=== PATIENT | male | born 1980 | race African-American/Black ===

== ENCOUNTER 2018-06-11 18:13 | Observation (INO) | payer OTHER, SELFPAY ==
[2018-06-11] MEDS ORDERED: LISINOPRIL 20 MG TAB ONE (19:25)
[2018-06-11] MEDS ORDERED: cloNIDine HCl 0.1 MG TAB ONE (19:25)
--- NOTE | 2018-06-11 19:34 | RAD REPORT ---
EXAM DESCRIPTION: RAD - Chest Pa And Lat (2 Views) - 06/11/2018 7:19 pm CLINICAL HISTORY: COUGH Chest pain. COMPARISON: No comparisons FINDINGS: Mild linear subsegmental atelectasis is present in the left mid lung. The lungs are otherw ise hyperexpanded but clear. The heart is normal in size. No displaced fractures. IMPRESSION: No acute or concerning finding suspected.
[2018-06-11] MEDS ORDERED: NA CHLORIDE 0.9% 500 ML ONE (20:01)
[2018-06-11 20:04] LABS: Absolute Lymphocytes (CBC) 3.2 K/uL (0.7-4.9); Absolute Monocytes 0.8 K/uL (0.1-1.3); Absolute Neutrophil 10.8 K/uL (1.8-8.0); Basophils % 2.1 % (0-1.3); Eosinophils % 2.8 % (0-4.4); Lymphocytes % 20.6 % (15.3-44.8); MCH 23.5 pg (27.0-35.0); MCV 73.8 fL (80-100); MPV 7.8 fL (7.6-11.3); Monocytes % 5.1 % (3.3-12.3); RBC Red Blood Cell Count 4.47 M/uL (4.33-5.43)
[2018-06-11 20:13] LABS: ALT/SGPT 16 U/L (12-78); AST/SGOT 15 U/L (15-37); Albumin 2.4 g/dL (3.4-5.0); Alkaline Phosphatase 92 U/L (45-117); BUN Blood Urea Nitrogen 19 mg/dL (7-18); Bicarbonate 26 mmol/L (21-32); Bilirubin Total 0.3 mg/dL (0.2-1.0); Glucose Level 102 mg/dL (74-106); Magnesium 1.7 mg/dL (1.8-2.4); Potassium 3.5 mmol/L (3.5-5.1); Protein, Total 8.3 g/dL (6.4-8.2); Sodium Level 142 mmol/L (136-145)
[2018-06-11 20:36] LABS: Platelet Estimate INCR; Urine White Blood Cell Casts 0
[2018-06-11 20:37] LABS: Anisocytosis 1+; Blood Morphology Comment NOTED (NOT SEEN); Platelets, Giant FEW
[2018-06-11] MEDS ORDERED: ACETAMINOPHEN 500 MG TAB PO PRN (21:15)
[2018-06-11] MEDS ORDERED: MORPHINE 2 MG/ML SYR IV PRN (21:15)
[2018-06-11] MEDS ORDERED: ONDANSETRON 4 MG/2 ML VIAL IV PRN (21:15)
[2018-06-11] MEDS ORDERED: METOPROLOL TAR 50 MG TAB PO ONE (21:18)
[2018-06-11 21:25] LABS: Barbiturates NEGATIVE (NEGATIVE); Benzodiazepines NEGATIVE (NEGATIVE); Cocaine NEGATIVE (NEGATIVE); METHAMPHETAM NEGATIVE (NEGATIVE); Methadone NEGATIVE (NEGATIVE); Opiates NEGATIVE (NEGATIVE); Phencyclidine NEGATIVE (NEGATIVE); THC Cannibis NEGATIVE (NEGATIVE)
[2018-06-11 21:31] LABS: Urine Blood 2+ (NEG); Urine Glucose TRACE (NEG); Urine Protein 3+ (NEG); Urine Specific Gravity 1.025 (1.005-1.030)
[2018-06-11 21:31] LABS: Urine Bacteria <20 /HPF (NONE SEEN); Urine Culture Reflex Order REFLEXED
--- NOTE | 2018-06-11 21:42 | ER ---
Nurse's Notes [facility] Name: Joss Sheppard Age: 37 yrs Sex: Male : 1980 Arrival Date: 06/11/2018 Time: 18:14 Bed 6 Private MD: SLY DE PAZ Diagnosis: Acute kidney failure;Hypertensive heart disease Presentation: 06/11 18:42 Presenting complaint: Patient states: c/o sore throat X 1 week, + cough, no fever, also iw ran out of BP meds X 2 weeks ago, does not know name of BP med, denies headache, dizziness or blurry vision. Transition of care: patient was not received from another setting of care. Onset of symptoms was June 05, 2018. Risk Assessment: Do you want to hurt yourself or someone else? Patient reports no desire to harm self or others. Initial Sepsis Screen: Does the patient meet any 2 criteria? No. Patient's initial sepsis screen is negative. Does the patient have a suspected source of infection? No. Patient's initial sepsis screen is negative. Care prior to arrival: None. 18:42 Method Of Arrival: Ambulatory iw 18:42 Acuity: BG 3 iw Historical: - Allergies: 18:47 NKA; iw - Home Meds: 18:47 Lisinopril Oral [Active]; Tresiba FlexTouch U-100 100 unit/mL (3 mL) subcutaneous inpn iw daily [Active]; - PMHx: 18:47 Hypertension; Diabetes - IDDM; iw - PSHx: 18:47 None; iw - Immunization history:: Adult Immunizations not up to date. - Social history:: Smoking status: Patient/guardian denies using tobacco. - Ebola Screening: : Patient negative for fever greater than or equal to 101.5 degrees Fahrenheit, and additional compatible Ebola Virus Disease symptoms Patient denies exposure to infectious person Patient denies travel to an Ebola-affected area in the 21 days before illness onset No symptoms or risks identified at this time. Screenin:25 Abuse screen: Denies threats or abuse. Denies injuries from another. Nutritional sv screening: No deficits noted. Tuberculosis screening: No symptoms or risk factors identified. Fall Risk None identified. Assessment: 18:25 General: Appears in no apparent distress. uncomfortable, obese, Behavior is calm, sv cooperative, appropriate for age. General: Reports he has been out of his BP meds for about 2 weeks. Pain: Complains of pain in throat Pain currently is 5 out of 10 on a pain scale. Neuro: Level of Consciousness is awake, alert, obeys commands, Oriented to person, place, time, situation, Moves all extremities. Full function Gait is steady, Speech is normal. Respiratory: Airway is patent Respiratory effort is even, unlabored, Respiratory pattern is regular, symmetrical. EENT: Reports pain in throat. Derm: Skin is normal. 19:10 General: Appears in no apparent distress. uncomfortable, Behavior is calm, cooperative, rr5 appropriate for age. Pain: Complains of pain in sore Pain currently is 5 out of 10 on a pain scale. Quality of pain is described as aching, Pain began gradually, Is intermittent. Neuro: Level of Consciousness is awake, alert, obeys commands, Oriented to Moves all extremities. Full function Gait is steady, Speech is normal. Cardiovascular: Capillary refill < 3 seconds. Respiratory: Airway is patent Respiratory effort is even, unlabored, Breath sounds are clear. 19:10 GI: No signs and/or symptoms were reported involving the gastrointestinal system. : rr5 No signs and/or symptoms were reported regarding the genitourinary system. EENT: Throat is reddened with gag reflex present, Reports pain. 20:40 Reassessment: still there is pain but much better now. Patient states feeling better. rr5 21:30 Reassessment: Patient appears in no apparent distress at this time. asleep no rr5 complaints made. Patient states symptoms have improved. 22:20 Reassessment: Patient appears in no apparent distress at this time. awaiting for room rr5 for admission. 23:15 Reassessment: Patient appears in no apparent distress at this time. bp 176/105 mmhg rr5 rechecked page PA informed. Vital Signs: 18:22 BP 227 / 127; Pulse 112; Resp 20; Pulse Ox 98% ; sv 18:35 BP 233 / 124; Pulse 107; Resp 20; Temp 99.0(O); Pulse Ox 97% on R/A; Weight 182.34 kg iw (R); Height 5 ft. 10 in. (177.80 cm); Pain 5/10; 19:55 BP 232 / 149; Pulse 104; Resp 20; Pulse Ox 98% on R/A; tl2 21:04 BP 199 / 142; Pulse 103; Resp 18; Pulse Ox 99% on R/A; tl2 22:00 BP 191 / 123; Pulse 96; Resp 19; Pulse Ox 99% on R/A; rr5 22:50 BP 191 / 115; Pulse 84; Resp 22; Pulse Ox 96% on R/A; tl2 23:00 BP 189 / 113; Pulse 87; Resp 21; Pulse Ox 96% ; rr5 23:25 BP 176 / 105; Pulse 92; Resp 21; Pulse Ox 97% ; rr5 18:35 Body Mass Index 57.68 (182.34 kg, 177.80 cm) iw [place] Coma Score: 22:00 Eye Response: spontaneous(4). Verbal Response: oriented(5). Motor Response: obeys rr5 commands(6). Total: 15. ED Course: 18:14 Patient arrived in ED. sb2 18:15 SLY DE PAZ is Private Physician. sb2 18:25 Patient has correct armband on for positive identification. Bed in low position. Head sv of bed elevated. 18:27 Dafne Camp, RN is Primary Nurse. sv 18:28 Arm band placed on. sv 18:30 Kory Meek PA is PHCP. cp 18:30 Alex Baez MD is Attending Physician. cp 18:44 Triage completed. iw 18:47 Patient moved to radiology via wheelchair. sv 18:53 Patient moved back from radiology. sg4 18:54 X-ray completed. Patient tolerated procedure well. sg4 19:07 Primary Nurse role handed off by Dafne Camp RN sv 19:15 Bassam Dover, SUSANA is Primary Nurse. rr5 19:16 Brenton Abrams MD is Attending Physician. cp 19:20 XRAY Chest Pa And Lat (2 Views) In Process Unspecified. EDMS 19:38 Inserted saline lock: 20 gauge in right antecubital area, using aseptic technique. mw2 Blood collected. 21:41 Jorje Case MD is Hospitalizing Provider. cp 21:58 Ultrasound completed. Patient tolerated well. Patient moved back from ultrasound. cy 23:30 No provider procedures requiring assistance completed. Patient admitted, IV remains in rr5 place. Administered Medications: 19:20 Drug: cloNIDine 0.2 mg Route: PO; rr5 23:34 Follow up: Response: No adverse reaction rr5 19:20 Drug: Lisinopril 20 mg Route: PO; rr5 23:34 Follow up: Response: No adverse reaction rr5 19:54 Drug: NS 0.9% 500 ml Route: IV; Rate: bolus; Site: left antecubital; tl2 20:30 Follow up: Response: No adverse reaction; IV Status: Completed infusion; IV Intake: rr5 500ml 22:00 Drug: Trandate 20 mg {Note: bp 191/123.} Route: IVP; Site: left antecubital; rr5 23:33 Follow up: Response: No adverse reaction rr5 22:00 Drug: NS 0.9% 1000 ml Route: IV; Rate: 1 bolus; Site: left antecubital; rr5 23:33 Follow up: Response: No adverse reaction; IV Status: Completed infusion; IV Intake: rr5 1000ml 22:10 Drug: GI Cocktail without - (Maalox Suspension 30 ml, Lidocaine Liquid 2 % 15 rr5 ml) Route: PO; 23:31 Follow up: Response: No adverse reaction; Marked relief of symptoms rr5 22:27 Drug: Magnesium Sulfate 1 grams {Note: mg 1.7,BP 192/115.} Route: IVPB; Infused Over: 1 rr5 hrs; Site: left antecubital; 23:30 Follow up: Response: No adverse reaction; IV Status: Completed infusion; IV Intake: rr5 100ml 23:32 Not Given (shifted to telemetry): NS 0.9% 1000 ml IV at 100 ml/hr continuous rr5 Intake: 20:30 IV: 500ml; Total: 500ml. rr5 23:30 IV: 100ml; Total: 600ml. rr5 23:33 IV: 1000ml; Total: 1600ml. rr5 Outcome: 21:41 Decision to Hospitalize by Provider. cp 23:15 Admitted to Tele accompanied by tech, via wheelchair, with chart, Report called to rr5 matt 23:15 Condition: stable rr5 23:15 Instructed on the need for admit. 23:35 Patient left the ED. rr5 Signatures: Dispatcher [employer] EDDafne Caro RN RN sv Williams, Irene, RN RN iw Page, Corey, PA PA cp Knox, Taylor RN RN tl2 Ynes Ellis Sheri sb2 Erika Barrios 2 Sandy Sims 4 Bassam Dover, RN RN rr5 Corrections: (The following items were deleted from the chart) 18:48 18:35 BP 233 / 124; Pulse 107bpm; Resp 20bpm; Pulse Ox 97% RA; sv iw
--- NOTE | 2018-06-11 21:42 | EDPHYS ---
Physician Documentation [facility] Name: Joss Sheppard Age: 37 yrs Sex: Male : 1980 Arrival Date: 06/11/2018 Time: 18:14 Bed 6 Private MD: SLY DE PAZ ED Physician Brenton Abrams HPI: 06/11 18:40 This 37 yrs old Black Male presents to ER via Ambulatory with complaints of High Blood cp Pressure, Sore Throat. 18:40 The patient or guardian reports cough, that is intermittent. Onset: The cp symptoms/episode began/occurred 1 week(s) ago. 18:40 Associated signs and symptoms: Pertinent positives: earache, sore throat. cp 18:40 Associated signs and symptoms: Pertinent negatives: chest pain, headache, visual cp changes, vomiting, weakness. Severity of symptoms: in the emergency department the blood pressure is unchanged. Historical: - Allergies: 18:47 NKA; iw - Home Meds: 18:47 Lisinopril Oral [Active]; Tresiba FlexTouch U-100 100 unit/mL (3 mL) subcutaneous inpn iw daily [Active]; - PMHx: 18:47 Hypertension; Diabetes - IDDM; iw - PSHx: 18:47 None; iw - Immunization history:: Adult Immunizations not up to date. - Social history:: Smoking status: Patient/guardian denies using tobacco. - Ebola Screening: : Patient negative for fever greater than or equal to 101.5 degrees Fahrenheit, and additional compatible Ebola Virus Disease symptoms Patient denies exposure to infectious person Patient denies travel to an Ebola-affected area in the 21 days before illness onset No symptoms or risks identified at this time. ROS: 18:45 Constitutional: Negative for body aches, chills, fever, poor PO intake. cp 18:45 Eyes: Negative for injury, pain, redness, and discharge. cp 18:45 ENT: Positive for sore throat, Negative for drainage from ear(s), ear pain, difficulty swallowing, difficulty handling secretions. 18:45 Neck: Negative for pain with movement, pain at rest, stiffness, swelling. 18:45 Cardiovascular: Negative for chest pain, edema, palpitations. 18:45 Respiratory: Positive for cough, with no reported sputum, Negative for shortness of breath, wheezing. 18:45 Abdomen/GI: Negative for abdominal pain, vomiting, diarrhea, constipation, black/tarry stool, rectal bleeding. 18:45 Back: Negative for pain at rest, pain with movement. 18:45 : Negative for urinary symptoms. 18:45 Skin: Negative for cellulitis, rash. 18:45 Neuro: Negative for altered mental status, dizziness, headache, seizure activity, syncope, near syncope, weakness. 18:45 All other systems are negative. Exam: 18:52 Constitutional: The patient appears in no acute distress, alert, awake, cp non-diaphoretic, non-toxic, well developed, well nourished, morbid obesity 18:52 Head/Face: Normocephalic, atraumatic. Eyes: Pupils equal round and reactive to light, cp extra-ocular motions intact. Lids and lashes normal. Conjunctiva and sclera are non-icteric and not injected. Cornea within normal limits. Periorbital areas with no swelling, redness, or edema. 18:52 ENT: External ear(s): are unremarkable, Ear canal(s): are normal, clear, TM's: bulging, is not appreciated, bilaterally, dullness, bilaterally, erythema, is not appreciated, bilaterally, Nose: is normal, Mouth: Lips: moist, Oral mucosa: pink and intact, moist, Tongue: is normal, abscess, is not appreciated, Posterior pharynx: Airway: no evidence of obstruction, patent, Tonsils: are normal in appearance, Uvula: midline, non-edematous, no erythema, swelling, is not appreciated, erythema, that is mild, exudate, is not appreciated, Voice: is normal. 18:52 Neck: External neck: is normal, ROM/movement: is normal, is supple, without pain, no range of motions limitations, no meningismus, no nuchal rigidity, Lymph nodes: no appreciated lymphadenopathy. 18:52 Chest/axilla: Inspection: normal, Palpation: is normal, no crepitus, no tenderness. 18:52 Cardiovascular: Rate: tachycardic, Rhythm: regular, Edema: is not appreciated, JVD: is not appreciated. 18:52 Respiratory: the patient does not display signs of respiratory distress, Respirations: normal, no use of accessory muscles, no retractions, no splinting, no tachypnea, labored breathing, is not present, Breath sounds: are clear throughout, no decreased breath sounds, no stridor, no wheezing. 18:52 Abdomen/GI: Inspection: obese Bowel sounds: active, all quadrants, Palpation: abdomen is soft and non-tender, in all quadrants, rebound tenderness, is not appreciated, voluntary guarding, is not appreciated, involuntary guarding, is not appreciated. 18:52 Back: pain, is absent, ROM is normal. 18:52 Musculoskeletal/extremity: Exam is negative for calf tenderness, decreased range of motion, injury. 18:52 Skin: cellulitis, is not appreciated, no rash present. 18:52 Neuro: Orientation: to person, place \T\ time. Mentation: is normal, Cerebellar function: is grossly normal, Motor: moves all fours, strength is normal, Sensation: is normal, Gait: is steady, at a normal pace, without difficulty. 19:16 ECG was reviewed by the Attending Physician. cp Vital Signs: 18:22 BP 227 / 127; Pulse 112; Resp 20; Pulse Ox 98% ; sv 18:35 BP 233 / 124; Pulse 107; Resp 20; Temp 99.0(O); Pulse Ox 97% on R/A; Weight 182.34 kg iw (R); Height 5 ft. 10 in. (177.80 cm); Pain 5/10; 19:55 BP 232 / 149; Pulse 104; Resp 20; Pulse Ox 98% on R/A; tl2 21:04 BP 199 / 142; Pulse 103; Resp 18; Pulse Ox 99% on R/A; tl2 22:00 BP 191 / 123; Pulse 96; Resp 19; Pulse Ox 99% on R/A; rr5 22:50 BP 191 / 115; Pulse 84; Resp 22; Pulse Ox 96% on R/A; tl2 23:00 BP 189 / 113; Pulse 87; Resp 21; Pulse Ox 96% ; rr5 23:25 BP 176 / 105; Pulse 92; Resp 21; Pulse Ox 97% ; rr5 18:35 Body Mass Index 57.68 (182.34 kg, 177.80 cm) iw [place] Coma Score: 22:00 Eye Response: spontaneous(4). Verbal Response: oriented(5). Motor Response: obeys rr5 commands(6). Total: 15. MDM: 18:35 Patient medically screened. 21:15 Data reviewed: vital signs, nurses notes, lab test result(s), EKG, radiologic studies, cp plain films, and as a result, I will admit patient. 21:15 Test interpretation: by ED physician or midlevel provider: ECG, plain radiologic cp studies. Counseling: I had a detailed discussion with the patient and/or guardian regarding: the historical points, exam findings, and any diagnostic results supporting the discharge/admit diagnosis, lab results, radiology results, the need for further work-up and treatment in the hospital. Response to treatment: the patient's symptoms have mildly improved after treatment. Physician consultation: Jorje Case MD was called at 21:15, was contacted at 21:15, regarding admission, to the telemetry unit. patient's condition. 06/11 18:34 Order name: Strep; Complete Time: 19:38 06/11 19:38 Interpretation: Reviewed. 06/11 18:35 Order name: Magnesium; Complete Time: 20:47 06/11 22:02 Interpretation: Abnormal: MG 1.7. 06/11 18:35 Order name: CBC with Diff; Complete Time: 20:47 06/11 20:48 Interpretation: Normal except: WBC 15.5; HGB 10.5; HCT 33.0; MCV 73.8; MCH 23.5; MCHC cp 31.8; PLT 633; RDW 15.7; BASO% 2.1; NEUT A 10.8. 06/11 18:35 Order name: CMP; Complete Time: 20:47 06/11 22:02 Interpretation: Normal except: CL 108; BUN 19; CRE 2.00; GFR 46; TP 8.3; ALB 2.4; GLOB cp 5.9; A/G 0.4. 06/11 18:35 Order name: Ketone, Serum; Complete Time: 20:47 06/11 19:18 Order name: Glucose, Ancillary Testing; Complete Time: 19:38 EDAR 06/11 19:34 Order name: Throat Culture EDAR 06/11 20:15 Order name: CBC Smear Scan; Complete Time: 20:47 EDAR 06/11 21:02 Order name: UDS; Complete Time: 22:01 06/11 21:02 Order name: Urine Microscopic Only; Complete Time: 22:01 06/11 22:01 Interpretation: Normal except: UWBC 5-10; URBC 5-10; SQEPI 5-10. cp 06/11 21:11 Order name: Urine Dipstick--Ancillary (enter results); Complete Time: 22:01 ar5 06/11 22:01 Interpretation: Normal except: UBLD 2+; UPROT 3+. cp 06/11 21:18 Order name: CBC with Automated Diff EDMS 06/11 21:18 Order name: CBC with Automated Diff EDMS 06/11 21:18 Order name: Comprehensive Metabolic Panel EDMS 06/11 18:35 Order name: EKG; Complete Time: 18:36 cp 06/11 18:35 Order name: XRAY Chest Pa And Lat (2 Views); Complete Time: 19:38 cp 06/11 19:38 Interpretation: Report reviewed. 06/11 21:18 Order name: CONS Pharmacy Consult EDMS 06/11 21:18 Order name: Comprehensive Metabolic Panel EDMS 06/11 21:19 Order name: US Rp Exam Complete cp 06/11 21:20 Order name: Echo with Doppler EDMS 06/11 21:20 Order name: Echo with Doppler EDMS 06/11 21:53 Order name: US; Complete Time: 22:01 EDMS 06/11 22:01 Interpretation: Report reviewed. 06/11 18:35 Order name: EKG - Nurse/Tech; Complete Time: 19:31 cp 06/11 18:35 Order name: Accucheck Blood Glucose; Complete Time: 19:31 cp 06/11 18:35 Order name: Urine Dipstick-Ancillary (obtain specimen); Complete Time: 20:55 06/11 21:18 Order name: CONS Physician Consult EDMS 06/11 21:18 Order name: NPO EDMS EC:16 Rate is 106 beats/min. Rhythm is regular. SC interval is normal. QRS interval is cp normal. QT interval is normal. Interpreted by me. Reviewed by me. Administered Medications: 19:20 Drug: cloNIDine 0.2 mg Route: PO; rr5 23:34 Follow up: Response: No adverse reaction rr5 19:20 Drug: Lisinopril 20 mg Route: PO; rr5 23:34 Follow up: Response: No adverse reaction rr5 19:54 Drug: NS 0.9% 500 ml Route: IV; Rate: bolus; Site: left antecubital; tl2 20:30 Follow up: Response: No adverse reaction; IV Status: Completed infusion; IV Intake: rr5 500ml 22:00 Drug: Trandate 20 mg {Note: bp 191/123.} Route: IVP; Site: left antecubital; rr5 23:33 Follow up: Response: No adverse reaction rr5 22:00 Drug: NS 0.9% 1000 ml Route: IV; Rate: 1 bolus; Site: left antecubital; rr5 23:33 Follow up: Response: No adverse reaction; IV Status: Completed infusion; IV Intake: rr5 1000ml 22:10 Drug: GI Cocktail without - (Maalox Suspension 30 ml, Lidocaine Liquid 2 % 15 rr5 ml) Route: PO; 23:31 Follow up: Response: No adverse reaction; Marked relief of symptoms rr5 22:27 Drug: Magnesium Sulfate 1 grams {Note: mg 1.7,BP 192/115.} Route: IVPB; Infused Over: 1 rr5 hrs; Site: left antecubital; 23:30 Follow up: Response: No adverse reaction; IV Status: Completed infusion; IV Intake: rr5 100ml 23:32 Not Given (shifted to telemetry): NS 0.9% 1000 ml IV at 100 ml/hr continuous rr5 Disposition: 06/11/18 21:41 Hospitalization ordered by Jorje Case for Observation. Preliminary diagnosis are Acute kidney failure, Hypertensive heart disease. - Bed requested for Telemetry/MedSurg (observation). - Status is Observation. rr5 - Condition is Stable. - Problem is new. - Symptoms have improved. UTI on Admission? No Addendum: 06/15/2018 10:30 Co-signature as Attending Physician, Brenton Abrams MD. g s Signatures: Dispatcher [employer] EDBelen Gracia RN RN fc Williams, Irene, RN RN iw Page, Corey, PA PA cp Knox, Taylor, RN RN tl2 Brenton Abrams MD MD gs Roque, Raymond, RN RN rr5 Corrections: (The following items were deleted from the chart) 06/11 20:48 20:47 Normal except: WBC 15.5; HGB 10.5; HCT 33.0; MCV 73.8; MCH 23.5; MCHC 31.8; PLT cp 633; RDW 15.7; BASO% 2.1. cp 22:02 21:18 Normal except: CL 108; BUN 19; CRE 2.00; GFR 46; TP 8.3; ALB 2.4. cp cp 22:31 21:41 Hospitalization Ordered by Jorje Case MD for Observation. Preliminary fc diagnosis is Acute kidney failure; Hypertensive heart disease. Bed requested for Telemetry/MedSurg (observation). Status is Observation. Condition is Stable. Problem is new. Symptoms have improved. UTI on Admission? No. cp 23:35 22:31 06/11/2018 21:41 Hospitalization Ordered by Jorje Case MD for Observation. rr5 Preliminary diagnosis is Acute kidney failure; Hypertensive heart disease. Bed requested for Telemetry/MedSurg (observation). Status is Observation. Condition is Stable. Problem is new. Symptoms have improved. UTI on Admission? No. fc
--- NOTE | 2018-06-11 21:51 | RAD REPORT ---
EXAM DESCRIPTION: US - Renal Ultrasound-Complete - 06/11/2018 9:39 pm CLINICAL HISTORY: renal failure Flank pain COMPARISON: No comparisons FINDINGS: Both kidneys are normal in size, shape and echotexture. The right kidney measures 13.0 x 6.3 x 6.1 cm. No hydronephrosis, focal mass or perinephric fluid. The left kidney measures 13.0 x 5.8 x 5.6 cm. No hydronephrosis, focal mass or perinephric fluid. The urinary bladder is incompletely distended without gross abnormality seen. IMPRESSION: Unremarkable renal sonogram.
[2018-06-11] MEDS: NA CHLORIDE 0.9% 1,000 ML IV SCH (22:00)
[2018-06-11] MEDS ORDERED: LABETALOL 20 MG/4ML SYRINGE IV ONE (22:05)
[2018-06-11] MEDS ORDERED: NA CHLORIDE 0.9% 1,000 ML ONE (22:05)
[2018-06-11] MEDS ORDERED: LIDOCAINE VISCOUS 2% SOLN 15 ML UDC ONE (22:08)
[2018-06-11] MEDS ORDERED: MAGNE/ALUM HYDROXD 30 ML UCUP ONE (22:08)
[2018-06-11] MEDS ORDERED: MAGNESIUM SULFATE 1 gm IVPB 1 GM/100 ML BAG IV ONE (22:24)
[2018-06-12] MEDS ORDERED: METOPROLOL TARTRATE 5 MG/5 ML INJ IV STA ×2 (00:14→00:34)
[2018-06-12] MEDS: NA CHLORIDE 0.9% 1,000 ML IV SCH ×2 (00:20→12:40)
[2018-06-12 01:11] VITALS: O2SAT 97
[2018-06-12] MEDS ORDERED: METHYLPREDNISOLONE 125 MG INJ IV ONE (02:02)
[2018-06-12 03:20] VITALS: BMI 57.6
[2018-06-12] MEDS ORDERED: METOPROLOL TAR 50 MG TAB PO SCH ×3 (06:00→09:00)
[2018-06-12 06:22] LABS: Absolute Lymphocytes (CBC) 1.2 K/uL (0.7-4.9); Absolute Monocytes 0.1 K/uL (0.1-1.3); Absolute Neutrophil 11.7 K/uL (1.8-8.0); Basophils % 0.5 % (0-1.3); Eosinophils % 0.2 % (0-4.4); Hematocrit 30.1 % (39.6-49.0); Lymphocytes % 9.2 % (15.3-44.8); MCV 72.8 fL (80-100); MPV 7.8 fL (7.6-11.3); Monocytes % 0.8 % (3.3-12.3); RBC Red Blood Cell Count 4.14 M/uL (4.33-5.43)
[2018-06-12 06:31] LABS: Albumin 2.2 g/dL (3.4-5.0); Bilirubin Total 0.4 mg/dL (0.2-1.0); Potassium 3.7 mmol/L (3.5-5.1); Protein, Total 7.4 g/dL (6.4-8.2)
[2018-06-12] MEDS ORDERED: INFLUENZA VACCINE (for 3y+) 0.5 ML DOSE IMVAC ONE (08:00)
[2018-06-12] MEDS ORDERED: PNEUMOCOCCAL VACCINE 0.5 ML IMVAC ONE (08:00)
--- NOTE | 2018-06-12 08:29 | EKG ---
Test Date: 2018-06-11 Test Time: 19:12:10 Carpet Cutter: SHILPI MEASUREMENT RESULTS: Intervals: Rate: 106 NM: 158 QRSD: 84 QT: 350 QTc: 464 [place]: P: 62 NM: 158 QRS: 17 T: 92 INTERPRETIVE STATEMENTS: Sinus tachycardia Nonspecific T wave abnormality Abnormal ECG Compared to ECG 12/24/2004 10:21:00 T-wave abnormality now present Sinus rhythm no longer present Early repolarization no longer present Electronically Signed On 06-12-18 08:28:39 WIC SITE COORDINATOR by Familia Salinas
[2018-06-12] MEDS: AMLODIPINE 10 MG TAB PO SCH (09:04)
--- NOTE | 2018-06-12 10:39 | P.HP ---
Certification for Inpatient Patient admitted to: Observation With expected LOS: <2 Midnights Patient will require the following post-hospital care: None Practitioner: I am a practitioner with admitting privileges, knowledge of patient current condition, hospital course, and medical plan of care. Services: Services provided to patient in accordance with Admission requirements found in Title 42 Section 412.3 of the Code of Federal Regulations Patient History Date of Service: 06/11/18 Reason for admission: malignant hypertension / acute kidney failure History of Present Illness: Patient is a 37-year-old gentleman who came into the hospital with shortness of breath. Patient blood pressure was significantly elevated. His kidney function was very altered. Patient is morbidly obese with a BMI of greater than 50. clinically, patient has not been taking good care of himself. He looks to be doing very poorly. His renal function and blood pressure are poorly controlled. He has not been seeing his physician and he does not have any medications because he hasn't followed up with his physician. He will be admitted for further evaluation. Allergies No Known Allergies Allergy (Verified 06/12/18 02:18) Home Medications: Insulin Degludec [Tresiba Flextouch U-100] 36 units SQ DAILY 06/12/18 - Past Medical/Surgical History Has patient received pneumonia vaccine in the past: No Diabetic: Yes -: IDDM -: HTN Past Surgical History: Patient denies surgical history - Family History Father Medical History: Hypertension, Diabetes Mother Medical History: Hypertension, Diabetes - Social History Smoking Status: Never smoker Alcohol use: Yes CD- Drugs: No Caffeine use: Yes Place of Residence: Home Review of Systems 10-point ROS is otherwise unremarkable Physical Examination - Vital Signs Temperature: 98.5 F Blood Pressure: 189/104 Pulse: 86 Respirations: 20 Pulse Ox (%): 98 - Physical Exam General: Alert, In no apparent distress, Oriented x3 HEENT: Atraumatic, PERRLA, Mucous membr. moist/pink, EOMI, Sclerae nonicteric Neck: Supple, 2+ carotid pulse no bruit, No LAD, Without JVD or thyroid abnormality Respiratory: Clear to auscultation bilaterally, Normal air movement Cardiovascular: Regular rate/rhythm, Normal S1 S2, No murmurs Gastrointestinal: Normal bowel sounds, Soft and benign, Non-distended, No tenderness Musculoskeletal: No clubbing, No swelling, No tenderness Integumentary: No rashes Neurological: Normal gait, Normal speech, Normal strength at 5/5 x4 extr, Normal tone, Sensation intact, Cranial nerves 3-12 intact, Normal affect Lymphatics: No axilla or inguinal lymphadenopathy - Studies Laboratory Data (last 24 hrs) 06/11/18 19:40: WBC 15.5 H, Hgb 10.5 L, Hct 33.0 L, Plt Count 633 H 06/11/18 19:40: Sodium 142, Potassium 3.5, BUN 19 H, Creatinine 2.00 H, Glucose 102, Magnesium 1.7 L, Total Bilirubin 0.3, AST 15, ALT 16, Alkaline Phosphatase 92 Microbiology Data (last 24 hrs): 06/11/18 19:15 Throat Group A Streptococcus Rapid Screen - Final Assessment & Plan - Problems (Diagnosis) (1) Malignant diastolic hypertension with CHF, NYHA class 2 Current Visit: Yes Status: Acute (2) PASCALE (acute kidney injury) Onset Date: 06/12/18 Current Visit: Yes Status: Acute - Plan 1. Monitor labs closely 2. Cardiology/Nephrology consultation 3. Echocardiogram and Renal US 4. Strict BP control 5. IV morphine for pain 6. Nitro p.r.n. Discharge Plan: Home Plan to discharge in: 48 Hours - Advance Directives Does patient have a Living Will: No Does patient have a Durable POA for Healthcare: No - Code Status/Comfort Care Code Status Assessed: Yes Code Status: Full Code Critical Care: No Time Spent Managing PTS Care (In Minutes): 50
[2018-06-12] MEDS: CARVEDILOL 12.5 MG TAB PO SCH ×2 (12:41→20:08)
[2018-06-12] MEDS: LOSARTAN POTASSIUM 50 MG TABLET PO SCH (12:41)
--- NOTE | 2018-06-12 14:56 | P.PN ---
Subjective Date of Service: 06/12/18 Chief Complaint: malignant hypertension / acute kidney failure Patient seen and examined at bedside with RN. Chart reviewed. Case discussed with nephrology. Patient is doing much better than before at this time. Review of Systems 10-point ROS is otherwise unremarkable Physical Examination - Vital Signs Temperature: 98.3 F Blood Pressure: 186/98 Pulse: 82 Respirations: 16 Pulse Ox (%): 98 - Physical Exam General: Alert, In no apparent distress HEENT: Atraumatic, PERRLA, EOMI Neck: Supple, JVD not distended Respiratory: Clear to auscultation bilaterally, Normal air movement Cardiovascular: Regular rate/rhythm, Normal S1 S2 Gastrointestinal: Normal bowel sounds, No tenderness Musculoskeletal: No tenderness Integumentary: No rashes Neurological: Normal speech, Normal tone, Normal affect Lymphatics: No axilla or inguinal lymphadenopathy - Studies Laboratory Data (last 24 hrs) 06/11/18 19:40: WBC 15.5 H, Hgb 10.5 L, Hct 33.0 L, Plt Count 633 H 06/11/18 19:40: Sodium 142, Potassium 3.5, BUN 19 H, Creatinine 2.00 H, Glucose 102, Magnesium 1.7 L, Total Bilirubin 0.3, AST 15, ALT 16, Alkaline Phosphatase 92 Microbiology Data (last 24 hrs): 06/11/18 19:15 Throat Group A Streptococcus Rapid Screen - Final Medications List Reviewed: Yes Assessment And Plan - Current Problems (Diagnosis) (1) Malignant diastolic hypertension with CHF, NYHA class 2 Current Visit: Yes Status: Acute Plan: Most likely secondary to noncompliance with medication is patient ran out of his medicine he did not take any at home -will restart home medication at this time. -will monitor blood pressure closely here in the hospital. -nephrology has been called (2) PASCALE (acute kidney injury) Onset Date: 06/12/18 Current Visit: Yes Status: Acute Plan: BUN and creatinine improving today. Will continue to monitor closely. Nephrology is consulted awaiting recommendations at this time. Discharge Plan: Home Plan to discharge in: 48 Hours - Code Status/Comfort Care Code Status Assessed: Yes Critical Care: No
--- NOTE | 2018-06-12 15:12 | ECHO ---
HEIGHT: 5 ft 10 in WEIGHT: 402 lb 0 oz DATE OF STUDY: 06/12/[address]: Jorje Case MD 2-DIMENSIONAL: YES M.MODE: YES DOPPLER: YES COLOR FLOW: YES TDS: YES PORTABLE: NO DEFINITY: NO BUBBLE STUDY: NO DIAGNOSIS: MALIGNANT HYPERTENSION/ ANGINA CARDIAC HISTORY: CATHERIZATION: NO SURGERY: NO PROSTHETIC VALVE: NO PACEMAKER: NO MEASUREMENTS (cm) DIASTOLIC (NORMALS) SYSTOLIC (NORMALS) IVSd 1.4 (0.6-1.2) LA Diam 3.9 (1.9-4.0) LVEF 54% LVIDd 4.3 (3.5-5.7) LVIDs 3.1 (2.0-3.5) %FS 28% LVPWd 1.3 (0.6-1.2) Ao Diam 3.2 (2.0-3.7) 2 DIMENSIONAL ASSESSMENT: RIGHT ATRIUM: NORMAL LEFT ATRIUM: NORMAL RIGHT VENTRICLE: NORMAL LEFT VENTRICLE: LEFT VENTRICULAR HYPERTROPHY TRICUSPID VALVE: NORMAL MITRAL VALVE: NORMAL PULMONIC VALVE: NORMAL AORTIC VALVE: NORMAL PERICARDIAL EFFUSION: NONE AORTIC ROOT: NORMAL LEFT VENTRICULAR WALL MOTION: NORMAL DOPPLER/COLOR FLOW: NORMAL COMMENTS: LEFT VENTRICULAR HYPERTROPHY. NORMAL EJECTION FRACTION. NO WALL MOTION ABNORMALITY. TECHNOLOGIST: RICKEY HIRSCH RDCS
[2018-06-12] MEDS: HYDRALAZINE HCL 20 MG/ML VIAL IV PRN ×3 (16:11→23:02)
[2018-06-12] MEDS: TERAZOSIN HCL 1 MG CAP PO SCH (23:45)
--- NOTE | 2018-06-12 23:47 | P.CNS ---
Date of Consult: 06/12/18 Reason for Consult: PASCALE Requesting Physician: Sonja Ricardo Primary Care Provider: Awilda Nation Chief Complaint: malignant hypertension / acute kidney failure History of Present Illness: Patient is a 37-year-old gentleman who came into the hospital with shortness of breath. Patient blood pressure was significantly elevated. His kidney function was very altered. Patient is morbidly obese with a BMI of greater than 50. clinically, patient has not been taking good care of himself. He looks to be doing very poorly. His renal function and blood pressure are poorly controlled. He has not been seeing his physician and he does not have any medications because he hasn't followed up with his physician. He will be admitted for further evaluation. 18:40 This 37 yrs old Black Male presents to ER via Ambulatory with complaints of High Blood cp Pressure, Sore Throat. 18:40 The patient or guardian reports cough, that is intermittent. Onset: The cp symptoms/episode began/occurred 1 week(s) ago. 18:40 Associated signs and symptoms: Pertinent positives: earache, sore throat. cp 18:40 Associated signs and symptoms: Pertinent negatives: chest pain, headache, visual cp changes, vomiting, weakness. Severity of symptoms: in the emergency department the blood pressure is unchanged. Allergies No Known Allergies Allergy (Verified 06/12/18 02:18) Home medications list reviewed: Yes Home Medications: Amlodipine [Norvasc] 10 mg PO DAILY 06/12/18 Carvedilol [Coreg] 12.5 mg PO BID 06/12/18 Insulin Degludec [Tresiba Flextouch U-100] 36 units SQ DAILY 06/12/18 Losartan Potassium [Cozaar] 100 mg PO DAILY 06/12/18 Terazosin HCl 4 mg PO DAILY 06/12/18 - Past Medical/Surgical History Diabetic: Yes -: IDDM -: HTN - Family History Father Medical History: Hypertension, Diabetes Mother Medical History: Hypertension, Diabetes - Social History Alcohol use: Yes CD- Drugs: No Caffeine use: Yes Place of Residence: Home Review of Systems 10-point ROS is otherwise unremarkable General: Weakness Respiratory: SOB with Excertion Cardiovascular: Edema Physical Examination Temp Pulse Resp BP Pulse Ox 97.8 F 95 H 20 187/86 H 98 06/12/18 20:00 06/12/18 22:35 06/12/18 20:00 06/12/18 22:35 06/12/18 20:00 General: In no apparent distress, Oriented x3, Cooperative HEENT: Atraumatic, Mucous membr. moist/pink Neck: Supple Respiratory: Clear to auscultation bilaterally, Normal air movement Cardiovascular: Regular rate/rhythm, Edema Gastrointestinal: Soft and benign, Non-distended Musculoskeletal: No clubbing, No contractures Integumentary: No rashes, No cyanosis Neurological: Normal speech Blood work reviewed in the chart. Initial serum creatinine 2 Imagings Data: EXAM DESCRIPTION: US - Renal Ultrasound-Complete - 06/11/2018 9:39 pm CLINICAL HISTORY: renal failure Flank pain COMPARISON: No comparisons FINDINGS: Both kidneys are normal in size, shape and echotexture. The right kidney measures 13.0 x 6.3 x 6.1 cm. No hydronephrosis, focal mass or perinephric fluid. The left kidney measures 13.0 x 5.8 x 5.6 cm. No hydronephrosis, focal mass or perinephric fluid. The urinary bladder is incompletely distended without gross abnormality seen. IMPRESSION: Unremarkable renal sonogram. MEASUREMENTS (cm) DIASTOLIC (NORMALS) SYSTOLIC (NORMALS) IVSd 1.4 (0.6-1.2) LA Diam 3.9 (1.9-4.0) LVEF 54% LVIDd 4.3 (3.5-5.7) LVIDs 3.1 (2.0-3.5) %FS 28% LVPWd 1.3 (0.6-1.2) Ao Diam 3.2 (2.0-3.7) 2 DIMENSIONAL ASSESSMENT: RIGHT ATRIUM: NORMAL LEFT ATRIUM: NORMAL RIGHT VENTRICLE: NORMAL LEFT VENTRICLE: LEFT VENTRICULAR HYPERTROPHY TRICUSPID VALVE: NORMAL MITRAL VALVE: NORMAL PULMONIC VALVE: NORMAL AORTIC VALVE: NORMAL PERICARDIAL EFFUSION: NONE AORTIC ROOT: NORMAL LEFT VENTRICULAR WALL MOTION: NORMAL DOPPLER/COLOR FLOW: NORMAL COMMENTS: LEFT VENTRICULAR HYPERTROPHY. NORMAL EJECTION FRACTION. NO WALL MOTION ABNORMALITY. Conclusions/Impression: A/ PASCALE in the setting of malignant HTN. Malignant HTN with CHF/ CKD. DM II with CKD. CKD III with proteinuria. LE Edema. Microcytic anemia. P/ Continue current POC and Medications. Increase Coreg. Increase Terazosin. Wean steroids as tolerated. Counseled regarding good BP and DM control to preserve renal fx. No NSAIDs. AM labs. Daily weight. Thank you kindly for the consultation.
[2018-06-13 01:54] LABS: Folic Acid, (Folate) 3.4 ng/mL (3.1-17.5)
[2018-06-13 02:35] LABS: Urine Appearance CLEAR; Urine Bilirubin NEGATIVE (NEG); Urine Blood TRACE (NEG); Urine Color YELLOW; Urine Glucose TRACE (NEG); Urine Protein 3+ (NEG); Urine Specific Gravity 1.015 (1.005-1.030); Urine Urobilinogen 0.2 mg/dL (0.2-1.0)
[2018-06-13 03:46] LABS: Urine Bacteria <20 /HPF (NONE SEEN); Urine Culture Reflex Order NOT NEEDED; Urine RBC <5 /HPF (NONE SEEN)
[2018-06-13 06:27] LABS: Absolute Lymphocytes (CBC) 2.9 K/uL (0.7-4.9); Absolute Monocytes 0.7 K/uL (0.1-1.3); Absolute Neutrophil 9.6 K/uL (1.8-8.0); Basophils % 0.6 % (0-1.3); Hematocrit 28.2 % (39.6-49.0); Lymphocytes % 21.8 % (15.3-44.8); MCH 23.9 pg (27.0-35.0); MCV 73.3 fL (80-100); MPV 8.1 fL (7.6-11.3); RBC Red Blood Cell Count 3.84 M/uL (4.33-5.43)
[2018-06-13 06:59] LABS: Albumin 1.9 g/dL (3.4-5.0); Bilirubin Total 0.3 mg/dL (0.2-1.0); Magnesium 1.8 mg/dL (1.8-2.4); Phosphorus 3.2 mg/dL (2.5-4.9); Potassium 3.4 mmol/L (3.5-5.1); Protein, Total 6.4 g/dL (6.4-8.2); Uric Acid 7.2 mg/dL (3.5-7.2)
[2018-06-13] MEDS: TERAZOSIN HCL 1 MG CAP PO SCH (09:00)
[2018-06-13] MEDS ORDERED: TERAZOSIN HCL 1 MG CAP PO SCH (09:00)
[2018-06-13] MEDS ORDERED: CARVEDILOL 12.5 MG TAB PO SCH (09:00)
[2018-06-13] MEDS ORDERED: AMLODIPINE 10 MG TAB PO SCH (09:00)
[2018-06-13] MEDS: AMLODIPINE 10 MG TAB PO SCH (09:45)
[2018-06-13] MEDS: LOSARTAN POTASSIUM 50 MG TABLET PO SCH (09:46)
[2018-06-13] MEDS ORDERED: POTASSIUM CL SA 10 MEQ TAB PO ONE (11:02)
--- NOTE | 2018-06-13 12:36 | P.DS ---
Admission Date: 06/11/18 Discharge Date: 06/13/18 Primary Care Provider: Awilda Nation Disposition: ROUTINE DISCHARGE Discharge Condition: GOOD Reason for Admission: malignant hypertension / acute kidney failure - Problems (1) Malignant diastolic hypertension with CHF, NYHA class 2 Current Visit: Yes Status: Acute (2) PASCALE (acute kidney injury) Onset Date: 06/12/18 Current Visit: Yes Status: Acute Brief History of Present Illness: Patient is a 37-year-old gentleman who came into the hospital with shortness of breath. Patient blood pressure was significantly elevated. His kidney function was very altered. Patient is morbidly obese with a BMI of greater than 50. clinically, patient has not been taking good care of himself. He looks to be doing very poorly. His renal function and blood pressure are poorly controlled. He has not been seeing his physician and he does not have any medications because he hasn't followed up with his physician. He will be admitted for further evaluation. Hospital Course: Overall during the hospital stay patient remained stable Patient was initially admitted to the hospital for malignant hypertension along with a KI most likely secondary to malignant hypertension and poor dietary habits and poor chronic control his chronic illness. Nephrology was consulted who recommended the patient is hytrin in and Coreg be increased. Patient's medication were you basis of pressure did stabilize at that time. Patient had extensive lab work done here to evaluate for his a KI as well and was found to have significant proteinuria. At that time patient had a diagnosis of chronic kidney disease secondary to uncontrolled high blood pressure. Patient was asked to follow up with nephrology on discharge. Once patient was able to ambulate blood pressure has stabilized and was doing well overall patient was discharged home under stable condition. Patient was asked to follow up with the primary care provider and nephrology in about 1-2 days post discharge. No prescriptions were given for hytrin and Coreg to be taken at home. Vital Signs/Physical Exam: Temp Pulse Resp BP Pulse Ox 98.1 F 87 18 172/90 H 97 06/13/18 09:52 06/13/18 09:45 06/13/18 09:43 06/13/18 09:45 06/13/18 09:43 General: Alert, In no apparent distress HEENT: Atraumatic, PERRLA, EOMI Neck: Supple, JVD not distended Respiratory: Clear to auscultation bilaterally, Normal air movement Cardiovascular: Regular rate/rhythm, Normal S1 S2 Gastrointestinal: Normal bowel sounds, No tenderness Musculoskeletal: No tenderness Integumentary: No rashes Neurological: Normal speech, Normal tone, Normal affect Lymphatics: No axilla or inguinal lymphadenopathy Laboratory Data at Discharge: WBC 13.5 K/uL (4.3-10.9) H 06/13/18 05:04 Hgb 9.2 g/dL (13.6-17.9) L 06/13/18 05:04 Hct 28.2 % (39.6-49.0) L 06/13/18 05:04 Plt Count 564 K/uL (152-406) H 06/13/18 05:04 Sodium 140 mmol/L (136-145) 06/13/18 05:04 Potassium 3.4 mmol/L (3.5-5.1) L 06/13/18 05:04 BUN 22 mg/dL (7-18) H 06/13/18 05:04 Creatinine 1.60 mg/dL (0.55-1.3) H 06/13/18 05:04 Glucose 137 mg/dL (74-106) H 06/13/18 05:04 Uric Acid 7.2 mg/dL (3.5-7.2) 06/13/18 05:04 Phosphorus 3.2 mg/dL (2.5-4.9) 06/13/18 05:04 Magnesium 1.8 mg/dL (1.8-2.4) 06/13/18 05:04 Total Bilirubin 0.3 mg/dL (0.2-1.0) 06/13/18 05:04 AST 13 U/L (15-37) L 06/13/18 05:04 ALT 11 U/L (12-78) L 06/13/18 05:04 Alkaline Phosphatase 80 U/L (45-117) 06/13/18 05:04 Home Medications: Amlodipine [Norvasc*] 10 mg PO DAILY 06/12/18 Insulin Degludec [Tresiba Flextouch U-100] 36 units SQ DAILY 06/12/18 Losartan Potassium [Cozaar] 100 mg PO DAILY 06/12/18 Amlodipine [Norvasc*] 10 mg PO DAILY #30 tab 06/13/18 Carvedilol [Coreg*] 25 mg PO BID #60 tab 06/13/18 Terazosin HCl [Hytrin*] 4 mg PO BID #120 cap 06/13/18 New Medications: Amlodipine [Norvasc*] 10 mg PO DAILY #30 tab Carvedilol [Coreg*] 25 mg PO BID #60 tab Terazosin HCl [Hytrin*] 4 mg PO BID #120 cap Patient Discharge Instructions: Please f.u with Dr Duval in 1 to 2 week post discharge. Increase Coreg, Hytrin for your BP Diet: Regular Activity: Ad miesha Followup: Jett Jean Baptiste DO [ACTIVE - CAN ADMIT] -
[2018-06-13 14:15] VITALS: BP 158/76; TEMP 97.3
--- NOTE | 2018-06-13 20:42 | P.PN ---
Date of Service: 06/13/18 Vital Signs Temp Pulse Resp BP Pulse Ox 97.3 F 87 20 158/76 H 99 06/13/18 12:00 06/13/18 12:00 06/13/18 12:00 06/13/18 12:00 06/13/18 12:00 Microbiology Results 06/11/18 19:15 Throat Culture & Sensitivity - Preliminary 06/11/18 21:07 Clean Catch Urine Duke Count - Preliminary <10,000 CFU/ML. 06/11/18 21:07 Clean Catch Urine - Preliminary 06/11/18 19:15 Throat Group A Streptococcus Rapid Screen - Final Assessment/ Plan: Nephrology Feeling better today. CPS stable without CP or SOB. No acute events overnight. Vitals, medications, blood work and imaging reviewed in the chart. General: In no apparent distress, Oriented x3, Cooperative HEENT: Atraumatic, Mucous membr. moist/pink Neck: Supple Respiratory: Clear to auscultation bilaterally, Normal air movement Cardiovascular: Regular rate/rhythm, Edema Gastrointestinal: Soft and benign, Non-distended Musculoskeletal: No clubbing, No contractures Integumentary: No rashes, No cyanosis Neurological: Normal speech Blood work reviewed in the chart. Initial serum creatinine 2 Imagings Data: EXAM DESCRIPTION: US - Renal Ultrasound-Complete - 06/11/2018 9:39 pm CLINICAL HISTORY: renal failure Flank pain COMPARISON: No comparisons FINDINGS: Both kidneys are normal in size, shape and echotexture. The right kidney measures 13.0 x 6.3 x 6.1 cm. No hydronephrosis, focal mass or perinephric fluid. The left kidney measures 13.0 x 5.8 x 5.6 cm. No hydronephrosis, focal mass or perinephric fluid. The urinary bladder is incompletely distended without gross abnormality seen. IMPRESSION: Unremarkable renal sonogram. MEASUREMENTS (cm) DIASTOLIC (NORMALS) SYSTOLIC (NORMALS) IVSd 1.4 (0.6-1.2) LA Diam 3.9 (1.9-4.0) LVEF 54% LVIDd 4.3 (3.5-5.7) LVIDs 3.1 (2.0-3.5) %FS 28% LVPWd 1.3 (0.6-1.2) Ao Diam 3.2 (2.0-3.7) 2 DIMENSIONAL ASSESSMENT: RIGHT ATRIUM: NORMAL LEFT ATRIUM: NORMAL RIGHT VENTRICLE: NORMAL LEFT VENTRICLE: LEFT VENTRICULAR HYPERTROPHY TRICUSPID VALVE: NORMAL MITRAL VALVE: NORMAL PULMONIC VALVE: NORMAL AORTIC VALVE: NORMAL PERICARDIAL EFFUSION: NONE AORTIC ROOT: NORMAL LEFT VENTRICULAR WALL MOTION: NORMAL DOPPLER/COLOR FLOW: NORMAL COMMENTS: LEFT VENTRICULAR HYPERTROPHY. NORMAL EJECTION FRACTION. NO WALL MOTION ABNORMALITY. Conclusions/Impression: A/ PASCALE in the setting of malignant HTN. Malignant HTN with CHF/ CKD. DM II with CKD. CKD III with proteinuria. LE Edema. Microcytic anemia. Hypokalemia. P/ Continue current POC and Medications. Give potassium. Wean steroids as tolerated. Counseled regarding good BP and DM control to preserve renal fx. No NSAIDs. AM labs. Daily weight. Case discussed with Dr. Ricardo.
== END 2018-06-13 16:06 | disposition home or self-care (01) ==
LOC: ER 18:13 → ERHOLD 21:15 → 4TH 23:08
PROVIDERS: ADMIT Hospitalist; ATTEND Hospitalist
DX: I13.0 Hypertensive heart and chronic kidney disease with heart failure and stage 1 through stage 4 chronic kidney disease, or unspecified chronic kidney disease (principal); E11.22 Type 2 diabetes mellitus with diabetic chronic kidney disease; N18.3 Chronic kidney disease, stage 3 (moderate); I50.32 Chronic diastolic (congestive) heart failure; N17.9 Acute kidney failure, unspecified; E66.01 Morbid (severe) obesity due to excess calories; Z68.43 Body mass index [BMI] 50.0-59.9, adult
CPT/HCPCS: 36415; 71046; 76770; 80053; 80307; 81001; 81003; 81015; 82010; 82043; 82570; 82607; 82746; 82962; 83036; 83540; 83735; 84100; 84466; 84550; 85025; 87070; 87081; 87086; 87088; 93005; 93306; 96361; 96365; 96375; 99285; G0378; J0360; J2930; J3475; J7030

== ENCOUNTER 2022-12-14 07:09 | Inpatient (IN) | payer OTHER ==
--- OUTSIDE RECORDS SUMMARY | 2022-12-14 07:16 | XMS REPORT | Continuity of Care Document ---
:1980 Author Organization [facility] t Address [address] [place] [address] [place] [id number] Care Team Providers Name Role Phone Daiana MEZA, Marian Marquis Attending Clinician Nicolasa Nuñez DO Attending Clinician Jennie Ocasio DO Attending Clinician [phone] Cristi GARCIA, Jake Attending Clinician Monik GARCIA, Ronni Zarate Attending Clinician JENNIE OCASIO Attending Clinician Unavailable Cristi GARCIA, Jake Admitting Clinician JAKE LOCO Admitting Clinician Unavailable Payers Payer Name Policy Type Policy Number Effective Date Expiration Date S ource Problems Condition Condition Condition Status Onset Resolution Last Treating Co mments Source Name Details Category Date Date Treatment Clinician Date PASCALE (acute PASCALE (acute Disease Active U nivers kidney kidney 2-17 ity of injury) injury) 00:00: [place] 00 [facility] Branch Morbid Morbid Disease Active Univers obesity obesity 2-17 [place] of with body [place] mass index mass index 00 Me dical of 50 or of 50 or Branch higher higher Allergies, Adverse Reactions, Alerts Allergy Allergy Status Severity Reaction(s) Onset Inactive Treating Comm ents Source Name Type Date Date Clinician NO KNOWN Drug Active Univers ALLERGIE Class ity of [facility] Social History Social Habit Start Date Stop Date Quantity Comments Source Sex Assigned At [facility] Medical Branch Exposure to Not sure [facility] SARS-CoV-2 (event) Medica l Branch Tobacco use and 2020-08-23 2020-08-[address] [facility] exposure 00:00:00 00:00:00 Medical Branch History SDOH 2020-08-23 2020-08-23 13 [facility] Education 00:00:00 00:00:00 Medical Branch History SDOH 2020-08-23 2020-08-23 5 [facility] Financial 00:00:00 00:00:00 Medical Branch History SDOH Food 2020-08-23 2020-08-23 1 [facility]y of [place] Worry 00:00:00 00:00:00 Medical Branch History SDOH Food 2020-08-23 2020-08-23 1 [facility] [place] Scarcity 00:00:00 00:00:00 Medical Branch History SDOH 2020-08-23 2020-08-23 2 [facility] Transport Med 00:00:00 00:00:00 Medical Bra nch History SDOH 2020-08-23 2020-08-23 2 [facility] Transport Non-Med 00:00:00 00:00:00 Medical Branch Smoking Status Start Date Stop Date Source Never smoker [facility] Medical Branch Medications Ordered Filled Start Stop Current Ordering Indication Dosage Frequency Signature Comments Components Source Medication Medication Date Date Medication? Clinician (SIG) Name Name Blood-Gluco Yes [id number] Check Univers se Meter 3-02 blood ity of Misc 00:00: sugar bid [place] 00 before Medical meals DX Branch E11.9 Dispense as covered Lancing Yes [id number] Check Univ ers Device Misc 3-02 blood ity of 00:00: sugar bid [place] 00 before Medical meals DX Branch E11.9 blood sugar Yes [id number] Check Univers diagnostic 02 blood ity of (BLOOD 00:00: sugar bid [place] GLUCOSE 00 before Medical TEST) strip meals DX Bran ch E11.9 dispense as covered per insurance blood sugar 2020- No [id number] E11.8 Univers diagnostic 3-02 03-02 Dispense ity of (BLOOD 00:00: 00:00 the most [place] GLUCOSE 00 :00 affordable Medica l TEST) strip one Branch amLODIPine Yes [id number] 10mg Take 1 Univers 10 mg 2-23 tablet by ity of tablet 00:00: mouth [place] 00 daily. Medical Branch amLODIPine Yes [id number] 10mg Take 1 Univers 10 mg 2-23 tablet by ity of tablet 00:00: mouth [place] 00 daily. Medical Branch glipiZIDE Yes [id number] 2.5mg Take 1 U nivers XL 2.5 mg 2-23 tablet by ity o f 24 hr 00:00: mouth [place] tablet 00 daily with Medical breakfast. Branch amLODIPine Yes [id number] 10mg Take 1 Univers 10 mg 2-23 tablet by ity of tablet 00:00: mouth [place] 00 daily. Medical Branch glipiZIDE 0 Yes [id number] 2.5mg Take 1 U nivers XL 2.5 mg 2-23 tablet by ity o f 24 hr 00:00: mouth [place] tablet 00 daily with Medical breakfast. Branch amLODIPine Yes [id number] 10mg Take 1 Univers 10 mg 2-23 tablet by ity of tablet 00:00: mouth [place] 00 daily. Medical Branch glipiZIDE Yes [id number] 2.5mg Take 1 U nivers XL 2.5 mg 2-23 tablet by ity o f 24 hr 00:00: mouth [place] tablet 00 daily with Medical breakfast. Branch amLODIPine Yes [id number] 10mg Take 1 Univers 10 mg 2-23 tablet by ity of tablet 00:00: mouth [place] 00 daily. Medical Branch amLODIPine 2020- No [id number] 10mg Take 1 Univers 10 mg 2-23 -22 tablet by ity of tablet 00:00: 00:00 mouth [place] 00 :00 daily. Medical Branch insulin NPH 2020- No 30U inject 30 Univers and regular 2-28 08- Units ity of human 70-30 20:02: 00:00 under the [place] (HUMULIN 41 :00 skin 2 Medical 70/30 U-100 (two) Branch INSULIN) times 100 unit/mL daily (70-30) before injection breakfast and dinner. LISINOPRIL 2020- No Take by Uni vers ORAL 08-28 mouth. ity of 20:02: 00:00 [place] 41 :00 Medical Branch iron 2020- No 1000mg 1,000 mg, Unive rs dextran 08-28 IV ity of (INFED) 14:15: 19:25 Infusion, [place] 1,000 mg in 00 :00 ONCE, 1 Medic al NaCl 0.9% dose, Mon Branc h (NS) 500 mL 08/28/20 at IV infusion 0815, 500 mL iron 2020- No 25mg 25 mg, IV Univers dextran 08-28 Piggyback, ity o f (INFED) 25 14:15: 17:55 ONCE, 1 [place] as mg in NaCl 00 :00 dose, Mon Medi kallie 0.9% (NS) 08/28/20 at Bran ch 100 mL IV 0815, 100 piggyback mL tropicamide 2020- No 2[drp] 2 Drop, Univers (MYDRIACYL) 08-28 Both Eyes, i ty of 1 % 11:00: 10:58 ONCE, 1 [place] ophthalmic 00 :00 dose, Mon Medi kallie drops 2 08/28/20 at Branch Drop 0500, Routine phenylephri 2020- No 2[drp] 2 Drop, Univers ne 08-28 Both Eyes, ity of (WANDA-SYNEPH 11:00: 10:58 ONCE, 1 [place] RINE 00 :00 dose, [facility] Medical VISCOUS) 10 08/28/20 at Br anch % 0500, ophthalmic Routine drops 2 Drop carvediloL Yes [id number] 25mg Take 1 Univers 25 mg 2-22 tablet by ity of tablet 00:00: mouth 2 [place] 00 (two) Medical times Branch daily with meals. hydrALAZINE 0 Yes [id number] 10mg Take 1 Univers 10 mg 2-22 tablet by ity of tablet 00:00: mouth [place] 00 every 8 Medical (eight) Branch hours. sodium 0 Yes [id number] 650mg Take 1 Uni vers bicarbonate 2-22 tablet by ity of 650 mg 00:00: mouth 2 [place] tablet 00 (two) Medical times Branch daily. blood sugar 0 Yes [id number] Use as Univers diagnostic 08-28 directed ity o f (BLOOD 00:00: [place] GLUCOSE 00 Medical TEST) strip Branch Blood-Gluco Yes [id number] Use as Univers se Meter 08-28 directed ity of Misc 00:00: [place] 00 Medical Branch lancets 23 0 Yes [id number] Use as Univers gauge Misc 08-28 directed ity o f 00:00: [place] 00 Medical Branch Lancing 2020-0 Yes [id number] Use as Uni vers Device Misc 2-22 directed ity of 00:00: [place] 00 Medical Branch SITagliptin 2020-0 Yes [id number] 25mg Take 1 Univers 25 mg 2-22 tablet by ity of tablet 00:00: mouth [place] 00 daily. Medical Branch carvediloL 2020-0 Yes [id number] 25mg Take 1 Univers 25 mg 2-22 tablet by ity of tablet 00:00: mouth 2 [place] 00 (two) Medical times Branch daily with meals. hydrALAZINE 2020-0 Yes [id number] 10mg Take 1 Univers 10 mg 2-22 tablet by ity of tablet 00:00: mouth [place] 00 every 8 Medical (eight) Branch hours. sodium 2020-0 Yes [id number] 650mg Take 1 Uni vers bicarbonate 2-22 tablet by ity of 650 mg 00:00: mouth 2 [place] tablet 00 (two) Medical times Branch daily. blood sugar 2020-0 Yes [id number] Use as Univers diagnostic 2-22 directed ity o f (BLOOD 00:00: [place] GLUCOSE 00 Medical TEST) strip Branch Blood-Gluco 2020-0 Yes [id number] Use as Univers se Meter 2-22 directed ity of Misc 00:00: [place] 00 Medical Branch lancets 23 2020-0 Yes [id number] Use as Univers gauge Misc 2-22 directed ity o f 00:00: [place] 00 Medical Branch Lancing 2020-0 Yes [id number] Use as Uni vers Device Misc 2-22 directed ity of 00:00: [place] 00 Medical Branch carvediloL 2020-0 Yes [id number] 25mg Take 1 Univers 25 mg 2-22 tablet by ity of tablet 00:00: mouth 2 [place] 00 (two) Medical times Branch daily with meals. hydrALAZINE 2020-0 Yes [id number] 10mg Take 1 Univers 10 mg 2-22 tablet by ity of tablet 00:00: mouth [place] 00 every 8 Medical (eight) Branch hours. sodium 2020-0 Yes [id number] 650mg Take 1 Uni vers bicarbonate 2-22 tablet by ity of 650 mg 00:00: mouth 2 [place] tablet 00 (two) Medical times Branch daily. blood sugar 2020-0 Yes [id number] Use as Univers diagnostic 2-22 directed ity o f (BLOOD 00:00: [place] GLUCOSE 00 Medical TEST) strip Branch Blood-Gluco 0 Yes [id number] Use as Univers se Meter 2-22 directed ity of Misc 00:00: [place] 00 Medical Branch lancets 23 2020-0 Yes [id number] Use as Univers gauge Misc 2-22 directed ity o f 00:00: [place] 00 Medical Branch Lancing 2020-0 Yes [id number] Use as Uni vers Device Misc 2-22 directed ity of 00:00: [place] 00 Medical Branch carvediloL 2020-0 Yes [id number] 25mg Take 1 Univers 25 mg 2-22 tablet by ity of tablet 00:00: mouth 2 [place] 00 (two) Medical times Branch daily with meals. hydrALAZINE 0 Yes [id number] 10mg Take 1 Univers 10 mg 2-22 tablet by ity of tablet 00:00: mouth [place] 00 every 8 Medical (eight) Branch hours. sodium 0 Yes [id number] 650mg Take 1 Uni vers bicarbonate 2-22 tablet by ity of 650 mg 00:00: mouth 2 [place] tablet 00 (two) Medical times Branch daily. lancets 23 0 Yes [id number] Use as Univers gauge Misc 2-22 directed ity o f 00:00: [place] Medical Branch carvediloL 2020-0 Yes [id number] 25mg Take 1 Univers 25 mg 2-22 tablet by ity of tablet 00:00: mouth 2 [place] 00 (two) Medical times Branch daily with meals. hydrALAZINE 0 Yes [id number] 10mg Take 1 Univers 10 mg 2-22 tablet by ity of tablet 00:00: mouth [place] 00 every 8 Medical (eight) Branch hours. sodium 2020-0 Yes [id number] 650mg Take 1 Uni vers bicarbonate 2-22 tablet by ity of 650 mg 00:00: mouth 2 [place] tablet 00 (two) Medical times Branch daily. blood sugar 0 Yes [id number] Use as Univers diagnostic 2-22 directed ity o f (BLOOD 00:00: [place] GLUCOSE 00 Medical TEST) strip Branch Blood-Gluco 0 Yes [id number] Use as Univers se Meter 2-22 directed ity of Misc 00:00: [place] 00 Medical Branch lancets 23 2020-0 Yes [id number] Use as Univers gauge Misc 2-22 directed ity o f 00:00: [place] 00 Medical Branch Lancing Yes [id number] Use as Uni vers Device Misc 08-28 directed ity of 00:00: [place] 00 Medical Branch SITagliptin Yes [id number] 25mg Take 1 Univers 25 mg 2-22 tablet by ity of tablet 00:00: mouth [place] 00 daily. Medical Branch blood sugar 2020- No [id number] Use as Univers diagnostic 08-28 directed ity of (BLOOD 00:00: 00:00 [place] GLUCOSE 00 :00 Medical TEST) strip Branch Blood-Gluco 2020- No [id number] Use as Univers se Meter 08-28 directed ity of Misc 00:00: 00:00 [place] 00 :00 Medical Branch Lancing 2020- No [id number] Use as Un delmy Device Misc 08-28 directed ity of 00:00: 00:00 [place] 00 :00 Medical Branch SITagliptin 2020- No [id number] 25mg Take 1 Univers 25 mg 2-22 -23 tablet by ity of tablet 00:00: 00:00 mouth [place] 00 :00 daily. Medical Branch SITagliptin 2020- No [id number] 25mg Take 1 Univers 25 mg 2-22 -23 tablet by ity of tablet 00:00: 00:00 mouth [place] 00 :00 daily. Medical Branch carvediloL 2020- No [id number] 25mg Take 1 Univers 25 mg 2-22 -22 tablet by ity of tablet 00:00: 00:00 mouth 2 [place] 00 :00 (two) Medical times Branch daily with meals. hydrALAZINE 2020- No [id number] 10mg Take 1 Univers 10 mg 2-22 -22 tablet by ity of tablet 00:00: 00:00 mouth [place] 00 :00 every 8 Medical (eight) Branch hours. sodium 2020- No [id number] 650mg Take 1 Un delmy bicarbonate 2-22 -22 tablet by it y of 650 mg 00:00: 00:00 mouth 2 [place] tablet 00 :00 (two) Medical times Branch daily. SITagliptin 2020- No [id number] 25mg Take 1 Univers 25 mg 2-22 02-22 tablet by ity of tablet 00:00: 00:00 mouth [place] 00 :00 daily. Medical Branch Blood-Gluco 2020- No [id number] Use as Univers se Meter 08-28 directed ity of Misc 00:00: 00:00 [place] 00 :00 Medical Branch blood sugar 2020- No [id number] Use as Univers diagnostic 08-28 directed ity of (BLOOD 00:00: 00:00 [place] GLUCOSE 00 :00 Medical TEST) strip Branch lancets 23 2020- No [id number] Use as Univers gauge Misc 08-28 directed ity of 00:00: 00:00 [place] 00 :00 Medical Branch Lancing 2020- No [id number] Use as Un delmy Device Misc 08-28 directed ity of 00:00: 00:00 [place] 00 :00 Medical Branch hydrALAZINE Yes 10mg 10 mg, Univ ers (APRESOLINE 2-21 Oral, Q8H, it y of ) tablet 10 20:00: First dose [place] mg 00 on [place] [facility] 08/27/20 at Branch 1400, Until Discontinu ed, Routine carvediloL Yes 25mg 25 mg, Unive rs (COREG) 2-20 Oral, BID ity of tablet 25 14:00: MEALS, [place] mg 00 First dose Medical (after Branch last modificati on) on Fri08/26/20 at 0800, Until Discontinu ed, Routine sodium Yes 650mg 650 mg, Univers bicarbonate 2-19 Oral, BID, it y of (ANTACID 14:00: First dose [place] as (SODIUM 00 (after Medical BICARBONATE last Branch )) tablet modificati 650 mg on) on Fri08/25/20 at 0800, Until Discontinu ed, Routine sodium 2020- No 650mg 650 mg, Univer s bicarbonate 08-24 Oral, TID, i ty of (ANTACID 20:00: 13:10 [place] (SODIUM 00 :57 on [facility] BICARBONATE 08/24/[address] [facility] )) tablet 1400, 650 mg Until Discontinu ed, Routine D10W 10 % 2020- No at 50 Univer s IV infusion 08-24-19 mL/hr, IV it y of 19:15: 16:09 Infusion, [place] 00 :32 CONTINUOUS Medical , Starting Branch [facility] 08/24/20 at 1315, Until Fri08/25/20 at 1009, Routine carvediloL 2020- No 12.5mg 12.5 mg, Univers (COREG) 08-24-20 Oral, BID ity of tablet 12.5 16:15: 13:17 MEALS, [place] as mg 00 :13 First dose Medical on [facility] Branch 08/24/20 at 1015, Until Discontinu ed, Routine D10W 10 % 2020- No at 50 Univer s IV infusion 08-24-18 mL/hr, IV it y of 12:45: 12:42 Infusion, [place] 00 :00 ONCE, 1 Medical dose, [facility] Branch 08/24/20 at 0645, Routine magnesium 2020- No 2g 2 g, IV Univ ers sulfate in 08-24 Piggyback, it y of water 2 12:45: 12:17 ONCE, 1 [place] gram/50 mL 00 :00 dose, [facility] kallie (4 %) 08/24/20 at Branch infusion 2 0645, g Routine dextrose 50 Yes 50mL 50 mL, Univ ers % in water 08-24 Slow IV ity of (D50W) 11:47: Push, PRN, [place] injection 18 Starting Medica l 50 mL [facility] Branch 08/24/20 at 0547, Until Discontinu ed, AMBER, Blood Glucose < or = 70 mg/dL and patient is unable to swallow or has mental status changes. glucagon Yes 1mg 1 mg, Univers (GLUCAGEN 08-24 Intramuscu ity of DIAGNOSTIC 02:28: lar, PRN, [place] KIT) 41 Starting Medical injection 1 [facility] Branch mg 08/23/20 at 2028, Until Discontinu ed, AMBER, Blood Glucose < or = 70 mg/dL and patient is unable to swallow or has mental changes. amLODIPine Yes 10mg 10 mg, Unive rs (NORVASC) 08-24 Oral, ity of tablet 10 00:15: DAILY, [place] mg 00 First dose Medical on Fri Branch 08/23/20 at 1815, Until Discontinu ed, Routine doxycycline No 100mg 100 mg, U nivers hyclate 08-24 Oral, ity of (Vibramycin 00:00: 11:03 Q12HA2, 10 [place] ) capsule 00 :00 doses, Medical 100 mg First dose Branch on Fri08/23/20 at 1800, Last dose on Fri08/28/20 at 0600, AMBER
Re ason for Anti-Infec tive: Documented Infection< br>Documen charisse Infection Site: Skin / Soft Tissue
Duration of Therapy: Other (see Comments) metFORMIN No 500mg Take 500 Un delmy (GLUCOPHAGE 08-23 mg by ity of ) 500 mg 22:53: 00:00 mouth 2 [place] tablet 03 :00 (two) Medical times Branch daily with meals. NaCl 0.9% No 500mL at 500 Univ ers (NS) bolus 08-23 mL/hr, 500 it y of infusion 22:30: 22:44 mL, IV [place] 500 mL 00 :00 Infusion, Medical ONCE, 1 Branch dose, Fri08/23/20 at 1630, STAT Vital Signs Vital Name Observation Time Observation Value Comments Source Systolic blood 2020-08-28 17:56:00 170 mm[Hg] Univer sity of pressure [facility] Diastolic blood 2020-08-28 17:56:00 93 mm[Hg] [facility] Heart rate 2020-08-28 17:56:00 78 /min [facility] Body temperature 2020-08-28 17:56:00 36.11 [place] [facility] Respiratory rate 2020-08-28 17:56:00 18 /min [facility] Oxygen saturation in 2020-08-28 17:56:00 94 /min [facility] Arterial blood by [facility] Pulse oximetry [place] Body height 2020-08-24 02:55:00 177.8 cm [facility] Body weight 2020-08-24 02:55:00 172.367 kg [facility] BMI 2020-08-24 02:55:00 54.52 kg/m2 [facility] Procedures Procedure Date / Time Performing Clinician Source Performed POCT GLUCOSE (AUTOMATED) 2020-08-28 21:29:[facility] ([facility]) 2020-08-28 18:00:00 Jake Loco [facility] POCT GLUCOSE (AUTOMATED) 2020-08-28 14:51:00 Jake Loco [facility] BASIC METABOLIC PANEL (NA, 2020-08-28 11:11[facility], CO2, GLUCOSE, BUN, [place] Medica l Branch CREATININE, CA) CBC WITH DIFF 2020-08-28 11:11:00 Vignesh [facility] POCT GLUCOSE (AUTOMATED) 2020-08-28 10:12:00 Jake Loco [facility] POCT GLUCOSE (AUTOMATED) 2020-08-28 05:40:00 Jake Loco [facility] POCT GLUCOSE (AUTOMATED) 2020-08-28 01:59:00 Jake Loco [facility] POCT GLUCOSE (AUTOMATED) 2020-08-27 17:46:00 Jake Loco [facility] POCT GLUCOSE (AUTOMATED) 2020-08-27 14:31:00 Jake Loco [facility] BASIC METABOLIC PANEL (NA, 2020-08-27 11:10:00 [facility], CO2, GLUCOSE, BUN, [place] Med[facility] l Branch CREATININE, CA) CBC WITH DIFF 2020-08-27 11:10:00 Vignesh [facility] POCT GLUCOSE (AUTOMATED) 2020-08-27 09:56:00 Jake Loco [facility] POCT GLUCOSE (AUTOMATED) 2020-08-27 05:34:00 Jake Loco [facility] POCT GLUCOSE (AUTOMATED) 2020-08-27 01:54:00 Jake Loco [facility] POCT GLUCOSE (AUTOMATED) 2020-08-26 23:27:00 [facility]SE ([facility]OMATED) 2020-08-26 18:17:00 [facility] PO[facility]UCOSE (AUTOMATED) 2020-08-26 14:25:00 Jake Loco [facility] BASIC METABOLIC PANEL (NA, 2020-08-26 11:10:00 [facility], [facility], CO2, GLUCOSE, BUN, [place] [facility] CREATININE, CA) CBC WITH DIFF 2020-08-26 11:10:00 Vignesh [facility] POCT GLUCOSE (AUTOMATED) 2020-08-26 10:00:00 Jake Loco [facility] POCT GLUCOSE (AUTOMATED) 2020-08-26 05:40:00 Jake Loco [facility] POCT GLUCOSE (AUTOMATED) 2020-08-26 01:51:00 [facility] PO[facility]SE (AUTOMATED) 2020-08-25 23:09:00 Jake Loco [facility] POCT GLUCOSE (AUTOMATED) 2020-08-25 19:15:00 [facility] PO[facility]UCOSE (AUTOMATED) 2020-08-25 14:28:00 [facility] MAGNESIUM 2020-08-25 12:12:00 [facility] BASIC METABOLIC PANEL (NA, 2020-08-25 12:12:00 [facility], CL, CO2, GLUCOSE, BUN, [place] Medica l Branch CREATININE, CA) CBC WITH DIFF 2020-08-25 12:11:00 [facility] POCT GLUCOSE (AUTOMATED) 2020-08-25 09:36:00 [facility] PO[facility] GLUCOSE (AUTOMATED) 2020-08-25 05:45:00 Rischall, Jake [facility] POCT GLUCOSE (AUTOMATED) 2020-08-25 03:26:00 Jake Loco [facility] BLOOD CULTURE SCREEN 2020-08-25 00:51:00 Nicolasa Nuñez [facility] POCT GLUCOSE (AUTOMATED) 2020-08-24 22:12:00 Jake Loco [facility] HB DIRECT ANTIGLOBULIN 2020-08-24 21:20:00 Vignesh [facility] (POLY SPEC [facility] BLOOD CULTURE SCREEN 2020-08-24 21:17:00 Nicolasa Nuñez [facility] LACTATE DEHYDROGENASE 2020-08-24 21:15:00 [facility] INTACT PTH CALCIUM GROUP 2020-08-24 21:15:00 Tom Richard [facility] VITAMIN D, 25-OH 2020-08-24 21:15:00 Savannah [facility] MICROALBUMIN URINE 2020-08-24 19:32:00 Tom Richard [facility] UREA NITROGEN, URINE 2020-08-24 19:32:00 Tom Richard [facility] POCT GLUCOSE (AUTOMATED) 2020-08-24 18:24:00 Jake Loco [facility] POCT GLUCOSE (AUTOMATED) 2020-08-24 16:30:00 Jake Loco [facility] POCT GLUCOSE (AUTOMATED) 2020-08-24 14:58:00 Jake Loco [facility] POCT GLUCOSE (AUTOMATED) 2020-08-24 12:02:00 Jake Loco [facility] MAGNESIUM 2020-08-24 10:47:00 [facility] BASIC METABOLIC PANEL (NA, 2020-08-24 10:47:00 Nicolasa Nuñez [facility] K, CL, CO2, GLUCOSE, BUN, Medica l Branch CREATININE, CA) CBC WITH DIFF 2020-08-24 10:47:00 Sav[place] [facility] [place] GLYCOSYLATED HEMOGLOBIN 2020-08-24 10:47:00 Charlie Medellin [facility] (A1C) [facility] RETICULOCYTES AUTOMATED 2020-08-24 10:47:00 Charlie Medellin [facility] POCT GLUCOSE (AUTOMATED) 2020-08-24 02:54:00 Jake Loco [facility] RESPIRATORY PANEL BY PCR 2020-08-24 02:48:00 Nicolasa Nuñez [facility] HAPTOGLOBIN, SERUM 2020-08-24 02:46:00 Charlie Medellin [facility] PROCALCITONIN 2020-08-24 02:46:00 [facility] [place] POCT GLUCOSE (AUTOMATED) 2020-08-24 02:18:00 Jake Loco [facility] US RETROPERITONEAL LIMITED 2020-08-24 00:37:37 [facility]OS[facility] 2020-08-23 23:12:00 [facility] [facility] [place] HEPATIC FUNCTION PANEL 2020-08-23 23:12:00 Nicolasa Nuñez [facility] ([id number]) (ALB,T.PRO,BILI Medical Branch T,BU/BC,ALT,AST,ALK PHOS) IRON PANEL 2020-08-23 23:12:00 [facility] URINALYSIS 2020-08-23 23:12:00 [facility] [facility] [place] PROTEIN CREAT RATIO URINE 2020-08-23 23:12:00 Nicolasa Nuñez [facility] Branch SODIUM, URINE RANDOM 2020-08-23 23:12:00 Nicolasa Nuñez [facility] POCT GLUCOSE (AUTOMATED) 2020-08-23 22:41:00 Jake Loco [facility] COVID-19 (ID NOW RAPID 2020-08-23 21:53:00 [facility] LAB ONLY COVID 2020-08-23 21:53:00 [facility] POCT GLUCOSE (AUTOMATED) 2020-08-23 21:03:00 Doctor Unassigned, [facility] [place] [facility] Medical Branch PHOSPHORUS 2020-08-23 20:35:00 [facility] FERRITIN SERUM 2020-08-23 20:35:00 [facility] [facility] [place] TROPONIN I 2020-08-23 20:35:00 Kwadwo Mago [facility] BASIC METABOLIC PANEL (NA, 2020-08-23 20:35:00 Mago Burkett [facility] K, CL, CO2, GLUCOSE, BUN, Medica l Branch CREATININE, CA) DIFF CONSULT 2020-08-23 20:35:00 [facility] CBC WITH DIFF 2020-08-23 20:35:00 Kwadwo [facility] N-TERMINAL PRO-BNP 2020-08-23 20:35:00 Nicolasa Nuñez [facility] AC PANEL 20 + LACTIC ACID 2020-08-23 20:30:00 Mago [facility] XR CHEST 1 VW 2020-08-23 20:05:00 Kwadwo Mago [facility] Encounters Start End Encounter Admission Attending Care Care Encounter Source Date/Time Date/Time Type Type Clinicians Facility Department ID 2020-08-29 2020-08-29 Transition Kendall Ahmadi [id number] Univers 00:00:00 00:00:00 of Care Marian Tafoya [id number] i ty of [place] [id number] [place] [id number] [facility] kallie 403 Branch 2020-08-29 2020-08-29 Telephone Savnanah [facility] [id number] [facility] 00:00:00 00:00:00 Nicolasa VILLANUEVA 350.1.13.10 it y of [place] [facility] [phone] Dc dical [address] 2020-08-23 2020-08-28 Hospital Jennie Ocasio [id number] Univers 13:44:00 17:10:00 Encounter Jake Loco 350.1.13.10 [facility] 4.2.7.2.[address] [place] [address] [phone] [place] [id number] Branch 2020-08-23 2020-08-23 Emergency X BANIPAL [facility] ERT [id number] 51 Univers 13:44:00 13:44:00 MORRICAL, [facility] Test Description Test Time Test Comments Results Result Comments Source POCT GLUCOSE (AUTOMATED) 2020-08-28 21:32:00 Test Item Value Reference Range Interpretation Comme nts POCT GLU (test code = 6602546176) 125 mg/dL 70-110 H Lab Interpretation (test code = 56443-7) Abnormal [facility] GLUCOSE (AUTOMATED)2020-08-28 18:01:00 Test Item Value Reference Range Interpretation Comments POCT GLU (test code = 8225096973) 216 mg/dL 70-110 H Lab Interpretation (test code = Abnormal 19139-2) [facility] GLUCOSE (AUTOMATED)2020-08-28 14:54:00 Test Item Value Reference Range Interpretation Comments POCT GLU (test code = 2801109250) 164 mg/dL 70-110 H Lab Interpretation (test code = Abnormal 45388-5) [facility] (NA, K, CL, CO2, GLUCOSE, BUN, CREATININE, CA)2020-08-28 11:56:00 Test Item Value Reference Range Interpretation Comments NA (test code = 140 mmol/L 135-145 6677607875) K (test code = 5.1 mmol/L 3.5-5 H 9277271909) CL (test code = 114 mmol/L 98-108 H 3620161171) CO2 TOTAL (test code = 17 mmol/L 23-31 L 5038780293) AGAP (test code = 2-16 3909126507) BUN (test code = 39 mg/dL 7-23 H 2354461447) GLUCOSE (test code = 173 mg/dL 70-110 H 4550911832) CREATININE (test code = 4.09 mg/dL 0.6-1.25 H 0987113220) CALCIUM (test code = 8.4 mg/dL 8.6-10.6 L 6564294702) eGFR Calculation mL/min/1.73m2 (Non-) (test code = 5087228914) eGFR Calculation mL/min/1.73m2 () (test code = 4216157351) DAKSHA (test code = DAKSHA) Association of Glomerular Filtration Rate (GFR) and Staging of Kidney Disease* + --+ --+ ------+| GFR (mL/min/1.73 m2) ?| With Kidney Damage ?| ?Without Kidney Damage+ --------+ --------+ +| ?>90 ?| ?Stage one ?| ? Normal ?+ ---+ ---+ -------+| ?60-89 ?| ?Stage two ?| ? Decreased GFR ? + --+ --+ ------+| ?30-59 ?| ?Stage three ?| ? Stage three ? + --+ --+ ------+| ?15-29 ?| ?Stage four ? | ? Stage four ?+ ---+ ---+ -------+| ?<15 (or dialysis) ? ?| ?Stage five ? | ? Stage five ?+ ---+ ---+ -------+ *Each stage assumes the associated GFR level has been in effect for at least three months. ?Stages 1 to 5, with or without kidney disease, indicate chronic kidney disease. Notes: Determination of stages one and two (with eGFR >59mL/min/1.73 m2) requires estimation of kidney damage for at least three months as defined by structural or functional abnormalities of the kidney, manifested by either:Pathological abnormalities or Markers of kidney damage (including abnormalities in the composition of the blood or urine or abnormalities in imaging tests). Lab Interpretation Abnormal (test code = 16408-5) [facility] WITH [id number] 11:29:00 Test Item Value Reference Range Interpretation Comments WBC (test code = See_Comment H [Automated 2941-2) message] The system which generated this result transmit charisse reference range : 4.20 - 10.70 10*3/?L. The reference range was not used to interpret this result as normal/abnormal . RBC (test code = See_Comment L [Automated 319-8) message] The system which generated this result transmit charisse reference range : 4.26 - 5.52 10*6/?L. The reference range was not used to interpret this result as normal/abnormal . HGB (test code = 8.5 g/dL 12.2-16.4 L 718-7) HCT (test code = 27.8 % 38.4-49.3 L 4544-3) MCV (test code = 79.7 fL 81.7-95.6 L 787-2) MCH (test code = 24.4 pg 26.1-32.7 L 785-6) MCHC (test code = 30.6 g/dL 31.2-35 L 786-4) RDW-SD (test code = 45.0 fL 38.5-51.6 33016-1) RDW-CV (test code = 15.7 % 12.1-15.4 H 788-0) PLT (test code = See_Comment H [Automated 777-3) message] The system which generated this result transmit charisse reference range : 150 - 328 10*3/ ?L. The reference range was not u sed to interpret th is result as normal/abnormal . MPV (test code = 8.6 fL 9.8-13 L 20697-0) NRBC/100 WBC (test See_Comment [Automat ed code = 5375036678) message] The system which generated this result transmit charisse reference range : 0.0 - 10.0 /100 WBCs. The reference range was not used to interpret this result as normal/abnormal . NRBC x10^3 (test code See_Comment [Auto mated = 1334868803) message] The system which generated this result transmit charisse reference range : 10*3/?L. The reference range was not used to interpret this result as normal/abnormal . GRAN MAT (NEUT) % 70.9 % (test code = 770-8) IMM GRAN % (test code 1.20 % = 9065569106) LYMPH % (test code = 16.7 % 736-9) MONO % (test code = 5.7 % 5905-5) EOS % (test code = 4.9 % 713-8) BASO % (test code = 0.6 % 706-2) GRAN MAT x10^3(ANC) 11.04 10*3/uL 1.99-6.95 H (test code = 6923599847) IMM GRAN x10^3 (test 0.19 10*3/uL 0-0.06 H code = 7685157341) LYMPH x10^3 (test code 2.60 10*3/uL 1.09-3.23 = 731-0) MONO x10^3 (test code 0.88 10*3/uL 0.36-1.02 = 742-7) EOS x10^3 (test code = 0.76 10*3/uL 0.06-0.53 H 711-2) BASO x10^3 (test code 0.10 10*3/uL 0.01-0.09 H = 704-7) Lab Interpretation Abnormal (test code = 16608-1) [facility] GLUCOSE (AUTOMATED)2020-08-28 10:16:00 Test Item Value Reference Range Interpretation Comments POCT GLU (test code = 6656522594) 176 mg/dL 70-110 H Lab Interpretation (test code = Abnormal 18371-7) [facility] GLUCOSE (AUTOMATED)2020-08-28 05:47:00 Test Item Value Reference Range Interpretation Comments POCT GLU (test code = 9108815186) 186 mg/dL 70-110 H Lab Interpretation (test code = Abnormal 04334-6) [facility] [id number] 04:57:00COVID DMT InterpretationInterpretation/Recommendations: Molecular NAAT Tests for Active Infection with the SARS-CoV-2 Virus: The patient has currently tested negative for the SARS-CoV-2 virus that causes COVID-19 illness. This most likely indicates that the patient does not have an active infection with the SARS-CoV-2 virus. However, infection is not completely ruled out as the false negative rate for molecular NAAT testing using a nasopharyngeal sample can be up to 30%, mostly dependent on the timing of sample collection in relation to illness onset and any deficiencies in sampling techniques. If the patient has symptoms concerning for COVID-19 illness, a repeat NAAT test (PCR, Rapid ID Now, etc.) should be performed, at which time the SARS-CoV-2 virus - if present - may have reached a detectable viral load (usually peaking by the end of the first week of symptoms). Tests for IgM and/or IgG Antibodies to the SARS-CoV-2 Virus: If the patient develops COVID-19 illness in the future, testing for IgM and IgG antibodies approximately 3 weeks after illness onset will likely indicate if the patient has produced antibodies to the SARS-CoV-2 virus. However, some patients may take longer to develop detectable antibodies, while some patients who were infected with SARS-CoV-2 may never develop antibodies. While antibodies to SARS-CoV-2 may provide some degree of immunity, at this time the strength and duration of the antibody response is unknown. ? ? Interpretation Result Comments:These interpretation comments are based upon all COVID-19 testing the patient has had at [facility], including molecular NAAT testing (more commonly knownas PCR testing and Rapid ID Now testing) and antibody testing. It does not take into account any testing that a patient has had outside of the [facility] medical record. [facility] LABORATORY SERVICESCOVID ResultsS ARS-CoV-2 Rapid ID NOW (no units) ? ? Date ? Value ? 08/23/2020 ? Not Detected ? [facility] LABORATORY [facility] GLUCOSE (AUTOMATED)2020-08-28 02:04:00 Test Item Value Reference Range Interpretation Comments POCT GLU (test code = 9494280442) 215 mg/dL 70-110 H Lab Interpretation (test code = Abnormal 00795-6) [facility] GLUCOSE (AUTOMATED)2020-08-27 17:47:00 Test Item Value Reference Range Interpretation Comments POCT GLU (test code = 1894097407) 169 mg/dL 70-110 H Lab Interpretation (test code = Abnormal 91117-4) [facility] GLUCOSE (AUTOMATED)2020-08-27 14:49:00 Test Item Value Reference Range Interpretation Comments POCT GLU (test code = 5062443011) 134 mg/dL 70-110 H Lab Interpretation (test code = Abnormal 68111-0) [facility] METABOLIC PANEL (NA, K, CL, CO2, GLUCOSE, BUN, CREATININE, CA)2020-08-27 11:53:00 Test Item Value Reference Range Interpretation Comments NA (test code = 140 mmol/L 135-145 0634201867) K (test code = 4.9 mmol/L 3.5-5 2506602676) CL (test code = 116 mmol/L 98-108 H 4833929288) CO2 TOTAL (test code = 16 mmol/L 23-31 L 1881343117) AGAP (test code = 2-16 2697904071) BUN (test code = 41 mg/dL 7-23 H 6759543379) GLUCOSE (test code = 157 mg/dL 70-110 H 7845400930) CREATININE (test code = 4.64 mg/dL 0.6-1.25 H 8394048760) CALCIUM (test code = 8.2 mg/dL 8.6-10.6 L 0967444605) eGFR Calculation mL/min/1.73m2 (Non-) (test code = 5813265864) eGFR Calculation mL/min/1.73m2 () (test code = 8517378352) DAKSHA (test code = DAKSHA) Association of Glomerular Filtration Rate (GFR) and Staging of Kidney Disease* + --+ --+ ------+| GFR (mL/min/1.73 m2) ?| With Kidney Damage ?| ?Without Kidney Damage+ --------+ --------+ +| ?>90 ?| ?Stage one ?| ? Normal ?+ ---+ ---+ -------+| ?60-89 ?| ?Stage two ?| ? Decreased GFR ? + --+ --+ ------+| ?30-59 ?| ?Stage three ?| ? Stage three ? + --+ --+ ------+| ?15-29 ?| ?Stage four ? | ? Stage four ?+ ---+ ---+ -------+| ?<15 (or dialysis) ? ?| ?Stage five ? | ? Stage five ?+ ---+ ---+ -------+ *Each stage assumes the associated GFR level has been in effect for at least three months. ?Stages 1 to 5, with or without kidney disease, indicate chronic kidney disease. Notes: Determination of stages one and two (with eGFR >59mL/min/1.73 m2) requires estimation of kidney damage for at least three months as defined by structural or functional abnormalities of the kidney, manifested by either:Pathological abnormalities or Markers of kidney damage (including abnormalities in the composition of the blood or urine or abnormalities in imaging tests). Lab Interpretation Abnormal (test code = 37358-7) [facility] WITH [id number] 11:22:00 Test Item Value Reference Range Interpretation Comments WBC (test code = See_Comment H [Automated 6690-2) message] The sy stem which generated this result transmitted reference range : 4.20 - 10.70 10*3/?L. The reference range was not used to interpret this result as normal/abnormal . RBC (test code = See_Comment L [Automated 789-8) message] The sy stem which generated this result transmitted reference range : 4.26 - 5.52 10*6/?L. The reference range was not used to interpret this result as normal/abnormal . HGB (test code = 8.1 g/dL 12.2-16.4 L 718-7) HCT (test code = 26.8 % 38.4-49.3 L 4544-3) MCV (test code = 80.2 fL 81.7-95.6 L 787-2) MCH (test code = 24.3 pg 26.1-32.7 L 785-6) MCHC (test code = 30.2 g/dL 31.2-35 L 786-4) RDW-SD (test code = 46.0 fL 38.5-51.6 81784-2) RDW-CV (test code = 15.7 % 12.1-15.4 H 788-0) PLT (test code = See_Comment H [Automated 777-3) message] The sy stem which generated this result transmitted reference range : 150 - 328 10*3/ ?L. The reference r elgin was not used to interpret this result as normal/abnormal . MPV (test code = 8.9 fL 9.8-13 L 07300-8) NRBC/100 WBC (test See_Comment [Automat ed code = 9464109339) message] The system which generated this result transmitted reference range : 0.0 - 10.0 /100 WBCs. The refer ence range was not u sed to interpret th is result as normal/abnormal . NRBC x10^3 (test code <0.01 See_Comment [Auto mated = 1908800244) message] The s ystem which generated this result transmitted reference range : 10*3/?L. The reference range was not used to interpret this result as normal/abnormal . GRAN MAT (NEUT) % 69.1 % (test code = 770-8) IMM GRAN % (test code 1.10 % = 5700888793) LYMPH % (test code = 17.5 % 736-9) MONO % (test code = 5.9 % 5905-5) EOS % (test code = 5.8 % 713-8) BASO % (test code = 0.6 % 706-2) GRAN MAT x10^3(ANC) 9.87 10*3/uL 1.99-6.95 H (test code = 0848103013) IMM GRAN x10^3 (test 0.16 10*3/uL 0-0.06 H code = 2090918271) LYMPH x10^3 (test code 2.51 10*3/uL 1.09-3.23 = 731-0) MONO x10^3 (test code 0.85 10*3/uL 0.36-1.02 = 742-7) EOS x10^3 (test code = 0.83 10*3/uL 0.06-0.53 H 711-2) BASO x10^3 (test code 0.09 10*3/uL 0.01-0.09 = 704-7) Lab Interpretation Abnormal (test code = 17030-8) [facility] GLUCOSE (AUTOMATED)2020-08-27 09:57:00 Test Item Value Reference Range Interpretation Comments POCT GLU (test code = 8437894433) 170 mg/dL 70-110 H Lab Interpretation (test code = Abnormal 51242-3) [facility] GLUCOSE (AUTOMATED)2020-08-27 05:37:00 Test Item Value Reference Range Interpretation Comments POCT GLU (test code = 4882193625) 171 mg/dL 70-110 H Lab Interpretation (test code = Abnormal 51905-5) [facility] GLUCOSE (AUTOMATED)2020-08-27 02:05:00 Test Item Value Reference Range Interpretation Comments POCT GLU (test code = 6397977782) 184 mg/dL 70-110 H Lab Interpretation (test code = Abnormal 58903-1) [facility] GLUCOSE (AUTOMATED)2020-08-26 23:29:00 Test Item Value Reference Range Interpretation Comments POCT GLU (test code = 6545468475) 158 mg/dL 70-110 H Lab Interpretation (test code = Abnormal 52731-9) [facility] GLUCOSE (AUTOMATED)2020-08-26 18:28:00 Test Item Value Reference Range Interpretation Comments POCT GLU (test code = 8250316364) 210 mg/dL 70-110 H Lab Interpretation (test code = Abnormal 65684-9) [facility] GLUCOSE (AUTOMATED)2020-08-26 14:36:00 Test Item Value Reference Range Interpretation Comments POCT GLU (test code = 5710387360) 201 mg/dL 70-110 H Lab Interpretation (test code = Abnormal 97113-2) [facility] METABOLIC PANEL (NA, K, CL, CO2, GLUCOSE, BUN, CREATININE, CA)2020-08-26 11:58:00 Test Item Value Reference Range Interpretation Comments NA (test code = 139 mmol/L 135-145 8416367482) K (test code = 4.7 mmol/L 3.5-5 4110280752) CL (test code = 117 mmol/L 98-108 H 0647029579) CO2 TOTAL (test code = 16 mmol/L 23-31 L 5603643442) AGAP (test code = 2-16 9276991784) BUN (test code = 41 mg/dL 7-23 H 9192970762) GLUCOSE (test code = 170 mg/dL 70-110 H 5736754667) CREATININE (test code = 5.23 mg/dL 0.6-1.25 H 6790882088) CALCIUM (test code = 7.7 mg/dL 8.6-10.6 L 0537432312) eGFR Calculation mL/min/1.73m2 (Non-) (test code = 0406766275) eGFR Calculation mL/min/1.73m2 () (test code = 6987765038) DAKSHA (test code = DAKSHA) Association of Glomerular Filtration Rate (GFR) and Staging of Kidney Disease* + --+ --+ ------+| GFR (mL/min/1.73 m2) ?| With Kidney Damage ?| ?Without Kidney Damage+ --------+ --------+ +| ?>90 ?| ?Stage one ?| ? Normal ?+ ---+ ---+ -------+| ?60-89 ?| ?Stage two ?| ? Decreased GFR ? + --+ --+ ------+| ?30-59 ?| ?Stage three ?| ? Stage three ? + --+ --+ ------+| ?15-29 ?| ?Stage four ? | ? Stage four ?+ ---+ ---+ -------+| ?<15 (or dialysis) ? ?| ?Stage five ? | ? Stage five ?+ ---+ ---+ -------+ *Each stage assumes the associated GFR level has been in effect for at least three months. ?Stages 1 to 5, with or without kidney disease, indicate chronic kidney disease. Notes: Determination of stages one and two (with eGFR >59mL/min/1.73 m2) requires estimation of kidney damage for at least three months as defined by structural or functional abnormalities of the kidney, manifested by either:Pathological abnormalities or Markers of kidney damage (including abnormalities in the composition of the blood or urine or abnormalities in imaging tests). Lab Interpretation Abnormal (test code = 07627-0) [facility] WITH [id number] 11:27:00 Test Item Value Reference Range Interpretation Comments WBC (test code = See_Comment H [Automated 9090-2) message] The system which generated this result transmit charisse reference range : 4.20 - 10.70 10*3/?L. The reference range was not used to interpret this result as normal/abnormal . RBC (test code = See_Comment L [Automated 209-8) message] The system which generated this result transmit charisse reference range : 4.26 - 5.52 10*6/?L. The reference range was not used to interpret this result as normal/abnormal . HGB (test code = 7.8 g/dL 12.2-16.4 L 718-7) HCT (test code = 25.1 % 38.4-49.3 L 4544-3) MCV (test code = 79.9 fL 81.7-95.6 L 787-2) MCH (test code = 24.8 pg 26.1-32.7 L 785-6) MCHC (test code = 31.1 g/dL 31.2-35 L 786-4) RDW-SD (test code = 46.1 fL 38.5-51.6 35315-4) RDW-CV (test code = 15.9 % 12.1-15.4 H 788-0) PLT (test code = See_Comment H [Automated 777-3) message] The system which generated this result transmit charisse reference range : 150 - 328 10*3/ ?L. The reference range was not u sed to interpret th is result as normal/abnormal . MPV (test code = 9.1 fL 9.8-13 L 02387-9) NRBC/100 WBC (test See_Comment [Automat ed code = 5149362276) message] The system which generated this result transmit charisse reference range : 0.0 - 10.0 /100 WBCs. The reference range was not used to interpret this result as normal/abnormal . NRBC x10^3 (test code <0.01 See_Comment [Auto mated = 2440053148) message] The system which generated this result transmit charisse reference range : 10*3/?L. The reference range was not used to interpret this result as normal/abnormal . GRAN MAT (NEUT) % 71.1 % (test code = 770-8) IMM GRAN % (test code 0.80 % = 3588124704) LYMPH % (test code = 15.7 % 736-9) MONO % (test code = 6.1 % 5905-5) EOS % (test code = 5.9 % 713-8) BASO % (test code = 0.4 % 706-2) GRAN MAT x10^3(ANC) 10.21 10*3/uL 1.99-6.95 H (test code = 5928585487) IMM GRAN x10^3 (test 0.11 10*3/uL 0-0.06 H code = 0230371626) LYMPH x10^3 (test code 2.26 10*3/uL 1.09-3.23 = 731-0) MONO x10^3 (test code 0.87 10*3/uL 0.36-1.02 = 742-7) EOS x10^3 (test code = 0.84 10*3/uL 0.06-0.53 H 711-2) BASO x10^3 (test code 0.06 10*3/uL 0.01-0.09 = 704-7) Lab Interpretation Abnormal (test code = 65390-8) [facility] GLUCOSE (AUTOMATED)2020-08-26 10:04:00 Test Item Value Reference Range Interpretation Comments POCT GLU (test code = 4428233957) 181 mg/dL 70-110 H Lab Interpretation (test code = Abnormal 39127-7) [facility] GLUCOSE (AUTOMATED)2020-08-26 05:44:00 Test Item Value Reference Range Interpretation Comments POCT GLU (test code = 1550984293) 189 mg/dL 70-110 H Lab Interpretation (test code = Abnormal 86194-9) [facility] GLUCOSE (AUTOMATED)2020-08-26 01:57:00 Test Item Value Reference Range Interpretation Comments POCT GLU (test code = 2355431699) 204 mg/dL 70-110 H Lab Interpretation (test code = Abnormal 44866-0) [facility] GLUCOSE (AUTOMATED)2020-08-25 23:10:00 Test Item Value Reference Range Interpretation Comments POCT GLU (test code = 6937043044) 176 mg/dL 70-110 H Lab Interpretation (test code = Abnormal 74368-6) [facility] GLUCOSE (AUTOMATED)2020-08-25 19:26:00 Test Item Value Reference Range Interpretation Comments POCT GLU (test code = 2020932203) 177 mg/dL 70-110 H Lab Interpretation (test code = Abnormal 73868-9) [facility] [id number] 18:27:00 Test Item Value Reference Interpretation Comments Range CREAT U (test code 92.3 mg/dL = 2431500054) MICROALB U (test 1350 ug/mL 0-45 H code = 64064-6) MICROAL/CR (test See_Comment H [Automated code = 9318-7) message] The system which generated this result transmitted reference range: 0 - 30 mg/g of creatinine. The reference range was not used to interpret this result as normal/abnormal . DAKSHA (test code = Normal: <30 mg/g DAKSHA) creatinineMicroalbuminu lanette: 30 - 299 mg/g creatinineClinical albuminuria: > 300 mg/g creatinine Lab Interpretation Abnormal (test code = 53160-8) [facility]2020-08-25 14:39:00 Test Item Value Reference Range Interpretation Comments POCT GLU (test code = 9084857919) 135 mg/dL 70-110 H Lab Interpretation (test code = Abnormal 66193-7) [facility] 14:20:00 Test Item Value Reference Range Interpretation Comments MAGNESIUM (test code = 7934334992) 1.9 mg/dL 1.7-2.4 Lab Interpretation (test code = Normal 68498-0) [facility] METABOLIC PANEL (NA, K, CL, CO2, GLUCOSE, BUN, CREATININE, CA)2020-08-25 12:54:00 Test Item Value Reference Range Interpretation Comments NA (test code = 139 mmol/L 135-145 6027454837) K (test code = 5.0 mmol/L 3.5-5 5965925707) CL (test code = 114 mmol/L 98-108 H 3337911614) CO2 TOTAL (test code = 17 mmol/L 23-31 L 7975950386) AGAP (test code = 2-16 3321195952) BUN (test code = 43 mg/dL 7-23 H 8075319724) GLUCOSE (test code = 132 mg/dL 70-110 H 8948690846) CREATININE (test code = 6.25 mg/dL 0.6-1.25 H 8931761775) CALCIUM (test code = 7.7 mg/dL 8.6-10.6 L 7985125633) eGFR Calculation mL/min/1.73m2 (Non-) (test code = 5062028375) eGFR Calculation mL/min/1.73m2 () (test code = 4035748985) DAKSHA (test code = DAKSHA) Association of Glomerular Filtration Rate (GFR) and Staging of Kidney Disease* + --+ --+ ------+| GFR (mL/min/1.73 m2) ?| With Kidney Damage ?| ?Without Kidney Damage+ --------+ --------+ +| ?>90 ?| ?Stage one ?| ? Normal ?+ ---+ ---+ -------+| ?60-89 ?| ?Stage two ?| ? Decreased GFR ? + --+ --+ ------+| ?30-59 ?| ?Stage three ?| ? Stage three ? + --+ --+ ------+| ?15-29 ?| ?Stage four ? | ? Stage four ?+ ---+ ---+ -------+| ?<15 (or dialysis) ? ?| ?Stage five ? | ? Stage five ?+ ---+ ---+ -------+ *Each stage assumes the associated GFR level has been in effect for at least three months. ?Stages 1 to 5, with or without kidney disease, indicate chronic kidney disease. Notes: Determination of stages one and two (with eGFR >59mL/min/1.73 m2) requires estimation of kidney damage for at least three months as defined by structural or functional abnormalities of the kidney, manifested by either:Pathological abnormalities or Markers of kidney damage (including abnormalities in the composition of the blood or urine or abnormalities in imaging tests). Lab Interpretation Abnormal (test code = 51571-8) [facility] WITH [id number] 12:22:00 Test Item Value Reference Range Interpretation Comments WBC (test code = See_Comment H [Automated 7490-2) message] The system which generated this result transmit charisse reference range : 4.20 - 10.70 10*3/?L. The reference range was not used to interpret this result as normal/abnormal . RBC (test code = See_Comment L [Automated 659-8) message] The system which generated this result transmit charisse reference range : 4.26 - 5.52 10*6/?L. The reference range was not used to interpret this result as normal/abnormal . HGB (test code = 7.6 g/dL 12.2-16.4 L 718-7) HCT (test code = 24.9 % 38.4-49.3 L 4544-3) MCV (test code = 79.6 fL 81.7-95.6 L 787-2) MCH (test code = 24.3 pg 26.1-32.7 L 785-6) MCHC (test code = 30.5 g/dL 31.2-35 L 786-4) RDW-SD (test code = 47.4 fL 38.5-51.6 19740-1) RDW-CV (test code = 16.2 % 12.1-15.4 H 788-0) PLT (test code = See_Comment H [Automated 777-3) message] The system which generated this result transmit charisse reference range : 150 - 328 10*3/ ?L. The reference range was not u sed to interpret th is result as normal/abnormal . MPV (test code = 8.8 fL 9.8-13 L 91304-9) NRBC/100 WBC (test See_Comment [Automat ed code = 5926444471) message] The system which generated this result transmit charisse reference range : 0.0 - 10.0 /100 WBCs. The reference range was not used to interpret this result as normal/abnormal . NRBC x10^3 (test code <0.01 See_Comment [Auto mated = 5470116240) message] The system which generated this result transmit charisse reference range : 10*3/?L. The reference range was not used to interpret this result as normal/abnormal . GRAN MAT (NEUT) % 73.3 % (test code = 770-8) IMM GRAN % (test code 0.40 % = 9236606707) LYMPH % (test code = 16.1 % 736-9) MONO % (test code = 5.3 % 5905-5) EOS % (test code = 4.3 % 713-8) BASO % (test code = 0.6 % 706-2) GRAN MAT x10^3(ANC) 11.11 10*3/uL 1.99-6.95 H (test code = 6770559762) IMM GRAN x10^3 (test 0.06 10*3/uL 0-0.06 code = 4786438169) LYMPH x10^3 (test code 2.44 10*3/uL 1.09-3.23 = 731-0) MONO x10^3 (test code 0.81 10*3/uL 0.36-1.02 = 742-7) EOS x10^3 (test code = 0.65 10*3/uL 0.06-0.53 H 711-2) BASO x10^3 (test code 0.09 10*3/uL 0.01-0.09 = 704-7) Lab Interpretation Abnormal (test code = 62266-1) [facility] GLUCOSE (AUTOMATED)2020-08-25 09:40:00 Test Item Value Reference Range Interpretation Comments POCT GLU (test code = 9504094843) 131 mg/dL 70-110 H Lab Interpretation (test code = Abnormal 08595-3) [facility] GLUCOSE (AUTOMATED)2020-08-25 05:51:00 Test Item Value Reference Range Interpretation Comments POCT GLU (test code = 7598528124) 134 mg/dL 70-110 H Lab Interpretation (test code = Abnormal 72110-6) [facility] GLUCOSE (AUTOMATED)2020-08-25 03:27:00 Test Item Value Reference Range Interpretation Comments POCT GLU (test code = 1943462746) 140 mg/dL 70-110 H Lab Interpretation (test code = Abnormal 25412-8) [facility] [id number] 00:55:00 Test Item Value Reference Range Interpretation Comments PTH-INTACT (test code = 489.4 pg/mL 12-88 H 0780854301) PTH-CA Interpretation Furthe r clinical (test code = 3764311721) tiarra a needed for interpretation. CALCIUM (test code = 7.5 mg/dL 8.6-10.6 L 7735291243) Lab Interpretation (test Abnormal code = 65275-2) [facility] WestVITAMIN D, [id number] 23:44:00 Test Item Value Reference Range Interpretation Comments VIT D 25OH (test code = <13 25-80 L 43848-4) DAKSHA (test code = DAKSHA) Deficiency: <20 ng/mLInsufficiency: 20-24 ng/mLOptimal: 25-80 ng/mL Lab Interpretation (test Abnormal code = 97674-2) [facility] WestDAT [id number] 22:45:39 Test Item Value Reference Range Interpretation Comments TIARRA POLY (test code Negative Performe d at [facility] = 1610) Laboratory Serv [facility] Blood [address] [place], [place] [address] Free: [phone] A No. [id number] [facility] GLUCOSE (AUTOMATED)2020-08-24 22:13:00 Test Item Value Reference Range Interpretation Comments POCT GLU (test code = 8128023806) 130 mg/dL 70-110 H Lab Interpretation (test code = Abnormal 86833-5) [facility] WestLACTATE [id number] 21:39:00 Test Item Value Reference Range Interpretation Comments LDH (test code = 0436081639) 540 U/L 300-600 Lab Interpretation (test code = Normal 50611-7) [facility] WestUREA NITROGEN, URINE [id number] 20:56:00 Test Item Value Reference Range Interpretation Comments UREA N UR (test code = 0300273615) 336 mg/dL [facility] WestHAPTOGLOBIN, [id number] 19:32:00 Test Item Value Reference Range Interpretation Comments HAPTOGLOB (test code = 9430468053) 450 mg/dL 16-200 H Lab Interpretation (test code = Abnormal 49486-7) [facility] WestRETICULOCYTES [id number] 19:00:00 Test Item Value Reference Range Interpretation Comments RETIC Count Automated 0.80 % 0.59-2.24 (test code = 0103890819) RETIC Absolute Count See_Comment L [Autom ated message] (test code = 2403649494) The system which generated this result transmitted ref erence range: 0.0260 - 0.1170 10*6/?L. The reference range was not used to int erpret this result as normal/abnormal . IRF % (test code = 13.30 % 2-19.5 4082692512) RETIC-HE (test code = 23.2 pg 27.3-36.4 L 1009370015) Lab Interpretation (test Abnormal code = 40364-2) [facility] GLUCOSE (AUTOMATED)2020-08-24 18:35:00 Test Item Value Reference Range Interpretation Comments POCT GLU (test code = 2993426098) 110 mg/dL 70-110 Lab Interpretation (test code = Normal 65111-1) [facility] WestDIFF CONSULT [id number] 17:49:00 LEUKOCYTOSIS WITH ABSOLUTE TOXIC NEUTROPHILIA INCLUDING OCCASIONAL VACUOLATED NEUTROPHILS, TOXIC LEFT SHIFT, ABSOLUTE REACTIVE MONOCYTOSIS AND REACTIVE LYMPHOCYTES SUGGESTIVE OF SYSTEMIC INFECTION/INFLAMMATION. MICROCYTIC HYPOCHROMICC ANEMIA WITH POLYCHROMASIA AND ANISOPOIKILOCYTOSIS INCLUDING LALA CELLS, RARE TEARDROP CELLS, RARE ACANTHOCYTES, OCCASIONAL TARGET CELLS AND OCCASIONAL SPHEROCYTES SUGGESTIVE OF COMBINED ANEMIA OF CHRONIC KIDNEY DISEASE, CHRONIC DISEASE AND IRON DEFICIENCY. ROULEAUX FORMATION NOTED. EXCLUDE CONCURRENT BLOOD LOSS/HEMOLYSIS. SUGGEST HEMOLYSIS LABS INCLUDING HAPTOGLOBIN, L DH, RETICULOCYTE COUNT, TIARRA AND BILIRUBIN LEVELS WELL SEARCHING FOR POSSIBLE ANATOMICAL SOURCES OF BLOOD LOSS. THROMBOCYTOSIS, FAVOR REACTIVE. [facility] GLUCOSE (AUTOMATED)2020-08-24 16:32:00 Test Item Value Reference Range Interpretation Comments POCT GLU (test code = 6637170257) 80 mg/dL 70-110 Lab Interpretation (test code = Normal 05452-9) [facility] WestPROTEIN CREAT RATIO URINE [id number] 15:52:00 Test Item Value Reference Range Interpretation Comments T. PROT U (test code = 2888-6) 475 mg/dL CREAT U (test code = 2544965658) 134.7 mg/dL Protein/Creatinine Ratio Urine 0.0-2.0 H (test code = 5483336592) Lab Interpretation (test code = Abnormal 66476-5) [facility] GLUCOSE (AUTOMATED)2020-08-24 15:00:00 Test Item Value Reference Range Interpretation Comments POCT GLU (test code = 6851275145) 58 mg/dL 70-110 L Lab Interpretation (test code = Abnormal 77202-7) [facility] WestGLYCOSYLATED HEMOGLOBIN (A1C)2020-08-24 14:01:00 Test Item Value Reference Range Interpretation Comments HGB A1C (test code = 4548-4) 7.1 % 4-6 H Lab Interpretation (test code = Abnormal 68819-9) [facility] GLUCOSE (AUTOMATED)2020-08-24 12:04:00 Test Item Value Reference Range Interpretation Comments POCT GLU (test code = 4824834913) 99 mg/dL 70-110 Lab Interpretation (test code = Normal 03835-2) [facility] with [id number] 11:48:00 Test Item Value Reference Range Interpretation Comments WBC (test code = See_Comment H [Automated 6690-2) message] The system which generated this result transmit charisse reference range : 4.20 - 10.70 10*3/?L. The reference range was not used to interpret this result as normal/abnormal . RBC (test code = See_Comment L [Automated 789-8) message] The system which generated this result transmit charisse reference range : 4.26 - 5.52 10*6/?L. The reference range was not used to interpret this result as normal/abnormal . HGB (test code = 7.6 g/dL 12.2-16.4 L 718-7) HCT (test code = 24.9 % 38.4-49.3 L 4544-3) MCV (test code = 79.8 fL 81.7-95.6 L 787-2) MCH (test code = 24.4 pg 26.1-32.7 L 785-6) MCHC (test code = 30.5 g/dL 31.2-35 L 786-4) RDW-SD (test code = 46.3 fL 38.5-51.6 36128-5) RDW-CV (test code = 15.9 % 12.1-15.4 H 788-0) PLT (test code = See_Comment H [Automated 777-3) message] The system which generated this result transmit charisse reference range : 150 - 328 10*3/ ?L. The reference range was not u sed to interpret th is result as normal/abnormal . MPV (test code = 9.3 fL 9.8-13 L 61500-4) NRBC/100 WBC (test See_Comment [Automat ed code = 9680714243) message] The system which generated this result transmit charisse reference range : 0.0 - 10.0 /100 WBCs. The reference range was not used to interpret this result as normal/abnormal . NRBC x10^3 (test code <0.01 See_Comment [Auto mated = 4040047499) message] The system which generated this result transmit charisse reference range : 10*3/?L. The reference range was not used to interpret this result as normal/abnormal . GRAN MAT (NEUT) % 82.4 % (test code = 770-8) IMM GRAN % (test code 0.40 % = 1881509351) LYMPH % (test code = 9.6 % 736-9) MONO % (test code = 5.7 % 5905-5) EOS % (test code = 1.5 % 713-8) BASO % (test code = 0.4 % 706-2) GRAN MAT x10^3(ANC) 16.11 10*3/uL 1.99-6.95 H (test code = 7735103054) IMM GRAN x10^3 (test 0.07 10*3/uL 0-0.06 H code = 1433741207) LYMPH x10^3 (test code 1.87 10*3/uL 1.09-3.23 = 731-0) MONO x10^3 (test code 1.12 10*3/uL 0.36-1.02 H = 742-7) EOS x10^3 (test code = 0.29 10*3/uL 0.06-0.53 711-2) BASO x10^3 (test code 0.07 10*3/uL 0.01-0.09 = 704-7) Lab Interpretation Abnormal (test code = 70361-0) [facility] Metabolic Panel (NA, K, CL, CO2, GLUCOSE, BUN, CREATININE, CA)2020-08-24 11:28:00 Test Item Value Reference Range Interpretation Comments NA (test code = 140 mmol/L 135-145 8063268519) K (test code = 4.6 mmol/L 3.5-5 0438345513) CL (test code = 116 mmol/L 98-108 H 4948306882) CO2 TOTAL (test code = 14 mmol/L 23-31 L 9713402719) AGAP (test code = 2-16 2609201974) BUN (test code = 46 mg/dL 7-23 H 9353022974) GLUCOSE (test code = 38 mg/dL 70-110 LL 5031237748) CREATININE (test code = 6.44 mg/dL 0.6-1.25 H 1897164241) CALCIUM (test code = 7.5 mg/dL 8.6-10.6 L 9955436470) eGFR Calculation mL/min/1.73m2 (Non-) (test code = 6810186890) eGFR Calculation mL/min/1.73m2 () (test code = 6765684034) DAKSHA (test code = DAKSHA) Association of Glomerular Filtration Rate (GFR) and Staging of Kidney Disease* + --+ --+ ------+| GFR (mL/min/1.73 m2) ?| With Kidney Damage ?| ?Without Kidney Damage+ --------+ --------+ +| ?>90 ?| ?Stage one ?| ? Normal ?+ ---+ ---+ -------+| ?60-89 ?| ?Stage two ?| ? Decreased GFR ? + --+ --+ ------+| ?30-59 ?| ?Stage three ?| ? Stage three ? + --+ --+ ------+| ?15-29 ?| ?Stage four ? | ? Stage four ?+ ---+ ---+ -------+| ?<15 (or dialysis) ? ?| ?Stage five ? | ? Stage five ?+ ---+ ---+ -------+ *Each stage assumes the associated GFR level has been in effect for at least three months. ?Stages 1 to 5, with or without kidney disease, indicate chronic kidney disease. Notes: Determination of stages one and two (with eGFR >59mL/min/1.73 m2) requires estimation of kidney damage for at least three months as defined by structural or functional abnormalities of the kidney, manifested by either:Pathological abnormalities or Markers of kidney damage (including abnormalities in the composition of the blood or urine or abnormalities in imaging tests). Lab Interpretation Abnormal (test code = 62374-8) [facility] WestMagnesium [id number] 11:24:00 Test Item Value Reference Range Interpretation Comments MAGNESIUM (test code = 2768130083) 1.5 mg/dL 1.7-2.4 L Lab Interpretation (test code = Abnormal 18138-0) [facility] WestRESPIRATORY PANEL BY [id number] 07:10:00 Test Item Value Reference Range Interpretation Comments Adenovirus (test code = Negative Negative 60275-2) Coronavirus HKU1 (test Negative Negative code = 26523-5) Coronavirus NL63 (test Negative Negative code = 16668-5) Coronavirus 229E (test Negative Negative code = 24965-6) Coronavirus OC43 (test Negative Negative code = 26830-4) Human Metapneumovirus Negative Negative (test code = 67969-7) Human Negative Negative Rhinovirus/Enterovirus (test code = 89515-0) Influenza A (test code = Negative Negative 24878-2) Influenza B (test code = Negative Negative 82454-4) Parainfluenza Virus 1 Negative Negative (test code = 82069-7) Parainfluenza Virus 2 Negative Negative (test code = 35726-6) Parainfluenza Virus 3 Negative Negative (test code = 28940-6) Parainfluenza Virus 4 Negative Negative (test code = 97897-0) Respiratory Syncytial Negative Negative Virus (test code = 08376-5) Bordetella parapertussis Negative Negative (test code = 06277-6) Bordetella pertussis Negative Negative (test code = 71631-1) Chlamydia pneumoniae Negative Negative (test code = 25333-5) Mycoplasma pneumoniae Negative Negative (test code = 91021-3) DAKSHA (test code = DAKSHA) Negative:A negative result does not rule-out infection. ?This assay does not test for all potential infectious agents. ? Positive:A positive test result does not necessarily indicate the presence of viable organism. ? Lab Interpretation (test Normal code = 21896-4) [facility] WestPROCALCITONIN2021-02-18 04:14:00 Test Item Value Reference Range Interpretation Comments Procalcitonin (test 1.11 ng/mL <0.07 H code = 7192471669) DAKSHA (test code = DAKSHA) INTERPRETATION OF PROCALCITONIN RESULTS IN ADULTS >= 18 YEARS OF AGE Initiation and discontinuation of antibiotics on patients with suspected or confirmed Lower Respiratory Tract Infection in Adults >= 18 years of age. + +-------- --------+ + -----+|Procalcitonin |Interpretation ?|Antibiotic ? ? |Considerations ? |ng/mL ? | ?|recommendation | ? + +-------- --------+ + -----+| <0.1 ? | Bacterial ? ? ?| Strongly ? ? ?| ? | ?| infection very | discouraged ? | Overruling: ? | ?| unlikely ? ? ? | ? | ? Clinically unstable ? ? ? + +-------- --------+ + ? High risk for adverse ? ? | <0.25 ?| Bacterial ? ? ?| Discouraged ? | ? outcome ? | ?| infection ? ? ?| ? | ? SEE IMPORTANT NOTE ?| ?| unlikely ? ? ? | ? | ? + +-------- --------+ + -----+| >=0.25 ? ? ? | Bacterial ? ? ?| Encouraged ? ?| ? | ?| infection ? ? ?| ? | ? | ?| likely ? | ? | Consider treatment failure ?+ +------- ---------+ -+ if levels does not decrease | >0.5 ? | Bacterial ? ? ?| Strongly ? ? ?| appropriately ? | ?| infection very | encouraged ? ?| ? | ?| likely ? | ? | ? + +-------- --------+ + -----+ Discontinuation of antibiotics in high-acuity patients with suspected or confirmed sepsis in Adults >= 18 years of age. + +-------- --------+ + -----+|Procalcitonin |Interpretation ?|Antibiotic ? ? |Considerations ? |ng/mL ? | ?|recommendation | ? + +-------- --------+ + -----+| <0.25 ?| Bacterial ? ? ?| Strongly ? ? ?| ? | ?| infection very | discouraged ? | Overruling: ? | ?| unlikely ? ? ? | ? | ? Clinically unstable ? ? ? + +-------- --------+ + ? High risk for adverse ? ? | <0.5 or drop | Bacterial ? ? ?| Discouraged ? | ? outcome ? | >80% from ? ?| infection ? ? ?| ? | ? SEE IMPORTANT NOTE ?| highest PCT ?| unlikely ? ? ? | ? | ? | level ?| ?| ? | ? + +-------- --------+ + -----+| >=0.5 ?| Bacterial ? ? ?| Encouraged ? ?| ? | ?| infection ? ? ?| ? | ? | ?| likely ? | ? | Consider treatment failure ?+ +------- ---------+ -+ if levels does not decrease | >1.0 ? | Bacterial ? ? ?| Strongly ? ? ?| appropriately ? | ?| infection very | encouraged ? ?| ? | ?| likely ? | ? | ? + +-------- --------+ + -----+ Percentage of drop of Procalcitonin calculation for Discontinuation of antibiotics in high-acuity patients with suspected or confirmed sepsis in Adults >= 18 years of age. ? Procalcitonin highest{}-Procalcitonin current{}Delta Procalcitonin = x100% ? Procalcitonin current {} IMPORTANT NOTE: Procalcitonin may be elevated without bacterial infection by physiologic stress related to trauma, yoo, chronic dialysis, metastatic cancer, surgery in the past seven days, malaria, some fungal infections, and some forms of vasculitis. The interpretation algorithm may not apply to patients with immunosuppression (equivalent of >10 mg of prednisone daily), HIV with CD4 cell count < 350 cells/mm3, active malignancy on systemic chemotherapy, solid organ transplant or hematopoietic stem cell transplantation, or hospital acquired pneumonia. Additionally, some clinical trials of procalcitonin have excluded patients with shock requiring vasopressor use, acute respiratory failure requiring mechanical ventilation, or those with known lung abscess/empyema. For further information please refer to:[email or web address] Lab Interpretation Abnormal (test code = 33377-9) [facility] GLUCOSE (AUTOMATED)2020-08-24 02:55:00 Test Item Value Reference Range Interpretation Comments POCT GLU (test code = 6647520871) 234 mg/dL 70-110 H Lab Interpretation (test code = Abnormal 99192-2) [facility] GLUCOSE (AUTOMATED)2020-08-24 02:24:00 Test Item Value Reference Range Interpretation Comments POCT GLU (test code = 2426021581) 48 mg/dL 70-110 LL Lab Interpretation (test code = Abnormal 43797-0) [facility] RETROPERITONEAL [id number] 01:31:05 Echogenic kidneys that can be seen with chronic medical renal disease. Simple right renal cyst. No hydronephrosis. Preliminary Report Dictated by Resident: Nile Kilgore MD., have reviewed this study and agree withthe above report.US RETROPERITONEAL LIMITED TECHNIQUE: Real-time grayscale and Doppler ultrasound imaging of thekidneys was performed. HISTORY: PASCALE . COMPARISON: None. FINDINGS: RIGHT KIDNEY: A thin-walled anechoic exophytic simple cyst measuresmeasures 2.1 x 1.8 x 2.0 cm. Otherwise, normal size and contour withincreased echogenicity. The right kidneymeasures 10.9 x 5.8 x 5.8 cm. ?Nohydronephrosis or renal stone. LEFT KIDNEY: Normal size and contourwith increased echogenicity. The leftkidney measures 12.7 x 7.2 x 8.0 cm. No hydronephrosis, focal lesion orrenal stone. [facility], Radiant Results Inft User - 08/23/2020 7:32 PM CSTUS RETROPERITONEAL LIMITEDTECHNIQUE: Real-time grayscale and Doppler ultrasound imaging of thekidneys was performed.HISTORY: PASCALE . COMPARISON: None.FINDINGS: RIGHT KIDNEY: A thin-walled anechoic exophytic simple cyst measuresmeasures 2.1 x 1.8 x 2.0 cm. Otherwise, normal size and contour withincreased echogenicity. The right kidney measures 10.9 x 5.8 x 5.8 cm. Nohydronephrosis or renal stone.LEFT KIDNEY: Normal size and contour with increased echogenicity. The leftkidney measures 12.7 x 7.2 x 8.0 cm. No hydronephrosis, focal lesion orrenal stone.IMPRESSIONEchogenic kidneys that can be seen with chronic medical renal disease.Simple right renal cyst.No hydronephrosis.Preliminary Report Dictated by Resident: Terrie Gilbert, Nile Rebollar MD., have reviewed this study and agree withthe above report.[facility] WestFERRITIN [id number] 00:10:00 Test Item Value Reference Range Interpretation Comments FERRITIN (test code = 168.0 ng/mL 18-464 0508822897) DAKSHA (test code = DAKSHA) Biotin has been reported to cause a negative bias, interpret results relative to patient's use of biotin. Lab Interpretation (test Normal code = 77279-5) [facility] WestIRON [id number] 23:49:00 Test Item Value Reference Range Interpretation Comments IRON (test code = <10 50-160 L 1387661957) TIBC (test code = 229 ug/dL 250-410 L 2941051211) % FE SAT (test code = Unable to calculate 0928870909) because, either iron serum, total ir on binding capacit y, or both are less t farah the sensitivity of the analyzer. Lab Interpretation (test Abnormal code = 37953-1) [facility] WestN-TERMINAL [id number] 23:44:00 Test Item Value Reference Range Interpretation Comments NT-proBNP (test code 1100 pg/mL See_Comment H [Autom ated = 4930199820) message] The system which generated this result transmitted reference range : <=125. The reference range was not used to interpret this result as normal/abnormal . DAKSHA (test code = DAKSHA) Biotin has been reported to cause a negative bias, interpret results relative to patient's use of biotin. Lab Interpretation Abnormal (test code = 96753-1) [facility] WestHEPATIC FUNCTION PANEL (82095) (ALB,T.PRO,BILI T,BU/BC,ALT,AST,ALK PHOS)2020-08-23 23:35:00 Test Item Value Reference Range Interpretation Comments TOTAL BILI (test code = 3359752362) 0.5 mg/dL 0.1-1.1 BILI UNCON (test code = 9082807793) 0.2 mg/dL 0.1-1.1 BILI CONJ (test code = 1826359757) 0.0 mg/dL 0-0.3 T PROTEIN (test code = 2846545148) 5.9 g/dL 6.3-8.2 L ALBUMIN (test code = 6524252324) 2.8 g/dL 3.5-5 L ALK PHOS (test code = 4714490091) 83 U/L 34-122 ALTv (test code = 1742-6) 13 U/L 5-50 AST(SGOT) (test code = 4140718822) 23 U/L 13-40 Lab Interpretation (test code = Abnormal 30776-1) [facility] WestPhosphorus [id number] 23:35:00 Test Item Value Reference Range Interpretation Comments PHOSPHORUS (test code = 9454171311) 4.1 mg/dL 2.5-5 Lab Interpretation (test code = Normal 27532-2) [facility] WestURINALYSIS2021-02-17 23:35:00 Test Item Value Reference Range Interpretation Comments APPEARANCE (test code = Cloudy Clear A 8996603102) COLOR (test code = Yellow Yellow 8859459587) PH (test code = 4.8-8.0 2287897047) SP GRAVITY (test code = 1.003-1.030 5741748556) GLU U QUAL (test code = Normal Normal 7923682895) BLOOD (test code = 1+ Negative A 8622074583) KETONES (test code = Negative Negative 2119912166) PROTEIN (test code = 500 mg/dL Negative A 2887-8) UROBILIN (test code = Normal Normal 4140480340) BILIRUBIN (test code = Negative Negative 6457425985) NITRITE (test code = Negative Negative 3709352572) LEUK MARINA (test code = Negative Negative 5296724902) RBC/HPF (test code = <1 See_Comment [Autom ated message] 1615222161) The system [employer] generated this result transmit charisse reference range : 0 - 3 HPF. The refe rence range was not u sed to interpret th is result as normal/abnormal . WBC/HPF (test code = See_Comment [Autom ated message] 3473335058) The system [employer] generated this result transmit charisse reference range : 0 - 5 HPF. The refe rence range was not u sed to interpret th is result as normal/abnormal . BACTERIA (test code = Negative Negative 5944534617) MUCOUS (test code = Slight Negative LPF A 0847006375) AMORPHOUS (test code = Rare HPF 8681413959) Lab Interpretation (test Abnormal code = 15672-3) [facility] WestPHOSPHORUS2021-02-17 23:33:00 Test Item Value Reference Range Interpretation Comments PHOSPHORUS (test code = 2997393427) 4.2 mg/dL 2.5-5 Lab Interpretation (test code = Normal 72679-5) [facility] WestSODIUM, URINE [id number] 23:31:00 Test Item Value Reference Range Interpretation Comments NA URINE (test code = 0186127490) 35 mmol/L [facility] WestCREATININE, URINE [id number] 23:31:00 Test Item Value Reference Range Interpretation Comments CREAT U (test code = 2458830791) 134.7 mg/dL [facility] WestPOCT GLUCOSE (AUTOMATED)2020-08-23 22:41:00 Test Item Value Reference Range Interpretation Comments POCT GLU (test code = 6073626934) 118 mg/dL 70-110 H Lab Interpretation (test code = Abnormal 76804-8) [facility] WestCOVID-19 (ID NOW RAPID TESTING)2020-08-23 22:16:00 Test Item Value Reference Range Interpretation Comments SARS-CoV-2 Rapid ID NOW Not Detected Not Detected (test code = 65304-7) DAKSHA (test code = DAKSHA) ID NOW COVID-19 Assay is an isothermal nucleic acid amplification test intended for the qualitative detection of nucleic acid from SARS-CoV-2 viral RNA in nasopharyngeal (AUTOGRAPHER) specimens. It is used under Emergency Use Authorization (EUA) by FDA. The limit of detection (LOD) of the assay is 125 Genome Equivalents/mL. A positive result is indicative of the presence of SARS-CoV-2 RNA. ?Clinical correlation with patient history and other diagnostic information is necessary to determine patient infection status. A negative (Not Detected) result does not preclude SARS-CoV-2 infection. In patients with clinical symptoms and other tests that are consistent with SARS-CoV-2 infection, negative results should be treated as presumptive negative and a new specimen should be tested with alternative PCR molecular test. Invalid: Please collect a new specimen for repeat patient testing if clinically indicated. Lab Interpretation Normal (test code = 75383-7) [facility] WITH [id number] 21:22:00 Test Item Value Reference Range Interpretation Comments WBC (test code = See_Comment H [Automated 6690-2) message] The system which generated this result transmit charisse reference range : 4.20 - 10.70 10*3/?L. The reference range was not used to interpret this result as normal/abnormal . RBC (test code = See_Comment L [Automated 789-8) message] The system which generated this result transmit charisse reference range : 4.26 - 5.52 10*6/?L. The reference range was not used to interpret this result as normal/abnormal . HGB (test code = 8.6 g/dL 12.2-16.4 L 718-7) HCT (test code = 28.0 % 38.4-49.3 L 4544-3) MCV (test code = 80.0 fL 81.7-95.6 L 787-2) MCH (test code = 24.6 pg 26.1-32.7 L 785-6) MCHC (test code = 30.7 g/dL 31.2-35 L 786-4) RDW-SD (test code = 46.5 fL 38.5-51.6 01555-0) RDW-CV (test code = 16.1 % 12.1-15.4 H 788-0) PLT (test code = See_Comment H [Automated 777-3) message] The system which generated this result transmit charisse reference range : 150 - 328 10*3/ ?L. The reference range was not u sed to interpret th is result as normal/abnormal . MPV (test code = 9.1 fL 9.8-13 L 69646-6) NRBC/100 WBC (test See_Comment [Automat ed code = 5179310795) message] The system which generated this result transmit charisse reference range : 0.0 - 10.0 /100 WBCs. The reference range was not used to interpret this result as normal/abnormal . NRBC x10^3 (test code See_Comment [Auto mated = 4503706479) message] The system which generated this result transmit charisse reference range : 10*3/?L. The reference range was not used to interpret this result as normal/abnormal . GRAN MAT (NEUT) % 87.0 % (test code = 770-8) IMM GRAN % (test code 0.50 % = 5028704337) LYMPH % (test code = 6.0 % 736-9) MONO % (test code = 5.6 % 5905-5) EOS % (test code = 0.6 % 713-8) BASO % (test code = 0.3 % 706-2) GRAN MAT x10^3(ANC) 19.17 10*3/uL 1.99-6.95 H (test code = 4385501019) IMM GRAN x10^3 (test 0.10 10*3/uL 0-0.06 H code = 7554964499) LYMPH x10^3 (test code 1.32 10*3/uL 1.09-3.23 = 731-0) MONO x10^3 (test code 1.23 10*3/uL 0.36-1.02 H = 742-7) EOS x10^3 (test code = 0.13 10*3/uL 0.06-0.53 711-2) BASO x10^3 (test code 0.06 10*3/uL 0.01-0.09 = 704-7) Lab Interpretation Abnormal (test code = 05301-1) [facility] [id number] 21:18:00 Test Item Value Reference Range Interpretation Comments TROPONIN I (test 0.008 ng/mL See_Comment [Automated code = 2802314382) message] The system which generated this result transmitted reference range : <=0.034. The reference range was not used to interpret this result as normal/abnormal . DAKSHA (test code = Equal or Less than DAKSHA) 0.034 ng/ml---Normal ?Note: Cardiac troponin begins to rise 3-4 hours after the onset of ischemia. Repeat in 4-6 hours if the sample was drawn within 3-4 hours of the onset of the symptom and found normal. Between 0.035 and 0.120 ng/mL--- Borderline. Questionable myocardial injury or necrosis ? ?Note: Serial measurement may be necessary to confirm or exclude the diagnosis of myocardial injury or necrosis; Clinical correlation (symptoms, EKGs, imaging studies, and others) required; Repeat in 4-6 hours if clinically indicated. ? Equal or Higher than 0.121 ng/mL---Abnormal. Myocardial Injury or Necrosis Likely ? Biotin has been reported to cause a negative bias, interpret results relative to patient's use of biotin. ? Lab Interpretation Normal (test code = 19791-0) [facility] (NA, K, CL, CO2, GLUCOSE, BUN, CREATININE, CA)2020-08-23 21:12:00 Test Item Value Reference Range Interpretation Comments NA (test code = 139 mmol/L 135-145 9455047936) K (test code = 4.2 mmol/L 3.5-5 7738295944) CL (test code = 113 mmol/L 98-108 H 3352321854) CO2 TOTAL (test code = 16 mmol/L 23-31 L 8535874692) AGAP (test code = 2-16 9324716654) BUN (test code = 46 mg/dL 7-23 H 9599611239) GLUCOSE (test code = 33 mg/dL 70-110 LL 4568482026) CREATININE (test code = 6.28 mg/dL 0.6-1.25 H 6249701619) CALCIUM (test code = 7.6 mg/dL 8.6-10.6 L 0469477185) eGFR Calculation mL/min/1.73m2 (Non-) (test code = 6666840718) eGFR Calculation mL/min/1.73m2 () (test code = 0700409437) DAKSHA (test code = DAKSHA) Association of Glomerular Filtration Rate (GFR) and Staging of Kidney Disease* + --+ --+ ------+| GFR (mL/min/1.73 m2) ?| With Kidney Damage ?| ?Without Kidney Damage+ --------+ --------+ +| ?>90 ?| ?Stage one ?| ? Normal ?+ ---+ ---+ -------+| ?60-89 ?| ?Stage two ?| ? Decreased GFR ? + --+ --+ ------+| ?30-59 ?| ?Stage three ?| ? Stage three ? + --+ --+ ------+| ?15-29 ?| ?Stage four ? | ? Stage four ?+ ---+ ---+ -------+| ?<15 (or dialysis) ? ?| ?Stage five ? | ? Stage five ?+ ---+ ---+ -------+ *Each stage assumes the associated GFR level has been in effect for at least three months. ?Stages 1 to 5, with or without kidney disease, indicate chronic kidney disease. Notes: Determination of stages one and two (with eGFR >59mL/min/1.73 m2) requires estimation of kidney damage for at least three months as defined by structural or functional abnormalities of the kidney, manifested by either:Pathological abnormalities or Markers of kidney damage (including abnormalities in the composition of the blood or urine or abnormalities in imaging tests). Lab Interpretation Abnormal (test code = 38426-6) [facility] CHE[facility] 1 [id number] 21:05:58 Bibasilar pulmonary opacities are likely artifactual due to patient bodyhabitus/soft tissue attenuation. If there is high clinical suspicion for pulmonary pathology, recommend CTof the chest. Preliminary Report Dictated by Resident: Arsalan Anthony MD., have reviewed this study and agree with the abovereport.EXAM: XR CHEST 1 08/23/2020 1:55 PM HISTORY: 39 years-old Male with sob COMPARISON: CR,none TECHNIQUE: AP chest radiograph. FINDINGS: Lungs are hypoinflated with prominent vascular markings. Basilar andslightly peripheral ill-defined opacities are noted, however are morelikely due to soft tissue attenuation due to patient body habitus. Nopleural effusion or pneumothorax identified. The cardiomediastinal silhouette is normal in size for technique No acute osseous abnormalities. [facility], Radiant Results Inft User - 08/23/2020 3:07 PM CSTEXAM: XR CHEST 1 08/23/2020 1:55 PMHISTORY: 39 years-old Male with sob COMPARISON: CR,none TECHNIQUE: AP chest radiograph.FINDINGS:Lungs are hypoinflated with prominent vascular markings. Basilar andslightly peripheral ill-defined opacities are noted, however are morelikely due to soft tissue attenuation due to patient body habitus. Nopleural effusion or pneumothorax identified.The cardiomediastinal silhouette is normal in size for techniqueNo acute osseous abnormalities.IMPRESSIONBibasilar pulmonary opacities are likely artifactual due to patient bodyhabitus/soft tissue attenuation.If there is high clinical suspicion for pulmonary pathology, recommend CTof the chest.Preliminary Report Dictated by Resident: Bella Chadwick, Arsalan Soto MD., have reviewed this study and agree with the abovereport.[facility]AUT[facility])2020-08-23 21:04:00 Test Item Value Reference Range Interpretation Comments POCT GLU (test code = 6280584834) 73 mg/dL 70-110 Lab Interpretation (test code = Normal 91725-9) [facility] PANEL 20 + LACTIC [id number] 20:35:00 Test Item Value Reference Range Interpretation Comments PH (test code = 2) 7.35-7.45 L PCO2 (test code = See_Comment L [Automate d 5280818240) message] The sy stem which generated this result transmitted reference range : 35 - 45 mmHg. The reference range was not used to interpret this result as normal/abnormal . PO2 (test code = See_Comment L [Automated 3362566508) message] The sy stem which generated this result transmitted reference range : 80 - 100 mmHg. The reference range was not used to interpret this result as normal/abnormal . HCO3 (test code = See_Comment L [Automate d 9446124313) message] The sy stem which generated this result transmitted reference range : 22 - 26 mEq/L. The reference range was not used to interpret this result as normal/abnormal . BE (test code = See_Comment L [Automated 0775475223) message] The sy stem which generated this result transmitted reference range : -3.0 - 3.0 mEq/ L. The reference r elgin was not used to interpret this result as normal/abnormal . THB (test code = 9.8 g/dL 13.5-18 L 1655118769) %O2HB (test code = 90.7 % 94-99 L 6081531391) %COHB ART (test code = 0.3 % 0-1.5 3890525664) %METHB ART (test code = 0.5 % 0.4-1.5 6340464348) VOL%O2 ART (test code = 12.5 % 15-23 L 8817918951) NA (test code = 139 mmol/L 135-145 2564652439) K+ (test code = 4.1 mmol/L 3.5-5 4424371526) AC CA IONZ (test code = 4.20 mg/dL 4.5-5.3 L 0080576322) GLUCOSE (test code = 32 mg/dL 70-110 LL 9492916873) LACTIC ACID (test code 1.00 mmol/L 0.5-2.2 = 9284526617) Lab Interpretation Abnormal (test code = 85534-1) [facility]"
[2022-12-14] MEDS ORDERED: D50W 25 GM/50 ML SYRINGE IV ONE ×2 (07:19→08:36)
[2022-12-14] MEDS ORDERED: D5 0.9 NS 1,000 ML IV ONE (07:34)
--- NOTE | 2022-12-14 08:32 | RAD REPORT ---
EXAM DESCRIPTION: CT - Head Brain Wo Cont - 12/14/2022 8:15 am CLINICAL HISTORY: CONFUSED COMPARISON: No comparisons TECHNIQUE: All CT scans are performed using dose optimization technique as appropriate and may inclu de automated exposure control or mA/KV adjustment according to patient size. FINDINGS: No intracranial hemorrhage, hydrocephalus or extra-axial fluid collection.No areas of brai n edema or evidence of midline shift. The paranasal sinuses and mastoids are clear. The calvarium is intact. IMPRESSION: No acute intracranial abnormality.
[2022-12-14] MEDS ORDERED: HYDROCORTISONE SUC 100 MG INJ ONE (08:36)
[2022-12-14 08:55] LABS: Absolute Lymphocytes (CBC) 1.3 K/uL (0.7-4.9); Hematocrit 26.4 % (39.6-49.0); Lymphocytes % 7.6 % (15.3-44.8); MCV 78.5 fL (80-100); MPV 7.4 fL (7.6-11.3); RBC Red Blood Cell Count 3.37 M/uL (4.33-5.43)
[2022-12-14 08:59] LABS: Protime INR 1.25
[2022-12-14 09:23] LABS: Potassium 3.6 mEq/L (3.5-5.1)
[2022-12-14 09:30] LABS: Magnesium 1.5 mg/dL (1.6-2.4)
--- NOTE | 2022-12-14 09:43 | RAD REPORT ---
EXAM DESCRIPTION: RAD - Chest Single View - 12/14/2022 9:36 am CLINICAL HISTORY: elevated WBC COMPARISON: <Comparisons> FINDINGS: Lines: None. Lungs: Diffuse prominence of the pulmonary interstitium. Pleural: No significant pleural effusions or pneumothorax. Cardiac: Cardiomegaly. Mediastinum: Within normal limits. Bones: No acute fractures. Other: None IMPRESSION: Moderately enlarged cardiopericardial silhouette with widespread airspace disease likely reflecting pulmonary edema. Consider echocardiography to exclude a pericardial effusion.
--- NOTE | 2022-12-14 09:54 | EDPHYS ---
Physician Documentation [facility] Name: Joss Sheppard Age: 42 yrs Sex: Male : 1980 Arrival Date: 12/14/2022 Time: 07:09 Bed 19 Private MD: ED Physician Alex Baez HPI: 12/14 07:37 This 42 yrs old Black Male presents to ER via EMS with complaints of low blood sugar, rn AMS. 07:37 The patient or guardian reports hypoglycemia, that was potentially precipitated by not rn eating. Onset: The symptoms/episode began/occurred at an unknown time. Current symptoms: In the emergency department the patient's symptoms are unchanged from the initial presentation. The patient has experienced a previous episode. The patient has not recently seen a physician. EMS reports patient works overnight, no longer taking his insulin, was found to be altered/confused/slow to respond, glucose was in 40s, given oral glucose x 2, without improvement. Glucose down to 30s. Patient awake and answer questions. Reports not taking any meds. He states has not been eating lately and works night shifts. No headache/focal neuro complaints/chest pain/abd pain/vomiting/diarrhea. . Historical: - Allergies: 07:16 NKA; bp - Home Meds: 07:16 Tresiba FlexTouch U-100 100 unit/mL (3 mL) subcutaneous inpn daily [Active]; lisinopril bp Oral [Active]; - PMHx: 07:16 Diabetes - IDDM; Hypertension; bp - Immunization history:: Adult Immunizations up to date. - Social history:: Smoking status: Patient denies any tobacco usage or history of. - Family history:: not pertinent. - Hospitalizations: : No recent hospitalization is reported. ROS: 07:37 Constitutional: Negative for fever, chills, and weight loss, Eyes: Negative for injury, rn pain, redness, and discharge, Neck: Negative for injury, pain, and swelling, Cardiovascular: Negative for chest pain, palpitations, and edema, Respiratory: Negative for shortness of breath, cough, wheezing, and pleuritic chest pain, Abdomen/GI: Negative for abdominal pain, nausea, vomiting, diarrhea, and constipation, Back: Negative for injury and pain, MS/Extremity: Negative for injury and deformity, Skin: Negative for injury, rash, and discoloration, Neuro: Negative for headache, weakness, numbness, tingling, and seizure. Exam: 07:37 Constitutional: This is a well developed, well nourished patient who is awake, alert, rn and in no acute distress. ENT: dry MM Cardiovascular: Regular rate and rhythm. No pulse deficits. Respiratory: No increased work of breathing, no retractions or nasal flaring. Abdomen/GI: Soft, non-tender Skin: Warm, dry MS/ Extremity: Pulses equal, no cyanosis. Neuro: Awake, slow to respond, moves all 4 extremities, oriented to person/place 08:50 ECG was reviewed by the Attending Physician. rn Vital Signs: 07:15 BP 206 / 92; Pulse 86; Resp 19; Temp 97.5; Pulse Ox 99% ; bp 08:40 BP 166 / 64; Pulse 81; Resp 18; Pulse Ox 98% on R/A; eh3 09:00 BP 199 / 89; Pulse 80; Resp 18; Pulse Ox 95% on R/A; eh3 09:30 BP 229 / 108; Pulse 88; Resp 18; Pulse Ox 99% on R/A; eh3 10:00 BP 198 / 100; Pulse 86; Resp 18; Pulse Ox 100% on R/A; eh3 10:30 BP 202 / 103; Pulse 81; Resp 18; Pulse Ox 97% on R/A; eh3 11:00 BP 194 / 83; Pulse 85; Resp 18; Pulse Ox 99% on R/A; eh3 11:30 BP 189 / 90; Pulse 81; Resp 18; Pulse Ox 95% on R/A; eh3 12:30 BP 196 / 148; Pulse 89; Resp 18; Pulse Ox 98% on R/A; eh3 MDM: 07:12 Patient medically screened. rn 09:51 Differential diagnosis: hypoglycemic episode, acute kidney failure, dehydration, rn uncontrolled HTN. Data reviewed: vital signs, nurses notes, lab test result(s), EKG, radiologic studies, CT scan, plain films, and as a result, I will admit patient. 09:52 Consideration of Admission/Observation Patient was admitted/placed on observation. rn Escalation of care including admission/observation considered. Care significantly affected by the following chronic conditions: Obesity, Chronic Kidney Disease. Counseling: I had a detailed discussion with the patient and/or guardian regarding: the historical points, exam findings, and any diagnostic results supporting the discharge/admit diagnosis, lab results, radiology results, the need for further work-up and treatment in the hospital. Response to treatment: the patient's symptoms have mildly improved after treatment, and as a result, I will admit patient. 10:08 ED course: Pt denies taking any nephrotoxic drugs, reports symptoms for weeks, no chest rn pain or sob, more alert. . 12/14 07:13 Order name: CBC with Diff; Complete Time: 09:18 rn 12/14 07:13 Order name: Basic Metabolic Panel; Complete Time: 09:50 rn 12/14 07:13 Order name: Protime (+inr); Complete Time: 09:18 rn 12/14 07:13 Order name: Ptt, Activated; Complete Time: 09:18 rn 12/14 07:13 Order name: Magnesium; Complete Time: 09:50 rn 12/14 07:35 Order name: Glucose, Ancillary Testing; Complete Time: 08:39 EDMS 12/14 08:38 Order name: Glucose, Ancillary Testing; Complete Time: 08:39 EDMS 12/14 09:19 Order name: SARS RAPID rn 12/14 09:19 Order name: Flu rn 12/14 09:19 Order name: Strep rn 12/14 09:34 Order name: Glucose, Ancillary Testing; Complete Time: 09:50 EDMS 12/14 09:53 Order name: LAB Add On eb 12/14 09:58 Order name: Troponin High Sensitivity; Complete Time: 11:01 EDMS 12/14 09:58 Order name: NT PRO-BNP; Complete Time: 11:01 EDMS 12/14 11:06 Order name: Glucose, Ancillary Testing; Complete Time: 13:21 EDMS 12/14 11:36 Order name: CBC with Automated Diff EDMS 12/14 11:36 Order name: CBC with Automated Diff EDMS 12/14 11:36 Order name: Comprehensive Metabolic Panel EDOR 12/14 11:36 Order name: Comprehensive Metabolic Panel EDOR 12/14 11:36 Order name: Hemoglobin A1c EDOR 12/14 11:36 Order name: Hemoglobin A1c EDOR 12/14 11:36 Order name: Basic Metabolic Panel EDOR 12/14 12:38 Order name: Glucose, Ancillary Testing; Complete Time: 13:21 EDMS 12/14 07:13 Order name: CT Head Brain wo Cont; Complete Time: 08:39 rn 12/14 09:19 Order name: XRAY Chest (1 view); Complete Time: 09:50 rn 12/14 11:36 Order name: Renal Ultrasound-Complete EDMS 12/14 07:13 Order name: EKG; Complete Time: 07:14 rn 12/14 09:24 Order name: Diet Regular; Complete Time: 09:25 aa5 12/14 11:36 Order name: CONS Physician Consult EDOR 12/14 07:13 Order name: IV Start; Complete Time: 07:19 rn 12/14 07:13 Order name: Glucose Level; Complete Time: 07:31 rn 12/14 07:13 Order name: EKG - Nurse/Tech; Complete Time: 08:12 rn 12/14 07:44 Order name: Labs - recollect needed: ALL LABS; Complete Time: 08:39 ss EC:50 Rate is 87 beats/min. Rhythm is regular. QRS [place] is Normal. [place] interval is normal. QRS rn interval is normal. QT interval is normal. No Q waves. T waves are Normal. No ST changes noted. Clinical impression: Normal ECG. Interpreted by me. Reviewed by me. Administered Medications: 07:18 Drug: D50W IVP 50 ml Route: IVP; Site: right antecubital; bp 08:39 Follow up: Response: No adverse reaction bp 07:31 Drug: D5-NS IV 1000 ml Route: IV; Rate: 125 ml/hr; Site: right antecubital; bp 08:39 Drug: Solu-CORTEF IVP 100 mg Route: IVP; Site: right antecubital; bp 10:09 Follow up: Response: No adverse reaction eh3 08:39 Drug: D50W IVP 50 ml Route: IVP; Site: right antecubital; bp 10:09 Follow up: Response: No adverse reaction eh3 11:10 Drug: Glucagon IVP 1 mg Route: IVP; Site: right antecubital; eh3 12:00 Follow up: Response: No adverse reaction eh3 11:10 Drug: D50W IVP 50 ml Route: IVP; Site: right antecubital; eh3 12:00 Follow up: Response: No adverse reaction eh3 Disposition Summary: 12/14/22 09:53 Hospitalization Ordered Hospitalization Status: Inpatient Admission rn Provider: Jorje Case rn Condition: Stable rn Problem: new rn Symptoms: have improved rn Bed/Room Type: Standard rn Location: Intensive Care Unit(12/14/22 12:27) eb Room Assignment: 3-(12/14/22 12:27) eb Diagnosis - Acute kidney failure, unspecified rn - Hypoglycemia, unspecified rn - Hypocalcemia rn - Hypomagnesemia rn Forms: - Medication Reconciliation Form rn - SBAR form pattern molder time excluding procedures: 09:52 Critical care time: Bedside Care: 35 minutes, Consultation: 5 minutes. Total time: 40 rn minutes Signatures: Dispatcher [employer] EDMS Alex Baez MD MD rn Blanchard, Shelby RN RN Gilbert Tomas RN RN Alena Marino Erin, RN RN eh3 Corrections: (The following items were deleted from the chart) 12:05 09:53 Telemetry/MedSurg (Inpatient) rn eb 12:05 09:53 rn eb 12: 12:05 [facility] ER HOLD eb eb 12:27 12:05 ERHOLD- eb eb
--- NOTE | 2022-12-14 09:54 | ER ---
Nurse's Notes [facility] Name: Joss Sheppard Age: 42 yrs Sex: Male : 1980 Arrival Date: 12/14/2022 Time: 07:09 Bed 19 Private MD: Diagnosis: Acute kidney failure, unspecified;Hypoglycemia, unspecified;Hypocalcemia;Hypomagnesemia Presentation: 12/14 07:15 Chief complaint: EMS states: HYPOGLYCEMIA. Coronavirus screen: At this time, the client bp does not indicate any symptoms associated with coronavirus-19. Ebola Screen: No symptoms or risks identified at this time. Initial Sepsis Screen: Does the patient meet any 2 criteria? No. Patient's initial sepsis screen is negative. Does the patient have a suspected source of infection? No. Patient's initial sepsis screen is negative. Risk Assessment: Do you want to hurt yourself or someone else? Patient reports no desire to harm self or others. Onset of symptoms was December 14, 2022 at 06:00. Care prior to arrival: Medication(s) given: ORAL GLUCOSE Glucose check: 39. 07:15 Method Of Arrival: EMS bp 07:15 Acuity: BG 2 bp Triage Assessment: 07:16 General: Appears distressed, obese, Behavior is drowsy. Pain: Denies pain. EENT: No bp deficits noted. Neuro: Level of Consciousness is lethargic. Cardiovascular: No deficits noted. Respiratory: No deficits noted. GI: No signs and/or symptoms were reported involving the gastrointestinal system. : No signs and/or symptoms were reported regarding the genitourinary system. Derm: Skin is diaphoretic. Musculoskeletal: No deficits noted. Historical: - Allergies: 07:16 NKA; bp - Home Meds: 07:16 Tresiba FlexTouch U-100 100 unit/mL (3 mL) subcutaneous inpn daily [Active]; lisinopril bp Oral [Active]; - PMHx: 07:16 Diabetes - IDDM; Hypertension; bp - Immunization history:: Adult Immunizations up to date. - Social history:: Smoking status: Patient denies any tobacco usage or history of. - Family history:: not pertinent. - Hospitalizations: : No recent hospitalization is reported. Screenin:18 [facility] ED Fall Risk Assessment (Adult) History of falling in the last 3 months, bp including since admission No falls in past 3 months (0 pts). Abuse screen: Denies threats or abuse. Denies injuries from another. Nutritional screening: No deficits noted. Tuberculosis screening: No symptoms or risk factors identified. Assessment: 07:18 General: SEE TRIAGE NOTE. bp 08:40 General: Appears in no apparent distress. uncomfortable, Behavior is cooperative, eh3 appropriate for age, drowsy. Pain: Denies pain. Neuro: Level of Consciousness is alert, obeys commands, Oriented to person, place, time, situation. Cardiovascular: Capillary refill < 3 seconds Patient's skin is warm and dry. Respiratory: Airway is patent Respiratory effort is even, unlabored, Respiratory pattern is regular, symmetrical. GI: Abdomen is round non-distended. : No signs and/or symptoms were reported regarding the genitourinary system. EENT: No signs and/or symptoms were reported regarding the EENT system. Derm: Skin is diaphoretic. Musculoskeletal: Circulation, motion, and sensation intact. 09:00 Reassessment: Patient appears in no apparent distress at this time. Patient and/or eh3 family updated on plan of care and expected duration. Pain level reassessed. Patient is alert, oriented x 3, equal unlabored respirations, skin warm/dry/pink. 09:30 Reassessment: Patient appears in no apparent distress at this time. Patient and/or eh3 family updated on plan of care and expected duration. Pain level reassessed. Patient is alert, oriented x 3, equal unlabored respirations, skin warm/dry/pink. 10:00 Reassessment: Patient appears in no apparent distress at this time. Patient and/or eh3 family updated on plan of care and expected duration. Pain level reassessed. Patient is alert, oriented x 3, equal unlabored respirations, skin warm/dry/pink. 11:00 Reassessment: Patient appears in no apparent distress at this time. Patient and/or eh3 family updated on plan of care and expected duration. Pain level reassessed. Patient is alert, oriented x 3, equal unlabored respirations, skin warm/dry/pink. Vital Signs: 07:15 BP 206 / 92; Pulse 86; Resp 19; Temp 97.5; Pulse Ox 99% ; bp 08:40 BP 166 / 64; Pulse 81; Resp 18; Pulse Ox 98% on R/A; eh3 09:00 BP 199 / 89; Pulse 80; Resp 18; Pulse Ox 95% on R/A; eh3 09:30 BP 229 / 108; Pulse 88; Resp 18; Pulse Ox 99% on R/A; eh3 10:00 BP 198 / 100; Pulse 86; Resp 18; Pulse Ox 100% on R/A; eh3 10:30 BP 202 / 103; Pulse 81; Resp 18; Pulse Ox 97% on R/A; eh3 11:00 BP 194 / 83; Pulse 85; Resp 18; Pulse Ox 99% on R/A; eh3 11:30 BP 189 / 90; Pulse 81; Resp 18; Pulse Ox 95% on R/A; eh3 12:30 BP 196 / 148; Pulse 89; Resp 18; Pulse Ox 98% on R/A; eh3 ED Course: 07:12 Patient arrived in ED. rn 07:12 Alex Baez MD is Attending Physician. rn 07:14 Gilbert Felix, SUSANA is Primary Nurse. bp 07:16 Triage completed. bp 07:18 Arm band placed on. bp 07:18 Patient has correct armband on for positive identification. Bed in low position. Call bp light in reach. Side rails up X2. 07:18 Inserted saline lock: 20 gauge in right antecubital area, using aseptic technique. bp Blood collected. 08:16 CT Head Brain wo Cont In Process Unspecified. EDMS 08:40 Report received from Gilbert Felix RN. eh3 09:33 Diet: Patient given snack. Patient given juice. Tolerated well. eh3 09:37 XRAY Chest (1 view) In Process Unspecified. EDMS 09:53 Jorje Case MD is Hospitalizing Provider. rn 12:35 No provider procedures requiring assistance completed. Patient admitted, IV remains in eh3 place. Administered Medications: 07:18 Drug: D50W IVP 50 ml Route: IVP; Site: right antecubital; bp 08:39 Follow up: Response: No adverse reaction bp 07:31 Drug: D5-NS IV 1000 ml Route: IV; Rate: 125 ml/hr; Site: right antecubital; bp 08:39 Drug: Solu-CORTEF IVP 100 mg Route: IVP; Site: right antecubital; bp 10:09 Follow up: Response: No adverse reaction eh3 08:39 Drug: D50W IVP 50 ml Route: IVP; Site: right antecubital; bp 10:09 Follow up: Response: No adverse reaction eh3 11:10 Drug: Glucagon IVP 1 mg Route: IVP; Site: right antecubital; eh3 12:00 Follow up: Response: No adverse reaction eh3 11:10 Drug: D50W IVP 50 ml Route: IVP; Site: right antecubital; eh3 12:00 Follow up: Response: No adverse reaction eh3 Medication: 07:18 VIS not applicable for this client. bp Outcome: 09:53 Decision to Hospitalize by Provider. rn 13:29 Patient left the ED. aa5 Signatures: Dispatcher [employer] EDMS Alex Baez MD MD rn Calderon, Audri RN RN aa5 Gilbert Felix RN Isabel Marc RN RN eh3 Corrections: (The following items were deleted from the chart) 10:08 08:30 BP 166 / 64; Pulse 81bpm; Resp 18bpm; Pulse Ox 98% RA; eh3 eh3
[2022-12-14 10:11] LABS: Troponin High Sensitivity 31.8 pg/mL (<58.9)
[2022-12-14] MEDS ORDERED: D10W 250 ML IV ONE (11:11)
[2022-12-14] MEDS ORDERED: GLUCAGON 1 MG/VIAL ONE (11:11)
[2022-12-14] MEDS ORDERED: cloNIDine HCL 0.1 MG TAB PO PRN (11:29)
[2022-12-14] MEDS ORDERED: ONDANSETRON 4 MG/2 ML VIAL IV PRN (11:29)
[2022-12-14] MEDS ORDERED: ACETAMINOPHEN 500 MG TAB PO PRN (11:29)
[2022-12-14] MEDS ORDERED: D50W 25 GM/50 ML SYRINGE IV PRN (11:34)
--- NOTE | 2022-12-14 11:35 | P.HP ---
Certification for Inpatient Patient admitted to: Inpatient With expected LOS: >2 Midnights Patient will require the following post-hospital care: None Practitioner: I am a practitioner with admitting privileges, knowledge of patient current condition, hospital course, and medical plan of care. Services: Services provided to patient in accordance with Admission requirements found in Title 42 Section 412.3 of the Code of Federal Regulations Patient History Date of Service: 12/14/22 Reason for admission: Hypoglycemia; Acute on CKD; ESRD History of Present Illness: Patient is a 42-year-old gentleman with a history of chronic kidney disease, diabetes, hypertension, morbid obesity with a BMI greater than 50, who presents to the hospital with severe hyperglycemia. He has been refractory to multiple boluses of dextrose. When I came to see him his blood sugar was still in the 30s. Placed him on D10 at 50 cc an hour. Have also told the nurse to start encouraging increased amount of sugar until we get his blood sugars over 80. He most likely is severely acidotic as he appears to have obstructive sleep apnea. I will assume his CO2 is very high and his baseline bicarb is also significantly elevated. I believe his bicarb of 16 suggest a significant degree of acidosis. Patient most likely used insulin and is not being secreted by his kidneys. It is driving his blood sugars down continuously. Nephrology has ordered surgery consultation for hemodialysis access catheter. Patient blood pressure is also significantly elevated. He has been placed on a nicardipine drip. We will monitor patient's volume status very closely. Hopefully he is still making urine at this time. He is Lasix IV. Renal ultrasound is pending. Will probably need to place him on BiPAP at night while he sleeps. Patient will most likely benefit from dialysis in the short run and hopefully his kidneys can recover afterwards. Patient will be admitted to the intensive care unit. Allergies No Known Allergies Allergy (Verified 06/12/18 02:18) Home Medications: Amlodipine [Norvasc*] 10 mg PO DAILY 06/12/18 Insulin Degludec [Tresiba Flextouch U-100] 36 units SQ DAILY 06/12/18 Losartan Potassium [Cozaar] 100 mg PO DAILY 06/12/18 Amlodipine [Norvasc*] 10 mg PO DAILY #30 tab 06/13/18 Terazosin HCl [Hytrin*] 4 mg PO BID #120 cap 06/13/18 carvediloL [Coreg*] 25 mg PO BID #60 tab 06/13/18 - Past Medical/Surgical History Diabetic: Yes -: IDDM -: HTN Past Surgical History: Patient denies surgical history - Family History Father Medical History: Hypertension, Diabetes Mother Medical History: Hypertension, Diabetes - Social History Smoking Status: Never smoker Alcohol use: Yes CD- Drugs: No Caffeine use: Yes Review of Systems 10-point ROS is otherwise unremarkable Physical Examination - Vital Signs Temperature: 98 F Blood Pressure: 190/100 Pulse: 90 Respirations: 18 Pulse Ox (%): 93 - Physical Exam General: Alert, In no apparent distress, Obese, Other (Patient is fairly lethargic) HEENT: Atraumatic, PERRLA, Mucous membr. moist/pink, EOMI, Sclerae nonicteric Neck: Supple, 2+ carotid pulse no bruit, No LAD, Without JVD or thyroid abnormality Respiratory: Clear to auscultation bilaterally, Normal air movement Cardiovascular: Regular rate/rhythm, Normal S1 S2, No murmurs Gastrointestinal: Normal bowel sounds, Soft and benign, Non-distended, No tenderness Musculoskeletal: No clubbing, No swelling, No tenderness Integumentary: Other (cool clammy) Neurological: Normal speech, Normal tone, Sensation intact, Cranial nerves 3-12 intact, Normal affect, Abnormal gait, Abnormal strength Lymphatics: No axilla or inguinal lymphadenopathy - Studies Laboratory Data (last 24 hrs) 12/14/22 08:35: PT 13.7 H, INR 1.25, APTT 30.2 12/14/22 08:35: Sodium 137, Potassium 3.6, BUN 80 H, Creatinine 9.45 H, Glucose 32 L*, Magnesium 1.5 L 12/14/22 08:35: WBC 17.50 H, Hgb 8.3 L, Hct 26.4 L, Plt Count 345 Assessment & Plan - Problems (Diagnosis) (1) PASCALE (acute kidney injury) Onset Date: 06/12/18 Current Visit: No Status: Acute (2) Malignant diastolic hypertension with CHF, NYHA class 2 Current Visit: No Status: Acute (3) Hypoglycemia due to insulin Current Visit: Yes Status: Acute (4) Metabolic acidosis Current Visit: Yes Status: Acute (5) Hypocalcemia Current Visit: Yes Status: Acute (6) Morbid obesity Current Visit: Yes Status: Acute (7) Hypertensive emergency Current Visit: Yes Status: Acute (8) Obesity hypoventilation syndrome Current Visit: Yes Status: Acute - Plan Plan: 1. Continue with bicarb drip 2. Continue with persistent dextrose until blood sugars are elevated 3. Arrange for hemodialysis 4. Monitor multiple electrolyte abnormalities 5. Nicardipine drip 6. Echocardiogram 7. Renal ultrasound 8. BiPAP at night 9. Check lactic acid and acetone 10. GI and DVT prophylaxis - Advance Directives Does patient have a Living Will: No Does patient have a Durable POA for Healthcare: No
[2022-12-14] MEDS ORDERED: D5W 1,000 ML with NA BICARB 8.4% 50 MEQ IV SCH ×4 (12:00)
[2022-12-14 12:38] VITALS: BMI 53.1
[2022-12-14] MEDS ORDERED: AMLODIPINE 10 MG TAB ONE (12:56)
[2022-12-14] MEDS ORDERED: AMLODIPINE 5 MG TAB PO ONE (13:00)
[2022-12-14] MEDS: ISOSORBIDE DINIT 20 MG TAB PO SCH (14:00)
--- NOTE | 2022-12-14 14:22 | P.CNS ---
Date of Consult: 12/14/22 Reason for Consult: Renal failure Requesting Physician: Jorje Case Chief Complaint: Hypoglycemia History of Present Illness: Pt is a 42 yo AAM with chronic hx of malignant HTN, unspecified NIDDM, prior admission here in 2018 at which time pt's Cr level was noted to mild to mod elevated although pt has morbid obesity and large body habitus as well. Pt was seen in consultation by Dr. Jean Baptiste but has never followed in clinic and has generally not had regular f/u in recent years. He has not been monitoring his BP, he claims to be taking BP meds but does not know the names of the meds. He presented today to low BG and confusion with symptomatic hypoglycemia. His labs showed overt renal failure with metab derangements. Pt acknowledges reduced UOP over the past few days. Allergies No Known Allergies Allergy (Verified 06/12/18 02:18) Home Medications: Amlodipine [Norvasc*] 10 mg PO DAILY 06/12/18 Insulin Degludec [Tresiba Flextouch U-100] 36 units SQ DAILY 06/12/18 Losartan Potassium [Cozaar] 100 mg PO DAILY 06/12/18 Amlodipine [Norvasc*] 10 mg PO DAILY #30 tab 06/13/18 Terazosin HCl [Hytrin*] 4 mg PO BID #120 cap 06/13/18 carvediloL [Coreg*] 25 mg PO BID #60 tab 06/13/18 - Past Medical/Surgical History Diabetic: Yes -: IDDM -: HTN - Family History Father Medical History: Hypertension, Diabetes Mother Medical History: Hypertension, Diabetes - Social History Alcohol use: Yes CD- Drugs: No Caffeine use: Yes Review of Systems General: Weakness, Malaise Cardiovascular: Edema, As per HPI Gastrointestinal: Other (Loss of appetite) Genitourinary: As per HPI Neurological: Weakness, Confusion Physical Examination Temp Pulse Resp BP Pulse Ox 98.5 F 82 18 197/112 H 98 12/14/22 12:00 12/14/22 12:51 12/14/22 12:00 12/14/22 12:51 12/14/22 12:00 General: In no apparent distress, Cooperative HEENT: Atraumatic, Normocephalic Neck: Supple Respiratory: Normal air movement, Diminished Cardiovascular: Regular rate/rhythm, Edema Gastrointestinal: No tenderness, No guarding, Other (Obese) Musculoskeletal: No tenderness, Swelling Integumentary: No warmth, Skin lesion Neurological: Normal speech, Normal tone, Normal affect Laboratory Data (last 24 hrs) 12/14/22 08:35: PT 13.7 H, INR 1.25, APTT 30.2 12/14/22 08:35: Sodium 137, Potassium 3.6, BUN 80 H, Creatinine 9.45 H, Glucose 32 L*, Magnesium 1.5 L 12/14/22 08:35: WBC 17.50 H, Hgb 8.3 L, Hct 26.4 L, Plt Count 345 Conclusions/Impression: A/P) 1. Suspected progressive advanced CKD, now V in the setting of malignant HTN/nephrosclerosis +/- other primary glomerulopathy, non compliance, other. Labs even in 2018 showed then Cr level elevated and with urine studies showing macroalbuminuria. Of course can not rule out entirely ARF on CKD process but no specific reports of urinary retention (renal u/s pending, u/s from 2018 showed preserved renal sizes then). Will obtain urine studies to assess for active sediment, re-assess proteinuria, other. 2. K level is ok this afternoon on presentation and while pt does have metab acidosis with sig bicarb deficit on account of his large body weight, will need to await stabilization of his BG and BP before asking surgery to place a dialysis catheter (temp at this time and tunneled conversion can be later in the week when stable). Indications for HD discussed with pt. 3. Hypertensive urgency -PO BP meds ordered by primary team -will order nitro gtt if BP remains elevated post meds 4. Hypoglycemia, unspecified -BG remain < 70, will switch IVF to D10 fluids 5. Will add sodium bicarb 75 meq to the D10 IVF but will need to be cautious with Na bicarb addition given his elevated BP and to prevent further fluid overload 6. Will place on IV lasix since hypertensive and with fluid overload. Wil Singh MD, ABBI
[2022-12-14] MEDS: HYDRALAZINE HCL 25 MG TABLET PO SCH ×2 (15:00→21:04)
[2022-12-14] MEDS ORDERED: NITROGLYCERIN/D5W 50 MG/250 ML BTL IV SCH (15:00)
[2022-12-14] MEDS: FUROSEMIDE 40 MG/4 ML VIAL IV SCH ×2 (15:06→16:05)
[2022-12-14] MEDS: CALCITROL 0.25 MCG CAP PO SCH (15:07)
[2022-12-14] MEDS: MAGNESIUM OXIDE 400 MG TAB PO SCH (15:07)
[2022-12-14] MEDS: WATER IV SCH ×2 (16:09)
[2022-12-14] MEDS: DEXTROSE IV SCH ×2 (16:09)
[2022-12-14] MEDS: NA BICARB IV SCH ×2 (16:09)
[2022-12-14] MEDS ORDERED: D10W 250 ML IV SCH ×2 (17:00→23:45)
[2022-12-14 17:02] LABS: Blood Gas Oxyhemoglobin 89.9 % (94-97); Blood O2 Saturation 92.3 % (92-98.5)
[2022-12-14] MEDS ORDERED: cloNIDine HCL 0.1 MG TAB PO ONE (17:07)
[2022-12-14] MEDS ORDERED: Nicardipine/NS 0 MG/0 ML KIT IV ONE (17:18)
[2022-12-14] MEDS: CALCIUM ACETATE 667 MG TAB PO SCH (17:24)
[2022-12-14 17:30] LABS: Potassium 4.7 mEq/L (3.5-5.1)
[2022-12-14] MEDS ORDERED: Nicardipine/NS 25 MG/250 ML KIT IV ONE (17:50)
--- NOTE | 2022-12-14 17:51 | RAD REPORT ---
EXAM DESCRIPTION: US - Renal Ultrasound-Complete - 12/14/2022 5:29 pm CLINICAL HISTORY: PASCALE COMPARISON: Renal Ultrasound-Complete dated 06/11/2018 FINDINGS: Increased renal cortical echogenicity. The right kidney measures 11.8 cm. Right upper pole renal cyst measuring 2.7 cm. No stones or masses. The left kidney measures 11.2 cm. No hydronephrosis, focal mass or perinephric fluid. IMPRESSION: Increased renal cortical echogenicity consistent with medical renal disease. No hydronep hrosis.
[2022-12-14] MEDS ORDERED: Nicardipine in Saline, Iso-Osm 20 MG/200 ML IV.SOLN. IV SCH (18:00)
[2022-12-14 18:33] LABS: Specific Gravity 1.008 (1.005-1.030); Urine Bacteria 20-50 /HPF (<20); Urine Bilirubin NEGATIVE (Negative); Urine Blood 2+ (Negative); Urine Clarity Extremely Turbid (Clear); Urine Color Colorless (Yellow); Urine Glucose NEGATIVE (Negative); Urine Mucus Slight /HPF (None Seen); Urine Protein 3+ (Negative); Urine RBC <5 /HPF (None Seen); Urine Urobilinogen Normal (Normal); Urine pH 5.5 (5.0-7.0)
[2022-12-15] MEDS: FUROSEMIDE 40 MG/4 ML VIAL IV SCH ×3 (00:37→17:32)
[2022-12-15] MEDS: D50W 25 GM/50 ML SYRINGE IV ONE ×2 (01:11→04:14)
[2022-12-15] MEDS ORDERED: D10W 250 ML IV ONE ×2 (02:00→04:00)
[2022-12-15] MEDS ORDERED: GLUCAGON 1 MG/VIAL IV STA (02:04)
[2022-12-15] MEDS: WATER IV SCH ×4 (02:31→15:08)
[2022-12-15] MEDS: NA BICARB IV SCH ×4 (02:31→15:08)
[2022-12-15] MEDS: DEXTROSE IV SCH ×4 (02:31→15:08)
[2022-12-15] MEDS ORDERED: Nicardipine/NS 25 MG/250 ML KIT IV ONE (02:43)
[2022-12-15] MEDS ORDERED: D50W 25 GM/50 ML SYRINGE IV ONE (04:00)
[2022-12-15] MEDS ORDERED: OCTREOTIDE ACETATE 100 MCG/ML SQ ONE (04:07)
[2022-12-15 04:56] LABS: Absolute Lymphocytes (CBC) 1.4 K/uL (0.7-4.9); Hematocrit 28.1 % (39.6-49.0); Lymphocytes % 6.8 % (15.3-44.8); MCV 78.2 fL (80-100); MPV 7.5 fL (7.6-11.3)
[2022-12-15 05:31] LABS: Albumin 2.3 g/dL (3.4-5.0); Bilirubin Total 0.3 mg/dL (0.2-1.0); Potassium 3.9 mEq/L (3.5-5.1); Protein, Total 7.1 g/dL (6.4-8.2)
[2022-12-15] MEDS: CALCITROL 0.25 MCG CAP PO SCH (08:45)
[2022-12-15] MEDS: CALCIUM ACETATE 667 MG TAB PO SCH ×3 (08:45→17:32)
[2022-12-15] MEDS: AMLODIPINE 10 MG TAB PO SCH (08:46)
[2022-12-15] MEDS: MAGNESIUM OXIDE 400 MG TAB PO SCH (08:46)
[2022-12-15] MEDS: HYDRALAZINE HCL 25 MG TABLET PO SCH ×3 (08:46→20:58)
[2022-12-15] MEDS ORDERED: CALCIUM GLUCONATE 1 GM IVPB 2 GM/100 ML BAG IV ONE (09:45)
--- NOTE | 2022-12-15 10:56 | P.PN ---
Renal note (S) Telemed note, spoke to Patience [employer]ELOPER [employer], pt is off Cardene gtt, remains on D10 with sodium bicarb added, pt did have some breakfast this AM. Pt denies abd pain or dyspnea or nausea. He did take his PO meds this AM. He is making some urine but talked to the phone for some time and explained to him that his renal function tests continue to indicate significant renal failure with metab derangements including hypocalcemia. Pt is now agreeable to at least temp dialysis catheter placement and temp HD while we trend his renal function tests and continue conversation regarding dialysis dependence, other. (O) Vitals reviewed in the EMR (prior assessment from yesterday) General: In no apparent distress, Cooperative HEENT: Atraumatic, Normocephalic Neck: Supple Respiratory: Normal air movement, Diminished Cardiovascular: Regular rate/rhythm, Edema Gastrointestinal: No tenderness, No guarding, Other (Obese) Musculoskeletal: No tenderness, Swelling Integumentary: No warmth, Skin lesion Neurological: Normal speech, Normal tone, Normal affect Laboratory Data (last 24 hrs) Reviewed in the EMR Conclusions/Impression: A/P) 1. Suspected progressive advanced CKD, now V in the setting of malignant HTN/nephrosclerosis +/- other primary glomerulopathy, non compliance, other. Labs even in 2018 showed then Cr level elevated and with urine studies showing macroalbuminuria. Bur of course can not rule out entirely ARF on CKD process but no specific reports of urinary retention (renal u/s pending, u/s from 2018 showed preserved renal sizes then). Did obtain urine studies to assess for active sediment, re-assess proteinuria, and notable proteinuria is present although can also be seen with just renal sclerosis. Renal imaging shows some decrease in renal sizes c/w 2018 and reports of increased renal echogenicity 2. K level remains ok and while pt does have metab acidosis with sig bicarb deficit on account of his large body weight, the deficit is stable. Awaiting surgery to place a dialysis catheter (temp at this time and tunneled conversion can be later in the week when stable) who have indicated a preference to wait until Mon when OR/anesthesia available. Indications for HD discussed with pt, consent obtained 3. Hypertensive urgency improving, SBP and DBP corrected by > 25%, off cardene gtt, cont PO meds. No ARMANDO inhibitors at this time. 4. Hypoglycemia, unspecified -BG initially remained persistently < 70, so switched IVF to D10 fluids, will d/c if BG remaining > 90 5. Will cont IV lasix since hypertensive and with fluid overload. CXR with possible (cardiogenic) pulm edema but can not exclude infection. WBC elevated, any Abx per primary team Wil Singh MD, FASN
[2022-12-15] MEDS ORDERED: CEFTRIAXONE 1,000 MG in NA CHLORIDE 0.9% 50 ML IVPB ONE (11:00)
--- NOTE | 2022-12-15 21:03 | P.CNS ---
Date of Consult: 12/15/22 PC: I was asked to see this patient in regards to the placement of a temporary dialysis catheter. HPC: Patient has increasing creatinine, and signs of renal failure. He is going to require dialysis. PMHx: End-stage renal disease, appears to have sleep apnea, with a very large neck Social Hx: No known allergies Sys R: Not the best historian but says he is relatively comfortable at the moment O/E: Awake alert vital signs are stable HEENT: Has a very heavy neck, short jaw, probably in grade 4 airway Chest: Chest movement equal bilaterally Abd: Negative [place]ometown: No evidence of any clavicular fractures Impression: This patient requires temporary dialysis catheter for dialysis. I spoke to him yesterday, but he refused as he was not sure what was required for dialysis what the risks were with the complications were and generally refused the procedure. The procedure was exam explained to the patient by the motorboat mechanic inboard/outboard apparently for the second or third time, and he is now agreeing to a bulge to the procedure. I am not comfortable doing it in the ICU bed, as this gentleman has a lot of risks due to his BMI and airway issues. Plan: I am going to take him down to the operating room to do this with anesthesia. To do this in the ICU, with the patient's size, potential airway issues, positioning of the patient etc. would I feel be suboptimal. I I will get him to the operating room in the morning, and hopefully we will be able to get the catheter placed, position verified, and he will be able to initiate his dialysis.
[2022-12-16] MEDS: WATER IV SCH ×2 (01:41)
[2022-12-16] MEDS: FUROSEMIDE 40 MG/4 ML VIAL IV SCH ×3 (01:41→16:25)
[2022-12-16] MEDS: DEXTROSE IV SCH ×2 (01:41)
[2022-12-16] MEDS: NA BICARB IV SCH ×2 (01:41)
[2022-12-16 04:42] LABS: Hepatitis B Core IgM Nonreactive (Nonreactive); Hepatitis B surface AG Interp. Nonreactive (Nonreactive)
[2022-12-16 04:43] LABS: Hepatitis B Surface Ab - Quant < 3.10 mIU/mL (<8.0)
--- NOTE | 2022-12-16 06:05 | P.PN ---
Date of Service: 12/15/22 Subjective Patient is clinically doing well. Patient denies any new complaints. He feels much better. He initially did not want to do hemodialysis but he is agreeable at this time. Dialysis catheter for in AM. Physical Examination - Vital Signs Reviewed - Physical Exam General: Alert, In no apparent distress, Obese, Other (Patient is fairly lethargic) Respiratory: Clear to auscultation bilaterally, Normal air movement Cardiovascular: Regular rate/rhythm, Normal S1 S2, No murmurs Gastrointestinal: Normal bowel sounds, Soft and benign, Non-distended, No tenderness Musculoskeletal: No clubbing, No swelling, No tenderness Integumentary: No significant abnormalities Neurological: No focal deficits at this time Assessment & Plan - Problems (Diagnosis) (1) PASCALE (acute kidney injury) Onset Date: 06/12/18 Current Visit: No Status: Acute (2) Malignant diastolic hypertension with CHF, NYHA class 2 Current Visit: No Status: Acute (3) Hypoglycemia due to insulin Current Visit: Yes Status: Acute (4) Metabolic acidosis Current Visit: Yes Status: Acute (5) Hypocalcemia Current Visit: Yes Status: Acute (6) Morbid obesity Current Visit: Yes Status: Acute (7) Hypertensive emergency Current Visit: Yes Status: Acute (8) Obesity hypoventilation syndrome Current Visit: Yes Status: Acute - Plan Continue with plan of care as mentioned below: 1. Continue with bicarb drip; acidosis slightly improved 2. Continue with persistent dextrose until blood sugars are elevated; sugars have stabilized 3. Arrangements for hemodialysis completed 4. Monitor multiple electrolyte abnormalities 5. Nicardipine drip has been weaned off 6. Echocardiogram for in the morning 7. Renal ultrasound has been reviewed 8. BiPAP at night-patient is refusing 9. GI and DVT prophylaxis - Advance Directives Does patient have a Living Will: No Does patient have a Durable POA for Healthcare: No
--- NOTE | 2022-12-16 06:07 | P.PN ---
Date of Service: 12/16/22 Subjective Patient denies any new complaints. Clinically he is doing better. Plans for hemodialysis in the morning. Physical Examination - Vital Signs Reviewed - Physical Exam General: Alert, In no apparent distress, Obese, Other (Patient is fairly lethargic) Respiratory: Clear to auscultation bilaterally, Normal air movement Cardiovascular: Regular rate/rhythm, Normal S1 S2, No murmurs Gastrointestinal: Normal bowel sounds, Soft and benign, Non-distended, No tenderness Neurological: No focal deficits at this time Assessment & Plan - Problems (Diagnosis) (1) PASCALE (acute kidney injury); chronic kidney disease most likey from nephroscle rosis from poorly controlled hypertensive Onset Date: 06/12/18 Current Visit: No Status: Acute (2) Malignant diastolic hypertension with CHF, NYHA class 2 Current Visit: No Status: Acute (3) Hypoglycemia due to insulin Current Visit: Yes Status: Acute (4) Metabolic acidosis Current Visit: Yes Status: Acute (5) Hypocalcemia Current Visit: Yes Status: Acute (6) Morbid obesity Current Visit: Yes Status: Acute (7) Hypertensive emergency Current Visit: Yes Status: Acute (8) Obesity hypoventilation syndrome Current Visit: Yes Status: Acute - Plan Continue with plan of care as mentioned below: 1. Labs pending. We will probably discontinue bicarb drip today after hemodialysis is started 2. Blood sugars are improved 3. Arrangements for hemodialysis completed 4. Monitor multiple electrolyte abnormalities 5. Nicardipine drip has been weaned off; blood pressure stable on oral medicines 6. Echocardiogram for today 7. Renal ultrasound has been reviewed 8. BiPAP at night-patient is refusing; would recommend outpatient sleep study 9. GI and DVT prophylaxis - Advance Directives Does patient have a Living Will: No Does patient have a Durable POA for Healthcare: No
--- NOTE | 2022-12-16 08:01 | P.PN ---
Renal note (S) Pt remains in the ICU, no distress, denies dyspnea, remains on D10 + sodium bicarb IVF at low rate. UOP acceptable on IV lasix, labs pending (O) Vitals reviewed in the EMR General: In no apparent distress, Cooperative HEENT: Atraumatic, Normocephalic Neck: Supple Respiratory: Normal air movement, Diminished at bases Cardiovascular: Regular rate/rhythm, Edema Gastrointestinal: No tenderness, No guarding, Other (Obese) Musculoskeletal: No tenderness, non pitting swelling of the LE Integumentary: No warmth, chronic dermal changes, xerosis, Rt plantar callous, deep Neurological: Normal speech, Normal tone, Normal affect Laboratory Data (last 24 hrs) Reviewed in the EMR Conclusions/Impression: A/P) 1. Suspected progressive advanced CKD, possibly V in the setting of malignant HTN/nephrosclerosis +/- other primary glomerulopathy, non compliance, other. Labs even in 2018 showed then Cr level elevated and with urine studies showing macroalbuminuria. Bur of course can not rule out entirely ARF on CKD process but no specific reports of urinary retention (renal u/s pending, u/s from 2018 showed preserved renal sizes then). Did obtain urine studies to assess for active sediment, re-assess proteinuria, and notable proteinuria is present although can also be seen with just renal sclerosis. Renal imaging shows some decrease in renal sizes c/w 2018 and reports of increased renal echogenicity 2. K level remains ok and while pt does have metab acidosis with sig bicarb deficit on account of his large body weight, the deficit is stable. Awaiting surgery to place a dialysis catheter (temp at this time and tunneled conversion can be later in the week when stable and leukocytosis improved/resolved and if on going HD required) today in OR/with anesthesia available. Indications for HD discussed with pt, consent obtained 3. Hypertensive urgency improving, SBP and DBP corrected by > 25%, off cardene gtt, cont PO meds. No ARMANDO inhibitors at this time. 4. Hypoglycemia, unspecified -BG initially remained persistently < 70, so switched IVF to D10 fluids, will d/c if BG remaining > 90 5. Will cont IV lasix since hypertensive and with fluid overload. CXR with possible (cardiogenic) pulm edema but can not exclude infection. 6. 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
[2022-12-16 08:19] LABS: Hematocrit 28.4 % (39.6-49.0); Lymphocytes % 13.2 % (15.3-44.8); MCV 77.9 fL (80-100); MPV 7.6 fL (7.6-11.3); RBC Red Blood Cell Count 3.64 M/uL (4.33-5.43)
[2022-12-16] MEDS: AMLODIPINE 10 MG TAB PO SCH (08:36)
[2022-12-16] MEDS: CALCITROL 0.25 MCG CAP PO SCH (08:36)
[2022-12-16] MEDS: CALCIUM ACETATE 667 MG TAB PO SCH ×3 (08:36→16:26)
[2022-12-16] MEDS: MAGNESIUM OXIDE 400 MG TAB PO SCH (08:37)
[2022-12-16] MEDS: HYDRALAZINE HCL 25 MG TABLET PO SCH ×3 (08:37→21:00)
[2022-12-16 08:57] LABS: AST/SGOT 12 U/L (15-37); Albumin 2.3 g/dL (3.4-5.0); Alkaline Phosphatase 59 U/L (45-117); BUN Blood Urea Nitrogen 77 mg/dL (7-18); Bicarbonate 21 mEq/L (21-32); Bilirubin Total 0.3 mg/dL (0.2-1.0); Glomerular Filtration Rate 7 ml/min (=/>90); Glucose Level 85 mg/dL (74-106); Magnesium 1.4 mg/dL (1.6-2.4); NT PRO-BNP 5781 pg/mL (<125); Potassium 4.2 mEq/L (3.5-5.1); Protein, Total 6.9 g/dL (6.4-8.2); Sodium Level 139 mEq/L (136-145)
[2022-12-16 08:58] LABS: ALT/SGPT < 10 U/L (16-61)
[2022-12-16] MEDS: D10W 250 ML IV SCH ×2 (09:38→16:35)
[2022-12-16] MEDS ORDERED: Magnesium Sulfate 2gm IVPB 2 G/50 ML BAG IV ONE (11:00)
[2022-12-16] MEDS ORDERED: CALCIUM GLUCONATE 1 GM IVPB 2 GM/100 ML BAG IV ONE (11:00)
--- NOTE | 2022-12-16 12:08 | EKG ---
Test Date: 2022-12-14 Test Time: 08:08:37 Property Management Assistant: BP MEASUREMENT RESULTS: Intervals: Rate: 87 MA: 142 QRSD: 98 QT: 408 QTc: 490 [place]: P: 57 MA: 142 QRS: 27 T: 75 INTERPRETIVE STATEMENTS: Normal sinus rhythm Normal ECG Compared to ECG 06/11/2018 19:12:10 Sinus tachycardia no longer present T-wave abnormality no longer present Electronically Signed On 12-16-22 12:01:13 CDT by Israel Tsang
[2022-12-16] MEDS ORDERED: NS 0.9% VIAL 20 ML ONE (12:50)
[2022-12-16] MEDS: NA CHLORIDE 0.9% 500 ML ONE ×2 (13:10→13:25)
[2022-12-16] MEDS: LIDOCAINE 1% MPF 30 ML VIAL ONE ×2 (13:33→14:01)
[2022-12-16] MEDS ORDERED: propofoL 200 MG/20 ML VIAL IV ONE ×2 (13:40→13:41)
[2022-12-16] MEDS ORDERED: LIDOCAINE 2% MPF 5 ML VIAL ONE (13:41)
[2022-12-16] MEDS ORDERED: SUCCINYLCHOLINE 20 MG/ML (10 ML) IV ONE (13:48)
--- NOTE | 2022-12-16 14:28 | P.OP ---
Preoperative diagnosis: Renal failure Postoperative diagnosis: The same Primary procedure: Insertion of left subclavian temporary dialysis catheter Secondary procedure: Fluoroscopy Anesthesia: General Estimated blood loss: Less than 10 cc Operative Technique: The patient brought the operating room and placed supine on the table with a roll between the shoulders. After the induction and controlled airway by anesthesia, the area of the left upper chest was prepped with a chlorhexidine solution, he was draped in usual aseptic manner. Attention was turned towards the left upper chest. With the finger in the sternal notch, we were able to come out laterally and using a finder needle to cannulate the left subclavian vein. A guidewire was passed down through our needle. Fluoroscopy was used to verify we were in this left subclavian vein, sweeping to the atrium. The needle was withdrawn, leaving the wire in place. The insertion site was dilated using the 2 dilators. Then with a modified Seldinger technique, the catheter was placed. It was then sutured in place and a sterile dressing applied. At the end of the procedure he was in a stable condition was sent to the recovery room. A chest x-ray is pending. Complications: None Transferred to: Recovery Room Condition: Good
--- NOTE | 2022-12-16 15:06 | RAD REPORT ---
[facility] 2:49 pm CLINICAL HISTORY: Device placement/central venous catheter placement IMPRESSION: Central venous catheter has been placed into the proximal superior vena cava. No pneumothorax
--- NOTE | 2022-12-16 15:07 | RAD REPORT ---
EXAM DESCRIPTION: RAD - Fluoroscopy <1 Hour - 12/16/2022 2:50 pm CLINICAL HISTORY: Device placement central venous catheter placement FINDINGS: A central venous catheter was placed into the superior vena cava. Two fluoroscopic spot im ages are submitted. Fluoroscopy time 0 minutes The examination was performed by Dr. Pak
[2022-12-16] MEDS: VITAMIN D 5,000 UNIT CAP PO SCH (16:25)
[2022-12-16] MEDS ORDERED: WATER FOR INJ,STERILE 10 ML ONE (18:41)
[2022-12-16] MEDS ORDERED: ALTEPLASE 2 MG/VIAL IV ONE (19:00)
[2022-12-16] MEDS: ISOSORBIDE DINIT 20 MG TAB PO SCH (21:00)
[2022-12-17] MEDS: D10W 250 ML IV SCH (00:38)
[2022-12-17] MEDS: FUROSEMIDE 40 MG/4 ML VIAL IV SCH ×3 (01:08→17:44)
[2022-12-17 07:22] LABS: Absolute Lymphocytes (CBC) 1.6 K/uL (0.7-4.9); Hematocrit 28.5 % (39.6-49.0); Lymphocytes % 13.1 % (15.3-44.8); MCV 77.4 fL (80-100); MPV 7.6 fL (7.6-11.3); Magnesium 1.7 mg/dL (1.6-2.4); Potassium 3.9 mEq/L (3.5-5.1); RBC Red Blood Cell Count 3.69 M/uL (4.33-5.43)
[2022-12-17] MEDS ORDERED: VANCOMYCIN 1 GM in NA CHLORIDE 0.9% 250 ML IVPB ONE (08:00)
[2022-12-17] MEDS: VITAMIN D 5,000 UNIT CAP PO SCH (09:20)
[2022-12-17] MEDS: CALCIUM ACETATE 667 MG TAB PO SCH ×3 (09:20→17:44)
[2022-12-17] MEDS: CALCITROL 0.25 MCG CAP PO SCH (09:20)
[2022-12-17] MEDS: AMLODIPINE 10 MG TAB PO SCH (10:57)
[2022-12-17] MEDS: HYDRALAZINE HCL 25 MG TABLET PO SCH ×3 (10:57→21:36)
[2022-12-17] MEDS: ISOSORBIDE DINIT 20 MG TAB PO SCH ×3 (11:25→21:36)
[2022-12-17] MEDS ORDERED: MAGNESIUM SULFATE 1 gm IVPB 1 GM/100 ML BAG IV ONE (11:53)
--- NOTE | 2022-12-17 15:14 | P.PN ---
Renal note (S) Pt s/p Lt SC temp dialysis catheter yesterday, catheter not working well on HD, finally after catheter manipulation at bedside by surgery were able to get through initial HD however this AM, HD RN unable to get catheter to work so treatment aborted. Pt is producing some urine, he denies any acute complaints (O) Vitals reviewed in the EMR General: In no apparent distress, Cooperative HEENT: Atraumatic, Normocephalic Neck: Supple, Lt SC dialysis catheter Respiratory: Normal air movement, Diminished at bases Cardiovascular: Regular rate/rhythm, Edema Gastrointestinal: No tenderness, No guarding, Other (Obese) Musculoskeletal: No tenderness, non pitting swelling of the LE Integumentary: No warmth, chronic dermal changes, xerosis, Rt plantar callous, deep Neurological: Normal speech, Normal tone, Normal affect Laboratory Data (last 24 hrs) Reviewed in the EMR Conclusions/Impression: A/P) 1. Suspected progressive advanced CKD, possibly V in the setting of malignant HTN/nephrosclerosis +/- other primary glomerulopathy, non compliance, other. Labs even in 2018 showed then Cr level elevated and with urine studies showing macroalbuminuria. Bur of course can not rule out entirely ARF on CKD process but no specific reports of urinary retention (renal u/s pending, u/s from 2018 show ed preserved renal sizes then). Did obtain urine studies to assess for active sediment, re-assess proteinuria, and notable proteinuria is present although can also be seen with just renal sclerosis. Renal imaging shows some decrease in renal sizes c/w 2018 and reports of increased renal echogenicity 2. K level remains ok and while pt did initially have metab acidosis with sig bicarb deficit on account of his large body weight, the deficit improved post HD. Surgery has placed a temp dialysis catheter at this time and tunneled conversion can be considered later in the week when stable and leukocytosis improved/resolved and if on going HD required. Catheter did not work well today, metab profile on labs stable so will re-assess tmrw. 3. Hypertensive urgency on admission resolved, off any drips, cont PO meds. No ARMANDO inhibitors at this time. 4. Hypoglycemia, unspecified on admission -resolved 5. Will cont IV lasix since hypertensive and with fluid overload. CXR with possible (cardiogenic) pulm edema but can not exclude infection. Clinically stable 6. 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 Mg being repleted. Wil Singh MD, ABBI
[2022-12-17] MEDS: FERROUS SULFATE 325 MG TAB PO SCH (21:36)
[2022-12-18] MEDS: FUROSEMIDE 40 MG/4 ML VIAL IV SCH ×3 (00:27→17:00)
[2022-12-18 06:05] LABS: Absolute Lymphocytes (CBC) 1.9 K/uL (0.7-4.9); Hematocrit 27.5 % (39.6-49.0); Lymphocytes % 13.1 % (15.3-44.8); MCV 78.1 fL (80-100); MPV 7.5 fL (7.6-11.3); RBC Red Blood Cell Count 3.52 M/uL (4.33-5.43)
[2022-12-18 06:29] LABS: Albumin 2.3 g/dL (3.4-5.0); Bilirubin Total 0.3 mg/dL (0.2-1.0); Protein, Total 6.7 g/dL (6.4-8.2)
--- NOTE | 2022-12-18 08:47 | ECHO ---
HEIGHT: 5 ft 10 in WEIGHT: 370 lb 0 oz DATE OF STUDY: 12/17/[address]: Jorje Case MD 2-DIMENSIONAL: YES M.MODE: YES DOPPLER: YES COLOR FLOW: YES TDS: NO PORTABLE: YES DEFINITY: NO BUBBLE STUDY: NO DIAGNOSIS: CONGESTIVE HEART FAILURE CARDIAC HISTORY: CATHERIZATION: NO SURGERY: NO PROSTHETIC VALVE: NO PACEMAKER: NO MEASUREMENTS (cm) DIASTOLIC (NORMALS) SYSTOLIC (NORMALS) IVSd 1.5 (0.6-1.2) LA Diam 4.0 (1.9-4.0) LVEF 69% LVIDd 5.7 (3.5-5.7) LVIDs 3.5 (2.0-3.5) %FS 39% LVPWd 1.6 (0.6-1.2) Ao Diam 3.3 (2.0-3.7) 2 DIMENSIONAL ASSESSMENT: RIGHT ATRIUM: NORMAL LEFT ATRIUM: NORMAL RIGHT VENTRICLE: NORMAL LEFT VENTRICLE: LEFT VENTRICULAR HYPERTROPHY TRICUSPID VALVE: NORMAL MITRAL VALVE: NORMAL PULMONIC VALVE: NORMAL AORTIC VALVE: NORMAL PERICARDIAL EFFUSION: SMALL AORTIC ROOT: NORMAL LEFT VENTRICULAR WALL MOTION: NORMAL LEFT VENTRICULAR EJECTION FRACTION. DECREASED LEFT VENTRICULAR COMPLIANCE. DOPPLER/COLOR FLOW: DECREASED LEFT VENTRICULAR COMPLIANCE. COMMENTS: 1. LEFT VENTRICULAR HYPERTROPHY. NORMAL LEFT VENTRICULAR EJECTION FRACTION. 2. DIASTOLIC DYSFUNCTION. 3. SMALL PERICARDIAL EFFUSION. TECHNOLOGIST: JASON CORDOVA
[2022-12-18] MEDS: HYDRALAZINE HCL 25 MG TABLET PO SCH ×3 (10:15→19:57)
[2022-12-18] MEDS: FERROUS SULFATE 325 MG TAB PO SCH ×2 (10:15→19:57)
[2022-12-18] MEDS: CALCITROL 0.25 MCG CAP PO SCH (10:15)
[2022-12-18] MEDS: ISOSORBIDE DINIT 20 MG TAB PO SCH ×3 (10:15→21:17)
[2022-12-18] MEDS: CALCIUM ACETATE 667 MG TAB PO SCH ×3 (10:15→17:00)
[2022-12-18] MEDS: VITAMIN D 5,000 UNIT CAP PO SCH (10:16)
[2022-12-18] MEDS: AMLODIPINE 10 MG TAB PO SCH (10:16)
--- NOTE | 2022-12-18 11:35 | P.PN ---
Renal note (S) 12/17 Pt s/p Lt SC temp dialysis catheter yesterday, catheter not working well on HD, finally after catheter manipulation at bedside by surgery were able to get through initial HD however this AM, HD RN unable to get catheter to work so treatment aborted. Pt is producing some urine, he denies any acute complaints 12/18: Still producing urine, feels better overall, denies dyspnea, abd pain, N/V but discussed with pt that renal function tests no better (off HD). (O) Vitals reviewed in the EMR General: In no apparent distress, Cooperative HEENT: Atraumatic, Normocephalic Neck: Supple, Lt SC dialysis catheter Respiratory: Normal air movement, Diminished at bases Cardiovascular: Regular rate/rhythm, Edema (improved) Gastrointestinal: No tenderness, No guarding, Other (Obese) Musculoskeletal: No tenderness, non pitting swelling of the LE Integumentary: No warmth, chronic dermal changes, xerosis, Rt plantar callous, deep Neurological: Normal speech, Normal tone, Normal affect Laboratory Data (last 24 hrs) Reviewed in the EMR Conclusions/Impression: A/P) 1. Suspected progressive advanced CKD, possibly V in the setting of malignant HTN/nephrosclerosis +/- other primary glomerulopathy, non compliance, other. Labs even in 2018 showed then Cr level elevated and with urine studies showing macroalbuminuria. Bur of course can not rule out entirely ARF on CKD process but no specific reports of urinary retention (renal u/s pending, u/s from 2018 showed preserved renal sizes then). Did obtain urine studies to assess for active sediment, re-assess proteinuria, and notable proteinuria is present although can also be seen with just renal sclerosis. Renal imaging shows some decrease in renal sizes c/w 2018 and reports of increased renal echogenicity Cr level remains substantially elevated, discussed with pt that proceeding with OP HD (in ARF status) would be recommended via TDC and can determine over the following weeks if he remains dialysis dependent. 2. Lt SC temp dialysis catheter has been working poorly and for OP HD, pt will require TDC placement which Dr. Marion does not perform so will consult Dr. Cuba if available. 3. Hypertensive urgency on admission resolved, off any drips, cont PO meds. No ARMANDO inhibitors at this time. 4. Hypoglycemia, unspecified on admission -resolved 5. Will cont lasix since hypertensive and with fluid overload on admission. CXR with possible (cardiogenic) pulm edema but can not exclude infection. Clinically stable and fluid status improved 6. 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 Mg also repleted. Wil Singh MD, ABBI
[2022-12-18] MEDS: VANCOMYCIN 1 GM in NA CHLORIDE 0.9% 250 ML IVPB SCH (19:57)
[2022-12-19] MEDS: FUROSEMIDE 40 MG/4 ML VIAL IV SCH ×3 (01:25→17:23)
[2022-12-19 07:04] LABS: Hematocrit 27.9 % (39.6-49.0); Lymphocytes % 13.6 % (15.3-44.8); MCV 78.5 fL (80-100); MPV 7.5 fL (7.6-11.3); RBC Red Blood Cell Count 3.55 M/uL (4.33-5.43)
[2022-12-19 07:22] LABS: Albumin 2.5 g/dL (3.4-5.0); Bilirubin Total 0.4 mg/dL (0.2-1.0); Magnesium 1.8 mg/dL (1.6-2.4); Potassium 3.7 mEq/L (3.5-5.1); Protein, Total 7.1 g/dL (6.4-8.2)
[2022-12-19] MEDS ORDERED: MAGNESIUM SULFATE 1 gm IVPB 1 GM/100 ML BAG IV ONE (09:00)
[2022-12-19] MEDS ORDERED: POTASSIUM CL SA 10 MEQ TAB PO ONE (09:00)
[2022-12-19] MEDS: AMLODIPINE 10 MG TAB PO SCH (09:21)
[2022-12-19] MEDS: CALCITROL 0.25 MCG CAP PO SCH (09:21)
[2022-12-19] MEDS: CALCIUM ACETATE 667 MG TAB PO SCH ×3 (09:22→17:25)
[2022-12-19] MEDS: HYDRALAZINE HCL 25 MG TABLET PO SCH ×3 (09:22→21:12)
[2022-12-19] MEDS: VITAMIN D 5,000 UNIT CAP PO SCH (09:22)
[2022-12-19] MEDS: FERROUS SULFATE 325 MG TAB PO SCH ×2 (09:22→21:12)
[2022-12-19] MEDS: ISOSORBIDE DINIT 20 MG TAB PO SCH ×3 (09:31→21:13)
[2022-12-19] MEDS: CHLORHEXIDINE GLUCO 4% 120 ML TOP SCH (10:44)
[2022-12-19] MEDS ORDERED: VANCOMYCIN 500 MG in NA CHLORIDE 0.9% 100 ML IVPB ONE (10:45)
--- NOTE | 2022-12-19 10:59 | P.PN ---
Renal note (S) 12/17 Pt s/p Lt SC temp dialysis catheter yesterday, catheter not working well on HD, finally after catheter manipulation at bedside by surgery were able to get through initial HD however this AM, HD RN unable to get catheter to work so treatment aborted. Pt is producing some urine, he denies any acute complaints 12/18: Still producing urine, feels better overall, denies dyspnea, abd pain, N/V but discussed with pt that renal function tests no better (off HD). 12/19: No acute complaints, did received some HD yesterday as Lt SC CVC worked a bit better to allow for dialysis. Plan for TDC conversion and OP HD again discussed in detail, pt agreeable to plan (O) Vitals reviewed in the EMR General: In no apparent distress, Cooperative HEENT: Atraumatic, Normocephalic Neck: Supple, Lt SC dialysis catheter Respiratory: Normal air movement, Diminished at bases Cardiovascular: Regular rate/rhythm, Edema (improved) Gastrointestinal: No tenderness, No guarding, Other (Obese) Musculoskeletal: No tenderness, non pitting swelling of the LE Integumentary: No warmth, chronic dermal changes, xerosis, Rt plantar callous, deep Neurological: Normal speech, Normal tone, Normal affect Laboratory Data (last 24 hrs) Reviewed in the EMR Conclusions/Impression: A/P) 1. Suspected progressive advanced CKD, possibly V in the setting of malignant HTN/nephrosclerosis +/- other primary glomerulopathy, non compliance, other. Labs even in 2018 showed then Cr level elevated and with urine studies showing macroalbuminuria. Bur of course can not rule out entirely ARF on CKD process but no specific reports of urinary retention (renal u/s pending, u/s from 2018 showed preserved renal sizes then). Did obtain urine studies to assess for active sediment, re-assess proteinuria, and notable proteinuria is present although can also be seen with just renal sclerosis. Renal imaging shows some decrease in renal sizes c/w 2018 and reports of increased renal echogenicity Cr level remains substantially elevated, discussed with pt that proceeding with OP HD (in ARF status) would be recommended via TDC and can determine over the following weeks if he remains dialysis dependent. 2. Lt SC temp dialysis catheter has been working poorly and for OP HD, pt will require TDC placement which Dr. Marion does not perform so did consult Dr. Cartwright. WBC trending down, BCx neg, Vanc level noted after maintenance dose yesterday, will dose additional 500 mg IV prior to procedure. Will order MRSA decolonization as it did grown from g/s on his Lt plantar DFU wound 3. Hypertensive urgency on admission resolved, off any drips, cont PO meds. No ARMANDO inhibitors at this time. 4. Hypoglycemia, unspecified on admission -resolved 5. Will cont lasix since hypertensive and with fluid overload on admission. CXR with possible (cardiogenic) pulm edema but can not exclude infection. Clinically stable and fluid status improved 6. 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 Mg also repleted. Wil Singh MD, ABBI
[2022-12-19] MEDS: Mupirocin NASAL 2 APPL/1 GM TUBE NAS SCH ×2 (11:00→21:14)
[2022-12-19] MEDS ORDERED: NA CHLORIDE 0.9% 500 ML ONE (11:12)
[2022-12-19] MEDS ORDERED: NA CHLORIDE 0.9% 50 ML ONE (11:52)
[2022-12-19] MEDS ORDERED: LIDOCAINE HCL/EPINEPHRINE 20 ML MDV ONE (11:52)
[2022-12-19] MEDS ORDERED: BUPIVACAINE 0.25% PF 30 ML VIAL ONE (11:52)
[2022-12-19] MEDS ORDERED: HEPARIN 5000 UNIT/ML 1 ML VIAL ONE (11:52)
--- NOTE | 2022-12-19 13:43 | P.OP ---
Preoperative diagnosis: End Stage Renal Disease Postoperative diagnosis: End Stage Renal Disease Primary procedure: Insertion of Tunnelled RIGHT Internal Jugular Hemodialysis Catheter Secondary procedure: Ultrasound and Fluoroscopy with interpretation Anesthesia: GETA + Local Estimated blood loss: <10cc Specimen: none Findings: dark non-pulsatile blood, cath @ SVC Complications: None Implants: 24cm curved hemosplit catheter Transferred to: Recovery Room Condition: Good
--- NOTE | 2022-12-19 13:53 | RAD REPORT ---
EXAM DESCRIPTION: RAD - Fluoroscopy <1 Hour - 12/19/2022 1:45 pm CLINICAL HISTORY: Venous catheter insertion. HEMODIALYSIS CATHETER PLACEMENT COMPARISON: Fluoroscopy <1 Hour dated 12/16/2022 FINDINGS: Fluoroscopy time: 0.1 minutes
--- NOTE | 2022-12-19 14:11 | RAD REPORT ---
EXAM DESCRIPTION: RAD - Chest Single View - 12/19/2022 2:04 pm CLINICAL HISTORY: s/p R HD cath placement, r/o pneumothorax Chest pain. COMPARISON: <Comparisons> FINDINGS: Portable technique limits examination quality. The lungs are grossly clear. The heart is moderately enlarged. Right-sided venous catheter is in plac e. No pneumothorax. Left-sided central venous catheter also present tip in the SVC. IMPRESSION: No postprocedure pneumothorax.
--- NOTE | 2022-12-19 14:14 | OP ---
Date of Procedure: 12/19/2022 Surgeon: Tyrone Mejia MD, Preoperative Diagnosis: End-stage renal disease. Postoperative Diagnosis: End-stage renal disease. Procedure Performed: Insertion of tunneled right internal jugular hemodialysis catheter using fluoro scopy and ultrasound guidance with interpretation. Anesthesia: General endotracheal plus local with 0.25% Marcaine. Estimated Blood Loss: Less than 10 cc. Specimen: None. Findings: Dark nonpulsatile blood returned. Catheter was at the SVC confluence. Complications: None. Implants: A 24 cm curved HemoSplit catheter. Disposition: The patient was transferred to the recovery room in good condition. Procedure In Detail: After informed consent was obtained, the patient was brought to the operating r oom, prepped and draped in the usual sterile fashion after adequate anesthesia was achieved. The pat ient was placed in steep Trendelenburg position. I anesthetized an area of the right internal jugula r vein using ultrasound guidance. I cannulated the internal jugular vein on the first attempt. Micr owire was advanced at this point. Fluoroscopy confirmed position of the right atrium. I then made a small thompson incision overlying the insertion site and placed the microintroducer sheath. At this poi nt, microwire was removed. Standard wire was advanced at this point. Fluoroscopy once again confirm ed position of the wire in the confluence of the SVC and at the right atrium. At this point, I tunne led the catheter on the right chest wall at the infraclavicular position passing the catheter up thro ugh the insertion site at this point and the curve was oriented properly. At this point, I then perf ormed sequential dilatation using Seldinger technique over the wire and placed the introducer sheath at this point. Wire out was called at this point and I advanced the catheter at this point under flu oroscopic guidance into the confluence of the SVC. Dark red nonpulsatile blood returned throughout t he procedure and both ports easily pulled back dark red nonpulsatile blood and I flushed it quite eas marcia with sterile saline and then they were packed with heparin super flush at this point. The area w as irrigated. The patient was taken out of Trendelenburg position. X-ray confirmed position of the catheter in the right position. There was no pneumothorax evident on the fluoroscopic images. I sec ured the catheter to the chest wall with three 2-0 and 3-0 nylon sutures and the insertion site was c losed with a single interrupted 3-0 nylon suture and a sterile dressing placed over top. The patient tolerated the procedure well without evidence of complication and transferred to PACU in good condit ion. All counts were correct at the end of the case. MARKIE/JACQUELINE Voice ID: [id number] Report ID: [id number]
[2022-12-19] MEDS: METOPROLOL TAR 50 MG TAB PO SCH (17:22)
[2022-12-20] MEDS: FUROSEMIDE 40 MG/4 ML VIAL IV SCH (01:15)
--- NOTE | 2022-12-20 03:04 | P.PN ---
Date of Service: 12/19/22 Subjective Patient is clinically doing much better. Continue with hemodialysis. Tesio catheter has been replaced. Patient does have insurance information that he has given to us and we will leave it for case management. Patient is trying to get set up for outpatient hemodialysis. Physical Examination - Vital Signs Reviewed - Physical Exam General: Alert, In no apparent distress, Obese, Other (Patient is fairly lethargic) Respiratory: Clear to auscultation bilaterally, Normal air movement Cardiovascular: Regular rate/rhythm, Normal S1 S2, No murmurs Gastrointestinal: Normal bowel sounds, Soft and benign, Non-distended, No tenderness Neurological: No focal deficits at this time Assessment & Plan - Problems (Diagnosis) (1) PASCALE (acute kidney injury); chronic kidney disease most likey from nephrosclerosis from poorly controlled hypertensive Onset Date: 06/12/18 Current Visit: No Status: Acute (2) Malignant diastolic hypertension with CHF, NYHA class 2 Current Visit: No Status: Acute (3) Hypoglycemia due to insulin Current Visit: Yes Status: Acute (4) Metabolic acidosis Current Visit: Yes Status: Acute (5) Hypocalcemia Current Visit: Yes Status: Acute (6) Morbid obesity Current Visit: Yes Status: Acute (7) Hypertensive emergency Current Visit: Yes Status: Acute (8) Obesity hypoventilation syndrome Current Visit: Yes Status: Acute - Plan Continue with plan of care as mentioned below: 1. Continue with hemodialysis per nephrology; arrange for outpatient hemodialysis. Patient does have insurance information 2. Blood sugars are improved 3. Arrangements for hemodialysis completed 4. Monitor multiple electrolyte abnormalities 5. Nicardipine drip has been weaned off; blood pressure stable on oral medicines 6. Echocardiogram for today 7. Renal ultrasound has been reviewed 8. BiPAP at night-patient is refusing; would recommend outpatient sleep study 9. GI and DVT prophylaxis - Advance Directives Does patient have a Living Will: No Does patient have a Durable POA for Healthcare: No
--- NOTE | 2022-12-20 03:06 | P.PN ---
Date of Service: 12/18/22 Subjective Patient continues to improve. Clinical symptoms are much better. Hemodialysis catheter is not functioning at times. Surgery consulted. Physical Examination - Vital Signs Reviewed - Physical Exam General: Alert, In no apparent distress, Obese, Other (Patient is fairly lethargic) Respiratory: Clear to auscultation bilaterally, Normal air movement Cardiovascular: Regular rate/rhythm, Normal S1 S2, No murmurs Gastrointestinal: Normal bowel sounds, Soft and benign, Non-distended, No tenderness Neurological: No focal deficits at this time Assessment & Plan - Problems (Diagnosis) (1) PASCALE (acute kidney injury); chronic kidney disease most likey from nephrosclerosis from poorly controlled hypertensive Onset Date: 06/12/18 Current Visit: No Status: Acute (2) Malignant diastolic hypertension with CHF, NYHA class 2 Current Visit: No Status: Acute (3) Hypoglycemia due to insulin Current Visit: Yes Status: Acute (4) Metabolic acidosis Current Visit: Yes Status: Acute (5) Hypocalcemia Current Visit: Yes Status: Acute (6) Morbid obesity Current Visit: Yes Status: Acute (7) Hypertensive emergency Current Visit: Yes Status: Acute (8) Obesity hypoventilation syndrome Current Visit: Yes Status: Acute - Plan Continue with plan of care as mentioned below: 1. Continue with hemodialysis per nephrology; arrange for outpatient hemodialysis. Patient does have insurance information; left with charge nurse at night 2. Blood sugars are improved; hypoglycemia resolved after HD 3. Arrangements for hemodialysis completed 4. Monitor multiple electrolyte abnormalities 5. Nicardipine drip was DC'd; blood pressure stable on oral medicines 6. Echocardiogram pending 7. Renal ultrasound has been reviewed 8. BiPAP at night-patient is refusing; would recommend outpatient sleep study 9. GI and DVT prophylaxis - Advance Directives Does patient have a Living Will: No Does patient have a Durable POA for Healthcare: No
--- NOTE | 2022-12-20 03:07 | P.PN ---
Date of Service: 12/17/22 Subjective Patient is clinically doing well. Patient denies any new complaints. Plan to restart HD Physical Examination - Vital Signs Reviewed - Physical Exam General: Alert, In no apparent distress, Obese, Other (Patient is fairly lethargic) Respiratory: Clear to auscultation bilaterally, Normal air movement Cardiovascular: Regular rate/rhythm, Normal S1 S2, No murmurs Gastrointestinal: Normal bowel sounds, Soft and benign, Non-distended, No tenderness Neurological: No focal deficits at this time Assessment & Plan - Problems (Diagnosis) (1) PASCALE (acute kidney injury); chronic kidney disease most likey from nephrosclerosis from poorly controlled hypertensive Onset Date: 06/12/18 Current Visit: No Status: Acute (2) Malignant diastolic hypertension with CHF, NYHA class 2 Current Visit: No Status: Acute (3) Hypoglycemia due to insulin Current Visit: Yes Status: Acute (4) Metabolic acidosis Current Visit: Yes Status: Acute (5) Hypocalcemia Current Visit: Yes Status: Acute (6) Morbid obesity Current Visit: Yes Status: Acute (7) Hypertensive emergency Current Visit: Yes Status: Acute (8) Obesity hypoventilation syndrome Current Visit: Yes Status: Acute - Plan Continue with plan of care as mentioned below: 1. Continue with hemodialysis per nephrology; 2. BS are improved; hypoglycemia resolved after HD 3. Arrangements for hemodialysis completed 4. Monitor multiple electrolyte abnormalities 5. Nicardipine drip was DC'd; blood pressure stable on oral medicines 6. Echocardiogram pending 7. Renal ultrasound has been reviewed 8. BiPAP at night-patient is refusing; would recommend outpatient sleep study 9. GI and DVT prophylaxis - Advance Directives Does patient have a Living Will: No Does patient have a Durable POA for Healthcare: No
[2022-12-20 05:08] LABS: Magnesium 1.8 mg/dL (1.6-2.4); Potassium 4.2 mEq/L (3.5-5.1)
[2022-12-20] MEDS: METOPROLOL TAR 50 MG TAB PO SCH ×2 (05:12→16:47)
--- NOTE | 2022-12-20 06:56 | P.CNS ---
Date of Consult: 12/20/22 Reason for Consult: right foot wound Chief Complaint: Hypoglycemia; Acute on CKD; ESRD History of Present Illness: Right foot wound for several months being treated with alana and tinactin Allergies iodine Adverse Reaction (Mild, Verified 12/17/22 11:26) gas shellfish derived Adverse Reaction (Verified 12/17/22 11:26) gas Home Medications: Amlodipine [Norvasc*] 10 mg PO DAILY 06/12/18 Insulin Degludec [Tresiba Flextouch U-100] 36 units SQ DAILY 06/12/18 Losartan Potassium [Cozaar] 100 mg PO DAILY 06/12/18 Amlodipine [Norvasc*] 10 mg PO DAILY #30 tab 06/13/18 Terazosin HCl [Hytrin*] 4 mg PO BID #120 cap 06/13/18 carvediloL [Coreg*] 25 mg PO BID #60 tab 06/13/18 - Past Medical/Surgical History Diabetic: Yes -: IDDM -: HTN - Family History Father Medical History: Hypertension, Diabetes Mother Medical History: Hypertension, Diabetes - Social History Alcohol use: Yes CD- Drugs: No Caffeine use: Yes Place of Residence: Home Review of Systems 10-point ROS is otherwise unremarkable Physical Examination Temp Pulse Resp BP Pulse Ox 97.7 F 96 H 16 128/71 96 12/20/22 04:00 12/20/22 05:12 12/20/22 04:00 12/20/22 05:12 12/20/22 04:00 General: Alert, In no apparent distress, Oriented x3 Cardiovascular: No edema, Normal pulses Capillary refill: <2 Seconds Musculoskeletal: No clubbing, No swelling, No contractures, No erythema, No tenderness, No warmth Integumentary: No rashes, No tenderness/swelling, No erythema, No warmth, No cyanosis, Skin breakdown (Wound plantar aspect of right forefoot with hyperkeratosis and granular base measuring 0.4cmX7.5cmX0.4cm with no purulence or signs of infection) Neurological: Abnormal sensation - Problems (1) Type 1 diabetes mellitus with diabetic polyneuropathy Current Visit: Yes Status: Acute (2) Type 1 diabetes mellitus with diabetic chronic kidney disease Current Visit: Yes Status: Acute (3) Type 1 diabetes mellitus with foot ulcer Current Visit: Yes Status: Acute (4) Xerosis cutis Current Visit: Yes Status: Acute Conclusions/Impression: Hydrogel to wound while an inpatient daily. Upon d/c [facility]. Would benefit from Urea cream to area bid Physician Review: Patient Assessed, Agree with Above Assessment and Plan Critical Care: No Time Spent Managing Pts care (In Minutes): 30
[2022-12-20] MEDS ORDERED: CHLORHEXIDINE GLUCO 4% 120 ML TOP SCH (09:00)
[2022-12-20] MEDS: CHLORHEXIDINE GLUCO 4% 120 ML TOP SCH (09:00)
[2022-12-20] MEDS: CALCITROL 0.25 MCG CAP PO SCH (09:18)
[2022-12-20] MEDS: AMLODIPINE 10 MG TAB PO SCH (09:18)
[2022-12-20] MEDS: CALCIUM ACETATE 667 MG TAB PO SCH ×3 (09:18→16:47)
[2022-12-20] MEDS: HYDRALAZINE HCL 25 MG TABLET PO SCH ×3 (09:18→20:01)
[2022-12-20] MEDS: FUROSEMIDE 40 MG TABLET PO SCH ×2 (09:18→16:47)
[2022-12-20] MEDS: VITAMIN D 5,000 UNIT CAP PO SCH (09:18)
[2022-12-20] MEDS: FERROUS SULFATE 325 MG TAB PO SCH ×2 (09:18→20:01)
[2022-12-20] MEDS: Mupirocin NASAL 2 APPL/1 GM TUBE NAS SCH ×2 (09:19→20:01)
[2022-12-20] MEDS: ISOSORBIDE DINIT 20 MG TAB PO SCH ×3 (09:19→20:01)
[2022-12-20] MEDS: VANCOMYCIN 1 GM in NA CHLORIDE 0.9% 250 ML IVPB SCH (14:42)
--- NOTE | 2022-12-20 16:19 | CON ---
Date of Consultation: 12/19/2022 Brief History Of Present Illness: Patient is a 42-year-old gentleman with a history of chronic kidne y disease, diabetes, hypertension, morbid obesity, BMI greater than 50, who presents with severe hype rglycemia refractory to multiple doses of medication, had some workup at this point and was found to have acute worsening of his kidney dysfunction. As such, Dr. Marion was consulted to place a tempor yovani hemodialysis catheter to see if he would resolve his acute kidney injury and avoid need for long- term hemodialysis. He was started on hemodialysis. There was some difficulty with catheter usage at this point, and as such, his kidney function continued to worsen. As such, I am consulted for place ment of permanent hemodialysis catheter. Past Medical History: Significant for diabetes, hypertension, morbid obesity, CKD. Past Surgical History: Denies. Allergies: NO KNOWN DRUG ALLERGIES. Home Medications: Include Norvasc, Tresiba, Cozaar, Hytrin Coreg. Family History: Significant for hypertension, diabetes, and obesity. Past Surgical History: No surgical history as described above. Social History: He denies smoking, drinks alcohol recreationally. Denies recreational drug use. Review of Systems: 10-point review of systems other than HPI, denies. Physical Examination: General: At the time of my examination, temperature 98, blood pressure 190/100, pulse 90, respirator y rate 18, SpO2 of 95% on room air. General: He is awake, alert, and oriented. Psychiatric: Appropriate conversive. HEENT: He is normocephalic. Sclerae are anicteric. Mucous membranes are moist. Oropharynx is cecille r. Neck: Supple without JVD. Cardiovascular: Regular rate and rhythm. Pulmonary: Clear to auscultation bilaterally. Abdomen: Soft. Skin: Warm and dry generally. Lines/Tubes: He has a left subclavian nontunneled hemodialysis catheter in place currently. Laboratory Data: Revealed a white blood cell count of 14.5, hemoglobin is 8.7, hematocrit 27.9, plat elet count was 426. His chemistry showed a sodium 140, potassium 3.7, chloride 108, carbon dioxide 2 7, BUN 41, creatinine 6.2. His calcium is 7.3. Phosphorus 4.0, magnesium 1.8. Total bilirubin 0.4, AST 12, ALT 11, alkaline phosphatase 67. Assessment/plan: This is a 42-year-old male who comes in with acute on chronic kidney injury, multip le medical issues as described above. 1.Continue medical management per primary team. 2.I have explained the risks, benefits, and alternatives to placement of a tunneled hemodialysis cat heter including, but not limited to bleeding, infection, damage to surrounding tissues, need for furt her operation procedures, pneumothorax, perioperative complications, catheter dysfunction, blood clot s, strokes, heart attacks. Patient agrees to proceed as indicated. TK/MODL Voice ID: [id number] Report ID: [id number]
--- NOTE | 2022-12-20 16:35 | P.PN ---
Renal note (S) 12/17 Pt s/p Lt SC temp dialysis catheter yesterday, catheter not working well on HD, finally after catheter manipulation at bedside by surgery were able to get through initial HD however this AM, HD RN unable to get catheter to work so treatment aborted. Pt is producing some urine, he denies any acute complaints 12/18: Still producing urine, feels better overall, denies dyspnea, abd pain, N/V but discussed with pt that renal function tests no better (off HD). 12/19: No acute complaints, did received some HD yesterday as Lt SC CVC worked a bit better to allow for dialysis. Plan for TDC conversion and OP HD again discussed in detail, pt agreeable to plan 12/20: Delayed entry note, pt seen earlier this AM, on HD, TDC working well (O) Vitals reviewed in the EMR General: In no apparent distress, Cooperative HEENT: Atraumatic, Normocephalic Neck: Supple, Lt SC dialysis catheter, Rt IJ TDC Respiratory: Normal air movement, Diminished at bases Cardiovascular: Regular rate/rhythm, Edema (improved) Gastrointestinal: No tenderness, No guarding, Other (Obese) Musculoskeletal: No tenderness, non pitting swelling of the LE Integumentary: No warmth, chronic dermal changes, xerosis, Rt plantar callous, deep Neurological: Normal speech, Normal tone, Normal affect Laboratory Data (last 24 hrs) Reviewed in the EMR Conclusions/Impression: A/P) 1. Suspected progressive advanced CKD, possibly V in the setting of malignant HTN/nephrosclerosis +/- other primary glomerulopathy, non compliance, other. Labs even in 2018 showed then Cr level elevated and with urine studies showing macroalbuminuria. Bur of course can not rule out entirely ARF on CKD process but no specific reports of urinary retention (renal u/s pending, u/s from 2018 showed preserved renal sizes then). Did obtain urine studies to assess for active sediment, re-assess proteinuria, and notable proteinuria is present alth ough can also be seen with just renal sclerosis. Renal imaging shows some decrease in renal sizes c/w 2018 and reports of increased renal echogenicity Cr level remains substantially elevated, discussed with pt that proceeding with OP HD (in ARF status) would be recommended via TDC and can determine over the following weeks if he remains dialysis dependent. Awaiting OP chair time confirmation pending financial clearance 2. Lt SC temp dialysis catheter had been working poorly and for OP HD, pt would require TDC placement which was placed yesterday. D/c Lt SC temp dialysis catheter Cont Vanc Abx coverage for now. Did also order MRSA decolonization 3. Hypertensive urgency on admission resolved, off any drips, cont PO meds, BP remains labile. No ARMANDO inhibitors at this time. 4. Hypoglycemia, unspecified on admission -resolved 5. Will cont lasix since hypertensive and with fluid overload on admission. CXR with possible (cardiogenic) pulm edema but can not exclude infection. Clinically stable and fluid status improved. Switched to PO lasix 6. 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 Mg also repleted. Wil Singh MD, ABBI
[2022-12-21] MEDS: METOPROLOL TAR 50 MG TAB PO SCH ×2 (05:32→17:08)
[2022-12-21 06:22] LABS: Absolute Lymphocytes (CBC) 1.6 K/uL (0.7-4.9); Hematocrit 27.6 % (39.6-49.0); Lymphocytes % 11.1 % (15.3-44.8); MCV 79.5 fL (80-100); MPV 7.1 fL (7.6-11.3); RBC Red Blood Cell Count 3.47 M/uL (4.33-5.43)
[2022-12-21 06:54] LABS: Albumin 2.6 g/dL (3.4-5.0); Bilirubin Total 0.3 mg/dL (0.2-1.0); Magnesium 1.9 mg/dL (1.6-2.4); Potassium 4.3 mEq/L (3.5-5.1); Protein, Total 7.3 g/dL (6.4-8.2)
[2022-12-21] MEDS: HYDRALAZINE HCL 25 MG TABLET PO SCH ×3 (08:34→20:55)
[2022-12-21] MEDS: AMLODIPINE 10 MG TAB PO SCH (08:34)
[2022-12-21] MEDS: CALCIUM ACETATE 667 MG TAB PO SCH ×3 (08:34→17:08)
[2022-12-21] MEDS: FERROUS SULFATE 325 MG TAB PO SCH ×2 (08:34→20:55)
[2022-12-21] MEDS: CALCITROL 0.25 MCG CAP PO SCH (08:34)
[2022-12-21] MEDS: FUROSEMIDE 40 MG TABLET PO SCH ×2 (08:34→17:08)
[2022-12-21] MEDS: VITAMIN D 5,000 UNIT CAP PO SCH (08:34)
[2022-12-21] MEDS: CHLORHEXIDINE GLUCO 4% 120 ML TOP SCH (08:35)
[2022-12-21] MEDS: ISOSORBIDE DINIT 20 MG TAB PO SCH ×3 (08:39→20:55)
[2022-12-21] MEDS: Mupirocin NASAL 2 APPL/1 GM TUBE NAS SCH ×2 (08:39→21:01)
--- NOTE | 2022-12-21 12:35 | PN ---
Subjective: A 42-year-old male seen in room 232 at [facility]. Patient is alert, awake and comfortable. His breathing has improved. He has had 2 dialysis sessions he states and he says that he is feeling better. His catheter on the right side looks clean. Patient denies any other new issues. Denies any headache. Denies any nausea or vomiting. States that he has had d iabetes for a long time. He has had blood pressures for long time. States that recently the blood p ressure is running as high as 200 range, which is somewhat improved now. Patient's blood pressure cu rrently has been running between 120 to 150. He does seem to have significant volume overload still and has been dialyzed twice and the plan is to dialyze him again on Friday while he is waiting to get placement for dialysis pending his insurance approvals and related matters. Objective: Vital Signs: Currently seems stable. Blood pressure 154/72, last recorded pulse is abou t 70 to 80 and regular, respirations around 18 to 20. Patient is afebrile. O2 saturations are 96% o n room air. Lungs: Clear anteriorly. Abdomen: Soft. Extremities: Reveal significant edema and venous stasis skin changes. Patient also has a dressing o n his right foot. He states that he has had wounds there for a long time and they are currently dres sed. Laboratory Data: Reviewed. WBC count is 14.8, hemoglobin 8.4, hematocrit 27.6, platelet count is 43 7. Chemistries: Sodium 138, potassium 4.3, chloride is 107, bicarb is 29, BUN is 35, creatinine 6.0 2. His calcium is 7.5. Magnesium at 1.9. AST 16, ALT is 13, alkaline phosphatase is 78. ProBNP is at 3145. Albumin at 2.6. TSH at 4.4 on December 16. PTH intact was 530.8 on December 14. B12 was 432 on December 16. Cortisone level was 18.63 on December 16. Assessment And Plan: Patient with progressive chronic kidney disease, at this point is dialysis depe ndent. Dialysis catheter has been placed. Question hypertensive nephrosclerosis/diabetic nephropath y. Patient is going to be needing dialysis given his current condition and he has had 2 treatments w ith some improvement in his breathing and overall condition. He seems to be still quite volume overl oaded. We will continue to dialyze with current catheter. Will need to have a stable tunneled getachew ter and also dialysis placement for discharge planning. Discharge perhaps next week assuming his blo od pressure, volume status and clinical condition stays stable. /JACQUELINE Voice ID: [id number] Report ID: [id number]
[2022-12-22] MEDS: METOPROLOL TAR 50 MG TAB PO SCH ×2 (05:34→17:43)
[2022-12-22] MEDS: CALCIUM ACETATE 667 MG TAB PO SCH ×3 (07:31→16:11)
[2022-12-22] MEDS: FUROSEMIDE 40 MG TABLET PO SCH ×2 (08:57→16:11)
[2022-12-22] MEDS: CALCITROL 0.25 MCG CAP PO SCH (08:57)
[2022-12-22] MEDS: VITAMIN D 5,000 UNIT CAP PO SCH (08:58)
[2022-12-22] MEDS: HYDRALAZINE HCL 25 MG TABLET PO SCH ×4 (08:58→20:23)
[2022-12-22] MEDS: AMLODIPINE 10 MG TAB PO SCH (08:58)
[2022-12-22] MEDS: FERROUS SULFATE 325 MG TAB PO SCH ×2 (08:58→20:23)
[2022-12-22] MEDS: ISOSORBIDE DINIT 20 MG TAB PO SCH ×3 (08:58→20:23)
[2022-12-22] MEDS: Mupirocin NASAL 2 APPL/1 GM TUBE NAS SCH ×2 (08:59→20:23)
[2022-12-22] MEDS: CHLORHEXIDINE GLUCO 4% 120 ML TOP SCH (08:59)
[2022-12-22] MEDS ORDERED: FUROSEMIDE 40 MG/4 ML VIAL IV ONE (13:34)
--- NOTE | 2022-12-22 14:17 | PN ---
Date of Progress Note: 12/22/2022 Subjective: The patient is seen on second floor in room 232. He looks well. Denies any significant increase in shortness of breath. He is being treated for his wound on the right foot. He feels ove rall well. Lab work is reviewed. Objective: Vital Signs: The patient's vitals reviewed. Vitals show blood pressure has been running slightly on the higher side between 140 systolic to 180. Last blood pressure is 180/97. Pulse is 8 9, respirations are around 16. Pain level was recorded at 0. O2 sats are 95% on room air. Lungs: Clear anteriorly, but difficult to assess well given his body habitus. Extremities: Reveal positive 3 to 4 edema bilaterally. Heart: Sounds are regular. Laboratory Data: Reviewed. The patient's labs show WBC count of 14.8, hemoglobin and hematocrit of 8.4 and 27.6, platelet count of 437 from yesterday. Chemistry shows sodium at 138, potassium 4.3, ch loride is 107, bicarb is 29, BUN is 35, creatinine 6.02. This is also from yesterday. Assessment And Plan: The patient with dialysis dependent, significant volume overload, has been star charisse on dialysis. Clinically looking well. Slightly higher blood pressure. Some volume overload asim oing. Continue with Lasix at current dose, give an additional 80 mg of IV Lasix now. We will increa se hydralazine to 50 mg p.o. t.i.d. with holding parameters to hold for systolic blood pressure less than 120. Plan to dialyze tomorrow. /JACQUELINE Voice ID: [id number] Report ID: [id number]
--- NOTE | 2022-12-22 14:57 | P.PN ---
Date of Service: 12/21/22 Subjective Patient well with no new complaints. Clinical symptoms continue to improve. Physical Examination - Vital Signs Reviewed - Physical Exam General: Alert, In no apparent distress, Obese, Other (Patient is fairly lethargic) Respiratory: Clear to auscultation bilaterally, Normal air movement Cardiovascular: Regular rate/rhythm, Normal S1 S2, No murmurs Gastrointestinal: Normal bowel sounds, Soft and benign, Non-distended, No tenderness Neurological: No focal deficits at this time Assessment & Plan - Problems (Diagnosis) (1) PASCALE (acute kidney injury); chronic kidney disease most likey from nephrosclerosis from poorly controlled hypertensive Onset Date: 06/12/18 Current Visit: No Status: Acute (2) Malignant diastolic hypertension with CHF, NYHA class 2 Current Visit: No Status: Acute (3) Hypoglycemia due to insulin Current Visit: Yes Status: Acute (4) Metabolic acidosis Current Visit: Yes Status: Acute (5) Hypocalcemia Current Visit: Yes Status: Acute (6) Morbid obesity Current Visit: Yes Status: Acute (7) Hypertensive emergency Current Visit: Yes Status: Acute (8) Obesity hypoventilation syndrome Current Visit: Yes Status: Acute - Plan Continue with plan of care as mentioned below: 1. Continue with hemodialysis per nephrology; for outpatient hemodialysis. 2. BS are improved; hypoglycemia resolved after HD 3. BP stable 4. Continue monitoring electrolytes closely 5. GI and DVT prophylaxis - Advance Directives Does patient have a Living Will: No Does patient have a Durable POA for Healthcare: No
--- NOTE | 2022-12-22 14:57 | P.PN ---
Date of Service: 12/20/22 Subjective Patient is clinically doing well. Arranging for outpt HD Physical Examination - Vital Signs Reviewed - Physical Exam General: Alert, In no apparent distress, Obese, Other (Patient is fairly lethargic) Respiratory: Clear to auscultation bilaterally, Normal air movement Cardiovascular: Regular rate/rhythm, Normal S1 S2, No murmurs Gastrointestinal: Normal bowel sounds, Soft and benign, Non-distended, No tenderness Neurological: No focal deficits at this time Assessment & Plan - Problems (Diagnosis) (1) PASCALE (acute kidney injury); chronic kidney disease most likey from nephrosclerosis from poorly controlled hypertensive Onset Date: 06/12/18 Current Visit: No Status: Acute (2) Malignant diastolic hypertension with CHF, NYHA class 2 Current Visit: No Status: Acute (3) Hypoglycemia due to insulin Current Visit: Yes Status: Acute (4) Metabolic acidosis Current Visit: Yes Status: Acute (5) Hypocalcemia Current Visit: Yes Status: Acute (6) Morbid obesity Current Visit: Yes Status: Acute (7) Hypertensive emergency Current Visit: Yes Status: Acute (8) Obesity hypoventilation syndrome Current Visit: Yes Status: Acute - Plan Continue with plan of care as mentioned below: 1. Continue with hemodialysis per nephrology; 2. BS are improved; hypoglycemia resolved after HD 3. Arrangements for outpt hemodialysis pending 4. BP stable 6. Echocardiogram reviewed 7. GI and DVT prophylaxis - Advance Directives Does patient have a Living Will: No Does patient have a Durable POA for Healthcare: No
--- NOTE | 2022-12-22 14:58 | P.PN ---
Date of Service: 12/22/22 Subjective Patient denies any new complaints. Anticipating discharge over the next 24 to 48 hours once we get connected with outpatient hemodialysis. Physical Examination - Vital Signs Reviewed - Physical Exam General: Alert, In no apparent distress, Obese, Respiratory: Clear to auscultation bilaterally, Cardiovascular: Regular rate/rhythm, Normal S1 S2, No murmurs Gastrointestinal: Normal bowel sounds, Soft and benign, Non-distended, No tenderness Neurological: No focal deficits at this time Assessment & Plan - Problems (Diagnosis) (1) PASCALE (acute kidney injury); chronic kidney disease most likey from nephrosclerosis from poorly controlled hypertensive Onset Date: 06/12/18 Current Visit: No Status: Acute (2) Malignant diastolic hypertension with CHF, NYHA class 2 Current Visit: No Status: Acute (3) Hypoglycemia due to insulin Current Visit: Yes Status: Acute (4) Metabolic acidosis Current Visit: Yes Status: Acute (5) Hypocalcemia Current Visit: Yes Status: Acute (6) Morbid obesity Current Visit: Yes Status: Acute (7) Hypertensive emergency Current Visit: Yes Status: Acute (8) Obesity hypoventilation syndrome Current Visit: Yes Status: Acute - Plan Continue with plan of care as mentioned below: 1. Continue with HD per nephrology; for outpatient HD. 2. BS are improved; hypoglycemia resolved after HD 3. BP stable 4. Continue monitoring electrolytes closely 5. GI and DVT prophylaxis - Advance Directives Does patient have a Living Will: No Does patient have a Durable POA for Healthcare: No
[2022-12-23] MEDS ORDERED: ONDANSETRON 4 MG (ODT) TAB PO PRN (02:43)
--- NOTE | 2022-12-23 02:46 | P.PN ---
Date of Service: 12/23/22 Subjective Patient is clinically stable with no new complaints. At this time, we are arranging for rehab placement. Physical Examination - Vital Signs Reviewed - Physical Exam General: Alert, In no apparent distress, Obese, Respiratory: Clear to auscultation bilaterally, Cardiovascular: Regular rate/rhythm, Normal S1 S2, No murmurs Gastrointestinal: Normal bowel sounds, Soft and benign, Non-distended, No tenderness Neurological: No focal deficits at this time Assessment & Plan - Problems (Diagnosis) (1) PASCALE (acute kidney injury); chronic kidney disease most likey from nephrosclerosis from poorly controlled hypertensive Onset Date: 06/12/18 Current Visit: No Status: Acute (2) Malignant diastolic hypertension with CHF, NYHA class 2 Current Visit: No Status: Acute (3) Hypoglycemia due to insulin Current Visit: Yes Status: Acute (4) Metabolic acidosis Current Visit: Yes Status: Acute (5) Hypocalcemia Current Visit: Yes Status: Acute (6) Morbid obesity Current Visit: Yes Status: Acute (7) Hypertensive emergency Current Visit: Yes Status: Acute (8) Obesity hypoventilation syndrome Current Visit: Yes Status: Acute - Plan Continue with plan of care as mentioned below: 1. Continue with HD per nephrology; arrangements for outpatient HD. 2. BS are stable; hypoglycemia is resolved after HD 3. BP is stable 4. Continue monitoring electrolytes closely 5. GI and DVT prophylaxis - Advance Directives Does patient have a Living Will: No Does patient have a Durable POA for Healthcare: No
[2022-12-23 05:11] LABS: Absolute Lymphocytes (CBC) 2.2 K/uL (0.7-4.9); Hematocrit 26.1 % (39.6-49.0); Lymphocytes % 17.6 % (15.3-44.8); MPV 7.2 fL (7.6-11.3); RBC Red Blood Cell Count 3.26 M/uL (4.33-5.43)
[2022-12-23 05:44] LABS: Magnesium 1.8 mg/dL (1.6-2.4); Potassium 4.6 mEq/L (3.5-5.1)
[2022-12-23] MEDS: METOPROLOL TAR 50 MG TAB PO SCH (05:45)
[2022-12-23] MEDS: CALCITROL 0.25 MCG CAP PO SCH (08:24)
[2022-12-23] MEDS: CALCIUM ACETATE 667 MG TAB PO SCH ×3 (08:24→16:37)
[2022-12-23] MEDS: VITAMIN D 5,000 UNIT CAP PO SCH (08:24)
[2022-12-23] MEDS: FUROSEMIDE 40 MG TABLET PO SCH ×2 (08:26→16:36)
[2022-12-23] MEDS: FERROUS SULFATE 325 MG TAB PO SCH ×2 (08:26→21:16)
[2022-12-23] MEDS: ISOSORBIDE DINIT 20 MG TAB PO SCH ×3 (08:26→21:16)
[2022-12-23] MEDS: Mupirocin NASAL 2 APPL/1 GM TUBE NAS SCH ×2 (08:27→21:16)
[2022-12-23] MEDS: CHLORHEXIDINE GLUCO 4% 120 ML TOP SCH (08:27)
[2022-12-23] MEDS: HYDRALAZINE HCL 25 MG TABLET PO SCH ×3 (09:00→21:16)
[2022-12-23] MEDS: AMLODIPINE 10 MG TAB PO SCH (09:00)
[2022-12-23] MEDS ORDERED: EPOETIN ALFA-EPBX 10,000 UNIT/ML VIAL SQ ONE (11:20)
--- NOTE | 2022-12-23 11:25 | P.PN ---
Date of Service: 12/23/22 Vital Signs Temp Pulse Resp BP Pulse Ox 98.6 F 77 16 133/72 95 12/23/22 08:00 12/23/22 08:26 12/23/22 08:00 12/23/22 08:26 12/23/22 08:00 Medications Acetaminophen (Acetaminophen 500 Mg Tab) 500 mg PO Q6H PRN PRN Reason: TEMP > 100.4' F OR MILD PAIN Amlodipine Besylate (Amlodipine 10 Mg Tab) 10 mg PO DAILY [facility] Last Admin: 12/23/22 09:00 Dose: Not Given Calcitriol (Calcitrol 0.25 Mcg Cap) 0.5 mcg PO DAILY [facility] Last Admin: 12/23/22 08:24 Dose: 0.5 mcg Calcium Acetate (Calcium Acetate 667 Mg Tab) 1,334 mg PO TIDWM [facility] Last Admin: 12/23/22 08:24 Dose: 1,334 mg Chlorhexidine Gluconate (Chlorhexidine Gluco 4% 120 Ml) 1 appl TOP DAILY [facility] Last Admin: 12/23/22 08:27 Dose: 1 appl Cholecalciferol (Vitamin D 5,000 Unit Cap) 5,000 unit PO DAILY [facility] Last Admin: 12/23/22 08:24 Dose: 5,000 unit Clonidine HCl (Clonidine Hcl 0.1 Mg Tab) 0.2 mg PO TID PRN PRN Reason: SBP>170 Last Admin: 12/22/22 13:02 Dose: 0.2 mg Ferrous Sulfate (Ferrous Sulfate 325 Mg Tab) 325 mg PO BID [facility] Last Admin: 12/23/22 08:26 Dose: 325 mg Furosemide (Furosemide 40 Mg Tablet) 40 mg PO BIDL [facility] Last Admin: 12/23/22 08:26 Dose: 40 mg Heparin Sodium (Porcine) (Heparin 1,000 Unit/Ml Vial) 2,000 unit IV EVERY HD PRN PRN Reason: Prevent HD Lines clotting Last Admin: 12/20/22 10:27 Dose: 2,000 unit Heparin Sodium (Porcine) (Heparin 1,000 Unit/Ml Vial) 4,000 unit IV EVERY HD PRN PRN Reason: FOR DIALYSIS CATHETER CARE Last Admin: 12/20/22 13:32 Dose: 4,000 unit Hydralazine HCl (Hydralazine Hcl 25 Mg Tablet) 50 mg PO TID [facility] Last Admin: 12/23/22 09:00 Dose: Not Given Vancomycin HCl 1 gm/ Sodium (Chloride) 250 mls @ 250 mls/hr IVPB AFTER EACH DIALYSIS [facility] Last Admin: 12/20/22 14:42 Dose: 250 mls/hr Isosorbide Dinitrate (Isosorbide Dinit 20 Mg Tab) 20 mg PO TID [facility] Last Admin: 12/23/22 08:26 Dose: 20 mg Metoprolol Tartrate (Metoprolol Tar 50 Mg Tab) 50 mg PO BID 6AM 6PM [facility] Last Admin: 12/23/22 05:45 Dose: 50 mg Mupirocin (Mupirocin Nasal 2 Appl/1 Gm Tube) 1 appl JOHN BID [facility] Stop: 12/23/22 21:01 Last Admin: 12/23/22 08:27 Dose: 1 appl Ondansetron HCl (Ondansetron 4 Mg (Odt) Tab) 4 mg PO Q6H PRN PRN Reason: NAUSEA / VOMITING Assessment/ Plan: Nephrology No dyspnea No chest pain No acute events overnight Vitals, medications, blood work and imaging reviewed in the chart. NAD. Obese. NCAT. MMM. Normal Respiratory Effort. S1S2. ND Abd. No C/C. LE Edema trace. No rash. AAO. Normal speech. DOPPLER/COLOR FLOW: DECREASED LEFT VENTRICULAR COMPLIANCE. COMMENTS: 1. LEFT VENTRICULAR HYPERTROPHY. NORMAL LEFT VENTRICULAR EJECTION FRACTION. 2. DIASTOLIC DYSFUNCTION. 3. SMALL PERICARDIAL EFFUSION. PASCALE suspicious for ESRD -Acute HD as ordered HTN with CKD/ CHF -Continue Metoprolol -Continue Amlodipine Diastolic CHF, A/C -Low sodium diet -Daily weight -HD with UF Anemia in chronic illness -Retacrit X1 CKD MBD -Continue Calcitriol -Continue Phoslo Laboratory Tests 12/14/22 12/14/22 12/14/22 07:23 08:26 08:35 WBC 17.50 H RBC 3.37 L Hgb 8.3 L Hct 26.4 L MCV 78.5 L MCH 24.8 L MCHC 31.5 L RDW 18.0 H Plt Count 345 MPV 7.4 L Neutrophils % 82.1 H Lymphocytes % 7.6 L Monocytes % 9.7 Eosinophils % 0.1 Basophils % 0.5 Absolute Neutrophils 14.4 H Absolute Lymphocytes 1.3 Absolute Monocytes 1.7 H Absolute Eosinophils 0.0 Absolute Basophils 0.1 PT INR APTT Sodium Potassium Chloride Carbon Dioxide Anion Gap BUN Creatinine Est GFR (CKD-EPI) Glucose POC Glucose 86 28 L* Calcium Magnesium Troponin I High Sens NT-Pro-B Natriuret Pep SARS-CoV-2 Ag (Rapid) 12/14/22 12/14/22 12/14/22 08:35 08:35 08:35 WBC RBC Hgb Hct MCV MCH MCHC RDW Plt Count MPV Neutrophils % Lymphocytes % Monocytes % Eosinophils % Basophils % Absolute Neutrophils Absolute Lymphocytes Absolute Monocytes Absolute Eosinophils Absolute Basophils PT 13.7 H INR 1.25 APTT 30.2 Sodium 137 Potassium 3.6 Chloride 111 H Carbon Dioxide 16 L Anion Gap 13.6 BUN 80 H Creatinine 9.45 H Est GFR (CKD-EPI) 6 L Glucose 32 L* POC Glucose Calcium 6.2 L* Magnesium 1.5 L Troponin I High Sens 31.8 NT-Pro-B Natriuret Pep 9066 H SARS-CoV-2 Ag (Rapid) 12/14/22 12/14/22 12/14/22 09:19 09:21 10:54 WBC RBC Hgb Hct MCV MCH MCHC RDW Plt Count MPV Neutrophils % Lymphocytes % Monocytes % Eosinophils % Basophils % Absolute Neutrophils Absolute Lymphocytes Absolute Monocytes Absolute Eosinophils Absolute Basophils PT INR APTT Sodium Potassium Chloride Carbon Dioxide Anion Gap BUN Creatinine Est GFR (CKD-EPI) Glucose POC Glucose 53 L* 29 L* Calcium Magnesium Troponin I High Sens NT-Pro-B Natriuret Pep SARS-CoV-2 Ag (Rapid) Cancelled Temp Pulse Resp BP Pulse Ox 98.6 F 77 16 133/72 95 12/23/22 08:00 12/23/22 08:26 12/23/22 08:00 12/23/22 08:26 12/23/22 08:00 Current Medications Home Medications Amlodipine [Norvasc*] 10 mg PO DAILY 06/12/18 Insulin Degludec [Tresiba Flextouch U-100] 36 units SQ DAILY 06/12/18 Losartan Potassium [Cozaar] 100 mg PO DAILY 06/12/18 Amlodipine [Norvasc*] 10 mg PO DAILY #30 tab 06/13/18 Terazosin HCl [Hytrin*] 4 mg PO BID #120 cap 06/13/18 carvediloL [Coreg*] 25 mg PO BID #60 tab 12/08/18 Medication Instructions Recorded Amlodipine [Norvasc*] 10 mg PO DAILY 06/12/18 Insulin Degludec [Tresiba 36 units SQ DAILY 06/12/18 Flextouch U-100] Losartan Potassium [Cozaar] 100 mg PO DAILY 06/12/18 Amlodipine [Norvasc*] 10 mg PO DAILY #30 tab 06/13/18 Terazosin HCl [Hytrin*] 4 mg PO BID #120 cap 06/13/18 carvediloL [Coreg*] 25 mg PO BID #60 tab 06/13/18 Vital Signs Temp Pulse Resp BP 12/14/22 11:00 85 18 194/83 H 12/14/22 10:30 81 18 202/103 H 12/14/22 10:00 86 18 198/100 H 12/14/22 09:30 88 18 229/108 H 12/14/22 09:00 80 18 199/89 H 12/14/22 08:40 81 18 166/64 H 12/14/22 07:15 97.5 F 86 19 206/92 H Medications Amlodipine Besylate (Amlodipine 10 Mg Tab) 10 mg PO DAILY [facility] Last Admin: 12/23/22 09:00 Dose: Not Given Documented by: Admin: 12/22/22 08:58 Dose: 10 mg Documented by: Admin: 12/21/22 08:34 Dose: 10 mg Documented by: Admin: 12/20/22 09:18 Dose: 10 mg Documented by: Admin: 12/19/22 09:21 Dose: 10 mg Documented by: Admin: 12/18/22 10:16 Dose: 10 mg Documented by: Admin: 12/17/22 10:57 Dose: 10 mg Documented by: Admin: 12/16/22 08:36 Dose: 10 mg Documented by: Admin: 12/15/22 08:46 Dose: 10 mg Documented by: RODRIGUEZ Calcitriol (Calcitrol 0.25 Mcg Cap) 0.5 mcg PO DAILY [facility] Last Admin: 12/23/22 08:24 Dose: 0.5 mcg Documented by: Admin: 12/22/22 08:57 Dose: 0.5 mcg Documented by: Admin: 12/21/22 08:34 Dose: 0.5 mcg Documented by: Admin: 12/20/22 09:18 Dose: 0.5 mcg Documented by: Admin: 12/19/22 09:21 Dose: 0.5 mcg Documented by: Admin: 12/18/22 10:15 Dose: 0.5 mcg Documented by: Admin: 12/17/22 09:20 Dose: 0.5 mcg Documented by: Admin: 12/16/22 08:36 Dose: 0.5 mcg Documented by: Admin: 12/15/22 08:45 Dose: 0.5 mcg Documented by: Admin: 12/14/22 15:07 Dose: 0.5 mcg Documented by: MG Calcium Acetate (Calcium Acetate 667 Mg Tab) 1,334 mg PO [facility]IDWM [facility] Admin: 12/23/22 08:24 Dose: 1,334 mg Documented by: Admin: 12/22/22 16:11 Dose: 1,334 mg Documented by: Admin: 12/22/22 11:24 Dose: 1,334 mg Documented by: Admin: 12/22/22 07:31 Dose: 1,334 mg Documented by: Admin: 12/21/22 17:08 Dose: 1,334 mg Documented by: Admin: 12/21/22 12:01 Dose: 1,334 mg Documented by: Admin: 12/21/22 08:34 Dose: 1,334 mg Documented by: Admin: 12/20/22 16:47 Dose: 1,334 mg Documented by: Admin: 12/20/22 12:00 Dose: Not Given Documented by: Admin: 12/20/22 09:18 Dose: 1,334 mg Documented by: Admin: 12/19/22 17:25 Dose: 1,334 mg Documented by: Admin: 12/19/22 17:24 Dose: Not Given Documented by: Admin: 12/19/22 09:22 Dose: 1,334 mg Documented by: Admin: 12/18/22 17:00 Dose: Not Given Documented by: Admin: 12/18/22 14:01 Dose: 1,334 mg Documented by: Admin: 12/18/22 10:15 Dose: 1,334 mg Documented by: Admin: 12/17/22 17:44 Dose: 1,334 mg Documented by: Admin: 12/17/22 12:47 Dose: 1,334 mg Documented by: Admin: 12/17/22 09:20 Dose: 1,334 mg Documented by: Admin: 12/16/22 16:26 Dose: 1,334 mg Documented by: Admin: 12/16/22 12:00 Dose: Not Given Documented by: Admin: 12/16/22 08:36 Dose: 1,334 mg Documented by: Admin: 12/15/22 17:32 Dose: 1,334 mg Documented by: Admin: 12/15/22 11:13 Dose: 1,334 mg Documented by: RODRIGUEZ Chlorhexidine Gluconate (Chlorhexidine Gluco 4% 120 Ml) 1 appl TOP DAILY [facility] Last Admin: 12/23/22 08:27 Dose: 1 appl Documented by: Admin: 12/22/22 08:59 Dose: 1 appl Documented by: Admin: 12/21/22 08:35 Dose: 1 appl Documented by: Admin: 12/20/22 09:00 Dose: 1 appl Documented by: Admin: 12/19/22 10:44 Dose: Not Given Documented by: BELKIS Cholecalciferol (Vitamin D 5,000 Unit Cap) 5,000 unit PO DAILY [facility] Last Admin: 12/23/22 08:24 Dose: 5,000 unit Documented by: Admin: 12/22/22 08:58 Dose: 5,000 unit Documented by: Admin: 12/21/22 08:34 Dose: 5,000 unit Documented by: Admin: 12/20/22 09:18 Dose: 5,000 unit Documented by: Admin: 12/19/22 09:22 Dose: 5,000 unit Documented by: Admin: 12/18/22 10:16 Dose: 5,000 unit Documented by: Admin: 12/17/22 09:20 Dose: 5,000 unit Documented by: Admin: 12/16/22 16:25 Dose: 5,000 unit Documented by: KG Clonidine HCl (Clonidine Hcl 0.1 Mg Tab) 0.2 mg PO TID PRN PRN Reason: SBP>170 Last Admin: 12/22/22 13:02 Dose: 0.2 mg Documented by: MARNIE Ferrous Sulfate (Ferrous Sulfate 325 Mg Tab) 325 mg PO BID [facility] Last Admin: 12/23/22 08:26 Dose: 325 mg Documented by: Admin: 12/22/22 20:23 Dose: 325 mg Documented by: Admin: 12/22/22 08:58 Dose: 325 mg Documented by: Admin: 12/21/22 20:55 Dose: 325 mg Documented by: Admin: 12/21/22 08:34 Dose: 325 mg Documented by: Admin: 12/20/22 20:01 Dose: 325 mg Documented by: Admin: 12/20/22 09:18 Dose: 325 mg Documented by: Admin: 12/19/22 21:12 Dose: 325 mg Documented by: Admin: 12/19/22 09:22 Dose: 325 mg Documented by: LUIS ANGEL Admin: 12/18/22 19:57 Dose: 325 mg Documented by: Admin: 12/18/22 10:15 Dose: 325 mg Documented by: Admin: 12/17/22 21:36 Dose: 325 mg Documented by: DEANNE Furosemide (Furosemide 40 Mg Tablet) 40 mg PO BIDL [facility] Last Admin: 12/23/22 08:26 Dose: 40 mg Documented by: Admin: 12/22/22 16:11 Dose: 40 mg Documented by: Admin: 12/22/22 08:57 Dose: 40 mg Documented by: Admin: 12/21/22 17:08 Dose: 40 mg Documented by: Admin: 12/21/22 08:34 Dose: 40 mg Documented by: Admin: 12/20/22 16:47 Dose: 40 mg Documented by: Admin: 12/20/22 09:18 Dose: 40 mg Documented by: BELKIS Heparin Sodium (Porcine) (Heparin 1,000 Unit/Ml Vial) 2,000 unit IV EVERY HD PRN PRN Reason: Prevent HD Lines clotting Last Admin: 12/20/22 10:27 Dose: 2,000 unit Documented by: Admin: 12/18/22 15:57 Dose: 2,000 unit Documented by: Admin: 12/17/22 10:05 Dose: 2,000 unit Documented by: Admin: 12/16/22 20:12 Dose: 2,000 unit Documented by: YOLETTE Heparin Sodium (Porcine) (Heparin 1,000 Unit/Ml Vial) 4,000 unit IV EVERY HD PRN PRN Reason: FOR DIALYSIS CATHETER CARE Last Admin: 12/20/22 13:32 Dose: 4,000 unit Documented by: Admin: 12/18/22 19:02 Dose: 4,000 unit Documented by: FNKandis Admin: 12/17/22 10:05 Dose: 4,000 unit Documented by: Admin: 12/16/22 22:46 Dose: 4,000 unit Documented by: YOLETTE Hydralazine HCl (Hydralazine Hcl 25 Mg Tablet) 50 mg PO TID [facility] Last Admin: 12/23/22 09:00 Dose: Not Given Documented by: Admin: 12/22/22 20:23 Dose: 50 mg Documented by: Admin: 12/22/22 14:25 Dose: 50 mg Documented by: MARNIE Vancomycin HCl 1 gm/ Sodium (Chloride) 250 mls @ 250 mls/hr IVPB AFTER EACH DIALYSIS [facility] Last Admin: 12/20/22 14:42 Dose: 250 mls Documented by: Admin: 12/18/22 19:57 Dose: 250 mls/hr Documented by: TITI Isosorbide Dinitrate (Isosorbide Dinit 20 Mg Tab) 20 mg PO TID [facility] Last Admin: 12/23/22 08:26 Dose: 20 mg Documented by: Admin: 12/22/22 20:23 Dose: 20 mg Documented by: Admin: 12/22/22 13:02 Dose: 20 mg Documented by: Admin: 12/22/22 08:58 Dose: 20 mg Documented by: Admin: 12/21/22 20:55 Dose: 20 mg Documented by: Admin: 12/21/22 13:53 Dose: 20 mg Documented by: Admin: 12/21/22 08:39 Dose: 20 mg Documented by: Admin: 12/20/22 20:01 Dose: 20 mg Documented by: Admin: 12/20/22 14:45 Dose: 20 mg Documented by: Admin: 12/20/22 09:19 Dose: 20 mg Documented by: Admin: 12/19/22 21:13 Dose: 20 mg Documented by: Admin: 12/19/22 17:23 Dose: Not Given Documented by: Admin: 12/19/22 09:31 Dose: 20 mg Documented by: Admin: 12/18/22 21:17 Dose: 20 mg Documented by: Admin: 12/18/22 14:01 Dose: 20 mg Documented by: Admin: 12/18/22 10:15 Dose: 20 mg Documented by: Admin: 12/17/22 21:36 Dose: 20 mg Documented by: Admin: 12/17/22 14:00 Dose: Not Given Documented by: Admin: 12/17/22 11:25 Dose: 20 mg Documented by: Admin: 12/16/22 21:00 Dose: Not Given Documented by: Admin: 12/14/22 14:00 Dose: Not Given Documented by: MG Mupirocin (Mupirocin Nasal 2 Appl/1 Gm Tube) 1 appl JOHN BID [facility] Stop: 12/23/22 21:01 Last Admin: 12/23/22 08:27 Dose: 1 appl Documented by: Admin: 12/22/22 20:23 Dose: 1 appl Documented by: Admin: 12/22/22 08:59 Dose: 1 appl Documented by: Admin: 12/21/22 21:01 Dose: 1 appl Documented by: Admin: 12/21/22 08:39 Dose: 1 appl Documented by: Admin: 12/20/22 20:01 Dose: 1 appl Documented by: Admin: 12/20/22 09:19 Dose: 1 appl Documented by: Admin: 12/19/22 21:14 Dose: 1 appl Documented by: Admin: 12/19/22 11:00 Dose: Not Given Documented by: BELKIS Laboratory Results 12/14/22 12/14/22 12/14/22 07:23 08:26 08:35 WBC 17.50 H RBC 3.37 L Hgb 8.3 L Hct 26.4 L MCV 78.5 L MCH 24.8 L MCHC 31.5 L RDW 18.0 H Plt Count 345 MPV 7.4 L Neutrophils % 82.1 H Lymphocytes % 7.6 L Monocytes % 9.7 Eosinophils % 0.1 Basophils % 0.5 Absolute Neutrophils 14.4 H Absolute Lymphocytes 1.3 Absolute Monocytes 1.7 H Absolute Eosinophils 0.0 Absolute Basophils 0.1 PT INR APTT Sodium Potassium Chloride Carbon Dioxide Anion Gap BUN Creatinine Est GFR (CKD-EPI) Glucose POC Glucose 86 28 L* Calcium Magnesium Troponin I High Sens NT-Pro-B Natriuret Pep SARS-CoV-2 Ag (Rapid) 06/04/2812/14/22 12/14/22 08:35 08:35 08:35 WBC RBC Hgb Hct MCV MCH MCHC RDW Plt Count MPV Neutrophils % Lymphocytes % Monocytes % Eosinophils % Basophils % Absolute Neutrophils Absolute Lymphocytes Absolute Monocytes Absolute Eosinophils Absolute Basophils PT 13.7 H INR 1.25 APTT 30.2 Sodium 137 Potassium 3.6 Chloride 111 H Carbon Dioxide 16 L Anion Gap 13.6 BUN 80 H Creatinine 9.45 H Est GFR (CKD-EPI) 6 L Glucose 32 L* POC Glucose Calcium 6.2 L* Magnesium 1.5 L Troponin I High Sens 31.8 NT-Pro-B Natriuret Pep 9066 H SARS-CoV-2 Ag (Rapid) 12/14/22 12/14/22 12/14/22 09:19 09:21 10:54 WBC RBC Hgb Hct MCV MCH MCHC RDW Plt Count MPV Neutrophils % Lymphocytes % Monocytes % Eosinophils % Basophils % Absolute Neutrophils Absolute Lymphocytes Absolute Monocytes Absolute Eosinophils Absolute Basophils PT INR APTT Sodium Potassium Chloride Carbon Dioxide Anion Gap BUN Creatinine Est GFR (CKD-EPI) Glucose POC Glucose 53 L* 29 L* Calcium Magnesium Troponin I High Sens NT-Pro-B Natriuret Pep SARS-CoV-2 Ag (Rapid) Cancelled Medication Prescription Medication Instructions Recorded Amlodipine [Norvasc*] 10 mg PO DAILY #30 tab 06/13/18 Terazosin HCl [Hytrin*] 4 mg PO BID #120 cap 06/13/18 carvediloL [Coreg*] 25 mg PO BID #60 tab 06/13/18 Laboratory Results WBC 17.50 thou/uL (4.3-10.9) H 12/14/22 08:35 RBC 3.37 M/uL (4.33-5.43) L 12/14/22 08:35 Hgb 8.3 g/dL (13.6-17.9) L 12/14/22 08:35 Hct 26.4 % (39.6-49.0) L 12/14/22 08:35 MCV 78.5 fL (80-100) L 12/14/22 08:35 MCH 24.8 pg (27.0-35.0) L 12/14/22 08:35 MCHC 31.5 g/dL (32.0-36.0) L 12/14/22 08:35 RDW 18.0 % (12.1-15.2) H 12/14/22 08:35 Plt Count 345 thou/uL (152-406) 12/14/22 08:35 MPV 7.4 fL (7.6-11.3) L 12/14/22 08:35 Neutrophils % 82.1 % (41.7-73.7) H 12/14/22 08:35 Lymphocytes % 7.6 % (15.3-44.8) L 12/14/22 08:35 Monocytes % 9.7 % (3.3-12.3) 12/14/22 08:35 Eosinophils % 0.1 % (0-4.4) 12/14/22 08:35 Basophils % 0.5 % (0-1.3) 12/14/22 08:35 Absolute Neutrophils 14.4 K/uL (1.8-8.0) H 12/14/22 08:35 Absolute Lymphocytes 1.3 K/uL (0.7-4.9) 12/14/22 08:35 Absolute Monocytes 1.7 K/uL (0.1-1.3) H 12/14/22 08:35 Absolute Eosinophils 0.0 K/uL (0-0.5) 12/14/22 08:35 Absolute Basophils 0.1 K/uL (0-0.5) 12/14/22 08:35 PT 13.7 SECONDS (9.5-12.5) H 12/14/22 08:35 INR 1.25 12/14/22 08:35 APTT 30.2 SECONDS (24.3-36.9) 12/14/22 08:35 Sodium 137 mEq/L (136-145) 12/14/22 08:35 Potassium 3.6 mEq/L (3.5-5.1) 12/14/22 08:35 Chloride 111 mEq/L (98-107) H 12/14/22 08:35 Carbon Dioxide 16 mEq/L (21-32) L 12/14/22 08:35 Anion Gap 13.6 mEq/L (5.0-15.0) 12/14/22 08:35 BUN 80 mg/dL (7-18) H 12/14/22 08:35 Creatinine 9.45 mg/dL (0.70-1.30) H 12/14/22 08:35 Est GFR (CKD-EPI) 6 ml/min (=/>90) L 12/14/22 08:35 Glucose 32 mg/dL (74-106) L* 12/14/22 08:35 POC Glucose 29 mg/dL (65-120) L* 12/14/22 10:54 Calcium 6.2 mg/dL (8.5-10.1) L* 12/14/22 08:35 Magnesium 1.5 mg/dL (1.6-2.4) L 12/14/22 08:35 Troponin I High Sens 31.8 pg/mL (<58.9) 12/14/22 08:35 NT-Pro-B Natriuret Pep 9066 pg/mL (<125) H 12/14/22 08:35 SARS-CoV-2 Ag (Rapid) Cancelled 12/14/22 09:19 All Active Problems Hypertensive emergency (Acute) Hypocalcemia (Acute) Hypoglycemia due to insulin (Acute) Metabolic acidosis (Acute) Morbid obesity (Acute) Obesity hypoventilation syndrome (Acute) Type 1 diabetes mellitus with diabetic chronic kidney disease (Acute) Type 1 diabetes mellitus with diabetic polyneuropathy (Acute) Type 1 diabetes mellitus with foot ulcer (Acute) Xerosis cutis (Acute) PASCALE (acute kidney injury) (Acute 06/12/18) Malignant diastolic hypertension with CHF, NYHA class 2 (Acute) Medication Instructions Recorded Amlodipine [Norvasc*] 10 mg PO DAILY 06/12/18 Insulin Degludec [Tresiba 36 units SQ DAILY 06/12/18 Flextouch U-100] Losartan Potassium [Cozaar] 100 mg PO DAILY 06/12/18 Amlodipine [Norvasc*] 10 mg PO DAILY #30 tab 06/13/18 Terazosin HCl [Hytrin*] 4 mg PO BID #120 cap 06/13/18 carvediloL [Coreg*] 25 mg PO BID #60 tab 06/13/18 Medication Instructions Recorded Amlodipine [Norvasc*] 10 mg PO DAILY 06/12/18 Insulin Degludec [Tresiba 36 units SQ DAILY 06/12/18 Flextouch U-100] Losartan Potassium [Cozaar] 100 mg PO DAILY 06/12/18 Amlodipine [Norvasc*] 10 mg PO DAILY #30 tab 06/13/18 Terazosin HCl [Hytrin*] 4 mg PO BID #120 cap 06/13/18 carvediloL [Coreg*] 25 mg PO BID #60 tab 06/13/18 Acetaminophen (Acetaminophen 500 Mg Tab) 500 mg PO Q6H PRN PRN Reason: TEMP > 100.4' F OR MILD PAIN Amlodipine Besylate (Amlodipine 10 Mg Tab) 10 mg PO DAILY [facility] Last Admin: 12/23/22 09:00 Dose: Not Given Atenolol (Atenolol 25 Mg Tab) 25 mg PO BEDTIME [facility] Calcitriol (Calcitrol 0.25 Mcg Cap) 0.5 mcg PO DAILY [facility] Last Admin: 12/23/22 08:24 Dose: 0.5 mcg Calcium Acetate (Calcium Acetate 667 Mg Tab) 1,334 mg PO TIDWM [facility] Last Admin: 12/23/22 08:24 Dose: 1,334 mg Chlorhexidine Gluconate (Chlorhexidine Gluco 4% 120 Ml) 1 appl TOP DAILY [facility] Last Admin: 12/23/22 08:27 Dose: 1 appl Cholecalciferol (Vitamin D 5,000 Unit Cap) 5,000 unit PO DAILY [facility] Last Admin: 12/23/22 08:24 Dose: 5,000 unit Clonidine HCl (Clonidine Hcl 0.1 Mg Tab) 0.2 mg PO TID PRN PRN Reason: SBP>170 Last Admin: 12/22/22 13:02 Dose: 0.2 mg Ferrous Sulfate (Ferrous Sulfate 325 Mg Tab) 325 mg PO BID [facility] Last Admin: 12/23/22 08:26 Dose: 325 mg Furosemide (Furosemide 40 Mg Tablet) 40 mg PO BIDL [facility] Last Admin: 12/23/22 08:26 Dose: 40 mg Heparin Sodium (Porcine) (Heparin 1,000 Unit/Ml Vial) 2,000 unit IV EVERY HD PRN PRN Reason: Prevent HD Lines clotting Last Admin: 12/20/22 10:27 Dose: 2,000 unit Heparin Sodium (Porcine) (Heparin 1,000 Unit/Ml Vial) 4,000 unit IV EVERY HD PRN PRN Reason: FOR DIALYSIS CATHETER CARE Last Admin: 12/20/22 13:32 Dose: 4,000 unit Hydralazine HCl (Hydralazine Hcl 25 Mg Tablet) 50 mg PO TID [facility] Last Admin: 12/23/22 09:00 Dose: Not Given Vancomycin HCl 1 gm/ Sodium (Chloride) 250 mls @ 250 mls/hr IVPB AFTER EACH DIALYSIS [facility] Last Admin: 12/20/22 14:42 Dose: 250 mls/hr Isosorbide Dinitrate (Isosorbide Dinit 20 Mg Tab) 20 mg PO TID [facility] Last Admin: 12/23/22 08:26 Dose: 20 mg Mupirocin (Mupirocin Nasal 2 Appl/1 Gm Tube) 1 appl JOHN BID [facility] Stop: 12/23/22 21:01 Last Admin: 12/23/22 08:27 Dose: 1 appl Ondansetron HCl (Ondansetron 4 Mg (Odt) Tab) 4 mg PO Q6H PRN PRN Reason: NAUSEA / VOMITING Acetaminophen (Acetaminophen 500 Mg Tab) 500 mg PO Q6H PRN PRN Reason: TEMP > 100.4' F OR MILD PAIN Amlodipine Besylate (Amlodipine 10 Mg Tab) 10 mg PO DAILY [facility] Last Admin: 12/23/22 09:00 Dose: Not Given Atenolol (Atenolol 25 Mg Tab) 25 mg PO BEDTIME [facility] Calcitriol (Calcitrol 0.25 Mcg Cap) 0.5 mcg PO DAILY [facility] Last Admin: 12/23/22 08:24 Dose: 0.5 mcg Calcium Acetate (Calcium Acetate 667 Mg Tab) 1,334 mg PO TIDWM [facility] Last Admin: 12/23/22 08:24 Dose: 1,334 mg Chlorhexidine Gluconate (Chlorhexidine Gluco 4% 120 Ml) 1 appl TOP DAILY [facility] Last Admin: 12/23/22 08:27 Dose: 1 appl Cholecalciferol (Vitamin D 5,000 Unit Cap) 5,000 unit PO DAILY [facility] Last Admin: 12/23/22 08:24 Dose: 5,000 unit Clonidine HCl (Clonidine Hcl 0.1 Mg Tab) 0.2 mg PO TID PRN PRN Reason: SBP>170 Last Admin: 12/22/22 13:02 Dose: 0.2 mg Ferrous Sulfate (Ferrous Sulfate 325 Mg Tab) 325 mg PO BID [facility] Last Admin: 12/23/22 08:26 Dose: 325 mg Furosemide (Furosemide 40 Mg Tablet) 40 mg PO BIDL [facility] Last Admin: 12/23/22 08:26 Dose: 40 mg Heparin Sodium (Porcine) (Heparin 1,000 Unit/Ml Vial) 2,000 unit IV EVERY HD PRN PRN Reason: Prevent HD Lines clotting Last Admin: 12/20/22 10:27 Dose: 2,000 unit Heparin Sodium (Porcine) (Heparin 1,000 Unit/Ml Vial) 4,000 unit IV EVERY HD PRN PRN Reason: FOR DIALYSIS CATHETER CARE Last Admin: 12/20/22 13:32 Dose: 4,000 unit Hydralazine HCl (Hydralazine Hcl 25 Mg Tablet) 50 mg PO TID [facility] Last Admin: 12/23/22 09:00 Dose: Not Given Vancomycin HCl 1 gm/ Sodium (Chloride) 250 mls @ 250 mls/hr IVPB AFTER EACH DIALYSIS [facility] Last Admin: 12/20/22 14:42 Dose: 250 mls/hr Isosorbide Dinitrate (Isosorbide Dinit 20 Mg Tab) 20 mg PO TID [facility] Last Admin: 12/23/22 08:26 Dose: 20 mg Mupirocin (Mupirocin Nasal 2 Appl/1 Gm Tube) 1 appl JOHN BID [facility] Stop: 12/23/22 21:01 Last Admin: 12/23/22 08:27 Dose: 1 appl Ondansetron HCl (Ondansetron 4 Mg (Odt) Tab) 4 mg PO Q6H PRN PRN Reason: NAUSEA / VOMITING Laboratory Tests 12/14/22 12/14/22 12/14/22 07:23 08:26 08:35 WBC 17.50 H RBC 3.37 L Hgb 8.3 L Hct 26.4 L MCV 78.5 L MCH 24.8 L MCHC 31.5 L RDW 18.0 H Plt Count 345 MPV 7.4 L Neutrophils % 82.1 H Lymphocytes % 7.6 L Monocytes % 9.7 Eosinophils % 0.1 Basophils % 0.5 Absolute Neutrophils 14.4 H Absolute Lymphocytes 1.3 Absolute Monocytes 1.7 H Absolute Eosinophils 0.0 Absolute Basophils 0.1 PT INR APTT Sodium Potassium Chloride Carbon Dioxide Anion Gap BUN Creatinine Est GFR (CKD-EPI) Glucose POC Glucose 86 28 L* Calcium Magnesium Troponin I High Sens NT-Pro-B Natriuret Pep SARS-CoV-2 Ag (Rapid) 12/14/22 12/14/22 12/14/22 08:35 08:35 08:35 WBC RBC Hgb Hct MCV MCH MCHC RDW Plt Count MPV Neutrophils % Lymphocytes % Monocytes % Eosinophils % Basophils % Absolute Neutrophils Absolute Lymphocytes Absolute Monocytes Absolute Eosinophils Absolute Basophils PT 13.7 H INR 1.25 APTT 30.2 Sodium 137 Potassium 3.6 Chloride 111 H Carbon Dioxide 16 L Anion Gap 13.6 BUN 80 H Creatinine 9.45 H Est GFR (CKD-EPI) 6 L Glucose 32 L* POC Glucose Calcium 6.2 L* Magnesium 1.5 L Troponin I High Sens 31.8 NT-Pro-B Natriuret Pep 9066 H SARS-CoV-2 Ag (Rapid) 12/14/22 12/14/22 12/14/22 09:19 09:21 10:54 WBC RBC Hgb Hct MCV MCH MCHC RDW Plt Count MPV Neutrophils % Lymphocytes % Monocytes % Eosinophils % Basophils % Absolute Neutrophils Absolute Lymphocytes Absolute Monocytes Absolute Eosinophils Absolute Basophils PT INR APTT Sodium Potassium Chloride Carbon Dioxide Anion Gap BUN Creatinine Est GFR (CKD-EPI) Glucose POC Glucose 53 L* 29 L* Calcium Magnesium Troponin I High Sens NT-Pro-B Natriuret Pep SARS-CoV-2 Ag (Rapid) Cancelled
--- NOTE | 2022-12-23 12:25 | P.OP ---
Date of Service: 12/21/22 Findings and Operative Technique Removed temporary subclavian HD cathter without incident sterile dressings applied
[2022-12-23] MEDS: VANCOMYCIN 1 GM in NA CHLORIDE 0.9% 250 ML IVPB SCH (21:15)
[2022-12-23] MEDS: atenoloL 25 MG TAB PO SCH (21:16)
[2022-12-24] MEDS: CHLORHEXIDINE GLUCO 4% 120 ML TOP SCH (09:00)
[2022-12-24] MEDS: CALCIUM ACETATE 667 MG TAB PO SCH ×3 (09:01→17:07)
[2022-12-24] MEDS: CALCITROL 0.25 MCG CAP PO SCH (09:02)
[2022-12-24] MEDS: ISOSORBIDE DINIT 20 MG TAB PO SCH ×3 (09:03→21:57)
[2022-12-24] MEDS: VITAMIN D 5,000 UNIT CAP PO SCH (09:05)
[2022-12-24] MEDS: FUROSEMIDE 40 MG TABLET PO SCH ×2 (09:05→17:08)
[2022-12-24] MEDS: HYDRALAZINE HCL 25 MG TABLET PO SCH ×3 (09:05→21:00)
[2022-12-24] MEDS: FERROUS SULFATE 325 MG TAB PO SCH ×2 (09:06→21:56)
[2022-12-24] MEDS: AMLODIPINE 10 MG TAB PO SCH (09:06)
[2022-12-24 10:36] VITALS: O2SAT 97
--- NOTE | 2022-12-24 11:04 | P.CNS ---
Date of Consult: 12/24/22 Reason for Consult: MRSA Chief Complaint: Hypoglycemia; Acute on CKD; ESRD History of Present Illness: Patient is a 42-year-old gentleman with a history of chronic kidney disease, diabetes, hypertension, morbid obesity with a BMI greater than 50, who presents to the hospital with severe hyperglycemia. Patient noted to have chronic diabetic foot wound of right foot growing MRSA. ID was consulted for MRSA of wound. Allergies iodine Adverse Reaction (Mild, Verified 12/17/22 11:26) gas shellfish derived Adverse Reaction (Verified 12/17/22 11:26) gas Home medications list reviewed: Yes Home Medications: Amlodipine [Norvasc*] 10 mg PO DAILY 06/12/18 Insulin Degludec [Tresiba Flextouch U-100] 36 units SQ DAILY 06/12/18 Losartan Potassium [Cozaar] 100 mg PO DAILY 06/12/18 Amlodipine [Norvasc*] 10 mg PO DAILY #30 tab 06/13/18 Terazosin HCl [Hytrin*] 4 mg PO BID #120 cap 06/13/18 carvediloL [Coreg*] 25 mg PO BID #60 tab 06/13/18 - Past Medical/Surgical History Diabetic: Yes -: IDDM -: HTN - Family History Father Medical History: Hypertension, Diabetes Mother Medical History: Hypertension, Diabetes - Social History Alcohol use: Yes CD- Drugs: No Caffeine use: Yes Place of Residence: Home Review of Systems 10-point ROS is otherwise unremarkable Integumentary: Other (chronic diabetic foot wound) Physical Examination Temp Pulse Resp BP Pulse Ox 97.8 F 75 16 181/86 H 97 12/24/22 08:00 12/24/22 09:06 12/24/22 08:00 12/24/22 09:06 12/24/22 08:00 General: Alert, In no apparent distress, Oriented x3 HEENT: Atraumatic, Normocephalic Neck: Supple, JVD not distended Respiratory: Clear to auscultation bilaterally, Normal air movement Cardiovascular: Normal pulses, Normal S1 S2, Edema (BLE) Gastrointestinal: Normal bowel sounds, No tenderness Musculoskeletal: No clubbing Integumentary: Diabetic ulcer (right foot) Neurological: Normal speech, Normal tone, Normal affect Laboratory Data - Reviewed Microbiology Data - Reviewed Imagings Data: - Reviewed Conclusions/Impression: Problem List CKD Hypertension Morbid Obesity Diabetes Mellitus MRSA of Wound Anemia of Chronic Disease Right Foot Diabetic Ulcer, MRSA - Chronic right foot diabetic ulcer. - Wound cultures 12/14: MRSA - Blood cultures 12/17: No growth to date - Currently on Vancomycin (started 12/18) - Leukocytosis (WBC 12.3). Afebrile. CKD/PASCALE: nephrology on case Recommendations - Continue Vancomycin given on dialysis days for 10 days - Continue wound care - Elevate right foot - Continue plan of care per primary/nephrology ID will follow patient as needed Case discussed with Rachelle Joel
--- NOTE | 2022-12-24 16:26 | P.PN ---
Subjective Date of Service: 12/24/22 Chief Complaint: Hypoglycemia; Acute on CKD; ESRD No acute events overnight. His blood pressure has been fluctuating. He states that overall he feels well. He would like to be discharged home; however, we are still waiting for an outpatient dialysis chair assignment. He denies any chest pain, palpitations, or shortness of breath. Review of Systems 10-point ROS is otherwise unremarkable Musculoskeletal: Foot Pain (right, minimal) Physical Examination - Vital Signs Temperature: 97.9 F Blood Pressure: 176/86 Pulse: 82 Respirations: 16 Pulse Ox (%): 100 - Physical Exam General: Alert, In no apparent distress, Oriented x3 HEENT: Atraumatic, Sclerae nonicteric Neck: JVD not distended (difficult to assess given habitus) Respiratory: Clear to auscultation bilaterally, Diminished Cardiovascular: No edema, Regular rate/rhythm, Normal S1 S2, No gallops, No rubs, No murmurs Gastrointestinal: Normal bowel sounds, Soft and benign, Non-distended, No tenderness, No rebound, No guarding Musculoskeletal: No clubbing Integumentary: Other (right foot covered in clean dressing) Neurological: Normal speech, Normal affect Assessment And Plan - Plan # Severe Sepsis likely secondary to Infected Right Diabetic Foot Ulcer with Methicillin-Resistant Staphylococcus Aureus and Methicillin-Sensitive Staphyloccocus Aureus - improved He initially met criteria based on HR > 90 bpm, RR > 20 breaths/min or CO2 < 32 mmHg, WBC > 12,000 and the suspected source is an infected right diabetic foot ulcer. Severe sepsis was suspected due to concern for tissue hypoperfusion/organ dysfunction based on creatinine >2.0 mg/dL (without ESRD). - Sepsis order set was initiated - Lactate trend: 1.5 -> 1.0 - Blood cultures drawn - Broad spectrum antibiotics started: Vancomycin - In regards to fluids: - 30 mL/kg of IV fluids was not administered given SBP > 90, MAP > 65, lactic acid < 4 - Infectious Diseases and Podiatry consulted - recommendations appreciated # KDIGO Stage III Acute Kidney Injury on Chronic Kidney Disease now progressed to End-Stage Renal Disease # Metabolic Acidosis # Hypocalcemia # Hypomagnesemia - Nephrology consulted - recommendations appreciated - Hemodialysis per Nephrology - Renal ultrasound = "increased renal cortical echogenicity consistent with medical renal disease. No hydronephrosis." - Monitor creatinine and urine output - Renally dose medications # Acute Decompensated Diastolic Congestive Heart Failure with Preserved Ejection Fraction - improved - Chest x-ray (12/14) = "moderately enlarged cardiopericardial silhouette with widespread airspace disease likely reflecting pulmonary edema. Consider echocardiography to exclude a pericardial effusion." - Transthoracic echocardiogram = "1. left ventricular hypertrophy. normal left ventricular ejection fraction. 2. diastolic dysfunction. 3. small pericardial effusion." - Volume removal via hemodialysis - Continue furosemide - Daily weights - Strict I/O - Cardiac diet, 1.5 L fluid restriction, 2 g Na restriction # Hypertensive Emergency - improved - Blood pressure on presentation was as high as 229/108 - Nephrology consulted - recommendations appreciated - Continue amlodipine, atenolol, hydralazine, furosemide, Isordil - Continue PRN clonidine # Hypoglycemia in Insulin-Dependent Diabetes Mellitus - resolved - Likely secondary to decreased renal clearance of insulin - Home insulin regimen discontinued - Correction scale insulin # Morbid Obesity - BMI 53.1 kg/m2 # Obesity Hypoventilation Syndrome - Stable. Monitor. Obey Esqueda M.D.
--- NOTE | 2022-12-24 21:34 | P.PN ---
Date of Service: 12/24/22 Vital Signs Temp Pulse Resp BP Pulse Ox 97.8 F 78 17 137/67 96 12/24/22 20:00 12/24/22 20:00 12/24/22 20:00 12/24/22 20:00 12/24/22 20:00 Medications Acetaminophen (Acetaminophen 500 Mg Tab) 500 mg PO Q6H PRN PRN Reason: TEMP > 100.4' F OR MILD PAIN Amlodipine Besylate (Amlodipine 10 Mg Tab) 10 mg PO DAILY [facility] Last Admin: 12/24/22 09:06 Dose: 10 mg Atenolol (Atenolol 25 Mg Tab) 25 mg PO BEDTIME [facility] Last Admin: 12/23/22 21:16 Dose: 25 mg Calcitriol (Calcitrol 0.25 Mcg Cap) 0.5 mcg PO DAILY [facility] Last Admin: 12/24/22 09:02 Dose: 0.5 mcg Calcium Acetate (Calcium Acetate 667 Mg Tab) 1,334 mg PO TIDWM [facility] Last Admin: 12/24/22 17:07 Dose: 1,334 mg Chlorhexidine Gluconate (Chlorhexidine Gluco 4% 120 Ml) 1 appl TOP DAILY [facility] Last Admin: 12/24/22 09:00 Dose: 1 appl Cholecalciferol (Vitamin D 5,000 Unit Cap) 5,000 unit PO DAILY [facility] Last Admin: 12/24/22 09:05 Dose: 5,000 unit Clonidine HCl (Clonidine Hcl 0.1 Mg Tab) 0.2 mg PO TID PRN PRN Reason: SBP>170 Last Admin: 12/22/22 13:02 Dose: 0.2 mg Ferrous Sulfate (Ferrous Sulfate 325 Mg Tab) 325 mg PO BID [facility] Last Admin: 12/24/22 09:06 Dose: 325 mg Furosemide (Furosemide 40 Mg Tablet) 40 mg PO BIDL [facility] Last Admin: 12/24/22 17:08 Dose: 40 mg Hydralazine HCl (Hydralazine Hcl 25 Mg Tablet) 50 mg PO TID [facility] Last Admin: 12/24/22 13:58 Dose: 50 mg Vancomycin HCl 1 gm/ Sodium (Chloride) 250 mls @ 250 mls/hr IVPB AFTER EACH DIALYSIS [facility] Last Admin: 12/23/22 21:15 Dose: 250 mls/hr Isosorbide Dinitrate (Isosorbide Dinit 20 Mg Tab) 20 mg PO TID [facility] Last Admin: 12/24/22 13:58 Dose: 20 mg Ondansetron HCl (Ondansetron 4 Mg (Odt) Tab) 4 mg PO Q6H PRN PRN Reason: NAUSEA / VOMITING Assessment/ Plan: Nephrology No dyspnea No chest pain No acute events overnight Vitals, medications, blood work and imaging reviewed in the chart. NAD. Obese. NCAT. MMM. Normal Respiratory Effort. S1S2. ND Abd. No C/C. LE Edema trace. No rash. AAO. Normal speech. DOPPLER/COLOR FLOW: DECREASED LEFT VENTRICULAR COMPLIANCE. 1. LEFT VENTRICULAR HYPERTROPHY. NORMAL LEFT VENTRICULAR EJECTION FRACTION. 2. DIASTOLIC DYSFUNCTION. 3. SMALL PERICARDIAL EFFUSION. Stage III PASCALE suspicious for ESRD -HD TIW HTN with CKD/ CHF -Continue Atenolol -Continue Amlodipine -Start Losartan -Discontinue Hydralazine Diastolic CHF, A/C -Low sodium diet -Daily weight -HD with UF Anemia in chronic illness -Retacrit PRN CKD MBD -Continue Calcitriol -Continue Phoslo All Active Problems Hypertensive emergency (Acute) Hypocalcemia (Acute) Hypoglycemia due to insulin (Acute) Metabolic acidosis (Acute) Morbid obesity (Acute) Obesity hypoventilation syndrome (Acute) Type 1 diabetes mellitus with diabetic chronic kidney disease (Acute) Type 1 diabetes mellitus with diabetic polyneuropathy (Acute) Type 1 diabetes mellitus with foot ulcer (Acute) Xerosis cutis (Acute) PASCALE (acute kidney injury) (Acute 06/12/18) Malignant diastolic hypertension with CHF, NYHA class 2 (Acute)
[2022-12-24] MEDS: atenoloL 25 MG TAB PO SCH (21:57)
[2022-12-25 03:53] LABS: Hematocrit 25.6 % (39.6-49.0); Lymphocytes % 16.2 % (15.3-44.8); MCV 79.9 fL (80-100); RBC Red Blood Cell Count 3.21 M/uL (4.33-5.43)
[2022-12-25 04:19] LABS: Potassium 4.4 mEq/L (3.5-5.1)
[2022-12-25] MEDS: CALCIUM ACETATE 667 MG TAB PO SCH ×3 (08:00→17:10)
[2022-12-25] MEDS: CALCITROL 0.25 MCG CAP PO SCH (09:00)
[2022-12-25] MEDS: ISOSORBIDE DINIT 20 MG TAB PO SCH ×2 (09:00→14:37)
[2022-12-25] MEDS: VITAMIN D 5,000 UNIT CAP PO SCH (09:00)
[2022-12-25] MEDS: AMLODIPINE 10 MG TAB PO SCH (09:00)
[2022-12-25] MEDS: FUROSEMIDE 40 MG TABLET PO SCH ×2 (09:00→17:09)
[2022-12-25] MEDS: CHLORHEXIDINE GLUCO 4% 120 ML TOP SCH (09:00)
[2022-12-25] MEDS ORDERED: LOSARTAN POTASSIUM 50 MG TABLET PO SCH (09:00)
[2022-12-25] MEDS: FERROUS SULFATE 325 MG TAB PO SCH (09:00)
--- NOTE | 2022-12-25 09:41 | P.PN ---
Date of Service: 12/25/22 Chief Complaint: severe hyperglycemia Subjective: No new changes. No acute events reported overnight. Patient seen and examined during dialysis, resting comfortably in bed. Denies any new complaints. Pending outpatient dialysis setup. Physical Examination Temp Pulse Resp BP Pulse Ox 98.1 F 75 18 140/76 96 12/25/22 08:00 12/25/22 08:00 12/25/22 08:00 12/25/22 08:00 12/25/22 08:00 General: Alert, In no apparent distress, Oriented x3 HEENT: Atraumatic, Normocephalic Neck: Supple, JVD not distended Respiratory: Clear to auscultation bilaterally, Normal air movement Cardiovascular: Normal pulses, Normal S1 S2, BLE edema nonpitting Gastrointestinal: Normal bowel sounds, No tenderness Musculoskeletal: No clubbing Integumentary: Diabetic ulcer of right foot, chronic. Neurological: Normal speech, Normal tone, Normal affect Laboratory Data - Reviewed Microbiology Data - Reviewed Imagings Data: - Reviewed Medication List: Reviewed Conclusions/Impression: Problem List CKD Hypertension Morbid Obesity Diabetes Mellitus MRSA of Wound Anemia of Chronic Disease Severe Sepsis Severe Sepsis Chronic Right Foot Diabetic Ulcer with MRSA and MSSA - Wound cultures 12/14: Methicillin-Resistant Staphylococcus Aureus - Blood cultures 12/17: No growth to date - Currently on Vancomycin (started 12/18) - Leukocytosis (WBC 12.3). Afebrile. CKD/PASCALE: nephrology on case Recommendations - Continue Vancomycin given on dialysis days for 10 days (started 12/18) - Continue wound care and keep leg elevated - Strict blood glucose control. Continue plan of care per primary/nephrology. ID will follow patient as needed Case discussed with Rachelle Joel
--- NOTE | 2022-12-25 15:40 | P.PN ---
Renal note (S) 12/17 Pt s/p Lt SC temp dialysis catheter yesterday, catheter not working well on HD, finally after catheter manipulation at bedside by surgery were able to get through initial HD however this AM, HD RN unable to get catheter to work so treatment aborted. Pt is producing some urine, he denies any acute complaints 12/18: Still producing urine, feels better overall, denies dyspnea, abd pain, N/V but discussed with pt that renal function tests no better (off HD). 12/19: No acute complaints, did received some HD yesterday as Lt SC CVC worked a bit better to allow for dialysis. Plan for TDC conversion and OP HD again discussed in detail, pt agreeable to plan 12/20: Delayed entry note, pt seen earlier this AM, on HD, TDC working well 12/25: Pt seen on HD, tolerating session, no active complaints (O) Vitals reviewed in the EMR General: In no apparent distress, Cooperative HEENT: Atraumatic, Normocephalic Neck: Supple, Lt SC dialysis catheter, Rt IJ TDC Respiratory: Normal air movement, Diminished at bases Cardiovascular: Regular rate/rhythm, Edema (improved) Gastrointestinal: No tenderness, No guarding, Other (Obese) Musculoskeletal: No tenderness, non pitting swelling of the LE Integumentary: No warmth, chronic dermal changes, xerosis, Rt plantar callous, deep Neurological: Normal speech, Normal tone, Normal affect Laboratory Data (last 24 hrs) Reviewed in the EMR Conclusions/Impression: A/P) 1. Suspected progressive advanced CKD, possibly V in the setting of malignant HTN/nephrosclerosis +/- other primary glomerulopathy, non compliance, other. Labs even in 2018 showed then Cr level elevated and with urine studies showing macroalbuminuria. But of course can not rule out entirely ARF on CKD process but no specific reports of urinary retention (renal u/s pending, u/s from 2018 showed preserved renal sizes then). Did obtain urine studies to assess for active sediment, re-assess proteinuria, and notable proteinuria is present although can also be seen with just renal sclerosis. Renal imaging shows some decrease in renal sizes c/w 2018 and reports of increased renal echogenicity Cr level remained substantially elevated, discussed with pt that proceeding with OP HD (in ARF status) would be recommended via TDC and can determine over the following weeks if he remains dialysis dependent. Pt has received financial clearance for OP HD at [facility], will plan to discharge this evening with first OP HD on Fri, will confirm chair time shortly 2. Will cont Vanc Abx with HD for the duration specified by ID. Did also order MRSA decolonization 3. Hypertensive urgency on admission resolved, off any drips, cont PO meds, BP overall improved. Pt has since been started on ARB 4. Hypoglycemia, unspecified on admission -resolved 5. Will cont lasix since pt is non oliguric. Clinically stable and fluid status improved. Switched to PO lasix 6. 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 Ca level improved Wil Singh MD, ABBI
[2022-12-25 16:45] VITALS: BP 148/77; TEMP 97.6
--- NOTE | 2022-12-25 16:56 | P.DS ---
Admission Date: 12/14/22 Discharge Date: 12/25/22 Disposition: ROUTINE DISCHARGE Discharge Condition: GOOD Reason for Admission: Hypoglycemia; Acute on CKD; ESRD Consultations: 1. Nephrology 2. General Surgery 3. Podiatry 4. Infectious Diseases Procedures: - 12/16/2022 - Insertion of Left Subclavian Temporary Hemodialysis Catheter - 12/19/2022 - Insertion of Tunnelled Right Internal Jugular Hemodialysis Cat heter - 12/23/2022 - Removal of Temporary Left Subclavian Hemodialysis Catheter Hospital Course: DIAGNOSES: # Severe Sepsis likely secondary to Infected Right Diabetic Foot Ulcer with Methicillin-Resistant Staphylococcus Aureus and Methicillin-Sensitive Staphyloccocus Aureus # KDIGO Stage III Acute Kidney Injury on Chronic Kidney Disease now progressed to End-Stage Renal Disease # Acute Decompensated Diastolic Congestive Heart Failure with Preserved Ejection Fraction - resolved # Hypertensive Emergency - resolved # Hypoglycemia in Insulin-Dependent Diabetes Mellitus - resolved # Metabolic Acidosis - resolved # Hypocalcemia - improved # Hypomagnesemia - resolved # Morbid Obesity - BMI 53.1 kg/m2 # Obesity Hypoventilation Syndrome # Anemia of Chronic Kidney Disease # Right Renal Cyst (2.7 cm) # Protein-Albumin Disassociation HOSPITAL COURSE: Mr. Joss Sheppard is a pleasant 42 year old male with a past medical history significant for end-stage renal disease on hemodialysis, chronic diastolic congestive heart failure, hypertension, insulin-dependent diabetes mellitus, and morbid obesity who was admitted to the [facility] on 12/14/2022 for hypoglycemia. He was admitted to the Medicine service. Upon further evaluation, he was found to have severe hypoglycemia, hypertension, metabolic acidosis and acute renal failure on underlying chronic kidney disease. Nephrology was consulted and he was evaluated by Dr. Singh. He was initially placed on a dextrose, nicardipine, and bicarbonate infusion. It was advised that he initiate hemodialysis, to which he agreed. On 12/16/2022, he underwent insertion of left subclavian temporary dialysis catheter and hemodialysis was initiated. Over the course of his hospitalization, his glucose improved and he was weaned off of dextrose. His blood pressure would gradually improve as his anti-hypertensive regimen was escalated and he was weaned off of nicardipine. His acidosis would improve with hemodialysis. With the assistance of Nephrology and case management, outpatient hemodialysis was arranged ([facility]). In regards to his infected diabetic foot ulcer, it grew MRSA and MSSA. Infectious Diseases recommended a 10-day course of IV vancomycin. I reviewed this recommendation with Dr. Singh, who stated that he will arrange for this to be given in hemodialysis. Mr. Sheppard will follow-up with the wound-healing center as an outpatient for his wound care. On 12/25/2022, he was seen on rounds and deemed medically stable for discharge. He was discharged with instructions to schedule follow-up appointments with his PCP (LILA De Paz), with Nephrology (Dr. Singh), with Podiatry (Dr. Hahn), and with Cardiology (Dr. Barrera). He was provided prescriptions for atenolol, calcitriol, calcium acetate, furosemide, Isordil, and losartan. He was given the opportunity to ask questions and reported no further questions. Furthermore, all questions were answered to the best of my ability. A copy of this discharge summary will be sent to the above providers to facilitate continuity of care. Today, I personally spent 25 minutes on his case, of which greater than 50% of the time was spent in patient education, counseling, and coordination of care as described above. Physical Exam General: Alert, In no apparent distress, Oriented x3 HEENT: Atraumatic, Sclerae nonicteric Neck: JVD not distended (difficult to assess given habitus) Respiratory: Clear to auscultation bilaterally, Diminished Cardiovascular: No edema, Regular rate/rhythm,No murmurs Gastrointestinal: Soft, Non-distended, No tenderness Musculoskeletal: No clubbing Integumentary: Right foot ulcer appears clean, dry, and intact Neurological: Normal speech, Normal affect Vital Signs/Physical Exam: Temp Pulse Resp BP Pulse Ox 97.6 F 72 16 148/77 H 98 12/25/22 16:00 12/25/22 16:00 12/25/22 16:00 12/25/22 16:00 12/25/22 16:00 Laboratory Data at Discharge: WBC 12.30 thou/uL (4.3-10.9) H 12/25/22 03:41 Hgb 7.9 g/dL (13.6-17.9) L 12/25/22 03:41 Hct 25.6 % (39.6-49.0) L 12/25/22 03:41 Plt Count 364 thou/uL (152-406) 12/25/22 03:41 PT 13.7 SECONDS (9.5-12.5) H 12/14/22 08:35 INR 1.25 12/14/22 08:35 APTT 30.2 SECONDS (24.3-36.9) 12/14/22 08:35 Sodium 137 mEq/L (136-145) 12/25/22 03:41 Potassium 4.4 mEq/L (3.5-5.1) 12/25/22 03:41 BUN 57 mg/dL (7-18) H 12/25/22 03:41 Creatinine 6.85 mg/dL (0.70-1.30) H 12/25/22 03:41 Glucose 112 mg/dL (74-106) H 12/25/22 03:41 Phosphorus 4.0 mg/dL (2.5-4.9) 12/19/22 06:20 Magnesium 2.0 mg/dL (1.6-2.4) 12/25/22 03:41 Total Bilirubin 0.3 mg/dL (0.2-1.0) 12/21/22 05:47 AST 16 U/L (15-37) 12/21/22 05:47 ALT 13 U/L (16-61) L 12/21/22 05:47 Alkaline Phosphatase 78 U/L (45-117) 12/21/22 05:47 Home Medications: Amlodipine [Norvasc*] 10 mg PO DAILY 06/12/18 Calcium Acetate [Phoslo*] 1,334 mg PO TIDWM #180 tab 12/25/22 Ferrous Sulfate [Ferrous Sulfate*] 325 mg PO BID tab 12/25/22 Furosemide [Lasix*] 40 mg PO BIDL #60 tab 12/25/22 Isosorbide Dinit [Isordil*] 20 mg PO TID #90 tab 12/25/22 Losartan Potassium [Cozaar*] 50 mg PO BID #60 tab 12/25/22 atenoloL [Tenormin*] 25 mg PO BEDTIME #30 tab 12/25/22 calcitrioL [Rocaltrol] 0.25 mcg PO DAILY #30 tab 12/25/22 New Medications: Losartan Potassium [Cozaar*] 50 mg PO BID #60 tab Isosorbide Dinit [Isordil*] 20 mg PO TID #90 tab Furosemide [Lasix*] 40 mg PO BIDL #60 tab Calcium Acetate [Phoslo*] 1,334 mg PO TIDWM #180 tab calcitrioL [Rocaltrol] 0.25 mcg PO DAILY #30 tab atenoloL [Tenormin*] 25 mg PO BEDTIME #30 tab Physician Discharge Instructions: 1. Please call and schedule a follow-up appointment with your PCP (LILA De Paz) in 3-5 days - Please stop taking your insulin and diabetes medications until you see your PCP - Please check your blood sugar at home three times per day and write it down in a journal. Please bring this to your office visit. - Your protein levels were high in comparison to your albumin levels, which can be seen in certain blood disorders. Please discuss this with your PCP. 2. Please call and schedule a follow-up appointment with Nephrology (Dr. Singh) in 3-5 days - You have a cyst on your kidney. Please follow this up with Nephrology 3. Please call and schedule a follow-up appointment with Cardiology (Dr. Barrera) in 5-7 days 4. Please call and schedule a follow-up appointment with Podiatry (Dr. Hahn) in 5-7 days 5. [facility] to your right foot Diet: Renal Activity: Ad miesha Followup: Wil Singh [ACTIVE - CAN ADMIT] - Cayetano Barrera MD [ACTIVE - CAN ADMIT] - SLY DE PAZ [OUTSIDE PHYSICIAN] - Ayo Hahn JR, DPM [ASSOCIATE-ACTIVE - CAN ADMIT] - Time spent managing pt's care (in minutes): 25
== END 2022-12-25 18:13 | disposition home or self-care (01) | DRG 673 ==
LOC: ER 07:09 → ERHOLD 11:29 → 3RD-ICU 12:59 → 2ND 12-17 20:08
PROVIDERS: ADMIT Hospitalist; ATTEND Internal Medicine
PROC: 5A1D70Z Performance of Urinary Filtration, Intermittent, Less than 6 Hours Per Day (ICD-10-PCS; 2022-12-16)
PROC: 02HV33Z Insertion of Infusion Device into Superior Vena Cava, Percutaneous Approach (ICD-10-PCS; 2022-12-16)
PROC: 02HV33Z Insertion of Infusion Device into Superior Vena Cava, Percutaneous Approach (ICD-10-PCS; 2022-12-19)
PROC: 0JH63XZ Insertion of Tunneled Vascular Access Device into Chest Subcutaneous Tissue and Fascia, Percutaneous Approach (ICD-10-PCS; principal; 2022-12-19 12:00)
PROC: 05PY33Z Removal of Infusion Device from Upper Vein, Percutaneous Approach (ICD-10-PCS; 2022-12-21)
DX: N17.9 Acute kidney failure, unspecified (principal); A41.02 Sepsis due to Methicillin resistant Staphylococcus aureus; I50.33 Acute on chronic diastolic (congestive) heart failure; R65.20 Severe sepsis without septic shock; E66.2 Morbid (severe) obesity with alveolar hypoventilation; Z68.43 Body mass index [BMI] 50.0-59.9, adult; E87.20 Acidosis, unspecified; I16.1 Hypertensive emergency; I13.2 Hypertensive heart and chronic kidney disease with heart failure and with stage 5 chronic kidney disease, or end stage renal disease; N18.6 End stage renal disease; E10.22 Type 1 diabetes mellitus with diabetic chronic kidney disease; E10.649 Type 1 diabetes mellitus with hypoglycemia without coma; E10.65 Type 1 diabetes mellitus with hyperglycemia; E10.42 Type 1 diabetes mellitus with diabetic polyneuropathy; E10.621 Type 1 diabetes mellitus with foot ulcer; L97.519 Non-pressure chronic ulcer of other part of right foot with unspecified severity; D63.1 Anemia in chronic kidney disease; I16.0 Hypertensive urgency; L85.3 Xerosis cutis; N28.1 Cyst of kidney, acquired; E83.51 Hypocalcemia; E83.42 Hypomagnesemia; B95.62 Methicillin resistant Staphylococcus aureus infection as the cause of diseases classified elsewhere; Z79.4 Long term (current) use of insulin; Z79.02 Long term (current) use of antithrombotics/antiplatelets; Z79.899 Other long term (current) drug therapy; Z91.013 Allergy to seafood; Z91.048 Other nonmedicinal substance allergy status
CPT/HCPCS: 36415; 36600; 70450; 71045; 76000; 76770; 80048; 80053; 80202; 81001; 82010; 82043; 82533; 82570; 82607; 82805; 82947; 83036; 83605; 83735; 83880; 83970; 84100; 84145; 84439; 84443; 84484; 85025; 85610; 85730; 86705; 86706; 87040; 87070; 87075; 87077; 87186; 87205; 87340; 90935; 93005; 93306; 96374; 96375; 99284; A4216; C1752; J0612; J0696; J1610; J1644; J1720; J1940; J2001; J2354; J2405; J2704; J2997; J3475; J7040; J7042; J7050; Q5106

== ENCOUNTER 2023-10-07 12:09 | Emergency (ER) | payer OTHER ==
--- OUTSIDE RECORDS SUMMARY | 2023-10-07 12:21 | XMS REPORT | Continuity of Care Document ---
Author Name Unknown Address [address] [facility] [address] [place] [address] [facility]connect Address [address] [facility] [place] [address] Care Team Providers Care Field Marketing Director Name Role Phone Nathaniel Moses MD Primary Care Physician [phone] TAYA GORDON Attending Clinician TAYA Hendricks Attending Clinician NATHANIEL Okeefe Attending Clinician Unavailable TAPAN CLARK Attending Clinician Unavaila JOI Wright Attending Clinician Unavailab Joi Johnson DO Attending Clinician [phone] Tapan Clark MD Attending Clinician [phone] Doctor Unassigned, [place] Attending Clinician U Nathaniel Paredes MD Attending Clinician [phone] KIERAN WAHL Attending Clinician Unavail able KIERAN WAHL Attending Clinician Unavail Kieran West MD Attending Clinician [phone] Marian Gonzalez RN Attending Clinician [phone] JACIEL WHYTE Attending Clinician Unavaila Wendy Morgan Attending Clinician [phone] Nate Portillo MD Attending Clinician [phone] Jaciel Whyte MD Attending Clinician [phone] KATHARINA UGALDE Attending Clinician Unavailable SUPRIYA OROZCO Attending Clinician Unavailable SUPRIYA OROZCO Attending Clinician Unavailable Rustam Barbosa DO Attending Clinician [phone] Temo MEZA, Junie Mane Attending Clinician Unavail gibson Thomas MD, Jim Rodriguez Attending Clinician [phone] Adiel Ochoa MD Attending Clinician [phone] Bryan GARCIA, Meir Cooney Attending Clinician + [phone] Lucia GARCIA, Sudeep Chapin Attending Clinician [phone] Sonu Gallardo DO Attending Clinician [phone] Carrie MEZA, Arben Yeager Attending Clinician Unavail able WILMER COTE Attending Clinician Unavailable Tika CURRAN, Daniele Attending Clinician + [phone] Rocael GARCIA, Wilmer Attending Clinician [phone] Natalya Quiroz MD Attending Clinician [phone] Nicolasa Nuñez DO Attending Clinician [phone] Jennie Thurman DO Attending Clinician Cristi GARCIA, Jake Attending Clinician [phone] Ronni Ruggiero MD Attending Clinician [phone] JENNIE THURMAN Attending Clinician Un available TAYA GORDON Admitting Clinician SUPRIYA Santillan Admitting Clinician Unavailable SUDEEP MYERS Admitting Clinician Unavailable Lucia GARCIA, Sudeep Chapin Admitting Clinician [phone] WILMER COTE Admitting Clinician Unavailable Rocael GARCIA, Wilmer Admitting Clinician [phone] Jake Loco MD Admitting Clinician [phone] JAKE LOCO Admitting Clinician Unavailable Payers Payer Name Policy Type Policy Number Effective Date Expirati on Date Source CYNTHIA THOMAS PLS [facility] [id number] 2023 00:00:00 Problems Condition Name Condition Details Condition Category Status Onset Date Resolution Date Last Treatment Date Treating Clinician Comments Source Lumbar disc lesion Lumbar disc lesion Disease Active 08-07 00:00: 00 [facility] Lumbar pain Lumbar pain Disease Active 08-04 00:00: 00 [facility] 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 Disease Active 08-04 00:00: 00 [facility] End stage renal disease End stage renal disease Disease Active 2022-07 00:00: 00 [facility] Primary hypertensi on Primary hypertensi on Disease Active 2022-07 00:00: 00 [facility] Mixed hyperlipid emia Mixed hyperlipid emia Disease Active 2022-07 00:00: 00 [facility] Type 2 diabetes mellitus with chronic kidney disease on chronic dialysis, 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, without long-term current use of insulin Disease Active 2022-07 00:00: 00 [facility] Acute midline low back pain with right-side d sciatica Acute midline low back pain with right-side d sciatica Disease Active 2022-07 00:00: 00 [facility] Bacteremia Bacteremia Disease Active 2022-07 00:00: 00 [facility] Acute febrile illness Acute febrile illness Disease Active 02-11 00:00: 00 [facility] Bacteremia associated with intravascu lar line, initial encounter Bacteremia associated with intravascu lar line, initial encounter Disease Active 02-11 00:00: 00 [facility] PASCALE (acute kidney injury) PASCALE (acute kidney injury) Disease Active 08-23 00:00: 00 [facility] PASCALE (acute kidney injury) PASCALE (acute kidney injury) Disease Active 08-23 00:00: 00 [facility] Morbid obesity with body mass index of 50 or higher Morbid obesity with body mass index of 50 or higher Disease Active 08-23 00:00: 00 [facility] Allergies, Adverse Reactions, Alerts Allergy Name Allergy Type Status Severity Reaction(s) Onset Date Inactive Date Treating Clinician Comments Source IODINE DRUG INGREDI Active Diarrhea 02-11 00:00: 00 [facility] SHELLFIS H DERIVED DRUG INGREDI Active Diarrhea 8 00:00: 00 [facility] Iodine Propensi ty to adverse reaction s Active Diarrhea 8 00:00: 00 [facility] Shellfis h Derived Propensi ty to adverse reaction s Active Diarrhea 8 00:00: 00 [facility] NO KNOWN ALLERGIE S Drug Class Active [facility] Social History Social Habit Start Date Stop Date Quantity Comments Source [facility] Exposure to SARS-CoV-2 (event) Not sure [facility] History of tobacco use Passive smoker [facility] History of Social function 2023-08-07 00:00:00 2023-08-07 00:00:00 [facility] Tobacco use and exposure 2023-05-17 00:00:00 2023-05-17 00:00:00 Smokeless tobacco non-user [facility] Tobacco Comment 2023-05-17 00:00:00 2023-05-17 00:00:00 Past secondhand exposure when a child, Grandmother smoked [facility] Education - What is the highest level of school you have completed or the highest degree you have received? 2020-08-23 00:00:00 2020-08-23 00:00:00 High school graduate [facility] History SDOH Financial 2020-08-23 00:00:00 2020-08-23 00:00:00 5 [facility] History SDOH Food Worry 2020-08-23 00:00:00 2020-08-23 00:00:00 1 [facility] History SDOH Food Scarcity 2020-08-23 00:00:00 2020-08-23 00:00:00 1 [facility] History SDOH Transport Med 2020-08-23 00:00:00 2020-08-23 00:00:00 2 [facility] History SDOH Transport Non-Med 2020-08-23 00:00:00 2020-08-23 00:00:00 2 [facility] Sex Assigned At 1980 00:00:00 1980 00:00:00 [facility] Smoking Status Start Date Stop Date Source Never smoked tobacco [facility] Medications Ordered Medication Name Filled Medication Name Start Date Stop Date Current Medication? Ordering Clinician Indication Dosage Frequency Signature (SIG) Comments Components Source FENTanyl PF (SUBLIMAZE (PF)) injection 75 mcg 09-24 14:00: 00 09-24 13:13 :00 No 75ug 75 mcg, Slow IV Push, ONCE, 1 dose, On Adele 09/25/23 at 0900, Routine [facility] dexamethaso ne sod phos PF injection 10 mg 09-24 12:30: 00 09-24 12:22 :00 No 10mg 10 mg, Oral, ONCE, 1 dose, On Adele 09/25/23 at 0730, 1 mL [facility] tiZANidine (ZANAFLEX) tablet 4 mg 09-24 12:30: 00 09-24 12:22 :00 No 4mg 4 mg, Oral, ONCE, 1 dose, On Adele 09/25/23 at 0730, Routine [facility] tiZANidine 4 mg tablet 09-23 00:00: 00 Yes [id number] 4mg Take 1 tablet by mouth 3 (three) times daily as needed (muscle pain). [facility] tamsulosin 0.4 mg 24 hr capsule 09-18 08:29: 59 Yes .4mg Take 1 capsule by mouth in the morning. [facility] atorvastati n 20 mg tablet 08-07 14:50: 47 08-07 00:00 :00 No 20mg Take 1 tablet by mouth at bedtime. [facility] gabapentin 100 mg capsule 08-07 14:46: 06 08-07 00:00 :00 No 100mg Take 1 capsule by mouth at bedtime. [facility] gabapentin 100 mg capsule 08-07 00:00: 00 Yes [id number] 100mg Take 1 capsule by mouth in the morning and 1 capsule at noon and 1 capsule in the evening. [facility] methocarbam oL 500 mg tablet 08-07 00:00: 00 Yes [id number] 500mg Take 1 tablet by mouth 4 (four) times daily. [facility] atorvastati n 20 mg tablet 08-07 00:00: 00 Yes [id number] 20mg Take 1 tablet by mouth at bedtime. [facility] tamsulosin 0.4 mg 24 hr capsule 08-05 16:52: 27 Yes .4mg Take 1 capsule by mouth in the morning. [facility] atorvastati n 20 mg tablet 08-05 16:52: 27 Yes 20mg Take 1 tablet by mouth at bedtime. [facility] gabapentin 100 mg capsule 08-05 16:52: 27 Yes 100mg Take 1 capsule by mouth at bedtime. [facility] sennosides (SENOKOT) tablet 8.6 mg 08-05 15:00: 00 Yes 8.6mg 8.6 mg, Oral, DAILY, First dose on Fri08/05/23 at 0900, Until Discontinu ed, Routine [facility] epoetin breezy-epbx (RETACRIT) injection 2,010 Units 08-05 12:45: 00 08-05 14:51 :00 No 2000U 2,010 Units (rounded from 2,000 Units), Slow IV Push, DIALYSIS ONCE - [facility], 1 dose, On Fri08/05/23 at 0645, Routine [facility] NaCl 0.9% (NS) injection 5 mL 08-05 12:45: 00 08-05 15:00 :00 No 5mL 5 mL, Slow IV Push, ONCE, 1 dose, On Fri08/05/23 at 0645, Routine [facility] heparin 1,000 unit/mL (10 mL) - dialysis catheter care 08-05 12:44: 50 Yes 2000U PRN - SEE INSTRUCTIO NS, Starting on Fri08/05/23 at 0644, Until Discontinu ed, Routine
For Priming of Ports:&nbs p; &n bsp; After initial saline flush, prime each port with heparin according to the priming volume listed on each catheter port for catheter lock.
[facility] gabapentin (NEURONTIN) capsule 100 mg 08-05 03:19: 00 08-05 03:36 :00 No 100mg 100 mg, Oral, ONCE, 1 dose, On Fri08/04/23 at 2130, Routine [facility] atorvastati n (LIPITOR) tablet 20 mg 08-05 03:00: 00 Yes 20mg 20 mg, Oral, QHS, First dose on Fri08/04/23 at 2100, Until Discontinu ed, Routine [facility] polyethylen e glycol 3350 powder 17 g 08-05 02:00: 00 Yes 17g 17 g, Oral, BID, First dose on Fri08/04/23 at 2000, Until Discontinu ed, Routine [facility] heparin (porcine) injection 5,000 Units 08-05 02:00: 00 Yes 5000U 5,000 Units, Subcutaneo us, Q12H, First dose on Fri08/04/23 at 2000, Until Discontinu ed, Routine [facility] HYDROcodone -acetaminop hen 5-325 mg tablet 08-05 00:00: 00 08-13 05:59 :00 Yes [id number] 1{tbl} Take 1 tablet by mouth every 4 (four) hours as needed for Pain (scale 4-6) or Pain (scale 7-10) for up to 7 days. Indication s: acute pain [facility] sevelamer (RENVELA) tablet 1,600 mg 08-04 23:00: 00 Yes 1600mg 1,600 mg, Oral, TID MEALS, First dose on Fri08/04/23 at 1700, Until Discontinu ed, Routine [facility] gadoteridol (PROHANCE-2 0 mL) injection 30 mL 08-04 16:45: 00 08-04 16:05 :00 No [id number] .2mL/kg 30 mL (0.2 mL/kg ?150 kg), Intravenou s, ONCE, 1 dose, On Fri08/04/23 at 1045, Routine [facility] pantoprazol e (PROTONIX) EC tablet 40 mg 08-04 15:00: 00 Yes 40mg 40 mg, Oral, DAILY, First dose on Fri08/04/23 at 0900, Until Discontinu ed, Routine [facility] docusate (COLACE) capsule 100 mg 08-04 15:00: 00 08-04 21:21 :20 No 100mg 100 mg, Oral, DAILY, First dose on Fri08/04/23 at 0900, Until Discontinu ed, Routine [facility] ondansetron (ZOFRAN (PF)) injection 4 mg 08-04 12:51: 44 Yes 4mg 4 mg, Slow IV Push, Q6HPRN, Starting on Fri08/04/23 at 0651, Until Discontinu ed, Routine, Nausea and Vomiting (N/V) [facility] morpHINE (2 mg/mL) injection 4 mg 08-04 12:51: 44 Yes 4mg 4 mg, Slow IV Push, Q3HPRN, Starting on Fri08/04/23 at 0651, Until Discontinu ed, Routine, Pain (scale 7-10) [facility] oxyCODONE immediate release tablet 5 mg 08-04 12:51: 44 Yes 5mg 5 mg, Oral, Q4HPRN, Starting on Fri08/04/23 at 0651, Until Discontinu ed, Routine, Pain (scale 4-6)
Fa culty member approving Restricted medication : SNSNSURG [facility] allopurinoL 100 mg tablet 08-04 10:13: 27 08-04 00:00 :00 No 300mg Take 3 tablets by mouth in the morning. [facility] morpHINE (4 mg/mL) injection 4 mg 08-04 08:30: 08-04 08:30 :00 No 4mg 4 mg, Slow IV Push, ONCE, 1 dose, On Fri08/04/23 at 0230, STAT [facility] morpHINE (4 mg/mL) injection 4 mg 08-04 06:30: 00 08-04 06:33 :00 No 4mg 4 mg, Slow IV Push, ONCE, 1 dose, On Fri08/04/23 at 0030, STAT [facility] clindamycin in 5 % dextrose (CLEOCIN) 900 mg/50 mL IV piggyback RTU 900 mg 08-04 06:15: 00 08-04 07:03 :00 No 900mg 900 mg, IV Piggyback, ONCE, 1 dose, On Fri08/04/23 at 0015, Administer over 30 Minutes, 50 mL
Reas on for Anti-Infec tive: Documented Infection< br>Documen charisse Infection Site: Skin / Soft Tissue
Duration of Therapy: 7 days
Re stricted use approved by: ED PROVIDER [facility] ketorolac (TORADOL) injection 30 mg 08-04 06:15: 00 08-04 05:37 :00 No 30mg 30 mg, Slow IV Push, ONCE, 1 dose, On Fri08/04/23 at 0015, Routine [facility] ondansetron (ZOFRAN (PF)) injection 4 mg 08-04 05:30: 00 08-04 05:37 :00 No 4mg 4 mg, Slow IV Push, ONCE, 1 dose, On Fri08/03/23 at 2330, AMBER [facility] morpHINE (4 mg/mL) injection 4 mg 08-04 05:30: 00 08-04 05:37 :00 No 4mg 4 mg, Slow IV Push, ONCE, 1 dose, On Fri08/03/23 at 2330, STAT [facility] iopamidol (ISOVUE 370-500 mL) injection 75 mL 2022-07 16:30: 00 06-09 15:36 :00 No [id number] 75mL 75 mL, Intravenou s, ONCE, 1 dose, On 06/09/23 at 1030, Routine [facility] calcitrioL (ROCALTROL) capsule 0.25 mcg 2022-07 15:00: 00 Yes .25ug 0.25 mcg, Oral, DAILY, First dose on Fri05/31/23 at 0900, Until Discontinu ed, Routine [facility] calcitrioL 0.25 mcg capsule 2022-07 00:00: 00 09-01 05:59 :00 No [id number] .25ug Take 1 capsule by mouth in the morning for 92 days. [facility] tamsulosin 0.4 mg 24 hr capsule 2022-07 17:26: 36 Yes .4mg Take 1 capsule by mouth in the morning. [facility] allopurinoL 100 mg tablet 2022-07 17:26: 36 Yes 300mg Take 3 tablets by mouth in the morning. [facility] atorvastati n 20 mg tablet 2022-07 17:26: 36 Yes 20mg Take 1 tablet by mouth at bedtime. [facility] gabapentin 100 mg capsule 2022-07 17:26: 36 Yes 100mg Take 1 capsule by mouth at bedtime. [facility] metoprolol succinate XL (TOPROL XL) 50 mg 24 hr tablet 2022-07 17:26: 31 05-30 00:00 :00 No 50mg Take 1 tablet by mouth in the morning. [facility] lisinopriL 20 mg tablet 2022-07 17:26: 31 05-30 00:00 :00 No 20mg Take 1 tablet by mouth in the morning and 1 tablet in the evening. [facility] NaCl 0.9% (NS) injection 5 mL 2022-07 14:45: 00 05-30 18:24 :00 No 5mL 5 mL, Slow IV Push, ONCE, 1 dose, On Fri05/30/23 at 0845, Routine [facility] heparin 1,000 unit/mL injection 2,000 Units 2022-07 14:35: 14 Yes 2000U PRN - SEE INSTRUCTIO NS, Starting on Fri05/30/23 at 0835, Until Discontinu ed, Routine
For Priming of Ports:&nbs p; &n bsp; After initial saline flush, prime each port with heparin according to the priming volume listed on each catheter port for catheter lock.
[facility] midodrine (PROAMATINE ) tablet 5 mg 2022-07 14:00: 00 Yes 5mg 5 mg, Oral, TID, First dose (after last modificati on) on Fri05/30/23 at 0800, Until Discontinu ed, Routine [facility] midodrine 5 mg tablet 2022-07 00:00: 00 Yes [id number] 5mg Take 1 tablet by mouth in the morning and 1 tablet at noon and 1 tablet in the evening. [facility] sevelamer 800 mg tablet 2022-07 00:00: 00 Yes [id number] 1600mg Take 2 tablets by mouth in the morning and 2 tablets at noon and 2 tablets in the evening. Take with meals. [facility] HYDROcodone -acetaminop hen 5-325 mg tablet 2022-07 00:00: 00 06-07 05:59 :00 No [id number] 1{tbl} Take 1 tablet by mouth every 4 (four) hours as needed for Pain (scale 4-6) for up to 7 days. Indication s: acute pain [facility] NaCl 0.9% (NS) IV infusion 1,000 mL 2022-07 11:30: 00 05-28 16:29 :30 No 1000mL at 200 mL/hr, IV Infusion, CONTINUOUS , Starting on Fri05/28/23 at 0530, Until Fri05/28/23 at 1029, Routine
Discontin ue once orthostati cs are negative<b r> [facility] midodrine (PROAMATINE ) tablet 10 mg 2022-07 02:00: 00 05-30 12:37 :37 No 10mg 10 mg, Oral, TID, First dose (after last modificati on) on Fri05/27/23 at 2000, Until Discontinu ed, Routine [facility] NaCl 0.9% (NS) IV infusion 1,000 mL 2022-07 01:15: 00 05-28 02:14 :00 No 1000mL at 200 mL/hr, IV Infusion, CONTINUOUS , Starting on Fri05/27/23 at 1915, Until Fri05/27/23 at 2014, Routine
Discontin ue once orthostati cs are negative<b r> [facility] sevelamer (RENVELA) tablet 1,600 mg 2022-07 23:00: 00 Yes 1600mg 1,600 mg, Oral, TID MEALS, First dose (after last modificati on) on Fri05/27/23 at 1700, Until Discontinu ed, Routine [facility] NaCl 0.9% (NS) injection 5 mL 2022-07 14:00: 00 05-27 14:00 :00 No 5mL 5 mL, Slow IV Push, ONCE, 1 dose, On Fri05/27/23 at 0800, Routine [facility] heparin 1,000 unit/mL injection 2,000 Units 2022-07 13:50: 26 Yes 2000U PRN - SEE INSTRUCTIO NS, Starting on Fri05/27/23 at 0750, Until Discontinu ed, Routine
For Priming of Ports:&nbs p; &n bsp; After initial saline flush, prime each port with heparin according to the priming volume listed on each catheter port for catheter lock.
[facility] sevelamer (RENVELA) tablet 800 mg 2022-07 23:00: 00 05-27 22:43 :10 No 800mg 800 mg, Oral, TID MEALS, First dose on Fri05/26/23 at 1700, Until Discontinu ed, Routine [facility] NaCl 0.9% (NS) IV infusion 1,000 mL 2022-07 23:00: 00 05-27 22:43 :10 No 1000mL at 150 mL/hr, IV Infusion, CONTINUOUS , Starting on Fri05/26/23 at 1700, Until Fri05/27/23 at 1643, Routine [facility] NaCl 0.9% (NS) bolus infusion 1,000 mL 2022-07 17:41: 00 05-26 17:45 :00 No 1000mL at 999 mL/hr, 1,000 mL, IV Piggyback, ONCE, 1 dose, On Fri05/26/23 at 1145, STAT [facility] midodrine (PROAMATINE ) tablet 10 mg 2022-07 16:30: 00 05-27 20:36 :26 No 10mg 10 mg, Oral, TID, First dose (after last modificati on) on Fri05/26/23 at 1030, Until Discontinu ed, Routine [facility] HYDROcodone -acetaminop hen (NORCO) 10-325 mg tablet 1 tablet 2022-07 14:31: 19 05-30 14:29 :22 No 1{tbl} 1 tablet, Oral, Q6HPRN, Starting on Fri05/26/23 at 0831, Until Fri05/30/23 at 0829, Routine, Pain (scale 7-10) [facility] HYDROcodone -acetaminop hen (NORCO 5) 5-325 mg tablet 1 tablet 2022-07 14:30: 52 Yes 1{tbl} 1 tablet, Oral, Q6HPRN, Starting on Fri05/26/23 at 0830, Until Discontinu ed, Routine, Pain (scale 4-6) [facility] acetaminoph en-codeine (TYLENOL #3) 300-30 mg tablet 1 tablet 2022-07 11:15: 00 05-26 10:29 :00 No 1{tbl} 1 tablet, Oral, ONCE NOW, 1 dose, On Fri05/26/23 at 0515, Routine [facility] Lidocaine (LIDOCARE) 4 % patch 3 Patch 2022-07 10:20: 00 Yes 3{patch } 3 Patch, Topical, Administer over 12 Hours, Q24H, First dose (after last modificati on) on Fri05/26/23 at 0430, Until Discontinu ed, Routine [facility] acetaminoph en (TYLENOL) tablet 650 mg 2022-07 02:00: 00 Yes 650mg 650 mg, Oral, TID, First dose (after last modificati on) on Fri05/25/23 at 2000, Until Discontinu ed, AMBER [facility] meropenem (MERREM) 500 mg in NaCl 0.9% (NS) 100 mL MINI-BAG 2022-07 01:00: 00 05-27 12:38 :35 No 500mg 500 mg, IV Piggyback, Q24H ABX, 3 doses, First dose on Fri05/25/23 at 1900, Last dose on Fri05/27/23 at 1900, Administer over 30 Minutes, 100 mL
Rest ricted use approved by: [facility]LOOR<b r>Reason for Anti-Infec tive: Empiric Therapy for Suspected Infection< br>Empiric Therapy Site: Blood
D uration of therapy: 5 days [facility] vancomycin (VANCOCIN) 1,500 mg in NaCl 0.9% (NS) 500 mL VIAL-MATE IV piggyback 2022-07 01:00: 00 05-26 02:07 :00 No 15mg/kg 1,500 mg (rounded from 2,092.5 mg = 15 mg/kg ?139.5 kg), IV Piggyback, ONCE, 1 dose, On Fri05/25/23 at 1900, Administer over 90 Minutes, 500 mL
Reas on for Anti-Infec tive: Empiric Therapy for Suspected Infection< br>Empiric Therapy Site: Blood
D uration of therapy: 5 days [facility] lactated ringers IV infusion 1,000 mL 2022-07 01:00: 00 05-26 03:10 :00 No 1000mL at 999 mL/hr, 1,000 mL, Intravenou s, ONCE, 1 dose, On Fri05/25/23 at 1900, Routine [facility] acetaminoph en (TYLENOL) tablet 325 mg 2022-07 20:00: 00 05-25 22:22 :06 No 325mg 325 mg, Oral, TID, First dose (after last modificati on) on 05/25/23 at 1400, Until Discontinu ed, AMBER [facility] NaCl 0.9% (NS) bolus infusion 500 mL 2022-07 15:45: 00 05-25 16:00 :00 No 500mL at 999 mL/hr, 500 mL, IV Piggyback, ONCE, 1 dose, On 05/25/23 at 0945, STAT [facility] NaCl 0.9% (NS) bolus infusion 1,000 mL 2022-07 15:45: 00 05-25 15:15 :00 No 1000mL at 999 mL/hr, 1,000 mL, IV Piggyback, ONCE, 1 dose, On Fri05/25/23 at 0945, STAT [facility] ondansetron (ZOFRAN (PF)) injection 4 mg 2022-07 15:30: 00 05-25 15:30 :00 No 4mg 4 mg, Slow IV Push, ONCE, On 05/25/23 at 0930, For 1 dose
Do ses of ondansetro n 16 mg and above need to be administer ed via IV piggyback. For Dose >=24mg ECG monitoring is advisable.
[facility] methocarbam oL (ROBAXIN) tablet 1,000 mg 2022-07 15:15: 00 05-25 22:22 :06 No 1000mg 1,000 mg, Oral, QID, First dose (after last modificati on) on 05/25/23 at 0915, Until Discontinu ed, Routine [facility] midodrine (PROAMATINE ) tablet 10 mg 2022-07 21:15: 00 05-26 12:30 :40 No 10mg 10 mg, Oral, TID, First dose on 05/24/23 at 1515, Until Discontinu ed, Routine [facility] NaCl 0.9% (NS) injection 5 mL 2022-07 14:30: 00 05-24 14:55 :00 No 5mL 5 mL, Slow IV Push, ONCE, 1 dose, On 05/24/23 at 0830, Routine [facility] heparin 1,000 unit/mL (10 mL) - dialysis catheter care 2022-07 14:27: 11 Yes 2000U PRN - SEE INSTRUCTIO NS, Starting on 05/24/23 at 0827, Until Discontinu ed, Routine
For Priming of Ports:&nbs p; &n bsp; After initial saline flush, prime each port with heparin according to the priming volume listed on each catheter port for catheter lock.
[facility] HYDROcodone -acetaminop hen (NORCO 5) 5-325 mg tablet 1 tablet 2022-07 22:00: 00 05-25 15:13 :08 No 1{tbl} 1 tablet, Oral, Q4H, First dose (after last modificati on) on Fri05/23/23 at 1600, Until Discontinu ed, Routine [facility] metoprolol succinate XL (TOPROL XL) tablet 25 mg 2022-07 15:00: 00 05-24 19:51 :40 No 25mg 25 mg, Oral, DAILY, First dose (after last modificati on) on Fri05/23/23 at 0900, Until Discontinu ed, Routine [facility] albumin (ALBUMINAR 25%) 25 % injection 25 g 2022-07 23:15: 00 05-23 02:00 :00 No 25g 25 g, IV Infusion, ONCE, 1 dose, On Adele 05/22/23 at 1715, 100 mL
Emerald cation: NON-APPROV ED INDICATION - PHARMACY WILL CALL ORDERING PROVIDER<b r>Specific Indication : hypotensio n
Facul ty Requesting Approval: NAY GUADALUPE [facility] heparin 1,000 unit/mL (10 mL) - dialysis catheter care 2022-07 19:43: 11 05-24 18:34 :16 No 2000U PRN - SEE INSTRUCTIO NS, Starting on Adele 05/22/23 at 1343, Until 05/24/23 at 1234, Routine
For Priming of Ports:&nbs p; &n bsp; After initial saline flush, prime each port with heparin according to the priming volume listed on each catheter port for catheter lock.
[facility] polyethylen e glycol 3350 powder 17 g 2022-07 15:00: 00 Yes 17g 17 g, Oral, DAILY, First dose on Adele 05/22/23 at 0900, Until Discontinu ed, Routine [facility] methocarbam oL (ROBAXIN) tablet 1,000 mg 2022-07 14:53: 25 05-25 15:12 :06 No 1000mg 1,000 mg, Oral, TIDPRN, Starting on Adele 05/22/23 at 0853, Until 05/25/23 at 0912, Routine, Muscle Spasms [facility] lidocaine 1% (PF) (XYLOCAINE) injection 2022-07 18:22: 33 05-21 18:22 :33 No PRN, Starting on Fri05/21/23 at 1222, Until Fri05/21/23 at 1222, Routine, Intra-op [facility] FENTanyl PF (SUBLIMAZE (PF)) injection 2022-07 18:18: 57 05-21 18:32 :55 No Slow IV Push, PRN, Starting on Fri05/21/23 at 1218, Until Fri05/21/23 at 1232, Routine, Intra-op [facility] midazolam (VERSED) injection 2022-07 18:18: 45 05-21 18:18 :45 No IV Push, PRN, Starting on Fri05/21/23 at 1218, Until Fri05/21/23 at 1218, Routine, Intra-op [facility] NaCl 0.9% (NS) injection 5 mL 2022-07 12:45: 00 05-20 16:17 :00 No 5mL 5 mL, Slow IV Push, ONCE, 1 dose, On Fri05/20/23 at 0645, Routine [facility] heparin 1,000 unit/mL (10 mL) - dialysis catheter care 2022-07 12:42: 21 05-24 18:34 :16 No 2000U PRN - SEE INSTRUCTIO NS, Starting on Fri05/20/23 at 0642, Until 05/24/23 at 1234, Routine
For Priming of Ports:&nbs p; &n bsp; After initial saline flush, prime each port with heparin according to the priming volume listed on each catheter port for catheter lock.
[facility] morpHINE (2 mg/mL) injection 2 mg 2022-07 20:13: 26 05-23 19:09 :19 No 2mg 2 mg, Slow IV Push, Q6HPRN, Starting on Fri05/19/23 at 1413, Until Fri05/23/23 at 1309, Routine, Pain (scale 7-10) [facility] gadobenate dimeglumine (MULTIHANCE -20 mL) injection 30.9 mL 2022-07 16:45: 00 05-18 16:45 :00 No [id number] .2mL/kg 30.9 mL (0.2 mL/kg ?154.5 kg), Intravenou s, ONCE, 1 dose, On Fri05/18/23 at 1045, Routine [facility] sennosides- docusate sodium (SENOKOT-S) 8.6-50 mg per tablet 1 tablet 2022-07 15:00: 00 Yes 1{tbl} 1 tablet, Oral, DAILY, First dose on Fri05/18/23 at 0900, Until Discontinu ed, Routine [facility] Lid[facility] (LIDOCARE) 4 % patch 2022-07 15:00: 00 05-25 22:36 :17 No Topical, Administer over 12 Hours, DAILY, First dose on Fri05/18/23 at 0900, Until Discontinu ed, Routine [facility] tamsulosin (FLOMAX) capsule 0.4 mg 2022-07 15:00: 00 05-25 15:46 :15 No .4mg 0.4 mg, Oral, DAILY, First dose on 05/18/23 at 0900, Until Discontinu ed, Routine [facility] allopurinoL (ZYLOPRIM) tablet 300 mg 2022-07 15:00: 00 05-25 15:46 :15 No 300mg 300 mg, Oral, DAILY, First dose on 05/18/23 at 0900, Until Discontinu ed, Routine [facility] bisacodyL (DULCOLAX) tablet 10 mg 2022-07 15:00: 00 05-25 22:32 :27 No 10mg 10 mg, Oral, DAILY, First dose on 05/18/23 at 0900, Until Discontinu ed, Routine [facility] metoprolol succinate XL (TOPROL XL) tablet 50 mg 2022-07 15:00: 00 05-22 22:32 :22 No 50mg 50 mg, Oral, DAILY, First dose on 05/18/23 at 0900, Until Discontinu ed, [facility]ine [facility] vancom[facility] (VANCOCIN) 1,500 mg in NaCl 0.9% (NS) 500 mL VIAL-MATE IV piggyback 2022-07 15:00: 00 05-18 19:48 :00 No 15mg/kg 1,500 mg (rounded from 2,317.5 mg = 15 mg/kg ?154.5 kg), IV Piggyback, ONCE, 1 dose, On 05/18/23 at 0900, Administer over 90 Minutes, 500 mL
Reas on for Anti-Infec tive: Empiric Therapy for Suspected Infection< br>Empiric Therapy Site: Blood
D uration of therapy: 5 days [facility] gabapentin (NEURONTIN) capsule 100 mg 2022-07 03:00: 00 Yes 100mg 100 mg, Oral, QHS, First dose on 05/17/23 at 2100, Until Discontinu ed, Routine [facility] atorvastati n (LIPITOR) tablet 20 mg 2022-07 03:00: 00 Yes 20mg 20 mg, Oral, QHS, First dose on 05/17/23 at 2100, Until Discontinu ed, Routine [facility] FENTanyl PF (SUBLIMAZE (PF)) injection 12.5 mcg 2022-07 02:49: 00 05-18 03:03 :00 No 12.5ug 12.5 mcg, Slow IV Push, ONCE, 1 dose, On 05/17/23 at 2100, Routine [facility] heparin (porcine) injection 5,000 Units 2022-07 02:00: 00 Yes 5000U 5,000 Units, Subcutaneo us, Q12H, First dose on 05/17/23 at 2000, Until Discontinu ed, Routine [facility] lisinopriL (PRINIVIL,Z ESTRIL) tablet 20 mg 2022-07 02:00: 00 05-22 22:31 :54 No 20mg 20 mg, Oral, BID, First dose on 05/17/23 at 2000, Until Discontinu ed, Routine [facility] NaCl 0.9% (NS) injection 5 mL 2022-07 21:45: 00 05-17 21:45 :00 No 5mL 5 mL, Slow IV Push, ONCE, 1 dose, On 05/17/23 at 1545, Routine [facility] mupirocin (BACTROBAN NASAL OINT) 2 % nasal ointment 2022-07 21:40: 09 Yes Nasal, Q12H, For 5 days, First dose conditiona l, Routine [facility] heparin 1,000 unit/mL (10 mL) - dialysis catheter care 2022-07 21:40: 07 05-18 01:30 :00 No 2000U PRN - SEE INSTRUCTIO NS, 1 dose, Starting on 05/17/23 at 1540, Until 05/17/23 at 1930, Routine
For Priming of Ports:&nbs p; &n bsp; After initial saline flush, prime each port with heparin according to the priming volume listed on each catheter port for catheter lock.
[facility] HYDROcodone -acetaminop hen (NORCO 5) 5-325 mg tablet 1 tablet 2022-07 19:29: 01 05-23 17:08 :50 No 1{tbl} 1 tablet, Oral, Q6HPRN, Starting on 05/17/23 at 1329, Until Fri05/23/23 at 1108, Routine, Pain (scale 4-6) [facility] ondansetron (ZOFRAN (PF)) injection 4 mg 2022-07 17:28: 31 Yes 4mg 4 mg, Slow IV Push, Q6HPRN, Starting on 05/17/23 at 1128, Until Discontinu ed, Routine, Nausea and Vomiting (N/V) [facility] acetaminoph en (TYLENOL) tablet 650 mg 2022-07 17:27: 21 05-25 15:50 :17 No 650mg 650 mg, Oral, Q6HPRN, Starting on 05/17/23 at 1127, Until 05/25/23 at 0950, Routine, Pain (scale 1-3) [facility] NaCl 0.9% (NS) bolus infusion 500 mL 2022-07 14:15: 00 05-17 15:44 :00 No 500mL at 999 mL/hr, 500 mL, IV Infusion, ONCE, 1 dose, On 05/17/23 at 0815, STAT [facility] FENTanyl PF (SUBLIMAZE (PF)) injection 50 mcg 2022-07 13:00: 00 05-17 13:52 :00 No 50ug 50 mcg, Slow IV Push, ONCE, 1 dose, On 05/17/23 at 0700, STAT [facility] tamsulosin 0.4 mg 24 hr capsule 2022-07 12:39: 01 Yes .4mg Take 1 capsule by mouth in the morning. [facility] allopurinoL 100 mg tablet 2022-07 12:39: 01 Yes 300mg Take 3 tablets by mouth in the morning. [facility] atorvastati n 20 mg tablet 2022-07 12:39: 01 Yes 20mg Take 1 tablet by mouth at bedtime. [facility] metoprolol succinate XL (TOPROL XL) 50 mg 24 hr tablet 2022-07 12:39: 01 Yes 50mg Take 1 tablet by mouth in the morning. [facility] lisinopriL 20 mg tablet 2022-07 12:39: 01 Yes 20mg Take 1 tablet by mouth in the morning and 1 tablet in the evening. [facility] gabapentin 100 mg capsule 2022-07 12:39: 01 Yes 100mg Take 1 capsule by mouth at bedtime. [facility] ergocalcife rol, vitamin d2, 1,250 mcg (50,000 unit) capsule 02-22 00:00: 00 03-25 04:59 :00 No [id number] Take 1 capsule by mouth weekly for 30 days. [facility] vancomycin (VANCOCIN) 1,000 mg in NaCl 0.9% (NS) 250 mL VIAL-MATE IV piggyback 02-18 19:00: 00 02-18 22:22 :32 No 1000mg 1,000 mg, IV Piggyback, ONCE, 1 dose, On Fri02/18/23 at 1400, Administer over 60 Minutes, 250 mL
Reas on for Anti-Infec tive: Documented Infection< br>Documen charisse Infection Site: Blood
D uration of Therapy: 14 days [facility] heparin 1,000 unit/mL injection 1,500 Units 02-18 11:00: 00 02-18 18:57 :00 No 1500U 1,500 Units, Slow IV Push, DIALYSIS ONCE - PT ROOM, 1 dose, On Fri02/18/23 at 0600, Routine [facility] calcium acetate,pito sphat bind, 667 mg capsule 02-18 00:00: 00 03-21 04:59 :00 No [id number] 1334mg Take 2 capsules by mouth in the morning and 2 capsules at noon and 2 capsules in the evening. Take with meals. Do all this for 30 days. [facility] bupivacaine (preserv free) (SENSORCAIN E MPF) 0.25 % (2.5 mg/mL) injection 02-17 17:38: 00 02-17 17:55 :03 No PRN, Starting on Fri02/17/23 at 1238, Until Fri02/17/23 at 1255, Routine, Intra-op [facility] heparin lock flush (HEPARIN LOCKFLUSH(P ORCINE)(PF) ) 100 unit/mL injection 02-17 17:23: 00 02-17 17:55 :03 No PRN, Starting on Fri02/17/23 at 1223, Until Fri02/17/23 at 1255, Routine, Intra-op [facility] NaCl 0.9% (NS) IV infusion 02-17 17:23: 00 02-17 17:55 :03 No CONTINUOUS PRN, Starting on Fri02/17/23 at 1223, Until Fri02/17/23 at 1255, Routine, Intra-op [facility] NaCl 0.9% (NS) injection 5 mL 02-17 13:00: 00 02-17 13:51 :00 No 5mL 5 mL, Slow IV Push, ONCE, 1 dose, On Fri02/17/23 at 0800, Routine [facility] heparin 1,000 unit/mL injection 1,500 Units 02-17 13:00: 00 02-17 13:48 :00 No 1500U 1,500 Units, Slow IV Push, DIALYSIS ONCE - PT ROOM, 1 dose, On Fri02/17/23 at 0800, Routine [facility] heparin 1,000 unit/mL injection 2,000 Units 02-17 12:55: 10 Yes 2000U PRN - SEE INSTRUCTIO NS, Starting on Fri02/17/23 at 0755, Until Discontinu ed, Routine
For Priming of Ports:&nbs p; &n bsp; After initial saline flush, prime each port with heparin according to the priming volume listed on each catheter port for catheter lock.
[facility] vancomycin (VANCOCIN) 1,000 mg in NaCl 0.9% (NS) 250 mL VIAL-MATE IV piggyback 02-16 01:00: 00 02-16 02:36 :00 No 1000mg 1,000 mg, IV Piggyback, ONCE, 1 dose, On 02/15/23 at 2000, Administer over 60 Minutes, 250 mL
Reas on for Anti-Infec tive: Empiric Therapy for Suspected Infection< br>Empiric Therapy Site: Blood
D uration of therapy: 5 days [facility] acetaminoph en (TYLENOL) tablet 650 mg 02-15 15:09: 37 Yes 650mg 650 mg, Oral, Q6HPRN, Starting on 02/15/23 at 1009, Until Discontinu ed, Routine, Pain (scale 1-3), Temp > 38 C [facility] NaCl 0.9% (NS) injection 5 mL 02-15 14:45: 00 02-15 20:38 :00 No 5mL 5 mL, Slow IV Push, ONCE, 1 dose, On 02/15/23 at 0945, Routine [facility] heparin 1,000 unit/mL injection 2,000 Units 02-15 14:42: 09 Yes 2000U PRN - SEE INSTRUCTIO NS, Starting on 02/15/23 at 0942, Until Discontinu ed, Routine
For Priming of Ports:&nbs p; &n bsp; After initial saline flush, prime each port with heparin according to the priming volume listed on each catheter port for catheter lock.
[facility] ergocalcife rol (vitamin d2) (CALCIFEROL ) capsule 50,000 Units 02-15 14:00: 00 Yes [id number] 50,000 Units, Oral, QWEEKLY, First dose on 02/15/23 at 0900, Until Discontinu ed, Routine [facility] lidocaine 1% (PF) (XYLOCAINE) injection 20 mL 02-14 18:00: 00 02-14 20:45 :00 No 20mL 20 mL, Infiltrati on, ONCE, 1 dose, On Fri02/14/23 at 1300, AMBER [facility] heparin 1,000 unit/mL injection 2,000 Units 02-14 12:00: 00 Yes 2000U PRN - SEE INSTRUCTIO NS, Starting on Fri02/14/23 at 0700, Until Discontinu ed, Routine
For Priming of Ports:&nbs p; &n bsp; After initial saline flush, prime each port with heparin according to the priming volume listed on each catheter port for catheter lock.
[facility] mupirocin (BACTROBAN NASAL OINT) 2 % nasal ointment 02-14 03:57: 08 Yes Nasal, Q12H, For 5 days, First dose conditiona l, Routine [facility] vancomycin (VANCOCIN) 1,000 mg in NaCl 0.9% (NS) 250 mL VIAL-MATE IV piggyback 02-13 21:45: 00 02-13 23:03 :00 No 1000mg 1,000 mg, IV Piggyback, ONCE, 1 dose, On Fri02/13/23 at 1645, Administer over 60 Minutes, 250 mL
Reas on for Anti-Infec tive: Empiric Therapy for Suspected Infection< br>Empiric Therapy Site: Blood
D uration of therapy: 5 days [facility] calcium acetate(pito sphat bind) (PHOSLO) capsule 1,334 mg 02-13 17:00: 00 Yes 1334mg 1,334 mg, Oral, TID MEALS, First dose on Fri02/13/23 at 1200, Until Discontinu ed, Routine [facility] loperamide (IMODIUM A-D) capsule 2 mg 02-13 16:02: 12 Yes 2mg 2 mg, Oral, Q6HPRN, Starting on Fri02/13/23 at 1102, Until Discontinu ed, Routine, Diarrhea [facility] furosemide (LASIX) injection 40 mg 02-13 13:30: 00 02-13 16:01 :28 No 40mg 40 mg, Slow IV Push, BID MEALS, First dose on Adele 02/13/23 at 0830, Until Discontinu ed, Routine [facility] sulfur hexafluorid e microsphr (LUMASON) injection 5 mL 02-12 19:36: 00 02-12 19:36 :00 No [id number] 5mL 5 mL, Intravenou s, ONCE, 1 dose, On Fri02/12/23 at 1436, Routine
ensemble member approving Restricted medication : DANG BARRAZA [facility] NaCl 0.9% (NS) bolus infusion 500 mL 02-12 16:12: 21 02-12 18:45 :00 No 500mL at 250 mL/hr, 500 mL, IV Infusion, ONCE PRN, 1 dose, Starting on Fri02/12/23 at 1112, Until Fri02/12/23 at 1345, Routine [facility] vancomycin (VANCOCIN) 1,000 mg in NaCl 0.9% (NS) 250 mL VIAL-MATE IV piggyback 02-12 16:00: 00 02-12 17:44 :00 No 1000mg 1,000 mg, IV Piggyback, ONCE, 1 dose, On Fri02/12/23 at 1100, Administer over 60 Minutes, 250 mL
Reas on for Anti-Infec tive: Empiric Therapy for Suspected Infection< br>Empiric Therapy Site: Blood
D uration of therapy: 5 days [facility] ceFEPIme (MAXIPIME) 2,000 mg in NaCl 0.9% (NS) 100 mL MINI-BAG 02-12 15:45: 00 02-13 16:01 :28 No 2000mg 2,000 mg, IV Piggyback, Q24H ABX, 14 doses, First dose on Fri02/12/23 at 1045, Last dose on Fri02/25/23 at 1045, Administer over 30 Minutes, 100 mL
Reas on for Anti-Infec tive: Documented Infection< br>Documen charisse Infection Site: Blood
D uration of Therapy: 14 days [facility] heparin (porcine) injection 5,000 Units 02-12 13:00: 00 Yes 5000U 5,000 Units, Subcutaneo us, Q12H, First dose on Fri02/12/23 at 0800, Until Discontinu ed, Routine [facility] sodium bicarbonate (ANTACID (SODIUM BICARBONATE )) tablet 650 mg 02-12 13:00: 00 02-12 15:36 :38 No 650mg 650 mg, Oral, BID, First dose on Fri02/12/23 at 0800, Until Discontinu ed, Routine [facility] carvediloL (COREG) tablet 25 mg 02-12 13:00: 00 02-12 15:38 :00 No 25mg 25 mg, Oral, BID MEALS, First dose on Fri02/12/23 at 0800, Until Discontinu ed, Routine [facility] Sliding Scale Insulin-Reg ular 02-12 12:30: 00 Yes Subcutaneo us, AC+HS, First dose on Fri02/12/23 at 0730, Until Discontinu ed, Routine [facility] dextrose 10% (D10W) bolus infusion 250 mL 02-12 08:22: 47 Yes 250mL 250 mL, IV Infusion, PRN - SEE INSTRUCTIO NS, Administer over 60 Minutes, Other, If blood glucose is < or = 70 mg/dL and patient is unable to swallow or has mental status changes, Starting on Fri02/12/23 at 0322
If blood glucose is < or = 70 mg/dL and patient is unable to swallow or has mental status changes (Give glucagon order if patient needs fluid restrictio n): IF IV access available: Dextrose 10%. 1. 125 mL (? bag) of D10W IV infusion - equivalent to 12.5 g dextrose 2. Blood glucose - draw blood glucose 15 minutes after D10W Administra tion. 3. If blood glucose is < 80 mg/dL, repeat.
[facility] glucagon (GLUCAGEN DIAGNOSTIC KIT) injection 1 mg 02-12 08:22: 45 Yes 1mg 1 mg, Intramuscu lar, PRN, Starting on Fri02/12/23 at 0322, Until Discontinu ed, AMBER, Blood Glucose < or = 70 mg/dL and patient is NPO, unable to swallow or has mental changes. [facility] vancomycin (VANCOCIN) 1,000 mg in NaCl 0.9% (NS) 250 mL VIAL-MATE IV piggyback 02-12 04:15: 00 02-12 04:36 :00 No 1000mg 1,000 mg, IV Piggyback, ONCE, 1 dose, On Fri02/11/23 at 2315, Administer over 60 Minutes, 250 mL
Reas on for Anti-Infec tive: Empiric Therapy for Suspected Infection< br>Empiric Therapy Site: Other
O ther site: unknown
Duration of therapy: 72 hours [facility] acetaminoph en (TYLENOL) tablet 1,000 mg 02-12 02:45: 00 02-12 01:52 :00 No 1000mg 1,000 mg, Oral, ONCE, 1 dose, On Fri02/11/23 at 2145, AMBER [facility] 00:00: 00 Yes [id number] Check blood sugar bid before meals DX E11.9 Dispense as covered [facility] Lancing Device [facility] 09-05 00:00: 00 Yes [id number] Check blood sugar bid before meals DX E11.9 [facility] blood sugar diagnostic (BLOOD GLUCOSE TEST) strip 09-05 00:00: 00 Yes [id number] Check blood sugar bid before meals DX E11.9 dispense as covered per insurance [facility] Blood-Gluco se Meter Misc 09-05 00:00: 00 05-17 00:00 :00 No [id number] Check blood sugar bid before meals DX E11.9 Dispense as covered [facility] Lancing Device Misc 3-02 00:00: 00 05-17 00:00 :00 No [id number] Check blood sugar bid before meals DX E11.9 [facility] blood sugar diagnostic (BLOOD GLUCOSE TEST) strip 3-02 00:00: 00 05-17 00:00 :00 No [id number] Check blood sugar bid before meals DX E11.9 dispense as covered per insurance [facility] amLODIPine 10 mg tablet 08-29 00:00: 00 05-17 00:00 :00 No [id number] 10mg Take 1 tablet by mouth daily. [facility] glipiZIDE XL 2.5 mg 24 hr tablet 08-29 00:00: 00 05-17 00:00 :00 No [id number] 2.5mg Take 1 tablet by mouth daily with breakfast. [facility] insulin NPH and regular human 70-30 (HUMULIN 70/30 U-100 INSULIN) 100 unit/mL (70-30) injection 08-28 20:02: 41 08-28 00:00 :00 No 30U inject 30 Units under the skin 2 (two) times daily before breakfast and dinner. [facility] LISINOPRIL ORAL 08-28 20:02: 41 08-28 00:00 :00 No Take by mouth. [facility] iron dextran (INFED) 1,000 mg in NaCl 0.9% (NS) 500 mL IV infusion 08-28 14:15: 00 08-28 19:25 :00 No 1000mg 1,000 mg, IV Infusion, ONCE, 1 dose, 08/28/20 at 0815, 500 mL [facility] iron dextran (INFED) 25 mg in NaCl 0.9% (NS) 100 mL IV piggyback 08-28 14:15: 00 08-28 17:55 :00 No 25mg 25 mg, IV Piggyback, ONCE, 1 dose, 08/28/20 at 0815, 100 mL [facility] tropicamide (MYDRIACYL) 1 % ophthalmic drops 2 Drop 08-28 11:00: 00 08-28 10:58 :00 No 2[drp] 2 Drop, Both Eyes, ONCE, 1 dose, Fri08/28/20 at 0500, Routine [facility] phenylephri ne (WANDA-SYNEPH RINE VISCOUS) 10 % ophthalmic drops 2 Drop 08-28 11:00: 00 08-28 10:58 :00 No 2[drp] 2 Drop, Both Eyes, ONCE, 1 dose, Fri08/28/20 at 0500, Routine [facility] lancets 23 gauge [facility] 08-28 00:00: 00 05-17 00:00 :00 No [id number] Use as directed [facility] carvediloL 25 mg tablet 08-28 00:00: 00 02-18 00:00 :00 No [id number] 25mg Take 1 tablet by mouth 2 (two) times daily with meals. [facility] hydrALAZINE 10 mg tablet 08-28 00:00: 00 02-18 00:00 :00 No [id number] 10mg Take 1 tablet by mouth every 8 (eight) hours. [facility] sodium bicarbonate 650 mg tablet 08-28 00:00: 00 02-18 00:00 :00 No [id number] 650mg Take 1 tablet by mouth 2 (two) times daily. [facility] blood sugar diagnostic (BLOOD GLUCOSE TEST) strip 08-28 00:00: 00 09-05 00:00 :00 No [id number] Use as directed [facility] Blood-Gluco se Meter [facility] 08-28 00:00: 00 09-05 00:00 :00 No [id number] Use as directed [facility] Lancing Device [facility] 08-28 00:00: 00 09-05 00:00 :00 No [id number] Use as directed [facility] SITagliptin 25 mg tablet 08-28 00:00: 00 08-29 00:00 :00 No [id number] 25mg Take 1 tablet by mouth daily. [facility] hydrALAZINE (APRESOLINE ) tablet 10 mg 08-27 20:00: 00 Yes 10mg 10 mg, Oral, Q8H, First dose on Fri08/27/20 at 1400, Until Discontinu ed, Routine [facility] carvediloL (COREG) tablet 25 mg 08-26 14:00: 00 Yes 25mg 25 mg, Oral, BID MEALS, First dose (after last modificati on) on Fri08/26/20 at 0800, Until Discontinu ed, Routine [facility] sodium bicarbonate (ANTACID (SODIUM BICARBONATE )) tablet 650 mg 08-25 14:00: 00 Yes 650mg 650 mg, Oral, BID, First dose (after last modificati on) on Fri08/25/20 at 0800, Until Discontinu ed, Routine [facility] sodium bicarbonate (ANTACID (SODIUM BICARBONATE )) tablet 650 mg 08-24 20:00: 00 08-25 13:10 :57 No 650mg 650 mg, Oral, TID, First dose on Fri08/24/20 at 1400, Until Discontinu ed, Routine [facility] D10W 10 % IV infusion 08-24 19:15: 00 08-25 16:09 :32 No at 50 mL/hr, IV Infusion, CONTINUOUS , Starting Fri08/24/20 at 1315, Until Fri08/25/20 at 1009, Routine [facility] carvediloL (COREG) tablet 12.5 mg 08-24 16:15: 00 08-26 13:17 :13 No 12.5mg 12.5 mg, Oral, BID MEALS, First dose on Fri08/24/20 at 1015, Until Discontinu ed, Routine [facility] D10W 10 % IV infusion 08-24 12:45: 00 08-24 12:42 :00 No at 50 mL/hr, IV Infusion, ONCE, 1 dose, Adele 08/24/20 at 0645, Routine [facility] magnesium sulfate in water 2 gram/50 mL (4 %) infusion 2 g 08-24 12:45: 00 08-24 12:17 :00 No 2g 2 g, IV Piggyback, ONCE, 1 dose, Adele 08/24/20 at 0645, Routine [facility] dextrose 50 % in water (D50W) injection 50 mL 08-24 11:47: 18 Yes 50mL 50 mL, Slow IV Push, PRN, Starting Adele 08/24/20 at 0547, Until Discontinu ed, AMBER, Blood Glucose < or = 70 mg/dL and patient is unable to swallow or has mental status changes. [facility] glucagon (GLUCAGEN DIAGNOSTIC KIT) injection 1 mg 08-24 02:28: 41 Yes 1mg 1 mg, Intramuscu lar, PRN, Starting Fri08/23/20 at 2028, Until Discontinu ed, AMBER, Blood Glucose < or = 70 mg/dL and patient is unable to swallow or has mental changes. [facility] amLODIPine (NORVASC) tablet 10 mg 08-24 00:15: 00 Yes 10mg 10 mg, Oral, DAILY, First dose on Fri08/23/20 at 1815, Until Discontinu ed, Routine [facility] doxycycline hyclate (Vibramycin ) capsule 100 mg 08-24 00:00: 00 08-28 11:03 :00 No 100mg 100 mg, Oral, Q12HA2, 10 doses, First dose on Fri08/23/20 at 1800, Last dose on Fri08/28/20 at 0600, AMBER
Re ason for Anti-Infec tive: Documented Infection< br>Documen charisse Infection Site: Skin / Soft Tissue
Duration of Therapy: Other (see Comments) [facility] metFORMIN (GLUCOPHAGE ) 500 mg tablet 08-23 22:53: 03 08-23 00:00 :00 No 500mg Take 500 mg by mouth 2 (two) times daily with meals. [facility] NaCl 0.9% (NS) bolus infusion 500 mL 08-23 22:30: 00 08-23 22:44 :00 No 500mL at 500 mL/hr, 500 mL, IV Infusion, ONCE, 1 dose, Fri08/23/20 at 1630, STAT [facility] Immunizations Ordered Immunization Name Filled Immunization Name Date Status Comments Source Pneumococcal 20 Conjugate, PCV20 (Prevnar 20) Unknown Completed [facility] Pneumococcal 20 Conjugate, PCV20 (Prevnar 20) Unknown Completed [facility] Pneumococcal 20 Conjugate, PCV20 (Prevnar 20) Unknown Completed [facility] Pneumococcal 20 Conjugate, PCV20 (Prevnar 20) Unknown Completed [facility] Pneumococcal 20 Conjugate, PCV20 (Prevnar 20) Unknown Completed [facility] Pneumococcal 20 Conjugate, PCV20 (Prevnar 20) Unknown Completed [facility] Pneumococcal 20 Conjugate, PCV20 (Prevnar 20) Unknown Completed [facility] Pneumococcal 20 Conjugate, PCV20 (Prevnar 20) Unknown Completed [facility] Pneumococcal 20 Conjugate, PCV20 (Prevnar 20) Unknown Completed [facility] Pneumococcal 20 Conjugate, PCV20 (Prevnar 20) Unknown Completed [facility] Pneumococcal 20 Conjugate, PCV20 (Prevnar 20) Unknown Completed [facility] Pneumococcal 20 Conjugate, PCV20 (Prevnar 20) Unknown Completed [facility] Pneumococcal 20 Conjugate, PCV20 (Prevnar 20) Unknown Completed [facility] Pneumococcal 20 Conjugate, PCV20 (Prevnar 20) Unknown Completed [facility] Pneumococcal 20 Conjugate, PCV20 (Prevnar 20) Unknown Completed [facility] Pneumococcal 20 Conjugate, PCV20 (Prevnar 20) Unknown Completed [facility] Vital Signs Vital Name Observation Time Observation Value Comments S ource Systolic blood pressure 2023-09-25 13:00:00 130 mm[Hg] [facility] Diastolic blood pressure 2023-09-25 13:00:00 89 mm[Hg] [facility] Respiratory rate 2023-09-25 13:00:00 13 /min [facility] Oxygen saturation in Arterial blood by Pulse oximetry 2023-09-25 13:00:00 99 /min [facility] Heart rate 2023-09-25 12:00:00 91 /min Unive [facility] Body temperature 2023-09-25 11:33:00 37 Mariana [facility] Body height 2023-09-25 11:33:00 175.3 cm [facility] Body weight 2023-09-25 11:33:00 149.233 kg [facility] BMI 2023-09-25 11:33:00 48.58 kg/m2 [facility] Systolic blood pressure 2023-09-24 14:28:00 112 mm[Hg] [facility] Diastolic blood pressure 2023-09-24 14:28:00 70 mm[Hg] [facility] Heart rate 2023-09-24 14:28:00 122 /min Unive [facility] Body temperature 2023-09-24 14:28:00 36.39 Mariana [facility] Respiratory rate 2023-09-24 14:28:00 16 /min [facility] Body height 2023-09-24 14:28:00 177.8 cm [facility] Body weight 2023-09-24 14:28:00 149.37 kg [facility] BMI 2023-09-24 14:28:00 47.25 kg/m2 [facility] Oxygen saturation in Arterial blood by Pulse oximetry 2023-09-24 14:28:00 99 /min [facility] Systolic blood pressure 2023-09-19 13:27:00 111 mm[Hg] [facility] Diastolic blood pressure 2023-09-19 13:27:00 75 mm[Hg] [facility] Heart rate 2023-09-19 13:27:00 101 /min Unive [facility] Body temperature 2023-09-19 13:27:00 37 Mariana [facility] Respiratory rate 2023-09-19 13:27:00 16 /min [facility] Body height 2023-09-19 13:27:00 177.8 cm [facility] Body weight 2023-09-19 13:27:00 149.37 kg [facility] BMI 2023-09-19 13:27:00 47.25 kg/m2 [facility] Systolic blood pressure 2023-08-18 20:46:00 146 mm[Hg] [facility] Diastolic blood pressure 2023-08-18 20:46:00 91 mm[Hg] [facility] Heart rate 2023-08-18 20:46:00 102 /min Unive [facility] Body height 2023-08-18 20:46:00 175.3 cm [facility] Body weight 2023-08-18 20:46:00 152.817 kg [facility] BMI 2023-08-18 20:46:00 49.75 kg/m2 [facility] Oxygen saturation in Arterial blood by Pulse oximetry 2023-08-18 20:46:00 100 /min [facility] Systolic blood pressure 2023-08-07 20:00:00 115 mm[Hg] [facility] Diastolic blood pressure 2023-08-07 20:00:00 83 mm[Hg] [facility] Heart rate 2023-08-07 20:00:00 113 /min Unive [facility] Body temperature 2023-08-07 20:00:00 36.11 Mariana [facility] Respiratory rate 2023-08-07 20:00:00 18 /min [facility] Body height 2023-08-07 20:00:00 175.3 cm [facility] Body weight 2023-08-07 20:00:00 148.19 kg [facility] BMI 2023-08-07 20:00:00 48.25 kg/m2 [facility] Oxygen saturation in Arterial blood by Pulse oximetry 2023-08-07 20:00:00 99 /min [facility] Systolic blood pressure 2023-08-05 18:49:00 152 mm[Hg] [facility] Diastolic blood pressure 2023-08-05 18:49:00 93 mm[Hg] [facility] Heart rate 2023-08-05 18:49:00 120 /min Unive [facility] Body temperature 2023-08-05 18:49:00 37.39 Mariana [facility] Respiratory rate 2023-08-05 18:49:00 16 /min [facility] Oxygen saturation in Arterial blood by Pulse oximetry 2023-08-05 18:49:00 98 /min [facility] Body weight 2023-08-05 18:04:00 147.2 kg [facility] BMI 2023-08-05 18:04:00 47.92 kg/m2 [facility] Body height 2023-08-04 04:42:00 175.3 cm [facility] Systolic blood pressure 2023-05-30 19:12:00 147 mm[Hg] [facility] Diastolic blood pressure 2023-05-30 19:12:00 98 mm[Hg] [facility] Heart rate 2023-05-30 19:12:00 89 [facility] Body temperature 2023-05-30 19:12:00 36.5 Mariana [facility] Respiratory rate 2023-05-30 19:12:00 18 /min [facility] Oxygen saturation in Arterial blood by Pulse oximetry 2023-05-30 19:12:00 97 /min [facility] Body weight 2023-05-30 18:44:00 150 kg standing [facility] BMI 2023-05-30 18:44:00 48.83 kg/m2 [facility] Body height 2023-05-17 17:25:00 175.3 cm [facility] Systolic blood pressure 2023-02-18 21:57:00 162 mm[Hg] [facility] Diastolic blood pressure 2023-02-18 21:57:00 102 mm[Hg] [facility] Heart rate 2023-02-18 21:57:00 80 /min Unive [facility] Body temperature 2023-02-18 21:57:00 36.17 Mariana [facility] Respiratory rate 2023-02-18 21:57:00 15 /min [facility] Body weight 2023-02-18 21:57:00 144.5 kg bed scale [facility] BMI 2023-02-18 21:57:00 47.04 kg/m2 [facility] Oxygen saturation in Arterial blood by Pulse oximetry 2023-02-18 14:00:00 96 /min [facility] Body height 2023-02-12 01:43:00 175.3 cm [facility] Systolic blood pressure 2023-02-17 18:46:00 140 mm[Hg] [facility] Diastolic blood pressure 2023-02-17 18:46:00 87 mm[Hg] [facility] Heart rate 2023-02-17 18:46:00 75 /min Unive [facility] Respiratory rate 2023-02-17 18:46:00 13 /min [facility] Oxygen saturation in Arterial blood by Pulse oximetry 2023-02-17 18:46:00 98 /min [facility] Body temperature 2023-02-17 17:49:00 36.5 Mariana [facility] Body weight 2023-02-17 14:48:00 144.5 kg [facility] BMI 2023-02-17 14:48:00 47.36 kg/m2 [facility] Body height 2023-02-12 01:43:00 175.3 cm [facility] Systolic blood pressure 2020-08-28 17:56:00 170 mm[Hg] [facility] Diastolic blood pressure 2020-08-28 17:56:00 93 mm[Hg] [facility] Heart rate 2020-08-28 17:56:00 78 /min [facility] Body temperature 2020-08-28 17:56:00 36.11 Mariana [facility] Respiratory rate 2020-08-28 17:56:00 18 /min [facility] Oxygen saturation in Arterial blood by Pulse oximetry 2020-08-28 17:56:00 94 /min [facility] Body height 2020-08-24 02:55:00 177.8 cm [facility] Body weight 2020-08-24 02:55:00 172.367 kg [facility] BMI 2020-08-24 02:55:00 54.52 kg/m2 [facility] Systolic blood pressure 2023-05-23 13:42:00 121 mm[Hg] [facility] Diastolic blood pressure 2023-05-23 13:42:00 75 mm[Hg] [facility] Heart rate 2023-05-23 13:42:00 80 /min [facility] Body temperature 2023-05-23 13:42:00 36.33 Mariana [facility] Respiratory rate 2023-05-23 13:42:00 20 /min [facility] Oxygen saturation in Arterial blood by Pulse oximetry 2023-05-23 13:42:00 96 /min [facility] Body weight 2023-05-23 00:25:00 148.5 kg [facility] BMI 2023-05-23 00:25:00 48.35 kg/m2 [facility] Body height 2023-05-17 17:25:00 175.3 cm [facility] Procedures Procedure Date / Time Performed Performing Clinician Source EXTERNAL PROVIDER RECORDS 2023-08-20 06:01:00 Do ctor Unassigned, [place] [facility] PNEUMOCOCCAL 20 CONJUGATE (PREVNAR 20) VACCINE 2023-08-07 21:06:23 Nathaniel Moses [facility] BLOOD CULTURE SCREEN 2023-08-05 10:15:00 Nate Portillo [facility] PHOSPHORUS 2023-08-05 10:14:00 Ten Hicks [facility] MAGNESIUM 2023-08-05 10:14:00 Miguelito Colmenares [facility] BASIC METABOLIC PANEL (NA, K, CL, CO2, GLUCOSE, BUN, CREATININE, CA) 2023-08-05 10:14:00 Sami Allred [facility] IRON PANEL 2023-08-05 10:14:00 Miguelito Colmenares [facility] CBC WITH DIFF 2023-08-05 10:14:00 [facility] HE[facility] SURFACE ANTIGEN 2023-08-05 10:14:00 Nay Guadalupe [facility] BLOOD CULTURE SCREEN 2023-08-04 20:15:00 Nate Portillo [facility] BASIC METABOLIC PANEL (NA, K, CL, CO2, GLUCOSE, BUN, CREATININE, CA) 2023-08-04 20:15:00 Vj Bliss [facility] PROTHROMBIN TIME / INR 2023-08-04 20:15:00 Mohinder Bliss [facility] FERRITIN SERUM 2023-08-04 17:17:00 [facility]-REACT[facility] PROTEIN 2023-08-04 17:17:00 Nate Portillo [facility] BASIC METABOLIC PANEL (NA, K, CL, CO2, GLUCOSE, BUN, CREATININE, CA) 2023-08-04 17:17:00 Sami Allred [facility] SEDIMENTATION RATE 2023-08-04 17:17:00 Nate Portillo [facility] CBC WITH DIFF 2023-08-04 17:17:00 Sami Allred [facility] MR LUMBAR SPINE W WO CONTRAST 2023-08-04 16:35:00 Micky Farmer [facility] [place] INCISION & DRAINAGE ABSCESS SIMPLE/SINGLE 2023-08-04 06:11:14 Wendy Singh [facility] CT LUMBAR SPINE WO CONTRAST 2023-08-04 05:54:24 Wendy Singh [facility] XR ANKLE 3+ VW RIGHT 2023-08-04 05:54:13 Hyun Singh [facility] COMP. METABOLIC PANEL (98919) 2023-08-04 05:37:00 Wendy Singh [facility] CBC WITH DIFF 2023-08-04 05:37:00 Wendy Singh [facility] HOSPITAL ADMISSION 2023-08-03 06:01:00 Doctor Un assigned, [place] [facility] CT THORAX W CONTRAST 2023-06-09 15:35:46 Rustam Barbosa [facility] PATIENT FINANCIAL POLICY 2023-06-09 14:33:35 Doctor Unassigned, [place] [facility] NO SHOW OR MISSED APPOINTMENT POLICY ACKNOWLEDGEMENT 2023-06-09 14:33:08 Doctor Unassigned, [place] [facility] NOTICE OF BILLING PRACTICES FOR MEDICARE PATIENTS 2023-06-09 14:32:53 Doctor Unassigned, [place] [facility] CONSENT/REFUSAL FOR DIAGNOSIS AND TREATMENT 2023-06-09 14:32:36 Doctor Unassigned, [place] [facility] ASSIGNMENT OF BENEFITS 2023-06-09 14:32:21 Docto r Unassigned, [place] [facility] AUTHORIZATION FOR RELEASE OF PHI 2023-06-04 06:01:00 Doctor Unassigned, [place] [facility] PHOSPHORUS 2023-05-29 19:21:00 [facility] MAGNESIUM 2023-05-29 19:21:[address] [facility] BASIC METABOLIC PANEL (NA, K, CL, CO2, GLUCOSE, BUN, CREATININE, CA) 2023-05-29 19:21:00 Jerrell Steenssica [facility] MAGNESIUM 2023-05-28 09:55:00 Ronni Keller [facility] BASIC METABOLIC PANEL (NA, K, CL, CO2, GLUCOSE, BUN, CREATININE, CA) 2023-05-28 09:55:[address] [facility] CBC WITH DIFF 2023-05-28 09:55:00 Ronni Keller [facility] PHOSPHORUS 2023-05-27 10:34:00 Ronni Keller [facility] MAGNESIUM 2023-05-27 10:34:00 Ronni Keller [facility] BASIC METABOLIC PANEL (NA, K, CL, CO2, GLUCOSE, BUN, CREATININE, CA) 2023-05-27 10:34:00 Ronni Keller [facility] CBC WITHOUT DIFF 2023-05-27 10:34:00 Ronni Keller [facility] POCT GLUCOSE (AUTOMATED) 2023-05-26 22:35:00 Eduarda Orozco rna [facility] POCT GLUCOSE (AUTOMATED) 2023-05-26 18:04:00 Eduarda Orozco rna [facility] HB ECG ROUTINE & RHYTHM STRIP 2023-05-26 17:22:[address] [facility] POCT GLUCOSE (AUTOMATED) 2023-05-26 14:25:00 Eduarda Orozco [facility] PHOSPHORUS 2023-05-26 09:20:00 Ronni Keller [facility] MAGNESIUM 2023-05-26 09:20:00 Ronni Keller [facility] TROPONIN I 2023-05-26 09:20:00 Ronni Keller [facility] BASIC METABOLIC PANEL (NA, K, CL, CO2, GLUCOSE, BUN, CREATININE, CA) 2023-05-26 09:20:[address] [facility] VANCOMYCIN TROUGH 2023-05-26 09:20:00 Ronni Keller [facility] CBC WITHOUT DIFF 2023-05-26 09:20:00 [facility]ni [facility] XR KUB 2023-05-26 00:40:19 Ronni Keller [facility] BLOOD CULTURE SCREEN 2023-05-26 00:30:00 Tata Steen [facility] BLOOD CULTURE SCREEN 2023-05-26 00:21:00 Tata Steen [facility] CT HEAD WO CONTRAST 2023-05-25 21:48:00 Connie Steen [facility] POCT GLUCOSE (AUTOMATED) 2023-05-25 21:16:00 Eduarda Orozco [facility] COMP. METABOLIC PANEL (35820) 2023-05-25 14:41:00 Katharina Steen [facility] CBC WITH DIFF 2023-05-25 14:41:00 Katharina Steen [facility] LACTIC ACID WHOLE BLOOD 2023-05-25 14:32:00 Jerrell Steen [facility] POCT GLUCOSE (AUTOMATED) 2023-05-25 14:19:00 Eduarda Orozco [facility] CBC WITH DIFF 2023-05-25 10:37:00 Rustam Barbosa [facility] PHOSPHORUS 2023-05-24 07:33:00 Rustam Barbosa [facility] MAGNESIUM 2023-05-24 07:33:00 Rustam Barbosa [facility] BASIC METABOLIC PANEL (NA, K, CL, CO2, GLUCOSE, BUN, CREATININE, CA) 2023-05-24 07:33:00 Rustam Barbosa [facility] CBC WITH DIFF 2023-05-24 07:33:00 Rustam Barbosa [facility] CBC WITH DIFF 2023-05-23 20:48:00 Rustam Barbosa [facility] BASIC METABOLIC PANEL (NA, K, CL, CO2, GLUCOSE, BUN, CREATININE, CA) 2023-05-22 07:03:00 Rustam Barbosa [facility] MAGNESIUM 2023-05-22 07:03:00 Rustam Barbosa [facility] CBC WITH DIFF 2023-05-22 07:03:00 Rustam Barbosa [facility] PHOSPHORUS 2023-05-22 07:03:00 Rustam Barbosa [facility] PHOSPHORUS 2023-05-22 07:03:00 Rustam Barbosa [facility] MAGNESIUM 2023-05-22 07:03:00 Rustam Barbosa [facility] BASIC METABOLIC PANEL (NA, K, CL, CO2, GLUCOSE, BUN, CREATININE, CA) 2023-05-22 07:03:00 Familia [facility] CBC WITH DIFF 2023-05-22 07:03:00 Rustam Barbosa [facility] IR BIOPSY BONE DEEP WITH FLUORO 2023-05-21 18:59:21 Joy Stone [facility] TISSUE CULTURE(AEROBIC/ANAEROBIC ) 2023-05-21 18:34:00 Cate Case [facility] TISSUE CULTURE(AEROBIC/ANAEROBIC ) 2023-05-21 18:34:00 Cate Case [facility] SURGICAL PATHOLOGY EXAM 2023-05-21 18:34:00 Skylar Case [facility] BASIC METABOLIC PANEL (NA, K, CL, CO2, GLUCOSE, BUN, CREATININE, CA) 2023-05-21 10:35:00 Rodriguez Up [facility] MAGNESIUM 2023-05-21 10:35:00 Rodriguez Up [facility] HEPATITIS B SURFACE ANTIBODY 2023-05-21 10:35:00 Kristin [facility] MAGNESIUM 2023-05-21 10:35:00 Rodriguez Up [facility] BASIC METABOLIC PANEL (NA, K, CL, CO2, GLUCOSE, BUN, CREATININE, CA) 2023-05-21 10:35:00 Rodriguez Up [facility] HEPATITIS B SURFACE ANTIBODY 2023-05-21 10:35:00 Kristin [facility] BASIC METABOLIC PANEL (NA, K, CL, CO2, GLUCOSE, BUN, CREATININE, CA) 2023-05-20 19:24:00 Chase [facility] BASIC METABOLIC PANEL (NA, K, CL, CO2, GLUCOSE, BUN, CREATININE, CA) 2023-05-20 19:24:00 [facility]-20 11:32:00 Jessi Rosenberg [facility] BASIC METABOLIC PANEL (NA, K, CL, CO2, GLUCOSE, BUN, CREATININE, CA) 2023-05-20 11:32:00 Katharine Rosenberg [facility] CBC WITH DIFF 2023-05-20 11:32:00 [facility]TIGEN 2023-05-20 11:32:00 Nay Guadalupe [facility] MAGNESIUM 2023-05-20 11:32:00 [facility]IC MET[facility]OLIC PANEL (NA, K, CL, CO2, GLUCOSE, BUN, CREATININE, CA) 2023-05-20 11:32:00 Shakira Katharine [facility] CBC WITH DIFF 2023-05-20 11:32:00 Jessi Rosenberg [facility] HEPATITIS B SURFACE ANTIGEN 2023-05-20 11:32:00 Nay Guadalupe [facility] BLOOD CULTURE SCREEN 2023-05-19 17:46:00 Taz Stone [facility] BLOOD CULTURE SCREEN 2023-05-19 17:46:00 Taz Stone [facility] BLOOD CULTURE SCREEN 2023-05-19 17:45:00 Taz Stone [facility] BLOOD CULTURE SCREEN 2023-05-19 17:45:00 Taz Stone [facility] VANCOMYCIN TROUGH 2023-05-19 12:02:00 [facility] (NA, K, CL, CO2, GLUCOSE, BUN, CREATININE, CA) 2023-05-19 12:02:00 Rodriguez Up [facility] MAGNESIUM 2023-05-19 12:02:00 Rodriguez Up [facility] PHOSPHORUS 2023-05-19 12:02:00 Jeovanny [facility] EXTRA TUBE LAV 2023-05-19 12:02:00 Supriya Orozco [facility] PHOSPHORUS 2023-05-19 12:02:00 Rodriguez Up [facility] MAGNESIUM 2023-05-19 12:02:00 Rodriguez Up [facility] BASIC METABOLIC PANEL (NA, K, CL, CO2, GLUCOSE, BUN, CREATININE, CA) 2023-05-19 12:02:00 Jeovanny [facility] VANCOMYCIN TROUGH 2023-05-19 12:02:00 Jeovanny [facility] EXTRA TUBE LAV 2023-05-19 12:02:00 Supriya Orozco [facility] SEDIMENTATION RATE 2023-05-18 18:16:00 Rodriguez Up [facility] VITAMIN D, 25-OH 2023-05-18 18:16:00 Rodriguez Up [facility] SEDIMENTATION RATE 2023-05-18 18:16:00 Jeovanny [facility] VITAMIN D, 25-OH 2023-05-18 18:16:00 Rodriguez Up [facility] MR LUMBAR SPINE W WO CONTRAST 2023-05-18 16:41:21 Chase [facility] MR LUMBAR SPINE W WO CONTRAST 2023-05-18 16:41:21 [facility]OLIC PANEL (NA, K, CL, CO2, GLUCOSE, BUN, CREATININE, CA) 2023-05-18 09:43:00 Jeovanny [facility] MAGNESIUM 2023-05-18 09:43:00 Rodriguez Up [facility] INTACT PTH CALCIUM GROUP 2023-05-18 09:43:00 Kandis Up [facility] MAGNESIUM 2023-05-18 09:43:00 Rodriguez Up [facility] BASIC METABOLIC PANEL (NA, K, CL, CO2, GLUCOSE, BUN, CREATININE, CA) 2023-05-18 09:43:00 Jeovanny [facility] INTACT PTH CALCIUM GROUP 2023-05-18 09:43:00 Knadis Up [facility] BLOOD CULTURE SCREEN 2023-05-17 19:10:00 Jeovanny [facility] BLOOD CULTURE WORKUP 2023-05-17 19:10:00 Jeovanny [facility] GRAM POSITIVE BLOOD PATHOGENS DNA PROBE-ANAEROBIC 2023-05-17 19:10:00 Jeovanny [facility] BLOOD CULTURE SCREEN 2023-05-17 19:10:00 Jeovanny [facility] BLOOD CULTURE WORKUP 2023-05-17 19:10:00 Jeovanny [facility] GRAM POSITIVE BLOOD PATHOGENS DNA PROBE-ANAEROBIC 2023-05-17 19:10:00 Jeovanny [facility] PROTHROMBIN TIME / INR 2023-05-17 18:29:00 Stepan Up [facility] ACTIVATED PARTIAL THRMPLAS MICKY 2023-05-17 18:29:00 Jeovanny [facility] BLOOD CULTURE SCREEN 2023-05-17 18:29:00 Jeovanny [facility] C-REACTIVE PROTEIN 2023-05-17 18:29:00 Jeovanny [facility] ELECTROPHORESIS, SERUM 2023-05-17 18:29:00 Stepan Up [facility] BLOOD CULTURE SCREEN 2023-05-17 18:29:00 Jeovanny [facility] ELECTROPHORESIS, SERUM 2023-05-17 18:29:00 Stepan Up [facility] C-REACTIVE PROTEIN 2023-05-17 18:29:00 Jeovanny [facility] PROTHROMBIN TIME / INR 2023-05-17 18:29:00 Stepan Up [facility] ACTIVATED PARTIAL THRMPLAS MICKY 2023-05-17 18:29:00 Jeovanny [facility] HIGH SENSITIVITY CRP 2023-05-17 14:08:00 Don, And res [facility] HIGH SENSITIVITY CRP 2023-05-17 14:08:00 Don, And res [facility] CT ABDOMEN PELVIS WO CONTRAST 2023-05-17 13:08:00 Jim Thomas [facility] CT LUMBAR SPINE WO CONTRAST 2023-05-17 13:08:00 Jim Thomas [facility] CT ABDOMEN PELVIS WO CONTRAST 2023-05-17 13:08:00 Jim Thomas [facility] CT LUMBAR SPINE WO CONTRAST 2023-05-17 13:08:00 Jim Thomas [facility] CBC WITH DIFF 2023-05-17 12:36:00 [facility] BASIC METABOLIC PANEL (NA, K, CL, CO2, GLUCOSE, BUN, CREATININE, CA) 2023-05-17 12:36:00 Jim Thomas [facility] HEPATIC FUNCTION PANEL (31223) (ALB,T.PRO,BILI T,BU/BC,ALT,AST,ALK PHOS) 2023-05-17 12:36:00 [facility] MAGNESIUM 2023-05-17 12:36:00 Rodriguez Up [facility] PHOSPHORUS 2023-05-17 12:36:00 [facility]anny [facility] GLYCOSYLATED HEMOGLOBIN (A1C) 2023-05-17 12:36:00 [facility] THYROID STIMULATING HORMONE 2023-05-17 12:36:00 [facility] LIPID PANEL (80218)(TOTAL CHOLESTEROL, TRIGLYCERIDES, HDL) 2023-05-17 12:36:00 [facility] FERRITIN SERUM 2023-05-17 12:36:00 [facility] PROSTATIC SPECIFIC ANTIGEN 2023-05-17 12:36:00 Joev[facility] PHOSPHORUS 2023-05-17 12:36:00 Rodriguez [facility] MAGNESIUM 2023-05-17 12:36:00 [facility] PRO[facility] SPECIFIC ANTIGEN 2023-05-17 12:36:00 [facility] FERRITIN SERUM 2023-05-17 12:36:00 [facility] THYROID STIMULATING HORMONE 2023-05-17 12:36:00 [facility] HEPATIC FUNCTION PANEL ([id number]) (ALB,T.PRO,BILI T,BU/BC,ALT,AST,ALK PHOS) 2023-05-17 12:36:00 [facility] BASIC METABOLIC PANEL (NA, K, CL, CO2, GLUCOSE, BUN, CREATININE, CA) 2023-05-17 12:36:00 Jim Thomas [facility] LIPID PANEL ([id number])(TOTAL CHOLESTEROL, TRIGLYCERIDES, HDL) 2023-05-17 12:36:00 [facility] CBC WITH DIFF 2023-05-17 12:36:00 [facility] GLYCOSYLATED HEMOGLOBIN (A1C) 2023-05-17 12:36:00 [facility] POCT GLUCOSE (AUTOMATED) 2023-02-18 22:04:00 Michael Cote [facility] POCT GLUCOSE (AUTOMATED) 2023-02-18 16:52:00 Michael Cote [facility] POCT GLUCOSE (AUTOMATED) 2023-02-18 16:52:00 Michael Cote [facility] POCT GLUCOSE (AUTOMATED) 2023-02-18 12:57:00 Michael Cote [facility] POCT GLUCOSE (AUTOMATED) 2023-02-18 12:57:00 Michael Cote [facility] PHOSPHORUS 2023-02-18 09:17:00 Wilmer Cote [facility] MAGNESIUM 2023-02-18 09:17:00 [facility] BASIC METABOLIC PANEL (NA, K, CL, CO2, GLUCOSE, BUN, CREATININE, CA) 2023-02-18 09:17:00 Pauline [facility] VANCOMYCIN RANDOM LEVEL 2023-02-18 09:17:00 Kay Singh [facility] CBC WITH DIFF 2023-02-18 09:17:00 Ervin Carpenter [facility] N-TERMINAL PRO-BNP 2023-02-18 09:17:00 Wilmer Cote [facility] PHOSPHORUS 2023-02-18 09:17:00 Wilmer Cote [facility] MAGNESIUM 2023-02-18 09:17:00 [facility] BASIC METABOLIC PANEL (NA, K, CL, CO2, GLUCOSE, BUN, CREATININE, CA) 2023-02-18 09:17:00 Pauline [facility] VANCOMYCIN RANDOM LEVEL 2023-02-18 09:17:00 Kay Singh [facility] CBC WITH DIFF 2023-02-18 09:17:00 Ervin Carpenter [facility] N-TERMINAL PRO-BNP 2023-02-18 09:17:00 Wilmer Cote [facility] POCT GLUCOSE (AUTOMATED) 2023-02-18 01:31:00 Michael Cote [facility] POCT GLUCOSE (AUTOMATED) 2023-02-18 01:31:00 Michael Cote [facility] POCT GLUCOSE (AUTOMATED) 2023-02-17 21:32:00 Michael Cote [facility] POCT GLUCOSE (AUTOMATED) 2023-02-17 21:32:00 [facility] TIME OR (NON-REPORTABLE) 2023-02-17 19:35:00 Gabriella [facility] [place] TIME OR (NON-REPORTABLE) 2023-02-17 19:35:00 Gabriella [facility] XR CHEST 1 VW 2023-02-17 18:23:10 [facility] XR CHEST 1 VW 2023-02-17 18:23:10 Gabriella [facility] CENTRAL VENOUS ACCESS CATHETER PLACEMENT 2023-02-17 16:32:00 Quiroz [facility] CENTRAL VENOUS ACCESS CATHETER PLACEMENT 2023-02-17 16:32:00 Gabriella [facility] POCT GLUCOSE (AUTOMATED) 2023-02-17 12:38:00 Michael Cote [facility] POCT GLUCOSE (AUTOMATED) 2023-02-17 12:38:00 Michael Cote [facility] PHOSPHORUS 2023-02-17 09:08:00 Wilmer Cote [facility] MAGNESIUM 2023-02-17 09:08:00 Wilmer Cote [facility] BASIC METABOLIC PANEL (NA, K, CL, CO2, GLUCOSE, BUN, CREATININE, CA) 2023-02-17 09:08:00 Wilmer Cote [facility] VANCOMYCIN RANDOM LEVEL 2023-02-17 09:08:00 [facility]FF 2023-02-17 09:08:00 Wilmer Cote [facility] N-TERMINAL PRO-BNP 2023-02-17 09:08:00 Wilmer Cote [facility] PHOSPHORUS 2023-02-17 09:08:00 Wilmer Cote [facility] MAGNESIUM 2023-02-17 09:08:00 Wilmer Cote [facility] BASIC METABOLIC PANEL (NA, K, CL, CO2, GLUCOSE, BUN, CREATININE, CA) 2023-02-17 09:08:00 [facility] VANCOM[facility]IN RANDOM LEVEL 2023-02-17 09:08:00 [facility] WITHOUT DIFF 2023-02-17 09:08:00 [facility] 2023-02-17 09:08:00 Wilmer Cote [facility] POCT GLUCOSE (AUTOMATED) 2023-02-17 02:12:00 Michael Cote [facility] POCT GLUCOSE (AUTOMATED) 2023-02-17 02:12:00 Michael Cote [facility] POCT GLUCOSE (AUTOMATED) 2023-02-16 21:14:00 Michael Cote [facility] POCT GLUCOSE (AUTOMATED) 2023-02-16 21:14:00 Michael Cote [facility] POCT GLUCOSE (AUTOMATED) 2023-02-16 16:11:00 Michael Cote [facility] POCT GLUCOSE (AUTOMATED) 2023-02-16 16:11:00 Michael Cote manolo [facility] POCT GLUCOSE (AUTOMATED) 2023-02-16 12:29:00 Mcihael Cote manolo [facility] POCT GLUCOSE (AUTOMATED) 2023-02-16 12:29:00 Michael Cote [facility] PHOSPHORUS 2023-02-16 11:23:00 Wilmer Cote [facility] MAGNESIUM 2023-02-16 11:23:00 Wilmer Cote [facility] BASIC METABOLIC PANEL (NA, K, CL, CO2, GLUCOSE, BUN, CREATININE, CA) 2023-02-16 11:23:00 Wilmer Cote [facility] N-TERMINAL PRO-BNP 2023-02-16 11:23:00 Wilmer Cote [facility] PHOSPHORUS 2023-02-16 11:23:00 [facility]-16 11:23:00 [facility] BASIC METABOLIC PANEL (NA, K, CL, CO2, GLUCOSE, BUN, CREATININE, CA) 2023-02-16 11:23:00 [facility] N-[facility]MINAL PRO-BNP 2023-02-16 11:23:00 Wilmer Cote [facility] CBC WITHOUT DIFF 2023-02-16 08:45:00 Wilmer Cote [facility] CBC WITHOUT DIFF 2023-02-16 08:45:00 Wilmer Cote [facility] POCT GLUCOSE (AUTOMATED) 2023-02-16 01:11:00 Michael Cote [facility] POCT GLUCOSE (AUTOMATED) 2023-02-16 01:11:00 Michael Cote [facility] POCT GLUCOSE (AUTOMATED) 2023-02-15 21:24:00 Michael Cote [facility] POCT GLUCOSE (AUTOMATED) 2023-02-15 21:24:00 Michael Cote [facility] POCT GLUCOSE (AUTOMATED) 2023-02-15 17:01:00 Michael Cote [facility] POCT GLUCOSE (AUTOMATED) 2023-02-15 17:01:00 Michael Cote [facility] POCT GLUCOSE (AUTOMATED) 2023-02-15 12:45:00 Michael Cote [facility] POCT GLUCOSE (AUTOMATED) 2023-02-15 12:45:00 Michael Cote [facility] PHOSPHORUS 2023-02-15 09:51:00 Wilmer Cote [facility] MAGNESIUM 2023-02-15 09:51:00 Wilmer Cote [facility] BASIC METABOLIC PANEL (NA, K, CL, CO2, GLUCOSE, BUN, CREATININE, CA) 2023-02-15 09:51:00 Wilmer Cote [facility] VANCOMYCIN TROUGH 2023-02-15 09:51:00 Andre Ruggiero [facility] CBC WITHOUT DIFF 2023-02-15 09:51:00 Wilmer Cote [facility] N-TERMINAL PRO-BNP 2023-02-15 09:51:00 Wilmer Cote [facility] PHOSPHORUS 2023-02-15 09:51:00 Wilmer Cote [facility] MAGNESIUM 2023-02-15 09:51:00 Wilmer Cote [facility] BASIC METABOLIC PANEL (NA, K, CL, CO2, GLUCOSE, BUN, CREATININE, CA) 2023-02-15 09:51:00 Wilmer Cote [facility] VANCOMYCIN TROUGH 2023-02-15 09:51:00 Andre Ruggiero [facility] CBC WITHOUT DIFF 2023-02-15 09:51:00 Wilmer Cote [facility] N-TERMINAL PRO-BNP 2023-02-15 09:51:00 Wilmer Cote [facility] POCT GLUCOSE (AUTOMATED) 2023-02-15 01:42:00 Michael Cote [facility] POCT GLUCOSE (AUTOMATED) 2023-02-15 01:42:00 Michael Cote [facility] POCT GLUCOSE (AUTOMATED) 2023-02-14 21:24:00 Michael Cote [facility] POCT GLUCOSE (AUTOMATED) 2023-02-14 21:24:00 Michael Cote [facility] XR CHEST 1 VW 2023-02-14 21:20:02 [facility] 2023-02-14 21:20:02 Ervin Carpenter [facility] VANCOMYCIN TROUGH 2023-02-14 19:08:00 Andre Ruggiero [facility] VANCOMYCIN TROUGH 2023-02-14 19:08:00 Andre Ruggiero [facility] URINALYSIS 2023-02-14 16:53:00 Daniele Villela [facility] URINE CULTURE 2023-02-14 16:53:00 Tika [facility] URINALYSIS 2023-02-14 16:53:00 Daniele Villela [facility] URINE CULTURE 2023-02-14 16:53:00 Tika [facility] POCT GLUCOSE (AUTOMATED) 2023-02-14 16:19:00 Michael Cote [facility] POCT GLUCOSE (AUTOMATED) 2023-02-14 16:19:00 Michael Cote [facility] POCT GLUCOSE (AUTOMATED) 2023-02-14 12:38:00 Michael Cote [facility] POCT GLUCOSE (AUTOMATED) 2023-02-14 12:38:00 Michael Cote [facility] PHOSPHORUS 2023-02-14 09:28:00 [facility] MAGNESIUM 2023-02-14 09:28:00 [facility]OLIC PANEL (NA, K, CL, CO2, GLUCOSE, BUN, CREATININE, CA) 2023-02-14 09:28:00 [facility] CBC WITH DIFF 2023-02-14 09:28[facility] 2023-02-14 09:28:00 Wilmer Cote [facility] PHOSPHORUS 2023-02-14 09:28:00 [facility] 2023-02-14 09:28:00 [facility] BASIC METABOLIC PANEL (NA, K, CL, CO2, GLUCOSE, BUN, CREATININE, CA) 2023-02-14 09:28:00 [facility] CBC WITH DIFF 2023-02-14 09:28:[address] [facility]MIN[facility]-B[facility] 2023-02-14 09:28:00 Wilmer Cote [facility] POCT GLUCOSE (AUTOMATED) 2023-02-14 01:04:00 Michael Cote [facility] POCT GLUCOSE (AUTOMATED) 2023-02-14 01:04:00 Michael Cote [facility] POCT GLUCOSE (AUTOMATED) 2023-02-13 21:26:00 Michael Cote [facility] POCT GLUCOSE (AUTOMATED) 2023-02-13 21:26:00 Michael Cote [facility] POCT GLUCOSE (AUTOMATED) 2023-02-13 17:18:00 Michael Cote [facility] POCT GLUCOSE (AUTOMATED) 2023-02-13 17:18:00 Michael Cote [facility] VANCOMYCIN TROUGH 2023-02-13 16:39:00 Andre Ruggiero [facility] VANCOMYCIN TROUGH 2023-02-13 16:39:00 Andre Ruggiero [facility] POCT GLUCOSE (AUTOMATED) 2023-02-13 12:54:00 Michael Cote [facility] POCT GLUCOSE (AUTOMATED) 2023-02-13 12:54:00 Michael Cote [facility] BLOOD CULTURE SCREEN 2023-02-13 10:03:00 Inez Cote i [facility] BLOOD CULTURE SCREEN 2023-02-13 10:03[facility]23-02-13 10:00:00 Rocael [facility] BLOOD CULTURE SCREEN 2023-02-13 10:00:00 Rocael [facility] PHOSPHORUS 2023-02-13 09:47:00 [facility] 2023-02-13 09:47:00 Rocael [facility] BASIC METABOLIC PANEL (NA, K, CL, CO2, GLUCOSE, BUN, CREATININE, CA) 2023-02-13 09:47:00 [facility]FF 2023-02-13 09:47:00 Wilmer Cote [facility] HEPATITIS B SURFACE ANTIBODY 2023-02-13 09:47:00 Samantha [facility] HEPATITIS B SURFACE ANTIGEN 2023-02-13 09:47:00 Samantha [facility] PHOSPHORUS 2023-02-13 09:47:00 [facility] 2023-02-13 09:47:00 Rocael [facility] BASIC METABOLIC PANEL (NA, K, CL, CO2, GLUCOSE, BUN, CREATININE, CA) 2023-02-13 09:47:00 Rocael [facility] CBC WITH DIFF 2023-02-13 09:47:00 [place]TIBODY 2023-02-13 09:47:00 Samantha [facility] HEPATITIS B SURFACE ANTIGEN 2023-02-13 09:47:00 Samantha Wil [facility] POCT GLUCOSE (AUTOMATED) 2023-02-13 01:13:00 Michael Cote [facility] POCT GLUCOSE (AUTOMATED) 2023-02-13 01:13:00 Michael Cote [facility] POCT GLUCOSE (AUTOMATED) 2023-02-12 21:23:00 Michael Cote [facility] POCT GLUCOSE (AUTOMATED) 2023-02-12 21:23:00 Michael Cote [facility] WOUND/ASPIRATE OR ABSCESS CULTURE 2023-02-12 19:58:00 [facility] CATHE[facility] TIP C[facility] 2023-02-12 19:58:00 Inez Cote i [facility] WOUND CULTURE 2023-02-12 19:58:00 Wilmer Cote [facility] WOUND/ASPIRATE OR ABSCESS CULTURE 2023-02-12 19:58:00 Rocael [facility] CATHETER TIP CULTURE 2023-02-12 19:58:00 Inez Cote [facility] WOUND CULTURE 2023-02-12 19:58:00 Wilmer Cote [facility] TRANSTHORACIC ECHO (TTE) COMPLETE W/ CONTRAST 2023-02-12 19:38:00 [facility] TRAN[facility]ORACIC ECHO (TTE) COMPLETE W/ CONTRAST 2023-02-12 19:38:00 Wilmer Cote [facility] POCT GLUCOSE (AUTOMATED) 2023-02-12 17:00:00 Michael Cote [facility] POCT GLUCOSE (AUTOMATED) 2023-02-12 17:00:00 Michael Cote [facility] POCT GLUCOSE (AUTOMATED) 2023-02-12 12:38:00 Michael Cote [facility] POCT GLUCOSE (AUTOMATED) 2023-02-12 12:38:00 Michael Cote [facility] BASIC METABOLIC PANEL (NA, K, CL, CO2, GLUCOSE, BUN, CREATININE, CA) 2023-02-12 10:05:00 Yemi [facility] CBC WITH DIFF 2023-02-12 10:05:00 Winoleksandrwindy [facility] GLYCOSYLATED HEMOGLOBIN (A1C) 2023-02-12 10:05:00 Yemi [facility] BASIC METABOLIC PANEL (NA, K, CL, CO2, GLUCOSE, BUN, CREATININE, CA) 2023-02-12 10:05:00 Yemi [facility] CBC WITH DIFF 2023-02-12 10:05:00 Yeim [facility] GLYCOSYLATED HEMOGLOBIN (A1C) 2023-02-12 10:05:00 Yemi [facility] DISCLOSURE AND CONSENT, MEDICAL AND SURGICAL PROCEDURES 2023-02-12 05:01:00 Doctor Unassigned, [place] [facility] DISCLOSURE AND CONSENT, MEDICAL AND SURGICAL PROCEDURES 2023-02-12 05:01:00 Doctor Unassigned, [place] [facility] ASSIGNMENT OF BENEFITS 2023-02-12 02:10:17 Docto r Unassigned, [place] [facility] ASSIGNMENT OF BENEFITS 2023-02-12 02:10:17 Docto r Unassigned, [place] [facility] NOTICE OF PRIVACY PRACTICES 2023-02-12 02:08:49 Doctor Unassigned, [place] [facility] NOTICE OF PRIVACY PRACTICES 2023-02-12 02:08:49 Doctor Unassigned, [place] [facility] CONSENT/REFUSAL FOR DIAGNOSIS AND TREATMENT 2023-02-12 02:06:25 Doctor Unassigned, [place] [facility] CONSENT/REFUSAL FOR DIAGNOSIS AND TREATMENT 2023-02-12 02:06:25 Doctor Unassigned, [place] [facility] XR CHEST 1 VW 2023-02-12 02:03:00 Daniele Villela [facility] XR CHEST 1 VW 2023-02-12 02:03:00 Daniele Villela [facility] BLOOD CULTURE SCREEN 2023-02-12 01:56:00 Shamrock, Ramirez [facility] COMP. METABOLIC PANEL ([id number]) 2023-02-12 01:56:00 Shamrock, [facility] CBC WITH DIFF 2023-02-12 01:56:00 Shamrock, [facility] RAPID INFLUENZA A/B 2023-02-12 01:56:00 Shamrock, [facility] BLOOD CULTURE WORKUP 2023-02-12 01:56:00 Shamrock, [facility] GRAM POSITIVE BLOOD PATHOGENS DNA PROBE-ANAEROBIC 2023-02-12 01:56:00 Shamrock, [facility] COVID-19 (ID NOW RAPID TESTING) 2023-02-12 01:56:00 Shamrock, [facility] LAB ONLY COVID INTERPRETATION 2023-02-12 01:56:00 Shamrock, [facility] BLOOD CULTURE SCREEN 2023-02-12 01:56:00 Shamrock, Ramirez [facility] COMP. METABOLIC PANEL ([id number]) 2023-02-12 01:56:00 Shamrock, [facility] CBC WITH DIFF 2023-02-12 01:56:00 Shamrock, [facility] RAPID INFLUENZA A/B 2023-02-12 01:56:00 Shamrock, [facility] BLOOD CULTURE WORKUP 2023-02-12 01:56:00 Shamrock, [facility] GRAM POSITIVE BLOOD PATHOGENS DNA PROBE-ANAEROBIC 2023-02-12 01:56:00 Shamrock, [facility] COVID-19 (ID NOW RAPID TESTING) 2023-02-12 01:56:00 Shamrock, [facility] LAB ONLY COVID INTERPRETATION 2023-02-12 01:56:00 Shamrock, [facility] EMERGENCY DEPARTMENT DOCUMENTS 2023-02-11 05:01:00 Doctor Unassigned, [place] [facility] EMERGENCY DEPARTMENT DOCUMENTS 2023-02-11 05:01:00 Doctor Unassigned, [place] [facility] POCT GLUCOSE (AUTOMATED) 2020-08-28 21:29:00 [facility] 2020-08-28 18:00:00 Cristi [facility] POCT GLUCOSE (AUTOMATED) 2020-08-28 14:51:00 Cristi [facility] BASIC METABOLIC PANEL (NA, K, CL, CO2, GLUCOSE, BUN, CREATININE, CA) 2020-08-28 11:11:00 Charlie Medellin [facility] CBC WITH DIFF 2020-08-28 11:11:00 Charlie Medellin [facility] POCT GLUCOSE (AUTOMATED) 2020-08-28 10:12:00 Cristi [facility] POCT GLUCOSE (AUTOMATED) 2020-08-28 05:40:00 Cristi [facility] POCT GLUCOSE (AUTOMATED) 2020-08-28 01:59:00 Cristi [facility] POCT GLUCOSE (AUTOMATED) 2020-08-27 17:46:00 Cristi [facility] POCT GLUCOSE (AUTOMATED) 2020-08-27 14:31:00 Cristi [facility] BASIC METABOLIC PANEL (NA, K, CL, CO2, GLUCOSE, BUN, CREATININE, CA) 2020-08-27 11:10:00 Charlie Medellin [facility] CBC WITH DIFF 2020-08-27 11:10:00 Charlie Medellin [facility] POCT GLUCOSE (AUTOMATED) 2020-08-27 09:56:00 Cristi [facility] POCT GLUCOSE (AUTOMATED) 2020-08-27 05:34:00 Cristi [facility] POCT GLUCOSE (AUTOMATED) 2020-08-27 01:54:00 Cristi [facility] POCT GLUCOSE (AUTOMATED) 2020-08-26 23:27:00 Cristi [facility] POCT GLUCOSE (AUTOMATED) 2020-08-26 18:17:00 Cristi [facility] POCT GLUCOSE (AUTOMATED) 2020-08-26 14:25:00 Jake Loco [facility] BASIC METABOLIC PANEL (NA, K, CL, CO2, GLUCOSE, BUN, CREATININE, CA) 2020-08-26 11:10:00 Charlie Medellin [facility] CBC WITH DIFF 2020-08-26 11:10:00 Charlie Medellin [facility] POCT GLUCOSE (AUTOMATED) 2020-08-26 10:00:00 Jake Loco [facility] POCT GLUCOSE (AUTOMATED) 2020-08-26 05:40:00 Cristi [facility] POCT GLUCOSE (AUTOMATED) 2020-08-26 01:51:00 Cristi [facility] POCT GLUCOSE (AUTOMATED) 2020-08-25 23:09:00 Cristi [facility] POCT GLUCOSE (AUTOMATED) 2020-08-25 19:15:00 Cristi [facility] POCT GLUCOSE (AUTOMATED) 2020-08-25 14:28:00 Cristi [facility] MAGNESIUM 2020-08-25 12:12:00 [facility]OL[facility] PAN[facility] (NA, K, CL, CO2, GLUCOSE, BUN, CREATININE, CA) 2020-08-25 12:12:00 Charlie Medellin [facility] CBC WITH DIFF 2020-08-25 12:11:00 Charlie Medellin [facility] POCT GLUCOSE (AUTOMATED) 2020-08-25 09:36:00 Jake Loco [facility] POCT GLUCOSE (AUTOMATED) 2020-08-25 05:45:00 Cristi [facility] POCT GLUCOSE (AUTOMATED) 2020-08-25 03:26:00 Cristi [facility] BLOOD CULTURE SCREEN 2020-08-25 00:51:00 Cristel Nuñez [facility] POCT GLUCOSE (AUTOMATED) 2020-08-24 22:12:00 Cristi [facility] HB DIRECT ANTIGLOBULIN (POLY SPEC 2020-08-24 21:20:00 Charlie Medellin [facility] BLOOD CULTURE SCREEN 2020-08-24 21:17:00 Cristel Nuñez [facility] LACTATE DEHYDROGENASE 2020-08-24 21:15:00 Charlie Medellin [facility] INTACT PTH CALCIUM GROUP 2020-08-24 21:15:00 Maria A Richard [facility] VITAMIN D, 25-OH 2020-08-24 21:15:00 Nicolasa Nuñez [facility] MICROALBUMIN URINE 2020-08-24 19:32:00 Tom Richard [facility] UREA NITROGEN, URINE RANDOM 2020-08-24 19:32:00 Tom Richard [facility] POCT GLUCOSE (AUTOMATED) 2020-08-24 18:24:00 Cristi [facility] POCT GLUCOSE (AUTOMATED) 2020-08-24 16:30:00 Cristi [facility] POCT GLUCOSE (AUTOMATED) 2020-08-24 14:58:00 Cristi [facility] POCT GLUCOSE (AUTOMATED) 2020-08-24 12:02:00 Jake Loco [facility] MAGNESIUM 2020-08-24 10:47:00 Nicolasa Nuñez [facility] BASIC METABOLIC PANEL (NA, K, CL, CO2, GLUCOSE, BUN, CREATININE, CA) 2020-08-24 10:47:00 Nicolasa Nuñez [facility] CBC WITH DIFF 2020-08-24 10:47:00 Nicolasa Nuñez [facility] GLYCOSYLATED HEMOGLOBIN (A1C) 2020-08-24 10:47:00 Charlie Medellin [facility] RETICULOCYTES AUTOMATED 2020-08-24 10:47:00 Shelia Medellin am [facility] POCT GLUCOSE (AUTOMATED) 2020-08-24 02:54:00 Jake Loco [facility] RESPIRATORY PANEL BY PCR 2020-08-24 02:48:00 Binta Nuñez [facility] HAPTOGLOBIN, SERUM 2020-08-24 02:46:00 Charlie Medellin [facility] PROCALCITONIN 2020-08-24 02:46:00 [facility] POCT GLUCOSE (AUTOMATED) 2020-08-24 02:18:00 Jake Loco [facility] US RETROPERITONEAL LIMITED 2020-08-24 00:37:37 Nicolasa Nuñez [facility] PHOSPHORUS 2020-08-23 23:12:00 Nicolasa Nuñez [facility] HEPATIC FUNCTION PANEL (46194) (ALB,T.PRO,BILI T,BU/BC,ALT,AST,ALK PHOS) 2020-08-23 23:12:00 Nicolasa Nuñez [facility] IRON PANEL 2020-08-23 23:12:00 Nicolasa Nuñez [facility] URINALYSIS 2020-08-23 23:12:00 Nicolasa Nuñez [facility] PROTEIN CREAT RATIO URINE RANDOM 2020-08-23 23:12:00 [facility] 2020-08-23 23:12:00 Cristel Nuñez [facility] POCT GLUCOSE (AUTOMATED) 2020-08-23 22:41:00 Jake Loco [facility] COVID-19 (ID NOW RAPID TESTING) 2020-08-23 21:53:00 [facility] INTERPRETATION 2020-08-23 21:53:00 Jennie Thurman [facility] POCT GLUCOSE (AUTOMATED) 2020-08-23 21:03:00 Doc tor Unassigned, [place] [facility] PHOSPHORUS 2020-08-23 20:35:00 Nicolasa Nuñez [facility] FERRITIN SERUM 2020-08-23 20:35:00 Nicolasa Nuñez [facility] TROPONIN I 2020-08-23 20:35:00 Mago Burkett [facility] BASIC METABOLIC PANEL (NA, K, CL, CO2, GLUCOSE, BUN, CREATININE, CA) 2020-08-23 20:35:00 Kwadwo [facility] DIFF CONSULT INTERPRETATION 2020-08-23 20:35:00 [place] [facility] CBC WITH DIFF 2020-08-23 [facility] 2020-08-23 20:35:00 Nicolasa Nuñez [facility] AC PANEL 20 + LACTIC ACID 2020-08-23 20:30:00 Kwadwo [facility] XR CHEST 1 VW 2020-08-23 20:05[facility] Start Date/Time End Date/Time Encounter Type Admission Type Attending [facility] Care Department Encounter ID Source 2023-11-27 13:40:00 2023-11-27 13:40:00 Outpatient R NATHANIEL MOSES [facility] [id number] [facility] 2023-10-17 08:45:00 2023-10-17 08:45:00 Outpatient R [facility] [id number] [facility] 2023-09-25 06:28:00 2023-09-25 09:59:00 Emergency X JOI CORDOVA [facility] ERT [id number] [facility] 2023-09-25 06:28:00 2023-09-25 09:59:00 Emergency Joi Cordova [facility] .840.114 350.1.13.10 4.2.7.2.686 [id number] [facility] 2023-09-24 09:30:00 2023-09-24 10:19:51 Outpatient R TAPAN CLARK [facility] [id number] [facility] 2023-09-24 09:30:00 2023-09-24 10:19:51 Office Visit Tapan Clark [facility] OFF[facility] ..840.114 350.1.13.10 4.2.7.2.686 [id number] [facility] 2023-09-19 08:30:00 2023-09-19 10:46:28 Outpatient R ANTONINA GORDONLO ANNA GARVIN, [facility] [id number] [facility] 2023-09-19 08:30:00 2023-09-19 10:46:28 Office Visit Wilfrido Garvin [facility] MEDICAL OFFICE BUILDING 1.2.840.114 350.1.13.10 4.2.7.2.686 [id number] [facility] 2023-09-12 08:30:00 2023-09-12 08:30:00 Outpatient R TAYA GORDONGualberto [facility] [id number] [facility] 2023-08-28 00:00:00 2023-08-28 00:00:00 Patient Secure Msg Doctor Unassigned, [place] [facility] 1.2.840.114 350.1.13.10 4.2.7.2.686 [id number] [facility] 2023-08-20 00:00:00 2023-08-20 00:00:00 Orders Only Doctor Unassigned, [place] [facility] 1.2.840.114 350.1.13.10 4.2.7.2.686 [id number] [facility] 2023-08-19 00:00:00 2023-08-19 00:00:00 Telephone Nathaniel Moses [facility] ADONAY DIASYALE [facility] NAL BUILDING 1..840.114 350.1.13.10 4.2.7.2.686 [id number] [facility] 2023-08-18 14:20:00 2023-08-18 15:53:05 Outpatient KIERAN FUENTES HOWARD [facility] [id number] [facility] 2023-08-18 14:20:00 2023-08-18 15:53:05 Office Visit Kieran Wahl [facility] ADONAY JOHN MEDICAL OFFICE BUILDING 1.2840.114 350.1.13.10 4.2.7.2.686 [id number] [facility] 2023-08-07 14:00:00 2023-08-07 15:00:36 Outpatient R [facility] [id number] [facility] 2023-08-07 14:00:00 2023-08-07 15:00:36 Office Visit Aurelia [facility] BUILDING 1.20.114 350.1.13.10 4.2.7.2.686 [id number] [facility] 2023-08-06 00:00:00 2023-08-06 00:00:00 Transition of Care Marian Gonzalez 1.2840.114 350.1.13.10 4.2.7.2.686 [id number] [facility] 2023-08-03 22:39:00 2023-08-05 16:52:00 Out[facility] [id number] [facility] 2023-08-03 22:39:00 2023-08-05 16:52:00 Emergency Wendy Singh, Taya Portillo, Nate Whyte [facility] 1.2840.114 350.1.13.10 4.2.7.2.686 [id number] [facility] 2023-07-09 00:00:00 2023-07-09 00:00:00 Telephone Aurelia [facility] BUILDING 1.2840.114 350.1.13.10 4.2.7.2.686 [id number] [facility] 2023-06-23 14:00:00 2023-06-23 14:00:00 Outpatient R WILFRIDO GARVIN TAYATAYA GUERRERO [facility] [id number] [facility] 2023-06-16 10:30:00 2023-06-16 10:30:00 Outpatient R KATHARINA UGALDE [facility] [id number] [facility] 2023-06-13 10:30:00 2023-06-13 10:30:00 Outpatient R ANNAALMA CHAUDHRYVEDGualberto TAYA ROSAALMA GARVIN TAYA [facility] [id number] [facility] 2023-06-09 08:33:15 2023-06-09 23:59:00 Outpatient R SUPRIYA OROZCO MYRNA [facility] [id number] [facility] 2023-06-09 08:20:00 2023-06-09 23:59:00 Hospital Encounter Supriya Orozco [facility] 1..114 350.1.13.10 4.2.7.2.686 [id number] [facility] 2023-06-09 00:00:00 2023-06-09 00:00:00 Patient Secure Rustam Barbosa [facility] 1..114 350.1.13.10 4.2.7.2.686 [id number] [facility] 2023-06-04 00:00:00 2023-06-04 00:00:00 Orders Only Doctor Unassigned, [place] [facility] 1..114 350.1.13.10 4.2.7.2.686 [id number] [facility] 2023-06-03 00:00:00 2023-06-03 00:00:00 Transition of Care Junie Plascencia 1.2.840.114 350.1.13.10 4.2.7.2.686 [id number] [facility] 2023-05-17 06:28:00 2023-05-30 16:30:00 Inpatient X SUPRIYA OROZCO MYRNA [facility] [id number] [facility] 2023-05-17 06:28:00 2023-05-30 16:30:00 Hospital Encounter Jim Thomas, Adiel Orozco, Supriya Adams, Meir Myers, Sudeep Chapin [facility] 1.2.840.114 350.1.13.10 4.2.7.2.686 [id number] [facility] 2023-05-20 13:39:24 2023-05-20 13:39:24 Anesthesia Event SamiSonu 1.2.840.1 30660.1.1 3.104.2.7 [id number] [facility] 2023-05-17 00:00:00 2023-05-17 00:00:00 Travel 1.2.840.1 [id number] 3.104.2.7 .[id number] .8 1.2.840.114 350.1.13.10 4.2.7.3.698 [id number] [facility] 2023-02-19 00:00:00 2023-02-19 00:00:00 Transition of Care Arben Butler 1.2.840.114 350.1.13.10 4.2.7.2.686 [id number] [facility] 2023-02-11 20:38:00 2023-02-18 17:49:00 Inpatient X WILMER COTE [facility] [id number] [facility] 2023-02-11 20:38:00 2023-02-18 17:49:00 Hospital Encounter Daniele Villela Jelani [facility] 1.2.840.114 350.1.13.10 4.2.7.2.686 [id number] [facility] 2023-02-17 12:20:00 2023-02-17 13:46:00 Surgery Natalya Quiroz [facility] [place] 1.2.840.114 350.1.13.10 4.2.7.2.686 [id number] [facility] 2020-08-29 00:00:00 2020-08-29 00:00:00 Transition of Care Daiana Marian Estrada 1.2.840.114 350.1.13.10 4.2.7.2.686 [id number] [facility] 2020-08-29 00:00:00 2020-08-29 00:00:00 Telephone Nicolasa Nuñez [facility] 1.2.840.114 350.1.13.10 4.2.7.2.686 [id number] [facility] 2020-08-23 13:44:00 2020-08-28 17:10:00 Hospital Encounter Jennie Thurman, Jake Ruggiero, Ronni [facility] 1.2840.114 350.1.13.10 4.2.7.2.686 [id number] [facility] 2020-08-23 13:44:00 2020-08-23 13:44:00 Emergency X JENNIE THURMAN [facility] ERT [id number] [facility] Results Test Description Test Time Test Comments Results Result Co mments Source [facility] 13:32:33* Test Item Value Reference Range Interpretation Comme nts PHOSPHORUS (test code = 9911514892) 7.2 mg/dL 2.5-5.0 H Lab Interpretation (test cod e = 07169-5) Abnormal [facility] [id number] 11:21:47* Test Item Value Reference Range Interpretation Comme nts IRON (test code = 5598822172) 26 ug/dL 50-160 L TIBC (test code = 8428044635) 190 ug/dL 250-410 L % FE SAT (test code = 1993505295) 14 % 20-50 L Lab Interpretation (test cod e = 56731-3) Abnormal [facility] Metabolic Panel (NA, K, CL, CO2, GLUCOSE, BUN, CREATININE, CA)2023-08-05 11:05:46* Test Item Value Reference Range Interpretation Comme nts NA (test code = 3537527324) 137 mmol/L 135-145 K (test code = 8190406002) 4.8 mmol/L 3.5-5.0 CL (test code = 4494655623) 103 mmol/L 98-108 CO2 TOTAL (test code = 9074557301) 19 mmol/L 23-31 L AGAP (test code = 8840486796) 15 2-16 BUN (test code = 4230421026) 61 mg/dL 7-23 H GLUCOSE (test code = 3455226082) 99 mg/dL 70-110 CREATININE (test code = 4235060030) 10.82 mg/dL 0.60-1.25 H CALCIUM (test code = 6695322373) 8.1 mg/dL 8.6-10.6 L eGFR (test code = 08306-8) 5.5 mL/min/1.73m2 CKD-EPI eGFR (2020). Assuming creatinine has been stable day-to-day for at least three months, the eGFR indicates Category G5 (<= 14mL/min/1.73 m2) Lab Interpretation (test code = 88951-7) Abnormal [facility]2024-01-30 11:05:46* Test Item Value Reference Range Interpretation Comme nts MAGNESIUM (test code = 6435207518) 2.0 mg/dL 1.7-2.4 Lab Interpretation (test cod e = 38128-5) Normal [facility] with [id number] 10:38:39* Test Item Value Reference Range Interpretation Comme nts WBC (test code = 6690-2) 12.79 See_Comment H [Automated messa ge] The system which generated this result transmitted reference range: 4.20 - 10.70 10*3/?L. The reference range was not used to interpret this result as normal/abnormal. RBC (test code = 789-8) 3.54 See_Comment L [Automated messa ge] The system which generated this result transmitted reference range: 4.26 - 5.52 10*6/?L. The reference range was not used to interpret this result as normal/abnormal. HGB (test code = 718-7) 9.0 g/dL 12.2-16.4 L HCT (test code = 4544-3) 28.8 % 38.4-49.3 L MCV (test code = 787-2) 81.4 fL 81.7-95.6 L MCH (test code = 785-6) 25.4 pg 26.1-32.7 L MCHC (test code = 786-4) 31.3 g/dL 31.2-35.0 RDW-SD (test code = 51962-3) 45.3 fL 38.5-51.6 RDW-CV (test code = 788-0) 15.3 % 12.1-15.4 PLT (test code = 777-3) 518 See_Comment H [Automated messa ge] The system which generated this result transmitted reference range: 150 - 328 10*3/?L. The reference range was not used to interpret this result as normal/abnormal. MPV (test code = 48260-0) 9.1 fL 9.8-13.0 L NRBC/100 WBC (test code = 8302332604) 0.0 See_Comment [Automated [employer] ssage] The system which generated this result transmitted reference range: 0.0 - 10.0 /100 WBCs. The reference range was not used to interpret this result as normal/abnormal. NRBC x10^3 (test code = 2636188659) See_Comment [Automated messa ge] The system which generated this result transmitted reference range: 10*3/?L. The reference range was not used to interpret this result as normal/abnormal. GRAN MAT (NEUT) % (test code = 770-8) 77.7 % IMM GRAN % (test code = 0094582194) 0.30 % LYMPH % (test code = 736-9) 11.2 % MONO % (test code = 5905-5) 6.5 % EOS % (test code = 713-8) 3.8 % BASO % (test code = 706-2) 0.5 % GRAN MAT x10^3(ANC) (test code = 8102540267) 9.94 10*3/uL 1.99-6.95 H IMM GRAN x10^3 (test code = 2675274759) 0.04 10*3/uL 0.00-0.06 LYMPH x10^3 (test code = 731-0) 1.43 10*3/uL 1.09-3.23 MONO x10^3 (test code = 742-7) 0.83 10*3/uL 0.36-1.02 EOS x10^3 (test code = 711-2) 0.49 10*3/uL 0.06-0.53 BASO x10^3 (test code = 704-7) 0.06 10*3/uL 0.01-0.09 Lab Interpretation (test code = 64092-5) Abnormal [facility] [id number] 21:41:53* Test Item Value Reference Range Interpretation Comme nts CRP (test code = 0413348899) 14.0 mg/dL <=0.8 H Lab Interpretation (test cod e = 77544-6) Abnormal [facility]ritin [id number] 20:30:35* Test Item Value Reference Range Interpretation Comme nts FERRITIN (test code = 6144405479) 422.0 ng/mL 18.0-464.0 DAKSHA (test code = DAKSHA) Biotin has been reported to cause a negative bias, interpret results relative to patient's use of biotin. Lab Interpretation (test code = 34880-7) Normal [facility] METABOLIC PANEL (NA, K, CL, CO2, GLUCOSE, BUN, CREATININE, CA)2023-08-04 19:53:07* Test Item Value Reference Range Interpretation Comme nts NA (test code = 5452136311) 139 mmol/L 135-145 K (test code = 9019605545) 4.3 mmol/L 3.5-5.0 CL (test code = 0253710531) 104 mmol/L 98-108 CO2 TOTAL (test code = 7382521423) 22 mmol/L 23-31 L AGAP (test code = 5536159742) 13 2-16 BUN (test code = 6033608551) 56 mg/dL 7-23 H GLUCOSE (test code = 6144950410) 79 mg/dL 70-110 CREATININE (test code = 7962008071) 9.35 mg/dL 0.60-1.25 H CALCIUM (test code = 2895236911) 8.4 mg/dL 8.6-10.6 L eGFR (test code = 19173-9) 6.6 mL/min/1.73m2 CKD-EPI eGFR (2020). Assuming creatinine has been stable day-to-day for at least three months, the eGFR indicates Category G5 (<= 14mL/min/1.73 m2) Lab Interpretation (test code = 46955-4) Abnormal [facility]oundSedimentation [id number] 18:08:53* Test Item Value Reference Range Interpretation Comme nts ESR (test code = 04625-3) 120 See_Comment H [Automated messa ge] The system which generated this result transmitted reference range: 2 - 30 mm/HR. The reference range was not used to interpret this result as normal/abnormal. Lab Interpretation (test code = 29492-9) Abnormal [facility] WITH [id number] 17:48:10* Test Item Value Reference Range Interpretation Comme nts WBC (test code = 6690-2) 11.70 See_Comment H [Automated messa ge] The system which generated this result transmitted reference range: 4.20 - 10.70 10*3/?L. The reference range was not used to interpret this result as normal/abnormal. RBC (test code = 789-8) 3.54 See_Comment L [Automated messa ge] The system which generated this result transmitted reference range: 4.26 - 5.52 10*6/?L. The reference range was not used to interpret this result as normal/abnormal. HGB (test code = 718-7) 9.1 g/dL 12.2-16.4 L HCT (test code = 4544-3) 29.6 % 38.4-49.3 L MCV (test code = 787-2) 83.6 fL 81.7-95.6 MCH (test code = 785-6) 25.7 pg 26.1-32.7 L MCHC (test code = 786-4) 30.7 g/dL 31.2-35.0 L RDW-SD (test code = 13607-3) 46.3 fL 38.5-51.6 RDW-CV (test code = 788-0) 15.2 % 12.1-15.4 PLT (test code = 777-3) 485 See_Comment H [Automated messa ge] The system which generated this result transmitted reference range: 150 - 328 10*3/?L. The reference range was not used to interpret this result as normal/abnormal. MPV (test code = 38496-7) 9.2 fL 9.8-13.0 L NRBC/100 WBC (test code = 5587692971) 0.0 See_Comment [Automated [employer] ssage] The system which generated this result transmitted reference range: 0.0 - 10.0 /100 WBCs. The reference range was not used to interpret this result as normal/abnormal. NRBC x10^3 (test code = 5779738656) See_Comment [Automated [employer] ge] The system which generated this result transmitted reference range: 10*3/?L. The reference range was not used to interpret this result as normal/abnormal. GRAN MAT (NEUT) % (test code = 770-8) 77.4 % IMM GRAN % (test code = 1503837658) 0.30 % LYMPH % (test code = 736-9) 12.6 % MONO % (test code = 5905-5) 5.3 % EOS % (test code = 713-8) 3.7 % BASO % (test code = 706-2) 0.7 % GRAN MAT x10^3(ANC) (test code = 0769279028) 9.07 10*3/uL 1.99-6.95 H IMM GRAN x10^3 (test code = 9300118786) 0.03 10*3/uL 0.00-0.06 LYMPH x10^3 (test code = 731-0) 1.47 10*3/uL 1.09-3.23 MONO x10^3 (test code = 742-7) 0.62 10*3/uL 0.36-1.02 EOS x10^3 (test code = 711-2) 0.43 10*3/uL 0.06-0.53 BASO x10^3 (test code = 704-7) 0.08 10*3/uL 0.01-0.09 Lab Interpretation (test code = 52694-4) Abnormal [facility] W WO [id number] 17:14:52MR LUMBAR SPINE W WO CONTRAST HISTORY: Bone mass or bone pain, lumbar spine, aggressive features onxray COMPARISON: Prior lumbar imaging. TECHNIQUE: MRI of the lumbar spine was done with and withoutcontrast on 3Tesla magnet. FINDINGS: Normal lumbar lordosis. The vertebral bodies are normal in height and inalignment. The conus medullaris terminates at T12-L1. The cauda equinanerve roots are unremarkable. Multifocal almost homogenous diffuse T1 hypointense of the background bonemarrow, likely related to patient's known history of end- stage renaldisease. Redemonstration of L4-L5 right side lobular T1 isointense, T2/STIRhyperintense with evident enhancement on postcontrast images seen involvingL4 vertebral body superiorly extending from the right inferior corner andextending posteriorly to the right pedicle, this is associated withedema/enhancement seen involving mainly L4 vertebral body and to a lesserdegree L5 vertebral body, this edema/enhancement extends into thecorresponding intervertebral disc and the subjacent L4-5 Schmorl's nodes.There is associated anterior epidural fullness/enhancement with no definitecollections, these are likely reactive to the aforementioned process. Additional multilevel Schmorl's nodes with surrounding edema, representingacute/subacute Schmorl's nodes (can be a source of back pain). L1- L2: No significant spinal canal stenosis or neural foraminal narrowing. L2-L3: No significant spinal canal stenosis or neural foraminal narrowing. L3-L4: No significant spinal canal stenosis or neural foraminal narrowing L4-L5: Mild diffuse disc bulge asymmetricto the right with moderate facetarthrosis that results in mild bilateral neural foraminal narrowing. Thereis mild spinal canal stenosis. L5-S1: No significant spinal canal stenosis or neural foraminal narrowingUnBaylor Scott & [facility] TempleCT LUMBAR SP[facility] WO [id number] 15:05:33CT LUMBAR SPINE WO CONTRAST HISTORY: Compression fracture, lumbar Low back pain, cancer suspected TECHNIQUE: ?Contiguous thin section axial images were obtained of thelumbar spine. ?Sagittal and coronal reformatted images were generated.Images were reviewed in soft-tissue and bone detail. ? COMPARISON: CT L-spine on 05/17/2023. MR lumbar spine 05/18/2023. FINDINGS: For the purposes of this dictation, the last well-defined interspace iscalled L5-S1. There are 5 omc-kqz-vsyazht lumbar type vertebrae. ?There is normal lumbarlordosis. Sclerosis of the L4 and L5 vertebral bodies with large lobulated lucentlesion involving the L4 and L5 vertebral bodies as well as theintervertebral disc with possible extension into the spinal canal, markedlyprogressed from the comparison lumbar spine MRI dated 05/18/2023. The vertebral bodies are otherwise normal in height and alignment. Disc spaces are otherwise normal in height and signal intensity. Intact cortical margins of the visualized sacrum and pelvic bones. [facility]+ VW [id number] 12:26:36EXAM: XR ANKLE 3+ VW RIGHT HISTORY: right ankle pain COMPARISON: None FINDINGS: Radiographs of the right ankle demonstrate no acute fracture ordislocation. The ankle mortise is preserved. Calcaneal enthesophyteformation is present. Diabetic type vascular calcifications are noted.Remote fracture fragments versus ossifications are seen along the plantaraspect of the calcaneus. The distal Achilles tendon is mildly thickened.Dorsal midfoot osteophytosis is seen. Focal lucency is present along themedial talar dome.[facility] Comp. Metabolic Panel (19820)2023-08-04 06:30:04* Test Item Value Reference Range Interpretation Comme nts NA (test code = 2752032595) 139 mmol/L 135-145 K (test code = 6342366552) 4.3 mmol/L 3.5-5.0 CL (test code = 1621153500) 105 mmol/L 98-108 CO2 TOTAL (test code = 5975550505) 21 mmol/L 23-31 L AGAP (test code = 9646674774) 13 2-16 BUN (test code = 4852067907) 50 mg/dL 7-23 H GLUCOSE (test code = 9868632392) 100 mg/dL 70-110 CREATININE (test code = 2398712502) 7.77 mg/dL 0.60-1.25 H TOTAL BILI (test code = 9995081061) 0.5 mg/dL 0.1-1.1 CALCIUM (test code = 2155141319) 8.3 mg/dL 8.6-10.6 L T PROTEIN (test code = 1907596795) 8.5 g/dL 6.3-8.2 H ALBUMIN (test code = 8550037718) 4.0 g/dL 3.5-5.0 ALK PHOS (test code = 4070288012) 104 U/L 34-122 ALTv (test code = 1742-6) 9 U/L 5-50 AST(SGOT) (test code = 4363280076) 18 U/L 13-40 eGFR (test code = 56720-2) 8.2 mL/min/1.73m2 CKD-EPI eGFR (2020). Assuming creatinine has been stable day-to-day for at least three months, the eGFR indicates Category G5 (<= 14mL/min/1.73 m2) Lab Interpretation (test code = 04483-9) Abnormal [facility]oundIncision and Btrdjejs1115-87-44 06:11:14 Wendy Singh FNP ? ? 08/04/2023 12:12 AMIncision and Drainage Date/Time: 08/04/2023 12:11 AM Performed by: Wendy Singh FNPAuthorized by: Wendy Singh FNP ?Consent: ?Consent obtained: ?Verbal, written and emergent situation ?Consent given by: ?Patient ?Risks, benefits, and alte rnatives were discussed: yes ? ?Risks discussed: ?Bleeding, incomplete drainage, pain, infection and damage to other organs ?Alternatives discussed: ?ReferralUniversal protocol: ?Procedure explained and questions answered to patient or proxy's satisfaction: yes ? ?Patient identity confirmed: ?Verbally with patient and arm bandLocation: ?Type: ?Abscess ?Location: ?Head ?Head location: ?ScalpPre-procedure details: ?Skin preparation: ?Povidone- iodineSedation: ?Sedation type: ?NoneAnesthesia: ?Anesthesia method: ?Local infiltration ?Local anesthetic: ?Lidocaine 1% w/o epiProcedure type: ?Complexit y: ?SimpleProcedure details: ?Ultrasound guidance: no ? ?Needle aspiration: no ? ?Incision types: ?Stab incision and single straight ?Incision depth: ?Dermal ?Wound management: ?Probed and deloculated and irrigated with saline ?Drainage: ?Purulent and bloody ?Drainage amount: ?Moderate ?Wound treatment: ?Drain placed ?Packing materials: ?07/10 in iodoform gauzePost-procedure details: ?Procedure completion: ?[facility] with [id number] 05:44:05* Test Item Value Reference Range Interpretation Comme nts WBC (test code = 6690-2) 13.36 See_Comment H [Automated message] The system which generated this result transmitted reference range: 4.20 - 10.70 10*3/?L. The reference range was not used to interpret this result as normal/abnormal. RBC (test code = 789-8) 3.49 See_Comment L [Automated message] The system which generated this result transmitted reference range: 4.26 - 5.52 10*6/?L. The reference range was not used to interpret this result as normal/abnormal. HGB (test code = 718-7) 9.2 g/dL 12.2-16.4 L HCT (test code = 4544-3) 29.2 % 38.4-49.3 L MCV (test code = 787-2) 83.7 fL 81.7-95.6 MCH (test code = 785-6) 26.4 pg 26.1-32.7 MCHC (test code = 786-4) 31.5 g/dL 31.2-35.0 RDW-SD (test code = 39198-6) 46.2 fL 38.5-51.6 RDW-CV (test code = 788-0) 15.5 % 12.1-15.4 H PLT (test code = 777-3) 467 See_Comment H [Automated message] The system which generated this result transmitted reference range: 150 - 328 10*3/?L. The reference range was not used to interpret this result as normal/abnormal. MPV (test code = 93771-3) 9.2 fL 9.8-13.0 L NRBC/100 WBC (test code = 8008215574) 0.0 See_Comment [Automated message] The system which generated this result transmitted reference range: 0.0 - 10.0 /100 WBCs. The reference range was not used to interpret this result as normal/abnormal. NRBC x10^3 (test code = 1911603581) See_Comment [Automated message] The system which generated this result transmitted reference range: 10*3/?L. The reference range was not used to interpret this result as normal/abnormal. GRAN MAT (NEUT) % (test code = 770-8) 76.2 % IMM GRAN % (test code = 7233213462) 0.40 % LYMPH % (test code = 736-9) 13.0 % MONO % (test code = 5905-5) 7.1 % EOS % (test code = 713-8) 2.8 % BASO % (test code = 706-2) 0.5 % GRAN MAT x10^3(ANC) (test code = 7148817994) 10.18 10*3/uL 1.99-6.95 H IMM GRAN x10^3 (test code = 7307112812) 0.05 10*3/uL 0.00-0.06 LYMPH x10^3 (test code = 731-0) 1.74 10*3/uL 1.09-3.23 MONO x10^3 (test code = 742-7) 0.95 10*3/uL 0.36-1.02 EOS x10^3 (test code = 711-2) 0.37 10*3/uL 0.06-0.53 BASO x10^3 (test code = 704-7) 0.07 10*3/uL 0.01-0.09 Lab Interpretation (test code = 01097-9) Abnormal [facility] METABOLIC PANEL (NA, K, CL, CO2, GLUCOSE, BUN, CREATININE, CA)2023-05-28 10:45:34* Test Item Value Reference Range Interpretation Comme nts NA (test code = 5254565238) 135 mmol/L 135-145 K (test code = 3997255583) 4.3 mmol/L 3.5-5.0 Slight hemolysis CL (test code = 5317101350) 102 mmol/L 98-108 CO2 TOTAL (test code = 7583859389) 21 mmol/L 23-31 L AGAP (test code = 0194804550) 12 2-16 BUN (test code = 6891320083) 35 mg/dL 7-23 H Slight hemolysis GLUCOSE (test code = 1994943581) 84 mg/dL 70-110 CREATININE (test code = 5567101137) 8.24 mg/dL 0.60-1.25 H CALCIUM (test code = 1576182249) 8.8 mg/dL 8.6-10.6 eGFR (test code = 41669-8) 7.6 mL/min/1.73m2 CKD-EPI eGFR (2020). Assuming creatinine has been stable day-to-day for at least three months, the eGFR indicates Category G5 (<= 14mL/min/1.73 m2) Lab Interpretation (test code = 98811-0) [facility] 10:45:34* Test Item Value Reference Range Interpretation Comme nts MAGNESIUM (test code = 3208923768) 1.8 mg/dL 1.7-2.4 Lab Interpretation (test cod e = 83708-2) [facility] [id number] 10:19:46* Test Item Value Reference Range Interpretation Comme nts WBC (test code = 6690-2) 10.11 See_Comment [Automated messa ge] The system which generated this result transmitted reference range: 4.20 - 10.70 10*3/?L. The reference range was not used to interpret this result as normal/abnormal. RBC (test code = 789-8) 4.12 See_Comment L [Automated messa ge] The system which generated this result transmitted reference range: 4.26 - 5.52 10*6/?L. The reference range was not used to interpret this result as normal/abnormal. HGB (test code = 718-7) 10.3 g/dL 12.2-16.4 L HCT (test code = 4544-3) 33.1 % 38.4-49.3 L MCV (test code = 787-2) 80.3 fL 81.7-95.6 L MCH (test code = 785-6) 25.0 pg 26.1-32.7 L MCHC (test code = 786-4) 31.1 g/dL 31.2-35.0 L RDW-SD (test code = 00853-5) 45.5 fL 38.5-51.6 RDW-CV (test code = 788-0) 15.7 % 12.1-15.4 H PLT (test code = 777-3) 354 See_Comment H [Automated messa ge] The system which generated this result transmitted reference range: 150 - 328 10*3/?L. The reference range was not used to interpret this result as normal/abnormal. MPV (test code = 08819-2) 9.5 fL 9.8-13.0 L NRBC/100 WBC (test code = 7796621013) 0.0 See_Comment [Automated [employer] ssage] The system which generated this result transmitted reference range: 0.0 - 10.0 /100 WBCs. The reference range was not used to interpret this result as normal/abnormal. NRBC x10^3 (test code = 5385908800) See_Comment [Automated messa ge] The system which generated this result transmitted reference range: 10*3/?L. The reference range was not used to interpret this result as normal/abnormal. GRAN MAT (NEUT) % (test code = 770-8) 66.2 % IMM GRAN % (test code = 9709094491) 0.50 % LYMPH % (test code = 736-9) 21.5 % MONO % (test code = 5905-5) 7.5 % EOS % (test code = 713-8) 3.5 % BASO % (test code = 706-2) 0.8 % GRAN MAT x10^3(ANC) (test code = 2216121583) 6.70 10*3/uL 1.99-6.95 IMM GRAN x10^3 (test code = 6259441250) 0.05 10*3/uL 0.00-0.06 LYMPH x10^3 (test code = 731-0) 2.17 10*3/uL 1.09-3.23 MONO x10^3 (test code = 742-7) 0.76 10*3/uL 0.36-1.02 EOS x10^3 (test code = 711-2) 0.35 10*3/uL 0.06-0.53 BASO x10^3 (test code = 704-7) 0.08 10*3/uL 0.01-0.09 Lab Interpretation (test code = 43132-4) Abnormal [facility] GLUCOSE (AUTOMATED)2023-05-26 22:36:19* Test Item Value Reference Range Interpretation Comme nts POCT GLU (test code = 3729630583) 101 mg/dL 70-110 Notified Provide r Lab Interpretation (test code = 21916-5) Normal [facility] GLUCOSE (AUTOMATED)2023-05-26 18:05:15* Test Item Value Reference Range Interpretation Comme nts POCT GLU (test code = 1296604307) 97 mg/dL 70-110 Notified Provide r Lab Interpretation (test code = 91652-3) Normal [facility] GLUCOSE (AUTOMATED)2023-05-26 14:27:28* Test Item Value Reference Range Interpretation Comme nts POCT GLU (test code = 0126273601) 89 mg/dL 70-110 Notified Provide r Lab Interpretation (test code = 11291-4) Normal [facility] GLUCOSE (AUTOMATED)2023-05-25 21:17:28* Test Item Value Reference Range Interpretation Comme nts POCT GLU (test code = 4529996851) 111 mg/dL 70-110 H Lab Interpretation (test cod e = 41511-1) [facility]normal [facility] Whole [id number] 14:44:55* Test Item Value Reference Range Interpretation Comme nts LACTIC ACID (test code = 9089103158) 1.78 mmol/L 0.50-2.20 QUES Lab Interpretation (test cod e = 71024-1) Normal [facility] GLUCOSE (AUTOMATED)2023-05-25 14:22:15* Test Item Value Reference Range Interpretation Comme nts POCT GLU (test code = 3802301616) 84 mg/dL 70-110 Lab Interpretation (test cod e = 81057-6) [facility] [id number] 19:01:21* Test Item Value Reference Range Interpretation Comme nts Blood Culture-Aerobic (test code = 77262-2) No organisms isolated No growth Previous preliminary verified result was Culture In Progress on 05/19/2023 at 1601 CSTPrevious preliminary verified result was No growth at 24 hours on 05/20/2023 at 1301 CSTPrevious preliminary verified result was No growth at 48 hours on 05/21/2023 at 1301 CSTPrevious preliminary verified result was No growth at 72 hours on 05/22/2023 at 1301 FLIGHT RADIO OPERATOR Blood Culture-Anaerobic (test code = 90468-4) No organisms isolated No growth Previous preliminary verified result was Culture In Progress on 05/19/2023 at 1601 CSTPrevious preliminary verified result was No growth at 24 hours on 05/20/2023 at 1301 CSTPrevious preliminary verified result was No growth at 48 hours on 05/21/2023 at 1301 CSTPrevious preliminary verified result was No growth at 72 hours on 05/22/2023 at 1301 FLIGHT RADIO OPERATOR Lab Interpretation (test code = 44535-1) [facility] [id number] 21:31:38* Test Item Value Reference Range Interpretation Comme nts WBC (test code = 6690-2) 7.94 See_Comment [Automated messa ge] The system which generated this result transmitted reference range: 4.20 - 10.70 10*3/?L. The reference range was not used to interpret this result as normal/abnormal. RBC (test code = 789-8) 4.47 See_Comment [Automated messa ge] The system which generated this result transmitted reference range: 4.26 - 5.52 10*6/?L. The reference range was not used to interpret this result as normal/abnormal. HGB (test code = 718-7) 11.1 g/dL 12.2-16.4 L HCT (test code = 4544-3) 36.0 % 38.4-49.3 L MCV (test code = 787-2) 80.5 fL 81.7-95.6 L MCH (test code = 785-6) 24.8 pg 26.1-32.7 L MCHC (test code = 786-4) 30.8 g/dL 31.2-35.0 L RDW-SD (test code = 20194-3) 45.9 fL 38.5-51.6 RDW-CV (test code = 788-0) 15.7 % 12.1-15.4 H PLT (test code = 777-3) 340 See_Comment H [Automated messa ge] The system which generated this result transmitted reference range: 150 - 328 10*3/?L. The reference range was not used to interpret this result as normal/abnormal. MPV (test code = 52005-2) 9.4 fL 9.8-13.0 L NRBC/100 WBC (test code = 2413750340) 0.0 See_Comment [Automated [employer] ssage] The system which generated this result transmitted reference range: 0.0 - 10.0 /100 WBCs. The reference range was not used to interpret this result as normal/abnormal. NRBC x10^3 (test code = 9769886427) See_Comment [Automated messa ge] The system which generated this result transmitted reference range: 10*3/?L. The reference range was not used to interpret this result as normal/abnormal. GRAN MAT (NEUT) % (test code = 770-8) 63.9 % IMM GRAN % (test code = 8367386663) 0.30 % LYMPH % (test code = 736-9) 21.0 % MONO % (test code = 5905-5) 10.7 % EOS % (test code = 713-8) 3.3 % BASO % (test code = 706-2) 0.8 % GRAN MAT x10^3(ANC) (test code = 7955778658) 5.08 10*3/uL 1.99-6.95 IMM GRAN x10^3 (test code = 1932743165) 0.00-0.06 LYMPH x10^3 (test code = 731-0) 1.67 10*3/uL 1.09-3.23 MONO x10^3 (test code = 742-7) 0.85 10*3/uL 0.36-1.02 EOS x10^3 (test code = 711-2) 0.26 10*3/uL 0.06-0.53 BASO x10^3 (test code = 704-7) 0.06 10*3/uL 0.01-0.09 Lab Interpretation (test code = 66386-0) [facility] - Peripheral Vein # [id number] 21:01:23* Test Item Value Reference Range Interpretation Comme nts Blood Culture-Aerobic (test code = 25321-6) No organisms isolated No growth Previous preliminary verified result was Culture In Progress on 05/17/2023 at 1801 CSTPrevious preliminary verified result was No growth at 24 hours on 05/18/2023 at 1501 CSTPrevious preliminary verified result was No growth at 48 hours on 05/19/2023 at 1501 CSTPrevious preliminary verified result was No growth at 72 hours on 05/20/2023 at 1501 FLIGHT RADIO OPERATOR Blood Culture-Anaerobic (test code = 03147-9) No organisms isolated No growth Previous preliminary verified result was Culture In Progress on 05/17/2023 at 1801 CSTPrevious preliminary verified result was No growth at 24 hours on 05/18/2023 at 1501 CSTPrevious preliminary verified result was No growth at 48 hours on 05/19/2023 at 1501 CSTPrevious preliminary verified result was No growth at 72 hours on 05/20/2023 at 1501 FLIGHT RADIO OPERATOR Lab Interpretation (test code = 95329-8) [facility]LECTR[facility], [id number] 15:57:22* Test Item Value Reference Range Interpretation Comme nts T PROTEIN (test code = 2194038407) 7.4 g/dL 6.3-8.2 ALBUMIN (test code = 1817949086) 3.5 g/dL 3.0-4.8 ALPHA 1 (test code = 6224955378) 0.3 g/dL 0.2-0.4 ALPHA 2 (test code = 2463601575) 0.8 g/dL 0.6-1.2 BETA (test code = 2301205093) 0.9 g/dL 0.7-1.4 GAMMA (test code = 8309013585) 1.9 g/dL 1.0-1.8 H Electrophoresis Interpretation (test code = 8659032085) Serum Protein electrophoresis interpretation:Gamma globulin at upper limit of normal in serum. No M spike present in serum.No urine submitted for testing. Lab Interpretation (test code = 53105-0) [facility]normal [facility]LECTROP[facility]IS, [id number] 15:57:22* Test Item Value Reference Range Interpretation Comme nts T PROTEIN (test code = 0466755298) 7.4 g/dL 6.3-8.2 ALBUMIN (test code = 1303754192) 3.5 g/dL 3.0-4.8 ALPHA 1 (test code = 8782241640) 0.3 g/dL 0.2-0.4 ALPHA 2 (test code = 8166457231) 0.8 g/dL 0.6-1.2 BETA (test code = 4013563678) 0.9 g/dL 0.7-1.4 GAMMA (test code = 1891734351) 1.9 g/dL 1.0-1.8 H Electrophoresis Interpretation (test code = 9023740487) Serum Protein electrophoresis interpretation:Gamma globulin at upper limit of normal in serum. No M spike present in serum.No urine submitted for testing. Lab Interpretation (test code = 20836-6) [facility]normal [facility]2023-[facility]-16 15:38:31* Test Item Value Reference Range Interpretation Comme nts PHOSPHORUS (test code = 5120291469) 7.4 mg/dL 2.5-5.0 H Lab Interpretation (test cod e = 79880-3) [facility]normal [facility]2023-[facility]-16 15:38:31* Test Item Value Reference Range Interpretation Comme nts PHOSPHORUS (test code = 5861056362) 7.4 mg/dL 2.5-5.0 H Lab Interpretation (test cod e = 41045-6) [facility]normal [facility]2023-[facility]-16 07:54:51* Test Item Value Reference Range Interpretation Comme nts MAGNESIUM (test code = 1196677696) 2.0 mg/dL 1.7-2.4 Lab Interpretation (test cod e = 29412-1) [facility]OL[facility] (NA, K, CL, CO2, GLUCOSE, BUN, CREATININE, CA)2023-05-22 07:54:51* Test Item Value Reference Range Interpretation Comme nts NA (test code = 0383653098) 134 mmol/L 135-145 L K (test code = 8132025614) 4.7 mmol/L 3.5-5.0 CL (test code = 9264834340) 98 mmol/L 98-108 CO2 TOTAL (test code = 2015471569) 20 mmol/L 23-31 L AGAP (test code = 4900117713) 16 2-16 BUN (test code = 2710710838) 59 mg/dL 7-23 H GLUCOSE (test code = 2951062379) 101 mg/dL 70-110 CREATININE (test code = 2724513379) 11.52 mg/dL 0.60-1.25 H CALCIUM (test code = 8362605108) 8.6 mg/dL 8.6-10.6 eGFR (test code = 20149-8) 5.1 mL/min/1.73m2 CKD-EPI eGFR (2020). Assuming creatinine has been stable day-to-day for at least three months, the eGFR indicates Category G5 (<= 14mL/min/1.73 m2) Lab Interpretation (test code = 40618-1) Abnormal [facility] METABOLIC PANEL (NA, K, CL, CO2, GLUCOSE, BUN, CREATININE, CA)2023-05-22 07:54:51* Test Item Value Reference Range Interpretation Comme [facility] NA (test code = 3636295221) 134 mmol/L 135-145 L K (test code = 3512875635) 4.7 mmol/L 3.5-5.0 CL (test code = 1869358963) 98 mmol/L 98-108 CO2 TOTAL (test code = 9883206724) 20 mmol/L 23-31 L AGAP (test code = 3058308601) 16 2-16 BUN (test code = 8587075450) 59 mg/dL 7-23 H GLUCOSE (test code = 8077173668) 101 mg/dL 70-110 CREATININE (test code = 0474002626) 11.52 mg/dL 0.60-1.25 H CALCIUM (test code = 2326205565) 8.6 mg/dL 8.6-10.6 eGFR (test code = 14602-3) 5.1 mL/min/1.73m2 CKD-EPI eGFR (2020). Assuming creatinine has been stable day-to-day for at least three months, the eGFR indicates Category G5 (<= 14mL/min/1.73 m2) Lab Interpretation (test code = 11177-4) [facility]normal [facility]23-[facility]16 07:54:51* Test Item Value Reference Range Interpretation Comme nts MAGNESIUM (test code = 0596341310) 2.0 mg/dL 1.7-2.4 Lab Interpretation (test cod e = 88015-6) Normal [facility] WITH [id number] 07:35:11* Test Item Value Reference Range Interpretation Comme nts WBC (test code = 6690-2) 10.19 See_Comment [Automated [employer]] The system which generated this result transmitted reference range: 4.20 - 10.70 10*3/?L. The reference range was not used to interpret this result as normal/abnormal. RBC (test code = 789-8) 4.35 See_Comment [Automated messa ge] The system which generated this result transmitted reference range: 4.26 - 5.52 10*6/?L. The reference range was not used to interpret this result as normal/abnormal. HGB (test code = 718-7) 11.1 g/dL 12.2-16.4 L HCT (test code = 4544-3) 34.4 % 38.4-49.3 L MCV (test code = 787-2) 79.1 fL 81.7-95.6 L MCH (test code = 785-6) 25.5 pg 26.1-32.7 L MCHC (test code = 786-4) 32.3 g/dL 31.2-35.0 RDW-SD (test code = 45995-1) 45.8 fL 38.5-51.6 RDW-CV (test code = 788-0) 15.9 % 12.1-15.4 H PLT (test code = 777-3) 353 See_Comment H [Automated messa ge] The system which generated this result transmitted reference range: 150 - 328 10*3/?L. The reference range was not used to interpret this result as normal/abnormal. MPV (test code = 93285-8) 9.2 fL 9.8-13.0 L NRBC/100 WBC (test code = 8324323340) 0.0 See_Comment [Automated me ssage] The system which generated this result transmitted reference range: 0.0 - 10.0 /100 WBCs. The reference range was not used to interpret this result as normal/abnormal. NRBC x10^3 (test code = 5620827537) See_Comment [Automated messa ge] The system which generated this result transmitted reference range: 10*3/?L. The reference range was not used to interpret this result as normal/abnormal. GRAN MAT (NEUT) % (test code = 770-8) 67.6 % IMM GRAN % (test code = 0320108232) 0.40 % LYMPH % (test code = 736-9) 18.7 % MONO % (test code = 5905-5) 9.7 % EOS % (test code = 713-8) 3.2 % BASO % (test code = 706-2) 0.4 % GRAN MAT x10^3(ANC) (test code = 6990587698) 6.88 10*3/uL 1.99-6.95 IMM GRAN x10^3 (test code = 5831940418) 0.04 10*3/uL 0.00-0.06 LYMPH x10^3 (test code = 731-0) 1.91 10*3/uL 1.09-3.23 MONO x10^3 (test code = 742-7) 0.99 10*3/uL 0.36-1.02 EOS x10^3 (test code = 711-2) 0.33 10*3/uL 0.06-0.53 BASO x10^3 (test code = 704-7) 0.04 10*3/uL 0.01-0.09 Lab Interpretation (test code = 58539-0) Abnormal [facility] WITH [id number] 07:35:11* Test Item Value Reference Range Interpretation Comme nts WBC (test code = 6690-2) 10.19 See_Comment [Automated messa ge] The system which generated this result transmitted reference range: 4.20 - 10.70 10*3/?L. The reference range was not used to interpret this result as normal/abnormal. RBC (test code = 789-8) 4.35 See_Comment [Automated messa ge] The system which generated this result transmitted reference range: 4.26 - 5.52 10*6/?L. The reference range was not used to interpret this result as normal/abnormal. HGB (test code = 718-7) 11.1 g/dL 12.2-16.4 L HCT (test code = 4544-3) 34.4 % 38.4-49.3 L MCV (test code = 787-2) 79.1 fL 81.7-95.6 L MCH (test code = 785-6) 25.5 pg 26.1-32.7 L MCHC (test code = 786-4) 32.3 g/dL 31.2-35.0 RDW-SD (test code = 27538-1) 45.8 fL 38.5-51.6 RDW-CV (test code = 788-0) 15.9 % 12.1-15.4 H PLT (test code = 777-3) 353 See_Comment H [Automated messa ge] The system which generated this result transmitted reference range: 150 - 328 10*3/?L. The reference range was not used to interpret this result as normal/abnormal. MPV (test code = 69648-0) 9.2 fL 9.8-13.0 L NRBC/100 WBC (test code = 9419605317) 0.0 See_Comment [Automated [employer] ssage] The system which generated this result transmitted reference range: 0.0 - 10.0 /100 WBCs. The reference range was not used to interpret this result as normal/abnormal. NRBC x10^3 (test code = 3619118420) See_Comment [Automated messa ge] The system which generated this result transmitted reference range: 10*3/?L. The reference range was not used to interpret this result as normal/abnormal. GRAN MAT (NEUT) % (test code = 770-8) 67.6 % IMM GRAN % (test code = 0272465006) 0.40 % LYMPH % (test code = 736-9) 18.7 % MONO % (test code = 5905-5) 9.7 % EOS % (test code = 713-8) 3.2 % BASO % (test code = 706-2) 0.4 % GRAN MAT x10^3(ANC) (test code = 3807309544) 6.88 10*3/uL 1.99-6.95 IMM GRAN x10^3 (test code = 5115757496) 0.04 10*3/uL 0.00-0.06 LYMPH x10^3 (test code = 731-0) 1.91 10*3/uL 1.09-3.23 MONO x10^3 (test code = 742-7) 0.99 10*3/uL 0.36-1.02 EOS x10^3 (test code = 711-2) 0.33 10*3/uL 0.06-0.53 BASO x10^3 (test code = 704-7) 0.04 10*3/uL 0.01-0.09 Lab Interpretation (test code = 35575-7) Abnormal [facility] Culture - Peripheral [id number] 14:58:27* Test Item Value Reference Range Interpretation Comme nts Blood Culture-Aerobic (test code = 02569-0) Culture positive. See Blood Culture Workup for additional information. No growth AA Previous preliminary verified result was Culture In Progress on 05/17/2023 at 1801 FLIGHT RADIO OPERATOR Blood Culture-Anaerobic (test code = 37005-9) Culture positive. See Blood Culture Workup for additional information. No growth AA Previous preliminary verified result was Culture In Progress on 05/17/2023 at 1801 FLIGHT RADIO OPERATOR Lab Interpretation (test code = 98572-6) Abnormal [facility] Culture - Peripheral [id number] 14:58:27* Test Item Value Reference Range Interpretation Comme nts Blood Culture-Aerobic (test code = 51803-0) Culture positive. See Blood Culture Workup for additional information. No growth AA Previous preliminary verified result was Culture In Progress on 05/17/2023 at 1801 FLIGHT RADIO OPERATOR Blood Culture-Anaerobic (test code = 35787-4) Culture positive. See Blood Culture Workup for additional information. No growth AA Previous preliminary verified result was Culture In Progress on 05/17/2023 at 1801 FLIGHT RADIO OPERATOR Lab Interpretation (test code = 91876-9) Abnormal [facility] METABOLIC PANEL (NA, K, CL, CO2, GLUCOSE, BUN, CREATININE, CA)2023-05-19 12:45:47* Test Item Value Reference Range Interpretation Comme nts NA (test code = 4225040535) 137 mmol/L 135-145 K (test code = 7130449157) 4.9 mmol/L 3.5-5.0 CL (test code = 1930375660) 104 mmol/L 98-108 CO2 TOTAL (test code = 6158660828) 17 mmol/L 23-31 L AGAP (test code = 0729293188) 16 2-16 BUN (test code = 1552617538) 49 mg/dL 7-23 H GLUCOSE (test code = 6612868938) 78 mg/dL 70-110 CREATININE (test code = 6661193444) 9.37 mg/dL 0.60-1.25 H CALCIUM (test code = 5562987038) 8.3 mg/dL 8.6-10.6 L eGFR (test code = 58635-5) 6.5 mL/min/1.73m2 CKD-EPI eGFR (2020). Assuming creatinine has been stable day-to-day for at least three months, the eGFR indicates Category G5 (<= 14mL/min/1.73 m2) Lab Interpretation (test code = 41067-6) [facility] 12:45:47* Test Item Value Reference Range Interpretation Comme nts MAGNESIUM (test code = 6636375667) 1.9 mg/dL 1.7-2.4 Lab Interpretation (test cod e = 14800-4) [facility] 12:45:47* Test Item Value Reference Range Interpretation Comme nts PHOSPHORUS (test code = 5879252201) 7.5 mg/dL 2.5-5.0 H Lab Interpretation (test cod e = 02897-4) [facility] POSITIVE BLOOD PATHOGENS DNA EXGWW-[id number] 19:36:44* Test Item Value Reference Range Interpretation Comme nts Coagulase Negative Staphylococcus (test code = 73299-2) Positive Negative A DAKSHA (test code = DAKSHA) Coagulase negative Staphylococcus (CoNS) detected by DNA probe. ?CoNS often contaminate blood cultures from skin colonization during phlebotomy. ?Preferred management is to repeat blood cultures, and monitor off antibiotics. ?Contamination is suggested by culture growth after 48 hours, or growth in single culture (i.e., one of two sets). ?True bacteremia is suggested by the fever, hypotension, and leukocytosis that are not explained by an alternative infection, or indwelling foreign devices that appear infected (catheters, lines, or prostheses). Consider Infectious Diseases consultation if differentiation of CoNS bacteremia from contamination is uncertain. If clinical context suggests true bacteremia, preferred therapy is vancomycin. Please contact the Antimicrobial Stewardship Program with questions.Pager: ?[phone] See blood culture result for additional information. Testing included eleven identification and three resistancemarker targets. Lab Interpretation (test code = 51330-9) [facility] POSITIVE BLOOD PATHOGENS DNA [id number] 19:36:44* Test Item Value Reference Range Interpretation Comme nts Coagulase Negative Staphylococcus (test code = 18568-9) Positive Negative A DAKSHA (test code = DAKSHA) Coagulase negative Staphylococcus (CoNS) detected by DNA probe. ?CoNS often contaminate blood cultures from skin colonization during phlebotomy. ?Preferred management is to repeat blood cultures, and monitor off antibiotics. ?Contamination is suggested by culture growth after 48 hours, or growth in single culture (i.e., one of two sets). ?True bacteremia is suggested by the fever, hypotension, and leukocytosis that are not explained by an alternative infection, or indwelling foreign devices that appear infected (catheters, lines, or prostheses). Consider Infectious Diseases consultation if differentiation of CoNS bacteremia from contamination is uncertain. If clinical context suggests true bacteremia, preferred therapy is vancomycin. Please contact the Antimicrobial Stewardship Program with questions.Pager: ?[phone] See blood culture result for additional information. Testing included eleven identification and three resistancemarker targets. Lab Interpretation (test code = 21820-2) [facility] [id number] 15:50:37* Test Item Value Reference Range Interpretation Comme nts HS CRP (test code = 8602582337) 4.13 mg/dL <=0.74 H Lab Interpretation (test cod e = 90786-5) [facility] [id number] 15:50:37* Test Item Value Reference Range Interpretation Comme nts HS CRP (test code = 5203924044) 4.13 mg/dL <=0.74 H Lab Interpretation (test cod e = 55801-9) [facility]normal [facility]-Reactive [id number] 20:53:34* Test Item Value Reference Range Interpretation Comme nts CRP (test code = 6664846830) 4.1 mg/dL <=0.8 H Lab Interpretation (test cod e = 67755-3) [facility]normal [facility]-Reactive [id number] 20:53:34* Test Item Value Reference Range Interpretation Comme nts CRP (test code = 3733291932) 4.1 mg/dL <=0.8 H Lab Interpretation (test cod e = 51348-4) [facility]normal [facility]oundFerritin [id number] 19:24:58* Test Item Value Reference Range Interpretation Comme nts FERRITIN (test code = 6736215608) 366.0 ng/mL 18.0-464.0 DAKSHA (test code = DAKSHA) Biotin has been reported to cause a negative bias, interpret results relative to patient's use of biotin. Lab Interpretation (test code = 48114-1) Normal [facility]oundFerritin [id number] 19:24:58* Test Item Value Reference Range Interpretation Comme nts FERRITIN (test code = 3896160502) 366.0 ng/mL 18.0-464.0 DAKSHA (test code = DAKSHA) Biotin has been reported to cause a negative bias, interpret results relative to patient's use of biotin. Lab Interpretation (test code = 74951-3) [facility]oundThyroid Stimulating [id number] 19:21:21 * Test Item Value Reference Range Interpretation Comme nts TSH (test code = 8062261464) 1.53 See_Comment [Automated [employer] ge] The system which generated this result transmitted reference range: 0.45 - 4.70 mIU/L. The reference range was not used to interpret this result as normal/abnormal. Lab Interpretation (test code = 26388-7) Normal [facility]oundThyroid Stimulating [id number] 19:21:21 * Test Item Value Reference Range Interpretation Comme nts TSH (test code = 8011937600) 1.53 See_Comment [Automated [employer]] The system which generated this result transmitted reference range: 0.45 - 4.70 mIU/L. The reference range was not used to interpret this result as normal/abnormal. Lab Interpretation (test code = 31841-6) Normal [facility]oundPROSTATIC SPECIFIC [id number] 19:21:00 * Test Item Value Reference Range Interpretation Comme nts PSA (test code = 4054975212) 1.15 ng/mL <=4.00 DAKSHA (test code = DAKSHA) Biotin has been reported to cause a negative bias, interpret results relative to patient's use of biotin. Lab Interpretation (test code = 74792-9) Normal [facility]oundPROSTATIC SPECIFIC [id number] 19:21:00 * Test Item Value Reference Range Interpretation Comme nts PSA (test code = 6265847315) 1.15 ng/mL <=4.00 DAKSHA (test code = DAKSHA) Biotin has been reported to cause a negative bias, interpret results relative to patient's use of biotin. Lab Interpretation (test code = 58416-5) Normal [facility]oundGlycosylated Hemoglobin [id number] 19:12:16 * Test Item Value Reference Range Interpretation Comme nts HGB A1C (test code = 4548-4) 5.6 % 4.0-5.7 DAKSHA (test code = DAKSHA) Reference RangesNormal: <5.7%Prediabetes: 5.7 - 6.4%Diabetes: > 6.5% Lab Interpretation (test code = 41193-7) Normal [facility]oundGlycosylated Hemoglobin [id number] 19:12:16 * Test Item Value Reference Range Interpretation Comme nts HGB A1C (test code = 4548-4) 5.6 % 4.0-5.7 DAKSHA (test code = DAKSHA) Reference RangesNormal: <5.7%Prediabetes: 5.7 - 6.4%Diabetes: > 6.5% Lab Interpretation (test code = 23055-9) Normal [facility]oundProthrombin Time / [id number] 18:55:58* Test Item Value Reference Range Interpretation Comme [facility] PROTIME PATIENT (test code = 5964-2) 12.0 See_Comment [Automated messa ge] The system which generated this result transmitted reference range: 10.1 - 12.6 Seconds. The reference range was not used to interpret this result as normal/abnormal. INR (test code = 6301-6) 1.1 Normal INR <1.1; Warfarin Therapeutic range 2.0 to 3.0 or 2.5 to 3.5, depending upon the indications. Lab Interpretation (test code = 69730-5) [facility]58* Test Item Value Reference Range Interpretation Comme [facility] APTT Patient (test code = 3173-2) 33 See_Comment [Automated messa ge] The system which generated this result transmitted reference range: 26 - 36 Seconds. The reference range was not used to interpret this result as normal/abnormal. Lab Interpretation (test code = 59395-7) Normal [facility]oundProthrombin Time / [id number] 18:55:58* Test Item Value Reference Range Interpretation Comme [facility] PROTIME PATIENT (test code = 5964-2) 12.0 See_Comment [Automated messa ge] The system which generated this result transmitted reference range: 10.1 - 12.6 Seconds. The reference range was not used to interpret this result as normal/abnormal. INR (test code = 6301-6) 1.1 Normal INR <1.1; Warfarin Therapeutic range 2.0 to 3.0 or 2.5 to 3.5, depending upon the indications. Lab Interpretation (test code = 05548-8) [facility] 18:55:58* Test Item Value Reference Range Interpretation Comme [facility] APTT Patient (test code = 3173-2) 33 See_Comment [Automated messa ge] The system which generated this result transmitted reference range: 26 - 36 Seconds. The reference range was not used to interpret this result as normal/abnormal. Lab Interpretation (test code = 47840-6) Normal [facility]oundLipid Panel(46002)(Total Cholesterol, Triglycerides, HDL)2023-05-17 18:49:56* Test Item Value Reference Range Interpretation Comme nts CHOL (test code = 6286545451) 161 mg/dL 120-200 HDL (test code = 0546193438) 39 mg/dL >=40 L HDLC RATIO (test code = 2891629866) 4.1 <=5.0 TRIG (test code = 9221938460) 90 mg/dL 30-170 LDL CHOL (test code = 31523-9) 104 mg/dL <=160 VLDL (test code = 1149341553) 18 mg/dL 5-60 Lab Interpretation (test cod e = 94624-9) [facility]normal [facility]oundMagnesium Cykjv1020-72-34 18:49:56* Test Item Value Reference Range Interpretation Comme nts MAGNESIUM (test code = 8959384157) 1.8 mg/dL 1.7-2.4 Lab Interpretation (test cod e = 96482-0) Normal [facility]oundLipid Panel(59510)(Total Cholesterol, Triglycerides, HDL)2023-05-17 18:49:56* Test Item Value Reference Range Interpretation Comme nts CHOL (test code = 1767827604) 161 mg/dL 120-200 HDL (test code = 0448793013) 39 mg/dL >=40 L HDLC RATIO (test code = 7749659910) 4.1 <=5.0 TRIG (test code = 4399372833) 90 mg/dL 30-170 LDL CHOL (test code = 22144-0) 104 mg/dL <=160 VLDL (test code = 2161865513) 18 mg/dL 5-60 Lab Interpretation (test cod e = 61098-4) Abnormal [facility]oundHEPATIC FUNCTION PANEL (50589) (ALB,T.PRO,BILI T,BU/BC,ALT,AST,ALK PHOS)2023-05-17 18:49:36* Test Item Value Reference Range Interpretation Comme nts TOTAL BILI (test code = 6719913167) 0.6 mg/dL 0.1-1.1 BILI UNCON (test code = 2300852296) 0.0 mg/dL 0.1-1.1 L BILI CONJ (test code = 1501093907) 0.0 mg/dL 0.0-0.3 T PROTEIN (test code = 7038116562) 8.8 g/dL 6.3-8.2 H ALBUMIN (test code = 7787154057) 4.2 g/dL 3.5-5.0 ALK PHOS (test code = 6208788864) 108 U/L 34-122 ALTv (test code = 1742-6) 14 U/L 5-50 AST(SGOT) (test code = 2223986715) 40 U/L 13-40 Lab Interpretation (test cod e = 24744-3) [facility]normal [facility]oundHEPATIC FUNCTION PANEL (58917) (ALB,T.PRO,BILI T,BU/BC,ALT,AST,ALK PHOS)2023-05-17 18:49:36* Test Item Value Reference Range Interpretation Comme nts TOTAL BILI (test code = 7028082915) 0.6 mg/dL 0.1-1.1 BILI UNCON (test code = 2206016921) 0.0 mg/dL 0.1-1.1 L BILI CONJ (test code = 7739591310) 0.0 mg/dL 0.0-0.3 T PROTEIN (test code = 4078011271) 8.8 g/dL 6.3-8.2 H ALBUMIN (test code = 8410571335) 4.2 g/dL 3.5-5.0 ALK PHOS (test code = 0353517940) 108 U/L 34-122 ALTv (test code = 1742-6) 14 U/L 5-50 AST(SGOT) (test code = 0005792768) 40 U/L 13-40 Lab Interpretation (test cod e = 79729-0) [facility]normal [facility]oundPhosphorus [id number] 18:49:36* Test Item Value Reference Range Interpretation Comme nts PHOSPHORUS (test code = 2736765705) 7.8 mg/dL 2.5-5.0 H Lab Interpretation (test cod e = 85178-4) Abnormal [facility] METABOLIC PANEL (NA, K, CL, CO2, GLUCOSE, BUN, CREATININE, CA)2023-05-17 13:10:22* Test Item Value Reference Range Interpretation Comme nts NA (test code = 2836680029) 141 mmol/L 135-145 K (test code = 1677396029) 4.8 mmol/L 3.5-5.0 CL (test code = 3377536672) 104 mmol/L 98-108 CO2 TOTAL (test code = 1223460335) 20 mmol/L 23-31 L AGAP (test code = 8574458562) 17 2-16 H BUN (test code = 1494321810) 43 mg/dL 7-23 H GLUCOSE (test code = 1199670728) 84 mg/dL 70-110 CREATININE (test code = 3420814859) 9.17 mg/dL 0.60-1.25 H CALCIUM (test code = 6520354421) 7.2 mg/dL 8.6-10.6 L eGFR (test code = 75604-6) 6.7 mL/min/1.73m2 CKD-EPI eGFR (2020). Assuming creatinine has been stable day-to-day for at least three months, the eGFR indicates Category G5 (<= 14mL/min/1.73 m2) Lab Interpretation (test code = 43853-8) Abnormal [facility] WITH [id number] 12:57:41* Test Item Value Reference Range Interpretation Comme nts WBC (test code = 6690-2) 10.35 See_Comment [Automated [employer]] The system which generated this result transmitted reference range: 4.20 - 10.70 10*3/?L. The reference range was not used to interpret this result as normal/abnormal. RBC (test code = 789-8) 4.58 See_Comment [Automated [employer]] The system which generated this result transmitted reference range: 4.26 - 5.52 10*6/?L. The reference range was not used to interpret this result as normal/abnormal. HGB (test code = 718-7) 11.5 g/dL 12.2-16.4 L HCT (test code = 4544-3) 37.7 % 38.4-49.3 L MCV (test code = 787-2) 82.3 fL 81.7-95.6 MCH (test code = 785-6) 25.1 pg 26.1-32.7 L MCHC (test code = 786-4) 30.5 g/dL 31.2-35.0 L RDW-SD (test code = 52147-1) 48.6 fL 38.5-51.6 RDW-CV (test code = 788-0) 16.2 % 12.1-15.4 H PLT (test code = 777-3) 398 See_Comment H [Automated messa ge] The system which generated this result transmitted reference range: 150 - 328 10*3/?L. The reference range was not used to interpret this result as normal/abnormal. MPV (test code = 08015-0) 9.4 fL 9.8-13.0 L NRBC/100 WBC (test code = 9888729056) 0.0 See_Comment [Automated [employer] ssage] The system which generated this result transmitted reference range: 0.0 - 10.0 /100 WBCs. The reference range was not used to interpret this result as normal/abnormal. NRBC x10^3 (test code = 6554271747) See_Comment [Automated messa ge] The system which generated this result transmitted reference range: 10*3/?L. The reference range was not used to interpret this result as normal/abnormal. GRAN MAT (NEUT) % (test code = 770-8) 65.8 % IMM GRAN % (test code = 8689776050) 0.30 % LYMPH % (test code = 736-9) 23.9 % MONO % (test code = 5905-5) 6.7 % EOS % (test code = 713-8) 2.7 % BASO % (test code = 706-2) 0.6 % GRAN MAT x10^3(ANC) (test code = 2869933502) 6.82 10*3/uL 1.99-6.95 IMM GRAN x10^3 (test code = 7459307568) 0.03 10*3/uL 0.00-0.06 LYMPH x10^3 (test code = 731-0) 2.47 10*3/uL 1.09-3.23 MONO x10^3 (test code = 742-7) 0.69 10*3/uL 0.36-1.02 EOS x10^3 (test code = 711-2) 0.28 10*3/uL 0.06-0.53 BASO x10^3 (test code = 704-7) 0.06 10*3/uL 0.01-0.09 Lab Interpretation (test code = 54547-8) Abnormal [facility] GLUCOSE (AUTOMATED)2023-02-18 22:05:53* Test Item Value Reference Range Interpretation Comme nts POCT GLU (test code = 1728231038) 83 mg/dL 70-110 Lab Interpretation (test cod e = 92477-5) Normal [facility] GLUCOSE (AUTOMATED)2023-02-18 16:53:10* Test Item Value Reference Range Interpretation Comme nts POCT GLU (test code = 3351871672) 81 mg/dL 70-110 Lab Interpretation (test cod e = 86087-9) Normal [facility] GLUCOSE (AUTOMATED)2023-02-18 16:53:10* Test Item Value Reference Range Interpretation Comme nts POCT GLU (test code = 1789118832) 81 mg/dL 70-110 Lab Interpretation (test cod e = 52652-6) Normal [facility] GLUCOSE (AUTOMATED)2023-02-18 12:58:41* Test Item Value Reference Range Interpretation Comme nts POCT GLU (test code = 5733804479) 77 mg/dL 70-110 Lab Interpretation (test cod e = 62412-7) Normal [facility] GLUCOSE (AUTOMATED)2023-02-18 12:58:41* Test Item Value Reference Range Interpretation Comme nts POCT GLU (test code = 7051976826) 77 mg/dL 70-110 Lab Interpretation (test cod e = 23341-2) Normal [facility] GLUCOSE (AUTOMATED)2023-02-18 01:32:53* Test Item Value Reference Range Interpretation Comme nts POCT GLU (test code = 2352512096) 83 mg/dL 70-110 Lab Interpretation (test cod e = 23259-6) Normal [facility] GLUCOSE (AUTOMATED)2023-02-18 01:32:53* Test Item Value Reference Range Interpretation Comme nts POCT GLU (test code = 0329949205) 83 mg/dL 70-110 Lab Interpretation (test cod e = 64172-3) Normal [facility] GLUCOSE (AUTOMATED)2023-02-17 21:36:22* Test Item Value Reference Range Interpretation Comme nts POCT GLU (test code = 3865082008) 88 mg/dL 70-110 Lab Interpretation (test cod e = 80279-1) Normal [facility] GLUCOSE (AUTOMATED)2023-02-17 21:36:22* Test Item Value Reference Range Interpretation Comme nts POCT GLU (test code = 0504681571) 88 mg/dL 70-110 Lab Interpretation (test cod e = 55326-9) Normal [facility] GLUCOSE (AUTOMATED)2023-02-17 12:40:03* Test Item Value Reference Range Interpretation Comme nts POCT GLU (test code = 5987965742) 86 mg/dL 70-110 Lab Interpretation (test cod e = 95901-3) Normal [facility] GLUCOSE (AUTOMATED)2023-02-17 12:40:03* Test Item Value Reference Range Interpretation Comme nts POCT GLU (test code = 2809545153) 86 mg/dL 70-110 Lab Interpretation (test cod e = 64589-7) Normal [facility] GLUCOSE (AUTOMATED)2023-02-17 02:13:20* Test Item Value Reference Range Interpretation Comme nts POCT GLU (test code = 9197297378) 90 mg/dL 70-110 Lab Interpretation (test cod e = 20739-1) Normal [facility] GLUCOSE (AUTOMATED)2023-02-17 02:13:20* Test Item Value Reference Range Interpretation Comme nts POCT GLU (test code = 1840591544) 90 mg/dL 70-110 Lab Interpretation (test cod e = 72826-0) Normal [facility] GLUCOSE (AUTOMATED)2023-02-16 21:21:51* Test Item Value Reference Range Interpretation Comme nts POCT GLU (test code = 7693915337) 97 mg/dL 70-110 Lab Interpretation (test cod e = 53378-6) Normal [facility] GLUCOSE (AUTOMATED)2023-02-16 21:21:51* Test Item Value Reference Range Interpretation Comme nts POCT GLU (test code = 6017624207) 97 mg/dL 70-110 Lab Interpretation (test cod e = 50299-2) Normal [facility] GLUCOSE (AUTOMATED)2023-02-16 16:26:04* Test Item Value Reference Range Interpretation Comme nts POCT GLU (test code = 2825962970) 106 mg/dL 70-110 Lab Interpretation (test cod e = 90488-3) Normal [facility] GLUCOSE (AUTOMATED)2023-02-16 16:26:04* Test Item Value Reference Range Interpretation Comme nts POCT GLU (test code = 9935463181) 106 mg/dL 70-110 Lab Interpretation (test cod e = 62258-1) Normal [facility] GLUCOSE (AUTOMATED)2023-02-16 12:32:56* Test Item Value Reference Range Interpretation Comme nts POCT GLU (test code = 0838884756) 122 mg/dL 70-110 H Lab Interpretation (test cod e = 26549-5) Abnormal [facility] GLUCOSE (AUTOMATED)2023-02-16 12:32:56* Test Item Value Reference Range Interpretation Comme nts POCT GLU (test code = 2450925711) 122 mg/dL 70-110 H Lab Interpretation (test cod e = 68322-9) [facility] [id number] 12:03:10* Test Item Value Reference Range Interpretation Comme nts NT-proBNP (test code = 76346-4) 4060 pg/mL <=125 H DAKSHA (test code = DAKSHA) Positive: Heart Failure Likely Lab Interpretation (test code = 61178-4) [facility]normal [facility]-TERMIN[facility] [id number] 12:03:10* Test Item Value Reference Range Interpretation Comme nts NT-proBNP (test code = 52424-6) 4060 pg/mL <=125 H DAKSHA (test code = DAKSHA) Positive: Heart Failure Likely Lab Interpretation (test code = 75826-5) Abnormal [facility] METABOLIC PANEL (NA, K, CL, CO2, GLUCOSE, BUN, CREATININE, CA)2023-02-16 11:54:31* Test Item Value Reference Range Interpretation Comme nts NA (test code = 2920711032) 138 mmol/L 135-145 K (test code = 9009059413) 4.2 mmol/L 3.5-5.0 CL (test code = 4558413160) 101 mmol/L 98-108 CO2 TOTAL (test code = 1362231368) 24 mmol/L 23-31 AGAP (test code = 1262086997) 13 2-16 BUN (test code = 6953234689) 41 mg/dL 7-23 H GLUCOSE (test code = 3249669431) 113 mg/dL 70-110 H CREATININE (test code = 2023976402) 8.70 mg/dL 0.60-1.25 H CALCIUM (test code = 4788508889) 7.7 mg/dL 8.6-10.6 L eGFR (test code = 4568774113) 6.7 mL/min/1.73m2 DAKSHA (test code = DAKSHA) Association of [...] or abnormalities in imaging tests). Lab Interpretation (test code = 54236-5) [facility] 11:54:31* Test Item Value Reference Range Interpretation Comme nts MAGNESIUM (test code = 5679306631) 2.0 mg/dL 1.7-2.4 Lab Interpretation (test cod e = 66717-6) [facility] (NA, K, CL, CO2, GLUCOSE, BUN, CREATININE, CA)2023-02-16 11:54:31* Test Item Value Reference Range Interpretation Comme nts NA (test code = 9460978935) 138 mmol/L 135-145 K (test code = 7358806452) 4.2 mmol/L 3.5-5.0 CL (test code = 6920477561) 101 mmol/L 98-108 CO2 TOTAL (test code = 4652106440) 24 mmol/L 23-31 AGAP (test code = 0101606970) 13 2-16 BUN (test code = 3009000584) 41 mg/dL 7-23 H GLUCOSE (test code = 8449323962) 113 mg/dL 70-110 H CREATININE (test code = 5196034736) 8.70 mg/dL 0.60-1.25 H CALCIUM (test code = 7391439390) 7.7 mg/dL 8.6-10.6 L eGFR (test code = 8047612753) 6.7 mL/min/1.73m2 DAKSHA (test code = DAKSHA) Association of [...] or abnormalities in imaging tests). Lab Interpretation (test code = 16127-0) [facility]2023-[facility]-13 11:54:31* Test Item Value Reference Range Interpretation Comme nts MAGNESIUM (test code = 3318751851) 2.0 mg/dL 1.7-2.4 Lab Interpretation (test cod e = 73253-0) [facility]2023-[facility]-13 11:54:11* Test Item Value Reference Range Interpretation Comme nts PHOSPHORUS (test code = 2812894257) 5.6 mg/dL 2.5-5.0 H Lab Interpretation (test cod e = 34439-7) [facility]2023[facility]13 11:54:11* Test Item Value Reference Range Interpretation Comme nts PHOSPHORUS (test code = 8097713859) 5.6 mg/dL 2.5-5.0 H Lab Interpretation (test cod e = 26943-4) Abnormal [facility] GLUCOSE (AUTOMATED)2023-02-16 01:12:38* Test Item Value Reference Range Interpretation Comme nts POCT GLU (test code = 3305911835) 122 mg/dL 70-110 H Lab Interpretation (test cod e = 02756-1) Abnormal [facility] GLUCOSE (AUTOMATED)2023-02-16 01:12:38* Test Item Value Reference Range Interpretation Comme nts POCT GLU (test code = 9492006097) 122 mg/dL 70-110 H Lab Interpretation (test cod e = 05183-8) Abnormal [facility] GLUCOSE (AUTOMATED)2023-02-15 21:25:45* Test Item Value Reference Range Interpretation Comme nts POCT GLU (test code = 6377043729) 97 mg/dL 70-110 Lab Interpretation (test cod e = 30836-2) Normal [facility] GLUCOSE (AUTOMATED)2023-02-15 21:25:45* Test Item Value Reference Range Interpretation Comme nts POCT GLU (test code = 7298182923) 97 mg/dL 70-110 Lab Interpretation (test cod e = 79593-3) Normal [facility] GLUCOSE (AUTOMATED)2023-02-15 17:02:56* Test Item Value Reference Range Interpretation Comme nts POCT GLU (test code = 3081185017) 93 mg/dL 70-110 Lab Interpretation (test cod e = 41512-9) Normal [facility] GLUCOSE (AUTOMATED)2023-02-15 17:02:56* Test Item Value Reference Range Interpretation Comme nts POCT GLU (test code = 4700917717) 93 mg/dL 70-110 Lab Interpretation (test cod e = 90848-0) Normal [facility] GLUCOSE (AUTOMATED)2023-02-15 12:46:32* Test Item Value Reference Range Interpretation Comme nts POCT GLU (test code = 2956555201) 90 mg/dL 70-110 Lab Interpretation (test cod e = 49633-2) Normal [facility] GLUCOSE (AUTOMATED)2023-02-15 12:46:32* Test Item Value Reference Range Interpretation Comme nts POCT GLU (test code = 5741532082) 90 mg/dL 70-110 Lab Interpretation (test cod e = 17709-9) Normal [facility] GLUCOSE (AUTOMATED)2023-02-15 01:44:32* Test Item Value Reference Range Interpretation Comme nts POCT GLU (test code = 1771106312) 83 mg/dL 70-110 Lab Interpretation (test cod e = 29411-8) Normal [facility] GLUCOSE (AUTOMATED)2023-02-15 01:44:32* Test Item Value Reference Range Interpretation Comme nts POCT GLU (test code = 3186889938) 83 mg/dL 70-110 Lab Interpretation (test cod e = 14420-1) Normal [facility] GLUCOSE (AUTOMATED)2023-02-14 21:27:46* Test Item Value Reference Range Interpretation Comme nts POCT GLU (test code = 6044171167) 99 mg/dL 70-110 Lab Interpretation (test cod e = 50076-3) Normal [facility] GLUCOSE (AUTOMATED)2023-02-14 21:27:46* Test Item Value Reference Range Interpretation Comme nts POCT GLU (test code = 8623015144) 99 mg/dL 70-110 Lab Interpretation (test cod e = 51216-7) Normal [facility] GLUCOSE (AUTOMATED)2023-02-14 16:22:41* Test Item Value Reference Range Interpretation Comme nts POCT GLU (test code = 6653452256) 92 mg/dL 70-110 Lab Interpretation (test cod e = 71555-3) Normal [facility] GLUCOSE (AUTOMATED)2023-02-14 16:22:41* Test Item Value Reference Range Interpretation Comme nts POCT GLU (test code = 9069012813) 92 mg/dL 70-110 Lab Interpretation (test cod e = 41320-6) Normal [facility] CULTURE [id number] 14:47:38* Test Item Value Reference Range Interpretation Comme nts Blood Culture Workup (test code = 600-7) Staphylococcus aureus Organism i dentified by DNA probeFor susceptibility results, refer to culture # - [id number] Gram stain (test code = 664-3) Isolated from aerobic bottle Gram positive cocci This is an appended report. These results have been appended to a previously preliminary verified report. [facility] CULTURE [id number] 14:47:38* Test Item Value Reference Range Interpretation Comme nts Blood Culture Workup (test code = 600-7) Staphylococcus aureus Organism i dentified by DNA probeFor susceptibility results, refer to culture # - [id number] Gram stain (test code = 664-3) Isolated from aerobic bottle Gram positive cocci This is an appended report. These results have been appended to a previously preliminary verified report. [facility] GLUCOSE (AUTOMATED)2023-02-14 12:42:54* Test Item Value Reference Range Interpretation Comme nts POCT GLU (test code = 5971946550) 93 mg/dL 70-110 Lab Interpretation (test cod e = 32230-1) Normal [facility] GLUCOSE (AUTOMATED)2023-02-14 12:42:54* Test Item Value Reference Range Interpretation Comme nts POCT GLU (test code = 4825926063) 93 mg/dL 70-110 Lab Interpretation (test cod e = 92132-7) Normal [facility] GLUCOSE (AUTOMATED)2023-02-14 01:05:56* Test Item Value Reference Range Interpretation Comme nts POCT GLU (test code = 9994767027) 108 mg/dL 70-110 Lab Interpretation (test cod e = 76756-5) Normal [facility] GLUCOSE (AUTOMATED)2023-02-14 01:05:56* Test Item Value Reference Range Interpretation Comme nts POCT GLU (test code = 5119865479) 108 mg/dL 70-110 Lab Interpretation (test cod e = 65650-6) Normal [facility] GLUCOSE (AUTOMATED)2023-02-13 21:27:24* Test Item Value Reference Range Interpretation Comme nts POCT GLU (test code = 9852374858) 106 mg/dL 70-110 Lab Interpretation (test cod e = 54656-0) Normal [facility] GLUCOSE (AUTOMATED)2023-02-13 21:27:24* Test Item Value Reference Range Interpretation Comme nts POCT GLU (test code = 9913940460) 106 mg/dL 70-110 Lab Interpretation (test cod e = 41152-6) Normal [facility] GLUCOSE (AUTOMATED)2023-02-13 17:19:54* Test Item Value Reference Range Interpretation Comme nts POCT GLU (test code = 5176539947) 112 mg/dL 70-110 H Lab Interpretation (test cod e = 70943-4) Abnormal [facility] GLUCOSE (AUTOMATED)2023-02-13 17:19:54* Test Item Value Reference Range Interpretation Comme nts POCT GLU (test code = 0089572593) 112 mg/dL 70-110 H Lab Interpretation (test cod e = 23630-7) [facility] [id number] 14:38:25* Test Item Value Reference Range Interpretation Comme nts Blood Culture-Aerobic (test code = 30003-9) Culture positive. See Blood Culture Workup for additional information. No growth AA Previous preliminary verified result was Culture In Progress on 02/12/2023 at 1014 CDT Blood Culture-Anaerobic (test code = 04524-0) Culture positive. See Blood Culture Workup for additional information. No growth AA Previous preliminary verified result was Culture In Progress on 02/12/2023 at 0101 CDT Lab Interpretation (test code = 42772-5) Abnormal [facility] Culture - Peripheral # [id number] 14:38:25* Test Item Value Reference Range Interpretation Comme nts Blood Culture-Aerobic (test code = 35206-6) Culture positive. See Blood Culture Workup for additional information. No growth AA Previous preliminary verified result was Culture In Progress on 02/12/2023 at 1014 CDT Blood Culture-Anaerobic (test code = 63904-2) Culture positive. See Blood Culture Workup for additional information. No growth AA Previous preliminary verified result was Culture In Progress on 02/12/2023 at 0101 CDT Lab Interpretation (test code = 84205-2) Abnormal [facility] Culture - Peripheral # [id number] 14:37:48* Test Item Value Reference Range Interpretation Comme nts Blood Culture-Aerobic (test code = 43141-4) Culture positive. See Blood Culture Workup for additional information. No growth AA Previous preliminary verified result was Culture In Progress on 02/12/2023 at 1014 CDT Blood Culture-Anaerobic (test code = 73959-6) Culture positive. See Blood Culture Workup for additional information. No growth AA Previous preliminary verified result was Culture In Progress on 02/12/2023 at 0101 CDT Lab Interpretation (test code = 81846-4) Abnormal [facility] Culture - Peripheral # [id number] 14:37:48* Test Item Value Reference Range Interpretation Comme nts Blood Culture-Aerobic (test code = 51327-1) Culture positive. See Blood Culture Workup for additional information. No growth AA Previous preliminary verified result was Culture In Progress on 02/12/2023 at 1014 CDT Blood Culture-Anaerobic (test code = 76812-2) Culture positive. See Blood Culture Workup for additional information. No growth AA Previous preliminary verified result was Culture In Progress on 02/12/2023 at 0101 CDT Lab Interpretation (test code = 72039-5) Abnormal [facility] GLUCOSE (AUTOMATED)2023-02-13 12:55:23* Test Item Value Reference Range Interpretation Comme nts POCT GLU (test code = 0564471852) 104 mg/dL 70-110 Lab Interpretation (test cod e = 93466-5) Normal [facility] GLUCOSE (AUTOMATED)2023-02-13 12:55:23* Test Item Value Reference Range Interpretation Comme nts POCT GLU (test code = 8602744222) 104 mg/dL 70-110 Lab Interpretation (test cod e = 51371-8) Normal [facility] POSITIVE BLOOD PATHOGENS DNA [id number] 02:07:58* Test Item Value Reference Range Interpretation Comments Staphylococcus aureus (test code = 68712-5) Positive Negative A mecA (test code = 44089-6) Positive Negative A DAKSHA (test code = DAKSHA) MRSA detected by DNA probe. ?See blood culture result for additionalsusceptibility testing information. Preferred therapy for MRSA bacteremia is vancomycin. Infectious Diseases consultation is recommended. Please contact the Antimicrobial Stewardship Program with questions.ASP Pager: ?[phone] See blood culture result for additional information. Testing included eleven identification and three resistancemarker targets. Lab Interpretation (test code = 81994-1) Abnormal [facility] POSITIVE BLOOD PATHOGENS DNA [id number] 02:07:58* Test Item Value Reference Range Interpretation Comments Staphylococcus aureus (test code = 49532-3) Positive Negative A mecA (test code = 10389-4) Positive Negative A DAKSHA (test code = DAKSHA) MRSA detected by DNA probe. ?See blood culture result for additionalsusceptibility testing information. Preferred therapy for MRSA bacteremia is vancomycin. Infectious Diseases consultation is recommended. Please contact the Antimicrobial Stewardship Program with questions.ASP Pager: ?[phone] See blood culture result for additional information. Testing included eleven identification and three resistancemarker targets. Lab Interpretation (test code = 96350-5) Abnormal [facility] GLUCOSE (AUTOMATED)2023-02-13 01:14:40* Test Item Value Reference Range Interpretation Comme nts POCT GLU (test code = 0695484276) 130 mg/dL 70-110 H Lab Interpretation (test cod e = 33682-1) Abnormal [facility] GLUCOSE (AUTOMATED)2023-02-13 01:14:40* Test Item Value Reference Range Interpretation Comme nts POCT GLU (test code = 1250247906) 130 mg/dL 70-110 H Lab Interpretation (test cod e = 62345-2) Abnormal [facility] GLUCOSE (AUTOMATED)2023-02-12 21:24:28* Test Item Value Reference Range Interpretation Comme nts POCT GLU (test code = 4509305550) 100 mg/dL 70-110 Lab Interpretation (test cod e = 05483-0) Normal [facility] GLUCOSE (AUTOMATED)2023-02-12 21:24:28* Test Item Value Reference Range Interpretation Comme nts POCT GLU (test code = 1735064363) 100 mg/dL 70-110 Lab Interpretation (test cod e = 45725-5) Normal [facility] GLUCOSE (AUTOMATED)2023-02-12 17:01:20* Test Item Value Reference Range Interpretation Comme nts POCT GLU (test code = 2512952932) 117 mg/dL 70-110 H Lab Interpretation (test cod e = 74477-9) Abnormal [facility] GLUCOSE (AUTOMATED)2023-02-12 17:01:20* Test Item Value Reference Range Interpretation Comme nts POCT GLU (test code = 8519635591) 117 mg/dL 70-110 H Lab Interpretation (test cod e = 39817-2) Abnormal [facility] GLUCOSE (AUTOMATED)2023-02-12 12:39:29* Test Item Value Reference Range Interpretation Comme nts POCT GLU (test code = 9496128483) 97 mg/dL 70-110 Lab Interpretation (test cod e = 49421-1) [facility] 12:39:29* Test Item Value Reference Range Interpretation Comme [facility] POCT GLU (test code = 0185358132) 97 mg/dL 70-110 Lab Interpretation (test cod e = 38640-8) Normal [facility]. METABOLIC PANEL (57905)2023-02-12 02:38:33* Test Item Value Reference Range Interpretation Comme [facility] NA (test code = 4543364818) 134 mmol/L 135-145 L K (test code = 0160485200) 4.4 mmol/L 3.5-5.0 CL (test code = 1545971415) 100 mmol/L 98-108 CO2 TOTAL (test code = 7331276522) 21 mmol/L 23-31 L AGAP (test code = 8716580179) 13 2-16 BUN (test code = 4534491598) 26 mg/dL 7-23 H GLUCOSE (test code = 7302561058) 141 mg/dL 70-110 H CREATININE (test code = 7080120635) 7.48 mg/dL 0.60-1.25 H TOTAL BILI (test code = 8724318894) 0.8 mg/dL 0.1-1.1 CALCIUM (test code = 2475346422) 8.1 mg/dL 8.6-10.6 L T PROTEIN (test code = 3364945536) 8.7 g/dL 6.3-8.2 H ALBUMIN (test code = 1957765520) 4.2 g/dL 3.5-5.0 ALK PHOS (test code = 9638809986) 106 U/L 34-122 ALTv (test code = 1742-6) 19 U/L 5-50 AST(SGOT) (test code = 6912533346) 35 U/L 13-40 eGFR (test code = 5584676290) 8.0 mL/min/1.73m2 DAKSHA (test code = DAKSHA) Association of [...] or abnormalities in imaging tests). Lab Interpretation (test code = 72416-7) Abnormal [facility]. METABOLIC PANEL (69866)2023-02-12 02:38:33* Test Item Value Reference Range Interpretation Comme nts NA (test code = 0181259919) 134 mmol/L 135-145 L K (test code = 9279819006) 4.4 mmol/L 3.5-5.0 CL (test code = 7129796950) 100 mmol/L 98-108 CO2 TOTAL (test code = 0739859518) 21 mmol/L 23-31 L AGAP (test code = 6792241328) 13 2-16 BUN (test code = 8040892986) 26 mg/dL 7-23 H GLUCOSE (test code = 3800727575) 141 mg/dL 70-110 H CREATININE (test code = 5501145531) 7.48 mg/dL 0.60-1.25 H TOTAL BILI (test code = 8534053137) 0.8 mg/dL 0.1-1.1 CALCIUM (test code = 2505877575) 8.1 mg/dL 8.6-10.6 L T PROTEIN (test code = 0234323681) 8.7 g/dL 6.3-8.2 H ALBUMIN (test code = 8051077512) 4.2 g/dL 3.5-5.0 ALK PHOS (test code = 3033408278) 106 U/L 34-122 ALTv (test code = 1742-6) 19 U/L 5-50 AST(SGOT) (test code = 2672539378) 35 U/L 13-40 eGFR (test code = 9859490476) 8.0 mL/min/1.73m2 DAKSHA (test code = DAKSHA) Association of [...] or abnormalities in imaging tests). Lab Interpretation (test code = 07136-7) Abnormal [facility] WITH [id number] 02:32:50* Test Item Value Reference Range Interpretation Comme nts WBC (test code = 6690-2) 9.91 See_Comment [Automated messa ge] The system which generated this result transmitted reference range: 4.20 - 10.70 10*3/?L. The reference range was not used to interpret this result as normal/abnormal. RBC (test code = 789-8) 4.60 See_Comment [Automated [employer]] The system which generated this result transmitted reference range: 4.26 - 5.52 10*6/?L. The reference range was not used to interpret this result as normal/abnormal. HGB (test code = 718-7) 11.7 g/dL 12.2-16.4 L HCT (test code = 4544-3) 37.9 % 38.4-49.3 L MCV (test code = 787-2) 82.4 fL 81.7-95.6 MCH (test code = 785-6) 25.4 pg 26.1-32.7 L MCHC (test code = 786-4) 30.9 g/dL 31.2-35.0 L RDW-SD (test code = 13047-3) 46.4 fL 38.5-51.6 RDW-CV (test code = 788-0) 15.9 % 12.1-15.4 H PLT (test code = 777-3) 279 See_Comment [Automated [employer]] The system which generated this result transmitted reference range: 150 - 328 10*3/?L. The reference range was not used to interpret this result as normal/abnormal. MPV (test code = 03784-6) 10.3 fL 9.8-13.0 NRBC/100 WBC (test code = 2676344375) 0.5 See_Comment [Automated [employer] ssage] The system which generated this result transmitted reference range: 0.0 - 10.0 /100 WBCs. The reference range was not used to interpret this result as normal/abnormal. NRBC x10^3 (test code = 0005403284) 0.05 See_Comment [Automated [employer]] The system which generated this result transmitted reference range: 10*3/?L. The reference range was not used to interpret this result as normal/abnormal. GRAN MAT (NEUT) % (test code = 770-8) 85.1 % IMM GRAN % (test code = 7972097722) 0.50 % LYMPH % (test code = 736-9) 9.0 % MONO % (test code = 5905-5) 5.1 % EOS % (test code = 713-8) 0.0 % BASO % (test code = 706-2) 0.3 % GRAN MAT x10^3(ANC) (test code = 9215415374) 8.43 10*3/uL 1.99-6.95 H IMM GRAN x10^3 (test code = 8555729072) 0.05 10*3/uL 0.00-0.06 LYMPH x10^3 (test code = 731-0) 0.89 10*3/uL 1.09-3.23 L MONO x10^3 (test code = 742-7) 0.51 10*3/uL 0.36-1.02 EOS x10^3 (test code = 711-2) 0.06-0.53 L BASO x10^3 (test code = 704-7) 0.03 10*3/uL 0.01-0.09 Lab Interpretation (test code = 86665-3) Abnormal [facility] WITH [id number] 02:32:50* Test Item Value Reference Range Interpretation Comme nts WBC (test code = 6690-2) 9.91 See_Comment [Automated [employer]] The system which generated this result transmitted reference range: 4.20 - 10.70 10*3/?L. The reference range was not used to interpret this result as normal/abnormal. RBC (test code = 789-8) 4.60 See_Comment [Automated [employer]] The system which generated this result transmitted reference range: 4.26 - 5.52 10*6/?L. The reference range was not used to interpret this result as normal/abnormal. HGB (test code = 718-7) 11.7 g/dL 12.2-16.4 L HCT (test code = 4544-3) 37.9 % 38.4-49.3 L MCV (test code = 787-2) 82.4 fL 81.7-95.6 MCH (test code = 785-6) 25.4 pg 26.1-32.7 L MCHC (test code = 786-4) 30.9 g/dL 31.2-35.0 L RDW-SD (test code = 73517-4) 46.4 fL 38.5-51.6 RDW-CV (test code = 788-0) 15.9 % 12.1-15.4 H PLT (test code = 777-3) 279 See_Comment [Automated messa ge] The system which generated this result transmitted reference range: 150 - 328 10*3/?L. The reference range was not used to interpret this result as normal/abnormal. MPV (test code = 89723-0) 10.3 fL 9.8-13.0 NRBC/100 WBC (test code = 5545305430) 0.5 See_Comment [Automated [employer] ssage] The system which generated this result transmitted reference range: 0.0 - 10.0 /100 WBCs. The reference range was not used to interpret this result as normal/abnormal. NRBC x10^3 (test code = 2320232853) 0.05 See_Comment [Automated messa ge] The system which generated this result transmitted reference range: 10*3/?L. The reference range was not used to interpret this result as normal/abnormal. GRAN MAT (NEUT) % (test code = 770-8) 85.1 % IMM GRAN % (test code = 5326131514) 0.50 % LYMPH % (test code = 736-9) 9.0 % MONO % (test code = 5905-5) 5.1 % EOS % (test code = 713-8) 0.0 % BASO % (test code = 706-2) 0.3 % GRAN MAT x10^3(ANC) (test code = 1166220200) 8.43 10*3/uL 1.99-6.95 H IMM GRAN x10^3 (test code = 0827127947) 0.05 10*3/uL 0.00-0.06 LYMPH x10^3 (test code = 731-0) 0.89 10*3/uL 1.09-3.23 L MONO x10^3 (test code = 742-7) 0.51 10*3/uL 0.36-1.02 EOS x10^3 (test code = 711-2) 0.06-0.53 L BASO x10^3 (test code = 704-7) 0.03 10*3/uL 0.01-0.09 Lab Interpretation (test code = 22421-9) Abnormal [facility] GLUCOSE (AUTOMATED)2020-08-28 21:32:00* Test Item Value Reference Range Interpretation Comme nts POCT GLU (test code = 4259533907) 125 mg/dL 70-110 H Lab Interpretation (test cod e = 60620-3) Abnormal [facility] GLUCOSE (AUTOMATED)2020-08-28 18:01:00* Test Item Value Reference Range Interpretation Comme nts POCT GLU (test code = 7030508224) 216 mg/dL 70-110 H Lab Interpretation (test cod e = 97660-0) Abnormal [facility] GLUCOSE (AUTOMATED)2020-08-28 14:54:00* Test Item Value Reference Range Interpretation Comme nts POCT GLU (test code = 1026030640) 164 mg/dL 70-110 H Lab Interpretation (test cod e = 01318-7) Abnormal [facility] METABOLIC PANEL (NA, K, CL, CO2, GLUCOSE, BUN, CREATININE, CA)2020-08-28 11:56:00* Test Item Value Reference Range Interpretation Comme nts NA (test code = 4341384985) 140 mmol/L 135-145 K (test code = 2240589031) 5.1 mmol/L 3.5-5 H CL (test code = 3776026341) 114 mmol/L 98-108 H CO2 TOTAL (test code = 5279025457) 17 mmol/L 23-31 L AGAP (test code = 3493637799) 2-16 BUN (test code = 4058026412) 39 mg/dL 7-23 H GLUCOSE (test code = 7552351454) 173 mg/dL 70-110 H CREATININE (test code = 4128183158) 4.09 mg/dL 0.6-1.25 H CALCIUM (test code = 6209707832) 8.4 mg/dL 8.6-10.6 L eGFR Calculation (Non-) (test code = 4697957033) mL/min/1.73m2 eGFR Calculation () (test code = 3114218326) mL/min/1.73m2 DAKSHA (test code = DAKSHA) Association of [...] or abnormalities in imaging tests). Lab Interpretation (test code = 70763-5) Abnormal [facility] WITH [id number] 11:29:00* Test Item Value Reference Range Interpretation Comme nts WBC (test code = 6690-2) See_Comment H [Automated message] The system which generated this result transmitted reference range: 4.20 - 10.70 10*3/?L. The reference range was not used to interpret this result as normal/abnormal. RBC (test code = 789-8) See_Comment L [Automated message] The system which generated this result transmitted reference range: 4.26 - 5.52 10*6/?L. The reference range was not used to interpret this result as normal/abnormal. HGB (test code = 718-7) 8.5 g/dL 12.2-16.4 L HCT (test code = 4544-3) 27.8 % 38.4-49.3 L MCV (test code = 787-2) 79.7 fL 81.7-95.6 L MCH (test code = 785-6) 24.4 pg 26.1-32.7 L MCHC (test code = 786-4) 30.6 g/dL 31.2-35 L RDW-SD (test code = 47007-0) 45.0 fL 38.5-51.6 RDW-CV (test code = 788-0) 15.7 % 12.1-15.4 H PLT (test code = 777-3) See_Comment H [Automated message] The system which generated this result transmitted reference range: 150 - 328 10*3/?L. The reference range was not used to interpret this result as normal/abnormal. MPV (test code = 70485-9) 8.6 fL 9.8-13 L NRBC/100 WBC (test code = 1321808490) See_Comment [Automated message] The system which generated this result transmitted reference range: 0.0 - 10.0 /100 WBCs. The reference range was not used to interpret this result as normal/abnormal. NRBC x10^3 (test code = 2300241221) See_Comment [Automated message] The system which generated this result transmitted reference range: 10*3/?L. The reference range was not used to interpret this result as normal/abnormal. GRAN MAT (NEUT) % (test code = 770-8) 70.9 % IMM GRAN % (test code = 1618875712) 1.20 % LYMPH % (test code = 736-9) 16.7 % MONO % (test code = 5905-5) 5.7 % EOS % (test code = 713-8) 4.9 % BASO % (test code = 706-2) 0.6 % GRAN MAT x10^3(ANC) (test code = 4495857954) 11.04 10*3/uL 1.99-6.95 H IMM GRAN x10^3 (test code = 2054508878) 0.19 10*3/uL 0-0.06 H LYMPH x10^3 (test code = 731-0) 2.60 10*3/uL 1.09-3.23 MONO x10^3 (test code = 742-7) 0.88 10*3/uL 0.36-1.02 EOS x10^3 (test code = 711-2) 0.76 10*3/uL 0.06-0.53 H BASO x10^3 (test code = 704-7) 0.10 10*3/uL 0.01-0.09 H Lab Interpretation (test code = 75298-1) Abnormal [facility] GLUCOSE (AUTOMATED)2020-08-28 10:16:00* Test Item Value Reference Range Interpretation Comme nts POCT GLU (test code = 1524987648) 176 mg/dL 70-110 H Lab Interpretation (test cod e = 52779-5) Abnormal [facility] GLUCOSE (AUTOMATED)2020-08-28 05:47:00* Test Item Value Reference Range Interpretation Comme nts POCT GLU (test code = 5680054128) 186 mg/dL 70-110 H Lab Interpretation (test cod e = 53968-4) [facility] [id number] 04:57:00COVID DMT InterpretationInterpretation/Recommendations: Molecular NAAT Tests for Active Infection with the SARS-CoV-2 Virus: The patient has currently tested negative for the SARS-CoV-2 virus that causes COVID-19 illness. This most likely indicates that the patient does not have an active infectionwith the SARS-CoV-2 virus. However, infection is not completely ruled out as the false negative rate for molecular NAAT testing using a nasopharyngeal sample can be up to 30%, mostly dependent on thetiming of sample collection in relation to illness [...] COVID-19 testing the patient has had at [facility], including molecular NAAT testing (more commonly known as PCR testing and Rapid ID Now testing) and antibody testing. It does not take into account any testing that a patient has had outside of the [facility] medical record. [facility] LABORATORY SERVICESCOVID HnlcgrdEIOF-DnG-4 Rapid ID NOW (no units) ? ? Date ? Value ? 08/23/2020 ? Not Detected ? [facility]2020-08-28 02:04:00* Test Item Value Reference Range Interpretation Comme [facility] POCT GLU (test code = 9483363539) 215 mg/dL 70-110 H Lab Interpretation (test cod e = 32005-3) Abnormal [facility] GLUCOSE (AUTOMATED)2020-08-27 17:47:00* Test Item Value Reference Range Interpretation Comme [facility] POCT GLU (test code = 5547623720) 169 mg/dL 70-110 H Lab Interpretation (test cod e = 51337-3) Abnormal [facility] GLUCOSE (AUTOMATED)2020-08-27 14:49:00* Test Item Value Reference Range Interpretation Comme [facility] POCT GLU (test code = 4020080738) 134 mg/dL 70-110 H Lab Interpretation (test cod e = 69559-9) Abnormal [facility] METABOLIC PANEL (NA, K, CL, CO2, GLUCOSE, BUN, CREATININE, CA)2020-08-27 11:53:00* Test Item Value Reference Range Interpretation Comme nts NA (test code = 3721786872) 140 mmol/L 135-145 K (test code = 7611469579) 4.9 mmol/L 3.5-5 CL (test code = 9422982351) 116 mmol/L 98-108 H CO2 TOTAL (test code = 9614798827) 16 mmol/L 23-31 L AGAP (test code = 4261553829) 2-16 BUN (test code = 7217283949) 41 mg/dL 7-23 H GLUCOSE (test code = 2972746244) 157 mg/dL 70-110 H CREATININE (test code = 8036956415) 4.64 mg/dL 0.6-1.25 H CALCIUM (test code = 9511205481) 8.2 mg/dL 8.6-10.6 L eGFR Calculation (Non-) (test code = 3778869328) mL/min/1.73m2 eGFR Calculation () (test code = 9963066438) mL/min/1.73m2 DAKSHA (test code = DAKSHA) Association of [...] or abnormalities in imaging tests). Lab Interpretation (test code = 36399-3) Abnormal [facility] WITH [id number] 11:22:00* Test Item Value Reference Range Interpretation Comme nts WBC (test code = 6690-2) See_Comment H [Automated [employer]] The system which generated this result transmitted reference range: 4.20 - 10.70 10*3/?L. The reference range was not used to interpret this result as normal/abnormal. RBC (test code = 789-8) See_Comment L [Automated [employer]] The system which generated this result transmitted reference range: 4.26 - 5.52 10*6/?L. The reference range was not used to interpret this result as normal/abnormal. HGB (test code = 718-7) 8.1 g/dL 12.2-16.4 L HCT (test code = 4544-3) 26.8 % 38.4-49.3 L MCV (test code = 787-2) 80.2 fL 81.7-95.6 L MCH (test code = 785-6) 24.3 pg 26.1-32.7 L MCHC (test code = 786-4) 30.2 g/dL 31.2-35 L RDW-SD (test code = 27949-5) 46.0 fL 38.5-51.6 RDW-CV (test code = 788-0) 15.7 % 12.1-15.4 H PLT (test code = 777-3) See_Comment H [Automated messa ge] The system which generated this result transmitted reference range: 150 - 328 10*3/?L. The reference range was not used to interpret this result as normal/abnormal. MPV (test code = 99265-5) 8.9 fL 9.8-13 L NRBC/100 WBC (test code = 3588831295) See_Comment [Automated [employer] ssage] The system which generated this result transmitted reference range: 0.0 - 10.0 /100 WBCs. The reference range was not used to interpret this result as normal/abnormal. NRBC x10^3 (test code = 1102117130) <0.01 See_Comment [Automated messa ge] The system which generated this result transmitted reference range: 10*3/?L. The reference range was not used to interpret this result as normal/abnormal. GRAN MAT (NEUT) % (test code = 770-8) 69.1 % IMM GRAN % (test code = 7507147172) 1.10 % LYMPH % (test code = 736-9) 17.5 % MONO % (test code = 5905-5) 5.9 % EOS % (test code = 713-8) 5.8 % BASO % (test code = 706-2) 0.6 % GRAN MAT x10^3(ANC) (test code = 6920305529) 9.87 10*3/uL 1.99-6.95 H IMM GRAN x10^3 (test code = 8740860559) 0.16 10*3/uL 0-0.06 H LYMPH x10^3 (test code = 731-0) 2.51 10*3/uL 1.09-3.23 MONO x10^3 (test code = 742-7) 0.85 10*3/uL 0.36-1.02 EOS x10^3 (test code = 711-2) 0.83 10*3/uL 0.06-0.53 H BASO x10^3 (test code = 704-7) 0.09 10*3/uL 0.01-0.09 Lab Interpretation (test code = 95564-0) Abnormal [facility] GLUCOSE (AUTOMATED)2020-08-27 09:57:00* Test Item Value Reference Range Interpretation Comme nts POCT GLU (test code = 7994659102) 170 mg/dL 70-110 H Lab Interpretation (test cod e = 95404-2) Abnormal [facility] GLUCOSE (AUTOMATED)2020-08-27 05:37:00* Test Item Value Reference Range Interpretation Comme nts POCT GLU (test code = 8139751711) 171 mg/dL 70-110 H Lab Interpretation (test cod e = 99337-5) Abnormal [facility] GLUCOSE (AUTOMATED)2020-08-27 02:05:00* Test Item Value Reference Range Interpretation Comme nts POCT GLU (test code = 5147174733) 184 mg/dL 70-110 H Lab Interpretation (test cod e = 22955-9) Abnormal [facility] GLUCOSE (AUTOMATED)2020-08-26 23:29:00* Test Item Value Reference Range Interpretation Comme nts POCT GLU (test code = 4793073536) 158 mg/dL 70-110 H Lab Interpretation (test cod e = 31009-6) Abnormal [facility] GLUCOSE (AUTOMATED)2020-08-26 18:28:00* Test Item Value Reference Range Interpretation Comme nts POCT GLU (test code = 4388265907) 210 mg/dL 70-110 H Lab Interpretation (test cod e = 19485-1) Abnormal [facility] GLUCOSE (AUTOMATED)2020-08-26 14:36:00* Test Item Value Reference Range Interpretation Comme nts POCT GLU (test code = 2035768256) 201 mg/dL 70-110 H Lab Interpretation (test cod e = 17619-2) Abnormal [facility] METABOLIC PANEL (NA, K, CL, CO2, GLUCOSE, BUN, CREATININE, CA)2020-08-26 11:58:00* Test Item Value Reference Range Interpretation Comme nts NA (test code = 5801112234) 139 mmol/L 135-145 K (test code = 9477489123) 4.7 mmol/L 3.5-5 CL (test code = 2895613722) 117 mmol/L 98-108 H CO2 TOTAL (test code = 2777351361) 16 mmol/L 23-31 L AGAP (test code = 0258757921) 2-16 BUN (test code = 3556678217) 41 mg/dL 7-23 H GLUCOSE (test code = 6285366498) 170 mg/dL 70-110 H CREATININE (test code = 5407019417) 5.23 mg/dL 0.6-1.25 H CALCIUM (test code = 1966255868) 7.7 mg/dL 8.6-10.6 L eGFR Calculation (Non-) (test code = 8693186690) mL/min/1.73m2 eGFR Calculation () (test code = 4385215331) mL/min/1.73m2 DAKSHA (test code = DAKSHA) Association of [...] or abnormalities in imaging tests). Lab Interpretation (test code = 29553-8) Abnormal [facility] WITH [id number] 11:27:00* Test Item Value Reference Range Interpretation Comme nts WBC (test code = 6690-2) See_Comment H [Automated message] The system which generated this result transmitted reference range: 4.20 - 10.70 10*3/?L. The reference range was not used to interpret this result as normal/abnormal. RBC (test code = 789-8) See_Comment L [Automated message] The system which generated this result transmitted reference range: 4.26 - 5.52 10*6/?L. The reference range was not used to interpret this result as normal/abnormal. HGB (test code = 718-7) 7.8 g/dL 12.2-16.4 L HCT (test code = 4544-3) 25.1 % 38.4-49.3 L MCV (test code = 787-2) 79.9 fL 81.7-95.6 L MCH (test code = 785-6) 24.8 pg 26.1-32.7 L MCHC (test code = 786-4) 31.1 g/dL 31.2-35 L RDW-SD (test code = 05138-6) 46.1 fL 38.5-51.6 RDW-CV (test code = 788-0) 15.9 % 12.1-15.4 H PLT (test code = 777-3) See_Comment H [Automated message] The system which generated this result transmitted reference range: 150 - 328 10*3/?L. The reference range was not used to interpret this result as normal/abnormal. MPV (test code = 61020-2) 9.1 fL 9.8-13 L NRBC/100 WBC (test code = 7478411659) See_Comment [Automated message] The system which generated this result transmitted reference range: 0.0 - 10.0 /100 WBCs. The reference range was not used to interpret this result as normal/abnormal. NRBC x10^3 (test code = 3217990468) <0.01 See_Comment [Automated message] The system which generated this result transmitted reference range: 10*3/?L. The reference range was not used to interpret this result as normal/abnormal. GRAN MAT (NEUT) % (test code = 770-8) 71.1 % IMM GRAN % (test code = 1801486772) 0.80 % LYMPH % (test code = 736-9) 15.7 % MONO % (test code = 5905-5) 6.1 % EOS % (test code = 713-8) 5.9 % BASO % (test code = 706-2) 0.4 % GRAN MAT x10^3(ANC) (test code = 7952261706) 10.21 10*3/uL 1.99-6.95 H IMM GRAN x10^3 (test code = 8571971447) 0.11 10*3/uL 0-0.06 H LYMPH x10^3 (test code = 731-0) 2.26 10*3/uL 1.09-3.23 MONO x10^3 (test code = 742-7) 0.87 10*3/uL 0.36-1.02 EOS x10^3 (test code = 711-2) 0.84 10*3/uL 0.06-0.53 H BASO x10^3 (test code = 704-7) 0.06 10*3/uL 0.01-0.09 Lab Interpretation (test code = 70513-3) Abnormal [facility] GLUCOSE (AUTOMATED)2020-08-26 10:04:00* Test Item Value Reference Range Interpretation Comme nts POCT GLU (test code = 4874329772) 181 mg/dL 70-110 H Lab Interpretation (test cod e = 30037-4) Abnormal [facility] GLUCOSE (AUTOMATED)2020-08-26 05:44:00* Test Item Value Reference Range Interpretation Comme nts POCT GLU (test code = 1130315613) 189 mg/dL 70-110 H Lab Interpretation (test cod e = 08486-2) Abnormal [facility] GLUCOSE (AUTOMATED)2020-08-26 01:57:00* Test Item Value Reference Range Interpretation Comme nts POCT GLU (test code = 8654814708) 204 mg/dL 70-110 H Lab Interpretation (test cod e = 66399-2) Abnormal [facility] GLUCOSE (AUTOMATED)2020-08-25 23:10:00* Test Item Value Reference Range Interpretation Comme nts POCT GLU (test code = 1011956423) 176 mg/dL 70-110 H Lab Interpretation (test cod e = 47099-2) Abnormal [facility] GLUCOSE (AUTOMATED)2020-08-25 19:26:00* Test Item Value Reference Range Interpretation Comme nts POCT GLU (test code = 1648581264) 177 mg/dL 70-110 H Lab Interpretation (test cod e = 31441-2) [facility] [id number] 18:27:00* Test Item Value Reference Range Interpretation Comments CREAT U (test code = 0899767460) 92.3 mg/dL MICROALB U (test code = 13558-2) 1350 ug/mL 0-45 H MICROAL/CR (test code = 9318-7) See_Comment H [Automated message] The system which generated this result transmitted reference range: 0 - 30 mg/g of creatinine. The reference range was not used to interpret this result as normal/abnormal . DAKSHA (test code = DAKSHA) Normal: <30 mg/g creatinineMicroalbuminu lanette: 30 - 299 mg/g creatinineClinical albuminuria: > 300 mg/g creatinine Lab Interpretation (test code = 40847-1) [facility]2020-08-25 14:39:00* Test Item Value Reference Range Interpretation Comme [facility] POCT GLU (test code = 0239771754) 135 mg/dL 70-110 H Lab Interpretation (test cod e = 27632-0) [facility]normal [facility] 14:20:00* Test Item Value Reference Range Interpretation Comme [facility] MAGNESIUM (test code = 1121614254) 1.9 mg/dL 1.7-2.4 Lab Interpretation (test cod e = 41356-9) Normal [facility] METABOLIC PANEL (NA, K, CL, CO2, GLUCOSE, BUN, CREATININE, CA)2020-08-25 12:54:00* Test Item Value Reference Range Interpretation Comme nts NA (test code = 5074520460) 139 mmol/L 135-145 K (test code = 4432365388) 5.0 mmol/L 3.5-5 CL (test code = 6255822334) 114 mmol/L 98-108 H CO2 TOTAL (test code = 0794173429) 17 mmol/L 23-31 L AGAP (test code = 8044333775) 2-16 BUN (test code = 3976858140) 43 mg/dL 7-23 H GLUCOSE (test code = 3006586210) 132 mg/dL 70-110 H CREATININE (test code = 8073704164) 6.25 mg/dL 0.6-1.25 H CALCIUM (test code = 2858877509) 7.7 mg/dL 8.6-10.6 L eGFR Calculation (Non-) (test code = 9155718085) mL/min/1.73m2 eGFR Calculation () (test code = 7181502031) mL/min/1.73m2 DAKSHA (test code = DAKSHA) Association of [...] or abnormalities in imaging tests). Lab Interpretation (test code = 95124-7) Abnormal [facility] WITH [id number] 12:22:00* Test Item Value Reference Range Interpretation Comme nts WBC (test code = 6690-2) See_Comment H [Automated message] The system which generated this result transmitted reference range: 4.20 - 10.70 10*3/?L. The reference range was not used to interpret this result as normal/abnormal. RBC (test code = 789-8) See_Comment L [Automated message] The system which generated this result transmitted reference range: 4.26 - 5.52 10*6/?L. The reference range was not used to interpret this result as normal/abnormal. HGB (test code = 718-7) 7.6 g/dL 12.2-16.4 L HCT (test code = 4544-3) 24.9 % 38.4-49.3 L MCV (test code = 787-2) 79.6 fL 81.7-95.6 L MCH (test code = 785-6) 24.3 pg 26.1-32.7 L MCHC (test code = 786-4) 30.5 g/dL 31.2-35 L RDW-SD (test code = 23497-8) 47.4 fL 38.5-51.6 RDW-CV (test code = 788-0) 16.2 % 12.1-15.4 H PLT (test code = 777-3) See_Comment H [Automated message] The system which generated this result transmitted reference range: 150 - 328 10*3/?L. The reference range was not used to interpret this result as normal/abnormal. MPV (test code = 87865-1) 8.8 fL 9.8-13 L NRBC/100 WBC (test code = 1756165794) See_Comment [Automated message] The system which generated this result transmitted reference range: 0.0 - 10.0 /100 WBCs. The reference range was not used to interpret this result as normal/abnormal. NRBC x10^3 (test code = 7107803788) <0.01 See_Comment [Automated message] The system which generated this result transmitted reference range: 10*3/?L. The reference range was not used to interpret this result as normal/abnormal. GRAN MAT (NEUT) % (test code = 770-8) 73.3 % IMM GRAN % (test code = 7471428740) 0.40 % LYMPH % (test code = 736-9) 16.1 % MONO % (test code = 5905-5) 5.3 % EOS % (test code = 713-8) 4.3 % BASO % (test code = 706-2) 0.6 % GRAN MAT x10^3(ANC) (test code = 3979415728) 11.11 10*3/uL 1.99-6.95 H IMM GRAN x10^3 (test code = 6868472087) 0.06 10*3/uL 0-0.06 LYMPH x10^3 (test code = 731-0) 2.44 10*3/uL 1.09-3.23 MONO x10^3 (test code = 742-7) 0.81 10*3/uL 0.36-1.02 EOS x10^3 (test code = 711-2) 0.65 10*3/uL 0.06-0.53 H BASO x10^3 (test code = 704-7) 0.09 10*3/uL 0.01-0.09 Lab Interpretation (test code = 18195-6) Abnormal [facility] GLUCOSE (AUTOMATED)2020-08-25 09:40:00* Test Item Value Reference Range Interpretation Comme [facility] POCT GLU (test code = 3519061954) 131 mg/dL 70-110 H Lab Interpretation (test cod e = 97118-0) Abnormal [facility] GLUCOSE (AUTOMATED)2020-08-25 05:51:00* Test Item Value Reference Range Interpretation Comme [facility] POCT GLU (test code = 8388422149) 134 mg/dL 70-110 H Lab Interpretation (test cod e = 85717-3) Abnormal [facility] GLUCOSE (AUTOMATED)2020-08-25 03:27:00* Test Item Value Reference Range Interpretation Comme [facility] POCT GLU (test code = 2967166734) 140 mg/dL 70-110 H Lab Interpretation (test cod e = 46865-1) [facility]normal [facility] CALCIUM [id number] 00:55:00* Test Item Value Reference Range Interpretation Comme [facility] PTH-INTACT (test code = 0627935132) 489.4 pg/mL 12-88 H PTH-CA Interpretation (test code = 5223872927) Further clinical data needed for interpretation. CALCIUM (test code = 7257341427) 7.5 mg/dL 8.6-10.6 L Lab Interpretation (test code = 12143-1) Abnormal [facility]ound[facility]ITAMIN D, [id number] 23:44:00* Test Item Value Reference Range Interpretation Comme [facility] VIT D 25OH (test code = 41911-8) <13 25-80 L DAKSHA (test code = DAKSHA) Deficiency: <20 ng/mLInsufficiency: 20-24 ng/mLOptimal: 25-80 ng/mL Lab Interpretation (test code = 32896-0) Abnormal [facility]oundDAT [id number] 22:45:39* Test Item Value Reference Range Interpretation Comme nts TIARRA POLY (test code = 1610) Negative Performed at [facility] B Laboratory Services - [facility] Blood [address] [address]Wsjs Free: [phone] No. [id number] [facility] GLUCOSE (AUTOMATED)2020-08-24 22:13:00* Test Item Value Reference Range Interpretation Comme nts POCT GLU (test code = 5458860594) 130 mg/dL 70-110 H Lab Interpretation (test cod e = 79137-8) Abnormal [facility]oundLACTATE [id number] 21:39:00* Test Item Value Reference Range Interpretation Comme nts LDH (test code = 0943542342) 540 U/L 300-600 Lab Interpretation (test cod e = 47924-9) Normal [facility]oundUREA NITROGEN, URINE [id number] 20:56:00 * Test Item Value Reference Range Interpretation Comme nts UREA N UR (test code = 0729249923) 336 mg/dL [facility] MoundHAPTOGLOBIN, [id number] 19:32:00* Test Item Value Reference Range Interpretation Comme nts HAPTOGLOB (test code = 0971158089) 450 mg/dL 16-200 H Lab Interpretation (test cod e = 30632-1) Abnormal [facility]oundRETICULOCYTES [id number] 19:00:00* Test Item Value Reference Range Interpretation Comme nts RETIC Count Automated (test code = 4549996639) 0.80 % 0.59-2.24 RETIC Absolute Count (test code = 0828277471) See_Comment L [Automa charisse message] The system which generated this result transmitted reference range: 0.0260 - 0.1170 10*6/?L. The reference range was not used to interpret this result as normal/abnormal. IRF % (test code = 4507441345) 13.30 % 2-19.1 RETIC-HE (test code = 3561238724) 23.2 pg 27.3-36.4 L Lab Interpretation (test code = 73401-6) Abnormal [facility] GLUCOSE (AUTOMATED)2020-08-24 18:35:00* Test Item Value Reference Range Interpretation Comme nts POCT GLU (test code = 8370234796) 110 mg/dL 70-110 Lab Interpretation (test cod e = 22429-6) Normal [facility]oundDIFF CONSULT [id number] 17:49:00 LEUKOCYTOSIS WITH ABSOLUTE TOXIC NEUTROPHILIA INCLUDING [...] BLOOD LOSS/HEMOLYSIS. SUGGEST HEMOLYSIS LABS INCLUDING HAPTOGLOBIN, LDH, RETICULOCYTE COUNT, TIARRA AND BILIRUBIN LEVELS WELL SEARCHING FOR POSSIBLE ANATOMICALSOURCES OF BLOOD LOSS. THROMBOCYTOSIS, FAVOR REACTIVE. [facility] GLUCOSE (AUTOMATED)2020-08-24 16:32:00* Test Item Value Reference Range Interpretation Comme [facility] POCT GLU (test code = 0334609528) 80 mg/dL 70-110 Lab Interpretation (test cod e = 38580-7) Normal [facility]oundPROTEIN CREAT RATIO URINE [id number] 15:52:00* Test Item Value Reference Range Interpretation Comme [facility] T. PROT U (test code = 2888-6) 475 mg/dL CREAT U (test code = 7479210813) 134.7 mg/dL Protein/Creatinine Ratio Uri ne (test code = 1092621518) 0.0-2.0 H Lab Interpretation (test cod e = 22675-7) Abnormal [facility] GLUCOSE (AUTOMATED)2020-08-24 15:00:00* Test Item Value Reference Range Interpretation Comme [facility] POCT GLU (test code = 0676701499) 58 mg/dL 70-110 L Lab Interpretation (test cod e = 78493-4) Abnormal [facility]oundGLYCOSYLATED HEMOGLOBIN (A1C)2020-08-24 14:01:00* Test Item Value Reference Range Interpretation Comme [facility] HGB A1C (test code = 4548-4) 7.1 % 4-6 H Lab Interpretation (test cod e = 61943-8) Abnormal [facility] GLUCOSE (AUTOMATED)2020-08-24 12:04:00* Test Item Value Reference Range Interpretation Comme nts POCT GLU (test code = 9869079045) 99 mg/dL 70-110 Lab Interpretation (test cod e = 08862-2) Normal [facility] with [id number] 11:48:00* Test Item Value Reference Range Interpretation Comme nts WBC (test code = 6690-2) See_Comment H [Automated message] The system which generated this result transmitted reference range: 4.20 - 10.70 10*3/?L. The reference range was not used to interpret this result as normal/abnormal. RBC (test code = 789-8) See_Comment L [Automated message] The system which generated this result transmitted reference range: 4.26 - 5.52 10*6/?L. The reference range was not used to interpret this result as normal/abnormal. HGB (test code = 718-7) 7.6 g/dL 12.2-16.4 L HCT (test code = 4544-3) 24.9 % 38.4-49.3 L MCV (test code = 787-2) 79.8 fL 81.7-95.6 L MCH (test code = 785-6) 24.4 pg 26.1-32.7 L MCHC (test code = 786-4) 30.5 g/dL 31.2-35 L RDW-SD (test code = 64949-8) 46.3 fL 38.5-51.6 RDW-CV (test code = 788-0) 15.9 % 12.1-15.4 H PLT (test code = 777-3) See_Comment H [Automated message] The system which generated this result transmitted reference range: 150 - 328 10*3/?L. The reference range was not used to interpret this result as normal/abnormal. MPV (test code = 53667-2) 9.3 fL 9.8-13 L NRBC/100 WBC (test code = 9057713627) See_Comment [Automated message] The system which generated this result transmitted reference range: 0.0 - 10.0 /100 WBCs. The reference range was not used to interpret this result as normal/abnormal. NRBC x10^3 (test code = 1556974892) <0.01 See_Comment [Automated message] The system which generated this result transmitted reference range: 10*3/?L. The reference range was not used to interpret this result as normal/abnormal. GRAN MAT (NEUT) % (test code = 770-8) 82.4 % IMM GRAN % (test code = 5639663335) 0.40 % LYMPH % (test code = 736-9) 9.6 % MONO % (test code = 5905-5) 5.7 % EOS % (test code = 713-8) 1.5 % BASO % (test code = 706-2) 0.4 % GRAN MAT x10^3(ANC) (test code = 7124154116) 16.11 10*3/uL 1.99-6.95 H IMM GRAN x10^3 (test code = 6348560396) 0.07 10*3/uL 0-0.06 H LYMPH x10^3 (test code = 731-0) 1.87 10*3/uL 1.09-3.23 MONO x10^3 (test code = 742-7) 1.12 10*3/uL 0.36-1.02 H EOS x10^3 (test code = 711-2) 0.29 10*3/uL 0.06-0.53 BASO x10^3 (test code = 704-7) 0.07 10*3/uL 0.01-0.09 Lab Interpretation (test code = 18648-0) Abnormal [facility] Metabolic Panel (NA, K, CL, CO2, GLUCOSE, BUN, CREATININE, CA)2020-08-24 11:28:00* Test Item Value Reference Range Interpretation Comme nts NA (test code = 5310945215) 140 mmol/L 135-145 K (test code = 7595914149) 4.6 mmol/L 3.5-5 CL (test code = 8725591145) 116 mmol/L 98-108 H CO2 TOTAL (test code = 4696584616) 14 mmol/L 23-31 L AGAP (test code = 0036123393) 2-16 BUN (test code = 2195446127) 46 mg/dL 7-23 H GLUCOSE (test code = 7960282394) 38 mg/dL 70-110 LL CREATININE (test code = 1847282896) 6.44 mg/dL 0.6-1.25 H CALCIUM (test code = 1410154672) 7.5 mg/dL 8.6-10.6 L eGFR Calculation (Non-) (test code = 0543806455) mL/min/1.73m2 eGFR Calculation () (test code = 0028820852) mL/min/1.73m2 DAKSHA (test code = DAKSHA) Association of [...] or abnormalities in imaging tests). Lab Interpretation (test code = 35055-7) [facility]normal [facility]oundMagnesium [id number] 11:24:00* Test Item Value Reference Range Interpretation Comme nts MAGNESIUM (test code = 2832294641) 1.5 mg/dL 1.7-2.4 L Lab Interpretation (test cod e = 11056-9) [facility]normal [facility]RESPIRATORY PANEL BY [id number] 07:10:00* Test Item Value Reference Range Interpretation Comme nts Adenovirus (test code = 85132-9) Negative Negative Coronavirus HKU1 (test code = 78561-1) Negative Negative Coronavirus NL63 (test code = 88384-2) Negative Negative Coronavirus 229E (test code = 19542-5) Negative Negative Coronavirus OC43 (test code = 40079-3) Negative Negative Human Metapneumovirus (test code = 88529-7) Negative Negative Human Rhinovirus/Enterovirus (test code = 03424-2) Negative Negative Influenza A (test code = 48381-1) Negative Negative Influenza B (test code = 61063-6) Negative Negative Parainfluenza Virus 1 (test code = 97831-0) Negative Negative Parainfluenza Virus 2 (test code = 65505-0) Negative Negative Parainfluenza Virus 3 (test code = 66730-1) Negative Negative Parainfluenza Virus 4 (test code = 83742-8) Negative Negative Respiratory Syncytial Virus (test code = 84662-1) Negative Negative Bordetella parapertussis (test code = 98365-0) Negative Negative Bordetella pertussis (test code = 93099-0) Negative Negative Chlamydia pneumoniae (test code = 35725-0) Negative Negative Mycoplasma pneumoniae (test code = 52179-8) Negative Negative DAKSHA (test code = DAKSHA) Negative:A negativ e result does not rule-out infection. ?This assay does not test for all potential infectious agents. ? Positive:A positive test result does not necessarily indicate the presence of viable organism. ? Lab Interpretation (test code = 51274-5) Normal [facility]oundPROCALCITONIN2021-02-18 04:14:00* Test Item Value Reference Range Interpretation Comme nts Procalcitonin (test code = 5788911740) 1.11 ng/mL <0.07 H DAKSHA (test code = DAKSHA) INTERPRETATION OF [...] lung abscess/empyema. For further information please refer to:[email or web address] Lab Interpretation (test code = 20681-6) Abnormal [facility] GLUCOSE (AUTOMATED)2020-08-24 02:55:00* Test Item Value Reference Range Interpretation Comme [facility] POCT GLU (test code = 3141215727) 234 mg/dL 70-110 H Lab Interpretation (test cod e = 66563-9) Abnormal [facility] GLUCOSE (AUTOMATED)2020-08-24 02:24:00* Test Item Value Reference Range Interpretation Comme [facility] POCT GLU (test code = 6292460554) 48 mg/dL 70-110 LL Lab Interpretation (test cod e = 07133-2) Abnormal [facility] RETROPERITONEAL [id number] 01:31:05 Echogenic kidneys that can be seen [...] measures 10.9 x 5.8 x 5.8 cm. ?Nohydronephrosis or renal stone. LEFT KIDNEY: Normal size and contour with increased echogenicity. The leftkidney measures 12.7 x 7.2 x 8.0 cm. No hydronephrosis, focal lesion orrenal stone. [facility], Radiant Results Inft User - 08/23/2020 7:32 PM CSTUS RETROPERITONEAL LIMITEDTECHNIQUE: Real-time grayscale and Doppler ultrasound imaging of thekidneys was performed.HISTORY: PASCALE . COMPARISON: None.FINDINGS: RIGHT KIDNEY: A thin-walled anechoic exophytic simple cystmeasuresmeasures 2.1 x 1.8 x 2.0 cm. Otherwise, normal size and contour withincreased echogenicity.The right kidney measures 10.9 x 5.8 x 5.8 cm. Nohydronephrosis or renal stone.LEFT KIDNEY: Normal size and contour with increased echogenicity. The leftkidney measures 12.7 x 7.2 x 8.0 cm. No hydrone phrosis, focal lesion orrenal stone.IMPRESSIONEchogenic kidneys that can be seen with chronic medical renal disease.Simple right renal cyst.No hydronephrosis.Preliminary Report Dictated by Resident: Terrie Gilbert, Nile Rebollar MD., have reviewed this study and agree withthe above report.[facility] MoundFERRITIN [id number] 00:10:00* Test Item Value Reference Range Interpretation Comme nts FERRITIN (test code = 3849441266) 168.0 ng/mL 18-464 DAKSHA (test code = DAKSHA) Biotin has been reported to cause a negative bias, interpret results relative to patient's use of biotin. Lab Interpretation (test code = 52415-1) [facility] [id number] 23:49:00* Test Item Value Reference Range Interpretation Comme nts IRON (test code = 2812618036) <10 50-160 L TIBC (test code = 5648944408) 229 ug/dL 250-410 L % FE SAT (test code = 4056513125) Unable to calcul ate because, either iron serum, total iron binding capacity, or both are less than the sensitivity of the analyzer. Lab Interpretation (test code = 32533-7) Abnormal [facility]-TERMINAL [id number] 23:44:00* Test Item Value Reference Range Interpretation Comme nts NT-proBNP (test code = 7295531443) 1100 pg/mL See_Comment H [Automated message] The system which generated this result transmitted reference range: <=125. The reference range was not used to interpret this result as normal/abnormal. DAKSHA (test code = DAKSHA) Biotin has been reported to cause a negative bias, interpret results relative to patient's use of biotin. Lab Interpretation (test code = 08459-0) Abnormal [facility]oundHEPATIC FUNCTION PANEL (17042) (ALB,T.PRO,BILI T,BU/BC,ALT,AST,ALK PHOS)2020-08-23 23:35:00* Test Item Value Reference Range Interpretation Comme nts TOTAL BILI (test code = 3434160788) 0.5 mg/dL 0.1-1.1 BILI UNCON (test code = 2603528695) 0.2 mg/dL 0.1-1.1 BILI CONJ (test code = 7236464958) 0.0 mg/dL 0-0.3 T PROTEIN (test code = 8871370588) 5.9 g/dL 6.3-8.2 L ALBUMIN (test code = 4450826207) 2.8 g/dL 3.5-5 L ALK PHOS (test code = 4608023152) 83 U/L 34-122 ALTv (test code = 1742-6) 13 U/L 5-50 AST(SGOT) (test code = 1531196362) 23 U/L 13-40 Lab Interpretation (test cod e = 67206-2) [facility]normal [facility]oundPhosphorus [id number] 23:35:00* Test Item Value Reference Range Interpretation Comme nts PHOSPHORUS (test code = 3853074108) 4.1 mg/dL 2.5-5 Lab Interpretation (test cod e = 67224-9) Normal [facility]URINALYSIS2021-02-17 23:35:00* Test Item Value Reference Range Interpretation Comme nts APPEARANCE (test code = 7115925343) Cloudy Clear A COLOR (test code = 4841024660) Yellow Yellow PH (test code = 7526743590) 4.8-8.0 SP GRAVITY (test code = 3234395361) 1.003-1.030 GLU U QUAL (test code = 2199147607) Normal Normal BLOOD (test code = 6292985315) 1+ Negative A KETONES (test code = 7937463753) Negative Negative PROTEIN (test code = 2887-8) 500 mg/dL Negative A UROBILIN (test code = 0976619696) Normal Normal BILIRUBIN (test code = 3103805270) Negative Negative NITRITE (test code = 3028319785) Negative Negative LEUK MARINA (test code = 6703500885) Negative Negative RBC/HPF (test code = 4923106274) <1 See_Comment [Automated messa ge] The system which generated this result transmitted reference range: 0 - 3 HPF. The reference range was not used to interpret this result as normal/abnormal. WBC/HPF (test code = 7719859306) See_Comment [Automated [employer] ge] The system which generated this result transmitted reference range: 0 - 5 HPF. The reference range was not used to interpret this result as normal/abnormal. BACTERIA (test code = 1491142874) Negative Negative MUCOUS (test code = 8319508492) Slight Negative LPF A AMORPHOUS (test code = 6692880023) Rare HPF Lab Interpretation (test code = 35183-7) [facility]normal [facility]OSPHORUS2021-02-17 23:33:00* Test Item Value Reference Range Interpretation Comme nts PHOSPHORUS (test code = 6981912914) 4.2 mg/dL 2.5-5 Lab Interpretation (test cod e = 44009-2) Normal [facility]oundSODIUM, URINE [id number] 23:31:00* Test Item Value Reference Range Interpretation Comme nts NA URINE (test code = 6275672563) 35 mmol/L [facility]oundCREATININE, URINE [id number] 23:31:00* Test Item Value Reference Range Interpretation Comme nts CREAT U (test code = 6477865678) 134.7 mg/dL [facility]CT GLUCOSE (AUTOMATED)2020-08-23 22:41:00* Test Item Value Reference Range Interpretation Comme nts POCT GLU (test code = 0421733276) 118 mg/dL 70-110 H Lab Interpretation (test cod e = 73903-6) Abnormal [facility]OVID-[facility] (ID NOW RAPID TESTING)2020-08-23 22:16:00* Test Item Value Reference Range Interpretation Comme nts SARS-CoV-2 Rapid ID NOW (test code = 73561-0) Not Detected Not Detected DAKSHA (test code = DAKSHA) ID NOW COVID-19 As say is an isothermal nucleic acid amplification test intended for the qualitative detection of nucleic acid from SARS-CoV-2 viral RNA in nasopharyngeal ([employer]) specimens. It is used under Emergency Use [...] patient testing if clinically indicated. Lab Interpretation (test code = 89276-4) Normal [facility] WITH [id number] 21:22:00* Test Item Value Reference Range Interpretation Comme nts WBC (test code = 6690-2) See_Comment H [Automated message] The system which generated this result transmitted reference range: 4.20 - 10.70 10*3/?L. The reference range was not used to interpret this result as normal/abnormal. RBC (test code = 789-8) See_Comment L [Automated message] The system which generated this result transmitted reference range: 4.26 - 5.52 10*6/?L. The reference range was not used to interpret this result as normal/abnormal. HGB (test code = 718-7) 8.6 g/dL 12.2-16.4 L HCT (test code = 4544-3) 28.0 % 38.4-49.3 L MCV (test code = 787-2) 80.0 fL 81.7-95.6 L MCH (test code = 785-6) 24.6 pg 26.1-32.7 L MCHC (test code = 786-4) 30.7 g/dL 31.2-35 L RDW-SD (test code = 74968-2) 46.5 fL 38.5-51.6 RDW-CV (test code = 788-0) 16.1 % 12.1-15.4 H PLT (test code = 777-3) See_Comment H [Automated message] The system which generated this result transmitted reference range: 150 - 328 10*3/?L. The reference range was not used to interpret this result as normal/abnormal. MPV (test code = 06124-4) 9.1 fL 9.8-13 L NRBC/100 WBC (test code = 9919441309) See_Comment [Automated message] The system which generated this result transmitted reference range: 0.0 - 10.0 /100 WBCs. The reference range was not used to interpret this result as normal/abnormal. NRBC x10^3 (test code = 2196962462) See_Comment [Automated message] The system which generated this result transmitted reference range: 10*3/?L. The reference range was not used to interpret this result as normal/abnormal. GRAN MAT (NEUT) % (test code = 770-8) 87.0 % IMM GRAN % (test code = 0461310795) 0.50 % LYMPH % (test code = 736-9) 6.0 % MONO % (test code = 5905-5) 5.6 % EOS % (test code = 713-8) 0.6 % BASO % (test code = 706-2) 0.3 % GRAN MAT x10^3(ANC) (test code = 9437710072) 19.17 10*3/uL 1.99-6.95 H IMM GRAN x10^3 (test code = 5872152150) 0.10 10*3/uL 0-0.06 H LYMPH x10^3 (test code = 731-0) 1.32 10*3/uL 1.09-3.23 MONO x10^3 (test code = 742-7) 1.23 10*3/uL 0.36-1.02 H EOS x10^3 (test code = 711-2) 0.13 10*3/uL 0.06-0.53 BASO x10^3 (test code = 704-7) 0.06 10*3/uL 0.01-0.09 Lab Interpretation (test code = 91412-3) Abnormal [facility] [id number] 21:18:00* Test Item Value Reference Range Interpretation Comme nts TROPONIN I (test code = 6519220745) 0.008 ng/mL See_Comment [Automated message] The system which generated this result transmitted reference range: <=0.034. The reference range was not used to interpret this result as normal/abnormal. DAKSHA (test code = DAKSHA) Equal or Less than 0.034 ng/ml---Normal ?Note: Cardiac troponin begins to [...] patient's use of biotin. ? Lab Interpretation (test code = 05658-7) [facility] (NA, K, CL, CO2, GLUCOSE, BUN, CREATININE, CA)2020-08-23 21:12:00* Test Item Value Reference Range Interpretation Comme nts NA (test code = 2901315128) 139 mmol/L 135-145 K (test code = 4639612553) 4.2 mmol/L 3.5-5 CL (test code = 1966721498) 113 mmol/L 98-108 H CO2 TOTAL (test code = 4429446473) 16 mmol/L 23-31 L AGAP (test code = 6586483907) 2-16 BUN (test code = 8548654341) 46 mg/dL 7-23 H GLUCOSE (test code = 8095125097) 33 mg/dL 70-110 LL CREATININE (test code = 9270118934) 6.28 mg/dL 0.6-1.25 H CALCIUM (test code = 3969623756) 7.6 mg/dL 8.6-10.6 L eGFR Calculation (Non-) (test code = 2555015194) mL/min/1.73m2 eGFR Calculation () (test code = 1535239417) mL/min/1.73m2 DAKSHA (test code = DAKSHA) Association of [...] or abnormalities in imaging tests). Lab Interpretation (test code = 83625-0) Abnormal [facility]XR CHEST 1 [id number] 21:05:58Bibasilar pulmonary opacities are likely artifactual due to patient bodyhabitus/soft tissue attenuation. If there is high clinical suspicion for pulmonary pathology, recommend CTof the chest. Preliminary Report Dictated by Resident: Arsalan Anthony MD., have reviewed this study and agree with the abovereport.EXAM: XR CHEST 1 VW 08/23/2020 1:55 PM HISTORY: 39 years-old Male with sobCOMPARISON: CR,none TECHNIQUE: AP chest radiograph. FINDINGS: Lungs are hypoinflated with prominentvascular markings. Basilar andslightly peripheral ill-defined opacities are noted, however are morelikely due to soft tissue attenuation due to patient body habitus. Nopleural effusion or pneumothorax identified. The cardiomediastinal silhouette is normal in size for technique No acute osseous abnormalities. [facility], Radiant Results Inft User - 08/23/2020 3:07 PM CSTEXAM: XR CHEST 1 VW 08/23/2020 1:55 PMHISTORY: 39 years-old Male with sob COMPARISON: CR,none TECHNIQUE: AP chest radiograph.FINDINGS:Lungs are hypoinflated with prominent vascular markings. Basilar andslightly peripheral ill-defined opacities are noted, however are morelikely due to soft tissue attenuation due to patient body habitus. Nopleural effusion or pneumothorax identified.The cardiomediastinal silhouette is normal in sizefor techniqueNo acute osseous abnormalities.IMPRESSIONBibasilar pulmonary opacities are likely artifactual due to patient bodyhabitus/soft tissue attenuation.If there is high clinical suspicion for pulmonary pathology, recommend CTof the chest.Preliminary Report Dictated by Resident: Bella Chadwick,Arsalan Soto MD., have reviewed this study and agree with the abovereport.[facility])2020-08-23 21:04:00* Test Item Value Reference Range Interpretation Comme [facility] POCT GLU (test code = 2681848854) 73 mg/dL 70-110 Lab Interpretation (test cod e = 21941-3) Normal [facility]AC PANEL 20 + LACTIC [id number] 20:35:00* Test Item Value Reference Range Interpretation Comme [facility] PH (test code = 2) 7.35-7.45 L PCO2 (test code = 8584675422) See_Comment L [Automated messa ge] The system which generated this result transmitted reference range: 35 - 45 mmHg. The reference range was not used to interpret this result as normal/abnormal. PO2 (test code = 8223962867) See_Comment L [Automated messa ge] The system which generated this result transmitted reference range: 80 - 100 mmHg. The reference range was not used to interpret this result as normal/abnormal. HCO3 (test code = 4027329679) See_Comment L [Automated messa ge] The system which generated this result transmitted reference range: 22 - 26 mEq/L. The reference range was not used to interpret this result as normal/abnormal. BE (test code = 3970600969) See_Comment L [Automated messa ge] The system which generated this result transmitted reference range: -3.0 - 3.0 mEq/L. The reference range was not used to interpret this result as normal/abnormal. THB (test code = 7917032673) 9.8 g/dL 13.5-18 L %O2HB (test code = 0300930081) 90.7 % 94-99 L %COHB ART (test code = 0673181032) 0.3 % 0-1.5 %METHB ART (test code = 9182358677) 0.5 % 0.4-1.5 VOL%O2 ART (test code = 1740028179) 12.5 % 15-23 L NA (test code = 3756863131) 139 mmol/L 135-145 K+ (test code = 3337858322) 4.1 mmol/L 3.5-5 AC CA IONZ (test code = 5028367755) 4.20 mg/dL 4.5-5.3 L GLUCOSE (test code = 2137655514) 32 mg/dL 70-110 LL LACTIC ACID (test code = 6961418560) 1.00 mmol/L 0.5-2.2 Lab Interpretation (test code = 69810-6) Abnormal [facility] Consult Notes Date/Time Note Provider Source 2023-08-04 16:09:57 WDDdqRlnUlAwKXi0SjzaJ3O0yRap5PLIrk18td/O c5 [id number]7-46X33:09:57A ssociated Order(s): CONSULT NEPHROLOGY DATE OF SERVICE: 4CHIEF COMPLAINT: back and ankle painHISTORY OF PRESENT ILLNESS: Joss Brito is a 42 year old male who has a past medical history of Diabetes mellitus, ESRD on dialysis, Hypertension, and Open wound of heel. ESRD on TTS. Last HD session on Friday. Presented to hospital for lower back pain and ankle pain. He has been attended PT without relief of painPAST MEDICAL HISTORY:Past Medical History:Diagnosis DateDiabetes mellitusESRD on dialysisHypertensionOpen wound of heelLeftPAST SURGICAL HISTORY:Past Surgical History:Procedure Laterality DateCENTRAL VENOUS ACCESS CATHETER PLACEMENT Right 02/17/2023Surgeon: Natalya Quiroz MD; [facility] [place] [facility] LABFAMILY HISTORY:Family HistoryProblem Relation Age of OnsetNo Significant Medical Problems MotherNo Significant Medical Problems FatherSOCIAL HISTORY:Social HistorySocioeconomic HistoryMarital status: MarriedNumber of children: 1Highest education level: High school graduateTobacco UseSmoking status: NeverPassive exposure: PastSmokeless tobacco: NeverTobacco comments:Past secondhand exposure when a child, Grandmother smokedSocial Determinants of HealthFinancial Resource Strain: Low Risk (05/19/2023)Overall Financial Resource Strain (CARDIA)Difficulty of Paying Living Expenses: Not hard at allFood Insecurity: No Food Insecurity (05/19/2023)Hunger Vital SignWorried About Running Out of Food in the Last Year: Never trueRan Out of Food in the Last Year: Never trueTransportation Needs: No Transportation Needs (05/19/2023)PRAPARE - TransportationLack of Transportation (Medical): NoLack of Transportation (Non-Medical): NoPhysical Activity: Insufficiently Active (05/19/2023)Exercise Vital SignDays of Exercise per Week: 4 daysMinutes of Exercise per Session: 30 minSocial Connections: Unknown (05/19/2023)Social Connection and Isolation Panel [NHANES]Frequency of Communication with Friends and Family: More than three times a weekMarital Status: MarriedHousing Stability: Low Risk (05/19/2023)Housing Stability Vital SignUnable to Pay for Housing in the Last Year: NoNumber of Places Lived in the Last Year: 1Unstable Housing in the Last Year: NoALLERGIES:AllergiesAllergen ReactionsIodine DiarrheaShellfish Derived DiarrheaMEDICATIONS:No current facility-administered medications on file prior to encounter.Current Outpatient Medications on File Prior to EncounterMedication Sig Dispense RefillcalcitrioL 0.25 mcg capsule Take 1 capsule by mouth in the morning for 92 days. 30 capsule 3midodrine 5 mg tablet Take 1 tablet by mouth in the morning and 1 tablet at noon and 1 tablet in the evening. 90 tablet 2sevelamer 800 mg tablet Take 2 tablets by mouth in the morning and 2 tablets at noon and 2 tablets in the evening. Take with meals. 180 tablet 2atorvastatin 20 mg tablet Take 1 tablet by mouth at bedtime.gabapentin 100 mg capsule Take 1 capsule by mouth at bedtime.tamsulosin 0.4 mg 24 hr capsule Take 1 capsule by mouth in the morning.REVIEW OF SYSTEMS:Back pain and R ankle painSKIN: Patient denies skin changes, rashesHEENT: Patient denies headaches, blurred visionNECK: Patient denies neck pain, stiffnessPULMONARY: Patient denies shortness of breath on exertion, cough, purulent phlegm production, hemoptysis, wheezing, orthopnea, and/or paroxysmal nocturnal dyspnea.CARDIOVASCULAR: Patient denies chest pain and/or palpitationsGASTROINTESTINAL: Patient denies decreased appetite, nausea, vomiting, abdominal pain, constipation, diarrhea, hematemesis, melena, and/or hematochezia.MUSCULOSKELETAL: Patient denies joint pain, stiffness, swelling, limitation of motion, tenderness, and/or redness.PERIPHERAL VASCULAR: Patient denies pain/discomfort upon walking, coldness, numbness, redness, swelling, and/or tenderness.HEMATOLOGIC: Patient denies easy bruising, gingival bleeding, excessive bleeding after procedures.NEUROLOGICAL: Patient denies syncope, dizziness/lightheadedness, vertigo, weakness, numbness and/or paresthesias, tremors and/or other involuntary movements.PHYSICAL EXAMINATION:Vitals:08/04/23 0414 08/04/23 0708 08/04/23 1127 08/04/23 1530BP: (!) 162/104 (!) 154/98 (!) 146/94 (!) 166/96BP Location: Left arm Left armPatient Position: Supine SupinePulse: 93 86 97 97Resp: 16 18 17 17Temp: 35.8 ?C (96.5 ?F) 36.2 ?C (97.2 ?F) 36.7 ?C (98.1 ?F) 36.7 ?C (98 ?F)TempSrc:SpO2: 98% 96% 99% 99%Weight:Height:SKIN: No significant skin lesions, and/or color changes.HEENT: Normocephalic, atraumatic.NECK: Supple, full range of motionCHEST: Clear to auscultation and percussion.HEART: Normal S1, S2, without murmurs, rubs, and/or gallops.ABDOMEN: Normoactive bowel sounds in all quadrants, without tendernessEXTREMITIES: No clubbing, cyanosis, and/or edema. + joint tenderness.NEURO: Without asterixisLABORATORY DATA:Admission on 4Component Date ValueWBC 08/03/2023 13.36 (H)RBC 08/03/2023 3.49 (L)HGB 08/03/2023 9.2 (L)HCT 08/03/2023 29.2 (L)MCV 08/03/2023 83.7MCH 08/03/2023 26.4MCHC 08/03/2023 31.5RDW-SD 08/03/2023 46.2RDW-CV 08/03/2023 15.5 (H)PLT 08/03/2023 467 (H)MPV 08/03/2023 9.2 (L)NRBC/100 WBC 08/03/2023 0.0NRBC x10^3 08/03/2023 <0.01GRAN MAT (NEUT) % 08/03/2023 76.2IMM GRAN % 08/03/2023 0.40LYMPH % 08/03/2023 13.0MONO % 08/03/2023 7.1EOS % 08/03/2023 2.8BASO % 08/03/2023 0.5GRAN MAT x10^3(ANC) 08/03/2023 10.18 (H)IMM GRAN x10^3 08/03/2023 0.05LYMPH x10^3 08/03/2023 1.74MONO x10^3 08/03/2023 0.95EOS x10^3 08/03/2023 0.37BASO x10^3 08/03/2023 0.07NA 08/03/2023 139K 08/03/2023 4.3CL 08/03/2023 105CO2 TOTAL 08/03/2023 21 (L)AGAP 08/03/2023 13BUN 08/03/2023 50 (H)GLUCOSE 08/03/2023 100CREATININE 08/03/2023 7.77 (H)TOTAL BILI 08/03/2023 0.5CALCIUM 08/03/2023 8.3 (L)T PROTEIN 08/03/2023 8.5 (H)ALBUMIN 08/03/2023 4.0ALK PHOS 08/03/2023 104ALTv 08/03/2023 9AST(SGOT) 08/03/2023 18eGFR 08/03/2023 8.2WBC 08/04/2023 11.70 (H)RBC 08/04/2023 3.54 (L)HGB 08/04/2023 9.1 (L)HCT 08/04/2023 29.6 (L)MCV 08/04/2023 83.6MCH 08/04/2023 25.7 (L)MCHC 08/04/2023 30.7 (L)RDW-SD 08/04/2023 46.3RDW-CV 08/04/2023 15.2PLT 08/04/2023 485 (H)MPV 08/04/2023 9.2 (L)NRBC/100 WBC 08/04/2023 0.0NRBC x10^3 08/04/2023 <0.01GRAN MAT (NEUT) % 08/04/2023 77.4IMM GRAN % 08/04/2023 0.30LYMPH % 08/04/2023 12.6MONO % 08/04/2023 5.3EOS % 08/04/2023 3.7BASO % 08/04/2023 0.7GRAN MAT x10^3(ANC) 08/04/2023 9.07 (H)IMM GRAN x10^3 08/04/2023 0.03LYMPH x10^3 08/04/2023 1.47MONO x10^3 08/04/2023 0.62EOS x10^3 08/04/2023 0.43BASO x10^3 08/04/2023 0.08NA 08/04/2023 139K 08/04/2023 4.3CL 08/04/2023 104CO2 TOTAL 08/04/2023 22 (L)AGAP 08/04/2023 13BUN 08/04/2023 56 (H)GLUCOSE 08/04/2023 79CREATININE 08/04/2023 9.35 (H)CALCIUM 08/04/2023 8.4 (L)eGFR 08/04/2023 6.6NA 08/04/2023 137K 08/04/2023 4.3CL 08/04/2023 102CO2 TOTAL 08/04/2023 21 (L)AGAP 08/04/2023 14BUN 08/04/2023 57 (H)GLUCOSE 08/04/2023 108CREATININE 08/04/2023 9.51 (H)CALCIUM 08/04/2023 8.3 (L)eGFR 08/04/2023 6.4PROTIME PATIENT 08/04/2023 12.8 (H)INR 08/04/2023 1.1CRP 08/04/2023 14.0 (H)ESR 08/04/2023 120 (H)FERRITIN 08/04/2023 422.0ASSESSMENT/PLAN:ESRD on hemodialysis (primary encounter diagnosis)Comment: TTSPlan: HD tomorrow and renally dose medications.Metabolic acidosisPlan: Use buffer with HDSecondary hyperparathyroidism (of renal origin)Plan: Take binders with meals.Labs ordered for Vit DNeeds pth, phosphorousAnemia in chronic kidney diseasePlan: Epogen for HGB < 10Check iron panel if no infectious processNutritional assessmentPlan: Follow renal dietVascular access for dialysis for ESRDPlan: Use ROSALIA Redd, RN, ACNP-CDepartment of NephrologyNurse PractitionerOffice [phone] signed by Nay Guadalupe ACNP at 08/05/2023 2:38 PM EVH42797-1Cqeymsy xmjgIP0725-97-76J86:38:21Consult noteTXT1.2.840.635658.1.13.104.2.7.2.69863 9|[id number] for patient rqhl55902-5Cvkrhcf noteLNNARRATIVEFormatted C-CDA narrative textNP-ACUTE CARE MIDLEVEL PROVIDERNP-ACUTE CARE MIDLEVEL PROVIDERUT[address] Dq[id number] ZEYMMKSVYNRFADOB2025-42-50L24:38:211.2.840 .223180.1.72.3.15|1.2.840.062677.1.13.104. [id number] [employer]-ACUTE CARE MIDLEVEL PROVIDER [facility] 2023-08-04 11:38:00 0Q5xuSXzuTaChpvEXbHBngw9WdYFwsrlfvDAS9eC c0 VDAvd3+YJvkWloa9CZmJv84327-62-73H69:38:00A ssociated Order(s): CONSULT ADULT OCCUPATIONAL THERAPY OT GENERAL EVALUATIONConsult received via [employer], EMR reviewed and evaluation completed 08/04/23. Patient referred to occupational therapy for evaluation and treatment secondary to Lumbar pain (L4-5). Patient agreeable to participate in occupational therapy. Pt known to OT services. Pt seen in conjunction with Guillermo Duff DPT secondary to limited activity tolerance due to pain. Only billing for OT services.Discharge Recommendations:Therapy Needs and Potential:- Patient would benefit from continued skilled occupational therapy services to address: Decline in basic activities of daily living, Decline in instrumental activities of daily living, and Decreased endurance- Patient demonstrates good potential to improve and meet therapy goals with further skilled occupational therapy services.- Patient appears motivated to improve their B/IADLs and return to their previous level of function.- Patient exhibits limited activity tolerance.- Patient able to follow commands: 1-step Yes, Multi-step NT, Inconsistencies NoChallenges to Home Transition:- Requires supervision or verbal cues for BADLS- Requires supervision or verbal cues for IADLS- Limited caregiver availability- Increased risk of fallsEquipment Recommendations:Long handled sponge and Long handled reacherPLAN OF CARE: At least 2x/week (to follow up if pt possibly has surgery during this admission)Precautions:Weight bearing status: NAGeneral: PPE Utilized: Gloves and FallBracing: N/ACurrent Occupational Performance and/or Treatment:AM-PAC 6 Clicks (Raw Score 0=Dependent, 24=Independent; Low function Raw Score 0= Dependent, 32=Independent):Raw Score - Daily Activity: 20T-Scale Score - Daily Activity: 42.03Feeding: IndependentGrooming: IndependentBathing: NT; educated pt on use of shower chair (vs. shower stool) to prevent falls in the shower.UB Dressing: NT, however pt demonstrated functional ROM to don pullover shirt. Anticipate Independent with donning/doffing pullover shirt.LB Dressing: Maximum Assistance, pt unable to don socks but lifted feet for OT to complete task. Pt does not wear socks at baseline, preferring to wear shoes he can slide on insteadToilet Transfer: Supervision, pt descended/ascended using grab bars. Supervision secondary to pt history of slipping from toilet after orthostatic hypotension episode on previous admission.Functional Mobility: HOB elevated; supine<>sit Supervision, sit<>stand Supervision, ambulation<>bathroom without assistive device.Patient/caregiver educated on: Adaptive equipment and ADL training (see above), Positioning, Role of OT, and Safety awarenessPatient left semireclining in bed with call mills in reach. Please, see full evaluation below for more detail.OT EVALUATION:42 year old male Admit date: 08/03/2023 Date of onset: ~2 days priorAdmit Diagnosis: Lumbar pain [M54.50]OT Diagnosis: Impaired BADL independence, Impaired IADL independence, Weakness, and Decreased endurancePMH:Past Medical History:Diagnosis DateDiabetes mellitusESRD on dialysisHypertensionOpen wound of heelLeftPSH:Past Surgical History:Procedure Laterality DateCENTRAL VENOUS ACCESS CATHETER PLACEMENT Right 02/17/2023Surgeon: Natalya Quiroz MD; [facility] [place] [facility] BY [facility]ASCULAR LABPAIN:Pain Location: right leg and right footPain rating before treatment: 3, After treatment: 3Pain Management: Reports taking pain meds, Decreased movement aides in some pain reduction, and Repositioning ProvidedOCCUPATIONAL ROLES/HOME ENVIRONMENT:Home environment: Lives with spouse, 27/01 supervision/assistance is not available, Mobile Home/Trailer, and Stairs .Bathroom access: YesBathroom setup: ShowerOccupation(s): DisabledFunction prior to admission: Household ambulation, Community ambulation, Independent with BADLs, and Independent with IADLsSuspected ischemic or hemorraghic stroke patient: NoEquipment prior to admission: Shower stoolPERFORMANCE SKILLS/FACTORS:UE Muscle Tone: bilateral WNLUE ROM: bilateral AROM WFLUE Strength: FIDELINA UE 4/5Hand dominance: leftDexterity/Coordination: bilateral IntactEndurance - Sitting: Good Standing: Fair+Sitting Balance - Static: Good Dynamic: Fair+Standing: Balance - Static Fair+ Dynamic: Fair+Dizziness: NoSkin Integrity: No breakdown notedSensation: Patient denies numbness and tinging.Oral Motor: WFLCommunication: Able to verbalize needs Yes Other: N/AVision: WFL Yes Other: reading glassesHearing: good; no issues reportedCOGNITION:Orientation: NTFollows Commands: 1-step Yes Multi-step NT Inconsistencies NoSafety Awareness/Judgment: FairPROBLEM LIST: Decreased independence with IADL and Decreased strength/endurance for functional activityREHAB POTENTIAL/PROGNOSIS: fairPATIENT/FAMILY GOALS: none statedTREATMENT/INTERVENTION PLAN: Patient/Caregiver Education, Equipment recommendations, and Daily living activitiesGOAL(S): By discharge, patient will increase independence in daily living skills as follows:1 Patient will perform toilet transfer with independence.2 Patient will perform UB dressing with independence.3 Patient will perform LB dressing with independence.4 Patient will increase endurance for functional activity as evidenced by ability to sustain 25 minutes of active participation.5 Patient/caregiver will verbalize/demonstrate understanding/proficiency in the following home programs: Energy conservation and 6 Fall preventionPATIENT-FAMILY TEACHINGPatient provided with preferred teaching of verbal information and demonstration on Adaptive equipment and ADL training (see above), Positioning, Role of OT, and Safety awareness. Shows readiness to learn. Verbal instruction and Demonstration teaching provided. Individual verbalizes understanding of teaching provided.AUNDREA Forbes MOTTotal Timed Treatment Codes: 5 MinTotal Treatment Time: 19 MinPatient Complexity Level Moderate - An occupational therapy evaluation of moderate complexity was completed using the above tests and measures. The following information was obtained: An occupational profile and medical and therapy history, including an expanded review of medical and/or therapy records and additional review of physical, cognitive, or psychosocial history related to current functional performance, Various standardized and non-standardized assessments were used to identify at least 3-5 performance deficits related to physical, cognitive, or psychosocial skills that result in activity limitations and/or participation restrictions, and Clinical decision making of moderate analytic complexity, which includes an analysis of the occupational profile, analysis of data from detailed assessment(s), and consideration of several treatment options. Patient may present with comorbidities that affect occupational performance. Minimal to moderate modification of tasks or assistance (e.g., physical or verbal) with assessment(s) is necessary to enable patient to complete evaluation component. [id number] fbrvYK2030-44-48H03:51:17Consult [id number] 9|[id number] for patient hlnl58793-0Eetpakv noteLNNARRATIVEFormatted C-CDA narrative [id number] A Kreager [address] Dr[id number] DYKZPSYSKHPEONVX3294-05-27N77:51:171.2.840 .[id number]|[id number]. [id number] Ashia Kate OT [facility] 2023-08-04 11:36:00 10rDU+JVc1XukyLORa/u4dNEVTPeZHmA7sOjDPNB ZD xDzzswIrn6TczNxA5N3omZ9330-02-26T77:36:00A ssociated Order(s): CONSULT ADULT PHYSICAL THERAPY Patient agreeable to working with physical therapy. Patient met semi reclined in bed.Patient seen in Collaboration with Occupational Therapy due to complexity of his case. Seen with Ashia Kate, DAKOTAHR, REJI. Patient will be billed for PT portion only.Recommend nursing staff utilize 1 person Supervision- no assistive device to safely assist patient with mobility out of the bed or chair.PHYSICAL THERAPY EVALUATIONConsult received, chart reviewed and evaluation complete this date. Patient is referred to PT for evaluation and treatment. Patient is a 42 year old male who presents to hospital for Lumbar pain [M54.50]Vertebral osteomyelitis [M46.20] .Back pain likely 2/2 L4-L5 lytic lesion vs renal osteodystrophy, progressingESRD R IJ subclavian, TTSHx NIDDM2, A1c 5.6 05/29Microcytic anemia likely 2/2 LATOYA vs Renal diseaseThrombocytosis likely 2/2 aboveLow vitamin DDischarge Recommendations:Therapy Needs and Potential:Patient would benefit from continued physical therapy services to address: decline in bed mobility decline in transfers decline in gait and/or balance decline in stair/step negotiation decreased strength decreased endurancePatient demonstrates fair potential to improve and meet therapy goals with further physical therapy services.Patient appears motivated to improve their functional mobility and return to their previous level of function.Challenges to Home Transition:increased risk of fallsdecreased caregiver availabilitydecreased safety awarenessenvironmental barriersEquipment recommendations:no device and 1 person supervision to bathroomCurrent Functional Status and/or Treatment:AM-PAC 6 Clicks (Raw Score 0=Dependent, 24=Independent; Low function Raw Score 0= Dependent, 32=Independent):Raw Score - Basic Mobility : 17T-Scale Score - Basic Mobility : 39.67Bed Mobility:Rolling: SupervisionSupine-sit: SupervisionSitting balance GoodSit to supine: SupervisionPatient requires 30 % verbal/ visual cues for proper hand/ foot placement and use of bed rails.Transfers:sit-stand: SupervisionStand to sit: Supervision using no deviceStand pivot transfer: SupervisionStatic/dynamic standing balance: Fair+Patient able to get up from different surfaces with bilateral arm push.Patients needs rest breaks in between activity due to increase pain on Right LE.Ambulation:Assisted patient with ambulation as follows: 2 Min Walk Test 150 feet using no device and Supervision.Patient presenting with Step-to and (+) ataxic gait pattern.Instructed patient in directional changes and head movements in all planes during gait trial resulting in no instability and no LOB. Patient c/o increase pain on back and right LE when he is sitting and walkingTherapeutic exercise:patient educated in Adaptive equipment , Deep breathing, Fall prevention, General strengthening, Positioning, Relaxation/breathing techniques, and Safety awareness., instructed patient in the following: ankle pumps, heel slides, hip abduction/adduction, and patient/caregiver instructed to perform HEP 1-2 times per day, 10 repetitions.Functional Outcome Measures: (Values within the past 12 hours)Tinetti Gait Score- # / 12Initiation of gait: Hesitancy or multiple attempts to startStep length: Only on foot passes the otherFoot clearance: Only one foot clears the floor during swing phaseStep Symmetry: Step lengths not equalStep continuity: Stopping/dis-continuous stepsPath: Marked deviationTrunk: No sway, but flex of knees/ back or spreads armsWalking: Heels apartTinetti Gait Score: 3Tinetti Gait Score Interpretation: < 7 - Increased risk for fallsTINETTI BALANCE SCORE- # / 16Sitting balance: Steady, safeArises: Able, uses arms to helpAttempts to Rise: Able, requires > 1Immediate standing balance (first 5 sec): Steady but uses walker or other supportStanding Balance: Steady but CB > 4 inches or uses AD/other supportNudged 3 times *: Staggers, grabs, catches selfEyes closed*: SteadyTurning 360 degrees: Either discontinuous or unsteadySitting down: Uses arms or motion not smoothTinetti Balance Score: 9Tinetti Balance Interpretation: >= 9 - Low risk for fallsAfter session, patient semi reclined in bed. Call button provided. Communicated with ANDREIA Dockery OF CARE:While in the hospital, PT will follow patient at least 3 times per week,once or twice a day, per patient's tolerance and needs.See below for complete details.Admit Date: 08/03/2023Hospital Diagnosis:Lumbar pain [M54.50]Vertebral osteomyelitis [M46.20]PT Diagnosis: Difficulty walking, Weakness, Malaise/fatigue, Dyspnea, Pain, and Abnormality of gait and balanceWeight Bearing Precaution: NAGeneral Precautions: PPE used:Gloves, General, Fall,IVBracing/Cast present or required:N/APMH:Past Medical History:Diagnosis DateDiabetes mellitusESRD on dialysisHypertensionOpen wound of heelLeftPSH:Past Surgical History:Procedure Laterality DateCENTRAL VENOUS ACCESS CATHETER PLACEMENT Right 02/17/2023Surgeon: Natalya Quiroz MD; [facility]Prior Living Situation: lives with their spouse and in a mobile home, (4) Stairs with bilateral hand railsAble to negotiate: YesDME: No devicePrior level of Mobility: community ambulation, house hold ambulation, ambulates with no deviceSuspected ischemic or hemorraghic stroke:NoSubjective: C/O Pain on back and Right Leg Ps 4./10Patient/Family Goals: "I want to do the surgery and get this over with".Patient/Family verbalizes understanding of condition: YesPAIN:-Pain Description: aching and dull-Pain Location: lower back and right leg-Pain rating before treatment: 3, After treatment: does not rate-Pain Management: Decreased movement aides in some pain reduction, Use of assistive device aides in pain reduction during mobility, and Repositioning ProvidedCOMMUNICATIONPrimary Language: EnglishAble to Verbalize needs: YesVision:reading glasses Hearing:good; no issues reportedORIENTATION/COGNITION:Oriented to: person, place, date/time, and situationAwake: Yes Alert: Yes Dizzy: NoFollows Commands: Yes1-Step Yes Multi-Step NoInconsistent: NoNEUROLOGICALLight Touch: within functional limits bilateral LEHeel to goff: WFLTone: WFLBALANCE:Sitting: Static: Good Dynamic: GoodStanding: Static: Fair+ Dynamic: FairRANGE OF MOTION: within functional limits bilateral LESTRENGTH: 4-/5 (G-), bilateral LEENDURANCE: Fair, Room airSKIN INTEGRITY: not intact, please see nurses notes for details.PROBLEM LIST: Decline in bed mobility, Decline in gait, Decline in transfers, Difficulty with stairs, Decreased strength, Decreased endurance, Decreased balance, and PainASSESSMENT: Patient is a 42 year old male seen secondary to the above listed diagnosis. Patient would benefit from continued PT to address the above listed deficits to maximize independence and safety with functional mobility.Rehabilitation Potential: fairGoals: The following goals are to maximize independence and safety with functional mobility to eventually return to prior living situation and prior functional status.Upon discharge, patient and/or family will demonstrate the followin. Rolling: IndependentSupine-sit: IndependentSitting balance ExcellentSit to supine: Independent2. sit-stand: IndependentStand to sit: Independent using no deviceStand pivot transfer: Independent3. Independent with ambulation, Feet: 300 using least assistive device.4. Independent up/down 4 stairs using no rails.5. Demonstrate or verbalize understanding of home exercise program in order to continue with their rehab on their own.Treatment Plan: Gait training, Gait training on stairs, Therapeutic exercise, Transfer training, Balance training, Bed mobility training, Equipment needs assessment, Safety education, patient/caregiver education, Pain management, and Neuromuscular Re-EducationPATIENT EDUCATION: Patient provided with preferred teaching of verbal information and demonstration on role of PT, plan of care, D/C planning. Shows readiness to learn. Verbal instruction and Demonstration teaching provided. Individual is able to read and verbalizes understanding of teaching provided and accurately returns demonstration of skill.Total Time Tx Codes in Minutes: 23 minTotal Treatment Time in Minutes: 30 minSuman Duff PT, [facility] [id number] [id number]:38:00Consult [id number] 9|[id number] for patient [id number] noteLNNARRATIVEFormatted C-CDA narrative text[address] Ou[id number] FMLXJOTAIUCPRWAJ2882-88-14N80:38:001.2.840 .660246.1.72.3.15|[id number]. [id number] [facility] 2023-08-04 08:50:19 ahYRk5aQYOmWBojuGjIb5wqAjZzvOe3/KSEB7GDM aeMPPEXRCRuRrvULnkPN4c0495-87-32P01:50:19A ssociated Order(s): CONSULT SURGICAL CO-MANAGEMENT (SCM) Images from the original note were not included.Surgical Co-Management Hospitalist (SCM) Consult ServiceInitial Preoperative Consultation Note/H&PPatient: Joss BritoMRN: [id number] of Consult: 4Referring Physician:Reason for Consult: Perioperative risk assessment and medical optimization/co-managementHPI:Patient is a 42 year old male with a PMH of ESRD HLD TTS, HTN, T2DM, HLD, MRSA bacteremia 2/2 infected perm cath who presents for worsening back pain over the last month, right ankle pain and an abscess at the back of his head with severe right ankle pain found with expanding L4-[address] Patient indicates he does not take any medications at home except for vitamin D replacement. He does not take midodrine.Patient last full session HD was Friday without issue. He has minimal uop. He reports he has not had to take antihypertensives but rather his pressures are soft especially with HD. He had a prior hospitalization for lowerback pain found complicated by syncope 2/2 orthostatic hypotension improved with midodrine/IVF. He is pending AVF placement but had completed vascular mapping.Patient denies fc/nvd. Denies rigors.In Addition:The patient does not have a history of complications with anesthesia or bleeding with prior surgeries.The patient does not have a history of venous thrombosis / pulmonary embolismTransfusion History: NoneHISTORIES (personally reviewed by me):Active Ambulatory ProblemsDiagnosis Date NotedAKI (acute kidney injury) 08/23/2020Morbid obesity with body mass index of 50 or higher 1Bacteremia 05/18/2023End stage renal disease 05/19/2023rimary hypertension 05/19/2023Mixed hyperlipidemia 05/19/2023Type 2 diabetes mellitus with chronic kidney disease on chronic dialysis, without long-term current use of insulin 05/19/2023cute midline low back pain with right-sided sciatica 05/19/2023Resolved Ambulatory ProblemsDiagnosis Date NotedAcute febrile illness 3Bacteremia associated with intravascular line, initial encounter 02/11/2023ast Medical History:Diagnosis DateDiabetes mellitusESRD on dialysisHypertensionOpen wound of heelPast Surgical History:Procedure Laterality DateCENTRAL VENOUS ACCESS CATHETER PLACEMENT Right 02/17/2023Surgeon: Natalya Quiroz MD; [facility] LABSocial HistorySocioeconomic HistoryMarital status: MarriedSpouse name: Not on fileNumber of children: 1Years of education: Not on fileHighest education level: High school graduateOccupational HistoryNot on fileTobacco UseSmoking status: NeverPassive exposure: PastSmokeless tobacco: NeverTobacco comments:Past secondhand exposure when a child, Grandmother smokedSubstance and Sexual ActivityAlcohol use: Not on fileDrug use: Not on fileSexual activity: Not on fileOther Topics ConcernNot on fileSocial History NarrativeNot on fileSocial Determinants of HealthFinancial Resource Strain: Low Risk (05/19/2023)Overall Financial Resource Strain (CARDIA)Difficulty of Paying Living Expenses: Not hard at allFood Insecurity: No Food Insecurity (05/19/2023)Hunger Vital SignWorried About Running Out of Food in the Last Year: Never trueRan Out of Food in the Last Year: Never trueTransportation Needs: No Transportation Needs (05/19/2023)PRAPARE - TransportationLack of Transportation (Medical): NoLack of Transportation (Non-Medical): NoPhysical Activity: Insufficiently Active (05/19/2023)Exercise Vital SignDays of Exercise per Week: 4 daysMinutes of Exercise per Session: 30 minStress: Not on fileSocial Connections: Unknown (05/19/2023)Social Connection and Isolation Panel [NHANES]Frequency of Communication with Friends and Family: More than three times a weekFrequency of Social Gatherings with Friends and Family: Not on fileAttends Jain Services: Not on fileActive Member of Clubs or Organizations: Not on fileAttends Club or Organization Meetings: Not on fileMarital Status: MarriedIntimate Partner Violence: Not on fileHousing Stability: Low Risk (05/19/2023)Housing Stability Vital SignUnable to Pay for Housing in the Last Year: NoNumber of Places Lived in the Last Year: 1Unstable Housing in the Last Year: NoFamily HistoryProblem Relation Age of OnsetNo Significant Medical Problems MotherNo Significant Medical Problems FatherHome medications:Prior to Admission medicationsMedication Sig Start Date End Date Taking? Authorizing ProvidercalcitrioL 0.25 mcg capsule Take 1 capsule by mouth in the morning for 92 days. 05/31/23 08/31/23 Rustam Barbosa DOmidodrine 5 mg tablet Take 1 tablet by mouth in the morning and 1 tablet at noon and 1 tablet in the evening. 05/30/23 Rustam Barbosa, DOsevelamer 800 mg tablet Take 2 tablets by mouth in the morning and 2 tablets at noon and 2 tablets in the evening. Take with meals. 05/30/23 Rsutam Barbosa, DOallopurinoL 100 mg tablet Take 3 tablets by mouth in the morning. Doctor Unassigned, No Nameatorvastatin 20 mg tablet Take 1 tablet by mouth at bedtime. Doctor Unassigned, No Namegabapentin 100 mg capsule Take 1 capsule by mouth at bedtime. Doctor Unassigned, No Nametamsulosin 0.4 mg 24 hr capsule Take 1 capsule by mouth in the morning. Doctor Unassigned, No NameCurrent Medications:Scheduled meds:docusate, 100 mg, DAILY[START ON 08/05/2023] enoxaparin (LOVENOX) SC Syringe, 40 mg, DAILYondansetron, 4 mg, ONCEpantoprazole, 40 mg, DAILYIV meds:PRN meds:morpHINE, 4 mg, R9AYGMqbrqklwabov, 4 mg, N2STULvsoTQXXVM, 5 mg, M7TOFEkftvlfmfjccc glycol (MIRALAX, CLEARLAX, HEALTHYLAX) oral powder, 17 g, QDAILYPRNALLERGIESAllergiesAllergen ReactionsIodine DiarrheaShellfish Derived DiarrheaREVIEW OF SYSTEMSAll systems negative except as otherwise stated in HPIPHYSICAL EXAMBP (!) 154/98 | Pulse 86 | Temp 36.2 ?C (97.2 ?F) | Resp 18 | Ht 1.753 m (5' 9") | Wt 150 kg (330 lb 11 oz) | SpO2 96% | BMI 48.83 kg/m?General: alert and awake, in bed with no apparent distressHead: Atraumatic; normocephalicEyes: EOMI; anicteric sclerae; pupils equal, round, and reactive to light.ENT: oropharynx clear; pink and moist mucous membranesNeck: large neckLungs: CTACardio: Regular rate and rhythm; S1, S2 without extra heart sounds. R subclavian IJ CDIGI: abdomen soft; non-tender; non-distended; normoactive bowel sounds; variable tympany with percussionExtremities: extremities are warm to touch; distal pulses intact. Trace edema lower extremitiesSkin: warm and dry; no rash or ulcersNeuro: no focal deficits; no facial droop; answers questions appropriately; able to recall past events without difficultyHem/lymph: no cervical lymph nodes palpatedLines/tubes/drains:Patient Lines/Drains/Airways StatusActive LDAsName Placement date Placement time Site DaysPeripheral IV 08/03/232253 Left Arm Ultrasound Used 08/03/232253 Arm less than 1HD Catheter Percutaneous (Balaji/temporary) Right Subclavian 08/04/23 0415 Subclavian less than 1Wound 08/23/202029 Other (comment) Back Left;Medial 08/23/202029 Back 1075Surgical Wound 0400 Surgical Wound 08/04/23 0400 -- less than 1LABS/IMAGING - reviewed, recent results as below:Lab ResultsComponent Value Date/TimeNA 139 08/03/2023 11:37 PMK 4.3 08/03/2023 11:37 PMCA 8.3 (L) 08/03/2023 11:37 PMCL 105 08/03/2023 11:37 PMBUN 50 (H) 08/03/2023 11:37 PMCREAT 7.77 (H) 08/03/2023 11:37 PMEGFR 8.2 08/03/2023 11:37 PMGLU 100 08/03/2023 11:37 PMTCO2 21 (L) 08/03/2023 11:37 PMWBC 13.36 (H) 08/03/2023 11:37 PMRBC 3.49 (L) 08/03/2023 11:37 PMPLT 467 (H) 08/03/2023 11:37 PMHGB 9.2 (L) 08/03/2023 11:37 PMHCT 29.2 (L) 08/03/2023 11:37 PMALB 4.0 08/03/2023 11:37 PMTPRO 8.5 (H) 08/03/2023 11:37 PMBILIT 0.5 08/03/2023 11:37 PMBILIUNCON 0.0 (L) 05/17/2023 06:36 AMBILICONJ 0.0 05/17/2023 06:36 AMALT 9 08/03/2023 11:37 PMAST 18 08/03/2023 11:37 PMALKPHOS 104 08/03/2023 11:37 PMPHOS 4.8 05/29/2023 01:21 PMMG 1.8 05/29/2023 01:21 PMPTINR 1.1 05/17/2023 12:29 PMPTPAT 12.0 05/17/2023 12:29 PMAPTTPAT 33 05/17/2023 12:29 PMNTBNP 3,920 (H) 02/18/2023 04:17 AMNTBNP 1,100 (H) 08/23/2020 02:35 PMTROPNI 0.027 05/26/2023 03:20 AMACPH 7.30 (L) 08/23/2020 02:30 PMACPCO2 30 (L) 08/23/2020 02:30 PMACPO2 61 (L) 08/23/2020 02:30 VAKIC8PV 90.7 (L) 08/23/2020 02:30 PMACCAIONZ 4.20 (L) 08/23/2020 02:30 PMMost Recent UA:Lab ResultsComponent Value Date/TimeUPROTEIN 100 mg/dL (A) 02/14/2023 11:53 AMUPH 5.0 02/14/2023 11:53 AMUGLUCOSE Normal 02/14/2023 11:53 AMUKETONES 5 mg/dL (A) 02/14/2023 11:53 AMUBILI Negative 02/14/2023 11:53 AMULEUKEST 250/uL (A) 02/14/2023 11:53 AMUNITRITE Negative 02/14/2023 11:53 AMUSPGRAV 1.018 02/14/2023 11:53 AMRadiology (48 HRS):XR ANKLE 3+ VW RIGHTResult Date: 08/04/2023No acute fracture or dislocation. Focal lucency along the medial talar dome may represent an osteochondral injury. Achilles tendinopathy. Osteoarthrosis. Preliminary Report Dictated by Resident: Mukund Desai I, Geno Braden MD., have reviewed this study and agree with the above report.Cardiographics (if applicable):ECG:Echo:Stress Test:CXR:PERIOPERATIVE RISK ASSESSMENT CALCUATIONS:All from MD cabello except RCRI (qxmd), calculated today unless stated otherwiseFunctional Status/Cochran Activity Score Index:Cochran Activity Status Index (DASI) from [employer] on 08/04/2023 All calculations should be rechecked by clinician prior to use RESULT SUMMARY:24.2 pointsThe higher the score (maximum 58.2), the higher the functional status.5.72 METsRCRI (Jean-Baptiste Index):Low RiskEstimated Rate of Myocardial Infarction, Pulmonary Edema, Ventricular Fibrillation, Cardiac Arrest, or Complete Heart Block0.9 %STOP BANG ([place]):STOP-BANG Score for Obstructive Sleep Apnea from [employer] on 08/04/2023 All calculations should be rechecked by clinician prior to use RESULT SUMMARY:3 pointsSTOP-BANGIntermediateRisk for moderate to severe OSAINPUTS:Do you snore loudly? --> 1 = YesDo you often feel tired, fatigued, or sleepy during the daytime? --> 1 = YesHas anyone observed you stop breathing during sleep? --> 0 = NoDo you have (or are you being treated for) high blood pressure? --> 0 = NoBMI --> 0 = ?35 kg/m?Age --> 0 = ?49 yearsNeck circumference --> 0 = ?40 cmGender --> 1 = MaleASSESSMENT & PLAN:Back pain likely 2/2 L4-L5 lytic lesion vs renal osteodystrophy, progressingESRD R IJ subclavian, TTSHx NIDDM2, A1c 5.6 05/29Microcytic anemia likely 2/2 LATOYA vs Renal diseaseThrombocytosis likely 2/2 aboveLow vitamin DPatient with pmhx ESRD likely 2/2 htn, hx mrsa bactermia/infected permcath, L4 lytic lesion with prior negative bone biopsy, presents for progressing lower back pain. Patient initially admitted to [facility] for lower back pain wherein investigation indeterminate on MRI suggestive of low grade osteo but concerning for low grade osteo with recommendation for bone biopsy. NSGY deemed no surgical intervention indicated and to [facility]. Prior path report I hospialization 05/2023 was negative for OM-Nephro consult for HD TTS. Next session is tomorrow-[facility] team capped, transfer [place]-iron panel/ferritin/vitamin D-IR lumbar biopsy, npo past midnight-hold antihypertensives for now given history of hypotension likely 2/2 aggressive HD.-resume sevelamer-hold ssi-bcx/crp/esr-hold off antibiotics for nowESRD HD TTS, R subclavianLow vitamin DHx infected permcathSubpleural nodule <5 mm unknown chronicity-outpatient follow up subpleural nodule-outpatient nephro follow up for AVF placementJoss Brito is a 42 year old year old male seen for perioperative risk assessment and medical optimization prior to surgery.The patient has the following that may increase general perioperative risk:For cardiovascular risk assessment, per the [place] [employer] guidelines, Proceed as scheduled without further testing or consultationBased on my assessment and experience, the patient's functional status is good for their age and gender.Overall, the patient is considered Normal (Baseline) Risk for perioperative complications for the planned procedure.Therefore, Joss Brito is considered medically optimized for the planned procedure: YesDVT Prophylaxis: Per PrimaryCode Status:Dispo:Medical Barriers to discharge:Miguelito ColmenaresInternal Medicine, PGY-3Portions of this note were created using a voice-recognition transcribing system.Typographical errors and incorrect words or phrases may have been missed during proofreading. Please interpret accordingly. ssociated attestation - Nate Portillo MD - 08/04/2023 1:40 PM CST Images from the original note were not included.[facility] General Medicine Inpatient ServiceFaculty/Attending Physician AttestationAfter discussion with the resident Dr Colmenares PGY-3 and the rounding team, I personally examined Joss Brito on the date of service indicated. I actively participated in the decision-making process regarding the patient's care. I agree with resident's note with additional comments as below.All Medical Issues (pulled from Lost My Name, may not all be relevant to this hospitalization):Patient Active Problem ListDiagnosis Date NotedLumbar pain 08/04/2023End stage renal disease 05/19/2023rimary hypertension 05/19/2023Mixed hyperlipidemia 05/19/2023Type 2 diabetes mellitus with chronic kidney disease on chronic dialysis, without long-term current use of insulin 05/19/2023cute midline low back pain with right-sided sciatica 05/19/2023acteremia 05/18/2023KI (acute kidney injury) 08/23/2020Morbid obesity with body mass index of 50 or higher 08/23/2020ctive Hospital Issues:See Resident Note for full detailsPrincipal Problem:Lumbar pain (08/04/2023) (POA: Yes)Resolved Problems:* No resolved hospital problems. *Current Medication List (Personally reviewed by me):Scheduled meds:atorvastatin, 20 mg, QHSdocusate, 100 mg, DAILYheparin (porcine) 5,000 units subcutaneous injection, 5,000 Units, U78Mkvafeydrebld, 40 mg, DAILYsevelamer, 1,600 mg, TID MEALSIV meds:PRN meds:morpHINE, 4 mg, O6XNTWeuxcpkngoos, 4 mg, D8LLDKhahKPYYIF, 5 mg, U7HLHJwjxdqivoherr glycol (MIRALAX, CLEARLAX, HEALTHYLAX) oral powder, 17 g, QDAILYPRNAdditional Faculty/Attending Physician Assessment:The pt is a 42 y/o M with a hx of obesity BMI 48, ESRD on TTS HD, prior MRSA bacteremia from [facility] who was admitted from 05/17/23- 05/30/23 due to having backing pain a/w a suspicion L4-L5 lytic lesion/mass, he underwent bx during that admission which was neg for OM but there was significant crush artifact. He returns with worsening back wait, CT revealed possible increase in the size of the lesion and subsequently underwent MRI today which is suspicious for possible osteo vs amyloid or other etiology. NSGY not planning on operative intervention, will facilitate xfer to medicine service for continued workup, nephro consulted for ESRD. Holding abx for now. 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 SCM Will s/o now that patient is going to a medicine team.Nate Downs Professor, General Internal MedicineThis document was partly dictated using Busy[employer] Voice Recognition software, please excuse any typographical errors that may have transpired.76014-5Agmorpg [id number], Jusjit1.2.840.541856.1.13.104.2.7.2.218973 OwgqlBmqqopOD6183-67-92T23:40:02Consult noteTXT1.2.840.671931.1.13.104.2.7.2.12512 9|[id number] for patient stws66176-1Txzsdlh noteLNNARRATIVEFormatted C-CDA narrative textIM-INTERNAL MEDICINE-INTERNAL MEDICINE[address] Sn[id number] FGJANRODPINKYNTO8993-55-94E97:40:021.2.840 .298777.1.72.3.15|1.2.840.969517.1.13.104. 2.7.2.727879_[id number] -INTERNAL MEDICINE [facility] 2023-02-12 13:08:18 oMtel7n7hJfcUof1NvmW2yDrQkfbz3blNwV8emXC 1j iwncuk7hw85AmKZDp11NOk3392-89-42U10:08:18A ssociated Order(s): CONSULT GENERAL SURGERY General Surgery ConsultReason for Consult: "Removal of infected hemodialysis catheter"History of Present Illness: Joss Brito is a 42 year old male presenting with bacteremia from an infected hemodialysis line. He has a past medical history of ESRD secondary to hypertension and diabetes. He was seen in clinic where he was found to be hypotensive following dialysis in addition to reporting fevers and was told to come to the ER. Workup revealed that he had gram-positive bacteremia. Of note he has a history of MRSA infections with a chronic left heel wound.On evaluation, he was afebrile and normotensive, though he has had a Tmax of 40 centigrade in the past 24 hours. I was able to easily remove the catheter as the purulence within the tract had already provided dissection. I sent the catheter tip for culture and sent pus for culturePast Medical History: Patient has a past medical history of Diabetes mellitus, ESRD on dialysis, Hypertension, and Open wound of heel.Past Surgical History: Patient has a past surgical history that includes hemodialysis access by vascular lab.Family History: Patient's family history includes No Significant Medical Problems in his father and mother.Social History: Patient reports that he has never smoked. He has never used smokeless tobacco.Review of systems:Constitutional: (+) fever, (-) chills, (-) weight changeIntegumentary: (-) rash, (-) lesionHead: (-) headache, (-) change in hearing, (-) change in visionNeck: (-) pain, (-) difficulty swallowing, (-) massHematologic: (-) bleeding disorderPulmonary: (-) cough, (-) shortness of breathCardiovascular: (-) chest pain, (-) palpitations, (-) syncopeGastrointestinal: (-) abdominal pain, (-), vomiting, (-) diarrheaGenitourinary: (-) dysuria, (-) increased frequencyEndocrine: (-) heat intolerance, (-) cold intolerance, (-) polyuria, (-) polydipsiaNeurologic: (-) numbness, (-) tingling, (-) weaknessBack: (-) pain, (-) spasmsMusculoskeletal: (-) muscle pain, (-) joint pain, (-) claudicationPsychiatric: (-) anxiety, (-) depression, (-) psychiatric disorderObjective:Vitals:Temp: [36.2 ?C (97.2 ?F)-40 ?C (104 ?F)] Heart Rate (monitor): [82-107] Pulse: [81-107] Resp: [8-21] BP: (85-121)/(52-68) MAP (mmHg): [65-84] Physical exam:General: no apparent distressNeurologic: alert and oriented to person, place, and timeCardiac: regular rate and rhythmChest: unlabored breathing Extremities: no gross deformities or injuriesVascular: normotensive with normal heart rateAbdomen: no rebound, guarding, or point tendernessSkin: purulent drainage from right-sided hemodialysis catheter siteLaboratory:There are no current results on file for these tests and/or test for 1 year.Recent Labs WBC 8.83 HGB 11.1* PLT 268 Recent Labs NA 136 K 4.4 CL 99 TCO2 21* BUN 30* CREAT 8.82* GLU 105 CA 8.6 Recent Labs BILIT 0.8 ALT 19 AST 35 ALKPHOS 106 ALB 4.2 There are no current results on file for these tests and/or test for 1 year.There are no current results on file for these tests and/or test for 1 year.Recent Labs HGBA1C 4.6 Radiology:XR CHEST 1 VWResult Date: 02/11/2023No acute intrathoracic abnormality. Mild perihilar vascular congestion. Lower thorax opacity likely artifactual due to body habitus.Microbiology:Blood cultures from 02/11/2023 growing gram-positive cocciAssessment:The patient is presenting with a picture consistent with CLABSI. His source of infection has been removed. Once his blood cultures clear, he can have a temporary. We will be ready and available to follow-up with both Balaji catheter placement and tunneled catheter placement as dialysis access is needed and bacteremia clears.Recommendations:- Agree with inpatient admission- IV antibiotics- Follow-up with blood cultures, line tip culture, and wound culture- Repeat blood cultures in 2 days- Agree with nephrology consultThe patient was discussed with the attending surgeon director of labor relations.Ervin Carpenter MD02/12/2023 14:30 ssociated attestation - Natalya Quiroz MD - 02/12/2023 3:58 PM CDT I personally examined the patient on 02/12/[address] Carpenter's resident note as written . I actively participated in the decision-making process. Please see the resident's note for additional details. Line removal today Line holidayWe will be available for temporary / tunneled [place] [address]-1Niycvqh [id number], [place]1.2.840.463142.1.13.104.2.7.2.8369 64ZyofNpuvikykHJ0365-20-40F88:58:12Consult noteTXT1.2.840.643035.1.13.104.2.7.2.49621 9|[id number] for patient tehr99836-3Andwooh noteLN[address] Xcrv[id number] WIENEKOAFFGJWSHK6278-08-62H63:58:121.2.840 .258843.1.72.3.15|1.2.840.708463.1.13.104. 2.7.2.727879_[id number] [facility] 2023-02-12 11:13:10 aHA6oSJsWSxemOxCW5Moh87FfeL10LAmJyjQasUk /S my8XzuBdVoSVcTniJsIY+j4559-57-50D36:13:10A ssociated Order(s): CONSULT NEPHROLOGY Consultation requested by: IM/Hospitalist, Dr. Lay for Consultation: ESRD, infected dialysis catheterDate of Service: 02/12/23History of Present Illness:Joss Brito is a 42 year old AAM with hx of chronic Type II DM, chronic malignant HTN, MRSA Lt heel chronic wound/callous who was recently initiated on HD a few mo after he presented with hypertensive urgency and fluid overload at [facility] and who has been dialyzing TTS at the [facility] who presents due to complaints of chills and concern for infected catheter. He reports staff noted drainage at exit site of catheter yesterday. He has also been experiencing chills, intra dialytic and post dialytic hypotension and weakness leading to two falls yesterday. He was febrile on admission yesterdayPAST MEDICAL HISTORY As mentioned aboveAllergies: Iodine and Shellfish derivedMEDICATIONSHospital Medications:Current Facility-Administered Medications Medication Dose Route Frequency Last Rate Last Admin [START ON 02/13/2023] carvediloL (COREG) tablet 12.5 mg 12.5 mg Oral BID MEALS ceFEPIme (MAXIPIME) 2,000 mg in NaCl 0.9% (NS) 100 mL MINI-BAG 2,000 mg IV Piggyback Q24H ABX 200 mL/hr at 02/12/23 1103 2,000 mg at 02/12/23 1103 dextrose 10% (D10W) bolus infusion 250 mL 250 mL IV Infusion PRN - SEE INSTRUCTIONS glucagon (GLUCAGEN DIAGNOSTIC KIT) injection 1 mg 1 mg Intramuscular PRN heparin (porcine) injection 5,000 Units 5,000 Units Subcutaneous Q12H NaCl 0.9% (NS) bolus infusion 500 mL 500 mL IV Infusion ONCE PRN Sliding Scale Insulin-Regular Subcutaneous AC+HS vancomycin (VANCOCIN) 1,000 mg in NaCl 0.9% (NS) 250 mL VIAL-MATE IV piggyback 1,000 mg IV Piggyback ONCE SOCIAL HISTORYSocial History Tobacco Use Smoking Status Never Smokeless Tobacco Never Social History Substance and Sexual Activity Alcohol Use None Social History Substance and Sexual Activity Drug Use Not on file Fhx:No mention of renal disordersREVIEW OF SYSTEMSROS:Constitutional: Fevers and chills reportedVision: No double vision or blurry vision reportedENT: No sinusitis or dysphagia reportedResp: No cough or dyspnea reportedCVS: No CP or palpitations reportedGI: Some nauseaGU: No dysuria or hematuria reportedHeme: No hx of DVTs or PE reported. Chronic anemiaEndo: Hx of DM, prolonged hypoglycemia 2nd to sulfonylurea use on prior admissionNeuro: No hx of CVA or seizuresPsych: No reports of depression or anxietyDerm: Hx of MRSA infected left heel callous/ulcerAllergic: No reports of anaphylaxis or urticariaPHYSICAL EXAMINATIONBP (!) 85/58 | Pulse 88 | Temp 36.3 ?C (97.3 ?F) (Temporal Artery) | Resp 19 | Ht 1.753 m (5' 9") | Wt 145 kg (319 lb 9.6 oz) | SpO2 95% | BMI 47.20 kg/m? PE:Gen: NAD, non tachypnecHEENT: Atraumatic, sclera anictericNeck: Rt IJ TDC (purulent drainage at exit site and on massaging tunneled tract)Resp: b/l air entry, no rhonchi appreciatedCVS: RRR, no loud murmur or gallop heart sounds appreciatedGI: Soft, obese, NTGU: acosta not presentExt: Stasis dermatitis, shins are non tenderNeuro: Awake, alert, responsive, non encephalopathic, non focalLABORATORYReviewed in the EMRASSESSMENT and PLANJoshua David Brito is a 42 year old male with PMH as listed above, consulted for above mentioned.ESRD 2nd to HTN/DM, with progressive CKD over the years, no prior regular f/u until recent hospitalization and initiation of dialysis.Completed HD yesterday, dialysis log sheet reviewed.Complication/infection of CVC/dialysis catheter, with fevers/chills, early GPC growth. Gram positive bacteremia. Likely also tunneled tract infection.Will request immediate removal of catheter for source control.Pt will be put on line holiday and will see if temp dialysis catheter is needed in the interim. His labs are stable for a ESRD pt and he left under EDW yesterday, prior volume overload had resolved. He was non anuric prev but reports producing less urine nowPt received less than recommended LD Vanc (did not receive weight based dose) yesterday, recommend additional 500-1000 mg once today and then to check random level in AM and will dose further maintenance Vanc with HDWill need follow up cultures, if persistently positive, he will need eval for endocarditis, otherNaveed MD Samantha, FASN [id number] kzlmUY2229-54-61U25:06:56Consult noteTXT1.2.840.248820.1.13.104.2.7.2.97621 9|[id number] for patient ysym42979-6Uhltldq [address] AxauU[id number] JOIOOFLFCWQJEIFZ0177-91-59Q67:06:561.2.840 .332967.1.72.3.15|1.2.840.098587.1.13.104. 2.7.2.727879_[id number] [facility] - Health History and Physical Notes Date/Time Note Provider Source 2023-02-12 03:23:38 xUjxk8XzhaKn2Z8FuHIk lzSwCGAjFJe13AhIdfrRSb ZhPlJV0EUeqgXErrI7XcOL6251-49-19M42:23:38F ormatting of this note is different from the original.MEDICINE [facility] ADMIT H&PDate of Service: 02/12/2023HIEF COMPLAINT: fever, nausea/vomiting, fatigueHistory of Present Bskuqom78 yo male with T2DM, HTN, ESRD (Friday, , Friday), osteromyelitis who presents to the ED secondary to fatigue, fever, nausea and vomiting that 3 days ago. When he went to the dialysis, noted to have drainage from his dialysis catheter (appeared to be more pus like). Afterwards from dialysis, he became more weak to the point where his legs gives out. Additional symptoms: decreased oral appetite, diarrhea (water), low urine.PAST MEDICAL HISTORY DiabetesHTNESRDPast Surgical HistoryNone reportedPast Family HistoryNoncontributoryALLERGIESAllergies Allergen Reactions Iodine Diarrhea Shellfish Derived Diarrhea MEDICATIONSNo current facility-administered medications on file prior to encounter. Current Outpatient Medications on File Prior to Encounter Medication Sig Dispense Refill blood sugar diagnostic (BLOOD GLUCOSE TEST) strip Check blood sugar bid before meals DX E11.9 dispense as covered per insurance 100 Strip 1 Blood-Glucose Meter [facility] Check blood sugar bid before meals DX E11.9 Dispense as covered 1 Each 0 Lancing Device [facility] Check blood sugar bid before meals DX E11.9 100 Each 5 glipiZIDE XL 2.5 mg 24 hr tablet Take 1 tablet by mouth daily with breakfast. 30 tablet 2 amLODIPine 10 mg tablet Take 1 tablet by mouth daily. 30 tablet 2 carvediloL 25 mg tablet Take 1 tablet by mouth 2 (two) times daily with meals. 60 tablet 2 hydrALAZINE 10 mg tablet Take 1 tablet by mouth every 8 (eight) hours. 90 tablet 2 lancets 23 gauge [facility] Use as directed 100 Each 1 sodium bicarbonate 650 mg tablet Take 1 tablet by mouth 2 (two) times daily. 60 tablet 2 I attest that the foregoing medication list in the medical record is true, accurate and complete to the best of my knowledge.SOCIAL HISTORYSocial History Socioeconomic History Marital status: Number of children: 1 Highest education level: High school graduate Tobacco Use Smoking status: Never Smokeless tobacco: Never Social Determinants of Health Financial Resource Strain: Low Risk (08/23/2020) Overall Financial Resource Strain (CARDIA) Difficulty of Paying Living Expenses: Not hard at all Food Insecurity: No Food Insecurity (08/23/2020) Hunger Vital Sign Worried About Running Out of Food in the Last Year: Never true Ran Out of Food in the Last Year: Never true Transportation Needs: No Transportation Needs (08/23/2020) PRAPARE - Transportation Lack of Transportation (Medical): No Lack of Transportation (Non-Medical): No Review of Systems Constitutional: Positive for appetite change (decreased) and fever. Negative for activity change, chills, diaphoresis, fatigue and unexpected weight change. HENT: Negative. Eyes: Negative. Respiratory: Negative. Breasts: Negative. Cardiovascular: Negative. Gastrointestinal: Positive for diarrhea, nausea and vomiting. Negative for abdominal distention, abdominal pain, anal bleeding, blood in stool, constipation and rectal pain. Genitourinary: Negative. Musculoskeletal: Negative. Skin: Negative. Neurological: Positive for weakness. Negative for dizziness, tremors, seizures, syncope, facial asymmetry, speech difficulty, light-headedness, numbness and headaches. Psychiatric/Behavioral: Negative. Hematological: Negative for adenopathy. Does not bruise/bleed easily. Endocrine: Endocrine negativePHYSICAL EXAMINATIONVitals: 02/11/23 2200 02/11/23 2300 02/11/23 2347 02/12/23 0000 BP: 113/66 102/60 96/52 Pulse: 99 93 90 95 Resp: 20 16 Temp: 39.6 ?C (103.3 ?F) 38.7 ?C (101.7 ?F) 36.8 ?C (98.3 ?F) TempSrc: Oral Oral Temporal Artery SpO2: 94% 100% 92% 95% Weight: 145 kg (319 lb 9.6 oz) Height: Physical ExamVitals and nursing note reviewed. Constitutional: General: He is not in acute distress. Appearance: Normal appearance. He is not ill-appearing, toxic-appearing or diaphoretic. HENT: Head: Normocephalic and atraumatic. Right Ear: There is no impacted cerumen. Left Ear: There is no impacted cerumen. Nose: Nose normal. No congestion. Mouth/Throat: Mouth: Mucous membranes are moist. Pharynx: No oropharyngeal exudate. Eyes: General: No scleral icterus. Extraocular Movements: Extraocular movements intact. Conjunctiva/sclera: Conjunctivae normal. Pupils: Pupils are equal, round, and reactive to light. Cardiovascular: Rate and Rhythm: Normal rate and regular rhythm. Pulmonary: Effort: Pulmonary effort is normal. Breath sounds: Normal breath sounds. Abdominal: General: Abdomen is flat. Bowel sounds are normal. There is no distension. Palpations: Abdomen is soft. Tenderness: There is no abdominal tenderness. There is no guarding. Musculoskeletal: General: Normal range of motion. Cervical back: Normal range of motion and neck supple. Right lower leg: No edema. Left lower leg: No edema. Skin: General: Skin is warm and dry. Neurological: Mental Status: He is alert. Psychiatric: Mood and Affect: Mood normal. Behavior: Behavior normal. Thought Content: Thought content normal. Judgment: Judgment normal. LABS - reviewed pertinent labs as below:ReviewedIMAGING - reviewed, pertinent results as below: PROCEDURE: XR CHEST 1 VW CLINICAL INDICATION: fever COMPARISON: 08/23/2020 FINDINGS:Right IJ dialysis catheter terminates at distal SVCThe lungs are clear with mild perihilar congestion. No pleural effusion or pneumothorax is seen. The cardiomediastinal silhouette is normal. No acute bony abnormality. IMPRESSION No acute intrathoracic abnormality. Mild perihilar vascular congestion.Lower thorax opacity likely artifactual due to body habitus.ASSESSMENT/PLANJoshua David Brito is a 42 year old male with PMH as listed above, admitted to the hospital with:Fever/hypotension: concerning for catheter related infection and septic shock-- Will continue with vancomycin intravenously-- Blood culture is pending-- Fluid hydration as neededESRD:-- Will consult renal consultDM:-- Will continue with insulin sliding scaleProphylaxis: DVT- heparinCode Status: [place]: [place] [address]-4Yewvtqs and physical lydeMF6680-50-35O61:21:01History and physical noteTXT1.2.840.461385.1.13.104.2.7.2.09054 9|[id number] for patient vqpb66955-5Rcqbvsp and physical noteLNUT[address] Ybsk[id number] PWYOXJBCGHEZTCWD3421-91-99F63:21:011.2.840 .828092.1.72.3.15|1.2.840.964278.1.13.104. 2.7.2.727879_[id number] [facility] Procedure Notes Date/Time Note Provider Source 2023-02-14 16:52:56 p+oUOhQSYQzVOOM2LnV6 CYBvJpiWhK28yoafaFJX/S vOJuw+IYKuqFGny9f5es7D9438-63-70M54:52:56P rocedure(s): CENTRAL LINE Procedure Note:Hob Machine Operator: Ervin Carpenter MD Procedure: HD CVC placementIndication: HDThe patient was consented. The right neck was prepped and draped in the standard fashion. I visualized the RIJ with US and was able to get a venous stick on my first attempt. I threaded the wire, on confirmed placement with US, dilated, and then placed a dual lumen 12 fr HD CVC. It flushed and randy back easily. I sewed it in place with 3-0 Nylon and placed the BioPatch. CXR confirmed placement and no PTX was appreciated. Dr. Quiroz was available to assist. ssociated attestation - Natalya Quiroz MD - 02/17/2023 11:34 AM CDT I was available for the procedure. Chart reviewed. CXR reviewed [place] [address]-1Ogevxjcmv nodnKI0129918Flrd, [place]1.2.840.189628.1.13.104.2.7.2.8369 30QitnTurxhzyeBS9502-74-04C95:34:13Procedu re noteTXT1.2.840.837840.1.13.104.2.7.2.87537 9|[id number] for patient iifc22552-6Efkatzjqc noteLN[address] [id number] LIANGOIRJXUAASWYILJGQ3354-16-41K63:34:131.2.840 .934641.1.72.3.15|1.2.840.144274.1.13.104. 2.7.2.727879_[id number] [facility] Notes Date/Time Note Provider Source 2023-09-25 09:58:49 0R8wK7n/9ckkoVdVwuCe20M/ESogecJAmL6SiJ cqhMWJ4ookNrpvi1RkvjNxuIrF4904-08-72H0 9:58:49 Patient up at this time and ambulatory out of the department with a steady gait. 05561-5Glndqnlwa department XwlgMO5625-40-20S01:59:20[facility] NoteTXT1.2.840.086761.1.13.104.2.7.2.7 75659|[id number] for patient dgwm92181-2EthgLMYQVYWGJRSXnasxithg C-CDA narrative jhhz711287369Rqac M Hayes RN[address] [id number] XIXGDFHGQNUVNBWVMJTD5756-26-33W15:59:2 01.2.840.572391.1.72.3.15|1.2.840.1143 50.1.13.104.2.7.2.727879_[id number] Angle Moore RN [facility] 2023-09-25 08:50:55 GnnZ1+fIvLTkZSVfwVP0cjQHYORm+NpGlOo2YX WaXe2eglffq8ysk6lBcsCMqVda7760-83-25E5 8:50:55 Patient discharged and waiting in room for his at this time. 68361-1Gjgfvpopw department FvfkGG4061-71-97Y98:51:12[facility] NoteTXT1.2.840.683423.1.13.104.2.7.2.7 94726|[id number] for patient rjwo95497-4XwicCWRSFUPTAFHQmwtstnrq C-CDA narrative textUT[address] Hx[id number] LKAFIUFMDWVERRKGVVJD2046-55-79S32:51:1 21.2.840.261120.1.72.3.15|1.2.840.1143 50.1.13.104.2.7.2.727879_[id number] [facility] 2023-09-25 08:49:09 haCrwpQAq6437SeNF34HwXsBfMkdpJ8wxKHH9x IqbrHWvtkyrlZXI8v+WqnC5O5A1193-26-91U1 8:49:09 Pt given printed and verbal discharge instructions regarding Back Pain, encouraged hydration,NO Prescriptions providedDiscussed ibuprofen and to take with food to avoid GI distress.Discussed Tylenol # 3 side affects and to avoid driving/operating machinery/or engaging in activities requiring alertness while taking.Pt verbalized understanding of instructions, pt awake alert oriented, resp reg unlabored, skin w/d, color appropriate for race, moves all ext well,pt encouraged to follow up with pcp and or NeurosurgeryAdvised to seek medical attention for new/prolonged/worsening of symptoms,No adverse reaction to meds given in ER noted upon dischargePIV d'cd, dressing to site, catheter in tact.Awake, alert oriented, resp reg unlabored, skin w/d, pt leaving amb with steady gait, in no apparent distress, 68819-2Nzgygyyuo department YpgwXR7711-50-76B16:50:51[facility] NoteTXT1.2.840.081267.1.13.104.2.7.2.7 42254|[id number] for patient lfiq52755-4UgihKELLUABCZJAPmxuteotd C-CDA narrative text[address] Bt[id number] UDRJOYIOOYSCDJYCMNJJ5013-89-84D11:50:5 11.2.840.329781.1.72.3.15|1.2.840.1143 50.1.13.104.2.7.2.727879_[id number] [facility] 2023-09-25 06:29:19 DNNj0Bssj5syRF+S9gPQd++nG3zhZERj1eauyn HqRtTMEbVAS62dDnUxcxVYwAQL4419-54-31Y6 6:29:19 CC: Pt reports that he went to pain management yesterday for his spinal mass and was not given injections, only prescribed tylenol #3s. Pt has had work ups including MRIs for this spinal mass and told it is not cancerous. Pt reports the pain has been consistent for 6 months causing him to miss HD yesterday.PMHx: see chartAwake, alert, oriented, resp reg unlabored, skin warm, color appropriate for race, moves all ext, but states he struggles to walkPt denies pain at this time, states when he stands up he has sharp pain. EMS gave 150mcg [place] P[place] 58513-2Zoosefign department Triage blfpIA4895-78-06G87:34:30[facility] Triage noteTXT1.2.840.722344.1.13.104.2.7.2.7 60666|[id number] for patient cqti50467-4Zuraptdhz department NoteLNNARRATIVEFormatted C-CDA narrative textUT56 [address] StreetWiomQeau[id number] HNMBXSXITSDWVSJMZABO0325-13-98M68:34:3 01.2.840.152498.1.72.3.15|1.2.840.1143 50.1.13.104.2.7.2.727879_[id number] [facility] 2023-09-25 06:27:00 WHAHPW4Bedu3icLczm0Vt2/ukARE2FtQDiJW5D tZSqun9fdfx+P3ws2fSRhnjUyZ1086-36-37M9 6:27:00 [facility] Emergency Department NotePatient Name: Joss BritoDate of : 1980 42 year old maleTreatment Room: [facility]/SI3Dvmfxbr Record Number: [id number] [facility] Physician: Nathaniel MosesPatient Escorted by: Self [9]Mode of Arrival: EMS - [facility]) [43]EMS Treatment Prior to ED Arrival:NET WASHER treatment: Medication (comment)NET WASHER treatment comments: Fent 150 mcg IVTravel and Exposure Screening:SymptomsDoes patient have any of these symptoms?: (not recorded)Exposure ScreeningHas patient had contact with someone with a communicable disease in the last month?: (not recorded)Diseases exposed to:: (not recorded)Is Patient ?: (not recorded)Exposure Date: (not recorded)Chief Complaint:Chief ComplaintPatient presents withBack PainSpinal massHistory of Present Illness:The patient presents from home with EMS for evaluation for chronic low back pain that has had for at least the past 6 months. He reports the pain is not different or worse today. No injury or trauma. No loss of bowel or bladder function. He has a known mass around the L4-L5 area with a biopsy showing no cancer. He did see pain management yesterday and was not given a spinal injection which she was requesting. He had his gabapentin dose increased and was switched from methocarbamol to tizanidine. He reports this has not helped him. He was given 150 mcg of fentanyl and route prior to arrival which has been helping with his pain. He is also dialysis patient and normally goes to dialysis on Friday, and Friday. He was supposed to have dialysis today, which is , but came to the ER instead.Here for evaluation.Past Medical History/Immunizations:Past Medical History:Diagnosis DateDiabetes mellitusESRD on dialysisHypertensionOpen wound of heelLeftTetanus received in last 5 years: YesAllergies:AllergiesAllergen ReactionsIodine DiarrheaShellfish Derived DiarrheaPast Social History:Tobacco UseNever smoked or used smokeless tobacco.Passive Exposure: PastComments: Past secondhand exposure when a child, Grandmother smokedPast Surgical History:Past Surgical History:Procedure Laterality DateCENTRAL VENOUS ACCESS CATHETER PLACEMENT Right 02/17/2023Surgeon: Natalya Quiroz MD; [facility] LABReview of Systems:Review of SystemsConstitutional: Negative for chills and fever.Respiratory: Negative for cough and shortness of breath.Cardiovascular: Negative for chest pain.Gastrointestinal: Negative for abdominal pain and vomiting.Genitourinary: Negative for dysuria.Musculoskeletal: Positive for back pain. Negative for neck pain and neck stiffness.Skin: Negative for wound.Neurological: Negative for dizziness.Psychiatric/Behavioral: Negative for agitation.Endocrine: Negative for goiter.Physical Exam:ED Triage Vitals [09/25/23 0633]Weight 149.2 kg (329 lb)Actual or estimated Estimated by patient/family reportHeight 1.753 m (5' 9")BP 136/80Pulse 96Resp 10Temp 37 ?C (98.6 ?F)Temp source OralSpO2 98 %Measured on Room airPhysical ExamVitals and nursing note reviewed.Constitutional:Appearance: Normal appearance. He is obese.HENT:Head: Normocephalic and atraumatic.Cardiovascular:Rate and Rhythm: Normal rate.Pulmonary:Effort: Pulmonary effort is normal. No respiratory distress.Comments: Right upper chest wall hemodialysis catheter site is clean, dry and intact.Abdominal:General: There is no distension.Palpations: There is no mass.Tenderness: There is no abdominal tenderness. There is no guarding.Musculoskeletal:Cervical back: Neck supple.Comments: +2 dorsalis pedis bilaterally.Skin:General: Skin is warm and dry.Neurological:General: No focal deficit present.Mental Status: He is alert and oriented to person, place, and time.Radiology:No orders to displayLab Results:Lab Results - No data to displayEKG:If EKG completed, see Procedure Note.Orders and Treatments:No orders of the defined types were placed in this encounter.Orders Placed This EncounterMedicationstiZANidine (ZANAFLEX) tablet 4 mgdexamethasone sod phos PF injection 10 mgFENTanyl PF (SUBLIMAZE (PF)) injection 75 mcgFirst Provider Eval:ED EventsDate/Time Event User Issqupjh41/21/24 0703 Medical Screening Begins JOI CORDOVA DO --09/25/23 0703 First Provider Evaluation JOI CORDOVA DO --ED COURSEDiagnosis/Impression as of 09/25/23 0836Chronic bilateral low back pain without sciaticaProcedures:ProceduresMDM:Medic al Decision MakingThe patient presents from home with EMS for evaluation for low back pain for the past 6 months. He denies any injury or trauma. He has a known mass around the L4-L5 area with biopsy showing no concern for cancer. He follows with pain management and last saw them yesterday. He was hoping to receive a spinal injection yesterday while in clinic but did not. He had his gabapentin dose increased and was switched from methocarbamol to tizanidine. He reports he has not picked up these prescriptions as of yet. This morning he reports he was unable to go to dialysis due to the back pain so called 911. He was given 150 mcg of fentanyl and route prior to arrival which has helped with his pain. No loss of bowel or bladder function.Vital signs are stable in the ER.The patient is morbidly obese.He is a right-sided hemodialysis catheter with the site is clean, dry and intact.+2 dorsalis pedis bilaterally.He is able to wiggle toes of his feet bilateral without difficulty.Will give the patient a dose of Decadron as well as tizanidine here in the ER.Anticipate discharge home later.0830 - his pain has started to improve.He remains stable here in the EC and is ok for dc home with pcp f/u.Recommend he contact his HD center about getting into HD today.Problems Addressed:Chronic bilateral low back pain without sciatica: chronic illness or injuryAmount and/or Complexity of Data ReviewedIndependent Historian: EMSExternal Data Reviewed: notes.Details: Pain management note from 09/24/23RiskO drugs.Prescription drug management.Parenteral controlled substances.Flowsheet Documentation:Scoring Tools:No data recordedDisposition/Condition:ED DispositionED DispositionDisch - HomeConditionStableComment--Discharge Medications:Patient's MedicationsSTART taking these medicationsNo medications on fileCONTINUE taking these medications which have NOT CHANGEDATORVASTATIN 20 MG TABLET Take 1 tablet by mouth at bedtime.GABAPENTIN 100 MG CAPSULE Take 1 capsule by mouth in the morning and 1 capsule at noon and 1 capsule in the evening.METHOCARBAMOL 500 MG TABLET Take 1 tablet by mouth 4 (four) times daily.MIDODRINE 5 MG TABLET Take 1 tablet by mouth in the morning and 1 tablet at noon and 1 tablet in the evening.SEVELAMER 800 MG TABLET Take 2 tablets by mouth in the morning and 2 tablets at noon and 2 tablets in the evening. Take with meals.TAMSULOSIN 0.4 MG 24 HR CAPSULE Take 1 capsule by mouth in the morning.TIZANIDINE 4 MG TABLET Take 1 tablet by mouth 3 (three) times daily as needed (muscle pain).START taking Modified Medications as PrescribedNo medications on fileSTOP taking these medicationsNo medications on fileFollow-up:Electronically signed by:Joi Cordova DO09/25/23 0836 37859-6Kkobbekui Emergency department QbcdAA9184-54-58X18:36:48Physician Emergency department NoteTXT1.2.840.437969.1.13.104.2.7.2.7 43929|[id number] for patient vvof76538-7Suyicdzlp department NoteLNNARRATIVEFormatted C-CDA narrative text[id number] KSWGUUMMDWIBZAPQUXEI4582-79-51V22:36:4 81.2.840.224238.1.72.3.15|1.2.840.1143 50.1.13.104.2.7.2.727879_[id number] [facility] 2023-09-19 08:30:00 tGyYT7L96ZZK9i154qGir6dJ6aLgrFxgWTRaak ekJwTAnRoVVoYPW927iPJ3X5N90220-39-57A8 8:30:00Addended by: TAYA GORDON on: 09/19/2023 02:12 PMModules accepted: Level of Service 43859-2Qvkiabvh GzvrpnbgJZ5740-01-37K56:12:12Addendum DocumentTXT1.2.840.673230.1.13.104.2.7 .2.599064|[id number] for patient chkx83053-4RrqqGPUEGLASAHEFanzagxmj C-CDA narrative text[id number] QYXUMKFFQOVBBGAIHEFK4511-59-80B92:12:1 21.2.840.643795.1.72.3.15|1.2.840.1143 50.1.13.104.2.7.2.727879_[id number] [facility] 2023-08-19 11:57:25 3Qzl6UCDk6EfEdPQQ9UO6oVkg8KgCbintJtzU7 joYAiDFfCUhrXkTvCKy4SRK4Lt3826-38-06K1 1:57:25 Pt dropped off lab results scanned in folder and placed in provider basket for review and signature. 20674-8Osyrbimmf encounter WlgbQY9462-73-98W57:58:42Telephone encounter NoteTXT1.2.840.005757.1.13.104.2.7.2.7 90804|[id number] for patient neqj47489-7EzqzVGJRHJTFKJZYdacemanu C-CDA narrative cyfn605441558Zbawbuz Loco [address] MhshQybusoxttSirwzcrmtXVHH3936263526KC PTGFMFBXXRUPBYEUVNTV9633-97-21B45:58:4 21.2.840.025434.1.72.3.15|1.2.840.1143 50.1.13.104.2.7.2.727879_[id number] [facility] 08:13:37 H68V7UvVNNs6wcam5pW2dFFfqzjWageYtbiN3I O8pDLYE/z9lqFc1NDivqis/7Zf3567-54-19O8 8:13:37 TRANSITIONAL CARE MANAGEMENT ASSESSMENT08/07/2023Joss BritoCnewpo947228XEzuiew Leon Wilson is a 42 year old Black or male was admitted on 08/03/[address] He was discharged on 08/05/23 with discharge disposition of HR- Routine Discharge.Admitting Physician: Lisbeth Gordon Diagnosis: Back pain likely 2/2 L4-L5 lytic lesion vs renal osteodystrophy, progressingLinked EpisodesType: Episode: Status: Noted: Resolved: Last update: Updated by:TRANSITION OF CARE TCM Active 08/05/2023 08/06/2023 1:48 PM Marian Gonzalez RNComments:08/05/2023TCM Biu-jmbs-bx-face outreach documentation:Discharge AssessmentChart Assessed: 08/07/23TCM Outreach Completed: 08/07/23Do you have a few minutes to speak with me about how you are doing at home?: Yes (Patient stated he is doing okay)Discharge InstructionsDo you understand your at-home instructions?: YesMedicationsHave you filled your prescriptions and do you have them in your home? : YesDo you know how to take your medications?: YesSuppliesDid you receive applicable home medical supplies/equipment?: N/AFollow Up AppointmentHas a follow up appointment been scheduled?: YesDo you have any questions about your follow up appointments?: NoAre you able to get to your appointment? Who will be taking you?: Yes (self)Home Health AssistanceHas the home health nurse contacted you since you've been home?: N/ASurvey - RecognitionDo you have any other questions or concerns at this time?: NoFuture Appointments:Future AppointmentsProvider Department Dept Phone08/07/2023 2:00 PM Nathaniel Moses MD [facility] [place] [phone] signed by Marian Gonzalez RN at 08/07/2023 8:14 AM XDO77339-4Tesdudxkr encounter DnqwTX7363-50-70U06:14:22Telephone encounter NoteTXT1.2.840.705684.1.13.104.2.7.2.7 06012|[id number] for patient iqbh02832-8JcaoXJHHFMZTINTZkhjhdaxc C-CDA narrative [id number] Gonzalez RNUT[address] LqaaYsdolmgdvMalieayffYGXZ9638591591QO DKWSMCHJNXUDDUIVLHVQ7686-43-18F78:14:2 21.2.840.294578.1.72.3.15|1.2.840.1143 50.1.13.104.2.7.2.727879_[id number] Marian Gonzalez RN [facility] 2023-08-06 13:48:08 3h2w6ZbIgUKSWTh6lBbhDfznSbA5vYbnGYPavY 59koLd8tpVTA39Y7I0eVzMs/Fi1092-15-65D0 3:48:08 Care Transition CM made f/u call to pt post-discharge. No response and call went to voicemail. CM left a discreet message with purpose of call and CM's call back information.Marian Gonzalez RN, BSNCare Executive Community Planning-Transitions of [phone] signed by Marian Gonzalez RN at 08/06/2023 1:48 PM GAY65233-7Fyeyvqmvb encounter BtxeRP2547-57-81E00:48:20Telephone encounter NoteTXT1.2.840.358090.1.13.104.2.7.2.7 68952|[id number] for patient tsgg53604-5SrqvSIHVSWSFWXUEwosqjcov C-CDA narrative [id number] NLTKLSWLNHVLPAHWNXDE0230-92-10I09:48:2 01..840.749587.1.72.3.15|.2.840.1143 50.1.13.104.2.7.2.727879_[id number] [facility] 2023-08-05 14:40:48 wyEbAaB4AaXHdJiIsPowch3McWEKAfQzMm5ZSx G/2bh7fcXRV1YGkwzBA2VITERu3260-48-49E9 4:40:48 Problem: Discharge PlanningGoal: Adequate for discharge08/05/2023 1440 by Nahed Oneill RNOutcome: Adequate for discharge08/05/2023 1211 by Nahed Oneill RNOutcome: Progressing as expectedGoal: Effective communication08/05/2023 1440 by Nahed Oneill RNOutcome: Adequate for discharge08/05/2023 1211 by Nahed Oneill RNOutcome: Progressing as expectedProblem: PainGoal: Control of pain at or below patient's documented comfort goal08/05/2023 1440 by Nahed Oneill, RNOutcome: Adequate for discharge08/05/2023 1211 by Nahed Oneill RNOutcome: Progressing as expectedGoal: Reduction in pain sensation08/05/2023 1440 by Nahed Oneill, RNOutcome: Adequate for discharge08/05/2023 1211 by Nahed Oneill RNOutcome: Progressing as expectedProblem: Falls, Risk ofGoal: Absence of falls08/05/2023 1440 by Nahed Oneill, RNOutcome: Adequate for discharge08/05/2023 1211 by Nahed Oneill RNOutcome: Progressing as expectedProblem: Infection RiskGoal: Absence of infection08/05/2023 1440 by Nahed Oneill RNOutcome: Adequate for discharge08/05/2023 1211 by Nahed Oneill RNOutcome: Progressing as expectedProblem: Procedure RoutineGoal: Knowledge of procedure08/05/2023 1440 by Nahed Oneill RNOutcome: Adequate for discharge08/05/2023 1211 by Nahed Oneill RNOutcome: Progressing as expected 45470-7Hhxo of care wxsgAS8697-55-31O70:40:57Plan of care noteTXT1.2.840.244834.1.13.104.2.7.2.7 21762|[id number] for patient zfst17001-7VkgzGDLLCZKVJYSSsarmszuv C-CDA narrative text[id number] UZPJNSHLODGZHUAINLXD7978-14-01G20:40:5 71.2.840.199472.1.72.3.15|1.2.840.1143 50.1.13.104.2.7.2.727879_[id number] [facility] 2023-08-05 12:19:38 pAssEnEYGVr5ULR7qUTEeVgAO2bRetLRLTHR+/ KFhEpalTLZQkxrqNaPTcK2qRI87510-28-76E0 2:19:38 HEMODIALYSIS NURSING NOTENumber Hours: 4.0 hoursBath: 3K 3 CaHeparin: Pre-dialysis 1000 units given. Mid-dialysis 1000 units given.Access: right Catheter permanent IJAntibiotics/Medications Given:Retacrit 2010 units IVMorphine 4mg IVComplications/Events of Treatment:Pt HD cath access appears clean w/o any signs of infection & cath dressing was changed. Arterial & venous cath ports both able to aspirate w/o any resistance & flush briskly.Pt had complain of leg pain w/ scale rating 7 out of 10. Morphine was given for pain. Upon reassessment pt states relief from pain & comfortable.Dr Rg rounded on pt & was aware on pt elevated diastolic pressures. MD states will contact primary team to recommend Hydralazine 50mg TID.Pt completed HD tx w/o any issues or complications. Blood returned & cath access packed w/ Heparin then Clear Guard cath caps placed.Net UF: 3000 mLWeight: Pre HD weight - 150.2 kg. Post HD weight - 147.2 kg. Used standing scale.Post Dialysis Treatment: BP 151/95 Pulse 110Handoff Report:Completed HD treatment sheet and attached it to the patients chart. Verbal phone report given to SUSANA Gtz.Mode of Transport Back to Unit: bed and [facility] by [facility] hemodialysis flowsheet for further details of the treatment. 89007-5Pwfxw RkgpOC9621-83-37J96:00:26Nurse NoteTXT1.2.840.976115.1.13.104.2.7.2.7 61206|[id number] for patient peyg76411-1UfmdWKRERCVXKYQYlolknfrt C-CDA narrative textUT[address] [id number] FJTKMSFFGSXBWPIFEQXE6960-20-97Y17:00:2 61.2.840.593220.1.72.3.15|1.2.840.1143 50.1.13.104.2.7.2.727879_[id number] [facility] 2023-08-05 12:11:42 5WArSLj3AIJwYSL0WxUtxmGecLvp+xas/Y/WjL MWVDDPgZfKgeSYZP023CYJ75zK0675-02-98N5 2:11:42 Problem: Discharge PlanningGoal: Adequate for dischargeOutcome: Progressing as expectedGoal: Effective communicationOutcome: Progressing as expectedProblem: PainGoal: Control of pain at or below patient's documented comfort goalOutcome: Progressing as expectedGoal: Reduction in pain sensationOutcome: Progressing as expectedProblem: Falls, Risk ofGoal: Absence of fallsOutcome: Progressing as expectedProblem: Infection RiskGoal: Absence of infectionOutcome: Progressing as expectedProblem: Procedure RoutineGoal: Knowledge of procedureOutcome: Progressing as expected 68736-6Fixz of care ufflTZ6205-45-06D64:11:50Plan of care noteTXT1.2.840.358162.1.13.104.2.7.2.7 50304|[id number] for patient zzxe00125-5DbceHDIAKFAAGLWDviuqztyz C-CDA narrative textUT[address] RvuoJucgystjlBlulxakobTEMG7494542584WO MXWSNLHDVEZCMYQUPFJV2874-06-08S44:11:5 01.2.840.346449.1.72.3.15|1.2.840.1143 50.1.13.104.2.7.2.727879_[id number] [facility] 2023-08-05 08:21:03 bweKid1itnCMfXUwKSUxCf1c04B1aH2H0F/Fl vGsrE2TCh92scxzy9NNCNrSOCK0131-75-36N4 8:21:03 Problem: Procedure RoutineGoal: Knowledge of procedureOutcome: Progressing as expectedHemodialysis Plan of care reviewed r/t treatment time & UF goal. Also reviewed possible side effects of HD tx, such as s/s of hypotension, cramping (during tx and at rare times after tx), N/V, CP or any other concerns. Patient acknowledge understanding of treatment plan. 11835-4Amxa of care cnhcWF6015-00-85U51:23:04Plan of care noteTXT1.2.840.081930.1.13.104.2.7.2.7 70670|[id number] for patient wzph98550-1IgohBFDXOMIEALEJeqlywlmb C-CDA narrative textUT[address] UskvVkcalgjojEoktufyjgHYYV0817585497ON UTPWZFSQEYDKHLHCUFET9971-92-69Y73:23:0 41.2.840.364349.1.72.3.15|1.2.840.1143 50.1.13.104.2.7.2.727879_[id number] [facility] 2023-08-05 01:30:11 nBsZMdNp20B1zkCPQTfOHUUqrEUnfQR1qihFEU lpRNo9NS1TB4OJx38EldS9tFQ49958-83-91I6 1:30:11 Problem: Discharge PlanningGoal: Adequate for dischargeOutcome: Progressing as expectedGoal: Effective communicationOutcome: Progressing as expectedProblem: PainGoal: Control of pain at or below patient's documented comfort goalOutcome: Progressing as expectedGoal: Reduction in pain sensationOutcome: Progressing as expectedProblem: Falls, Risk ofGoal: Absence of fallsOutcome: Progressing as expectedProblem: Infection RiskGoal: Absence of infectionOutcome: Progressing as expected 25714-1Dxdo of care lpepXS1900-46-43Y55:30:15Plan of care noteTXT1.2.840.616325.1.13.104.2.7.2.7 60482|[id number] for patient yymv47339-2TxipSJXBKLGPAAMBoyseraqi C-CDA narrative nodu077226912Hzucsj L Hillman RN[id number] QELNRMNOQCTDXJIHDGHC0968-15-52V31:30:1 51.2.840.444552.1.72.3.15|1.2.840.1143 50.1.13.104.2.7.2.727879_[id number] Keshia Hairston RN [facility] 2023-08-04 10:15:58 Yf6NF94C+FSyCRj5gfa7EoK5rpxL4PFLB6elbx iUyAbahsidKQ6oiUlEm1Fsmt2K1282-96-89F5 0:15:58 Problem: Discharge PlanningGoal: Adequate for dischargeOutcome: Progressing as expectedGoal: Effective communicationOutcome: Progressing as expectedProblem: PainGoal: Control of pain at or below patient's documented comfort goalOutcome: Progressing as expectedGoal: Reduction in pain sensationOutcome: Progressing as expectedProblem: Falls, Risk ofGoal: Absence of fallsOutcome: Progressing as expectedProblem: Infection RiskGoal: Absence of infectionOutcome: Progressing as expected 39151-7Ccjc of care upzcZU2377-41-08A80:16:03Plan of care noteTXT1.2.840.094427.1.13.104.2.7.2.7 16051|[id number] for patient rvsy33592-7NleqYZDZWSBHBHETaknxhkzx C-CDA narrative text[address]TXTX[address]75[address]US ZVFPAGQLUTVVIFBAGVUF3421-05-55E74:16:0 31.2.840.089271.1.72.3.15|1.2.840.1143 50.1.13.104.2.7.2.727879_[id number] [facility] 2023-08-04 07:34:19 5VoGWRLYTEycAb/OCn/lvsU3z+AMnBGTAHA2bp VZWa7D/9n62kqSQMPB066xWiT93218-23-23J5 7:34:19 Problem: Discharge PlanningGoal: Adequate for dischargeOutcome: Progressing as expectedGoal: Effective communicationOutcome: Progressing as expectedProblem: PainGoal: Control of pain at or below patient's documented comfort goalOutcome: Progressing as expectedGoal: Reduction in pain sensationOutcome: Progressing as expectedProblem: Falls, Risk ofGoal: Absence of fallsOutcome: Progressing as expectedProblem: Infection RiskGoal: Absence of infectionOutcome: Progressing as expected 00250-8Scwl of care rrovXV8574-88-81S77:34:32Plan of care noteTXT1.2.840.052093.1.13.104.2.7.2.7 26546|[id number] for patient jila11383-0FtxhDVYJDCIVEGDPsjjfxwhr C-CDA narrative [id number] JEFEADOGSWRBOPBQAZIO6395-20-08H94:34:3 21.2.840.921399.1.72.3.15|1.2.840.1143 50.1.13.104.2.7.2.727879_[id number] [facility] 2023-08-04 01:54:29 4AmsIwhDMuorZxtsewdYQS4gAqe7mNZvfaLjp2 +R4iIQ1GPvvREa9gAQxUXWmWnI6912-43-48X2 1:54:29 Nurse ReportReport given to Alin MEZA at [address] Chief complaint, assessment findings, infusion verify and orders reviewed. Plan of care [place] [address]-7Wtzrqevmq department KmkzQL8021-34-43X25:54:54[facility] NoteTXT1.2.840.483819.1.13.104.2.7.2.7 69157|[id number] for patient klfi08017-7YhmgFJPUHEVXIEIDhsdtsyii C-CDA narrative tfgm066599860XhyflBrittany Lofton RN[id number] FUEYYXQUBRXKNIVOPSNH5665-59-40K28:54:5 41.2.840.203066.1.72.3.15|1.2.840.1143 50.1.13.104.2.7.2.727879_[id number] Brittany Lofton RN [facility] 2023-08-04 00:12:33 ewkFUZLXsr/lx9wM6TkEsqG2ypctNvdLXKCteF Q0X7DOr9oiOrOMzeH4BlUHFbSc7323-05-55F8 0:12:33Associated Order(s): Incision and Drainage Incision and DrainageDate/Time: 08/04/2023 12:11 AMPerformed by: Wendy Singh FNPAuthorized by: Wendy Singh FNPConsent:Consent obtained: Verbal, written and emergent situationConsent given by: PatientRisks, benefits, and alternatives were discussed: yesRisks discussed: Bleeding, incomplete drainage, pain, infection and damage to other organsAlternatives discussed: ReferralUniversal protocol:Procedure explained and questions answered to patient or proxy's satisfaction: yesPatient identity confirmed: Verbally with patient and arm bandLocation:Type: AbscessLocation: HeadHead location: ScalpPre-procedure details:Skin preparation: Povidone-iodineSedation:Sedation type: NoneAnesthesia:Anesthesia method: Local infiltrationLocal anesthetic: Lidocaine 1% w/o epiProcedure type:Complexity: SimpleProcedure details:Ultrasound guidance: noNeedle aspiration: noIncision types: Stab incision and single straightIncision depth: DermalWound management: Probed and deloculated and irrigated with salineDrainage: Purulent and bloodyDrainage amount: ModerateWound treatment: Drain placedPacking materials: 07/10 in iodoform gauzePost-procedure details:Procedure completion: Tolerated ssociated attestation - Joi Cordova DO - 08/04/2023 2:04 AM CST I was personally available for consultation in the Emergency Department during this encounter and patient evaluation by Wendy Singh.89853-8Diyimdqhd department [id number], Sandra J1.2.840.234734.1.13.104.2.7.2.772063K jxnrsadEeehuqWDG9430-69-85F54:04:15[facility] department NoteTXT1.2.840.714586.1.13.104.2.7.2.7 55620|[id number] for patient qlef68688-2EtmyGPRGWYVLLWIUoaxwnxzt C-CDA narrative textUT50 Sherman [id number] VJAARHEOTDNXCPLQZIIV3572-96-54C86:04:1 51.2.840.612900.1.72.3.15|1.2.840.1143 50.1.13.104.2.7.2.727879_[id number] [facility] 2023-08-03 22:40:38 b/grCHpUNmibFZlosllsAdRig1rz54e42XeORS l1GIwUZOcMdFVSYYcaxaMw01Xj7698-37-21G8 2:40:38 Pt arrived via [facility] for back and R leg pain. Pt has hx of spinal mass and was supposed to have surgery last month but had insurance issues. Pt takes T3 at home for pain but states its not longer working. Pt states he still ambulates but "barely."Pt took regular tylenol today and a couple doses of BayerT, TH, S Dialysis 82417-7Psskvcjwh department Triage dukeDX5294-88-59G00:46:58[facility] Triage noteTXT1.2.840.533524.1.13.104.2.7.2.7 35909|[id number] for patient snsz90720-9Cervnsalx department NoteLNNARRATIVEFormatted C-CDA narrative [id number] D Roman RN[address]RaqoYn[id number] LSKVOVWUKANKAQBKXSAH2319-30-58C17:46:5 81.2.840.964876.1.72.3.15|1.2.840.1143 50.1.13.104.2.7.2.727879_[id number] Meghann Johnson RN [facility] 2023-08-03 22:37:00 PcUBKxaR9wBlNs98nX4W3M+MpGc+tbyMM9yYGl AUB5FJWO4W+FquAQKkX/CgT1U60993-36-23P0 2:37:00 [facility] Emergency Department NotePatient Name: Joss BritoDate of : 1980 42 year old maleTreatment Room: 8/DF7Fmvvlcl Record Number: [id number] Care Physician: Nathaniel MosesPatient Escorted by: Self [9]Mode of Arrival: EMS - [facility] [43]EMS Treatment Prior to ED Arrival:NET WASHER treatment: AnalgesicPTA treatment comments: Srinath 1 hr PTATravel and Exposure Screening:SymptomsDoes patient have any of these symptoms?: (not recorded)Exposure ScreeningHas patient had contact with someone with a communicable disease in the last month?: (not recorded)Diseases exposed to:: (not recorded)Is Patient ?: (not recorded)Exposure Date: (not recorded)Chief Complaint:Chief ComplaintPatient presents withBack PainHistory of Present Illness:Patient is a 42 year old male with a PMH of ESRD HLD TTS, HTN, T2DM, HLD, MRSA bacteremia 2/2 infected perm cath who presents for worsening back pain over the last month, right ankle pain and an abscess at the back of his head. He stated right ankle pain started 2 days ago and describes it as constant pressure pain. Patient denies trauma. He also reports abscess at the back of his head. Denies fever chills, nausea, vomiting. Patient has a L4 lesion impinging his nerve root. He was seen and evaluated 2 months ago. He was supposed to f/u on 06/16/2023 but did not. He reports back pain has worsened. Patient denies paresthesia, saddle anesthesia,urinary incontinence. Alert and oriented x 4. .History provided by: PatientLanguage sweat band separator used: NoBack PainAssociated symptoms: no chest pain, no fever and no headachesAbscessLocation: Head/neckHead/neck abscess location: ScalpAbscess quality: fluctuance, induration and painfulDuration: 3 daysProgression: WorseningPain details:Quality: ThrobbingSeverity: SevereTiming: ConstantProgression: WorseningChronicity: NewContext: diabetesRelieved by: NothingWorsened by: NothingIneffective treatments: None triedAssociated symptoms: no fever, no headaches, no nausea and no vomitingAnkle PainLocation: AnkleTime since incident: 3 daysInjury: noAnkle location: R anklePain details:Quality: Unable to specifyRadiates to: Does not radiateSeverity: SevereOnset quality: SuddenDuration: 3 daysTiming: ConstantProgression: WorseningChronicity: NewDislocation: noForeign body present: Unable to specifyTetanus status: UnknownPrior injury to area: NoRelieved by: NothingWorsened by: NothingIneffective treatments: None triedAssociated symptoms: back painAssociated symptoms: no feverPast Medical History/Immunizations:Past Medical History:Diagnosis DateDiabetes mellitusESRD on dialysisHypertensionOpen wound of heelLeftTetanus received in last 5 years: UnknownAllergies:AllergiesAllergen ReactionsIodine DiarrheaShellfish Derived DiarrheaPast Social History:Tobacco UseNever smoked or used smokeless tobacco.Passive Exposure: PastComments: Past secondhand exposure when a child, Grandmother smokedPast Surgical History:Past Surgical History:Procedure Laterality DateCENTRAL VENOUS ACCESS CATHETER PLACEMENT Right 02/17/2023Surgeon: Natalya Quiroz MD; [facility]ASCULAR LABReview of Systems:Review of SystemsConstitutional: Negative for appetite change and fever.Eyes: Negative.Respiratory: Negative for shortness of breath.Cardiovascular: Negative for chest pain and palpitations.Gastrointestinal: Negative for blood in stool, diarrhea, nausea and vomiting.Musculoskeletal: Positive for back pain and gait problem.Skin: Negative for color change and pallor.Neurological: Negative for dizziness and headaches.Physical Exam:ED Triage Vitals [08/03/23 2242]Weight 150 kg (330 lb 11 oz)Actual or estimated Estimated by patient/family reportHeight 1.753 m (5' 9")BP (!) 179/104Pulse 97Resp 12Temp 36.3 ?C (97.4 ?F)Temp source OralSpO2 99 %Measured on Room airPhysical ExamVitals and nursing note reviewed.Constitutional:Appearance: He is well-developed.HENT:Head: Normocephalic and atraumatic.Eyes:General:Right eye: No discharge.Conjunctiva/sclera: Conjunctivae normal.Pupils: Pupils are equal, round, and reactive to light.Neck:Trachea: No tracheal deviation.Cardiovascular:Rate and Rhythm: Normal rate and regular rhythm.Heart sounds: Normal heart sounds.Pulmonary:Effort: Pulmonary effort is normal. No respiratory distress.Breath sounds: Normal breath sounds. No wheezing.Chest:Chest wall: No tenderness.Abdominal:General: Bowel sounds are normal. There is no distension.Palpations: Abdomen is soft. There is no mass.Tenderness: There is no abdominal tenderness. There is no guarding or rebound.Musculoskeletal:General: No tenderness or deformity. Normal range of motion.Cervical back: Normal range of motion and neck supple.Skin:General: Skin is warm and dry.Coloration: Skin is not pale.Findings: No erythema or rash.Neurological:Mental Status: He is alert and oriented to person, place, and time.Cranial Nerves: No cranial nerve deficit.Radiology:CT LUMBAR SPINE WO CONTRASTPreliminary ResultCT LUMBAR SPINE WO CONTRASTHISTORY: Compression fracture, lumbarLow back pain, cancer suspectedTECHNIQUE: Contiguous thin section axial images were obtained of thelumbar spine. Sagittal and coronal reformatted images were generated.Images were reviewed in soft-tissue and bone detail.COMPARISON: CT L-spine on 05/17/2023. MR lumbar spine 05/18/2023.FINDINGS:For the purposes of this dictation, the last well-defined interspace iscalled L5-S1.There are 5 bou-pvr-ejdnjfm lumbar type vertebrae.There is normal lumbar lordosis.Interval increased size of expansile lytic lesion involving the L4/C0lcxmngisl bodies with development of suspected burst fracture and mildretropulsion.Visualized prevertebral soft tissues are normal.IMPRESSIONIncreased size of L4-L5 expansile lytic lesion with suspected L4 burstfracture and mild retropulsion (image 60 on series 8).The above findings were reported to and acknowledged by Dr. WENDY ROBLERO on 08/04/2023 at 12:07 AM, via telephone.Preliminary Report Dictated by Resident: Mukund DesaiXR ANKLE 3+ VW RIGHTPreliminary ResultEXAM:XR ANKLE 3+ VW RIGHTHISTORY:right ankle painCOMPARISON: NoneFINDINGS:Radiographs of the right ankle demonstrate no acute fracture ordislocation. The ankle mortise is preserved. Plantar calcanealenthesophyteformation is present. Diabetic type vascular calcifications are noted.IMPRESSIONNo acute fracture or dislocation.Preliminary Report Dictated by Resident: Mukund Hardy Results:Lab ResultsCBC WITH DIFF - AbnormalResult Value Ref RangeWBC 13.36 (*) 4.20 - 10.70 10*3/?LRBC 3.49 (*) 4.26 - 5.52 10*6/?LHGB 9.2 (*) 12.2 - 16.4 g/dLHCT 29.2 (*) 38.4 - 49.3 %MCV 83.7 81.7 - 95.6 fLMCH 26.4 26.1 - 32.7 pgMCHC 31.5 31.2 - 35.0 g/dLRDW-SD 46.2 38.5 - 51.6 fLRDW-CV 15.5 (*) 12.1 - 15.4 %PLT 467 (*) 150 - 328 10*3/?LMPV 9.2 (*) 9.8 - 13.0 fLNRBC/100 WBC 0.0 0.0 - 10.0 /100 WBCsNRBC x10^3 <0.01 10*3/?LGRAN MAT (NEUT) % 76.2 %IMM GRAN % 0.40 %LYMPH % 13.0 %MONO % 7.1 %EOS % 2.8 %BASO % 0.5 %GRAN MAT x10^3(ANC) 10.18 (*) 1.99 - 6.95 10*3/uLIMM GRAN x10^3 0.05 0.00 - 0.06 10*3/uLLYMPH x10^3 1.74 1.09 - 3.23 10*3/uLMONO x10^3 0.95 0.36 - 1.02 10*3/uLEOS x10^3 0.37 0.06 - 0.53 10*3/uLBASO x10^3 0.07 0.01 - 0.09 10*3/uLCOMP. METABOLIC PANEL (85664)EKG:If EKG completed, see Procedure Note.Orders and Treatments:Orders Placed This EncounterProceduresIncision and DrainageXR ANKLE 3+ VW RIGHTCT LUMBAR SPINE WO CONTRASTCbc with DiffComp. Metabolic Panel (30654)Orders Placed This EncounterMedicationsmorpHINE (4 mg/mL) injection 4 mgondansetron (ZOFRAN (PF)) injection 4 mgketorolac (TORADOL) injection 30 mgclindamycin in 5 % dextrose (CLEOCIN) 900 mg/50 mL IV piggyback RTU 900 mgmorpHINE (4 mg/mL) injection 4 mgondansetron (ZOFRAN (PF)) injection 4 mgFirst Provider Eval:ED EventsDate/Time Event User Oxugssrm49/29/24 0010 Medical Screening Begins WENDY SINGH --08/04/23 0010 First Provider Evaluation WENDY SINGH --ED COURSEED Course as of 08/04/23 0028Mon Aug [address] Anna neurosurgeon. He recommends patient transferred to [facility] in [place] for further care. Discussed plan of care with patient and he agrees with plan. [FI]0013 XR ANKLE 3+ VW RIGHTNo acute fracture or dislocation. [FI]0013 XR ANKLE 3+ VW RIGHT [FI]0013 CT LUMBAR SPINE WO CONTRASTIncreased size of L4-L5 expansile lytic lesion with suspected L4 burstfracture and mild retropulsion (image 60 on series 8).[FI]0009 WBC x10^3(!): 13.36Leukocytosis [FI]ED Course User Index[FI] FranciscoHyundebbiegualberto Vivas FNPDiagnosis/Impression as of 08/04/23 0028Lumbar painClosed burst fracture of lumbar vertebra, initial encounterSpinal cord massAcute right ankle painAbscess, scalpProcedures:ProceduresMDM:Medical Decision MakingWill admit for further evaluation, case discussed with doctor director of labor relations and pt accepted for admission. Labs ordered, reviewed, and interpreted by me.Pulse ox reviewed by me and interpreted as normal.Problems Addressed:Closed burst fracture of lumbar vertebra, initial encounter: acute illness or injurySpinal cord mass: acute illness or injury with systemic symptoms that poses a threat to life or bodily functionsAmount and/or Complexity of Data ReviewedLabs: ordered. Decision-making details documented in ED Course.Radiology: ordered. Decision-making details documented in ED Course.RiskPrescription drug management.Parenteral controlled substances.Flowsheet Documentation:Scoring Tools:No data recordedDisposition/Condition:ED DispositionNoneDischarge Medications:Patient's MedicationsSTART taking these medicationsNo medications on fileCONTINUE taking these medications which have NOT CHANGEDALLOPURINOL 100 MG TABLET Take 3 tablets by mouth in the morning.ATORVASTATIN 20 MG TABLET Take 1 tablet by mouth at bedtime.CALCITRIOL 0.25 MCG CAPSULE Take 1 capsule by mouth in the morning for 92 days.GABAPENTIN 100 MG CAPSULE Take 1 capsule by mouth at bedtime.MIDODRINE 5 MG TABLET Take 1 tablet by mouth in the morning and 1 tablet at noon and 1 tablet in the evening.SEVELAMER 800 MG TABLET Take 2 tablets by mouth in the morning and 2 tablets at noon and 2 tablets in the evening. Take with meals.TAMSULOSIN 0.4 MG 24 HR CAPSULE Take 1 capsule by mouth in the morning.START taking Modified Medications as PrescribedNo medications on fileSTOP taking these medicationsNo medications on fileFollow-up:Electronically signed by:Wendy Singh, [facility]08/04/23 0029Wendy Singh [facility]08/04/23 0029 ssociated attestation - Joi Cordova DO - 08/04/2023 2:04 AM CST I was personally available for consultation in the Emergency Department during this encounter and patient evaluation by Wendy Singh.22661-1Zniqdckll Emergency department WkqvDG2392439Cdvpqpck, Sandra J1.2.840.923126.1.13.104.2.7.2.451844B hfkbpudUjxqkrBCN9068-51-44V35:04:24[facility] Emergency department NoteTXT1.2.840.860944.1.13.104.2.7.2.7 03813|[id number] for patient dumc99814-5Oymkfgvhu department NoteLNNARRATIVEFormatted C-CDA narrative textUT[address] WctlPl[id number] HMJAKXBBCACLWELQERMD9507-67-58N19:04:2 41.2.840.504635.1.72.3.15|1.2.840.1143 50.1.13.104.2.7.2.727879_[id number] [facility] 2023-07-16 15:16:53 0iU3XWu0Ai3LSfvKTNRIl6qFXX7+x94cDOriIi nFhjJFb3cQqwb/JbYM3VjVghVR0572-64-17S3 5:16:53 Called patient lvm, to call and schedule appt, no answer. 44890-4Slxsgsuyq encounter OvzvDT3484-78-51O73:17:46Telephone encounter NoteTXT1.2.840.158878.1.13.104.2.7.2.7 05863|[id number] for patient gwoo66211-4SjsiEXWFHNKXZLWToszstwhf C-CDA narrative udka44626167Yxil [address] GuvgDjfapcsltDjjiclmhkZZJE6051820482YO MJHUPGFAJFMRRCVWVYZJ5987-81-90P41:17:4 61.2.840.728064.1.72.3.15|1.2.840.1143 50.1.13.104.2.7.2.727879_[id number] Nyasia Cordova [facility] 2023-07-14 10:54:22 Vgwj5+Fg65M9Uq/SVLrHTTi3yev+DAgGVMLbuY b4lXeB6Mtn2Z8/f//57pOo1Yif0297-71-14R7 0:54:22 Called pt no answer left voicemail in regards to scheduling a sooner appointment. 37032-5Pagkctepc encounter DlhnPZ6027-27-98L52:54:39Telephone encounter NoteTXT1.2.840.616330.1.13.104.2.7.2.7 54498|[id number] for patient ailc86497-3SvgqIQNMKAYQPFMCvlojknyn C-CDA narrative sjsg172972081Xfaptxu D [id number] ASNKOGVKTPSPALNEQOEB1635-05-21X64:54:3 91.2.840.001841.1.72.3.15|1.2.840.1143 50.1.13.104.2.7.2.727879_[id number] Ava Adan [facility] 2023-07-14 08:56:47 PXrcmOg+xm59NEDC/nwJQJ9ATOz4aU1gPnHOoS 1BcS/bFiUSWcrMecoIn1XMAeel2703-63-71T1 8:56:47 Attempted to contact PT. No answer. zr 30524-8Jcgqkbedm encounter BtvvZM6292-22-50E21:57:05Telephone encounter NoteTXT1.2.840.653452.1.13.104.2.7.2.7 07588|[id number] for patient tkgk46549-0NywqNIHFDWEIGPMApytdxico C-CDA narrative tugm991338842Fgqk N [id number] YMVJBUJQUIBVYUHWFJGJ8166-75-21B81:57:0 51.2.840.778391.1.72.3.15|1.2.840.1143 50.1.13.104.2.7.2.727879_[id number] Jerel Jenkins [facility] 2023-07-14 08:04:01 sYf5aHYX5N9h/OB0XlUEUK2KfWsFmCZ6CsufP0 fXebJCkWnbMvVm80rStqPKRGsv3584-00-14J4 8:04:01 Routing to [facility], please schedule with Dr. Fam this week. 53049-5Gilqsbhny encounter RdvrZK2883-17-91M84:04:26Telephone encounter NoteTXT1.2.840.501088.1.13.104.2.7.2.7 97839|[id number] for patient tbgk71218-7LgqnLIKEJJXTTEMQvxckiwds C-CDA narrative mecj697242604Lhuuxs M Serrano [address] UzmuOqzitxbjsIapivqxlwDJPJ3788910870LQ VJWIURLCOVBRJDDJGOBV8868-44-74N19:04:2 61.2.840.923993.1.72.3.15|1.2.840.1143 50.1.13.104.2.7.2.727879_[id number] Ronda Dudley [facility] 2023-07-12 15:06:59 Y3oLwHgCtl0kfCZ8lSahXO8YK/vDBq2XvGUJYi xVAypBZM5W5p8M9IpbnSmw6UsF4580-30-93Q8 5:06:59 Okay to add to schedule next week, thank you. 76867-7Vkgnxtdxt encounter XnfhZK8823-78-47B58:07:16Telephone encounter NoteTXT1.2.840.777227.1.13.104.2.7.2.7 80455|[id number] for patient xacs92831-4YtfiWDYGYEBZPIXQzlpdiewb C-CDA narrative textFM-FAMILY MEDICINE STAFFFM-FAMILY MEDICINE [address]TXTX[address]5577555US LNFNEOLNGLUVMGLRBIBD1391-10-85F36:07:1 61.2.840.162864.1.72.3.15|1.2.840.1143 50.1.13.104.2.7.2.727879_[id number] FM-FAMILY MEDICINE STAFF [facility] 2023-07-09 08:33:57 ttZOACJrTNUilNF7Xf3XgqQNqrcbw4/hZuLz9h 8pn/xu8J9v6BATtLWFgdYvtry06325-66-12F5 8:33:57 Pt scheduled appointment on August 07 next available. 11685-4Wsreevyox encounter LfxwXF1050-10-59Z34:35:14Telephone encounter NoteTXT1.2.840.689123.1.13.104.2.7.2.7 69681|[id number] for patient uzvu59754-3WlycGNDAQVVGLVYTccmylvlb C-CDA narrative bcgw603236464Pzzofqs D [address]TXTX[address]5577555US URCPUKHWLHIKECBPHBAN4565-85-78N54:35:1 41.2.840.819904.1.72.3.15|1.2.840.1143 50.1.13.104.2.7.2.727879_[id number] Ava Cosme [facility] 2023-07-09 07:31:55 GvYvO7saA3X97pDXgPcvu0IMxuvt8MnYvSQaqD MVgOZTKBIii01p6nlKS7P0UogK8217-73-85D5 7:31:55 Joss Brito is a 42 year old male is requesting a appointment soon to establish care with DR MOSES and also would like a referral for a neurologist at the office visit due to pt having a HMO insurance. Pt declined other providers. 80515-1Jcwdsrtoj encounter WtsmDK5816-33-32Z38:35:48Telephone encounter NoteTXT1.2.840.839515.1.13.104.2.7.2.7 68313|[id number] for patient ccbr99511-3GhhjOCWUPWCCTNHYgxjpcnmi C-CDA narrative rnwr14792604Pfxcr J [address] AfoeGnvdnmtfmJklvnhmjfPWNB0579020639BW KPVICLFJRPKIUANICRBS1064-44-79N77:35:4 81.2.840.453580.1.72.3.15|1.2.840.1143 50.1.13.104.2.7.2.727879_[id number] Courtney Roy [facility] 2023-02-19 09:51:08 jDgEY2g+xbLsRNFOwvoox4WT8BYAuGCWznguvJ 0SULssfzz2+bE27UdsgAR7OOKr3716-78-49R5 9:51:08 TRANSITIONAL CARE MANAGEMENT ASSESSMENT02/19/2023 Joss BritoUqfozf036069WNbfvgz Leon Wilson is a 42 year old Black or male was admitted on 02/11/23 to [facility] ICU. He was discharged on 02/18/23 with discharge disposition of HR- Routine Discharge.Admitting Physician: Paige Cote Diagnosis: Acute febrile illnessLinked Episodes Type: Episode: Status: Noted: Resolved: Last update: Updated by: TRANSITION OF CARE TCM Active 02/18/2023 02/19/2023 9:49 AM Arben Butler, RN Comments: TCM Mjx-luwy-pg-face outreach documentation:Discharge AssessmentChart Assessed: 02/19/23TCM Outreach Completed: 02/19/23Do you have a few minutes to speak with me about how you are doing at home?: Yes (Pt states he is doing ok.)Discharge InstructionsDo you understand your at-home instructions?: Yes (No questions at this time.)MedicationsHave you filled your prescriptions and do you have them in your home? : See comments (Has not picked up yet.)Do you know how to take your medications?: Yes (No questions.)Can you provide me with the names or descriptions of any ofnr-hvo-uddlqmk or supplements you are currently taking?: Patient declinedSuppliesDid you receive applicable home medical supplies/equipment?: N/AFollow Up AppointmentHas a follow up appointment been scheduled?: NoMay I assist with scheduling this appointment?: Patient has outside PCPDo you have any questions about your follow up appointments?: NoAre you able to get to your appointment? Who will be taking you?: Yes (self)Home Health AssistanceHas the home health nurse contacted you since you've been home?: N/ASurvey - RecognitionIs there anything you would like to share about your recent hospitalization, or anyone you would like to recognize?: NoDo you have any suggestions for improvement?: NoDo you have any other questions or concerns at this time?: NoFuture Appointments: Dialysis TTSYour COVID 19 test results were negative. You may return to work or school when you are feeling better and have not had a fever for 24 hours or more without taking fever reducing medications, such as acetaminophen or ibuprofen. 48502-4Ifuwwavmk encounter UkpfXO5466-38-92B70:57:46Telephone encounter NoteTXT1.2.840.574926.1.13.104.2.7.2.7 96878|[id number] for patient zfus71507-6PpgzIK877818004Kfejlrz A Gaudet RNUT[address]TXTX[address]5577555US KRYNNEQWHDLKPESWUDJE6679-78-15X75:57:4 61.2.840.700009.1.72.3.15|1.2.840.1143 50.1.13.104.2.7.2.727879_[id number] Arben Butler RN [facility] 2023-02-18 17:39:37 s6Ly0EW6qM7gskFI2iR/Idr2AE37QQTCR2FCiy wRrhqSDCtNFqzSPEqlNy5ZCn1p7548-56-99E0 7:39:37 Problem: Skin integrity Impaired (Risk or Actual)Goal: Wound healing02/18/20231738 by Estelle Bolden RNOutcome: Adequate for discharge02/18/20231738 by Estelle Bolden RNOutcome: Adequate for dischargeGoal: Prevention of new skin breakdown02/18/20231738 by Estelle Bolden RNOutcome: Adequate for discharge02/18/20231738 by Estelle Bolden RNOutcome: Adequate for discharge Problem: Discharge PlanningGoal: Adequate for discharge02/18/20231738 by Estelle Bolden RNOutcome: Adequate for discharge02/18/20231738 by Estelle Bolden RNOutcome: Adequate for dischargeGoal: Effective communication02/18/20231738 by Estelle Bolden RNOutcome: Adequate for discharge02/18/20231738 by Estelle Bolden RNOutcome: Adequate for discharge Problem: Infection RiskGoal: Absence of infection02/18/20231738 by Estelle Bolden RNOutcome: Adequate for discharge02/18/20231738 by Estelle Bolden RNOutcome: Adequate for discharge Problem: Falls, Risk ofGoal: Absence of falls02/18/20231738 by Estelle Bolden RNOutcome: Adequate for discharge02/18/20231738 by Estelle Bolden RNOutcome: Adequate for discharge Problem: Fluid Volume - ImbalancedGoal: Absence of signs and symptoms of imbalanced fluid volume02/18/20231738 by Estelle Bolden RNOutcome: Adequate for discharge02/18/20231738 by Estelle Bolden RNOutcome: Adequate for discharge Problem: Nutrition DeficitGoal: Adequate nutritional intake02/18/20231738 by Estelle Bolden RNOutcome: Adequate for discharge02/18/20231738 by Estelle Bolden RNOutcome: Adequate for discharge Problem: Procedure RoutineGoal: Absence of post-procedure complications02/18/20231738 by Estelle Bolden RNOutcome: Adequate for discharge02/18/20231738 by Estelle Bolden RNOutcome: Adequate for dischargeGoal: Knowledge of procedure02/18/20231738 by Estelle Bolden RNOutcome: Adequate for discharge02/18/20231738 by Estelle Bolden RNOutcome: Adequate for discharge Problem: Respiratory Function - ImpairedGoal: Able to cough effectively02/18/20231738 by Estelle Bolden RNOutcome: Adequate for discharge02/18/20231738 by Estelle Bolden RNOutcome: Adequate for dischargeGoal: Adequate oxygenation02/18/20231738 by Estelle Bolden RNOutcome: Adequate for discharge02/18/20231738 by Estelle Bolden RNOutcome: Adequate for dischargeGoal: Adequate work of breathing02/18/20231738 by Estelle Bolden RNOutcome: Adequate for discharge02/18/20231738 by Estelle Bolden RNOutcome: Adequate for discharge Problem: Venous Thromboembolism, (actual or risk of)Goal: Absence of venous thromboembolism (Risk)02/18/20231738 by Estelle Bolden RNOutjesus: Adequate for discharge02/18/20231738 by Estelle Bolden RNOutcome: Adequate for discharge 96534-0Qtbt of care midgTO9524-09-05I50:39:45Plan of care noteTXT1.2.840.372993.1.13.104.2.7.2.7 70073|[id number] for patient ylcs92774-5WlxjDK176503702Sxheanjp Postorino RNUT[address] OcutYxekqznfySudvaliznWHIM6003058875RK HDAAAYOEIHAFOQPHHFZD7812-13-49B04:39:4 51.2.840.992889.1.72.3.15|1.2.840.1143 50.1.13.104.2.7.2.727879_[id number] Estelle Bolden RN [facility] 2023-02-18 13:55:19 AUYTgEIDIm18JbqBOSMBpGlHAZfkUrJElydJjq vLo96mgTv5B7Zn5QQF4ih3kSgL2118-77-03A7 3:55:19 HEMODIALYSIS NURSING NOTENumber Hours: 3.0 hoursBath: 2K 3 Calcium (standard dialysate)Heparin: 1500 unitsAccess: right Catheter permanent subclavianNet UF: 1.5 LWeight: pre 146 kg, post 144.5 kg bed scalePost BP 162/102 Post Pulse 78Antibiotics/Medications Given: noneComplications/Events of Treatment: bp elevated throughout treatment. Goal increase to 1.5L. Dr Singh informed. Received order for UF goal 1.5L as tolerated. CAMP COORDINATOR aware. Patient denied complaints and tolerated treatment. Left patient in room without distress nor complications, bed in lowest position, side rails up x2, call mills within reach, and endorsed to primary RN. Verbal report to: SUSANA JohnsonMode of Transport Back to Unit: NA - patient done at bedside [facility] ICU 2104-07See hemodialysis flowsheet for details of treatment. 61398-1Fuhms ZfwcRQ4225-69-11L70:01:29Nurse NoteTXT1.2.840.555459.1.13.104.2.7.2.7 21923|[id number] for patient [id number] C Dierlam RN[id number] WOEITGMYDQKTXCKGKZGR0312-76-05U44:01:2 91.2.840.521413.1.72.3.15|1.2.840.1143 50.1.13.104.2.7.2.727879_[id number] Iona Larose RN [facility] 2023-02-18 13:54:50 x5xY3TMKEYvnbBD3j1ZFsHuDd3sXN9Rtbk3WvK LxmSexIuB209xIQjMyyH7PDtiE2861-72-59K5 3:54:50 Problem: Procedure RoutineGoal: Knowledge of procedureOutcome: Progressing as expectedNote: Hemodialysis Plan of care reviewed r/t treatment time, UF goal, and fluid restrictions. Also reviewed care of dialysis access during tx. Pt updated during tx as needed with teaching done. Also reviewed possible side effects of HD tx, such as s/s of hypotension, cramping (during tx and at rare times after tx), N/V, CP or any other concerns. Patient acknowledge understanding of treatment plan. 60334-4Msoc of care ypvoLU5926-31-68J67:54:53Plan of care noteTXT1.2.840.025162.1.13.104.2.7.2.7 29652|[id number] for patient cwqx24839-3MmxrYTFAEIIIFA[id number] XFKYWBBGGREDRZOMRGZR2342-58-77H79:54:5 31.2.840.905988.1.72.3.15|1.2.840.1143 50.1.13.104.2.7.2.727879_[id number] [facility] 2023-02-18 10:36:39 IHt5/jXCyN7sFk2pmaP6A18PRFzhIGgHMm0IiY n+2s/FRJ3XGnOg8pxJO8353fg27576-70-21T3 0:36:39Summary: Vancomycin Monitoring | Vancomycin Therapeutic Monitoring Note Pharmacy to monitor vancomycin dosing for patient Joss Brito, [id number].Primary Physician: Physician, if following: Dr. Merlos Indication for Vancomycin and Goal Trough: Bacteremia - PreHD Trough 15-20 mcg/ml Age: [age] year old Weight: Wt Readings from Last 1 Encounters: 02/15/23 144.5 kg (318 lb 13.8 oz) Duration of Antibiotics: 14 days from first negative blood culture (02/13/23 - 02/27/23) Concurrent Antibiotics:Cefepime 2gm IV (02/12/23 - )Microbiology: Blood culture (02/11/23): 2/2 sets MRSA Blood culture (02/13/23): no growth final Urine culture (02/14/23) no growth Catheter tip culture (02/12/23) >100,000 CFU MRSA Wound chest (02/12/23) 4+ MRSA Laboratory Data and Vancomycin Dosing:Date Scr (mg/dL) CrCL (mL/min) Dosing Regimen and frequency @ Times (mg) Vancomycin Level @ Time (mcg/mL) 02/11/23 - - 1000 mg @ 2232 - 02/12/23 8.82 15.3 1000 mg @ 1100 - 02/13/23 10.86 12.5 1000 mg @ 1703 Random 14.2 @1139 02/14/23 12.52 10.8 HD 18.6 @ 1408 02/15/23 9.4 14.4 HD 16.7 @ 0451 02/16/23 No dose - 02/17/23 10.15 13.3 Pt only received 30 mins of HD, post HD vanco dose held 18.5 @ 0408 02/18/23 10.89 12.4 HD 16.9 @ 0417 Assessment and Plan:Pre-HD level returned this morning @ 16.9 mcg/mL, which is therapeutic. Plan for patient to receive a post HD dose today of Vancomycin 1000 mg IV x 1 (~7 mg/kg).Pharmacy will continue to monitor patient and recommend dose adjustments as appropriate. Thank you for allowing pharmacy to participate in the care of this patient. Please feel free to contact us with any questions or concerns. ____Bibi Haddad PharmD, [facility] Tqryp: [phone]/ 10:48 33441-5Vqpsl KgyfJH7824-53-14K13:50:08Nurse NoteTXT1.2.840.502275.1.13.104.2.7.2.7 55494|[id number] for patient mexx38941-2OybzBD754752480Tbomnr Marie P Sled [id number] ALPBDHRFPUTLXLRSRHNR5005-72-30N86:50:0 81.2.840.061868.1.72.3.15|1.2.840.1143 50.1.13.104.2.7.2.727879_[id number] Bibi Haddad [facility] 2023-02-17 18:38:29 DNzCg0volruwXAjZSkBNLgQq2iljbYFo8QtkYS UqTeUI5MbPNTScNHh5HLWx6ygK1620-71-87J3 8:38:29 Problem: Skin integrity Impaired (Risk or Actual)Goal: Wound healingOutcome: Progressing as expectedGoal: Prevention of new skin breakdownOutcome: Progressing as expected Problem: Discharge PlanningGoal: Adequate for dischargeOutcome: Progressing as expectedGoal: Effective communicationOutcome: Progressing as expected Problem: Infection RiskGoal: Absence of infectionOutcome: Progressing as expected Problem: Falls, Risk ofGoal: Absence of fallsOutcome: Progressing as expected Problem: Fluid Volume - ImbalancedGoal: Absence of signs and symptoms of imbalanced fluid volumeOutcome: Progressing as expected Problem: Nutrition DeficitGoal: Adequate nutritional intakeOutcome: Progressing as expected Problem: Procedure RoutineGoal: Absence of post-procedure complicationsOutcome: Progressing as expectedGoal: Knowledge of procedureOutcome: Progressing as expected Problem: Respiratory Function - ImpairedGoal: Able to cough effectivelyOutcome: Progressing as expectedGoal: Adequate oxygenationOutcome: Progressing as expectedGoal: Adequate work of breathingOutcome: Progressing as expected 38521-3Dbdw of care rkytVN4213-02-01Y33:38:33Plan of care noteTXT1.2.840.672774.1.13.104.2.7.2.7 04427|[id number] for patient [id number] M Rivas RN[id number] BXBMIKFLVCEDWYZCWLSV4045-45-65N95:38:3 31.2.840.604302.1.72.3.15|1.2.840.1143 50.1.13.104.2.7.2.727879_[id number] Karina Zuniga RN [facility] 2023-02-17 12:14:16 zZKEKHSIokfuK3gtLqLwgUh6MUfH39b/5fEvl3 zzrairUVhbmbjdC6WFE+vbVvF82108-72-42H4 2:14:16 FULL OPERATIVE NOTE Date of Surgery: 02/17/2023reoperative diagnosis: Need for intravenous access for hemodialysis Postoperative diagnosis: Need for intravenous access for hemodialysis Procedure: Tunneled central line placement for hemodialysis with fluoroscopic guidance (23cm, 14.5 Fr) Surgeons: Faculty: Tania Ortadent: Brandt Alonzo MD Anesthesia: 2% lidocaine without epinephrine Complications: None Indications:Joss Brito is a 42 year old male who presented with an infected line for hemodialysis s/p removal and non tunneled central line placement; placement of a new tunneled hemodialysis line is indicated. Risks vs benefits discussed with the patient and he indicated he would like to proceed with the procedure. Procedure:Following a time out, the patient was placed in the supine position and MAC anesthesia was induced. A shoulder roll was placed. The patient's neck was prepped and draped in the standard sterile fashion. The previous dialysis catheter was prepped with CHG at the neck. I placed a hemostat near the skin entry and cut of the remaining side of the dialysis line. The neck was then draped fully. A wire was advanced through one of the openings of the prior lines and placement was confirmed with fluoroscopy. The existing central line was removed completely. Approximately 20 mL of 2% lidocaine without epinephrine was used to anesthetize the skin and subcutaneous tissue including the tunneled tract. The tunneler was used laterally to the previous tunnel site and the new catheter track was brought through the neck skin incision site. The tract was dilated and the introducer was placed without difficulty; the line was fed through the introducer taking care to avoid any kinking. Another fluoroscopic shot was taken to ensure a smooth course of the hemodialysis line and proper positioning was confirmed. All ports were aspirated of air and flushed with sterile normal saline, the lines randy back and flushed smoothly. The ports wree appropriately heparinized as marked by the frankfurter inspector recommendations. The line was secured to the patient's skin with 3-0 Nylon suture. 4-0 monocryl was used to close exposed skin at the distal and proximal aspects of the tunnel site. A sterile dressing placed with underlying biopatch. The patient tolerated the procedure well, there were no complications. A portable chest x-ray was ordered and will be checked prior to using the catheter.Dr. Quiroz was present for the entirety of the procedure.Specific postop instructionsFollow up chest XrayIf clear, line may be used for hemodialysis beginning at 1:30PM todayBrandt Alonzo MDGeneral SurgeryY-2I was present for and supervised the entire procedure(s). [place] [address]-8Sfxitcu Surgical operation obshIY9772-06-67G90:21:48Surgery Surgical operation noteTXT1.2.840.757810.1.13.104.2.7.2.7 00830|[id number] for patient lynv71064-3ClpxZKEZLPNXCN[address] NmowShvoj[id number] YMMQFTEJDNJFKKRHADXU8510-66-54Q12:21:4 81.2.840.865833.1.72.3.15|1.2.840.1143 50.1.13.104.2.7.2.727879_[id number] [facility] 2023-02-17 10:35:30 R3ldm40dIvHON1Vl7kHxlg6lijYAP5pWxcQis1 mCtyttmPqb8jJ8W/I66L05H9ZP9607-05-20T0 0:35:30 | Vancomycin Therapeutic Monitoring Note Pharmacy to monitor vancomycin dosing for patient Joss Brito, [id number].Primary Physician: Physician, if following: Dr. Merlos Indication for Vancomycin and Goal Trough: Bacteremia - Trough 12-17 mcg/ml Age: [age] year old Weight: Wt Readings from Last 1 Encounters: 02/15/23 144.5 kg (318 lb 13.8 oz) Duration of Antibiotics: Other: Concurrent Antibiotics:Cefepime 2gm IV (02/12/23 -)Microbiology: Blood culture (02/11/23): staphylococcus aureusBlood culture Aerobic (02/13/23): No growth at 72HBlood culture Anaerobic (02/13/23): No growth at 72HUrine culture- no aerobic growth 02/14/23 Laboratory Data and Vancomycin Dosing:Date Scr (mg/dL) CrCL (mL/min) Dosing Regimen and frequency @ Times (mg) Vancomycin Level @ Time (mcg/mL) 02/11/23 - - 1000 mg @2232 - 02/12/23 8.82 15.3 1000 mg @ 1100 - 02/13/23 10.86 12.5 1000 mg @ 1703 Random 14.2 @1139 02/14/23 12.52 10.8 HD (3hrs) 18.6 @ 1408 02/15/23 9.4 14.4 HD 16.7 @ 0451 02/16/23 No dose - 02/17/23 10.15 13.3 pt.only received 30 min of HD. Will hold post HD dose today 18.5@0408 Assessment and Plan:Discussed with Dr. Soliman- HD level returned 18.5Will hold post HD dose today and will order a random trough level tomorrow morning 02/18/23@0500 Patient only received 30 minutes of HD todayPharmacy will continue to monitor with patient's renal function. Thank you for allowing pharmacy to participate in the care of this patient. Please feel free to contact us with any questions or concerns. ____Kay Singh Sr.[facility] Department of PharmacyPhone: Catoxxuqpybztt signed by Kay [facility] at 02/17/2023 10:55 AM ITQ67161-7Rtyjg ZzgoVJ1609-07-46J60:55:40Nurse NoteTXT1.2.840.857132.1.13.104.2.7.2.7 26497|[id number] for patient tleq92991-8DbyfDL911445114Myuskqmf D Burridge [address] Jz[id number] CSTPADLNJYWHHMHIBOAW4570-51-05G06:55:4 01.2.840.558676.1.72.3.15|1.2.840.1143 50.1.13.104.2.7.2.727879_[id number] Kay Singh [facility] 2023-02-17 08:55:55 k2GBPU5P+t6dgIyWftZr0PMSyAWkwD7WksdYqF FmRUxxoEMmXf4YvUpBLodg/gNc1020-79-81H8 8:55:55 HEMODIALYSIS NURSING NOTENumber Hours: 3.0 hours (dialize for 30 mins only due to catheter issues)Bath: 2K 3 Calcium (standard dialysate)Heparin: 1500 unitsAccess: right Catheter temporary IJNet UF: 0 LWeight: pre 144.5 kg, post 144.5 kg bed scalePost BP 158/79 Post Pulse 80Antibiotics/Medications Given: noneComplications/Events of Treatment: R IJ not working well. BFR prescription not achieved. Dr Singh notified during rounds, received order if alarm is persistent to terminate treatment. Patient denied complaints. Left patient in room without distress nor complications, bed in lowest position, side rails up x2, call mills within reach, and endorsed to primary RN. Verbal report to: SUSANA CollinsMode of Transport Back to Unit: NA - patient done at bedside [facility] ICU 2104-07See hemodialysis flowsheet for details of treatment. 38480-8Tiqwb YepaEB4543-84-34A17:53:41Nurse NoteTXT1.2.840.555547.1.13.104.2.7.2.7 23589|[id number] for patient elzr87885-4JbnbXXYPECBKIT[address] Ra[id number] JXRQSTISVGIORCGCRQDI3426-06-31W29:53:4 11.2.840.300642.1.72.3.15|1.2.840.1143 50.1.13.104.2.7.2.727879_[id number] [facility] 2023-02-17 08:53:59 OlvRoBYorUkAsWOVgXvuB+DSHeHtUkqbLz86ES wjYqQ7dVDNcDfzSEBwa51wk7TV9468-11-06L0 8:53:59 Problem: Procedure RoutineGoal: Knowledge of procedureOutcome: Progressing as expectedNote: Hemodialysis Plan of care reviewed r/t treatment time, UF goal, and fluid restrictions. Also reviewed care of dialysis access during tx. Pt updated during tx as needed with teaching done. Also reviewed possible side effects of HD tx, such as s/s of hypotension, cramping (during tx and at rare times after tx), N/V, CP or any other concerns. Patient acknowledge understanding of treatment plan. 88998-8Ydzl of care irvoAW0031-64-32E44:54:02Plan of care noteTXT1.2.840.941577.1.13.104.2.7.2.7 81308|[id number] for patient cmyu11288-2OiacMPYKUDPMCM[address] PnqwUusjaeabeDkhubqwxyADCK9517488181TL OTAKQYEXCNMYYNQKSFMG0367-32-52U44:54:0 21.2.840.222277.1.72.3.15|1.2.840.1143 50.1.13.104.2.7.2.727879_[id number] [facility] 2023-02-16 13:51:23 RM8MuK8u+LjQd/piv4Azp1A0EGdopJ36khDUa9 yMtk0D3sgBk3kESqwIyDRlX2Oc3464-18-53E6 3:51:23Summary: Vancomycin Therapeutic Monitoring Note Vancomycin Therapeutic Monitoring Note Pharmacy to monitor vancomycin dosing for patient Joss Hernandez Silver, [id number].Primary Physician: Physician, if following: Dr. Merlos Indication for Vancomycin and Goal Trough: Bacteremia - Trough 12-17 mcg/ml Age: [age] year old Weight: Wt Readings from Last 1 Encounters: 02/15/23 144.5 kg (318 lb 13.8 oz) Duration of Antibiotics: Other: Concurrent Antibiotics:Cefepime 2gm IV (02/12/23 -)Microbiology: Blood culture (02/11/23): staphylococcus aureusBlood culture Aerobic (02/13/23): No growth at 72HBlood culture Anaerobic (02/13/23): No growth at 72H Laboratory Data and Vancomycin Dosing:Date Scr (mg/dL) CrCL (mL/min) Dosing Regimen and frequency @ Times (mg) Vancomycin Level @ Time (mcg/mL) 02/11/23 - - 1000 mg @2232 - 02/12/23 8.82 15.3 1000 mg @ 1100 - 02/13/23 10.86 12.5 1000 mg @ 1703 Random 14.2 @1139 02/14/23 12.52 10.8 HD (3hrs) 18.6 @ 1408 02/15/23 9.4 14.4 HD (3hrs) started 85776118ou IV @2029 16.7 @ 0451 02/16 8.7 15.5 - Assessment and Plan:Discussed with Dr. Valentin (>3hr) /Pre HD level returned 16.7 on 02/15/23, which is therapeutic. Vancomycin IV 1000mg (~6.9mg/kg) administered post HD on 02/15/23.HD scheduled for Friday (02/17/23) per note. Pre-HD vancomycin level scheduled on 02/17/23 @ 0400.Pharmacy will continue to monitor patient's kidney function and adjust dosing accordingly. Thank you for allowing pharmacy to participate in the care of this patient. Please feel free to contact us with any questions or concerns. ____Denilson Loza RPH, PharmDUTMB [facility] - Department of PharmacyPhone: Reswxlzlyuvtxi signed by Denilson Loza RPH at 02/16/2023 1:52 PM HQU52015-1Flrjs HcheOO4068-00-84E49:52:24Nurse NoteTXT1.2.840.303118.1.13.104.2.7.2.7 28086|[id number] for patient kirn54039-5PbmsGM813139986Hdff S See [address] BroiCxbnrkfdeDzatvhmwoYCXF9248787521IP PCXJRNZLJFXOOHVYOLVY4872-06-91R26:52:2 41.2.840.405681.1.72.3.15|1.2.840.1143 50.1.13.104.2.7.2.727879_[id number] Denilson Amin See [facility] 2023-02-16 11:03:48 gMHpvShucVIE6CIkwiKF+FXBeiSRZHeDrGBJ1P 6ZJZqAhNsYiomQGBZaagzMHmHB2666-70-27Z4 1:03:48 Problem: Skin integrity Impaired (Risk or Actual)Goal: Wound healingOutcome: Progressing as expectedGoal: Prevention of new skin breakdownOutcome: Progressing as expected Problem: Discharge PlanningGoal: Adequate for dischargeOutcome: Progressing as expectedGoal: Effective communicationOutcome: Progressing as expected Problem: Infection RiskGoal: Absence of infectionOutcome: Progressing as expected Problem: Falls, Risk ofGoal: Absence of fallsOutcome: Progressing as expected Problem: Fluid Volume - ImbalancedGoal: Absence of signs and symptoms of imbalanced fluid volumeOutcome: Progressing as expected Problem: Nutrition DeficitGoal: Adequate nutritional intakeOutcome: Progressing as expected Problem: Procedure RoutineGoal: Absence of post-procedure complicationsOutcome: Progressing as expectedGoal: Knowledge of procedureOutcome: Progressing as expected 61048-5Ngmi of care jrwkAL7316-22-22N26:03:57Plan of care noteTXT1.2.840.195653.1.13.104.2.7.2.7 02461|[id number] for patient jwgq99314-0DubaFA793318190Kppmmnpf Jackson RNUT[id number] GXNUQOXDYWYPACBXYLVW8407-40-72L24:03:5 71.2.840.371851.1.72.3.15|1.2.840.1143 50.1.13.104.2.7.2.727879_[id number] Rosanna Flores RN [facility] 2023-02-15 15:06:01 IW9+bkYNIREu57ULXuJOI3zDJ4nCds62NIVun/ c1OQpv6rRdS4hk+9xOR22pDP0F7812-65-39K8 5:06:01 HEMODIALYSIS NURSING NOTENumber Hours: 3.0 hoursBath: 3K 3 CalciumHeparin: 3000 unitsAccess: right Catheter temporary IJNet UF: 1.5 LWeight: pre 145.5 kg, post 144 kg bed scalePost BP 119/77 Post Pulse 90Antibiotics/Medications Given: noneComplications/Events of Treatment: R IJ not working well. Machine keeps on alarming. Lines reversed. Still not working. 10 mins after start of treatment. TMP high . Arterial pressure low. Blood returned. Treatment paused, system changed. Patient denied complaints and tolerated treatment. Left patient in room without distress nor complications, bed in lowest position, side rails up x2, call mills within reach, and endorsed to primary RN. Verbal report to: SUSANA MarteMode of Transport Back to Unit: NA - patient done at bedside [facility] ICU 2104-07See hemodialysis flowsheet for details of treatment. 09193-7Hkyac LfeiFJ6402-05-43H10:59:02Nurse NoteTXT1.2.840.359570.1.13.104.2.7.2.7 69868|[id number] for patient ovur26976-9QgggEJPWWEVUEC[id number] UVQTCGAPLKQPCWRYBILU8979-45-83Y90:59:0 21.2.840.461710.1.72.3.15|1.2.840.1143 50.1.13.104.2.7.2.727879_[id number] [facility] 2023-02-15 15:04:28 n6BcVeioR0zjc9dhmbLVXcM7UCHq6Jvmk/eE+Z IQ2xj9zI/plPxJu/vpvnEzBlog3897-37-07V9 5:04:28 Problem: Procedure RoutineGoal: Knowledge of procedureOutcome: Progressing as expectedNote: Hemodialysis Plan of care reviewed r/t treatment time, UF goal, and fluid restrictions. Also reviewed care of dialysis access during tx. Pt updated during tx as needed with teaching done. Also reviewed possible side effects of HD tx, such as s/s of hypotension, cramping (during tx and at rare times after tx), N/V, CP or any other concerns. Patient acknowledge understanding of treatment plan. 25893-2Rggj of care lvkwFB9581-10-75E73:04:38Plan of care noteTXT1.2.840.191566.1.13.104.2.7.2.7 82534|[id number] for patient hvxd69526-1KawfAYDGJMOIUR[id number] EYRXKCDGDOJTCPPIKYSN1357-69-14R31:04:3 81.2.840.327524.1.72.3.15|1.2.840.1143 50.1.13.104.2.7.2.727879_[id number] [facility] 2023-02-15 01:28:12 XzJPIjBiypC19QVrf+hhQJiRWrs2kExh3EQErt lh5lKf9+KMCqFy35bobGAtktHo6373-17-10N0 1:28:12 Problem: Skin integrity Impaired (Risk or Actual)Goal: Wound healingOutcome: Progressing as expectedGoal: Prevention of new skin breakdownOutcome: Progressing as expected Problem: Discharge PlanningGoal: Adequate for dischargeOutcome: Progressing as expectedGoal: Effective communicationOutcome: Progressing as expected Problem: Infection RiskGoal: Absence of infectionOutcome: Progressing as expected Problem: Falls, Risk ofGoal: Absence of fallsOutcome: Progressing as expected Problem: Nutrition DeficitGoal: Adequate nutritional intakeOutcome: Progressing as expected Problem: Procedure RoutineGoal: Absence of post-procedure complicationsOutcome: Progressing as expectedGoal: Knowledge of procedureOutcome: Progressing as expected 49024-7Iwcd of care ssxyAH4187-79-97C46:28:23Plan of care noteTXT1.2.840.032986.1.13.104.2.7.2.7 78336|[id number] for patient yvpa41510-2AowkCB138744985Dqbbdh Vera V, RN[id number] SHMYEHAFUQAWNLWVXFBR6050-66-84W71:28:2 31.2.840.326852.1.72.3.15|1.2.840.1143 50.1.13.104.2.7.2.727879_[id number] Mal Hamilton RN [facility] 2023-02-14 19:59:15 FZDcrS9WvuZpfo2VceJaNCcga8hYOdcmKlAsZq 8xBEna/VBFToM2sy3pf6sDz7SU2791-42-03A9 9:59:15 HEMODIALYSIS NURSING NOTENumber Hours: 3.0 hoursBath: 2K 3 Calcium (standard dialysate)Heparin: zeroAccess: right Catheter temporary IJNet UF: 1000 mLWeight: pre 145 kg, post 144 kgPost BP 134/83 Post Pulse 83Antibiotics/Medications Given: NoneComplications/Events of Treatment: Treatment well toleratedReport given to: SUSANA ResendezMode of Transport Back to Unit: NA - patient done at bedside [facility] 2104-07See hemodialysis flowsheet for details of treatment. 43799-9Loduj VajlYD7323-64-95V99:00:52Nurse NoteTXT1.2.840.027236.1.13.104.2.7.2.7 10855|[id number] for patient bikw35443-6XkniLW068655887Pfymglfx Abarquez RN[address]QhmjKadcsvbluHdhcktzdsRWJW4973315432PD ONVBHIVNRNRYMCZCEBNH4601-28-03R82:00:5 21.2.840.561107.1.72.3.15|1.2.840.1143 50.1.13.104.2.7.2.727879_[id number] Latisha Samuels RN [facility] 2023-02-14 16:48:01 NJ6Yy9RKx1zOip+cXS1cDh1PBJDpMDlfzgoDeh 47GJW67ROKxmm+DighXi2Gmghk7549-50-08S7 6:48:01 Problem: Procedure RoutineGoal: Absence of post-procedure complicationsOutcome: Progressing as expectedGoal: Knowledge of procedureOutcome: Progressing as expected Hemodialysis Plan of care reviewed r/t treatment time, UF goal, dry wgt and fluid restrictions. Also reviewed care of dialysis access during tx. Pt updated during tx as needed with teaching done. Also reviewed possible side effects of HD tx, such as s/s of hypotension, cramping (during tx and at rare times after tx), n/v, CP or any other concerns. Patient acknowledge understanding of treatment plan. 13184-9Jhoc of care npejHA6236-28-95I11:48:09Plan of care noteTXT1.2.840.930057.1.13.104.2.7.2.7 78139|[id number] for patient ifco69259-3TdehNRZFZIWLNF[id number] QFKZJKZUUWLLIVTLLHTM5674-94-29M17:48:0 91.2.840.424026.1.72.3.15|1.2.840.1143 50.1.13.104.2.7.2.727879_[id number] [facility] 2023-02-14 11:31:28 A7xV6/E+ZclZzkEX15TXVOiI7qtiD8LSqrGmiW EbYc9klp7Y3umFHhTo6ExMj9Kw7559-23-68T7 1:31:28 Problem: Skin integrity Impaired (Risk or Actual)Goal: Wound healingOutcome: Progressing as expectedGoal: Prevention of new skin breakdownOutcome: Progressing as expected Problem: Discharge PlanningGoal: Adequate for dischargeOutcome: Progressing as expectedGoal: Effective communicationOutcome: Progressing as expected Problem: Infection RiskGoal: Absence of infectionOutcome: Progressing as expected Problem: Falls, Risk ofGoal: Absence of fallsOutcome: Progressing as expected Problem: Fluid Volume - ImbalancedGoal: Absence of signs and symptoms of imbalanced fluid volumeOutcome: Progressing as expected Problem: Nutrition DeficitGoal: Adequate nutritional intakeOutcome: Progressing as expected 26878-4Ldvs of care jnlbGJ3633-18-84C76:31:31Plan of care noteTXT1.2.840.031958.1.13.104.2.7.2.7 68126|[id number] for patient hfqe65165-3WwktGLASVWHEBM[id number] MGOOXAUJKEHVGBXCTQBQ8127-99-34R31:31:3 11.2.840.928456.1.72.3.15|1.2.840.1143 50.1.13.104.2.7.2.727879_[id number] [facility] 2023-02-14 08:25:14 ZqhLa4XqTD8T2OwseikWkltYcCCW4Vby8B1yu2 1Mv9FTNOuSEvt6hQp8eK06cZ3l2905-18-71B4 8:25:14 Vancomycin Therapeutic Monitoring Note Pharmacy to monitor vancomycin dosing for patient Joss Brito, [id number].Primary Physician: Physician, if following: Dr. ARREGUIN Indication for Vancomycin and Goal Trough: Bacteremia - Trough 12-17 mcg/ml Age: [age] year old Weight: Wt Readings from Last 1 Encounters: 02/12/23 145 kg (319 lb 9.6 oz) Duration of Antibiotics: Other: Concurrent Antibiotics:N/AMicrobiology: Blood culture Aerobic in progressBlood culture Anaerobic in progress Laboratory Data and Vancomycin Dosing:Date Scr (mg/dL) CrCL (mL/min) Dosing Regimen and frequency @ Times (mg) Vancomycin Level @ Time (mcg/mL) 02/11/23 - - 1000 mg @2232 - 02/12/23 8.82 15.3 1000 mg @ 1100 - 02/13/23 10.86 12.5 1000 mg @ 1703 Random 14.2- 02/14/23 12.52 10.8 Refer to plan - - - - Assessment and Plan:Discussed with Dr. Cote02/13/23-Random level at 14.2 mcg/ml, subtherapeutic.02/13/23-vancomycin 1000 mg onceSchedule Pre HD level on 02/15/23 (Friday, , Friday).Will dose by level.Pharmacy will continue to monitor with patient's renal function. Thank you for allowing pharmacy to participate in the care of this patient. Please feel free to contact us with any questions or concerns. ____Andre Ruggiero RPH, PharmDUB [facility] Department of PharmacyPhone: [id number] signed by Andre Ruggiero [facility] at 02/14/2023 8:26 AM VLV19745-4Tnzra NdczNQ7810-98-98M19:26:15Nurse NoteTXT1.2.840.703805.1.13.104.2.7.2.7 69739|[id number] for patient [id number] Monik [id number] BUMUDBVLXDYFMETTMKCV5415-10-98K61:26:1 51.2.840.048900.1.72.3.15|1.2.840.1143 50.1.13.104.2.7.2.727879_[id number] Andre Ruggiero [facility] 2023-02-13 20:31:54 4HhEJ23o9HhdvUlRaS9+ivQ0tz02gPsmtbwg2n JWgQhNR+8jU+FSxrErGyRXX1ie9240-29-25U7 0:31:54 Problem: Skin integrity Impaired (Risk or Actual)Goal: Wound healingOutcome: Progressing as expectedGoal: Prevention of new skin breakdownOutcome: Progressing as expected Problem: Discharge PlanningGoal: Adequate for dischargeOutcome: Progressing as expectedGoal: Effective communicationOutcome: Progressing as expected Problem: Infection RiskGoal: Absence of infectionOutcome: Progressing as expected Problem: Falls, Risk ofGoal: Absence of fallsOutcome: Progressing as expected Problem: Fluid Volume - ImbalancedGoal: Absence of signs and symptoms of imbalanced fluid volumeOutcome: Progressing as expected Problem: Nutrition DeficitGoal: Adequate nutritional intakeOutcome: Progressing as expected 21698-4Ywal of care agnwFI2898-49-90Y39:31:58Plan of care noteTXT1.2.840.409671.1.13.104.2.7.2.7 89522|[id number] for patient [id number] S Leonard RN[id number] YXVWZPIIYULVDPWOXXXN3825-30-43P57:31:5 81.2.840.232602.1.72.3.15|1.2.840.1143 50.1.13.104.2.7.2.727879_[id number] Tanya Amin Leonard RN [facility] 2023-02-13 12:02:59 LN3Dkf4UD0BsYAsyfWbjfSsW5eA4DHKLl5A2EC PBG7nIlCwoTMNgPgp3e/WzV6NB2141-82-78W5 2:02:59 Vancomycin Therapeutic Monitoring Note Pharmacy to monitor vancomycin dosing for patient Joss David Brito, [id number].Primary Physician: Physician, if following: Dr. ARREGUIN Indication for Vancomycin and Goal Trough: Bacteremia - Trough 12-17 mcg/ml Age: [age] year old Weight: Wt Readings from Last 1 Encounters: 02/12/23 145 kg (319 lb 9.6 oz) Duration of Antibiotics: Other: Concurrent Antibiotics:N/AMicrobiology: Blood culture Aerobic in progressBlood culture Anaerobic in progress Laboratory Data and Vancomycin Dosing:Date Scr (mg/dL) CrCL (mL/min) Dosing Regimen and frequency @ Times (mg) Vancomycin Level @ Time (mcg/mL) 02/11/23 - - 1000 mg @2232 Once - 02/12/23 8.82 15.3 1000 mg @ 1100 Once - 02/13/23 10.86 12.5 1000 mg @ 1645 Random 14.2- - - - - Assessment and Plan:Discussed with Dr. CotePlan is to: Random level Pre HD at 14.2 mcg/ml, subtherapeutic.Ordered vancomycin 1000 mg 02/13/23 @ 1645.Schedule Pre HD level on 02/15/23 (Friday, , Friday).Will dose by level.Pharmacy will continue to monitor with patient's renal function. Thank you for allowing pharmacy to participate in the care of this patient. Please feel free to contact us with any questions or concerns. ____Andre Ruggiero RPH, PharmDUTMB [facility] Department of PharmacyPhone: [phone] OlbfVI4212-62-30M07:06:01Nurse NoteTXT1.2.840.789266.1.13.104.2.7.2.7 93768|[id number] for patient iqxv31708-6CzsoYYGPPYUWSJ[address] Hg[id number] CWXUGUTFFHDNJMYFWQTH9820-60-72R11:06:0 11.2.840.732279.1.72.3.15|1.2.840.1143 50.1.13.104.2.7.2.727879_[id number] [facility] 2023-02-13 07:18:43 3vJaBvYUlImF9dI/P3zxz9ovz8I6slYM8ieedt ultwTvfGmHJfUPp9qkcx0GsVOb6117-60-22U4 7:18:43 Problem: Skin integrity Impaired (Risk or Actual)Goal: Wound healingOutcome: Progressing as expectedGoal: Prevention of new skin breakdownOutcome: Progressing as expected Problem: Discharge PlanningGoal: Adequate for dischargeOutcome: Progressing as expectedGoal: Effective communicationOutcome: Progressing as expected Problem: Infection RiskGoal: Absence of infectionOutcome: Progressing as expected Problem: Falls, Risk ofGoal: Absence of fallsOutcome: Progressing as expected Problem: Fluid Volume - ImbalancedGoal: Absence of signs and symptoms of imbalanced fluid volumeOutcome: Progressing as expected Problem: Nutrition DeficitGoal: Adequate nutritional intakeOutcome: Progressing as expected 37311-5Khln of care vamtYM4699-50-49V33:18:47Plan of care noteTXT1.2.840.642834.1.13.104.2.7.2.7 01478|[id number] for patient [id number] G Cantu RN[id number] MNTDYBGJTHDERYEUIVNG8453-76-26E71:18:4 71.2.840.280809.1.72.3.15|1.2.840.1143 50.1.13.104.2.7.2.727879_[id number] Missy Posey RN [facility] 2023-02-12 19:34:40 8akS4m9OPi3uLSedn2OUOyWm9EUbv3IAmHf2bw HoPe4Dc2P3//QCfPpXh06eho/K5183-07-87P7 9:34:40 Problem: Skin integrity Impaired (Risk or Actual)Goal: Wound healing02/12/20231933 by Tanya Valle RNOutcome: Progressing as expected02/12/20231933 by Tanya Valle RNOutcome: Progressing as expectedGoal: Prevention of new skin breakdown02/12/20231933 by Tanya Valle RNOutcome: Progressing as expected02/12/20231933 by Tanya Valle RNOutcome: Progressing as expected Problem: Discharge PlanningGoal: Adequate for discharge02/12/20231933 by Tanya Valle RNOutcome: Progressing as expected02/12/20231933 by Tanya Valle RNOutcome: Progressing as expectedGoal: Effective communication02/12/20231933 by Tanya Valle RNOutcome: Progressing as expected02/12/20231933 by Tanya Valle RNOutcome: Progressing as expected Problem: Infection RiskGoal: Absence of infection02/12/20231933 by Tanya Valle RNOutcome: Progressing as expected02/12/20231933 by Tanya Valle RNOutcome: Progressing as expected Problem: Falls, Risk ofGoal: Absence of falls02/12/20231933 by Tanya Valle RNOutcome: Progressing as expected02/12/20231933 by Tanya Valle RNOutcome: Progressing as expected Problem: Fluid Volume - ImbalancedGoal: Absence of signs and symptoms of imbalanced fluid volume02/12/20231933 by Tanya Valle RNOutcome: Progressing as expected02/12/20231933 by Tanya Valle RNOutcome: Progressing as expected Problem: Nutrition DeficitGoal: Adequate nutritional intake02/12/20231933 by Tanya Valle RNOutcome: Progressing as expected02/12/20231933 by Tanya Valle RNOutcome: Progressing as expected 57657-5Qxpp of care ktuqRU9341-99-31L67:34:41Plan of care noteTXT1.2.840.987085.1.13.104.2.7.2.7 28400|[id number] for patient gylq15025-9SfhtFKQAFNBEBQ[address] Humd[id number] GVGPKTORDQLOWJTKOIXK3914-26-07Y74:34:4 11.2.840.833336.1.72.3.15|1.2.840.1143 50.1.13.104.2.7.2.727879_[id number] [facility] 2023-02-12 19:34:17 /+Lz9I2WG10vBRxJ7KKOaER/MjkIq0k908R129 WIhix1O/rOte0PHTknjvLRVR7k8098-42-47H7 9:34:17 Problem: Skin integrity Impaired (Risk or Actual)Goal: Wound healingOutcome: Progressing as expectedGoal: Prevention of new skin breakdownOutcome: Progressing as expected Problem: Discharge PlanningGoal: Adequate for dischargeOutcome: Progressing as expectedGoal: Effective communicationOutcome: Progressing as expected Problem: Infection RiskGoal: Absence of infectionOutcome: Progressing as expected Problem: Falls, Risk ofGoal: Absence of fallsOutcome: Progressing as expected Problem: Fluid Volume - ImbalancedGoal: Absence of signs and symptoms of imbalanced fluid volumeOutcome: Progressing as expected Problem: Nutrition DeficitGoal: Adequate nutritional intakeOutcome: Progressing as expected 34333-4Qhfc of care dwftLL1289-70-54S89:34:21Plan of care noteTXT1.2.840.696876.1.13.104.2.7.2.7 91670|[id number] for patient bcmu16506-3HhavPPMQBCZHTV[id number] MCZNMPALAOUHYMTICUKP9302-96-21W49:34:2 11.2.840.301286.1.72.3.15|1.2.840.1143 50.1.13.104.2.7.2.727879_[id number] [facility] 2023-02-12 10:52:24 kjuc5lYXZzuZdXW7PhMD2oAYijy7DEyPjnUDzb Y7rc1sepDXsi8lt4GDH2f386P/3426-54-32D8 0:52:24 Vancomycin Therapeutic Monitoring NotePharmacy to monitor vancomycin dosing for patient Joss David Brito, [id number].Primary Physician: Physician, if following: Dr. Dunn for Vancomycin and Goal Trough: Bacteremia - Trough 12-17 mcg/mlAge: 42 year old Weight: Wt Readings from Last 1 Encounters: 02/12/23 145 kg (319 lb 9.6 oz) Duration of Antibiotics: Other: Concurrent Antibiotics:N/AMicrobiology: Blood culture Aerobic in progressBlood culture Anaerobic in progressLaboratory Data and Vancomycin Dosing:Date Scr (mg/dL) CrCL (mL/min) Dosing Regimen and frequency @ Times (mg) Vancomycin Level @ Time (mcg/mL) 02/11/23 - - 1000 mg @2232 Once - 02/12/23 8.82 15.3 1000 mg @ 1100 Once - - - - - - Assessment and Plan:Discussed with Dr. SinghPlan is to: Received 1000 mg once 02/11/23 @ 2234. Spoke with Dr Singh agreed to give additional dose 1000 mg once today 02/12/23.Plan to draw next trough level on : Pre HD.Will dose by Level.Dialysis schedule (Friday, , Friday).Pharmacy will continue to monitor with patient's renal function.Thank you for allowing pharmacy to participate in the care of this patient. Please feel free to contact us with any questions or concerns. ____Andre Ruggiero RPH, PharmDUTMB [facility] - Department of PharmacyPhone: Yadqebszmbgqlt signed by Andre Ruggiero RPH at 02/12/2023 10:53 AM XGL20959-0Wmlnt JmmeFS7715-72-00S76:53:38Nurse NoteTXT1.2.840.707708.1.13.104.2.7.2.7 72615|[id number] for patient dtah91169-1PdgdORUJCAACRY[id number] UALSERVGBIUGEPWBFTJA8573-31-63R23:53:3 81.2.840.795413.1.72.3.15|1.2.840.1143 50.1.13.104.2.7.2.727879_[id number] [facility] 2023-02-12 07:36:42 MY+c4hJEZcDxYRYBr8hkjxOmlcbTkkaDYJS/annita lsWLI/Zh+3t3lLl/NBlXf2hcbE5304-63-26I2 7:36:42 Problem: Skin integrity Impaired (Risk or Actual)Goal: Wound healingOutcome: Progressing as expectedGoal: Prevention of new skin breakdownOutcome: Progressing as expected Problem: Discharge PlanningGoal: Adequate for dischargeOutcome: Progressing as expectedGoal: Effective communicationOutcome: Progressing as expected Problem: Infection RiskGoal: Absence of infectionOutcome: Progressing as expected Problem: Falls, Risk ofGoal: Absence of fallsOutcome: Progressing as expected Problem: Fluid Volume - ImbalancedGoal: Absence of signs and symptoms of imbalanced fluid volumeOutcome: Progressing as expected Problem: Nutrition DeficitGoal: Adequate nutritional intakeOutcome: Progressing as expected 27393-4Lzyh of care phesLJ7237-64-53P73:36:50Plan of care noteTXT1.2.840.743910.1.13.104.2.7.2.7 91635|[id number] for patient wjoi25761-5XxqbCKEBXTOTQY[id number] GVLEDHJBCPXJBQICKDMM0926-68-46X18:36:5 01.2.840.298192.1.72.3.15|1.2.840.1143 50.1.13.104.2.7.2.727879_[id number] [facility] 2023-02-12 01:08:02 egwjJqjV7JOKTY/YJREdZwUosfDy6IOZhHduAE ZGiDEvdUM6fgjLWDrtPH8NOjoA7589-60-30X7 1:08:02 Problem: Skin integrity Impaired (Risk or Actual)Goal: Wound healingOutcome: Progressing as expectedGoal: Prevention of new skin breakdownOutcome: Progressing as expected Problem: Discharge PlanningGoal: Adequate for dischargeOutcome: Progressing as expectedGoal: Effective communicationOutcome: Progressing as expected Problem: Infection RiskGoal: Absence of infectionOutcome: Progressing as expected Problem: Falls, Risk ofGoal: Absence of fallsOutcome: Progressing as expected Problem: Fluid Volume - ImbalancedGoal: Absence of signs and symptoms of imbalanced fluid volumeOutcome: Progressing as expected Problem: Nutrition DeficitGoal: Adequate nutritional intakeOutcome: Progressing as expected 32951-0Lcaj of care thmgDX4915-97-24Y66:08:05Plan of care noteTXT1.2.840.723581.1.13.104.2.7.2.7 82402|[id number] for patient jssy45583-0YgxiPVEHSUOPMO[address] Rleq[id number] HNKKURWUUEROMWKACVVZ0801-52-56F87:08:0 51.2.840.851060.1.72.3.15|1.2.840.1143 50.1.13.104.2.7.2.727879_[id number] [facility] 2023-02-11 23:44:36 AoqxhbER4z2gmHywDnKYcJzdODlh2QnrD8cuDa rOJrFY1d74blnwpV71rjuFhbkv0637-10-95G0 3:44:36 Patient admitted to [facility] for diagnosis of acute febrile illness, ESRD on dialysis.Patient agrees to admission, discussed plan of care with patient and family.Patient is awake, alert, oriented, resp reg unlabored, color appropriate for race, PIV intact No adverse reaction to medications administered while in EDBelongings with patient to unitReport to Tanya MEZA 53902-9Xvlqyhjxl department ScahHD6335-36-73D97:45:28[facility] NoteTXT1.2.840.432678.1.13.104.2.7.2.7 52108|[id number] for patient [id number] L Williams RN[id number] VLGJANKNCMZNYFGPLLJE5996-41-54B21:45:2 81.2.840.241315.1.72.3.15|1.2.840.1143 50.1.13.104.2.7.2.727879_[id number] Ronda Cordova RN [facility] 2023-02-11 23:43:00 LG4v6A1DNA26IbM+jajBqsa4SonfQzkDd6eVgE zpMlxE+5XmVvgYIiD6j3o/1ucm0897-86-40C4 3:43:00 Nurse Report Report given to Tanya MEZA. Chief complaint, assessment findings, infusion verify and orders reviewed. Plan of care discussed with patient and both nurses. Patient/family [place] [address]-1Oecxgzakp department DxgxEO3777-47-70Y01:43:20[facility] NoteTXT1.2.840.826605.1.13.104.2.7.2.7 78150|[id number] for patient pxqz83794-5CxfrPBANDCZREH[id number] MBIQYQNZZSSURFJALUCS8055-67-75F82:43:2 01.2.840.736290.1.72.3.15|1.2.840.1143 50.1.13.104.2.7.2.727879_[id number] [facility] 2023-02-11 22:14:57 zSRf0TJEp6S6aWQ7dxOGCLRlPDMwWuivY1M1e+ iIEoZJvrtkDb4cXSLzNCxRUhy55675-36-63W8 2:14:57 Pt refused urinary cath. Urinal at bedside, pt aware UA pending. 75326-8Yaumvahkv department JwonSM6785-86-63K31:15:21Emergency department NoteTXT1.2.840.705584.1.13.104.2.7.2.7 76795|[id number] for patient mbfe69217-8PqolMOKRYARMEL[id number] OCIZIUZVYUMSLVNRVACE6358-66-48D59:15:2 11.2.840.511537.1.72.3.15|1.2.840.1143 50.1.13.104.2.7.2.727879_[id number] [facility] 2023-02-11 20:39:15 XeGSryIMAalfyz1bbMwkm56LiXfBFpNPFUaXTt Wz2Kt1JHiaPb4yh1OjXynUl0w17845-65-55A6 0:39:15 CC: Pt called 911 for fever, vomiting, fatigue. He states at HD today the nurse noticed drainage from his right subclavian catheter but they dialyzed him anyway. Pt reports vomiting spit a couple times today and a little cough. Pt has a wound on the bottom of his right foot that he didn't f/u on. PMHx: ESRD- HD (T, TH, Sat), DM, foot wound, HTNAwake, alert, oriented, resp reg unlabored, skin warm, color appropriate for race, moves all ext without difficulty, generalized weakness, febrile at 104F 86568-5Dwygpivyc department Triage pjwnKK6882-91-90W82:42:54[facility] Triage noteTXT1.2.840.803686.1.13.104.2.7.2.7 15780|[id number] for patient nghg90656-7Zbofegpan department NoteLN[address] UasqFevfgnrmiUghvdfisfGLUV7835497683IP AIEHYKRWZOVYICBFESOL4040-39-11Y99:42:5 41.2.840.554024.1.72.3.15|1.2.840.1143 50.1.13.104.2.7.2.727879_[id number] [facility]
--- NOTE | 2023-10-07 13:13 | RAD REPORT ---
EXAM DESCRIPTION: CT - Abdomen Pelvis Wo Contrast - 10/07/2023 1:03 pm CLINICAL HISTORY: Abdominal pain. FLANK PAIN COMPARISON: No comparisons TECHNIQUE: CT imaging of the abdomen and pelvis was performed without contrast. Solid organ, bowel a nd vascular assessment is limited due to lack of IV and oral contrast. All CT scans are performed using dose optimization technique as appropriate and may include automated exposure control or mA/KV adjustment according to patient size. FINDINGS: The lower lung rodriguez are clear. The liver, spleen, pancreas, adrenal glands and kidneys are within normal limits for a limited non-co ntrast examination. No bowel obstruction, free air, free fluid or abscess. The appendix is normal. Destructive changes centered at the L4-5 disc space noted with sclerosis of the L4 and the L5 vertebr al body.This likely represents spondylodiscitis. Paraspinal soft tissues are mildly thickened. MRI annita mbar spine pending at the time of this dictation. IMPRESSION: Findings suspicious for spondylodiscitis at L4-5. A limited non-contrast examination was performed as detailed.
[2023-10-07 13:19] LABS: SARS-CoV-2 Antigen CONTROL BLUE LINE VIS/BG OK; SARS-CoV-2 Antigen Rapid Res Negative (Negative)
[2023-10-07] MEDS ORDERED: ACETAMINOPHEN 325 MG TABLET ONE (13:59)
[2023-10-07] MEDS ORDERED: VANCOMYCIN 1 GM/VIAL ONE (13:59)
[2023-10-07] MEDS ORDERED: CEFEPIME 2 GM VIAL ONE (14:00)
[2023-10-07] MEDS ORDERED: NA CHLORIDE 0.9% 250 ML ONE (14:00)
[2023-10-07] MEDS ORDERED: NA CHLORIDE 0.9% 100 ML ONE (14:00)
[2023-10-07] MEDS ORDERED: NA CHLORIDE 0.9% 500 ML ONE (14:00)
--- NOTE | 2023-10-07 14:02 | RAD REPORT ---
EXAM DESCRIPTION: MRI - Spine Lumbar W/Wo Cont- 10/07/2023 1:47 pm CLINICAL HISTORY: possible osteomyelitis Pain, fever, radiculopathy COMPARISON: No comparisons FINDINGS: Vertebral body heights are within normal limits. No acute fracture seen. The conus medullaris terminates at a normal level. No thickening of the cauda equina or clumping of n erve roots seen. L1-2 level: No significant findings. L2-3 level: No significant findings. L3-4 level: No significant findings. L4-5 level: Significant elevated edema signal involving the L4-5 disc as well as the adjacent inferio r L4 and superior L5 elbow endplates. There is posterior disc bulging present resulting in mild canal narrowing attenuation of the lateral recesses. Iplq-pw-xvpbmvqa narrowing both exit foramina also se en. Post-contrast sequence demonstrates significant abnormal enhancement involving the disc at this l evel and extending into both adjacent vertebra. Enhancing tissue is seen anterior epidural space at t his level without well-formed abscess seen at this time. L5-S1 level: Broad-based posterior disc bulge with small posterior annular fissure. Mild facet hypert rophy. Findings result in moderate central canal narrowing. Both exit foramina appear narrowed. IMPRESSION: Moderately severe spondylodiscitis at L4-5 is present. This does not result in significa nt canal stenosis. There is enhancing anterior epidural tissue spanning the L4-5 level without locali zed epidural abscess collection seen.
[2023-10-07 14:39] LABS: Absolute Basophils 0.1 K/uL (0-0.5); Absolute Lymphocytes (CBC) 0.7 K/uL (0.7-4.9); Absolute Monocytes 0.6 K/uL (0.1-1.3); Absolute Neutrophil 11.2 K/uL (1.8-8.0); Eosinophils % 0.2 % (0-4.4); Hematocrit 33.1 % (39.6-49.0); Hemoglobin 10.6 g/dL (13.6-17.9); Lymphocytes % 5.3 % (15.3-44.8); MCH 25.4 pg (27.0-35.0); MCHC 31.9 g/dL (32.0-36.0); MCV 79.4 fL (80-100); MPV 7.2 fL (7.6-11.3); Monocytes % 4.5 % (3.3-12.3); Platelets 537 thou/uL (152-406); RBC Red Blood Cell Count 4.16 M/uL (4.33-5.43); Red Cell Distribution Width 17.8 % (12.1-15.2)
[2023-10-07 14:47] LABS: PTT, Activated Partial Thromb 32.9 SECONDS (24.3-36.9); Protime INR 1.38
[2023-10-07 15:20] LABS: AST/SGOT 25 U/L (15-37); Albumin 2.9 g/dL (3.4-5.0); Albumin/Globulin Ratio 0.5 (1.1-1.8); Alkaline Phosphatase 102 U/L (45-117); Anion Gap 11.1 mEq/L (5.0-15.0); BUN Blood Urea Nitrogen 17 mg/dL (7-18); Bicarbonate 24 mEq/L (21-32); Bilirubin Total 0.3 mg/dL (0.2-1.0); Glomerular Filtration Rate 12 ml/min (=/>90); Glucose Level 95 mg/dL (74-106); Potassium 3.1 mEq/L (3.5-5.1); Protein, Total 8.9 g/dL (6.4-8.2); Sodium Level 135 mEq/L (136-145)
[2023-10-07 15:22] LABS: ALT/SGPT < 10 U/L (16-61)
--- NOTE | 2023-10-07 15:28 | EDPHYS ---
Physician Documentation [facility] Name: Joss Sheppard Age: 42 yrs Sex: Male : 1980 Arrival Date: 10/07/2023 Time: 12:09 Bed 19 Private MD: ED Physician Eduardo Morse HPI: 10/06 12:53 This 42 yrs old Black Male presents to ER via EMS with complaints of Fever, Back Pain. ec2 12:53 arrives today for evaluation of low back pain and fever. Patient is ESRD, dialysis ec2 dependent. Patient complaining of fever. Complaining of low back pain as well has had outpatient MRI that showed possible osteomyelitis. Patient reports decreased urine output as well. Reports no cough or cold symptoms, no difficulty breathing . Historical: - Allergies: 12:21 Iodine; me1 - PMHx: 12:21 Diabetes - IDDM; Hypertension; End stage renal disease; me1 - Immunization history:: Adult Immunizations up to date. - Infectious Disease History:: Denies. - Social history:: Smoking status: Patient denies any tobacco usage or history of. ROS: 12:53 Constitutional: as per hpi ec2 Exam: 12:53 Constitutional: GEN: NAD Head: atraumatic Eyes: EOMI Ears: External ears are ec2 normal. CV: regular rate LUNGS: no respiratory distress ABD: non-distended, soft, nontender, no guarding, not rigid SKIN: no evidence of rashes MSK: no evidence of trauma, L-spine TTP, no deformities or crepitus appreciated. NEURO: moves all extremities equally Vital Signs: 12:17 BP 93 / 65; Pulse 124; Resp 18; Temp 101.4(O); Pulse Ox 96% on R/A; Weight 149.69 kg; me1 Height 5 ft. 9 in. ; Pain 7/10; 14:26 BP 106 / 74; Pulse 108; Resp 18; Pulse Ox 99% on R/A; me1 15:00 BP 122 / 79; Pulse 104; Resp 16; Pulse Ox 97% ; me1 16:00 BP 127 / 78; Pulse 101; Resp 19; Pulse Ox 97% on R/A; me1 18:10 BP 122 / 80; Pulse 101; Resp 18; Temp 100.4(O); Pulse Ox 99% on R/A; rs5 12:17 Body Mass Index 48.73 (149.69 kg, 175.26 cm) me1 12:17 Pain Scale: Adult me1 MDM: 12:49 Patient medically screened. ec2 12:53 Data reviewed: vital signs. ED course: Patient arrives today for right low back pain. ec2 Examination remarkable for tachycardic individual was subjectively febrile. Will obtain a septic evaluation, obtain MRI of the L-spine, obtain CT imaging as well.. 13:57 ED course: Patient with negative COVID testing. CT on pelvis shows discitis at L4 and ec2 L5. Pending MRI. . 14:31 ED course: EKG independently reviewed and interpreted by me, shows sinus tachycardia, ec2 rate 119, no acute ST segment elevations, nonconcerning intervals.. 15:51 ED course: Given patient's discitis noticed on MRI, will transfer to neurosurgical ec2 capable facility, no emergent neurosurgical intervention needed at this time however could potentially worsen and require intervention.. 16:28 ED course: I discussed case with neurology at [facility] who agrees I will ec2 manage the patient. Pending hospitalist discussion.. 10/06 12:43 Order name: Blood Culture Adult (2) ec2 10/06 12:43 Order name: CBC with Diff; Complete Time: 14:44 ec2 10/06 12:43 Order name: CMP; Complete Time: 15:27 ec2 10/06 12:43 Order name: Lactate w/ 2H reflex if indic.; Complete Time: 15:08 ec2 10/06 12:43 Order name: Protime (+inr); Complete Time: 15:08 ec2 10/06 12:43 Order name: Ptt, Activated; Complete Time: 15:08 ec2 10/06 12:49 Order name: SARS RAPID; Complete Time: 13:56 ec2 10/06 12:49 Order name: Influenza Screen (a \T\ B) ec2 10/06 14:24 Order name: CRP; Complete Time: 15:08 ec2 10/06 12:49 Order name: CT Abd/Pelvis - Without Contrast; Complete Time: 13:56 ec2 10/06 13:11 Order name: Spine Lumbar W/Wo Cont; Complete Time: 14:07 EDMS 10/06 12:43 Order name: Accucheck; Complete Time: 14:30 ec2 10/06 12:43 Order name: Cardiac monitoring; Complete Time: 14:30 ec2 10/06 12:43 Order name: EKG - Nurse/Tech; Complete Time: 14:30 ec2 10/06 12:43 Order name: IV Saline Lock - Large Bore; Complete Time: 14:30 ec2 10/06 12:43 Order name: Labs collected and sent; Complete Time: 14:30 ec2 10/06 12:43 Order name: O2 Per Protocol; Complete Time: 13:04 ec2 10/06 12:43 Order name: O2 Sat Monitoring; Complete Time: 13:04 ec2 10/06 12:43 Order name: Vital Signs; Complete Time: 13:04 ec2 Administered Medications: 14:14 Drug: Acetaminophen PO 325 mg PO once Route: PO; me1 14:33 Follow up: Response: No adverse reaction me1 14:30 Drug: NS 0.9% IV 500 ml IV at bolus once Route: IV; Rate: bolus; Site: left forearm; me1 15:06 Follow up: Response: No adverse reaction; IV Status: Completed infusion; IV Intake: me1 500ml 14:45 Drug: Cefepime IVPB 2 grams IVPB at 200 ml/hr once over 30 mins; (mix in NS 100 mL) al1 Route: IVPB; Rate: 200 ml/hr; Infused Over: 30 mins; Site: left forearm; 15:06 Follow up: Response: No adverse reaction; IV Status: Completed infusion; IV Intake: me1 100ml 15:06 Drug: vancoMYCIN IVPB 1 grams IVPB once over 2 hrs Route: IVPB; Infused Over: 2 hrs; me1 Site: left forearm; 15:30 Follow up: Response: No adverse reaction rs5 19:20 Drug: morphine IVP or IV 4 mg IVP once over 4 mins Route: IVP; Infused Over: 4 mins; rs5 Site: left hand; 19:20 Drug: Ondansetron IVP 4 mg IVP once; over 2 minutes Route: IVP; Site: left hand; rs5 Disposition Summary: 10/07/23 15:27 Transfer Ordered Notes: Transfer Location: Other Acute Care Facility ec2 Reason: Higher level of care ec2 Condition: Stable ec2 Problem: new ec2 Symptoms: have improved ec2 Accepting Physician: transferring doc(10/07/23 19:22) Diagnosis - Discitis, unspecified, lumbar region ec2 Forms: - Medication Reconciliation Form ec2 - SBAR form ec2 Signatures: Dispatcher [employer] Joyce Anton, RN SUSANA iw Hima Osman MD MD rt William Teran, RN RN rs5 Marva Craig, SUSANA RN me1 Eduardo Morse MD MD ec2 Corrections: (The following items were deleted from the chart) 12:44 12:44 BLOOD CULTURE*+BA.LAB.BRZ ordered. EDMS EDMS 12:44 12:44 CBC+H.LAB.BRZ ordered. EDMS EDMS 12:44 12:44 COMPREHENSIVE METABOLIC PANEL+C.LAB.BRZ ordered. EDMS EDMS 12:44 12:44 LACTATE+C.LAB.BRZ ordered. EDMS EDMS 12:44 12:44 PROTIME (+INR)+COAG.LAB.BRZ ordered. EDMS EDMS 12:44 12:44 PTT, ACTIVATED+COAG.LAB.BRZ ordered. EDMS EDMS 12:44 12:44 Urinalysis+U.LAB.BRZ ordered. EDMS EDMS 13:05 12:54 Spine Lumbar W/Wo Cont ordered. EDMS EDMS 13:11 13:05 Lumbar Spine Wo Con ordered. EDMS EDMS 14:25 14:25 C-REACTIVE PROTEIN+C.LAB.BRZ ordered. EDMS EDMS 19:22 15:27 transferring doc ec2 iw
--- NOTE | 2023-10-07 15:28 | ER ---
Nurse's Notes [facility] Name: Joss Sheppard Age: 42 yrs Sex: Male : 1980 Arrival Date: 10/07/2023 Time: 12:09 Bed 19 Private MD: Diagnosis: Discitis, unspecified, lumbar region Presentation: 10/06 12:17 Chief complaint: EMS states: toned out to [facility] for fever and back me1 pain. 3700 ml taken off during dialysis today. Tylenol 650 mg given by dialysis clinic district captain of EMS. Coronavirus screen: Vaccine status: Patient reports being unvaccinated. Ebola Screen: No symptoms or risks identified at this time. Initial Sepsis Screen: Does the patient meet any 2 criteria? No. Patient's initial sepsis screen is negative. Does the patient have a suspected source of infection? No. Patient's initial sepsis screen is negative. Risk Assessment: Do you want to hurt yourself or someone else? Patient reports no desire to harm self or others. Onset of symptoms was October 07, 2023. 12:17 Method Of Arrival: EMS: [facility] me1 12:17 Acuity: BG 3 me1 Triage Assessment: 12:21 General: Appears uncomfortable, obese, well developed, Behavior is calm, cooperative, me1 appropriate for age, Reports fever and back pain. Denies voiding x 2 days- is normally oliguric. 3700 ml taken off in dialysis today. Pain: Complains of pain in right low back Pain does not radiate. Pain currently is 7 out of 10 on a pain scale. Quality of pain is described as sharp, Pain began Is continuous. Neuro: Level of Consciousness is awake, alert, obeys commands, Oriented to person, place, time, situation, Appropriate for age. Cardiovascular: Capillary refill < 3 seconds Patient's skin is warm and dry. Respiratory: Airway is patent Respiratory effort is even, unlabored, Respiratory pattern is regular, symmetrical. GI: No signs and/or symptoms were reported involving the gastrointestinal system. : Reports not voiding x 2 days. Baseline is oliguric. 3700 ml taken off in dialysis today. Derm: Skin is intact, is healthy with good turgor, Skin is pink, warm \T\ dry. Musculoskeletal: Capillary refill < 3 seconds, Reports pain in right low back. Historical: - Allergies: 12:21 Iodine; me1 - PMHx: 12:21 Diabetes - IDDM; Hypertension; End stage renal disease; me1 - Immunization history:: Adult Immunizations up to date. - Infectious Disease History:: Denies. - Social history:: Smoking status: Patient denies any tobacco usage or history of. Screenin:26 [facility] ED Fall Risk Assessment (Adult) History of falling in the last 3 months, me1 including since admission No falls in past 3 months (0 pts) Confusion or Disorientation No (0 pts) Intoxicated or Sedated No (0 pts) Impaired Gait No (0 pts) Mobility Assist Device Used No (0 pt) Altered Elimination No (0 pt) Score/Fall Risk Level 0 - 2 = Low Risk Maintained a safe environment, Provided non-skid footwear, Hourly rounding (assess needs \T\ fall precautionary measures) done. Abuse screen: Denies threats or abuse. Nutritional screening: No deficits noted. Tuberculosis screening: No symptoms or risk factors identified. Assessment: 12:26 General: See triage assessment. . me1 13:31 General: Appears in no apparent distress. uncomfortable, Behavior is calm, cooperative. rs5 Pain: Complains of pain in back Pain currently is 3 out of 10 on a pain scale. Quality of pain is described as aching, Is continuous. Neuro: Level of Consciousness is awake, alert, obeys commands, Oriented to person, place, time, situation. Cardiovascular: Patient's skin is warm and dry. Rhythm is sinus tachycardia. Respiratory: Airway is patent Respiratory effort is even, unlabored, Respiratory pattern is regular, symmetrical. GI: Abdomen is round non-distended, obese, Abd is soft and non tender X 4 quads. : No signs and/or symptoms were reported regarding the genitourinary system. EENT: No signs and/or symptoms were reported regarding the EENT system. Derm: Skin is intact, Skin is dry, Skin is normal, Skin temperature is warm. Musculoskeletal: Circulation, motion, and sensation intact. 14:40 Reassessment: No changes from previously documented assessment. rs5 15:55 Reassessment: Patient and/or family updated on plan of care and expected duration. Pain rs5 level reassessed. Patient is alert, oriented x 3, equal unlabored respirations, skin warm/dry/pink. 17:02 Reassessment: No changes from previously documented assessment. rs5 18:08 Reassessment: in bed eyes closed, respirations even and unlabored, normal sinus rhythm rs5 noted on monitor, side rails up x2 bed locked and in lowest position. Vital Signs: 12:17 BP 93 / 65; Pulse 124; Resp 18; Temp 101.4(O); Pulse Ox 96% on R/A; Weight 149.69 kg; me1 Height 5 ft. 9 in. ; Pain 7/10; 14:26 BP 106 / 74; Pulse 108; Resp 18; Pulse Ox 99% on R/A; me1 15:00 BP 122 / 79; Pulse 104; Resp 16; Pulse Ox 97% ; me1 16:00 BP 127 / 78; Pulse 101; Resp 19; Pulse Ox 97% on R/A; me1 18:10 BP 122 / 80; Pulse 101; Resp 18; Temp 100.4(O); Pulse Ox 99% on R/A; rs5 12:17 Body Mass Index 48.73 (149.69 kg, 175.26 cm) me1 12:17 Pain Scale: Adult ms1 ED Course: 12:15 Patient arrived in ED. me1 12:15 Eduardo Morse MD is Attending Physician. ec2 12:21 Triage completed. me1 12:21 Arm band placed on Patient placed in an exam room. me1 12:26 Patient has correct armband on for positive identification. Bed in low position. Call ms1 light in reach. Side rails up X 1. Provided Education on: POC. Verbalized understanding. . 12:26 No provider procedures requiring assistance completed. me1 13:01 Marva Craig, RN is Primary Nurse. me1 13:01 Client placed on continuous cardiac and pulse oximetry monitoring. NIBP monitoring ms1 applied. Pulse ox on. NIBP on. 13:01 SARS RAPID Sent. me1 13:01 Influenza Screen (a \T\ B) Sent. me1 13:01 COVID swab sent to lab. Flu and/or RSV swab sent to lab. me1 13:03 CT Abd/Pelvis - Without Contrast In Process Unspecified. EDMS 13:03 Patient moved to MRI. me1 13:47 Spine Lumbar W/Wo Cont In Process Unspecified. EDMS 14:30 Initial lab(s) drawn, by me, sent to lab. First set of blood cultures drawn. bc6 14:32 Inserted saline lock: 22 gauge in left forearm, using aseptic technique. Blood bc6 collected. 14:45 Second set of blood cultures drawn by ED staff. me1 15:35 attempted to initiated transfer to [facility], transfer center did not answer, phone bd rang for 3 mins then hung up. 15:36 attempted to initiated transfer to [facility] a second time. bd 18:20 pt accepted in transfer to [facility] rm [id number] evans admin approval given by gregorio Brown RN. Administered Medications: 14:14 Drug: Acetaminophen PO 325 mg PO once Route: PO; me1 14:33 Follow up: Response: No adverse reaction me1 14:30 Drug: NS 0.9% IV 500 ml IV at bolus once Route: IV; Rate: bolus; Site: left forearm; me1 15:06 Follow up: Response: No adverse reaction; IV Status: Completed infusion; IV Intake: me1 500ml 14:45 Drug: Cefepime IVPB 2 grams IVPB at 200 ml/hr once over 30 mins; (mix in NS 100 mL) me1 Route: IVPB; Rate: 200 ml/hr; Infused Over: 30 mins; Site: left forearm; 15:06 Follow up: Response: No adverse reaction; IV Status: Completed infusion; IV Intake: me1 100ml 15:06 Drug: vancoMYCIN IVPB 1 grams IVPB once over 2 hrs Route: IVPB; Infused Over: 2 hrs; me1 Site: left forearm; 15:30 Follow up: Response: No adverse reaction rs5 19:20 Drug: morphine IVP or IV 4 mg IVP once over 4 mins Route: IVP; Infused Over: 4 mins; rs5 Site: left hand; 19:20 Drug: Ondansetron IVP 4 mg IVP once; over 2 minutes Route: IVP; Site: left hand; rs5 Medication: 12:26 VIS not applicable for this client. me1 Intake: 15:06 IV: 100ml; Total: 100ml. me1 15:06 IV: 500ml; Total: 600ml. me1 Outcome: 15:27 ER care complete, transfer ordered by . ec2 19:22 Patient left the ED. iw Signatures: Dispatcher [employer] EDMS Jesusita Velasco Irene, RN RN William Teran RN RN rs5 Barby Venegas 6 Marva Craig RN RN me1 Eduardo Morse MD MD ec2 Corrections: (The following items were deleted from the chart) 14:31 14:30 NS 0.9% IV 500 ml IV at bolus in right forearm ms1 [facility] 14:39 14:30 Cefepime IVPB 2 grams IVPB at 200 ml/hr in left forearm over 30 mins ms1 ms1 18:07 12:26 Neuro: Level of Consciousness is awake, alert, obeys commands, Oriented to rs5 person, place, time, situation, Appropriate for age me1
[2023-10-07] MEDS ORDERED: ONDANSETRON 4 MG/2 ML VIAL ONE (19:18)
[2023-10-07] MEDS ORDERED: MORPHINE 4 MG/ML SYR ONE (19:19)
[2023-10-07 21:44] VITALS: BP 122/80; TEMP 100.4; O2SAT 99
--- NOTE | 2023-10-09 15:44 | EKG ---
Test Date: 2023-10-07 Test Time: 14:28:17 Freight Agent: MORTEZA MEASUREMENT RESULTS: Intervals: Rate: 119 PA: 158 QRSD: 86 QT: 316 QTc: 444 [place]: P: 85 PA: 158 QRS: 70 T: 68 INTERPRETIVE STATEMENTS: Sinus tachycardia Otherwise normal ECG Compared to ECG 12/14/2022 08:08:37 Sinus rhythm no longer present Electronically Signed On 10-09-23 15:40:19 CDT by Cayetano Barrera
== END 2023-10-07 19:22 ==
LOC: ER 12:09
DX: M46.46 Discitis, unspecified, lumbar region (principal); E11.22 Type 2 diabetes mellitus with diabetic chronic kidney disease; I12.0 Hypertensive chronic kidney disease with stage 5 chronic kidney disease or end stage renal disease; N18.6 End stage renal disease; Z99.2 Dependence on renal dialysis; Z91.048 Other nonmedicinal substance allergy status; Z11.52 Encounter for screening for COVID-19
CPT/HCPCS: 93005; 87040 ×2; 85025; 36415; 85610; 83605; 85730; 80053; 86140; 87804 ×2; 74176; 72158; 99285; 87811; A9577; J0692; J2405; J7050; J7040

== ENCOUNTER 2023-12-16 08:19 | Observation (INO) | payer OTHER ==
[2023-12-16 08:39] LABS: Absolute Basophils 0.1 K/uL (0-0.5); Absolute Lymphocytes (CBC) 0.9 K/uL (0.7-4.9); Absolute Monocytes 0.4 K/uL (0.1-1.3); Absolute Neutrophil 7.7 K/uL (1.8-8.0); Basophils % 1.1 % (0-1.3); Eosinophils % 0.5 % (0-4.4); Hematocrit 35.3 % (39.6-49.0); Hemoglobin 11.5 g/dL (13.6-17.9); Lymphocytes % 10.1 % (15.3-44.8); MCH 26.1 pg (27.0-35.0); MCHC 32.5 g/dL (32.0-36.0); MCV 80.3 fL (80-100); MPV 7.5 fL (7.6-11.3); Monocytes % 4.7 % (3.3-12.3); Neutrophils % 83.6 % (41.7-73.7); Nucleated Red Blood Cells % 0.2 % (0-0); Platelets 382 thou/uL (152-406); RBC Red Blood Cell Count 4.39 M/uL (4.33-5.43); Red Cell Distribution Width 18.5 % (12.1-15.2)
[2023-12-16 08:55] LABS: Albumin 3.5 g/dL (3.4-5.0); Albumin/Globulin Ratio 0.6 (1.1-1.8); Alkaline Phosphatase 116 U/L (45-117); Anion Gap 12.7 mEq/L (5.0-15.0); BUN Blood Urea Nitrogen 49 mg/dL (7-18); Bicarbonate 24 mEq/L (21-32); Bilirubin Total 0.3 mg/dL (0.2-1.0); Globulin 5.6 g/dL (2.3-3.5); Glomerular Filtration Rate 7 ml/min (=/>90); Glucose Level 97 mg/dL (74-106); Potassium 3.7 mEq/L (3.5-5.1); Protein, Total 9.1 g/dL (6.4-8.2); Sodium Level 135 mEq/L (136-145)
[2023-12-16 08:56] LABS: ALT/SGPT < 14 U/L (16-61); AST/SGOT < 10 U/L (15-37)
[2023-12-16] MEDS ORDERED: D10W 250 ML IV ONE ×3 (09:01→12:43)
[2023-12-16] MEDS ORDERED: D5 0.45 NS 1,000 ML IV ONE (09:41)
--- NOTE | 2023-12-16 12:06 | RAD REPORT ---
EXAM DESCRIPTION: MRI - Spine Lumbar W/Wo Cont - 12/16/2023 11:26 am CLINICAL HISTORY: Back pain COMPARISON: October 2023 MRI TECHNIQUE: Sagittal T1, T2 and STIR weighted sequences were obtained. Axial T1 and T2 sequences were obtained through the lumbar disc levels. 20 cc MultiHance administered intravenously FINDINGS: The abnormal signal within the L4-5 disc extending into L4 and L5 vertebra is without sign ificant change from prior exam. These areas demonstrate enhancement also without significant change. The enhancement extends into the right neural foramina. An epidural/paraspinal abscess is not seen. No other significant finding. IMPRESSION: Abnormal signal/enhancement L4-5 disc extending into L4 and L5 vertebra and the right ne ural foramina is without significant change from the prior exam compatible with discitis/osteomyeliti s. .
[2023-12-16] MEDS ORDERED: NA CHLORIDE 0.9% 250 ML ONE (12:15)
[2023-12-16] MEDS ORDERED: VANCOMYCIN 1 GM/VIAL ONE (12:15)
--- NOTE | 2023-12-16 12:20 | ER ---
Nurse's Notes [facility] Name: Joss Sheppard Age: 43 yrs Sex: Male : 1980 Arrival Date: 12/16/2023 Time: 08:19 Bed 8 Private MD: Diagnosis: Hypoglycemia, fatigue, chronic discitis L4-L5 Presentation: 12/15 08:25 Chief complaint: EMS states: they were toned out to dialysis for high BP. upon EMS kc6 arrival pt was acting "strange". BGL 43. pt was given D10 IV, BGL improved to 140. pt reports back pain upon arrival to ED. states he is currently being treated for an abscess. Coronavirus screen: At this time, the client does not indicate any symptoms associated with coronavirus-19. Ebola Screen: No symptoms or risks identified at this time. Initial Sepsis Screen: Does the patient meet any 2 criteria? HR > 90 bpm. Does the patient have a suspected source of infection?. Risk Assessment: Do you want to hurt yourself or someone else? Patient reports no desire to harm self or others. Onset of symptoms was December 16, 2023. 08:25 Method Of Arrival: EMS: [facility] kc6 08:25 Acuity: BG 3 kc6 08:25 Care prior to arrival: IV initiated. 18 GA, in the right forearm, Glucose check: 43 kc6 Oxygen administered. via nasal cannula. Triage Assessment: 08:27 General: Appears in no apparent distress. uncomfortable, obese, well groomed, well kc6 developed, Behavior is calm, cooperative, appropriate for age. Pain: Complains of pain in back. EENT: No signs and/or symptoms were reported regarding the EENT system. Neuro: Level of Consciousness is awake, alert, obeys commands, Oriented to person, place, time, situation, Appropriate for age. Cardiovascular: Denies chest pain, shortness of breath, Capillary refill < 3 seconds Dialysis shunt: in the anterior aspect of right upper chest and right arm, with no erythema, with no edema, no bleeding noted. Respiratory: Airway is patent Trachea midline Respiratory effort is even, unlabored, Respiratory pattern is regular, symmetrical. GI: No signs and/or symptoms were reported involving the gastrointestinal system. : No signs and/or symptoms were reported regarding the genitourinary system. Derm: No signs and/or symptoms reported regarding the dermatologic system. Skin is intact, is healthy with good turgor, Skin is pink, warm \\T\\ dry. Musculoskeletal: No signs and/or symptoms reported regarding the musculoskeletal system. Circulation, motion, and sensation intact. Capillary refill < 3 seconds, Range of motion: intact in all extremities. Historical: - Allergies: 08:27 Iodine; kc6 - Home Meds: 08:41 None [Active]; kc6 - PMHx: 08:27 Diabetes - IDDM; End stage renal disease; Hypertension; dialysis (Hypertension); kc6 - PSHx: 08:27 right arm and RU chest fistula (Hypertension); kc6 - Immunization history:: Adult Immunizations up to date. - Infectious Disease History:: Denies. - Social history:: Smoking status: Patient denies any tobacco usage or history of. - Code Status:: Full code. Screenin:30 [facility] ED Fall Risk Assessment (Adult) History of falling in the last 3 months, kc6 including since admission No falls in past 3 months (0 pts) Confusion or Disorientation No (0 pts) Intoxicated or Sedated No (0 pts) Impaired Gait No (0 pts) Mobility Assist Device Used No (0 pt) Altered Elimination No (0 pt) Score/Fall Risk Level 0 - 2 = Low Risk. Abuse screen: Denies threats or abuse. Denies injuries from another. Nutritional screening: No deficits noted. Tuberculosis screening: No symptoms or risk factors identified. Assessment: 08:30 Reassessment: please see triage. [facility] 08:30 Reassessment: attempted to do orthostatics on pt. pt reports that his back is hurting kc6 to much right now. 08:41 Reassessment: Dr. Ricardo notified of BGL of 70. verbal order received to recheck BGL in kc6 30 minutes. pt states, "I haven't eaten today and I haven't taken any prescription medications in over a year since I found out about the kidney failure and went on dialysis.". 09:00 Reassessment: Dr. Ricardo notified of BGL of 45. pt is awake, A\\T\\O x4. pt states, "I feel kc6 fine, my back just really hurts." verbal orders received to admin 250 mL of D10 IV and provide pt something to eat. 10:10 Reassessment: Patient appears in no apparent distress at this time. No changes from kc6 previously documented assessment. Patient and/or family updated on plan of care and expected duration. Pain level reassessed. Patient is alert, oriented x 3, equal unlabored respirations, skin warm/dry/pink. 11:10 Reassessment: Patient appears in no apparent distress at this time. No changes from kc6 previously documented assessment. Patient and/or family updated on plan of care and expected duration. Pain level reassessed. Patient is alert, oriented x 3, equal unlabored respirations, skin warm/dry/pink. 12:10 Reassessment: Patient appears in no apparent distress at this time. No changes from kc6 previously documented assessment. Patient and/or family updated on plan of care and expected duration. Pain level reassessed. Patient is alert, oriented x 3, equal unlabored respirations, skin warm/dry/pink. 14:10 Reassessment: attempted to call report to ICU. SUSANA Garcia states he is trying to kc6 downgrade his pt and move them to another room. states he will call me back. 15:03 Reassessment: SUSANA Garcia states the pt is now being discharged home so it will take kc6 longer for the room to get ready. 15:12 Reassessment: nurse to nurse report given to SUSANA Garcia. states he is d/c the current pt kc6 in that room and will call me when its ready. Vital Signs: 08:25 BP 152 / 103; Pulse 113; Resp 18 S; Pulse Ox 100% on R/A; Weight 152 kg (M); Height 5 kc6 ft. 11 in. (R); 09:15 BP 137 / 78; Pulse 102; Resp 19 S; Temp 98.2(TE); Pulse Ox 95% on R/A; kc6 10:10 BP 151 / 99; Pulse 103; Resp 19 S; Pulse Ox 99% on R/A; kc6 12:27 BP 148 / 83; Pulse 112; Resp 19 S; Pulse Ox 97% on R/A; kc6 12:56 BP 148 / 102; Pulse 111; Resp 19 S; Pulse Ox 100% on R/A; kc6 08:25 Body Mass Index 46.74 (152.00 kg, 180.34 cm) kc6 ED Course: 08:25 Patient arrived in ED. kc6 08:26 Cresencio Ricardo MD is Attending Physician. sp3 08:27 Triage completed. kc6 08:27 Arm band placed on. kc6 08:29 Maintain EMS IV. Dressing intact. Good blood return noted. Site clean \\T\\ dry. Gauge \\T\\ jelly 6 site: 18G LAC. 08:30 Patient has correct armband on for positive identification. Bed in low position. Call kc6 light in reach. Side rails up X2. gambling monitor on. Pulse ox on. NIBP on. Warm blanket given. Pillow given. 08:30 CBC with Diff Sent. bc6 08:30 CMP Sent. bc6 08:31 Monisha Javier, RN is Primary Nurse. kc6 09:07 Diet: Patient given a diabetic meal tray. Patient given juice. Tolerated well. kc6 10:35 Patient moved to [place] via stretcher. db 11:28 Spine Lumbar W/Wo Cont In Process Unspecified. EDMS 12:19 Jorje Case MD is Hospitalizing Provider. sp3 14:10 No provider procedures requiring assistance completed. Patient admitted, IV remains in kc6 place. Administered Medications: 09:07 Drug: D10 in Water IVP 250 ml IVP once Route: IVP; Site: left antecubital; kc6 09:16 Follow up: Response: No adverse reaction kc6 09:45 Drug: D5-1/2 NS IV 1000 ml IV at 100 ml/hr continuous Route: IV; Rate: 100 ml/hr; Site: [facility] left antecubital; 12:26 Follow up: Response: No adverse reaction; Blood sugar is unchanged; IV Status: Infusion kc6 continued upon admission 12:01 Drug: D10 in Water IVP 250 ml IVP once Route: IVP; Site: left antecubital; kc6 12:26 Follow up: Response: No adverse reaction; Blood sugar is elevated kc6 12:26 Drug: vancoMYCIN IVPB 1 grams IVPB once over 2 hrs Route: IVPB; Infused Over: 2 hrs; [facility] Site: left antecubital; Medication: 14:10 VIS not applicable for this client. kc6 Point of Care Testing: Blood Glucose: 11:54 Blood Glucose: 31 mg/dL; [facility] Ranges: Outcome: 12:19 Decision to Hospitalize by Provider. sp3 14:10 Admitted to ER Hold. Please see [facility] for further documentation. kc6 14:10 Condition: stable 14:10 Instructed on the need for admit, 15:54 Patient left the ED. kc6 Signatures: Dispatcher [employer] Cresencio Dominguez MD MD sp3 Monisha Javier RN RN kc6 Melissa Murray RN RN Barby Venegas 6 Corrections: (The following items were deleted from the chart) 09:20 08:25 Chief complaint: EMS states: they were toned out to dialysis for high BP. upon [facility] EMS arrival pt was acting strange. BGL 43. pt was given d10, BGL is now 140. pt reports back pain upon arrival to ED. states he is currently being treated for an abscess kc6 09:21 09:21 Allergies: NKA; kc6 kc6
--- NOTE | 2023-12-16 12:20 | EDPHYS ---
Physician Documentation [facility] Name: Joss Sheppard Age: 43 yrs Sex: Male : 1980 Arrival Date: 12/16/2023 Time: 08:19 Bed 8 Private MD: ED Physician Cresencio Ricardo HPI: 12/15 08:29 This 43 yrs old Black Male presents to ER via EMS with complaints of Low Blood Sugar, sp3 Back Pain. 08:32 43-year-old male with history of end-stage renal disease, diabetes, hypertension who sp3 presents to the ED with chief complaint altered mental status now resolved due to hypoglycemia. Dialysis center activated EMS who found patient's blood sugar to be 40 and after administration of glucose and improvement to 143 glucose patient is now fully awake and oriented in no acute distress. He does state that he is having recurrent back pain in the area of his prior discitis in the L4-L5 region. He is concerned about possible reinfection or unresolved ongoing smoldering infection. He denies any neurological symptoms or complaints, fever, night sweats, intra-abdominal pain, chest pain, shortness of breath, rash, or any other signs or symptoms on ROS at this time.. Historical: - Allergies: 08:27 Iodine; kc6 - Home Meds: 08:41 None [Active]; kc6 - PMHx: 08:27 Diabetes - IDDM; End stage renal disease; Hypertension; dialysis (Hypertension); kc6 - PSHx: 08:27 right arm and RU chest fistula (Hypertension); kc6 - Immunization history:: Adult Immunizations up to date. - Infectious Disease History:: Denies. - Social history:: Smoking status: Patient denies any tobacco usage or history of. - Code Status:: Full code. ROS: 08:33 Constitutional: Negative for fever, chills, and weight loss, Eyes: Negative for injury, sp3 pain, redness, and discharge, Neck: Negative for injury, pain, and swelling, Cardiovascular: Negative for chest pain, palpitations, and edema, Respiratory: Negative for shortness of breath, cough, wheezing, and pleuritic chest pain, Abdomen/GI: Negative for abdominal pain, nausea, vomiting, diarrhea, and constipation, MS/Extremity: Negative for injury and deformity, Allergy/Immunology: Negative for hives, rash, and allergies, 08:33 All other systems are negative, Exam: 08:33 Constitutional: This is a well developed, well nourished patient who is awake, alert, sp3 and in no acute distress. Head/Face: Normocephalic, atraumatic. Eyes: Pupils equal round and reactive to light, extra-ocular motions intact. Lids and lashes normal. Conjunctiva and sclera are non-icteric and not injected. Cornea within normal limits. Periorbital areas with no swelling, redness, or edema. Neck: Trachea midline, no thyromegaly or masses palpated, and no cervical lymphadenopathy. Supple, full range of motion without nuchal rigidity, or vertebral point tenderness. No Meningismus. Chest/axilla: Normal chest wall appearance and motion. Nontender with no deformity. No lesions are appreciated. Respiratory: Lungs have equal breath sounds bilaterally, clear to auscultation and percussion. No rales, rhonchi or wheezes noted. No increased work of breathing, no retractions or nasal flaring. Abdomen/GI: Soft, non-tender, with normal bowel sounds. No distension or tympany. No guarding or rebound. No evidence of tenderness throughout. Back: No spinal tenderness. No costovertebral tenderness. Full range of motion. Skin: Warm, dry with normal turgor. Normal color with no rashes, no lesions, and no evidence of cellulitis. MS/ Extremity: Pulses equal, no cyanosis. Neurovascular intact. Full, normal range of motion. Neuro: Awake and alert, GCS 15, oriented to person, place, time, and situation. Cranial nerves II-XII grossly intact. Motor strength 5/5 in all extremities. Sensory grossly intact. Cerebellar exam normal. Normal gait. Psych: Awake, alert, with orientation to person, place and time. Behavior, mood, and affect are within normal limits. 08:33 Cardiovascular: Rate: tachycardic, Vital Signs: 08:25 BP 152 / 103; Pulse 113; Resp 18 S; Pulse Ox 100% on R/A; Weight 152 kg (M); Height 5 kc6 ft. 11 in. (R); 09:15 BP 137 / 78; Pulse 102; Resp 19 S; Temp 98.2(TE); Pulse Ox 95% on R/A; kc6 10:10 BP 151 / 99; Pulse 103; Resp 19 S; Pulse Ox 99% on R/A; kc6 12:27 BP 148 / 83; Pulse 112; Resp 19 S; Pulse Ox 97% on R/A; kc6 12:56 BP 148 / 102; Pulse 111; Resp 19 S; Pulse Ox 100% on R/A; kc6 08:25 Body Mass Index 46.74 (152.00 kg, 180.34 cm) kc6 MDM: 08:26 Patient medically screened. sp3 08:33 Data reviewed: vital signs, nurses notes, EMS record, old medical records, lab test sp3 result(s), radiologic studies. ED course: 43-year-old male with PMH above and past discitis now with a resolved hypoglycemia due to poor p.o. intake and now also recurrent back pain. We will obtain laboratory values, cultures and CT scan of the lumbar spine with and without contrast to assess. Disposition pending workup and patient course.. 08:47 ED course: CT changed to MRI as per radiology recommendation.. sp3 12:18 ED course: MRI demonstrates continued discitis unchanged from prior. This may just be sp3 chronic. Vancomycin 1 g IV has been ordered. The bigger challenges to continued rapid hypoglycemia. Patient has received 2 D10 infusions as well as continuous D5 half-normal saline and multiple p.o. intake meals. We will admit patient to hospitalist service for further monitoring and evaluation.. 12/15 08:26 Order name: CBC with Diff; Complete Time: 09:04 sp3 12/15 08:26 Order name: CMP; Complete Time: 09:04 sp3 12/15 08:30 Order name: Blood Culture Adult (2) sp3 12/15 08:47 Order name: Glucose, Ancillary Testing; Complete Time: 09:04 EDMS 12/15 09:11 Order name: Glucose, Ancillary Testing; Complete Time: 09:15 EDMS 12/15 09:47 Order name: Glucose, Ancillary Testing; Complete Time: 09:48 EDMS 12/15 12:01 Order name: Glucose, Ancillary Testing; Complete Time: 12:09 EDMS 12/15 12:32 Order name: Glucose, Ancillary Testing EDMS 12/15 12:38 Order name: Urinalysis w/ reflexes EDMS 12/15 12:38 Order name: Basic Metabolic Panel EDMS 12/15 12:39 Order name: Basic Metabolic Panel EDMS 12/15 12:39 Order name: CBC with Automated Diff EDMS 12/15 12:39 Order name: CBC with Automated Diff EDMS 12/15 12:39 Order name: Magnesium EDMS 12/15 12:39 Order name: Magnesium EDMS 12/15 13:04 Order name: Glucose, Ancillary Testing EDMS 12/15 13:50 Order name: Glucose, Ancillary Testing EDMS 12/15 14:47 Order name: Glucose, Ancillary Testing EDMS 12/15 08:50 Order name: Spine Lumbar W/Wo Cont; Complete Time: 12:09 EDMS 12/15 08:26 Order name: IV Saline Lock; Complete Time: 08:31 sp3 12/15 08:26 Order name: Labs collected and sent; Complete Time: 08:31 sp3 12/15 08:26 Order name: Accucheck; Complete Time: 08:32 sp3 12/15 11:30 Order name: Accucheck; Complete Time: 12:01 sp3 Administered Medications: 09:07 Drug: D10 in Water IVP 250 ml IVP once Route: IVP; Site: left antecubital; kc6 09:16 Follow up: Response: No adverse reaction kc6 09:45 Drug: D5-1/2 NS IV 1000 ml IV at 100 ml/hr continuous Route: IV; Rate: 100 ml/hr; Site: kc left antecubital; 12:26 Follow up: Response: No adverse reaction; Blood sugar is unchanged; IV Status: Infusion kc6 continued upon admission 12:01 Drug: D10 in Water IVP 250 ml IVP once Route: IVP; Site: left antecubital; kc6 12:26 Follow up: Response: No adverse reaction; Blood sugar is elevated kc6 12:26 Drug: vancoMYCIN IVPB 1 grams IVPB once over 2 hrs Route: IVPB; Infused Over: 2 hrs; kc6 Site: left antecubital; Point of Care Testing: Blood Glucose: 11:54 Blood Glucose: 31 mg/dL; kc6 Ranges: Critical Glucose Levels:Adult <50 mg/dl or >400 mg/dl <40 mg/dl or >180 mg/dl Disposition Summary: 12/16/23 12:19 Hospitalization Ordered Notes: Hospitalization Status: Inpatient Admission sp3 Provider: Case, Mohammad sp3 Condition: Stable sp3 Problem: an acute exacerbation sp3 Symptoms: have worsened sp3 Bed/Room Type: Standard sp3 Location: Intensive Care Unit(12/16/23 14:07) bd Room Assignment: 6-(12/16/23 14:07) bd Diagnosis - Hypoglycemia, fatigue, chronic discitis L4-L5 sp3 Forms: - Medication Reconciliation Form sp3 - SBAR form sp3 - Leadership Thank You Letter sp3 Critical care time excluding procedures: 13:14 Critical care time: Bedside Care: 15 minutes, Consultation: 10 minutes, Family sp3 Intervention: 10 minutes. Total time: 35 minutes Signatures: Dispatcher [employer] EDMS Jesusita Velasco Setul, MD MD sp3 Monisha Javier RN RN kc6 Corrections: (The following items were deleted from the chart) 08:27 08:27 CBC+H.LAB.BRZ ordered. EDMS EDMS 08:27 08:27 COMPREHENSIVE METABOLIC PANEL+C.LAB.BRZ ordered. EDMS EDMS 09:21 09:21 Allergies: NKA; kc6 kc6 12:26 08:26 Orthostatics ordered. sp3 kc6 13:19 12:19 Telemetry/MedSurg (Inpatient) sp3 bd 13:19 12:19 sp3 bd 14:07 13:19 [facility] ER HOLD bd bd 14:07 13:19 ERHOLD- bd bd
[2023-12-16] MEDS ORDERED: ACETAMINOPHEN 500 MG TAB PO PRN (12:35)
[2023-12-16] MEDS ORDERED: ONDANSETRON 4 MG/2 ML VIAL IV PRN (12:35)
--- NOTE | 2023-12-16 12:37 | P.HP ---
Certification for Inpatient Patient admitted to: Observation Practitioner: I am a practitioner with admitting privileges, knowledge of patient current condition, hospital course, and medical plan of care. Services: Services provided to patient in accordance with Admission requirements found in Title 42 Section 412.3 of the Code of Federal Regulations Patient History Date of Service: 12/16/23 Reason for admission: Hypoglycemia History of Present Illness: 43old Black Male with past medical history of Diabetes - IDDM; End stage renal disease; Hypertension; dialysis (Hypertension) presents to the ER for hypoglycemia that occurred during hemodialysis. . Dialysis center activated EMS who found patient's blood sugar to be 40, administration of glucose and improvement to 143 glucose patient is now fully awake and oriented in no acute distress. However, blood glucose continues to bottom out despite being on IV Dextrose. No fever, nausea vomiting diarrhea, reported shortness of breath or chest pain, plan to admit for Hypoglycemia, fatigue, chronic discitis L4-L5, nephrology to consult, plan to admit to ICU for every hour blood sugar monitoring. ER course, MRI demonstrates continued discitis unchanged from prior. This may just be chronic. Vancomycin 1 g IV has been ordered. The bigger challenges to continued rapid hypoglycemia. Patient has received 2 D10 infusions as well as continuous D5 half-normal saline and multiple p.o. intake meals. Allergies iodine Adverse Reaction (Mild, Verified 12/17/22 11:26) gas shellfish derived Adverse Reaction (Verified 12/17/22 11:26) gas Home Medications: Amlodipine [Norvasc*] 10 mg PO DAILY 06/12/18 Calcium Acetate [Phoslo*] 1,334 mg PO TIDWM #180 tab 12/25/22 Ferrous Sulfate [Ferrous Sulfate*] 325 mg PO BID tab 12/25/22 Furosemide [Lasix*] 40 mg PO BIDL #60 tab 12/25/22 Isosorbide Dinit [Isordil*] 20 mg PO TID #90 tab 12/25/22 Losartan Potassium [Cozaar*] 50 mg PO BID #60 tab 12/25/22 atenoloL [Tenormin*] 25 mg PO BEDTIME #30 tab 12/25/22 calcitrioL [Rocaltrol] 0.25 mcg PO DAILY #30 tab 12/25/22 - Past Medical/Surgical History Diabetic: Yes -: IDDM -: HTN - Family History Father -: Hypertension, Diabetes Mother -: Hypertension, Diabetes - Social History Alcohol use: Yes CD- Drugs: No Caffeine use: Yes Review of Systems per HPI Physical Examination - Physical Exam General: Alert, In no apparent distress, Oriented x3, Other (generalized weakness) HEENT: Atraumatic Neck: Supple, JVD not distended Respiratory: Clear to auscultation bilaterally, Normal air movement Cardiovascular: Normal pulses, Regular rate/rhythm Capillary refill: <2 Seconds Gastrointestinal: Normal bowel sounds, Soft and benign, Other (obese) Musculoskeletal: No swelling, No contractures Integumentary: No breakdown, No significant lesion Neurological: Normal speech, Normal strength at 5/5 x4 extr - Studies Laboratory Data (last 24 hrs) 12/16/23 12/16/23 08:30 08:30 WBC 9.20 Hgb 11.5 L Hct 35.3 L Plt Count 382 Sodium 135 L Potassium 3.7 BUN 49 H Creatinine 8.44 H Glucose 97 Total Bilirubin 0.3 AST < 10 L ALT < 14 L Alkaline Phosphatase 116 Assessment and Plan - Plan Assessment plan Hypoglycemia Discitis Telemetry, blood cultures, urine cultures, IV vancomycin, BP 152 / 103; Pulse 113; Resp 18 S; Pulse Ox 100% on R/A; Weight 152 kg (M); Height 5 ft. 11 in. (R); D10 TKO Every hour blood sugar, acute 2-hour blood sugars if stable Hypoglycemia protocol MRI IMPRESSION: Abnormal signal/enhancement L4-5 disc extending into L4 and L5 vertebra and the right neural foramina is without significant change from the prior exam compatible with discitis/osteomyelitis. End-stage renal disease on hemodialysis Nephrology consult, Trend kidney function, avoid nephrotoxic medication Morbid obesity BMI 46.74 Diabetes type 2 Hypertension Resume appropriate home medications A1c in the a.m. Full code Diet renal DVT heparin Disposition Home independent prior Discharge Plan: Home - Advance Directives Does patient have a Living Will: No Does patient have a Durable POA for Healthcare: No - Code Status/Comfort Care Code Status: Full Code Critical Care: No Time Spent Managing Pts Care (In Minutes): 55
[2023-12-16] MEDS: D10W 250 ML IV SCH (13:00)
[2023-12-16] MEDS: INSULIN REGULAR (HUMAN) 100 UNIT/ML SQ SCH (13:39)
[2023-12-16 13:57] VITALS: BMI 46.7
[2023-12-16] MEDS: VANCOMYCIN 2 GM in NA CHLORIDE 0.9% 500 ML IVPB SCH (17:20)
--- NOTE | 2023-12-16 21:52 | P.CNS ---
Date of Consult: 12/16/23 Reason for Consult: ESRD Requesting Physician: Jorje Case Chief Complaint: Hypoglycemia History of Present Illness: 43old Black Male with past medical history of Diabetes - IDDM; End stage renal disease; Hypertension; dialysis (Hypertension) presents to the ER for hypoglycemia that occurred during hemodialysis. . Dialysis center activated EMS who found patient's blood sugar to be 40, administration of glucose and improvem ent to 143 glucose patient is now fully awake and oriented in no acute distress. However, blood glucose continues to bottom out despite being on IV Dextrose. No fever, nausea vomiting diarrhea, reported shortness of breath or chest pain, plan to admit for Hypoglycemia, fatigue, chronic discitis L4-L5, nephrology to consult, plan to admit to ICU for every hour blood sugar monitoring. ER course, MRI demonstrates continued discitis unchanged from prior. This may just be chronic. Vancomycin 1 g IV has been ordered. The bigger challenges to continued rapid hypoglycemia. Patient has received 2 D10 infusions as well as continuous D5 half-normal saline and multiple p.o. intake meals. [id number] 08:29 This 43 yrs old Black Male presents to ER via EMS with complaints of Low Blood Sugar, sp3 Back Pain. 08:32 43-year-old male with history of end-stage renal disease, diabetes, hypertension who sp3 presents to the ED with chief complaint altered mental status now resolved due to hypoglycemia. Dialysis center activated EMS who found patient's blood sugar to be 40 and after administration of glucose and improvement to 143 glucose patient is now fully awake and oriented in no acute distress. He does state that he is having recurrent back pain in the area of his prior discitis in the L4-L5 region. He is concerned about possible reinfection or unresolved ongoing smoldering infection. He denies any neurological symptoms or complaints, fever, night sweats, intra-abdominal pain, chest pain, shortness of breath, rash, or any other signs or symptoms on ROS at this time.. Allergies iodine Adverse Reaction (Mild, Verified 12/17/22 11:26) gas shellfish derived Adverse Reaction (Verified 12/17/22 11:26) gas Home medications list reviewed: Yes Home Medications: Amlodipine [Norvasc*] 10 mg PO DAILY 06/12/18 Calcium Acetate [Phoslo*] 1,334 mg PO TIDWM #180 tab 12/25/22 Ferrous Sulfate [Ferrous Sulfate*] 325 mg PO BID tab 12/25/22 Furosemide [Lasix*] 40 mg PO BIDL #60 tab 12/25/22 Isosorbide Dinit [Isordil*] 20 mg PO TID #90 tab 12/25/22 Losartan Potassium [Cozaar*] 50 mg PO BID #60 tab 12/25/22 atenoloL [Tenormin*] 25 mg PO BEDTIME #30 tab 12/25/22 calcitrioL [Rocaltrol] 0.25 mcg PO DAILY #30 tab 12/25/22 - Past Medical/Surgical History Diabetic: Yes -: IDDM -: HTN -: ESRD on HD (Dr. Jean Baptiste/ [facility]) - Family History Father Medical History: Hypertension, Diabetes Mother Medical History: Hypertension, Diabetes - Social History Alcohol use: Yes CD- Drugs: No Caffeine use: Yes Place of Residence: Home Review of Systems 10-point ROS is otherwise unremarkable General: Malaise Physical Examination Temp Pulse Resp BP Pulse Ox 98.6 F 104 H 19 139/82 95 12/16/23 16:00 12/16/23 19:00 12/16/23 19:00 12/16/23 19:00 12/16/23 19:00 General: In no apparent distress, Oriented x3, Cooperative HEENT: Atraumatic Neck: Supple Respiratory: Clear to auscultation bilaterally, Normal air movement Cardiovascular: No edema, Regular rate/rhythm Gastrointestinal: Soft and benign, Non-distended Musculoskeletal: No clubbing, No contractures Integumentary: No rashes, No cyanosis Neurological: Normal speech Urinary: Dialysis catheter Laboratory Data (last 24 hrs) 12/16/23 12/16/23 08:30 08:30 WBC 9.20 Hgb 11.5 L Hct 35.3 L Plt Count 382 Sodium 135 L Potassium 3.7 BUN 49 H Creatinine 8.44 H Glucose 97 Total Bilirubin 0.3 AST < 10 L ALT < 14 L Alkaline Phosphatase 116 Imagings Data: [id number] EXAM DESCRIPTION: MRI - Spine Lumbar W/Wo Cont - 12/16/2023 11:26 am CLINICAL HISTORY: Back pain COMPARISON: October 2023 MRI TECHNIQUE: Sagittal T1, T2 and STIR weighted sequences were obtained. Axial T1 and T2 sequences were obtained through the lumbar disc levels. 20 cc MultiHance administered intravenously FINDINGS: The abnormal signal within the L4-5 disc extending into L4 and L5 vertebra is without significant change from prior exam. These areas demonstrate enhancement also without significant change. The enhancement extends into the right neural foramina. An epidural/paraspinal abscess is not seen. No other significant finding. IMPRESSION: Abnormal signal/enhancement L4-5 disc extending into L4 and L5 vertebra and the right neural foramina is without significant change from the prior exam compatible with discitis/osteomyelitis. Conclusions/Impression: ESRD on HD TTS -HD TIW HTN with CKD/ CHF -Restart Atenolol Diastolic CHF, chronic -HD with UF DM II with CKD complicated by hypoglycemia -Continue D10 Anemia in CKD -Retacrit prn CKD MBD -Start Vitamin D3 L4/L5 Discitis/ Osteomyelitis -Continue Vancomycin Case reviewed with the hospitalist team Thank you kindly for the consultation
[2023-12-16] MEDS ORDERED: MANNITOL 25% 12.5 GM/50 ML VIAL IV PRN (22:01)
[2023-12-16] MEDS ORDERED: NA CHLORIDE 0.9% 1,000 ML IV PRN (22:01)
[2023-12-16] MEDS: atenoloL 25 MG TAB PO SCH (22:10)
[2023-12-16 22:13] VITALS: TEMP 97.9
[2023-12-16 22:14] VITALS: O2SAT 96
[2023-12-16] MEDS ORDERED: ACETAMIN/CAFFEINE/BUTALB TAB PO PRN (22:49)
[2023-12-16] MEDS ORDERED: ACETAMINOPHEN 325 MG TABLET PO PRN (22:49)
[2023-12-16] MEDS ORDERED: HYDROCODONE/APAP 5/325 MG TAB PO PRN (22:49)
[2023-12-16] MEDS ORDERED: ALBUMIN HUMAN 25% 50 ML IV SCH (23:00)
[2023-12-17 05:34] LABS: Potassium 4.3 mEq/L (3.5-5.1)
[2023-12-17 05:35] LABS: Albumin/Globulin Ratio 0.6 (1.1-1.8); Anion Gap 13.3 mEq/L (5.0-15.0); Bilirubin Total 0.3 mg/dL (0.2-1.0); Globulin 4.9 g/dL (2.3-3.5); Phosphorus 6.5 mg/dL (2.5-4.9); Protein, Total 7.9 g/dL (6.4-8.2)
[2023-12-17 05:36] LABS: Magnesium 2.1
--- NOTE | 2023-12-17 07:10 | P.PN ---
Subjective Date of Service: 12/17/23 Chief Complaint: Hypoglycemia History of end-stage renal disease on hemodialysis Friday, nephrology consult Was admitted for hypoglycemia, on D10 TKO - Physical Exam General: Alert, In no apparent distress, Oriented x3, Other (generalized weakness) HEENT: Atraumatic Neck: Supple, JVD not distended Respiratory: Clear to auscultation bilaterally, Normal air movement Cardiovascular: Normal pulses, Regular rate/rhythm Capillary refill: <2 Seconds Gastrointestinal: Normal bowel sounds, Soft and benign, Other (obese) Musculoskeletal: No swelling, No contractures Integumentary: No breakdown, No significant lesion Neurological: Normal speech, Normal strength at 5/5 x4 extr Review of Systems per HPI Physical Examination - Vital Signs Temperature: 97.9 F Blood Pressure: 104/64 Pulse: 78 Respirations: 12 Pulse Ox (%): 96 - Studies Laboratory Data (last 24 hrs) 12/16/23 12/16/23 08:30 08:30 WBC 9.20 Hgb 11.5 L Hct 35.3 L Plt Count 382 Sodium 135 L Potassium 3.7 BUN 49 H Creatinine 8.44 H Glucose 97 Total Bilirubin 0.3 AST < 10 L ALT < 14 L Alkaline Phosphatase 116 Assessment And Plan - Plan Assessment plan Hypoglycemia Discitis Telemetry, blood cultures, urine cultures, IV vancomycin, BP 152 / 103; Pulse 113; Resp 18 S; Pulse Ox 100% on R/A; Weight 152 kg (M); Height 5 ft. 11 in. (R); D10 TKO Every hour blood sugar, acute 2-hour blood sugars if stable Hypoglycemia protocol MRI IMPRESSION: Abnormal signal/enhancement L4-5 disc extending into L4 and L5 vertebra and the right neural foramina is without significant change from the prior exam compatible with discitis/osteomyelitis. End-stage renal disease on hemodialysis Nephrology consult, Trend kidney function, avoid nephrotoxic medication Morbid obesity BMI 46.74 Diabetes type 2 Hypertension Resume appropriate home medications A1c in the a.m. Full code Diet renal DVT heparin Disposition Home independent prior Discharge Plan: Home Critical Care: Yes Time Spent Managing PTS Care (In Minutes): 55
[2023-12-17] MEDS: MULTIVITAMINS,THERAPEUT 1 TAB PO SCH (08:28)
[2023-12-17] MEDS: VITAMIN D 5,000 UNIT CAP PO SCH (08:28)
[2023-12-17] MEDS: DOCUSATE NA 100 MG CAP PO SCH (08:28)
[2023-12-17] MEDS: SEVELAMER CARBONATE 800 MG TABLET PO SCH (09:00)
--- NOTE | 2023-12-17 09:38 | P.DS ---
Admission Date: 12/16/23 Discharge Date: 12/17/23 Disposition: ROUTINE DISCHARGE Discharge Condition: GOOD Reason for Admission: Hypoglycemia Brief History of Present Illness: 43old Black Male with past medical history of Diabetes - IDDM; End stage renal disease; Hypertension; dialysis (Hypertension) presents to the ER for hypoglycemia that occurred during hemodialysis. . Dialysis center activated EMS who found patient's blood sugar to be 40, administration of glucose and improvement to 143 glucose patient is now fully awake and oriented in no acute distress. However, blood glucose continues to bottom out despite being on IV De xtrose. No fever, nausea vomiting diarrhea, reported shortness of breath or chest pain, plan to admit for Hypoglycemia, fatigue, chronic discitis L4-L5, nephrology to consult, plan to admit to ICU for every hour blood sugar monitoring. ER course, MRI demonstrates continued discitis unchanged from prior. This may just be chronic. Vancomycin 1 g IV has been ordered. The bigger challenges to continued rapid hypoglycemia. Patient has received 2 D10 infusions as well as continuous D5 half-normal saline and multiple p.o. intake meals. - Physical Exam General: Alert, In no apparent distress, Oriented x3, Other (generalized weakness) HEENT: Atraumatic Neck: Supple, JVD not distended Respiratory: Clear to auscultation bilaterally, Normal air movement Cardiovascular: Normal pulses, Regular rate/rhythm Capillary refill: <2 Seconds Gastrointestinal: Normal bowel sounds, Soft and benign, Other (obese) Musculoskeletal: No swelling, No contractures Integumentary: No breakdown, No significant lesion Neurological: Normal speech, Normal strength at 5/5 x4 extr Hospital Course: 43old Black Male with past medical history of Diabetes - IDDM; End stage renal disease; Hypertension; dialysis (Hypertension) presents to the ER for hypoglycemia that occurred during hemodialysis. He is was treated with dextro se, Accu-Cheks, to monitor blood glucose, nephrology was consulted for dialysis for today. Patient can follow-up with nephrology continue dialysis schedule, follow-up nephrology in 1 week, follow-up with PCP in 1 week, Assessment End-stage renal disease on hemodialysis, follow-up with nephrology for dialysis schedule Hypoglycemia-patient will need to check blood glucose ACHS, and as needed for h ypoglycemia, educated on hypoglycemia prior to discharge Morbid obesity recommend weight loss, Continue home medicines as previously prescribed GOAL: Clear understanding of disease process INSTRUCTIONS: Physician Discharge Instructions: -Follow-up with PCP in 1 to 2 weeks -Please call Dr. Case at [phone] if any questions regarding hospital stay -Please call nursing station at [phone] if any nursing or medication questions -Return to the emergency room if symptoms worsen Diet: ADA, low sodium Activity: Fall precautions Vital Signs/Physical Exam: Temp Pulse Resp BP Pulse Ox 97.9 F 81 17 118/80 97 12/17/23 07:10 12/17/23 08:00 12/17/23 08:00 12/17/23 08:00 12/17/23 08:00 Laboratory Data at Discharge: WBC 9.20 thou/uL (4.3-10.9) 12/16/23 08:30 Hgb 11.5 g/dL (13.6-17.9) L 12/16/23 08:30 Hct 35.3 % (39.6-49.0) L 12/16/23 08:30 Plt Count 382 thou/uL (152-406) 12/16/23 08:30 Sodium 133 mEq/L (136-145) L 12/17/23 04:17 Potassium 4.3 mEq/L (3.5-5.1) D 12/17/23 04:17 BUN 59 mg/dL (7-18) H 12/17/23 04:17 Creatinine 9.73 mg/dL (0.70-1.30) H 12/17/23 04:17 Glucose 93 mg/dL (74-106) 12/17/23 04:17 Phosphorus 6.5 mg/dL (2.5-4.9) H 12/17/23 04:17 Magnesium 2.1 12/17/23 04:17 Total Bilirubin 0.3 mg/dL (0.2-1.0) 12/17/23 04:17 AST 6 U/L (15-37) L 12/17/23 04:17 ALT 11 U/L (16-61) L 12/17/23 04:17 Alkaline Phosphatase 108 U/L (45-117) 12/17/23 04:17 Home Medications: Amlodipine [Norvasc*] 10 mg PO DAILY 06/12/18 Calcium Acetate [Phoslo*] 1,334 mg PO TIDWM #180 tab 12/25/22 Ferrous Sulfate [Ferrous Sulfate*] 325 mg PO BID tab 12/25/22 Furosemide [Lasix*] 40 mg PO BIDL #60 tab 12/25/22 Isosorbide Dinit [Isordil*] 20 mg PO TID #90 tab 12/25/22 Losartan Potassium [Cozaar*] 50 mg PO BID #60 tab 12/25/22 atenoloL [Tenormin*] 25 mg PO BEDTIME #30 tab 12/25/22 calcitrioL [Rocaltrol] 0.25 mcg PO DAILY #30 tab 12/25/22 Diet: ADA Activity: Fall precautions Followup: NONE,NONE [Primary Care Provider] - Time spent managing pt's care (in minutes): 55
[2023-12-17] MEDS: EPOETIN ALFA 10,000 UNIT/ML VIAL IV SCH (12:15)
[2023-12-17 14:26] VITALS: BP 116/75
--- NOTE | 2023-12-17 20:10 | P.PN ---
Date of Service: 12/17/23 Vital Signs Temp Pulse Resp BP Pulse Ox 97.9 F 80 15 116/75 97 12/17/23 13:16 12/17/23 13:16 12/17/23 13:16 12/17/23 13:16 12/17/23 13:16 Microbiology Results 12/16/23 08:55 Blood - Blood Aerobic Blood Culture - Preliminary No growth in 24 hours. 12/16/23 08:55 Blood - Blood Anaerobic Blood Culture - Preliminary No growth in 24 hours. 12/16/23 08:40 Blood - Blood Aerobic Blood Culture - Preliminary No growth in 24 hours. 12/16/23 08:40 Blood - Blood Anaerobic Blood Culture - Preliminary No growth in 24 hours. Assessment/ Plan: Nephrology No dyspnea No chest pain Feeling better today No acute events overnight Vitals, medications, blood work and imaging reviewed in the chart General: In no apparent distress, Oriented x3, Cooperative HEENT: Atraumatic Neck: Supple Respiratory: Clear to auscultation bilaterally, Normal air movement Cardiovascular: No edema, Regular rate/rhythm Gastrointestinal: Soft and benign, Non-distended Musculoskeletal: No clubbing, No contractures Integumentary: No rashes, No cyanosis Neurological: Normal speech Urinary: Dialysis catheter Laboratory Data (last 24 hrs) 12/16/23 12/16/23 08:30 08:30 WBC 9.20 Hgb 11.5 L Hct 35.3 L Plt Count 382 Sodium 135 L Potassium 3.7 BUN 49 H Creatinine 8.44 H Glucose 97 Total Bilirubin 0.3 AST < 10 L ALT < 14 L Alkaline Phosphatase 116 Imagings Data: [id number] EXAM DESCRIPTION: MRI - Spine Lumbar W/Wo Cont - 12/16/2023 11:26 am CLINICAL HISTORY: Back pain COMPARISON: October 2023 MRI TECHNIQUE: Sagittal T1, T2 and STIR weighted sequences were obtained. Axial T1 and T2 sequences were obtained through the lumbar disc levels. 20 cc MultiHance administered intravenously FINDINGS: The abnormal signal within the L4-5 disc extending into L4 and L5 vertebra is without significant change from prior exam. These areas demonstrate enhancement also without significant change. The enhancement extends into the right neural foramina. An epidural/paraspinal abscess is not seen. No other significant finding. IMPRESSION: Abnormal signal/enhancement L4-5 disc extending into L4 and L5 vertebra and the right neural foramina is without significant change from the prior exam compatible with discitis/osteomyelitis. 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
[2023-12-18] MEDS ORDERED: VANCOMYCIN 1 GM in NA CHLORIDE 0.9% 250 ML IVPB SCH (16:00)
[2023-12-20 06:05] LABS: C-Peptide 3.57 ng/mL (0.80-3.85); Insulin 4.3 uIU/mL (<=18.4)
== END 2023-12-17 13:50 | disposition home or self-care (01) ==
LOC: ER 08:19 → ERHOLD 12:25 → 3RD-ICU 14:30
PROVIDERS: ADMIT Hospitalist; ATTEND Hospitalist
DX: E11.649 Type 2 diabetes mellitus with hypoglycemia without coma (principal); E11.22 Type 2 diabetes mellitus with diabetic chronic kidney disease; I12.0 Hypertensive chronic kidney disease with stage 5 chronic kidney disease or end stage renal disease; N18.6 End stage renal disease; E66.01 Morbid (severe) obesity due to excess calories; R53.83 Other fatigue; M86.9 Osteomyelitis, unspecified; M46.46 Discitis, unspecified, lumbar region; R41.82 Altered mental status, unspecified; I50.32 Chronic diastolic (congestive) heart failure; Z99.2 Dependence on renal dialysis; Z68.42 Body mass index [BMI] 45.0-49.9, adult; Z91.013 Allergy to seafood; Z88.8 Allergy status to other drugs, medicaments and biological substances; Z71.3 Dietary counseling and surveillance
CPT/HCPCS: 96361; 87040 ×2; 85025; 36415; 83735; 84100; 82947 ×18; 83036; 80053 ×2; 84145; 83525; 84681; 90935; 72158; 96374; 99285; A9577; Q4081; J1644 ×2; J7799; J7050; J7040; G0378 ×4

== ENCOUNTER 2023-12-20 06:16 | Observation (INO) | payer OTHER ==
[2023-12-20 07:35] LABS: Absolute Basophils 0.1 K/uL (0-0.5); Absolute Eosinophils 0.4 K/uL (0-0.5); Absolute Lymphocytes (CBC) 1.5 K/uL (0.7-4.9); Absolute Monocytes 0.8 K/uL (0.1-1.3); Absolute Neutrophil 5.7 K/uL (1.8-8.0); Basophils % 1.1 % (0-1.3); Eosinophils % 5.2 % (0-4.4); Hematocrit 35.3 % (39.6-49.0); Hemoglobin 11.4 g/dL (13.6-17.9); Lymphocytes % 17.1 % (15.3-44.8); MCH 26.2 pg (27.0-35.0); MCHC 32.3 g/dL (32.0-36.0); MCV 81.1 fL (80-100); MPV 7.3 fL (7.6-11.3); Monocytes % 9.8 % (3.3-12.3); Neutrophils % 66.8 % (41.7-73.7); Nucleated Red Blood Cells % 0.2 % (0-0); Platelets 415 thou/uL (152-406); RBC Red Blood Cell Count 4.35 M/uL (4.33-5.43); Red Cell Distribution Width 18.5 % (12.1-15.2)
[2023-12-20 07:46] LABS: Anion Gap 15.4 mEq/L (5.0-15.0); Potassium 4.4 mEq/L (3.5-5.1)
--- NOTE | 2023-12-20 08:10 | ER ---
Nurse's Notes [facility] Name: Joss Sheppard Age: 43 yrs Sex: Male : 1980 Arrival Date: 12/20/2023 Time: 06:16 Bed 16 Private MD: Diagnosis: Other complication of vascular dialysis catheter Presentation: 12/19 06:28 Chief complaint: Patient states: he accidentally pulled out his dialysis catheter. cp4 Coronavirus screen: Vaccine status: Patient reports being unvaccinated. Client denies travel out of the [place] in the last 14 days. At this time, the client does not indicate any symptoms associated with coronavirus-19. Ebola Screen: Patient negative for fever greater than or equal to 101.5 degrees Fahrenheit, and additional compatible Ebola Virus Disease symptoms Patient denies exposure to infectious person. Patient denies travel to an Ebola-affected area in the 21 days before illness onset. No symptoms or risks identified at this time. Initial Sepsis Screen: Does the patient meet any 2 criteria? No. Patient's initial sepsis screen is negative. Does the patient have a suspected source of infection? No. Patient's initial sepsis screen is negative. Risk Assessment: Do you want to hurt yourself or someone else? Patient reports no desire to harm self or others. Onset of symptoms was December 20, 2023. 06:28 Method Of Arrival: Ambulatory cp4 06:28 Acuity: BG 3 cp4 Triage Assessment: 06:30 General: Appears in no apparent distress. Behavior is calm, cooperative, appropriate cp4 for age. Pain: Denies pain. Historical: - Allergies: 06:30 Iodine; cp4 - Home Meds: 06:30 lisinopril Oral [Active]; Tresiba FlexTouch U-100 100 unit/mL (3 mL) subcutaneous inpn cp4 daily [Active]; - PMHx: 06:30 Diabetes - IDDM; Dialysis (Hypertension); End stage renal disease; Hypertension; cp4 - PSHx: 06:30 right arm and RU chest fistula (en); cp4 - Immunization history:: Adult Immunizations up to date. - Infectious Disease History:: Denies. - Social history:: Smoking status: Patient denies any tobacco usage or history of. - Family history:: not pertinent. Screenin:32 [facility] ED Fall Risk Assessment (Adult) History of falling in the last 3 months, cp4 including since admission No falls in past 3 months (0 pts) Confusion or Disorientation No (0 pts) Intoxicated or Sedated No (0 pts) Impaired Gait No (0 pts) Mobility Assist Device Used No (0 pt) Altered Elimination No (0 pt) Score/Fall Risk Level 0 - 2 = Low Risk Oriented to surroundings, Maintained a safe environment, Provided non-skid footwear, Used ambulatory aids as needed (educated on \T\ assisted with). Abuse screen: Denies threats or abuse. Nutritional screening: No deficits noted. Tuberculosis screening: No symptoms or risk factors identified. Assessment: 06:32 Reassessment: No changes from previously documented assessment. cp4 07:19 General: Appears in no apparent distress. Behavior is calm, cooperative. Pain: Denies mb9 pain. Neuro: Paul Agitation-Sedation Scale (RASS): 0 - Alert and Calm Level of Consciousness is awake, alert, obeys commands, Oriented to person, place, time, situation, Appropriate for age. Cardiovascular: Heart tones S1 S2 present Patient's skin is warm and dry. Respiratory: Airway is patent Respiratory effort is even, unlabored, Respiratory pattern is regular, symmetrical, Breath sounds are clear bilaterally. GI: Abdomen is round non-distended, Bowel sounds present X 4 quads. : No signs and/or symptoms were reported regarding the genitourinary system. EENT: No signs and/or symptoms were reported regarding the EENT system. Derm: Skin is pink, warm \T\ dry. Musculoskeletal: Range of motion: intact in all extremities. 08:49 Reassessment: No changes from previously documented assessment. Patient and/or family mb9 updated on plan of care and expected duration. Pain level reassessed. Patient is alert, oriented x 3, equal unlabored respirations, skin warm/dry/pink. 09:51 Reassessment: No changes from previously documented assessment. Patient and/or family mb9 updated on plan of care and expected duration. Pain level reassessed. Patient is alert, oriented x 3, equal unlabored respirations, skin warm/dry/pink. 11:00 Reassessment: No changes from previously documented assessment. Patient and/or family mb9 updated on plan of care and expected duration. Pain level reassessed. Patient is alert, oriented x 3, equal unlabored respirations, skin warm/dry/pink. 11:00 Reassessment: see [facility] for further charting. mb9 Vital Signs: 06:28 BP 124 / 89; Pulse 91; Resp 18; Temp 98; Pulse Ox 100% ; Weight 151.95 kg; Height 5 ft. cp4 9 in. ; Pain 0/10; 08:49 BP 124 / 78; Pulse 74; Resp 18; Pulse Ox 98% on R/A; mb9 09:51 BP 132 / 80; Pulse 81; Resp 18; Pulse Ox 100% on R/A; mb9 06:28 Body Mass Index 49.47 (151.95 kg, 175.26 cm) cp4 06:28 Pain Scale: Adult cp4 ED Course: 06:18 Patient arrived in ED. [id number] 06:20 Radha Lora is Primary Nurse. cp4 06:23 Hima Osman MD is Attending Physician. rt 06:30 Triage completed. cp4 06:30 Arm band placed on right wrist. Patient placed in an exam room, on a stretcher. cp4 06:32 Bed in low position. Call light in reach. Side rails up X2. Provided Education on: cp4 dialysis catheter. 06:32 No provider procedures requiring assistance completed. cp4 07:04 Attending Physician role handed off by Hima Osman MD ec2 07:04 Eduardo Morse MD is Attending Physician. ec2 07:17 Basic Metabolic Panel Sent. mb9 07:17 CBC with Diff Sent. mb9 07:17 Initial lab(s) drawn, by me, sent to lab. EKG done, by ED staff, reviewed by Eduardo Morse MD. Inserted saline lock: 22 gauge in left antecubital area, using aseptic technique. 08:09 Sergio Smith is Hospitalizing Provider. ec2 08:13 Patient admitted, IV remains in place. mb9 11:03 Lab(s) recollected, by me, sent to lab. aw1 Administered Medications: No medications were administered Medication: 06:32 VIS not applicable for this client. cp4 Outcome: 08:09 Decision to Hospitalize by Provider. ec2 14:19 Admitted to Med/surg accompanied by tech, via wheelchair, jamil 14:19 Condition: stable 14:19 Instructed on the need for admit, 14:19 Patient left the ED. mb9 Signatures: Terrie Durant [id number] Kaley, Kelli Villalta RN RN mb9 Hima Osman MD MD rt Isabel Call aw1 Eduardo Morse MD MD ec2 Radha Lora cp4
--- NOTE | 2023-12-20 08:10 | EDPHYS ---
Physician Documentation [facility] Name: Joss Sheppard Age: 43 yrs Sex: Male : 1980 Arrival Date: 12/20/2023 Time: 06:16 Bed 16 Private MD: ED Physician Eduardo Morse HPI: 12/19 06:55 This 43 yrs old Black Male presents to ER via Ambulatory with complaints of PORT rt PROBLEM. 06:55 Patient is on Friday dialysis, intermittently pulled his port out rt this morning. Denies bleeding, other symptoms. Denies other acute complaints, symptoms are mild in severity, no other aggravating or alleviating factors.. Historical: - Allergies: 06:30 Iodine; cp4 - Home Meds: 06:30 lisinopril Oral [Active]; Tresiba FlexTouch U-100 100 unit/mL (3 mL) subcutaneous inpn cp4 daily [Active]; - PMHx: 06:30 Diabetes - IDDM; Dialysis (Hypertension); End stage renal disease; Hypertension; cp4 - PSHx: 06:30 right arm and RU chest fistula (en); cp4 - Immunization history:: Adult Immunizations up to date. - Infectious Disease History:: Denies. - Social history:: Smoking status: Patient denies any tobacco usage or history of. - Family history:: not pertinent. ROS: 06:55 Constitutional: Negative for fever, chills, and weight loss, Cardiovascular: Negative rt for chest pain, palpitations, and edema, Respiratory: Negative for shortness of breath, cough, wheezing, and pleuritic chest pain, Abdomen/GI: Negative for abdominal pain, nausea, vomiting, diarrhea, and constipation, MS/Extremity: Negative for injury and deformity, Skin: Negative for injury, rash, and discoloration, Neuro: Negative for headache, weakness, numbness, tingling, and seizure, Exam: 06:55 Constitutional: This is a well developed, well nourished patient who is awake, alert, rt and in no acute distress. Head/Face: Normocephalic, atraumatic. Cardiovascular: Regular rate and rhythm with a normal S1 and S2. No gallops, murmurs, or rubs. Normal PMI, no JVD. No pulse deficits. Respiratory: Lungs have equal breath sounds bilaterally, clear to auscultation and percussion. No rales, rhonchi or wheezes noted. No increased work of breathing, no retractions or nasal flaring. Abdomen/GI: Soft, non-tender, with normal bowel sounds. No distension or tympany. No guarding or rebound. No evidence of tenderness throughout. Skin: Warm, dry with normal turgor. Normal color with no rashes, no lesions, and no evidence of cellulitis. MS/ Extremity: Pulses equal, no cyanosis. Neurovascular intact. Full, normal range of motion. Neuro: Awake and alert, GCS 15, oriented to person, place, time, and situation. Cranial nerves II-XII grossly intact. Motor strength 5/5 in all extremities. Sensory grossly intact. Cerebellar exam normal. Normal gait. 06:55 Chest/axilla: No active bleeding from port insertion site, no surrounding erythema, swelling.. Vital Signs: 06:28 BP 124 / 89; Pulse 91; Resp 18; Temp 98; Pulse Ox 100% ; Weight 151.95 kg; Height 5 ft. cp4 9 in. ; Pain 0/10; 08:49 BP 124 / 78; Pulse 74; Resp 18; Pulse Ox 98% on R/A; mb9 09:51 BP 132 / 80; Pulse 81; Resp 18; Pulse Ox 100% on R/A; mb9 06:28 Body Mass Index 49.47 (151.95 kg, 175.26 cm) cp4 06:28 Pain Scale: Adult cp4 MDM: 06:23 Patient medically screened. rt 07:19 ED course: EKG obtained, independently reviewed and interpreted by me, shows normal ec2 sinus rhythm, rate of 86, no acute ST segment elevations, no QTc prolongation, intervals are nonconcerning otherwise.. 07:19 Data reviewed: vital signs. ec2 07:50 ED course: Metabolic profile shows expected changes of renal dysfunction, CBC ec2 reassuring. . 08:08 ED course: Discussed the case with the dialysis clinic who states that the access is ec2 unusable at this time, did recommend port placement and dialysis. Discussed case with general surgery who agrees, keep the patient n.p.o., will consult. Will hospitalize the patient. Discussed case with hospitalist as well who is pending admission. 08:09 ED course: MDM: All lab tests ordered and reviewed as documented above; Independent ec2 interpretation of tests: EKG as above;; Discuss inpatient hospitalization: Yes; I discussed the case with: Hospitalist, surgeon . 12/19 07:09 Order name: Basic Metabolic Panel; Complete Time: 07:49 ec2 12/19 07:09 Order name: CBC with Diff; Complete Time: 07:49 ec2 12/19 09:52 Order name: Basic Metabolic Panel EDMS 12/19 09:52 Order name: Basic Metabolic Panel EDMS 12/19 09:52 Order name: CBC with Automated Diff EDMS 12/19 09:52 Order name: CBC with Automated Diff EDMS 12/19 09:52 Order name: Magnesium EDMS 12/19 09:52 Order name: Magnesium EDMS 12/19 09:52 Order name: Phosphorus EDMS 12/19 09:52 Order name: Phosphorus EDMS 12/19 11:47 Order name: Glucose, Ancillary Testing EDMS 12/19 07:09 Order name: EKG; Complete Time: 07:10 ec2 12/19 09:52 Order name: CONS Physician Consult EDMS 12/19 07:09 Order name: Cardiac monitoring; Complete Time: 07:17 ec2 12/19 07:09 Order name: EKG - Nurse/Tech; Complete Time: 07:17 ec2 12/19 07:09 Order name: IV Saline Lock; Complete Time: 07:17 ec2 12/19 07:09 Order name: Labs collected and sent; Complete Time: 07:17 ec2 12/19 07:09 Order name: O2 Per Protocol; Complete Time: 07:11 ec2 12/19 07:09 Order name: O2 Sat Monitoring; Complete Time: 07:11 ec2 12/19 11:00 Order name: Labs - recollect needed: GREEN TOP; Complete Time: 11:03 bc6 Administered Medications: No medications were administered Disposition Summary: 12/20/23 08:09 Hospitalization Ordered Notes: Hospitalization Status: Inpatient Admission ec2 Provider: Sergio Smith ec2 Location: Telemetry/MedSurg (Inpatient) ec2 Condition: Stable ec2 Problem: an ongoing problem ec2 Symptoms: are unchanged ec2 Bed/Room Type: Standard ec2 Room Assignment: [facility](12/20/23 13:25) bc6 Diagnosis - Other complication of vascular dialysis catheter ec2 Forms: - Medication Reconciliation Form ec2 - SBAR form ec2 - Leadership Thank You Letter ec2 Signatures: Dispatcher [employer] EDHima Weinberg MD MD rt Barby Venegas 6 Eduardo Morse MD MD ec2 Radha Lora 4 Corrections: (The following items were deleted from the chart) 13:25 08:09 ec2 bc6
--- NOTE | 2023-12-20 10:00 | P.HP ---
Certification for Inpatient Patient admitted to: Observation With expected LOS: <2 Midnights Patient will require the following post-hospital care: None Practitioner: I am a practitioner with admitting privileges, knowledge of patient current condition, hospital course, and medical plan of care. Services: Services provided to patient in accordance with Admission requirements found in Title 42 Section 412.3 of the Code of Federal Regulations Patient History Date of Service: 12/20/23 Reason for admission: dialysis port placement History of Present Illness: Joss Sheppard is a 43 year old male with pmhx hypertension, diabetes mellitusIDDM, end-stage renal disease on dialysis who presents to the ED with chief complaint of his dialysis port removed when turning over in bed. He states he rolled over in bed and his port was out laying in the bed. His regular dialysis days are Friday. Electrolytes stable, no white count, afebrile, BUN/creatinine 60/10.7, hemodynamically stable. Joss will be admitted to hospitalist service for further treatment, Dr. Marion consulted for dialysis port placement and Dr. Jean Baptiste consulted. Allergies iodine Adverse Reaction (Mild, Verified 12/17/22 11:26) gas shellfish derived Adverse Reaction (Verified 12/17/22 11:26) gas Home Medications: Calcium Acetate [Phoslo*] 1,334 mg PO TIDWM #180 tab 12/25/22 - Past Medical/Surgical History Diabetic: Yes -: IDDM -: HTN -: ESRD on HD (Dr. Jean Baptiste/ [facility]) -: Right upper extremity AV fistula -: Dialysis port - Family History Father -: Hypertension, Diabetes Mother -: Hypertension, Diabetes - Social History Smoking Status: Never smoker Alcohol use: Yes CD- Drugs: No Caffeine use: Yes Review of Systems Unremarkable (Dialysis port accidentally removed) Physical Examination - Physical Exam General: Alert, In no apparent distress, Oriented x3 HEENT: Atraumatic, Normocephalic, PERRLA Neck: Supple, 2+ carotid pulse no bruit Respiratory: Clear to auscultation bilaterally, Normal air movement Cardiovascular: Normal pulses, Regular rate/rhythm, Normal S1 S2 Capillary refill: <2 Seconds Gastrointestinal: Normal bowel sounds, Soft and benign, Distended (Obese) Musculoskeletal: No swelling Integumentary: No rashes Neurological: Normal speech, Normal tone - Studies Laboratory Data (last 24 hrs) 12/20/23 12/20/23 07:15 07:15 WBC 8.60 Hgb 11.4 L Hct 35.3 L Plt Count 415 H Sodium 136 Potassium 4.4 BUN 60 H Creatinine 10.70 H Glucose 109 H Assessment and Plan - Plan Assessement and Plan Dialysis port placement ESRD HD TTS - due to dialysis today, Friday -Dr. Jean Baptiste recommends attempting the right upper extremity AV fistula -Dr. Marion consulted -BUN/Creatinine 60/10.7, GFR 6 -Mag and phos pending, Na and potassium unremarkable History of HTN -continue home medications when appropriate Diabetes mellitus -Reports not needing treatment, recent admission he was hypoglycemic -serum glucose 109 -will hold sliding scale insulin, accucheck ACHS DVT ppx SCD Full code LOS 24 hours Discharge Plan: Home Plan to discharge in: 24 Hours - Advance Directives Does patient have a Living Will: No Does patient have a Durable POA for Healthcare: No
[2023-12-20 10:03] VITALS: BMI 49.4
[2023-12-20] MEDS ORDERED: INSULIN REGULAR (HUMAN) 100 UNIT/ML SQ SCH (11:30)
[2023-12-20] MEDS ORDERED: D50W 25 GM/50 ML SYRINGE IV ONE (11:40)
--- NOTE | 2023-12-20 14:10 | P.CNS ---
Date of Consult: 12/20/23 Reason for Consult: ESRD, malfunction of AV access Requesting Physician: Alicia Jimenez Chief Complaint: dialysis port placement History of Present Illness: Joss Sheppard is a 43 year old AA male with pmhx of IDDM, chronic malignant HTN, ESRD with initiation of HD last summer, on iHD TTS with last HD who presented to the ER after his Rt IJ TDC inadvertently came out while he was rolling in bed. He denies any bleeding from site. He denies any CP, dyspnea, fever or other. He has a Rt UE AVF that was placed earlier this year, although exact date of placement pt does not recall. He does recall that he has undergone 2nd transposition surgery on it and several weeks ago, jonah were removed. Staff at unit have not started cannulation yet. Allergies iodine Adverse Reaction (Mild, Verified 12/17/22 11:26) gas shellfish derived Adverse Reaction (Verified 12/17/22 11:26) gas Home Medications: Amlodipine [Norvasc*] 10 mg PO DAILY 06/12/18 Calcium Acetate [Phoslo*] 1,334 mg PO TIDWM #180 tab 12/25/22 Ferrous Sulfate [Ferrous Sulfate*] 325 mg PO BID tab 12/25/22 Furosemide [Lasix*] 40 mg PO BIDL #60 tab 12/25/22 Isosorbide Dinit [Isordil*] 20 mg PO TID #90 tab 12/25/22 Losartan Potassium [Cozaar*] 50 mg PO BID #60 tab 12/25/22 atenoloL [Tenormin*] 25 mg PO BEDTIME #30 tab 12/25/22 calcitrioL [Rocaltrol] 0.25 mcg PO DAILY #30 tab 12/25/22 Blood-Glucose Meter [Accu-Chek Guide Me Glucose Mtr] 1 each ACHS 30 Days #1 bottle 12/17/23 Blood-Glucose Meter [Accu-Chek Guide Monitor System] 1 each ACHS 30 Days #1 ea 12/17/23 Dextrose [Glucose] 4 gm PO ACHS PRN 30 Days #1 bottle 12/17/23 Sevelamer Carbonate [Renvela*] 800 mg PO TIDWM 12/17/23 - Past Medical/Surgical History Diabetic: Yes -: IDDM -: HTN -: ESRD on HD (Dr. Jean Baptiste/ [facility]) - Family History Father Medical History: Hypertension, Diabetes Mother Medical History: Hypertension, Diabetes - Social History Alcohol use: Yes CD- Drugs: No Caffeine use: Yes Review of Systems General: Unremarkable Eyes: Unremarkable ENT: Unremarkable Respiratory: Unremarkable Cardiovascular: Unremarkable Gastrointestinal: Unremarkable Genitourinary: Unremarkable Musculoskeletal: Unremarkable Integumentary: As per HPI Neurological: Unremarkable Physical Examination Temp Pulse Resp BP Pulse Ox 98 F 76 18 121/76 98 12/20/23 12:00 12/20/23 12:00 12/20/23 12:00 12/20/23 12:00 12/20/23 12:00 General: Alert, In no apparent distress HEENT: Atraumatic, Normocephalic Neck: Supple Respiratory: Clear to auscultation bilaterally, Normal air movement Cardiovascular: No edema, Regular rate/rhythm Gastrointestinal: No tenderness, No guarding Musculoskeletal: No contractures, Other (Rt UE brachiobasilic AVF with thrill and bruit) Integumentary: Other (xerosis, other) Neurological: Normal speech, Normal tone, Normal affect Laboratory Data (last 24 hrs) 12/20/23 12/20/23 07:15 07:15 WBC 8.60 Hgb 11.4 L Hct 35.3 L Plt Count 415 H Sodium 136 Potassium 4.4 BUN 60 H Creatinine 10.70 H Glucose 109 H Conclusions/Impression: A/P) 1. 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 Last OP HD on . 2. Malfunction of AV access with CVC out. Pt does have a Rt UE brachiobasilic AVF and op report reviewed, he underwent 2nd stage transposition surgery just over a month ago, staple removed, good thrill present although there were reports of some possible peripheral stenosis/mild venous HTN. Will attempt cannulation and use on this admission and if successful, will avoid needing to place another TDC. 2. Metab profile stable, HD orders placed, will dialyze this afternoon or tmrw AM depending on HD RN avail. 4. Chronic HTN -current BP range acceptable, pt does not show signs of hypervolemia Wil Singh MD, ABBI
[2023-12-20 14:29] VITALS: O2SAT 100
[2023-12-20] MEDS: LIDOCAINE/PRILOCAINE CREAM TOP SCH (15:00)
--- NOTE | 2023-12-20 16:08 | P.CNS ---
Date of Consult: 12/20/23 PC: I was asked to see this patient to loss his temporary dialysis catheter. HPC: Catheter apparently came out inadvertently. Presents now to the ER. PSHx: Recent AV fistula placed right arm. PMHx: End-stage renal disease requiring dialysis Social Hx: Iodine Impression: I was consulted in regards to placement of a temporary dialysis catheter. The patient does have a fistula in place, Plan: Core Shaper Top is going to cannulate and see if his fistula works for his dialysis. This will save the patient having to have the placement of another temporary catheter. Strongly support this plan.
[2023-12-20 16:55] LABS: Phosphorus 7.3 mg/dL (2.5-4.9)
[2023-12-20] MEDS: FUROSEMIDE 40 MG/4 ML VIAL IV SCH (17:42)
[2023-12-21 03:52] LABS: Absolute Basophils 0.1 K/uL (0-0.5); Absolute Eosinophils 0.6 K/uL (0-0.5); Absolute Monocytes 0.9 K/uL (0.1-1.3); Absolute Neutrophil 4.6 K/uL (1.8-8.0); Basophils % 0.9 % (0-1.3); Eosinophils % 6.9 % (0-4.4); Hematocrit 35.5 % (39.6-49.0); Hemoglobin 11.4 g/dL (13.6-17.9); MCH 26.1 pg (27.0-35.0); MCHC 32.1 g/dL (32.0-36.0); MCV 81.1 fL (80-100); MPV 7.4 fL (7.6-11.3); Monocytes % 11.1 % (3.3-12.3); Neutrophils % 56.1 % (41.7-73.7); Nucleated Red Blood Cells % 0.2 % (0-0); Platelets 401 thou/uL (152-406); RBC Red Blood Cell Count 4.37 M/uL (4.33-5.43); Red Cell Distribution Width 18.2 % (12.1-15.2)
[2023-12-21 04:29] LABS: Anion Gap 16.1 mEq/L (5.0-15.0); Magnesium 2.4 mg/dL (1.6-2.4); Phosphorus 7.8 mg/dL (2.5-4.9); Potassium 4.1 mEq/L (3.5-5.1)
--- NOTE | 2023-12-21 07:04 | P.PN ---
Date of Service: 12/21/23 Subjective ROS 10 point ROS as noted above, otherwise negative Physical Exam General: Alert, In no apparent distress, Oriented x3 HEENT: Atraumatic, Normocephalic, PERRLA Neck: Supple, 2+ carotid pulse no bruit Respiratory: Clear to auscultation bilaterally, Normal air movement Cardiovascular: Normal pulses, Regular rate/rhythm, Normal S1 S2 Capillary refill: <2 Seconds Gastrointestinal: Normal bowel sounds, Soft and benign, Distended (Obese) Musculoskeletal: No swelling Integumentary: No rashes Neurological: Normal speech, Normal tone Vitals Reviewed Problem list Dialysis port placement ESRD HD TTS History of HTN Diabetes mellitus Assessment and Plan Dialysis port placement ESRD HD TTS - due to dialysis today, Friday -Dr. Jean Baptiste recommends attempting the right upper extremity AV fistula -Dr. Marion consulted -BUN/Creatinine 60/10.7, GFR 6 -Mag and phos pending, Na and potassium unremarkable History of HTN -continue home medications when appropriate Diabetes mellitus -Reports not needing treatment, recent admission he was hypoglycemic -serum glucose 109 -will hold sliding scale insulin, accucheck ACHS DVT ppx SCD Full code LOS 24 hours Discharge Plan: Home Plan to discharge in: 24 Hours
[2023-12-21] MEDS: CALCIUM ACETATE 667 MG TAB PO SCH (07:55)
[2023-12-21 12:15] VITALS: TEMP 97.8
--- NOTE | 2023-12-21 12:55 | P.PN ---
Renal note (S) Pt seen in HD, spent significant time with the motors assembler in examining pt's AVF and identifying areas for cannulation and while it took several attempts, ultimately two needle cannulation was successful and pt observed on HD with Qb of 250 ml/min (O) Vitals reviewed in the EMR Gen: NAD, non tachypnec Respiratory: Clear to auscultation bilaterally, Normal air movement Cardiovascular: No edema, Regular rate/rhythm Gastrointestinal: No tenderness, No guarding Musculoskeletal: No contractures, Other (Rt UE brachiobasilic AVF with thrill and bruit) Integumentary: Other (xerosis, other) Neurological: Normal speech, Normal tone, Normal affect Laboratory Data (last 24 hrs) 12/20/23 12/20/23 07:15 07:15 WBC 8.60 Hgb 11.4 L Hct 35.3 L Plt Count 415 H Sodium 136 Potassium 4.4 BUN 60 H Creatinine 10.70 H Glucose 109 H Conclusions/Impression: A/P) 1. 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 Last OP HD on . HD today via AV access 2. Malfunction of dialysis access (note corrected) with CVC coming out. Pt does have a Rt UE brachiobasilic AVF and op report reviewed, he underwent 2nd stage transposition surgery just over a month ago, staple removed, good thrill present although there were reports of some possible peripheral stenosis/mild venous HTN . Did attempt cannulation and were successful so no need for TDC currently 2. Will dialyze for clearance. Next OP HD will be Tu 4. Chronic HTN -current BP range acceptable, pt does not show signs of hypervolemia, f/u post HD BP Wil Singh MD, ABBI
--- NOTE | 2023-12-21 14:48 | P.DS ---
Admission Date: 12/20/23 Discharge Date: 12/21/23 Disposition: ROUTINE DISCHARGE Discharge Condition: GOOD Reason for Admission: dialysis port placement Brief History of Present Illness: Diagnosis Dialysis port placement ESRD HD TTS History of HTN Diabetes mellitus HPI 12/20/23 Joss Sheppard is a 43 year old male with pmhx hypertension, diabetes mellitusIDDM, end-stage renal disease on dialysis who presents to the ED with chief complaint of his dialysis port removed when turning over in bed. He states he rolled over in bed and his port was out laying in the bed. His regular dialysis days are Friday. Electrolytes stable, no white count, afebrile, BUN/creatinine 60/10.7, hemodynamically stable. Joss will be admitted to hospitalist service for further treatment, Dr. Marion consulted for dialysis port placement and Dr. Jean Baptiste consulted. Hospital Course: Joss Sheppard is a pleasant 43-year-old male with a past medical history significant for hypertension, diabetes mellitusIDDM, end-stage renal disease on dialysis who was admitted to the [facility] on 12/20/2023 for dialysis port malfunction. Joss Sheppard presented to the ED with chief complaint of dialysis port malfunction. Dr. Singh was consulted and recommended dialysis through the AV fistula which was successful. Next outpatient dialysis date if Friday12/23/23. He is tolerating p.o. diet, tolerated dialysis today, ambulating independently, and hemodynamically stable for discharge. On 12/21/2023, Yomaira was seen on morning rounds and deemed medically stable for discharge. Joss was discharged with instructions to schedule follow-up appointments with PCP and Dr. Singh. The patient was given the opportunity to ask questions and reported no further questions. Furthermore, all questions were answered to the best of my ability. A copy of this discharge summary will be sent to the above providers to facilitate continuity of care. Physical Exam General: Alert and oriented x 3, no acute distress, comfortable HEENT: Atraumatic, Normocephalic, PERRLA Neck: Supple, 2+ carotid pulse no bruit Respiratory: Clear to auscultation bilaterally, symmetrical chest wall movement, on room air Cardiovascular: Normal pulses, RRR, Normal S1 S2 Capillary refill: <2 Seconds Gastrointestinal: Normal bowel sounds, Soft and benign on palpation, Distended (Obese) Musculoskeletal: No swelling Integumentary: No rashes Neurological: Normal speech, Normal tone Vital Signs/Physical Exam: Temp Pulse Resp BP Pulse Ox 97.8 F 87 18 140/82 96 12/21/23 12:00 12/21/23 12:00 12/21/23 12:00 12/21/23 12:00 12/21/23 12:00 Laboratory Data at Discharge: WBC 8.10 thou/uL (4.3-10.9) 12/21/23 03:24 Hgb 11.4 g/dL (13.6-17.9) L 12/21/23 03:24 Hct 35.5 % (39.6-49.0) L 12/21/23 03:24 Plt Count 401 thou/uL (152-406) 12/21/23 03:24 Sodium 136 mEq/L (136-145) 12/21/23 03:24 Potassium 4.1 mEq/L (3.5-5.1) 12/21/23 03:24 BUN 69 mg/dL (7-18) H 12/21/23 03:24 Creatinine 11.30 mg/dL (0.70-1.30) H 12/21/23 03:24 Glucose 113 mg/dL (74-106) H 12/21/23 03:24 Phosphorus 7.8 mg/dL (2.5-4.9) H 12/21/23 03:24 Magnesium 2.4 mg/dL (1.6-2.4) 12/21/23 03:24 Home Medications: Calcium Acetate [Phoslo*] 1,334 mg PO TIDWM #180 tab 12/25/22 Physician Discharge Instructions: Joss Sheppard presented to the ED with chief complaint of dialysis port malfunction. Dr. Singh was consulted and recommended dialysis through the AV fistula which was successful. Next outpatient dialysis date if Friday12/23/23. 1. Please call and schedule a follow-up appointment with your PCP for yearly exam or for any other health issues that occur prior to that visit - Please follow-up with your PCP for medication refills/adjustments 2. Please call and schedule a follow-up appointment with Dr. Singh -Next outpatient hemodialysis is 12/23/2023 3. Continue renal diet 4. No activity restrictions 5. Return to the ED if symptoms worsen Diet: Renal Activity: Ad miesha Followup: Jaxon Casas MD [Primary Care Provider] - Wil Singh [ACTIVE - CAN ADMIT] -
[2023-12-21 16:18] VITALS: BP 126/93
--- NOTE | 2023-12-22 14:59 | EKG ---
Test Date: 2023-12-20 Test Time: 07:16:13 Speed Belt Sander: SURYA MEASUREMENT RESULTS: Intervals: Rate: 86 [place]: 166 QRSD: 100 QT: 376 QTc: 449 [place]: P: 65 [place]: 166 QRS: 61 T: 64 INTERPRETIVE STATEMENTS: Normal sinus rhythm Normal ECG Compared to ECG 10/07/2023 14:28:17 Sinus tachycardia no longer present Electronically Signed On 12-22-23 14:52:32 CDT by Cayetano Barrera
== END 2023-12-21 17:15 | disposition home or self-care (01) ==
LOC: ER 06:16 → ERHOLD 09:47 → 2ND 14:17
PROVIDERS: ADMIT Internal Medicine; ATTEND Internal Medicine
DX: T82.898A Other specified complication of vascular prosthetic devices, implants and grafts, initial encounter (principal); N18.6 End stage renal disease; I1A.0 Resistant hypertension; E11.22 Type 2 diabetes mellitus with diabetic chronic kidney disease; I12.0 Hypertensive chronic kidney disease with stage 5 chronic kidney disease or end stage renal disease; N04.9 Nephrotic syndrome with unspecified morphologic changes; N05.9 Unspecified nephritic syndrome with unspecified morphologic changes; Z99.2 Dependence on renal dialysis; Z79.4 Long term (current) use of insulin; Z88.8 Allergy status to other drugs, medicaments and biological substances; Z91.013 Allergy to seafood
CPT/HCPCS: 93005; 85025 ×2; 80048 ×2; 36415; 83735 ×2; 84100 ×2; 82947 ×6; 90935; 99285; J1940 ×2; J1644; G0378 ×4